=== PATIENT | male | born 1930 | race Caucasian/White ===

== ENCOUNTER 2016-10-21 05:35 | Inpatient (IN) ==
--- NOTE | 2016-10-21 05:53 | Emergency Department Note ---
START Narrative - START START: Patient presents from home with family for evaluation of MOUSTAPHA. He has had a dry cough for about a week. He states that he started coughing at 04:00 today and has not been able to stop. He now has some soreness in his chest. He denies fever, vomiting, or peripheral edema. He reports a Hx of CHF in the past. He was seen by Cardiology in May of last year and had a TTE done. This showed an EF of 60%. He had a stress test 11/2015 which was normal. He describes mild orthopnea. Sats are 93% on room air. We will check labs, CXR, EKG, and treat his symptoms. CAre of this patient will be transferred to Jesús Mejía CNP at shift change.
--- NOTE | 2016-10-21 06:05 | Emergency Department Note ---
Disposition Clinical Impression: Community acquired pneumonia Disposition: Home, Self-Care Condition: Good Time of Disposition: 07:24 SOB HPI - General Chief Complaint: ED Shortness of Breath/Dyspnea Stated Complaint: difficulty in breathing Time Seen by Provider: 10/21/16 05:46 Source: patient, family Limitations: no limitations Nursing Notes Reviewed: Yes Vital Signs Reviewed: Yes - History of Present Illness 85-year-old nontoxic-appearing male presents to the emergency department for a chief complaint of shortness of breath. The patient states that he has had a nonproductive cough for the past week. He states that yesterday afternoon, however, he began experiencing increased shortness of breath, as well as a worsening of his cough. He also describes a feeling of general malaise. He states that he is frequently chilled at night as of recent, however denies any overt fevers. He admits to being slightly nauseated, however denies any fever. He states that his shortness of breath is made worsened by exertion, as well as lying flat. He states that he has noticed an increased amount of swelling in his bilateral lower extremities. He denies any chest pain, but states that his chest is "sore from coughing". He denies any abdominal pain, diarrhea, constipation. The patient's son who is in the room states that the patient has previously been prescribed 2 different inhalers for his COPD from a single visit to a packaging tech here at [place], however the patient stopped taking them after only a brief duration, as he felt that "they just are not helping me". He denies any hemoptysis or pain with inspiration. He denies any unilateral leg or calf swelling. Pt Subjective Complaint: shortness of breath, cough Onset (ago): week(s) (1 week) Context: recent illness Consistency/Duration: gradually worsening Improves with: oxygen Worsens with: lying flat, exertion Known history of: COPD, congestive heart failure, diabetes, DVT Associated symptoms: Reports: fever, cough, orthopnea, nausea/vomiting (Nausea but no vomiting). Denies: chest pain, pain with inspiration, wheezing, sputum production, lower extremity pain, hemoptysis, diaphoresis, abdominal pain Treatment prior to arrival: none Cough present: Yes Cough Description: Involuntary Cough Frequency: Intermittent Sputum production: No - Related Data Home Medications Medication Instructions Recorded Confirmed Allopurinol [Zyloprim] 100 mg PO DAILY 05/13/15 10/21/16 Aspirin 81 mg PO DAILY 05/13/15 10/21/16 Cholecalciferol (Vitamin D3) 5,000 mg PO DAILY 05/13/15 10/21/16 [Vitamin D3] Insulin DETEMIR [Levemir] 45 unit SQ BID 05/13/15 10/21/16 Losartan [Cozaar] 25 mg PO DAILY 05/13/15 10/21/16 Pantoprazole [Protonix] 40 mg PO DAILY 05/13/15 10/21/16 Sertraline HCl [Zoloft] 25 mg PO HS 05/13/15 10/21/16 Simvastatin [Zocor] 20 mg PO HS 05/13/15 10/21/16 Vitamin E 400 unit PO DAILY 05/13/15 10/21/16 Levothyroxine [Synthroid] 50 mcg PO DAILY 11/29/15 10/21/16 Ranitidine HCl [Zantac] 150 mg PO HS 12/12/15 10/21/16 Insulin LISPRO [Humalog] 20 unit SQ QAM 04/27/16 10/21/16 Insulin LISPRO [Humalog] 25 unit SQ 1200 04/27/16 10/21/16 Insulin LISPRO [Humalog] 30 unit SQ QPM 04/27/16 10/21/16 Furosemide [Lasix] 40 mg PO DAILY 10/21/16 10/21/16 Previous Rx's Medication Instructions Recorded Nitroglycerin 0.4 mg SL Q5MIN PRN #10 tab.subl 05/14/15 Isosorbide MONOnitrate (24 HR) 30 mg PO DAILY #30 tab.er.24h 04/29/16 [Imdur] Metoprolol Tartrate [Lopressor] 50 mg PO BID #60 tablet 04/29/16 Albuterol Sulfate [Albuterol 2 puff IH Q4H PRN 30 Days 10/21/16 Inhaler] Budesonide/Formoterol 160/4.5 2 puff IH BIDR #1 inhaler 10/21/16 [Symbicort 160/4.5] Levofloxacin [Levaquin] 750 mg PO Q48H 7 Days 10/21/16 PredniSONE 40 mg PO DAILY #7 tablet 10/21/16 Allergies Allergy/AdvReac Type Severity Reaction Status Date / Time morphine Allergy Rash Verified 10/21/16 05:41 All systems ED: reviewed and negative except as stated. Constitutional: Reports: as per HPI, chills. Denies: fever, weakness, weight change Cardiovascular: Reports: as per HPI, dyspnea on exertion, orthopnea, edema ( Bilateral lower extremities). Denies: chest pain, palpitations, syncope Respiratory: Reports: as per HPI, cough, dyspnea, wheezes. Denies: hemoptysis, stridor, sputum production Gastrointestinal: Reports: as per HPI, nausea. Denies: abdominal pain, vomiting , diarrhea, constipation, hematemesis, melena, hematochezia Genitourinary: Denies: urgency, dysuria, frequency, hematuria Musculoskeletal: Denies: back pain, neck pain, arthralgia, myalgia Integumentary: Denies: rash, abrasion, lesions Neurological: Denies: headache, weakness, numbness, paresthesias, confusion, abnormal gait, vertigo Endocrine: Denies: fatigue Hematological/Lymphatic: Denies: easy bleeding, easy bruising Past Medical History - Past Medical History Attestation: Yes The following information was validated with the patient. Source: patient Medical history: Reports: diabetes, renal disease, myocardial infarction, hyperlipidemia, hypertension, pulmonary embolus, coronary artery disease, CHF, DVT Surgical history: Reports: cholecystectomy, herniorrhaphy, other, IVC Filter Psychiatric history: Reports: no psych history - Social History Smoking Status: Former smoker Smokeless Tobacco Status: No Alcohol use: Reports: none Drug use: Reports: none Physical Exam - General Limitations: no limitations General appearance: alert - Head Head exam: atraumatic, normocephalic, normal inspection - Eye Eye exam: Present: normal appearance, PERRL, EOMI. Absent: nystagmus - ENT ENT exam: mucous membranes moist - Neck Neck exam: Present: normal inspection, full ROM, trachea midline - Chest Chest inspection: Present: normal inspection, symmetric chest wall rise - Respiratory Respiratory exam: Present: wheezes (Faint expiratory wheezes noted bilaterally and throughout the periphery upon auscultation.). Absent: respiratory distress , stridor, accessory muscle use, prolonged expiratory phase - Cardiovascular Cardiovascular exam: Present: regular rate, normal rhythm, normal heart sounds - Abdominal Exam Abdominal exam: Present: soft, Non-Tender, normal bowel sounds. Absent: tenderness, distention, guarding, rebound, rigidity - Extremities Exam Extremities exam: Present: normal inspection, full ROM. Absent: tenderness, pedal edema - Expanded Lower Extremity Exam Lower leg exam: Present: swelling (1+ pretibial edema). Absent: palpable cord, Homans' sign - Neurological Exam Neurological exam: Present: alert, oriented X3 - Psychiatric Psychiatric exam: Present: normal affect, normal mood - Skin Skin exam: Present: warm, dry, intact, normal color. Absent: rash, cyanosis, diaphoresis, erythema, pallor, mottled Course Course Narrative: At this time, laboratory results and chest x-ray are pending. Chest x-ray shows left lower lobe atelectasis versus pneumonia. Given the patient's GFR of 35, we will initiate Levaquin 750 mg IV piggyback every 48 hours and admit to the hospitalist service. I have discussed this plan with Dr. Quinn, who has had a [id number] evaluation with the patient. Dr. Quinn is in agreement with this plan. I have discussed this plan with the patient and the patient is in agreement. 0745: I spoke with Dr. Proctor of the hospitalist service. Dr. Proctor requests a noncontrast CT of the chest, as well as a CRP. Dr. Proctor states that he will see the patient in the ER shortly. 0800: Dr. Proctor at bedside. He now requests a cancellation of the chest CT. 0940: Dr. Proctor has accepted the patient for admission to the hospitalist service. Vital Signs Temperature 98.7 F 10/21/16 05:38 Pulse Rate 85 10/21/16 05:38 Respiratory Rate 20 10/21/16 05:38 Blood Pressure 167/82 10/21/16 05:38 O2 Sat by Pulse Oximetry 93 L 10/21/16 05:38 Temperature 98.7 F 10/21/16 05:38 Pulse Rate 87 10/21/16 08:49 Respiratory Rate 20 10/21/16 06:34 Blood Pressure 155/79 10/21/16 08:49 O2 Sat by Pulse Oximetry 91 L 10/21/16 08:49 Oxygen Delivery Oxygen Delivery Nasal Cannula Shortness of Breath/Dyspnea - Medical Records Medical records reviewed: Yes I reviewed the patient's medical records. - Lab Data Lab results reviewed: Yes I reviewed the patient's lab results. Lab results narrative: Laboratory Last Values WBC 9.5 K/mcL (4.3-11.1) 10/21/16 06:05 RBC 4.78 M/mcL (4.19-5.50) 10/21/16 06:05 Hgb 11.3 g/dL (12.9-16.9) L 10/21/16 06:05 Hct 38.0 % (37.5-50.1) 10/21/16 06:05 MCV 79.5 fL (83.0-100.0) L 10/21/16 06:05 MCH 23.6 pg (28.0-33.3) L 10/21/16 06:05 MCHC 29.7 g/dL (31.6-35.5) L 10/21/16 06:05 RDW 18.6 % (11.5-14.5) H 10/21/16 06:05 Plt Count 256 K/mcL (140-400) 10/21/16 06:05 MPV 10.6 fL (9.4-12.4) 10/21/16 06:05 Immature Gran % 0.3 % (0-4) 10/21/16 06:05 Seg Neutrophils % 80.5 % 10/21/16 06:05 Lymphocytes % 8.8 % 10/21/16 06:05 Monocytes % 8.3 % 10/21/16 06:05 Eosinophils % 1.4 % 10/21/16 06:05 Basophils % 0.7 % 10/21/16 06:05 Neutrophils # 7.6 K/mcL (1.6-8.9) 10/21/16 06:05 Lymphocytes # 0.8 K/mcL (0.6-4.6) 10/21/16 06:05 Monocytes # 0.8 K/mcL (0.0-1.3) 10/21/16 06:05 Eosinophils # 0.1 K/mcL (0.0-0.6) 10/21/16 06:05 Basophils # 0.1 K/mcL (0.0-0.2) 10/21/16 06:05 PT 11.6 Seconds (9.4-12.1) 10/21/16 06:05 INR 1.1 10/21/16 06:05 APTT 31.5 Seconds (26.0-36.0) 10/21/16 06:05 Sodium 140 mEq/L (136-145) 10/21/16 06:05 Potassium 4.1 mEq/L (3.5-4.5) 10/21/16 06:05 Chloride 106 mEq/L (98-109) 10/21/16 06:05 Carbon Dioxide 23 mEq/L (19-29) 10/21/16 06:05 BUN 22 mg/dL (8-26) 10/21/16 06:05 Creatinine 1.83 mg/dL (0.72-1.25) H 10/21/16 06:05 Est GFR ( Amer) 43 (> 60) L 10/21/16 06:05 Est GFR (Non-Af Amer) 35 (> 60) L 10/21/16 06:05 BUN/Creatinine Ratio 12 (6-26) 10/21/16 06:05 Glucose 127 mg/dL (70-99) H 10/21/16 06:05 Calculated Osmolality 295 (280-300) 10/21/16 06:05 Calcium 9.4 mg/dL (8.6-10.8) 10/21/16 06:05 Total Bilirubin 0.8 mg/dL (0.2-1.2) 10/21/16 06:05 Direct Bilirubin 0.2 mg/dL (0.0-0.5) 10/21/16 06:05 Indirect Bilirubin 0.6 mg/dL (0.0-1.2) 10/21/16 06:05 AST 31 Units/L (5-34) 10/21/16 06:05 ALT 18 Units/L (0-55) 10/21/16 06:05 Alkaline Phosphatase 75 Units/L (38-126) 10/21/16 06:05 Troponin I 0.00 ng/mL (0-0.03) 10/21/16 06:05 B-Natriuretic Peptide 189 pg/mL (0-100) H 10/21/16 06:05 Serum Total Protein 7.2 g/dL (6.0-8.3) 10/21/16 06:05 Albumin 3.4 g/dL (3.5-5.0) L 10/21/16 06:05 Globulin 3.8 g/dL (2.4-3.5) H 10/21/16 06:05 Albumin/Globulin Ratio 0.9 (1.1-2.2) L 10/21/16 06:05 Result diagrams: 10/21/16 06:05 10/21/16 06:05 Lab Results 10/21/16 10/21/16 10/21/16 Range/Units 06:05 06:05 06:05 WBC 9.5 (4.3-11.1) K/mcL RBC 4.78 (4.19-5.50) M/mcL Hgb 11.3 L (12.9-16.9) g/dL Hct 38.0 (37.5-50.1) % MCV 79.5 L (83.0-100.0) fL MCH 23.6 L (28.0-33.3) pg MCHC 29.7 L (31.6-35.5) g/dL RDW 18.6 H (11.5-14.5) % Plt Count 256 (140-400) K/mcL MPV 10.6 (9.4-12.4) fL Immature Gran % 0.3 (0-4) % Seg Neutrophils % 80.5 % Lymphocytes % 8.8 % Monocytes % 8.3 % Eosinophils % 1.4 % Basophils % 0.7 % Neutrophils # 7.6 (1.6-8.9) K/mcL Lymphocytes # 0.8 (0.6-4.6) K/mcL Monocytes # 0.8 (0.0-1.3) K/mcL Eosinophils # 0.1 (0.0-0.6) K/mcL Basophils # 0.1 (0.0-0.2) K/mcL PT 11.6 (9.4-12.1) Seconds INR 1.1 APTT 31.5 (26.0-36.0) Seconds Sodium 140 (136-145) mEq/L Potassium 4.1 (3.5-4.5) mEq/L Chloride 106 (98-109) mEq/L Carbon Dioxide 23 (19-29) mEq/L BUN 22 (8-26) mg/dL Creatinine 1.83 H (0.72-1.25) mg/dL Est GFR ( Amer) 43 L (> 60) Est GFR (Non-Af Amer) 35 L (> 60) BUN/Creatinine Ratio 12 (6-26) Glucose 127 H (70-99) mg/dL Calculated Osmolality 295 (280-300) Calcium 9.4 (8.6-10.8) mg/dL Total Bilirubin 0.8 (0.2-1.2) mg/dL Direct Bilirubin 0.2 (0.0-0.5) mg/dL Indirect Bilirubin 0.6 (0.0-1.2) mg/dL AST 31 (5-34) Units/L ALT 18 (0-55) Units/L Alkaline Phosphatase 75 (38-126) Units/L Troponin I (0-0.03) ng/mL C-Reactive Protein 19 H (Less than 5) mg/L B-Natriuretic Peptide (0-100) pg/mL Serum Total Protein 7.2 (6.0-8.3) g/dL Albumin 3.4 L (3.5-5.0) g/dL Globulin 3.8 H (2.4-3.5) g/dL Albumin/Globulin Ratio 0.9 L (1.1-2.2) 10/21/16 10/21/16 Range/Units 06:05 06:05 WBC (4.3-11.1) K/mcL RBC (4.19-5.50) M/mcL Hgb (12.9-16.9) g/dL Hct (37.5-50.1) % MCV (83.0-100.0) fL MCH (28.0-33.3) pg MCHC (31.6-35.5) g/dL RDW (11.5-14.5) % Plt Count (140-400) K/mcL MPV (9.4-12.4) fL Immature Gran % (0-4) % Seg Neutrophils % % Lymphocytes % % Monocytes % % Eosinophils % % Basophils % % Neutrophils # (1.6-8.9) K/mcL Lymphocytes # (0.6-4.6) K/mcL Monocytes # (0.0-1.3) K/mcL Eosinophils # (0.0-0.6) K/mcL Basophils # (0.0-0.2) K/mcL PT (9.4-12.1) Seconds INR APTT (26.0-36.0) Seconds Sodium (136-145) mEq/L Potassium (3.5-4.5) mEq/L Chloride (98-109) mEq/L Carbon Dioxide (19-29) mEq/L BUN (8-26) mg/dL Creatinine (0.72-1.25) mg/dL Est GFR ( Amer) (> 60) Est GFR (Non-Af Amer) (> 60) BUN/Creatinine Ratio (6-26) Glucose (70-99) mg/dL Calculated Osmolality (280-300) Calcium (8.6-10.8) mg/dL Total Bilirubin (0.2-1.2) mg/dL Direct Bilirubin (0.0-0.5) mg/dL Indirect Bilirubin (0.0-1.2) mg/dL AST (5-34) Units/L ALT (0-55) Units/L Alkaline Phosphatase (38-126) Units/L Troponin I 0.00 (0-0.03) ng/mL C-Reactive Protein (Less than 5) mg/L B-Natriuretic Peptide 189 H (0-100) pg/mL Serum Total Protein (6.0-8.3) g/dL Albumin (3.5-5.0) g/dL Globulin (2.4-3.5) g/dL Albumin/Globulin Ratio (1.1-2.2) - Radiology Data Radiology results reviewed: Yes I reviewed the patient's radiology results. - EKG Data EKG attestation: Yes I reviewed and interpreted this EKG. EKG results narrative: EKG reviewed by Dr. Butler as well. EKG shows a sinus rhythm at a rate of 80 bpm with a probable inferior SC, probably old. No STEMI. EKG shows normal: Reports: sinus rhythm Rate: Reports: normal Rhythm: Reports: NSR Attestation Statement - Attestation Attestation: For this encounter, I have reviewed the [employer]ATH[employer] BUFFER or PA documentation, treatment plan, and medical decision making; and I have had face to face time with this patient. 85-year-old who comes in with increasing shortness of breath and cough. Physical exam he appears comfortable somewhat tachypneic. Chest x-ray shows left lower lobe atelectasis versus pneumonia. Count is normal. Troponin is negative slight elevation in BNP. Patient will be admitted for further evaluation and treatment.
[2016-10-21 06:17] LABS: Basophils # 0.1 K/mcL (0.0-0.2); Basophils % 0.7 %; Eosinophils # 0.1 K/mcL (0.0-0.6); Eosinophils % 1.4 %; Hemoglobin 11.3 g/dL (12.9-16.9); Immature Granulocytes % 0.3 % (0-4); Lymphocytes # 0.8 K/mcL (0.6-4.6); Lymphocytes % 8.8 %; Mean Corpuscular HGB Conc 29.7 g/dL (31.6-35.5); Mean Corpuscular Hemoglobin 23.6 pg (28.0-33.3); Mean Corpuscular Volume 79.5 fL (83.0-100.0); Mean Platelet Volume 10.6 fL (9.4-12.4); Monocytes # 0.8 K/mcL (0.0-1.3); Monocytes % 8.3 %; Neutrophils # 7.6 K/mcL (1.6-8.9); Platelet Count 256 K/mcL (140-400); Red Blood Count 4.78 M/mcL (4.19-5.50); Red Cell Distribution Width 18.6 % (11.5-14.5); Segmented Neutrophils % 80.5 %
[2016-10-21 06:32] LABS: Albumin 3.4 g/dL (3.5-5.0); Albumin/Globulin Ratio 0.9 (1.1-2.2); Bilirubin,Direct 0.2 mg/dL (0.0-0.5); Bilirubin,Indirect 0.6 mg/dL (0.0-1.2); Bilirubin,Total 0.8 mg/dL (0.2-1.2); Calcium 9.4 mg/dL (8.6-10.8); Globulin 3.8 g/dL (2.4-3.5); Potassium 4.1 mEq/L (3.5-4.5); Total Protein 7.2 g/dL (6.0-8.3)
[2016-10-21 06:45] LABS: INR 1.1; Prothrombin Time 11.6 Seconds (9.4-12.1)
[2016-10-21 06:47] LABS: Activated Partial Thrombo Time 31.5 Seconds (26.0-36.0)
[2016-10-21] MEDS ORDERED: Levofloxacin 750 MG/150 ML 750 MG/150 ML BAG IVPB SCH (07:06)
[2016-10-21] MEDS ORDERED: Albuterol 2.5 MG/3 ML NEBULIZER IH ONE (07:06)
[2016-10-21] MEDS ORDERED: predniSONE 20 MG TABLET PO ONE (08:39)
--- NOTE | 2016-10-21 08:44 | Discharge Summary ---
Date of Encounter: 10/21/16 Time of Encounter: 08:15 - Discharge Diagnosis (1) COPD exacerbation Priority: Primary Status: Acute Comments: Not hypoxic NOT WHEEZING nOT COUGHING AT THE TIME OF MY EXAM nO DIFFICULTY breathing. Chest is clear though diminished, not unusual with COPD. CXR: No infiltrates, fibrosis and bibasilar atelectasis. Reviewed prior CT 05/2016, confirms emphysema, fibrosis and bibasilar atelectasis. DC home on prednisone 40mg po x 7 days Symbicort 2puff BID aLBUTEROL MDI 2 puff q4h PRN FOR sob. F/U with PCP and incident response engineer. (2) Acute bronchitis Priority: Primary Status: Acute Qualifiers: Bronchitis organism: unspecified organism Qualified Code(s): J20.9 - Acute bronchitis, unspecified - Discharge Medications Home Medications: Allopurinol [Zyloprim] 100 mg PO DAILY 05/13/15 [History] Aspirin 81 mg PO DAILY 05/13/15 [History] Cholecalciferol (Vitamin D3) [Vitamin D3] 5,000 mg PO DAILY 05/13/15 [History] Insulin DETEMIR [Levemir] 45 unit SQ BID 05/13/15 [History] Losartan [Cozaar] 25 mg PO DAILY 05/13/15 [History] Pantoprazole [Protonix] 40 mg PO DAILY 05/13/15 [History] Sertraline HCl [Zoloft] 25 mg PO HS 05/13/15 [History] Simvastatin [Zocor] 20 mg PO HS 05/13/15 [History] Vitamin E 400 unit PO DAILY 05/13/15 [History] Nitroglycerin 0.4 mg SL Q5MIN PRN #10 tab.subl 05/14/15 [Rx] Levothyroxine [Synthroid] 50 mcg PO DAILY 11/29/15 [History] Ranitidine HCl [Zantac] 150 mg PO HS 12/12/15 [History] Insulin LISPRO [Humalog] 20 unit SQ QAM 04/27/16 [History] Insulin LISPRO [Humalog] 25 unit SQ 1200 04/27/16 [History] Insulin LISPRO [Humalog] 30 unit SQ QPM 04/27/16 [History] Isosorbide MONOnitrate (24 HR) [Imdur] 30 mg PO DAILY #30 tab.er.24h 04/29/16 [ Rx] Metoprolol Tartrate [Lopressor] 50 mg PO BID #60 tablet 04/29/16 [Rx] Albuterol Sulfate [Albuterol Inhaler] 2 puff IH Q4H PRN 30 Days 10/21/16 [Rx] Budesonide/Formoterol 160/4.5 [Symbicort 160/4.5] 2 puff IH BIDR #1 inhaler 03/30 [Rx] Furosemide [Lasix] 40 mg PO DAILY 10/21/16 [History] Levofloxacin [Levaquin] 750 mg PO Q48H 7 Days 10/21/16 [Rx] PredniSONE 40 mg PO DAILY #7 tablet 10/21/16 [Rx] Allergies/Adverse Reactions: Allergies morphine Allergy (Verified 10/21/16 05:41) Rash Procedures/tests Complete & Pending: Procedures Performed prior 72 hours Category Date Time Status ECG 12 lead ECG [ECG] Stat Y 10/21/16 05:46 Ordered Primary care physician: Corina Kumari CNP Consults: Vinay Proctor (Hospitalist) Discharging clinician: Vinay Proctor Anticipated date of discharge: 10/21/16 - Patient Status Disposition: Home, Self-Care Condition: Good Functional capacity at discharge: independent ambulation Overall status at discharge: patient is progressing back to baseline - Discharge Instructions Follow Up With: Corina Kumari CNP [Primary Care Provider] - - Diet and Activity Activity: resume usual activities as tolerated Diet: advance to your usual diet Hospital course: Mr. Colon is a 85 year old male - Time Spent with Patient Total time spent providing and/or coordinating discharge services: - Constitutional Vitals: Temp Pulse Resp BP Pulse Ox 98.7 F 86 20 163/79 96 10/21/16 05:38 10/21/16 07:36 10/21/16 06:34 10/21/16 07:36 10/21/16 07:36
--- NOTE | 2016-10-21 08:57 | Internal Medicine Consult Note ---
Date of Encounter: 10/21/16 Time of Encounter: 08:15 - Assessment and Plan (1) COPD exacerbation Current Visit: Yes Status: Acute (2) Acute bronchitis Current Visit: Yes Status: Acute Qualifiers: Bronchitis organism: unspecified organism Qualified Code(s): J20.9 - Acute bronchitis, unspecified Internal Medicine - CN: HPI - Data of Consult Requesting Physician: Lisa Sheikh - Consult Narrative History of present illness: Mr. Colon is a 85 year old male Past Med Surg Social Fam HX - Past Medical History Medical history: diabetes, renal disease, myocardial infarction, hyperlipidemia , hypertension, pulmonary embolus, coronary artery disease, CHF, DVT Psychiatric history: no psych history - Past Surgical History Surgical History: cholecystectomy, herniorrhaphy, other, IVC Filter - Social History Smoking Status: Former smoker Smokeless Tobacco Status: No Alcohol use: none Drug use: none - Family History Father Living Status: Hx Family Cardiac Disorders: Yes Hx Family Endocrine Disorder: Yes Internal Medicine - CN: Meds Allopurinol [Zyloprim] 100 mg PO DAILY 05/13/15 [History] Aspirin 81 mg PO DAILY 05/13/15 [History] Cholecalciferol (Vitamin D3) [Vitamin D3] 5,000 mg PO DAILY 05/13/15 [History] Insulin DETEMIR [Levemir] 45 unit SQ BID 05/13/15 [History] Losartan [Cozaar] 25 mg PO DAILY 05/13/15 [History] Pantoprazole [Protonix] 40 mg PO DAILY 05/13/15 [History] Sertraline HCl [Zoloft] 25 mg PO HS 05/13/15 [History] Simvastatin [Zocor] 20 mg PO HS 05/13/15 [History] Vitamin E 400 unit PO DAILY 05/13/15 [History] Nitroglycerin 0.4 mg SL Q5MIN PRN #10 tab.subl 05/14/15 [Rx] Levothyroxine [Synthroid] 50 mcg PO DAILY 11/29/15 [History] Ranitidine HCl [Zantac] 150 mg PO HS 12/12/15 [History] Insulin LISPRO [Humalog] 20 unit SQ QAM 04/27/16 [History] Insulin LISPRO [Humalog] 25 unit SQ 1200 04/27/16 [History] Insulin LISPRO [Humalog] 30 unit SQ QPM 04/27/16 [History] Isosorbide MONOnitrate (24 HR) [Imdur] 30 mg PO DAILY #30 tab.er.24h 04/29/16 [ Rx] Metoprolol Tartrate [Lopressor] 50 mg PO BID #60 tablet 04/29/16 [Rx] Albuterol Sulfate [Albuterol Inhaler] 2 puff IH Q4H PRN 30 Days 10/21/16 [Rx] Budesonide/Formoterol 160/4.5 [Symbicort 160/4.5] 2 puff IH BIDR #1 inhaler 03/30 [Rx] Furosemide [Lasix] 40 mg PO DAILY 10/21/16 [History] Levofloxacin [Levaquin] 750 mg PO Q48H 7 Days 10/21/16 [Rx] PredniSONE 40 mg PO DAILY #7 tablet 10/21/16 [Rx] Allergies morphine Allergy (Verified 10/21/16 05:41) Rash Internal Medicine - CN: Exam - Constitutional Vitals: Temp Pulse Resp BP Pulse Ox 98.7 F 87 20 155/79 91 L 10/21/16 05:38 10/21/16 08:49 10/21/16 06:34 10/21/16 08:49 10/21/16 08:49 Internal Medicine - CN: Reslt - Labs CBC & Chem 7: 10/21/16 06:05 10/21/16 06:05 - ABG Interpretation ABG results: PT/INR, D-dimer PT 11.6 Seconds (9.4-12.1) 10/21/16 06:05 Consult Discharge Plan - Plan Referrals: Corina Kumari, YARA [Primary Care Provider] - Prescriptions: Albuterol Sulfate [Albuterol Inhaler] 2 puff IH Q4H PRN 30 Days PRN Reason: Shortness Of Breath/Wheezing Budesonide/Formoterol 160/4.5 [Symbicort 160/4.5] 2 puff IH BIDR #1 inhaler Levofloxacin [Levaquin] 750 mg PO Q48H 7 Days PredniSONE 40 mg PO DAILY #7 tablet
[2016-10-21] MEDS ORDERED: Ondansetron 4 MG/2 ML VIAL IVP PRN (09:11)
[2016-10-21] MEDS ORDERED: Acetaminophen 325 MG TABLET PO PRN (09:11)
[2016-10-21] MEDS ORDERED: Naloxone 0.4 MG/ML INJ IVP PRN (09:11)
[2016-10-21] MEDS ORDERED: Nitroglycerin 0.4 MG TAB.SUBL SL PRN (09:13)
[2016-10-21] MEDS ORDERED: 0.9 % Sodium Chloride 1,000 ML IVC SCH (09:15)
[2016-10-21] MEDS ORDERED: Dextrose Gel 15 GM PO PRN ×2 (09:17)
[2016-10-21] MEDS ORDERED: *HR* Dextrose 50 % in Water (Syg) 50 ML SYRINGE IVP PRN (09:17)
[2016-10-21] MEDS ORDERED: D5% in Water 1,000 ML IV PRN (09:17)
--- NOTE | 2016-10-21 09:36 | Internal Med History&Physical ---
Date of Encounter: 10/21/16 Time of Encounter: 08:15 Assessment and Plan (1) COPD exacerbation Current visit: Yes Status: Acute (2) Acute bronchitis Current visit: Yes Status: Acute Qualifiers: Bronchitis organism: unspecified organism Qualified Code(s): J20.9 - Acute bronchitis, unspecified Internal Medicine - H&P: HPI Chief complaint: SOB, coughing x 2 days Admitted From: Emergency Dept Plans for Post Hospital Care: Home History of present illness: Mr. Colon is a 85 year old male with medical history significant for HTN, HLD, DM (II), CAD s/p MA, PCI with intra-coronary stents (2010), hx extensive PE's/dvts with IVC filter (2010), chronic diastolic CHF, CKD(III), presents with malaise, SOB and cough of 3-4 days duration. His son visited him yesterday suggested that he comes to the ED, but the patient declined. However, over a phone call this morning, the son observes the sounded ill and somewhat short of breath as he he cound speak in complete sentences. The son later reports the father may have been confused yesterday, but he brushed it off as because his father is deaf and often answers yes to every question. He did not fall. No fever, no sore -throat, no hemoptysis, hematemesis, or hematochezia. No urinary or new-onset neurological symptoms. He up-to-date with influenza and pneumococcal vaccination. He is a non-smoker. He has not been compliant with use of Symbicort because it is his impression that it is not effective. He is DNR as per discussion, he nominates his son Eriberto Colon ([phone]) as his NOK/POA. Trial of ambulation, patient was able to keep pulse ox >91%, but he was lethargic and unsteady. I understand he lives alone. ROS: A 10-point ROS was performed, positives and relevant negatives are detailed , system-symptom not mentioned is assumed negative unless otherwise stated. Positives: slight nausea, WILLIAM, his son reports probable confusion (but he is deaf), chronic deafness, chest soreness from coughing, Negatives: No PND or orthopnea., no chest pain (no pleurisy), no fever, no sore- throat, no hemoptysis, hematemesis, or hematochezia, no abdominal pain or diarrhea, no urinary or new-onset neurological symptoms. Vital Signs Temperature 98.7 F 10/21/16 05:38 Pulse Rate 85 10/21/16 05:38 Respiratory Rate 20 10/21/16 05:38 Blood Pressure 167/82 10/21/16 05:38 O2 Sat by Pulse Oximetry 93 L 10/21/16 05:38 Temperature 98.7 F 10/21/16 05:38 Pulse Rate 86 10/21/16 07:36 Respiratory Rate 20 10/21/16 06:34 Blood Pressure 163/79 10/21/16 07:36 O2 Sat by Pulse Oximetry 96 10/21/16 07:36 Pulse ox=95-97% on 2L oxygen by nasal cannula, 91-94% on room air. Not in distress, elderly, somewhat lethargic, non-toxic looking. Not pale, anicteric, afebrile, acyanotic. Moist mucosa. HEENT: No JVD, no cervical lymphadenopathy, Chest : CTAB, diminished generally, especially in the bases. Heart: RRR, HS1/2, no m/r/g. Abdomen: soft, non-tender, no masses, PERSONAL SECURITY SPECIALIST: AAO X 3, no gross focal neurological signs. Skin: No active skin lesion Extremities: Trace pedal edema, normal pedal pulses. Lab Results 10/21/16 10/21/16 10/21/16 Range/Units 06:05 06:05 06:05 WBC 9.5 (4.3-11.1) K/mcL RBC 4.78 (4.19-5.50) M/mcL Hgb 11.3 L (12.9-16.9) g/dL Hct 38.0 (37.5-50.1) % MCV 79.5 L (83.0-100.0) fL MCH 23.6 L (28.0-33.3) pg MCHC 29.7 L (31.6-35.5) g/dL RDW 18.6 H (11.5-14.5) % Plt Count 256 (140-400) K/mcL MPV 10.6 (9.4-12.4) fL Immature Gran % 0.3 (0-4) % Seg Neutrophils % 80.5 % Lymphocytes % 8.8 % Monocytes % 8.3 % Eosinophils % 1.4 % Basophils % 0.7 % Neutrophils # 7.6 (1.6-8.9) K/mcL Lymphocytes # 0.8 (0.6-4.6) K/mcL Monocytes # 0.8 (0.0-1.3) K/mcL Eosinophils # 0.1 (0.0-0.6) K/mcL Basophils # 0.1 (0.0-0.2) K/mcL PT 11.6 (9.4-12.1) Seconds INR 1.1 APTT 31.5 (26.0-36.0) Seconds Sodium 140 (136-145) mEq/L Potassium 4.1 (3.5-4.5) mEq/L Chloride 106 (98-109) mEq/L Carbon Dioxide 23 (19-29) mEq/L BUN 22 (8-26) mg/dL Creatinine 1.83 H (0.72-1.25) mg/dL Est GFR ( Amer) 43 L (> 60) Est GFR (Non-Af Amer) 35 L (> 60) BUN/Creatinine Ratio 12 (6-26) Glucose 127 H (70-99) mg/dL Calculated Osmolality 295 (280-300) Calcium 9.4 (8.6-10.8) mg/dL Total Bilirubin 0.8 (0.2-1.2) mg/dL Direct Bilirubin 0.2 (0.0-0.5) mg/dL Indirect Bilirubin 0.6 (0.0-1.2) mg/dL AST 31 (5-34) Units/L ALT 18 (0-55) Units/L Alkaline Phosphatase 75 (38-126) Units/L Troponin I (0-0.03) ng/mL B-Natriuretic Peptide (0-100) pg/mL Serum Total Protein 7.2 (6.0-8.3) g/dL Albumin 3.4 L (3.5-5.0) g/dL Globulin 3.8 H (2.4-3.5) g/dL Albumin/Globulin Ratio 0.9 L (1.1-2.2) CRP=19. Chest xray: Bibasilar atelectasis, fibrosis. No pulmonary vascular congestion CT chest of 05/2016: emphysema, fibrosis, bibasiilar atelectasis EKG: NSR @ 80 bpm, EVIDENCE OF PRIOR INFERIOR WALL INFARCT, NO ACUTE FINDINGS. IMP: Acute bronchitis on COPD Mild COPD exacerbation Mild dehydration. Chronic morbidities COPD-emphysema with fibrosis and bibasilar atelectasis CAD DM2 on insulin Chronic diastolic heart failure, stable. CKD IIIB HTN HLD Hypothyroidism Hyperuricemia History of DVT/PE, IVC filter in place. PLAN Admit to observation Levaquin po 750mg q48h, starting 10/23/2016 Prednisone 40 mg po QD Albuterol nebs QIDR Symbicort 2 puff BID Basal, nutritional and correctional insulin Continue other medications of chronic morbidities. Consult social problems specialist for discharge planning, evaluation of need for home health services, and home safety. I discussed my findings and assessment with the patient, his son was at bedside , they are agreeable to admission. Given he lives alone, lethargy and unsteady gait on trial of ambulation, patient is high risk for deterioration and fall without close monitoring. He is admitted to observation. I envisage a 1-2 days hospitalization. Past Med Surg Social Fam HX - Past Medical History Medical history: diabetes, renal disease, myocardial infarction, hyperlipidemia , hypertension, pulmonary embolus, coronary artery disease, CHF, DVT Psychiatric history: no psych history - Past Surgical History Surgical History: cholecystectomy, herniorrhaphy, other, IVC Filter - Social History Smoking Status: Former smoker Smokeless Tobacco Status: No Alcohol use: none Drug use: none - Family History Father Living Status: Hx Family Cardiac Disorders: Yes Hx Family Endocrine Disorder: Yes Internal Medicine - H&P: Meds Allopurinol [Zyloprim] 100 mg PO DAILY 05/13/15 [History] Aspirin 81 mg PO DAILY 05/13/15 [History] Cholecalciferol (Vitamin D3) [Vitamin D3] 5,000 mg PO DAILY 05/13/15 [History] Insulin DETEMIR [Levemir] 45 unit SQ BID 05/13/15 [History] Losartan [Cozaar] 25 mg PO DAILY 05/13/15 [History] Pantoprazole [Protonix] 40 mg PO DAILY 05/13/15 [History] Sertraline HCl [Zoloft] 25 mg PO HS 05/13/15 [History] Simvastatin [Zocor] 20 mg PO HS 08/30/15 [History] Vitamin E 400 unit PO DAILY 05/13/15 [History] Nitroglycerin 0.4 mg SL Q5MIN PRN #10 tab.subl 05/14/15 [Rx] Levothyroxine [Synthroid] 50 mcg PO DAILY 11/29/15 [History] Ranitidine HCl [Zantac] 150 mg PO HS 12/12/15 [History] Insulin LISPRO [Humalog] 20 unit SQ QAM 04/27/16 [History] Insulin LISPRO [Humalog] 25 unit SQ 1200 04/27/16 [History] Insulin LISPRO [Humalog] 30 unit SQ QPM 04/27/16 [History] Isosorbide MONOnitrate (24 HR) [Imdur] 30 mg PO DAILY #30 tab.er.24h 04/29/16 [ Rx] Metoprolol Tartrate [Lopressor] 50 mg PO BID #60 tablet 04/29/16 [Rx] Albuterol Sulfate [Albuterol Inhaler] 2 puff IH Q4H PRN 30 Days 10/21/16 [Rx] Budesonide/Formoterol 160/4.5 [Symbicort 160/4.5] 2 puff IH BIDR #1 inhaler 03/30 [Rx] Furosemide [Lasix] 40 mg PO DAILY 10/21/16 [History] Levofloxacin [Levaquin] 750 mg PO Q48H 7 Days 10/21/16 [Rx] PredniSONE 40 mg PO DAILY #7 tablet 10/21/16 [Rx] Allergies morphine Allergy (Verified 10/21/16 05:41) Rash All Systems PM: A 10-system review of systems was performed and is negative for pertinent findings except as documented above in the HPI. - Constitutional Vitals: Temp Pulse Resp BP Pulse Ox 98.7 F 87 20 155/79 91 L 10/21/16 05:38 10/21/16 08:49 10/21/16 06:34 10/21/16 08:49 10/21/16 08:49 Internal Med - H&P Results - Labs CBC & Chem 7: 10/21/16 06:05 10/21/16 06:05
[2016-10-21] MEDS: Albuterol 2.5 MG/3 ML NEBULIZER IH SCH ×3 (10:24→23:10)
[2016-10-21] MEDS: Budesonide/Formoterol 160/4.5 MDI IH SCH ×2 (10:24→23:10)
[2016-10-21] MEDS: Insulin LISPRO 300 UNITS/3 ML VIAL SQ SCH ×5 (13:43→21:57)
[2016-10-21] MEDS: Insulin DETEMIR 100 UNIT/ML X5UNITS SQ SCH ×2 (13:43→21:56)
--- NOTE | 2016-10-21 14:48 | Electrocardiograph Report ---
[address] [address] Test Date: 2016-10-21 Pat Name: Sierra Isaiah Department: 105 Room: 3B Gender: M Certified Nurse Midwife: : 1930 Requested By: Shantel Avila Order Number: [id number] Reading MD: Ruth Schmitz Measurements Intervals [place] Rate: 80 P: 51 [place]: 209 QRS: 63 QRSD: 109 T: 32 QT: 376 QTc: 412 Interpretive Statements SINUS RHYTHM Electronically Signed On 10-21-2016 14:47:29 EST by Ruth Schmitz
[2016-10-22] MEDS: Albuterol 2.5 MG/3 ML NEBULIZER IH SCH ×4 (04:29→22:17)
[2016-10-22] MEDS: *HR* Enoxaparin 40 MG/0.4 ML SYRINGE SQ SCH (06:08)
[2016-10-22] MEDS: Aspirin 81 MG TAB.CHEW PO SCH (08:33)
[2016-10-22] MEDS: Cholecalciferol (D-3) 1,000 UNIT TABLET PO SCH (08:33)
[2016-10-22] MEDS: Isosorbide MONOnitrate (24 HR) 30 MG TAB.ER.24H PO SCH (08:33)
[2016-10-22] MEDS: predniSONE 20 MG TABLET PO SCH (08:34)
[2016-10-22] MEDS: Furosemide 40 MG TABLET PO SCH (08:34)
[2016-10-22] MEDS: Insulin LISPRO 300 UNITS/3 ML VIAL SQ SCH ×7 (08:35→20:22)
[2016-10-22 09:46] LABS: Calcium 9.3 mg/dL (8.6-10.8); Potassium 4.2 mEq/L (3.5-4.5)
[2016-10-22] MEDS: Budesonide/Formoterol 160/4.5 MDI IH SCH ×2 (10:39→22:17)
[2016-10-22] MEDS: Insulin DETEMIR 100 UNIT/ML X5UNITS SQ SCH ×2 (12:38→20:22)
--- NOTE | 2016-10-22 16:54 | Internal Med Progress Note ---
Date of Encounter: 10/22/16 Time of Encounter: 11:50 - Assessment and plan (1) Acute bronchitis Current Visit: Yes Status: Acute Assessment and plan: Conitnue po levoquin Continue duo nebs RTC Continue prednisone At time of review, O2 on room air was satisfactory Attempt Home O2 qualification a.m Qualifiers: Bronchitis organism: unspecified organism Qualified Code(s): J20.9 - Acute bronchitis, unspecified (2) COPD exacerbation Current Visit: Yes Status: Acute Assessment and plan: As above (3) CKD (chronic kidney disease) stage 3, GFR 30-59 ml/min Current Visit: Yes Status: Chronic Assessment and plan: CR stable (4) Chronic diastolic CHF (congestive heart failure) Current Visit: Yes Status: Chronic Assessment and plan: NO signs or symptoms of congestion or overload, continue home meds (5) Diabetes Current Visit: Yes Status: Chronic Assessment and plan: FS ACHS Continue insulin Qualifiers: Diabetes mellitus type: type 2 Diabetes mellitus complication status: with kidney complications Diabetes mellitus complication detail: with chronic kidney disease Chronic kidney disease stage: stage 3 (moderate) Qualified Code(s): E11.22 - Type 2 diabetes mellitus with diabetic chronic kidney disease ; N18.3 - Chronic kidney disease, stage 3 (moderate); Z79.4 - [facility] (current ) use of insulin (6) History of pulmonary embolus (PE) Current Visit: Yes Status: Resolved (7) Coronary artery disease Current Visit: Yes Status: Chronic Assessment and plan: Chronic, stable, continue home meds Qualifiers: Coronary Disease-Associated Artery/Lesion type: [place] artery Associated angina: without angina Qualified Code(s): I25.10 - Atherosclerotic heart disease of [place] coronary artery without angina pectoris (8) Obesity Current Visit: Yes Status: Chronic Qualifiers: Obesity type: unspecified obesity type Obesity severity: morbid Qualified Code(s): E66.01 - Morbid (severe) obesity due to excess calories (9) Acute respiratory failure with hypoxia Current Visit: Yes Status: Acute Assessment and plan: Transient, due to acute bronchitis and COPDE Continue supplemental O2 Patient is not on home O2 Qualify for possible Home O2 prior to d/c - Subjective Interval history: 85 Y/O M, independent living PMH of HTN, HLD, DMII, CADs/p PCI, PE s/p IVC filter, Chronic diastolic CHF, CKD III, COPD He is being managed for acute hypoxic respiratory failure secondary to acute bronchitis and COPDE He is seen at bedside with his son, who reports patient feels better - Constitutional Vitals: Temp Pulse Resp BP Pulse Ox 97.5 F L 74 20 116/59 95 10/22/16 16:15 10/22/16 16:15 10/22/16 16:18 10/22/16 16:15 10/22/16 16:18 General appearance: Present: A&O X 3, pleasant, no acute distress, obese - Head Head exam: Present: atraumatic, normocephalic - Eye Eye exam: Present: PERRL, conjuntiva pink, sclera anicteric Pupils: Present: PERRL - Neck Neck exam general surgery: Present: supple, trachea midline. Absent: lymphadenopathy - Respiratory Respiratory exam: Absent: accessory muscle use, rales, rhonchi, wheezes Additional comments: few scattered wheezes bilaterally - Cardiovascular Cardiovascular exam: Present: RRR, +S1, +S2. Absent: diastolic murmur, gallop, rubs, systolic murmur - GI/Abdominal GI/Abdominal exam: Present: normal bowel sounds, soft, no peritoneal signs. Absent: distended, tenderness - Extremities Exam Extremities exam: Present: warm, radial pulses palpable and symetrical. Absent : calf tenderness, cyanotic, pedal edema - Neurological Exam Neurological exam: Present: CN II-XII intact, oriented X3, no focal deficits. Absent: pronater drift, facial droop, speech deficit - Skin Skin exam: Present: dry, intact Internal Medicine: Result - Labs CBC & Chem 7: 10/21/16 06:05 10/22/16 09:11 - ABG Interpretation ABG results: PT/INR, D-dimer PT 11.6 Seconds (9.4-12.1) 10/21/16 06:05 Consult Discharge Plan - Plan Referrals: Corina Kumari CNP [Primary Care Provider] -
[2016-10-23] MEDS: Albuterol 2.5 MG/3 ML NEBULIZER IH SCH ×3 (04:51→16:02)
[2016-10-23] MEDS: *HR* Enoxaparin 40 MG/0.4 ML SYRINGE SQ SCH (06:23)
[2016-10-23] MEDS: Insulin LISPRO 300 UNITS/3 ML VIAL SQ SCH ×3 (08:54→12:20)
[2016-10-23] MEDS: predniSONE 20 MG TABLET PO SCH (08:55)
[2016-10-23] MEDS: Cholecalciferol (D-3) 1,000 UNIT TABLET PO SCH (08:56)
[2016-10-23] MEDS: Furosemide 40 MG TABLET PO SCH (08:56)
[2016-10-23] MEDS: Isosorbide MONOnitrate (24 HR) 30 MG TAB.ER.24H PO SCH (08:56)
[2016-10-23] MEDS: Aspirin 81 MG TAB.CHEW PO SCH (08:56)
[2016-10-23] MEDS: Insulin DETEMIR 100 UNIT/ML X5UNITS SQ SCH (09:01)
[2016-10-23] MEDS ORDERED: levoFLOXacin 500 MG TABLET PO SCH (09:30)
[2016-10-23] MEDS: Budesonide/Formoterol 160/4.5 MDI IH SCH (11:03)
[2016-10-23 11:38] VITALS: BP 104/51
--- NOTE | 2016-10-23 14:11 | Physician Discharge Referral ---
Home Health/Hosp Referral Info Transfer to: Home Health Attending Provider: Kaleb Rodriguez Provider in Charge Post Discharge: PCP - Diagnosis (1) Acute bronchitis Priority: Primary Status: Acute (2) COPD exacerbation Priority: Primary Status: Acute (3) CKD (chronic kidney disease) stage 3, GFR 30-59 ml/min Priority: Secondary Status: Chronic (4) Chronic diastolic CHF (congestive heart failure) Priority: Secondary Status: Chronic (5) Diabetes Priority: Secondary Status: Chronic (6) History of pulmonary embolus (PE) Priority: Secondary Status: Resolved (7) Coronary artery disease Priority: Secondary Status: Chronic (8) Obesity Priority: Secondary Status: Chronic (9) Acute respiratory failure with hypoxia Priority: Primary Status: Acute - Respiratory Orders Oxygen / L per min (2L /minute, target O2Sat of 92%) Smoking Cessation: Smoking cessation has been advised. For more information, call the [place] Tobacco Quit Line at 9-230-FPBF-NOW. - Diet/Nutrition Diet/Nutrition Orders: Renal, Cardiac, No Concentrated Sweets - Activity Activity Orders: Up ad kimberly - Services Needed Following services are medically necessary services: Home Health Aide - Transfer Medications Prescriptions: Levofloxacin [Levaquin] 750 mg PO Q48H #4 tablet PredniSONE 40 mg PO DAILY #6 tablet Home Medications: Allopurinol [Zyloprim] 100 mg PO DAILY 05/13/15 [History] Aspirin 81 mg PO DAILY 05/13/15 [History] Cholecalciferol (Vitamin D3) [Vitamin D3] 5,000 mg PO DAILY 05/13/15 [History] Insulin DETEMIR [Levemir] 45 unit SQ BID 05/13/15 [History] Losartan [Cozaar] 25 mg PO DAILY 05/13/15 [History] Pantoprazole [Protonix] 40 mg PO DAILY 05/13/15 [History] Sertraline HCl [Zoloft] 25 mg PO HS 05/13/15 [History] Simvastatin [Zocor] 20 mg PO HS 05/13/15 [History] Vitamin E 400 unit PO DAILY 05/13/15 [History] Nitroglycerin 0.4 mg SL Q5MIN PRN #10 tab.subl 05/14/15 [Rx] Levothyroxine [Synthroid] 50 mcg PO DAILY 11/29/15 [History] Ranitidine HCl [Zantac] 150 mg PO HS 12/12/15 [History] Insulin LISPRO [Humalog] 20 unit SQ QAM 04/27/16 [History] Insulin LISPRO [Humalog] 25 unit SQ 1200 04/27/16 [History] Insulin LISPRO [Humalog] 30 unit SQ QPM 04/27/16 [History] Isosorbide MONOnitrate (24 HR) [Imdur] 30 mg PO DAILY #30 tab.er.24h 04/29/16 [ Rx] Metoprolol Tartrate [Lopressor] 50 mg PO BID #60 tablet 04/29/16 [Rx] Albuterol Sulfate [Albuterol Inhaler] 2 puff IH Q4H PRN 30 Days 10/21/16 [Rx] Budesonide/Formoterol 160/4.5 [Symbicort 160/4.5] 2 puff IH BIDR #1 inhaler 03/30 [Rx] Furosemide [Lasix] 40 mg PO DAILY 10/21/16 [History] Levofloxacin [Levaquin] 750 mg PO Q48H 7 Days 10/21/16 [Rx] PredniSONE 40 mg PO DAILY #7 tablet 10/21/16 [Rx] Levofloxacin [Levaquin] 750 mg PO Q48H #4 tablet 10/23/16 [Rx] PredniSONE 40 mg PO DAILY #6 tablet 10/23/16 [Rx] Allergies/Adverse Reactions: Allergies morphine Allergy (Verified 10/21/16 05:41) Rash Certification: Further, I certify that my clinical findings support that this patient is homebound (i.e. absences from home require considerable and taxing effort and are for medical reasons or faith services or infrequently or short duration when for other reasons) because: Homebound Reason: Severity of cardiac or pulmonary status limits activity tolerance Attestation: My signature below is to certify that this patient is under my care and that I, or nurse practitioner, or a physician's ophthalmology assistant working with me, has a face-to -face encounter with this patient.
--- NOTE | 2016-10-23 14:16 | Discharge Summary ---
Date of Encounter: 10/23/16 Time of Encounter: 10:45 - Discharge Diagnosis (1) Acute bronchitis Priority: Primary Status: Acute Qualifiers: Bronchitis organism: unspecified organism Qualified Code(s): J20.9 - Acute bronchitis, unspecified (2) COPD exacerbation Priority: Primary Status: Acute (3) CKD (chronic kidney disease) stage 3, GFR 30-59 ml/min Priority: Secondary Status: Chronic (4) Chronic diastolic CHF (congestive heart failure) Priority: Secondary Status: Chronic (5) Diabetes Priority: Secondary Status: Chronic Qualifiers: Diabetes mellitus type: type 2 Diabetes mellitus complication status: with kidney complications Diabetes mellitus complication detail: with chronic kidney disease Chronic kidney disease stage: stage 3 (moderate) Qualified Code(s): E11.22 - Type 2 diabetes mellitus with diabetic chronic kidney disease ; N18.3 - Chronic kidney disease, stage 3 (moderate); Z79.4 - nursing home (current ) use of insulin (6) History of pulmonary embolus (PE) Priority: Secondary Status: Resolved (7) Coronary artery disease Priority: Secondary Status: Chronic Qualifiers: Coronary Disease-Associated Artery/Lesion type: [place] artery Associated angina: without angina Qualified Code(s): I25.10 - Atherosclerotic heart disease of [place] coronary artery without angina pectoris (8) Obesity Priority: Secondary Status: Chronic Qualifiers: Obesity type: unspecified obesity type Obesity severity: morbid Qualified Code(s): E66.01 - Morbid (severe) obesity due to excess calories (9) Acute respiratory failure with hypoxia Priority: Primary Status: Acute - Discharge Medications Prescriptions: Levofloxacin [Levaquin] 750 mg PO Q48H #4 tablet PredniSONE 40 mg PO DAILY #6 tablet Home Medications: Allopurinol [Zyloprim] 100 mg PO DAILY 05/13/15 [History] Aspirin 81 mg PO DAILY 05/13/15 [History] Cholecalciferol (Vitamin D3) [Vitamin D3] 5,000 mg PO DAILY 05/13/15 [History] Insulin DETEMIR [Levemir] 45 unit SQ BID 05/13/15 [History] Losartan [Cozaar] 25 mg PO DAILY 05/13/15 [History] Pantoprazole [Protonix] 40 mg PO DAILY 05/13/15 [History] Sertraline HCl [Zoloft] 25 mg PO HS 05/13/15 [History] Simvastatin [Zocor] 20 mg PO HS 05/13/15 [History] Vitamin E 400 unit PO DAILY 05/13/15 [History] Nitroglycerin 0.4 mg SL Q5MIN PRN #10 tab.subl 05/14/15 [Rx] Levothyroxine [Synthroid] 50 mcg PO DAILY 11/29/15 [History] Ranitidine HCl [Zantac] 150 mg PO HS 12/12/15 [History] Insulin LISPRO [Humalog] 20 unit SQ QAM 04/27/16 [History] Insulin LISPRO [Humalog] 25 unit SQ 1200 04/27/16 [History] Insulin LISPRO [Humalog] 30 unit SQ QPM 04/27/16 [History] Isosorbide MONOnitrate (24 HR) [Imdur] 30 mg PO DAILY #30 tab.er.24h 04/29/16 [ Rx] Metoprolol Tartrate [Lopressor] 50 mg PO BID #60 tablet 04/29/16 [Rx] Albuterol Sulfate [Albuterol Inhaler] 2 puff IH Q4H PRN 30 Days 10/21/16 [Rx] Budesonide/Formoterol 160/4.5 [Symbicort 160/4.5] 2 puff IH BIDR #1 inhaler 03/30 [Rx] Furosemide [Lasix] 40 mg PO DAILY 10/21/16 [History] Levofloxacin [Levaquin] 750 mg PO Q48H 7 Days 10/21/16 [Rx] PredniSONE 40 mg PO DAILY #7 tablet 10/21/16 [Rx] Levofloxacin [Levaquin] 750 mg PO Q48H #4 tablet 10/23/16 [Rx] PredniSONE 40 mg PO DAILY #6 tablet 10/23/16 [Rx] Allergies/Adverse Reactions: Allergies morphine Allergy (Verified 10/21/16 05:41) Rash Date of admission: 10/22/16 14:11 Primary care physician: Corina Kumari CNP Discharging clinician: Kaleb Rodriguez Anticipated date of discharge: 10/23/16 - Patient Status Disposition: Home Health Service Condition: Good Functional capacity at discharge: independent ambulation Overall status at discharge: patient is back to baseline - Discharge Instructions Follow Up With: Lio Gold CNP [Advanced Practice Nurse] - 10/28/16 1:30 pm - Diet and Activity Activity: wear oxygen at all times Diet: diabetic diet, low fat, low cholesterol, low salt diet Interval History: 85 Y/O M, independent living PMH of HTN, HLD, DMII, CADs/p PCI, PE s/p IVC filter, Chronic diastolic CHF, CKD III, COPD He was admitted for management of acute hypoxic respiratory failure secondary to acute bronchitis and COPDE Hospital course: Mr. Colon is a 85 year old male with a PMH of HTN, HLD, CKD III, COPD, CAD s/p PCI, PE with IVC filter, Chronic diastolic CHF He presented with malaise, SOB and cough of 3-4 days duration. No fever, no sore-throat, no hemoptysis, hematemesis, or hematochezia. No urinary or new-onset neurological symptoms. He up-to-date with influenza and pneumococcal vaccination. He is a non-smoker. He has not been compliant with use of Symbicort because it is his impression that it is not effective. Work up on admission showed no leukocytosis, Chemistry at baseline. CRP=19. Chest xray: Bibasilar atelectasis, fibrosis. No pulmonary vascular congestion CT chest of 05/2016: emphysema, fibrosis, bibasiilar atelectasis EKG: NSR @ 80 bpm, EVIDENCE OF PRIOR INFERIOR WALL INFARCT, NO ACUTE FINDINGS. He was admitted for Acute hypoxic respiratory failure, acute bronchitis and COPD exacerbation He was managed with Prednisone, nebs and antibiotics He is seen at bedside this morning, stable in no form of distress His chest exam is clear He has remained dependent on oxygen especially on exertion Scripts for Home O2, Prednsione and Levofloxacin has been filled He was independent living but has requested home health, referral has been made. He is encouraged to follow up with PCP, compliance with home meds reinforced - Time Spent with Patient Total time spent providing and/or coordinating discharge services: - Constitutional Vitals: Temp Pulse Resp BP Pulse Ox 97.4 F L 76 18 104/51 93 L 10/23/16 11:33 10/23/16 11:33 10/23/16 11:33 10/23/16 11:33 10/23/16 11:33 General appearance: Present: A&O X 3, pleasant, no acute distress, obese - Head Head exam: Present: atraumatic, normocephalic - Eye Eye exam: Present: PERRL, conjuntiva pink, sclera anicteric Pupils: Present: PERRL - Neck Neck exam general surgery: Present: supple, trachea midline. Absent: lymphadenopathy - Respiratory Respiratory exam: Present: CTAB. Absent: accessory muscle use, rales, rhonchi, wheezes - Cardiovascular Cardiovascular exam: Present: RRR, +S1, +S2. Absent: diastolic murmur, gallop, rubs, systolic murmur - GI/Abdominal GI/Abdominal exam: Present: normal bowel sounds, soft, no peritoneal signs. Absent: distended, tenderness - Extremities Exam Extremities exam: Present: warm, radial pulses palpable and symetrical. Absent : calf tenderness, cyanotic, pedal edema - Neurological Exam Neurological exam: Present: CN II-XII intact, oriented X3, no focal deficits. Absent: pronater drift, facial droop, speech deficit - Skin Skin exam: Present: dry
== END 2016-10-23 16:12 | disposition home health service (06) | DRG 190 ==
LOC: EMEROO 05:35 → 3BNU 05:35
PROVIDERS: ADMIT Family Medicine; ATTEND Nurse Practitioner Family

== ENCOUNTER 2016-12-11 19:20 | Inpatient (IN) ==
[2016-12-11] MEDS ORDERED: 0.9 % Sodium Chloride 1,000 ML IVC ONE (20:11)
--- NOTE | 2016-12-11 21:06 | Emergency Department Note ---
Disposition Clinical Impression: Ileus, Acute kidney injury Leukocytosis Qualifiers: Leukocytosis type: unspecified Qualified Code(s): D72.829 - Elevated white blood cell count, unspecified Disposition: Admitted As Inpatient Condition: Fair Nausea/Vomiting/Diarrhea HPI - General Chief complaint: ED Nausea/Vomiting/Diarrhea Stated complaint: Vomiting, diarrhea, weak Time Seen by Provider: 12/11/16 19:27 Source: patient, family Mode of arrival: private vehicle Limitations: no limitations Nursing Notes Reviewed: Yes Vital Signs Reviewed: Yes - History of Present Illness HPI Narrative: 86-year-old male history of diabetes, hypertension, CAD status post stent, [place], COPD who presents to the ER with a chief complaint of nausea vomiting diarrhea. Patient states he started having vomiting and diarrhea this morning around 10 AM. He reports roughly 4 episodes of vomiting. Nonbloody and nonbilious. He also reports some pain around his belly button. He denies any chest pain, fevers, shortness of breath. Family at bedside reports that he was admitted last month due to his breathing. Reports he went home on oxygen but his sats improved at home so he has not needed to wear it. No other complaints. Pt Subjective Complaint: nausea, vomiting, diarrhea, abdominal pain Onset (ago): hour(s) Description of emesis: watery Description of Diarrhea: water Associated Abdominal Pain: Yes If pain, Location of pain: periumbilical Severity: mild Quality: aching Consistency: intermittent Improves with: nothing Worsens with: nonthing Associated symptoms: Reports: nausea/vomiting, weakness. Denies: chest pain, cough, fever/chills - Related Data Home Medications Medication Instructions Recorded Confirmed Allopurinol [Zyloprim] 100 mg PO DAILY 05/13/15 12/11/16 Aspirin 81 mg PO DAILY 05/13/15 12/11/16 Cholecalciferol (Vitamin D3) 5,000 mg PO DAILY 05/13/15 12/11/16 [Vitamin D3] Insulin DETEMIR [Levemir] 45 unit SQ BID 05/13/15 12/11/16 Losartan [Cozaar] 25 mg PO DAILY 05/13/15 12/11/16 Pantoprazole [Protonix] 40 mg PO DAILY 05/13/15 12/11/16 Sertraline HCl [Zoloft] 25 mg PO HS 05/13/15 12/11/16 Simvastatin [Zocor] 20 mg PO HS 05/13/15 12/11/16 Vitamin E 400 unit PO DAILY 05/13/15 12/11/16 Levothyroxine [Synthroid] 50 mcg PO DAILY 11/29/15 12/11/16 Ranitidine HCl [Zantac] 150 mg PO HS 12/12/15 12/11/16 Insulin LISPRO [Humalog] 20 unit SQ 1200 04/27/16 12/11/16 Insulin LISPRO [Humalog] 20 unit SQ QAM 04/27/16 12/11/16 Insulin LISPRO [Humalog] 25 unit SQ QPM 04/27/16 12/11/16 Furosemide [Lasix] 40 mg PO DAILY PRN 10/21/16 12/11/16 Oxygen 2 l NS AD 12/11/16 12/11/16 Previous Rx's Medication Instructions Recorded Nitroglycerin 0.4 mg SL Q5MIN PRN #10 tab.subl 05/14/15 Isosorbide MONOnitrate (24 HR) 30 mg PO DAILY #30 tab.er.24h 04/29/16 [Imdur] Metoprolol Tartrate [Lopressor] 50 mg PO BID #60 tablet 04/29/16 Albuterol Sulfate [Albuterol 2 puff IH Q4H PRN 30 Days 10/21/16 Inhaler] Budesonide/Formoterol 160/4.5 2 puff IH BIDR #1 inhaler 10/21/16 [Symbicort 160/4.5] Allergies Allergy/AdvReac Type Severity Reaction Status Date / Time morphine Allergy Rash Verified 10/21/16 05:41 All systems ED: reviewed and negative except as stated. Constitutional: Denies: fever Cardiovascular: Denies: chest pain Respiratory: Denies: cough, dyspnea Gastrointestinal: Reports: abdominal pain, nausea, vomiting, diarrhea. Denies: constipation Genitourinary: Denies: dysuria Past Medical History - Past Medical History Attestation: Yes The following information was validated with the patient. Source: patient Medical history: Reports: CHF, COPD, coronary artery disease, DVT, diabetes, hyperlipidemia, hypertension, myocardial infarction, pulmonary embolus, renal disease Surgical history: Reports: cholecystectomy, herniorrhaphy, other, IVC Filter Psychiatric history: Reports: no psych history - Social History Smoking Status: Former smoker Smokeless Tobacco Status: No Alcohol use: Reports: none Drug use: Reports: none Physical Exam - General Limitations: no limitations General appearance: alert, in no apparent distress - Head Head exam: atraumatic, normocephalic, normal inspection - Eye Eye exam: Present: normal appearance, EOMI - ENT ENT exam: normal exam - Neck Neck exam: Present: normal inspection - Chest Chest inspection: Present: normal inspection, symmetric chest wall rise - Respiratory Respiratory exam: Present: normal lung sounds bilaterally - Cardiovascular Cardiovascular exam: Present: regular rate, normal rhythm, normal heart sounds - Abdominal Exam Abdominal exam: Present: soft, tenderness (Periumbilical tenderness to palpation.), distention. Absent: rigidity - Rectal Exam Rectal exam: Present: normal inspection, normal rectal tone, heme (-) stool - Extremities Exam Extremities exam: Present: normal inspection, full ROM - Expanded Upper Extremity Exam Shoulder exam: Present: normal inspection, full ROM Arm exam: Present: normal inspection, full ROM Elbow exam: Present: normal inspection, full ROM Forearm/Wrist exam: Present: normal inspection, full ROM Hand exam: Present: normal inspection, full ROM - Expanded Lower Extremity Exam Hip/Pelvis exam: Present: normal inspection, full ROM Upper leg exam: Present: normal inspection, full ROM Knee exam: Present: normal inspection, full ROM Lower leg exam: Present: normal inspection, full ROM Ankle exam: Present: normal inspection, full ROM Foot/toe exam: Present: normal inspection, full ROM - Neurological Exam Neurological exam: Present: alert - Psychiatric Psychiatric exam: Present: normal affect, normal mood - Skin Skin exam: Present: warm, dry, intact, normal color Course Course Narrative: Patient seen and examined. Vital signs reviewed. We will get a CT scan of the abdomen and pelvis. Also obtain an EKG chest x-ray labs and urinalysis. Disposition pending. - Reevaluation(s) Reevaluation #1: Discussed results of imaging and lab work with the patient and family. - Consultations Consultation #1: I spoke with the on-call surgeon Dr. Woody. Discussed the patient's history, exam, CT findings and labs. He reports that ileus, just like this and since the patient is having diarrhea he would not place an NG tube. Patient can be treated symptomatically and consult surgery as needed. Vital Signs Temperature 97.5 F L 12/11/16 19:23 Pulse Rate 95 12/11/16 19:23 Respiratory Rate 22 12/11/16 19:23 Blood Pressure 159/84 12/11/16 19:23 O2 Sat by Pulse Oximetry 93 L 12/11/16 19:23 Temperature 97.5 F L 12/14/16 03:03 Pulse Rate 58 12/14/16 03:03 Respiratory Rate 20 12/14/16 03:03 Blood Pressure 151/73 12/14/16 03:03 O2 Sat by Pulse Oximetry 95 12/14/16 03:03 Oxygen Delivery Oxygen Delivery Room Air Nausea/Vomiting/Diarrhea - MDM Narrative Medical decision making narrative: 86-year-old male presents to the ER due to nausea vomiting diarrhea and abdominal pain. CT scan here shows a developing small bowel traction as read by radiology. Leukocytosis and acute kidney injury. Case discussed with surgery who report to treat symptomatically no need for NG tube since he is having diarrhea and to consult them as needed. Patient given IV fluids and anti -emetics here. Patient to be admitted to the hospitalist service. - Lab Data Lab results reviewed: Yes I reviewed the patient's lab results. Result diagrams: 12/13/16 05:28 12/13/16 05:28 Lab Results 12/11/16 12/11/16 12/11/16 Range/Units 19:45 20:55 20:55 WBC 16.3 H (4.3-11.1) K/mcL RBC 5.27 (4.19-5.50) M/mcL Hgb 12.6 L (12.9-16.9) g/dL Hct 41.4 (37.5-50.1) % MCV 78.6 L (83.0-100.0) fL MCH 23.9 L (28.0-33.3) pg MCHC 30.4 L (31.6-35.5) g/dL RDW 18.6 H (11.5-14.5) % Plt Count 361 (140-400) K/mcL MPV 10.9 (9.4-12.4) fL Immature Gran % 0.4 (0-4) % Seg Neutrophils % 83.2 % Lymphocytes % 9.3 % Monocytes % 6.1 % Eosinophils % 0.4 % Basophils % 0.6 % Neutrophils # 13.6 H (1.6-8.9) K/mcL Lymphocytes # 1.5 (0.6-4.6) K/mcL Monocytes # 1.0 (0.0-1.3) K/mcL Eosinophils # 0.1 (0.0-0.6) K/mcL Basophils # 0.1 (0.0-0.2) K/mcL Sodium 139 (136-145) mEq/L Potassium 4.4 (3.5-4.5) mEq/L Chloride 103 (98-109) mEq/L Carbon Dioxide 22 (19-29) mEq/L BUN 31 H (8-26) mg/dL Creatinine 2.85 H (0.72-1.25) mg/dL Est GFR ( Amer) 26 L (> 60) Est GFR (Non-Af Amer) 21 L (> 60) BUN/Creatinine Ratio 11 (6-26) Glucose 225 H (70-99) mg/dL POC Glucose 209 H (58-89) Calculated Osmolality 302 H (280-300) Lactic Acid (0.5-2.2) mmol/L Calcium 9.7 (8.6-10.8) mg/dL Total Bilirubin 0.9 (0.2-1.2) mg/dL AST 24 (5-34) Units/L ALT 14 (0-55) Units/L Alkaline Phosphatase 73 (38-126) Units/L Troponin I (0-0.03) ng/mL B-Natriuretic Peptide (0-100) pg/mL Serum Total Protein 8.0 (6.0-8.3) g/dL Albumin 3.9 (3.5-5.0) g/dL Globulin 4.1 H (2.4-3.5) g/dL Albumin/Globulin Ratio 1.0 L (1.1-2.2) Lipase 5 L (8-78) Units/L Urine Color (Yellow) Urine Clarity (Clear) Urine pH (5.0-8.0) pH Units Ur Specific [place] (1.010-1.025) Urine Protein (Neg-Trace) mg/dL Urine Glucose (UA) (Normal) mg/dL Urine Ketones (Negative) mg/dL Urine Blood (Negative) Urine Nitrite (Negative) Urine Bilirubin (Negative) Urine Urobilinogen (Normal) mg/dL Ur Leukocyte Esterase (Negative) Urine Microscopic RBC (0-3) per hpf Urine Microscopic WBC (0-3) per hpf Ur Squamous Epith Cells (None-Few) per lpf Urine Bacteria (None-Few) per hpf Ur Culture Indicated? (NO) 12/11/16 12/11/16 12/12/16 Range/Units 20:55 20:55 02:12 WBC (4.3-11.1) K/mcL RBC (4.19-5.50) M/mcL Hgb (12.9-16.9) g/dL Hct (37.5-50.1) % MCV (83.0-100.0) fL MCH (28.0-33.3) pg MCHC (31.6-35.5) g/dL RDW (11.5-14.5) % Plt Count (140-400) K/mcL MPV (9.4-12.4) fL Immature Gran % (0-4) % Seg Neutrophils % % Lymphocytes % % Monocytes % % Eosinophils % % Basophils % % Neutrophils # (1.6-8.9) K/mcL Lymphocytes # (0.6-4.6) K/mcL Monocytes # (0.0-1.3) K/mcL Eosinophils # (0.0-0.6) K/mcL Basophils # (0.0-0.2) K/mcL Sodium (136-145) mEq/L Potassium (3.5-4.5) mEq/L Chloride (98-109) mEq/L Carbon Dioxide (19-29) mEq/L BUN (8-26) mg/dL Creatinine (0.72-1.25) mg/dL Est GFR ( Amer) (> 60) Est GFR (Non-Af Amer) (> 60) BUN/Creatinine Ratio (6-26) Glucose (70-99) mg/dL POC Glucose (58-89) Calculated Osmolality (280-300) Lactic Acid (0.5-2.2) mmol/L Calcium (8.6-10.8) mg/dL Total Bilirubin (0.2-1.2) mg/dL AST (5-34) Units/L ALT (0-55) Units/L Alkaline Phosphatase (38-126) Units/L Troponin I 0.01 (0-0.03) ng/mL B-Natriuretic Peptide 39 (0-100) pg/mL Serum Total Protein (6.0-8.3) g/dL Albumin (3.5-5.0) g/dL Globulin (2.4-3.5) g/dL Albumin/Globulin Ratio (1.1-2.2) Lipase (8-78) Units/L Urine Color Dark Yellow (Yellow) Urine Clarity Clear (Clear) Urine pH 5.5 (5.0-8.0) pH Units Ur Specific [place] 1.025 (1.010-1.025) Urine Protein 30 H (Neg-Trace) mg/dL Urine Glucose (UA) Normal (Normal) mg/dL Urine Ketones Negative (Negative) mg/dL Urine Blood Negative (Negative) Urine Nitrite Negative (Negative) Urine Bilirubin Small H (Negative) Urine Urobilinogen Normal (Normal) mg/dL Ur Leukocyte Esterase Negative (Negative) Urine Microscopic RBC 0-3 (0-3) per hpf Urine Microscopic WBC 3-5 H (0-3) per hpf Ur Squamous Epith Cells Many H (None-Few) per lpf Urine Bacteria None Seen (None-Few) per hpf Ur Culture Indicated? NO (NO) 12/12/16 Range/Units 04:11 WBC (4.3-11.1) K/mcL RBC (4.19-5.50) M/mcL Hgb (12.9-16.9) g/dL Hct (37.5-50.1) % MCV (83.0-100.0) fL MCH (28.0-33.3) pg MCHC (31.6-35.5) g/dL RDW (11.5-14.5) % Plt Count (140-400) K/mcL MPV (9.4-12.4) fL Immature Gran % (0-4) % Seg Neutrophils % % Lymphocytes % % Monocytes % % Eosinophils % % Basophils % % Neutrophils # (1.6-8.9) K/mcL Lymphocytes # (0.6-4.6) K/mcL Monocytes # (0.0-1.3) K/mcL Eosinophils # (0.0-0.6) K/mcL Basophils # (0.0-0.2) K/mcL Sodium (136-145) mEq/L Potassium (3.5-4.5) mEq/L Chloride (98-109) mEq/L Carbon Dioxide (19-29) mEq/L BUN (8-26) mg/dL Creatinine (0.72-1.25) mg/dL Est GFR ( Amer) (> 60) Est GFR (Non-Af Amer) (> 60) BUN/Creatinine Ratio (6-26) Glucose (70-99) mg/dL POC Glucose (58-89) Calculated Osmolality (280-300) Lactic Acid 1.8 (0.5-2.2) mmol/L Calcium (8.6-10.8) mg/dL Total Bilirubin (0.2-1.2) mg/dL AST (5-34) Units/L ALT (0-55) Units/L Alkaline Phosphatase (38-126) Units/L Troponin I (0-0.03) ng/mL B-Natriuretic Peptide (0-100) pg/mL Serum Total Protein (6.0-8.3) g/dL Albumin (3.5-5.0) g/dL Globulin (2.4-3.5) g/dL Albumin/Globulin Ratio (1.1-2.2) Lipase (8-78) Units/L Urine Color (Yellow) Urine Clarity (Clear) Urine pH (5.0-8.0) pH Units Ur Specific [place] (1.010-1.025) Urine Protein (Neg-Trace) mg/dL Urine Glucose (UA) (Normal) mg/dL Urine Ketones (Negative) mg/dL Urine Blood (Negative) Urine Nitrite (Negative) Urine Bilirubin (Negative) Urine Urobilinogen (Normal) mg/dL Ur Leukocyte Esterase (Negative) Urine Microscopic RBC (0-3) per hpf Urine Microscopic WBC (0-3) per hpf Ur Squamous Epith Cells (None-Few) per lpf Urine Bacteria (None-Few) per hpf Ur Culture Indicated? (NO) - Radiology Data Radiology results reviewed: Yes I reviewed the patient's radiology results. Chest X-Ray 12/11/16 20:11 IMPRESSION: No acute process. D/ / Nabil Paulson MD / Nabil Paulson MD Interpreting Provider: Nabil Paulson MD Abdomen/Pelvis CT 12/11/16 21:27 IMPRESSION: 1. Findings are consistent with a developing distal small bowel obstruction, with a transition point noted within the right lower quadrant, though no evidence of pneumatosis, perforation, or free air. 2. Colonic diverticulosis, without diverticulitis. 3. Stable right renal cyst. 4. Stable urinary bladder diverticula. 5. Patient status post cholecystectomy. D/ / 12/11/2016 22:52:10 Ambrosio Herrera MD / Margo Franks Interpreting Provider: Ambrosio Herrera MD - EKG Data EKG attestation: Yes I reviewed and interpreted this EKG. EKG results narrative: EKG demonstrates normal sinus rhythm with rate of 89 bpm. Normal axis. GA interval 191 QRS duration [address] elevations or depressions. No acute ischemic findings.
[2016-12-11 21:07] LABS: Basophils # 0.1 K/mcL (0.0-0.2); Basophils % 0.6 %; Eosinophils # 0.1 K/mcL (0.0-0.6); Eosinophils % 0.4 %; Hematocrit 41.4 % (37.5-50.1); Hemoglobin 12.6 g/dL (12.9-16.9); Immature Granulocytes % 0.4 % (0-4); Lymphocytes # 1.5 K/mcL (0.6-4.6); Lymphocytes % 9.3 %; Mean Corpuscular HGB Conc 30.4 g/dL (31.6-35.5); Mean Corpuscular Hemoglobin 23.9 pg (28.0-33.3); Mean Corpuscular Volume 78.6 fL (83.0-100.0); Mean Platelet Volume 10.9 fL (9.4-12.4); Monocytes % 6.1 %; Neutrophils # 13.6 K/mcL (1.6-8.9); Platelet Count 361 K/mcL (140-400); Red Blood Count 5.27 M/mcL (4.19-5.50); Red Cell Distribution Width 18.6 % (11.5-14.5); Segmented Neutrophils % 83.2 %
[2016-12-11] MEDS ORDERED: Ondansetron 4 MG/2 ML VIAL IVP ONE (21:08)
--- NOTE | 2016-12-11 21:12 | Emergency Department Note ---
START Narrative - START START: For this encounter, I have reviewed the resident, [employer], or PA documentation, treatment plan, and medical decision making; and I have had face to face time with this patient. 86 yo male presents with concerns of n/v/d and abdominal pain for the past 12 hours. emesis was nonbloody, nonbillious. No hematochezia or melena. No fever , cough, CP, SOB. Abdomen appears distended, +suprapubic pain with palpation. Labs reveal acute renal failure. CT of the abdomen and pelvis shows a likely small bowel instruction. Resident spoke with the surgeon regarding the patient' s case and presentation who preferred that the patient be admitted to the hospitalist for further care. Patient is to be admitted to the hospital for further care and evaluation.
[2016-12-11 21:15] LABS: Albumin 3.9 g/dL (3.5-5.0); Bilirubin,Total 0.9 mg/dL (0.2-1.2); Calcium 9.7 mg/dL (8.6-10.8); Globulin 4.1 g/dL (2.4-3.5); Potassium 4.4 mEq/L (3.5-4.5)
[2016-12-12] MEDS ORDERED: 0.9 % Sodium Chloride 1,000 ML IVC ONE ×2 (00:24→02:05)
[2016-12-12] MEDS ORDERED: Piperacillin/Tazobactam 3.375 GM in D5% in Water (Mini-Bag+) 100 ML IVPB ONE (02:08)
[2016-12-12] MEDS ORDERED: MetroNIDAZOLE 500 MG/100 ML 500 MG/100 ML BAG IVPB ONE (02:08)
[2016-12-12 02:22] LABS: Bilirubin,Urine Small (Negative); Blood,Urine Negative (Negative); Clarity,Urine Clear (Clear); Color,Urine Dark Yellow (Yellow); Glucose,Urine (UA) Normal (Normal); Ketones,Urine Negative (Negative); Leukocyte Esterase,Urine Negative (Negative); Nitrite,Urine Negative (Negative); PH,Urine 5.5 pH Units (5.0-8.0); Protein,Urine 30 mg/dL (Neg-Trace); Specific Gravity,Urine 1.025 (1.010-1.025); Urobilinogen,Urine Normal (Normal)
[2016-12-12 02:24] LABS: Bacteria,Urine None Seen per hpf (None-Few); RBC,Urine 0-3 per hpf (0-3); Squamous Epithelial Cell,Urine Many per lpf (None-Few)
--- NOTE | 2016-12-12 02:32 | Emergency Department Note ---
Disposition Clinical Impression: Ileus, Acute kidney injury Leukocytosis Qualifiers: Leukocytosis type: unspecified Qualified Code(s): D72.829 - Elevated white blood cell count, unspecified Disposition: Admitted As Inpatient Condition: Fair Time of Disposition: 02:29 Nausea/Vomiting/Diarrhea HPI - General Chief complaint: ED Nausea/Vomiting/Diarrhea Stated complaint: Vomiting, diarrhea, weak Time Seen by Provider: 12/11/16 19:27 Source: patient, family Mode of arrival: private vehicle Limitations: no limitations - History of Present Illness Pt Subjective Complaint: nausea, vomiting, diarrhea, abdominal pain Description of emesis: watery Associated Abdominal Pain: Yes If pain, Location of pain: periumbilical Severity: mild Improves with: nothing Worsens with: nonthing Associated symptoms: Reports: nausea/vomiting, weakness. Denies: chest pain, cough, fever/chills - Related Data Home Medications Medication Instructions Recorded Confirmed Allopurinol [Zyloprim] 100 mg PO DAILY 05/13/15 12/11/16 Aspirin 81 mg PO DAILY 05/13/15 12/11/16 Cholecalciferol (Vitamin D3) 5,000 mg PO DAILY 05/13/15 12/11/16 [Vitamin D3] Insulin DETEMIR [Levemir] 45 unit SQ BID 05/13/15 12/11/16 Losartan [Cozaar] 25 mg PO DAILY 05/13/15 12/11/16 Pantoprazole [Protonix] 40 mg PO DAILY 05/13/15 12/11/16 Sertraline HCl [Zoloft] 25 mg PO HS 05/13/15 12/11/16 Simvastatin [Zocor] 20 mg PO HS 05/13/15 12/11/16 Vitamin E 400 unit PO DAILY 05/13/15 12/11/16 Levothyroxine [Synthroid] 50 mcg PO DAILY 11/29/15 12/11/16 Ranitidine HCl [Zantac] 150 mg PO HS 12/12/15 12/11/16 Insulin LISPRO [Humalog] 20 unit SQ 1200 04/27/16 12/11/16 Insulin LISPRO [Humalog] 20 unit SQ QAM 04/27/16 12/11/16 Insulin LISPRO [Humalog] 25 unit SQ QPM 04/27/16 12/11/16 Furosemide [Lasix] 40 mg PO DAILY PRN 10/21/16 12/11/16 Oxygen 2 l NS AD 12/11/16 12/11/16 Previous Rx's Medication Instructions Recorded Nitroglycerin 0.4 mg SL Q5MIN PRN #10 tab.subl 05/14/15 Isosorbide MONOnitrate (24 HR) 30 mg PO DAILY #30 tab.er.24h 04/29/16 [Imdur] Metoprolol Tartrate [Lopressor] 50 mg PO BID #60 tablet 04/29/16 Albuterol Sulfate [Albuterol 2 puff IH Q4H PRN 30 Days 10/21/16 Inhaler] Budesonide/Formoterol 160/4.5 2 puff IH BIDR #1 inhaler 10/21/16 [Symbicort 160/4.5] Allergies Allergy/AdvReac Type Severity Reaction Status Date / Time morphine Allergy Rash Verified 10/21/16 05:41 Constitutional: Denies: fever Cardiovascular: Denies: chest pain Respiratory: Denies: cough, dyspnea Gastrointestinal: Reports: abdominal pain, nausea, vomiting, diarrhea. Denies: constipation Genitourinary: Denies: dysuria Past Medical History - Past Medical History Medical history: Reports: CHF, COPD, coronary artery disease, DVT, diabetes, hyperlipidemia, hypertension, myocardial infarction, pulmonary embolus, renal disease Surgical history: Reports: cholecystectomy, herniorrhaphy, other, IVC Filter Psychiatric history: Reports: no psych history - Social History Smoking Status: Former smoker Smokeless Tobacco Status: No Alcohol use: Reports: none Drug use: Reports: none Physical Exam - General Limitations: no limitations General appearance: alert, in no apparent distress Course Course Narrative: Patient was signed out to me by Dr. Rachel. Patient has had 3 day history of constipation and the nausea vomiting and the little bit of diarrhea today. CT abd/pelvis showed developing small bowel obstruction. They talked with Dr. Woody who stated this was likely an ileus since he was having diarrhea. States patient does not need an NG tube at this time. States to consult as needed. Patient had also signs of acute kidney injury and leukocytosis. Was pending urinalysis. I spoke with hospitalist Dr. Ortiz who recommends we start patient on Zosyn and Flagyl to cover for Clostridium difficile. C. difficile testing was ordered. Urinalysis was done and Capps was placed. Patient has been admitted. Vital Signs Temperature 97.5 F L 12/11/16 19:23 Pulse Rate 95 12/11/16 19:23 Respiratory Rate 22 12/11/16 19:23 Blood Pressure 159/84 12/11/16 19:23 O2 Sat by Pulse Oximetry 93 L 12/11/16 19:23 Temperature 97.5 F L 12/11/16 19:23 Pulse Rate 76 12/12/16 02:03 Respiratory Rate 20 12/12/16 02:03 Blood Pressure 147/78 12/12/16 02:03 O2 Sat by Pulse Oximetry 92 L 12/12/16 02:03 Oxygen Delivery Oxygen Delivery Room Air Nausea/Vomiting/Diarrhea - Medical Records Medical records reviewed: Yes I reviewed the patient's medical records. - Lab Data Lab results reviewed: Yes I reviewed the patient's lab results. Result diagrams: 12/11/16 20:55 12/11/16 20:55 Lab Results 12/11/16 12/11/16 12/11/16 Range/Units 19:45 20:55 20:55 WBC 16.3 H (4.3-11.1) K/mcL RBC 5.27 (4.19-5.50) M/mcL Hgb 12.6 L (12.9-16.9) g/dL Hct 41.4 (37.5-50.1) % MCV 78.6 L (83.0-100.0) fL MCH 23.9 L (28.0-33.3) pg MCHC 30.4 L (31.6-35.5) g/dL RDW 18.6 H (11.5-14.5) % Plt Count 361 (140-400) K/mcL MPV 10.9 (9.4-12.4) fL Immature Gran % 0.4 (0-4) % Seg Neutrophils % 83.2 % Lymphocytes % 9.3 % Monocytes % 6.1 % Eosinophils % 0.4 % Basophils % 0.6 % Neutrophils # 13.6 H (1.6-8.9) K/mcL Lymphocytes # 1.5 (0.6-4.6) K/mcL Monocytes # 1.0 (0.0-1.3) K/mcL Eosinophils # 0.1 (0.0-0.6) K/mcL Basophils # 0.1 (0.0-0.2) K/mcL Sodium 139 (136-145) mEq/L Potassium 4.4 (3.5-4.5) mEq/L Chloride 103 (98-109) mEq/L Carbon Dioxide 22 (19-29) mEq/L BUN 31 H (8-26) mg/dL Creatinine 2.85 H (0.72-1.25) mg/dL Est GFR ( Amer) 26 L (> 60) Est GFR (Non-Af Amer) 21 L (> 60) BUN/Creatinine Ratio 11 (6-26) Glucose 225 H (70-99) mg/dL POC Glucose 209 H (58-89) Calculated Osmolality 302 H (280-300) Calcium 9.7 (8.6-10.8) mg/dL Total Bilirubin 0.9 (0.2-1.2) mg/dL AST 24 (5-34) Units/L ALT 14 (0-55) Units/L Alkaline Phosphatase 73 (38-126) Units/L Troponin I (0-0.03) ng/mL B-Natriuretic Peptide (0-100) pg/mL Serum Total Protein 8.0 (6.0-8.3) g/dL Albumin 3.9 (3.5-5.0) g/dL Globulin 4.1 H (2.4-3.5) g/dL Albumin/Globulin Ratio 1.0 L (1.1-2.2) Lipase 5 L (8-78) Units/L Urine Color (Yellow) Urine Clarity (Clear) Urine pH (5.0-8.0) pH Units Ur Specific [place] (1.010-1.025) Urine Protein (Neg-Trace) mg/dL Urine Glucose (UA) (Normal) mg/dL Urine Ketones (Negative) mg/dL Urine Blood (Negative) Urine Nitrite (Negative) Urine Bilirubin (Negative) Urine Urobilinogen (Normal) mg/dL Ur Leukocyte Esterase (Negative) Urine Microscopic RBC (0-3) per hpf Urine Microscopic WBC (0-3) per hpf Ur Squamous Epith Cells (None-Few) per lpf Urine Bacteria (None-Few) per hpf Ur Culture Indicated? (NO) 12/11/16 12/11/16 12/12/16 Range/Units 20:55 20:55 02:12 WBC (4.3-11.1) K/mcL RBC (4.19-5.50) M/mcL Hgb (12.9-16.9) g/dL Hct (37.5-50.1) % MCV (83.0-100.0) fL MCH (28.0-33.3) pg MCHC (31.6-35.5) g/dL RDW (11.5-14.5) % Plt Count (140-400) K/mcL MPV (9.4-12.4) fL Immature Gran % (0-4) % Seg Neutrophils % % Lymphocytes % % Monocytes % % Eosinophils % % Basophils % % Neutrophils # (1.6-8.9) K/mcL Lymphocytes # (0.6-4.6) K/mcL Monocytes # (0.0-1.3) K/mcL Eosinophils # (0.0-0.6) K/mcL Basophils # (0.0-0.2) K/mcL Sodium (136-145) mEq/L Potassium (3.5-4.5) mEq/L Chloride (98-109) mEq/L Carbon Dioxide (19-29) mEq/L BUN (8-26) mg/dL Creatinine (0.72-1.25) mg/dL Est GFR ( Amer) (> 60) Est GFR (Non-Af Amer) (> 60) BUN/Creatinine Ratio (6-26) Glucose (70-99) mg/dL POC Glucose (58-89) Calculated Osmolality (280-300) Calcium (8.6-10.8) mg/dL Total Bilirubin (0.2-1.2) mg/dL AST (5-34) Units/L ALT (0-55) Units/L Alkaline Phosphatase (38-126) Units/L Troponin I 0.01 (0-0.03) ng/mL B-Natriuretic Peptide 39 (0-100) pg/mL Serum Total Protein (6.0-8.3) g/dL Albumin (3.5-5.0) g/dL Globulin (2.4-3.5) g/dL Albumin/Globulin Ratio (1.1-2.2) Lipase (8-78) Units/L Urine Color Dark Yellow (Yellow) Urine Clarity Clear (Clear) Urine pH 5.5 (5.0-8.0) pH Units Ur Specific [place] 1.025 (1.010-1.025) Urine Protein 30 H (Neg-Trace) mg/dL Urine Glucose (UA) Normal (Normal) mg/dL Urine Ketones Negative (Negative) mg/dL Urine Blood Negative (Negative) Urine Nitrite Negative (Negative) Urine Bilirubin Small H (Negative) Urine Urobilinogen Normal (Normal) mg/dL Ur Leukocyte Esterase Negative (Negative) Urine Microscopic RBC 0-3 (0-3) per hpf Urine Microscopic WBC 3-5 H (0-3) per hpf Ur Squamous Epith Cells Many H (None-Few) per lpf Urine Bacteria None Seen (None-Few) per hpf Ur Culture Indicated? NO (NO) - Radiology Data Radiology results reviewed: Yes I reviewed the patient's radiology results. Chest X-Ray 12/11/16 20:11 IMPRESSION: No acute process. D/ / Nabil Paulson MD / Nabil Paulson MD Interpreting Provider: Nabil Paulson MD Abdomen/Pelvis CT 12/11/16 21:27 IMPRESSION: 1. Findings are consistent with a developing distal small bowel obstruction, with a transition point noted within the right lower quadrant, though no evidence of pneumatosis, perforation, or free air. 2. Colonic diverticulosis, without diverticulitis. 3. Stable right renal cyst. 4. Stable urinary bladder diverticula. 5. Patient status post cholecystectomy. D/ / 12/11/2016 22:52:10 Ambrosio Herrera MD / Margo Franks Interpreting Provider: Ambrosio Herrera MD Attestation Statement - Attestation Attestation: This patient was signed out from Dr. Rachel and Dr. Butler at the end of their shift. They have consulted the hospitalist for admission of the patient however the hospitalist this tied up in ICU with a critical patient and has not answered at the end of their shift. Hospitalist family called back to the ER and Dr. Vasquez discussed the case with the hospitalist, Dr. Ortiz, who accepted admission of the patient. He did request some further orders which were placed by Dr. Vasquez prior to the patient going to the floor.
[2016-12-12] MEDS ORDERED: NON-FORMULARY MEDICATION 1 EACH EACH (Oxygen [Oxygen] 2 L) NS SCH (09:00)
[2016-12-12] MEDS ORDERED: Levofloxacin 750 MG/150 ML 750 MG/150 ML BAG IVPB SCH (09:00)
--- NOTE | 2016-12-12 09:03 | Internal Med History&Physical ---
Date of Encounter: 12/12/16 Time of Encounter: 09:01 Assessment and Plan (1) Gastroenteritis Current visit: Yes Status: Acute Patient presents with vomiting and diarrhea he was not having any pain during my interview and no notable slenderness on exam. His abdomen is nice and soft. I therefore suspect that the presentation is related to gastroenteritis rather than obstruction. CT scan showing evidence of transition points and therefore will consult surgery. Meanwhile he will remain NPO until further surgery evaluation. Patient leukocytosis but no fever. It may be reactive. He does not have any significant pain to raise suspicion for ischemic bowel, however I will check lactic acid. As abdominal exam is benign I do not appreciate any notable tenderness. He was started on Zosyn and Flagyl in the emergency room. I will continue Flagyl. Appreciate further surgery recommendations (2) Diabetes mellitus Current visit: Yes Status: Acute Sliding scale insulin. Qualifiers: Qualified Code(s): E11.9 - Type 2 diabetes mellitus without complications (3) Coronary artery disease Current visit: Yes Status: Acute Continue aspirin and beta blockers. Qualifiers: Qualified Code(s): I25.10 - Atherosclerotic heart disease of [place] coronary artery without angina pectoris Internal Medicine - H&P: HPI Chief complaint: vomiting and diarrhea History of present illness: Mr. Colon is a 86 year old male with multiple medical problems including coronary artery disease status post stenting presents the emergency room yesterday with the main complain or vomiting and diarrhea. For about 12 hours prior to admission patient started having episodes of vomiting and watery diarrhea. He had reported to the emergency room physician that he is complaining of some periumbilical pain. He had prior abdominal surgeries including cholecystectomy however he denies any abdominal pain or tenderness during my interview. No fevers or chills. Abdominal CT scan performed in the emergency room most concerning for bowel obstruction was transition point so is being admitted for further evaluation. No fever or chills. He had a bowel movement this morning. He was recently hospitalized at our facility last month with administration of antibiotics. Past Med Surg Social Fam HX - Past Medical History Medical history: CHF, COPD, coronary artery disease, DVT, diabetes, hyperlipidemia, hypertension, myocardial infarction, pulmonary embolus, renal disease Psychiatric history: anxiety - Past Surgical History Surgical History: cholecystectomy, herniorrhaphy, other, IVC Filter - Social History Smoking Status: Former smoker Smokeless Tobacco Status: No Alcohol use: none Drug use: none - Family History Father Name: Curt Colon Family Member Ethnicity: Non- Living Status: Cause of : pneumonia Hx Family Cardiac Disorders: No Hx Family Respiratory Disorders: No Hx Family Cancer: No Hx Family GI Disorders: No Hx Family Genitourinary Disorders: No Hx Family Endocrine Disorder: No Hx Family Musculoskeletal Disorders: No Hx Family Neuromuscular Disorders: No Hx Family Neurologic Disorders: No Hx Family HEENT Disorders: No Hx Family Autoimmune Disorders: No Hx Family Reproductive Disorders: No Hx Family Psychosocial Disorders: No Hx Family Medical Disorders: No Internal Medicine - H&P: Meds Allopurinol [Zyloprim] 100 mg PO DAILY 05/13/15 [History] Aspirin 81 mg PO DAILY 05/13/15 [History] Cholecalciferol (Vitamin D3) [Vitamin D3] 5,000 mg PO DAILY 05/13/15 [History] Insulin DETEMIR [Levemir] 45 unit SQ BID 05/13/15 [History] Losartan [Cozaar] 25 mg PO DAILY 05/13/15 [History] Pantoprazole [Protonix] 40 mg PO DAILY 05/13/15 [History] Sertraline HCl [Zoloft] 25 mg PO HS 05/13/15 [History] Simvastatin [Zocor] 20 mg PO HS 05/13/15 [History] Vitamin E 400 unit PO DAILY 05/13/15 [History] Nitroglycerin 0.4 mg SL Q5MIN PRN #10 tab.subl 05/14/15 [Rx] Levothyroxine [Synthroid] 50 mcg PO DAILY 11/29/15 [History] Ranitidine HCl [Zantac] 150 mg PO HS 12/12/15 [History] Insulin LISPRO [Humalog] 20 unit SQ 1200 04/27/16 [History] Insulin LISPRO [Humalog] 20 unit SQ QAM 04/27/16 [History] Insulin LISPRO [Humalog] 25 unit SQ QPM 04/27/16 [History] Isosorbide MONOnitrate (24 HR) [Imdur] 30 mg PO DAILY #30 tab.er.24h 04/29/16 [ Rx] Metoprolol Tartrate [Lopressor] 50 mg PO BID #60 tablet 04/29/16 [Rx] Albuterol Sulfate [Albuterol Inhaler] 2 puff IH Q4H PRN 30 Days 10/21/16 [Rx] Budesonide/Formoterol 160/4.5 [Symbicort 160/4.5] 2 puff IH BIDR #1 inhaler 03/30 [Rx] Furosemide [Lasix] 40 mg PO DAILY PRN 10/21/16 [History] Oxygen 2 l NS AD 12/11/16 [History] Allergies morphine Allergy (Verified 10/21/16 05:41) Rash All Systems PM: A 10-system review of systems was performed and is negative for pertinent findings except as documented above in the HPI. Review of systems: 10 point review of systems is negative except for HPI - Constitutional Vitals: Temp Pulse Resp BP Pulse Ox 98.3 F 83 20 159/80 90 L 12/12/16 07:43 12/12/16 07:43 12/12/16 07:43 12/12/16 07:43 12/12/16 07:43 Exam: Gen.: patient is alert oriented not in distress. Cardiac: Normal S1 S2 no additional sounds or murmurs chest: clear to auscultation abdomen soft nontender nondistended bowel sounds present lower extremity: lax calf muscles neuro no focal deficit Internal Med - H&P Results - Labs CBC & Chem 7: 12/11/16 20:55 12/11/16 20:55
--- NOTE | 2016-12-12 09:12 | Electrocardiograph Report ---
[address] [place] [address] Test Date: 2016-12-11 Pat Name: Sierra Isaiah Department: 103 Room: 2A25 Gender: M Web Merchant: ROSITA : 1930 Requested By: Kit Butler Order Number: [id number] Reading MD: Klaus Parrish MD Measurements Intervals [place] Rate: 89 P: 24 WV: 191 QRS: -18 QRSD: 109 T: 44 QT: 399 QTc: 445 Interpretive Statements SINUS RHYTHM LOW QRS VOLTAGE IN PRECORDIAL LEADS Poor R wave progression INFERIOR MYOCARDIAL INFARCTION, PROBABLY OLD Electronically Signed On 12-12-2016 9:11:01 EDT by Klaus Parrish MD
[2016-12-12] MEDS: Isosorbide MONOnitrate (24 HR) 30 MG TAB.ER.24H PO SCH (09:42)
[2016-12-12] MEDS: Aspirin 81 MG TAB.CHEW PO SCH (09:42)
[2016-12-12] MEDS: Pantoprazole 40 MG VIAL IVP SCH (09:42)
[2016-12-12] MEDS ORDERED: Insulin LISPRO 300 UNITS/3 ML VIAL SQ SCH ×2 (12:00→21:00)
--- NOTE | 2016-12-12 14:50 | General Surgery Consult Note ---
<Ruth Martinez Carri - Last Filed: 12/12/16 14:45> Date of Encounter: 12/12/16 Time of Encounter: 14:45 Assessment and Plan (1) Gastroenteritis Current Visit: Yes Status: Acute Patients symptoms are resolving with bowel rest and he feels significantly better Clinically no evidence of a SBO- moving bowel and passing flatus regularly, no nausea/vomiting today Will advance to clear liquids with diabetic modifications May advance to regular (renal,cardiac,diabetic) as tolerated IV fluids- may decrease as tolerates diet Supportive care No surgical intervention indicated at this time Surgery will sign off at this time, thank you for allowing us to participate in the care of this patient. Please call with any further questions/concerns. (2) JAYLON (acute kidney injury) Current Visit: No Status: Resolved IV fluids Reed catheter to SD for strict I&O Avoid nephrotoxic medications Management per medicine team (3) CKD (chronic kidney disease) stage 3, GFR 30-59 ml/min Current Visit: No Status: Chronic (4) Insulin dependent type 2 diabetes mellitus Current Visit: No Status: Chronic Hyperglycemia noted Management per medicine team (5) Obesity Current Visit: No Status: Chronic Qualifiers: Obesity type: unspecified obesity type Obesity severity: morbid Qualified Code(s): E66.01 - Morbid (severe) obesity due to excess calories (6) Coronary artery disease Current Visit: Yes Status: Chronic Qualifiers: Coronary Disease-Associated Artery/Lesion type: [place] artery [place] vs. transplanted heart: [place] heart Associated angina: without angina Qualified Code(s): I25.10 - Atherosclerotic heart disease of [place] coronary artery without angina pectoris History of Present Illness Consult date: 12/12/16 Reason for consult: abdominal pain Requesting physician: Jesse Morfin History of present illness: Mr. Colon is a very pleasant 86 year old male with multiple comorbidities who presented to the ED with a 24 hour history of central abdominal pain with associated nausea/vomiting/diarrhea. He states that his abdominal pain is located in the central abdomen and he denies any radiating factors. Denies any alleviating or aggrevating factors. He has never experienced pain like this in the past. He did have multiple episodes of diarrhea yesterday and one bowel movement this morning. Denies any melena, hematochezia. Admits to multiple episodes of nausea/vomiting without hematemesis or coffee ground emesis. He states that his abdominal pain has significantly improved today. He is passing flatus. He states that his bloating has resolved and he has an appetite today. He admits to chronic kidney disease and has had a decrease in UOP due to dehydration. Denies shortness of breath of chest pains. Denies fevers or chills. His stool is negative for c-diff. We have been asked to see and evaluate the patient for recommendations. Past Med Surg Social Fam HX - Past Medical History Source: patient, old records reviewed Medical history: CHF, COPD, coronary artery disease, DVT, diabetes, hyperlipidemia, hypertension, kidney stones, myocardial infarction, pulmonary embolus, renal disease, other (gout, hearing loss, diverticulosis) Psychiatric history: anxiety - Past Surgical History Surgical History: cholecystectomy, herniorrhaphy (umbilical), IVC Filter, other (Colonoscopy approximately 3 years ago) - Social History Smoking Status: Former smoker Smokeless Tobacco Status: No Alcohol use: none Drug use: none - Family History Father Name: Curt Colon Family Member Ethnicity: Non- Living Status: Cause of : pneumonia Hx Family Cardiac Disorders: No Hx Family Respiratory Disorders: No Hx Family Cancer: No Hx Family GI Disorders: No Hx Family Genitourinary Disorders: No Hx Family Endocrine Disorder: No Hx Family Musculoskeletal Disorders: No Hx Family Neuromuscular Disorders: No Hx Family Neurologic Disorders: No Hx Family HEENT Disorders: No Hx Family Autoimmune Disorders: No Hx Family Reproductive Disorders: No Hx Family Psychosocial Disorders: No Hx Family Medical Disorders: No Medications and Allergies Allopurinol [Zyloprim] 100 mg PO DAILY 05/13/15 [History] Aspirin 81 mg PO DAILY 05/13/15 [History] Cholecalciferol (Vitamin D3) [Vitamin D3] 5,000 mg PO DAILY 05/13/15 [History] Insulin DETEMIR [Levemir] 45 unit SQ BID 05/13/15 [History] Losartan [Cozaar] 25 mg PO DAILY 05/13/15 [History] Pantoprazole [Protonix] 40 mg PO DAILY 05/13/15 [History] Sertraline HCl [Zoloft] 25 mg PO HS 05/13/15 [History] Simvastatin [Zocor] 20 mg PO HS 05/13/15 [History] Vitamin E 400 unit PO DAILY 05/13/15 [History] Nitroglycerin 0.4 mg SL Q5MIN PRN #10 tab.subl 05/14/15 [Rx] Levothyroxine [Synthroid] 50 mcg PO DAILY 11/29/15 [History] Ranitidine HCl [Zantac] 150 mg PO HS 12/12/15 [History] Insulin LISPRO [Humalog] 20 unit SQ 1200 04/27/16 [History] Insulin LISPRO [Humalog] 20 unit SQ QAM 04/27/16 [History] Insulin LISPRO [Humalog] 25 unit SQ QPM 04/27/16 [History] Isosorbide MONOnitrate (24 HR) [Imdur] 30 mg PO DAILY #30 tab.er.24h 04/29/16 [ Rx] Metoprolol Tartrate [Lopressor] 50 mg PO BID #60 tablet 04/29/16 [Rx] Albuterol Sulfate [Albuterol Inhaler] 2 puff IH Q4H PRN 30 Days 10/21/16 [Rx] Budesonide/Formoterol 160/4.5 [Symbicort 160/4.5] 2 puff IH BIDR #1 inhaler 03/30 [Rx] Furosemide [Lasix] 40 mg PO DAILY PRN 10/21/16 [History] Oxygen 2 l NS AD 12/11/16 [History] Allergies morphine Allergy (Verified 10/21/16 05:41) Rash Review of Systems All systems PM: reviewed and no additional remarkable complaints except as stated (in the HPI) All systems PM: A 10-system review of systems was performed and is negative for pertinent findings except as documented above in the HPI. General Surgery Exam Initial Vital Signs Temp Pulse Resp BP Pulse Ox 97.5 F L 95 22 159/84 93 L 12/11/16 19:23 12/11/16 19:23 12/11/16 19:23 12/11/16 19:23 12/11/16 19:23 - General physical appearance well developed, well nourished, no distress, no pain, chronically ill, obese - Eyes PERRL, normal ocular movement - ENT normal mucosa, decreased hearing, atraumatic, normocephalic - Neck trachea midline - Respiratory normal respiratory effort, clear to auscultation - Cardiovascular Cardiovascular exam: Present: RRR, 15, 16 - Abdomen Abdomen general surgery: Present: bowel sounds present, soft, non tender - Genitourinary Present: other (reed catheter to SD with hernandez yellow urin) - Integumentary Integumentary general surgery: Present: warm and dry - Neurologic Present: CN 2-12 grossly intact - Psychiatric Psychiatric general surgery: Present: appropriate, oriented to person, oriented to place, oriented to time, speech is normal Exam Initial Vital Signs Temp Pulse Resp BP Pulse Ox 97.5 F L 95 22 159/84 93 L 12/11/16 19:23 12/11/16 19:23 12/11/16 19:23 12/11/16 19:23 12/11/16 19:23 Results - Labs 12/11/16 20:55 12/11/16 20:55 Abnormal lab results WBC 16.3 K/mcL (4.3-11.1) H 12/11/16 20:55 Hgb 12.6 g/dL (12.9-16.9) L 12/11/16 20:55 MCV 78.6 fL (83.0-100.0) L 12/11/16 20:55 MCH 23.9 pg (28.0-33.3) L 12/11/16 20:55 MCHC 30.4 g/dL (31.6-35.5) L 12/11/16 20:55 RDW 18.6 % (11.5-14.5) H 12/11/16 20:55 Neutrophils # 13.6 K/mcL (1.6-8.9) H 12/11/16 20:55 BUN 31 mg/dL (8-26) H 12/11/16 20:55 Creatinine 2.85 mg/dL (0.72-1.25) H 12/11/16 20:55 Est GFR ( Amer) 26 (> 60) L 12/11/16 20:55 Est GFR (Non-Af Amer) 21 (> 60) L 12/11/16 20:55 Glucose 225 mg/dL (70-99) H 12/11/16 20:55 POC Glucose 209 (58-89) H 12/11/16 19:45 Calculated Osmolality 302 (280-300) H 12/11/16 20:55 Globulin 4.1 g/dL (2.4-3.5) H 12/11/16 20:55 Albumin/Globulin Ratio 1.0 (1.1-2.2) L 12/11/16 20:55 Lipase 5 Units/L (8-78) L 12/11/16 20:55 Urine Protein 30 mg/dL (Neg-Trace) H 12/12/16 02:12 Urine Bilirubin Small (Negative) H 12/12/16 02:12 Urine Microscopic WBC 3-5 per hpf (0-3) H 12/12/16 02:12 Ur Squamous Epith Cells Many per lpf (None-Few) H 12/12/16 02:12 All other labs normal. - Imaging Additional studies: Chest X-Ray 12/11/16 20:11 IMPRESSION: No acute process. D/ / Nabil Paulson MD / Nabil Paulson MD Interpreting Provider: Nabil Paulson MD Abdomen/Pelvis CT 12/11/16 21:27 IMPRESSION: 1. Findings are consistent with a developing distal small bowel obstruction, with a transition point noted within the right lower quadrant, though no evidence of pneumatosis, perforation, or free air. 2. Colonic diverticulosis, without diverticulitis. 3. Stable right renal cyst. 4. Stable urinary bladder diverticula. 5. Patient status post cholecystectomy. D/ / 12/11/2016 22:52:10 Ambrosio Herrera MD / Margo Franks Interpreting Provider: Ambrosio Herrera MD Consult Discharge Plan - Plan Referrals: Lio Gold CNP [Primary Care Provider] - 12/18/16 2:00 pm - Attending Attestation I examined this patient and my medical decision-making was reviewed with the ASH PIT WORKER/PA/Advanced Practice Nurse/Resident Physician. I agree with the documented findings, disposition and treatment plan as described except to the extent set forth below. <Jany Murphy - Last Filed: 12/13/16 14:47> Date of Encounter: 12/13/16 Review of Systems All systems PM: A 10-system review of systems was performed and is negative for pertinent findings except as documented above in the HPI. General Surgery Exam Initial Vital Signs Temp Pulse Resp BP Pulse Ox 97.5 F L 95 22 159/84 93 L 12/11/16 19:23 12/11/16 19:23 12/11/16 19:23 12/11/16 19:23 12/11/16 19:23 Exam Initial Vital Signs Temp Pulse Resp BP Pulse Ox 97.5 F L 95 22 159/84 93 L 12/11/16 19:23 12/11/16 19:23 12/11/16 19:23 12/11/16 19:23 12/11/16 19:23 Results - Labs 12/13/16 05:28 12/13/16 05:28 Abnormal lab results Hgb 10.9 g/dL (12.9-16.9) L D 12/13/16 05:28 Hct 37.3 % (37.5-50.1) L 12/13/16 05:28 MCV 81.1 fL (83.0-100.0) L 12/13/16 05:28 MCH 23.7 pg (28.0-33.3) L 12/13/16 05:28 MCHC 29.2 g/dL (31.6-35.5) L 12/13/16 05:28 RDW 18.8 % (11.5-14.5) H 12/13/16 05:28 BUN 29 mg/dL (8-26) H 12/13/16 05:28 Creatinine 2.22 mg/dL (0.72-1.25) H 12/13/16 05:28 Est GFR ( Amer) 34 (> 60) L 12/13/16 05:28 Est GFR (Non-Af Amer) 28 (> 60) L 12/13/16 05:28 Glucose 161 mg/dL (70-99) H 12/13/16 05:28 POC Glucose 177 (58-89) H 12/12/16 21:55 Calculated Osmolality 301 (280-300) H 12/13/16 05:28 Calcium 8.3 mg/dL (8.6-10.8) L 12/13/16 05:28 C-Reactive Protein 10 mg/L (Less than 5) H 12/13/16 05:28 Globulin 4.1 g/dL (2.4-3.5) H 12/11/16 20:55 Albumin/Globulin Ratio 1.0 (1.1-2.2) L 12/11/16 20:55 Lipase 5 Units/L (8-78) L 12/11/16 20:55 Urine Protein 30 mg/dL (Neg-Trace) H 12/12/16 02:12 Urine Bilirubin Small (Negative) H 12/12/16 02:12 Urine Microscopic WBC 3-5 per hpf (0-3) H 12/12/16 02:12 Ur Squamous Epith Cells Many per lpf (None-Few) H 12/12/16 02:12 Diabetes panel 12/13/16 Range/Units 05:28 Sodium 141 (136-145) mEq/L Potassium 4.0 (3.5-4.5) mEq/L Chloride 109 (98-109) mEq/L Carbon Dioxide 25 (19-29) mEq/L BUN 29 H (8-26) mg/dL Creatinine 2.22 H (0.72-1.25) mg/dL Glucose 161 H (70-99) mg/dL Calcium 8.3 L (8.6-10.8) mg/dL Calcium panel 12/13/16 Range/Units 05:28 Calcium 8.3 L (8.6-10.8) mg/dL Pituitary panel 12/13/16 Range/Units 05:28 Sodium 141 (136-145) mEq/L Potassium 4.0 (3.5-4.5) mEq/L Chloride 109 (98-109) mEq/L Carbon Dioxide 25 (19-29) mEq/L BUN 29 H (8-26) mg/dL Creatinine 2.22 H (0.72-1.25) mg/dL Glucose 161 H (70-99) mg/dL Calcium 8.3 L (8.6-10.8) mg/dL Adrenal panel 12/13/16 Range/Units 05:28 Sodium 141 (136-145) mEq/L Potassium 4.0 (3.5-4.5) mEq/L Chloride 109 (98-109) mEq/L Carbon Dioxide 25 (19-29) mEq/L BUN 29 H (8-26) mg/dL Creatinine 2.22 H (0.72-1.25) mg/dL Glucose 161 H (70-99) mg/dL Calcium 8.3 L (8.6-10.8) mg/dL All other labs normal. - Attending Attestation do not charge patient for consult for me, Katy Martinez saw patient independently
[2016-12-12] MEDS: MetroNIDAZOLE 500 MG/100 ML 500 MG/100 ML BAG IVPB SCH ×2 (15:53→23:37)
[2016-12-12] MEDS: Budesonide/Formoterol 160/4.5 MDI IH SCH ×2 (15:53→20:28)
[2016-12-12] MEDS: *HR* Heparin 5,000 UNIT/ML VIAL SQ SCH ×2 (15:53→21:00)
[2016-12-12] MEDS ORDERED: *HR* Dextrose 50 % in Water (Syg) 50 ML SYRINGE IVP PRN (18:45)
[2016-12-12] MEDS ORDERED: D5% in Water 1,000 ML IVC PRN (18:45)
[2016-12-12] MEDS ORDERED: Dextrose Gel 15 GM PO PRN ×2 (18:45)
[2016-12-13] MEDS: *HR* Heparin 5,000 UNIT/ML VIAL SQ SCH ×3 (05:45→22:38)
[2016-12-13 06:19] LABS: Basophils # 0.1 K/mcL (0.0-0.2); Basophils % 1.1 %; Eosinophils # 0.6 K/mcL (0.0-0.6); Eosinophils % 6.5 %; Hematocrit 37.3 % (37.5-50.1); Immature Granulocytes % 0.6 % (0-4); Lymphocytes # 2.7 K/mcL (0.6-4.6); Lymphocytes % 30.9 %; Mean Corpuscular HGB Conc 29.2 g/dL (31.6-35.5); Mean Corpuscular Hemoglobin 23.7 pg (28.0-33.3); Mean Corpuscular Volume 81.1 fL (83.0-100.0); Mean Platelet Volume 11.6 fL (9.4-12.4); Monocytes # 0.7 K/mcL (0.0-1.3); Monocytes % 7.4 %; Neutrophils # 4.7 K/mcL (1.6-8.9); Platelet Count 295 K/mcL (140-400); Red Cell Distribution Width 18.8 % (11.5-14.5); Segmented Neutrophils % 53.5 %
[2016-12-13 06:20] LABS: Hemoglobin 10.9 g/dL (12.9-16.9)
[2016-12-13 06:36] LABS: Calcium 8.3 mg/dL (8.6-10.8)
[2016-12-13] MEDS ORDERED: *HR* Dextrose 50 % in Water (Syg) 50 ML SYRINGE IVP PRN (07:36)
[2016-12-13] MEDS ORDERED: D5% in Water 1,000 ML IVC PRN (07:36)
[2016-12-13] MEDS ORDERED: Dextrose Gel 15 GM PO PRN ×2 (07:36)
[2016-12-13] MEDS: MetroNIDAZOLE 500 MG/100 ML 500 MG/100 ML BAG IVPB SCH ×3 (08:10→23:29)
[2016-12-13] MEDS: Isosorbide MONOnitrate (24 HR) 30 MG TAB.ER.24H PO SCH (08:10)
[2016-12-13] MEDS: Aspirin 81 MG TAB.CHEW PO SCH (08:10)
[2016-12-13] MEDS: Pantoprazole 40 MG VIAL IVP SCH (08:11)
[2016-12-13] MEDS: Insulin LISPRO 300 UNITS/3 ML VIAL SQ SCH ×3 (08:11→17:21)
[2016-12-13] MEDS: Budesonide/Formoterol 160/4.5 MDI IH SCH ×2 (10:57→20:01)
--- NOTE | 2016-12-13 12:05 | Internal Med Progress Note ---
Date of Encounter: 12/13/16 Time of Encounter: 12:01 - Assessment and plan (1) Gastroenteritis Current Visit: Yes Status: Acute Assessment and plan: moving bowels and feels better with no n/v. was on clears yest. will advance diet to soft today. denies abdominal pain good bowel sounds on exam, will observe if he tolerates diet today. stop IVF. (2) JAYLON (acute kidney injury) Current Visit: No Status: Resolved Assessment and plan: JAYLON on CKD> improving, possible pre renal from n/v/diarrhea (3) CKD (chronic kidney disease) Current Visit: No Status: Chronic Qualifiers: Chronic kidney disease stage: stage 3 (moderate) Qualified Code(s): N18.3 - Chronic kidney disease, stage 3 (moderate) (4) Diabetes Current Visit: No Status: Chronic Qualifiers: Diabetes mellitus type: type 2 Diabetes mellitus complication status: with kidney complications Diabetes mellitus complication detail: with chronic kidney disease Chronic kidney disease stage: stage 3 (moderate) Qualified Code(s): E11.22 - Type 2 diabetes mellitus with diabetic chronic kidney disease ; N18.3 - Chronic kidney disease, stage 3 (moderate); 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 cliniclly better, denies abdominal pain, n/v. moving bowels, on clear liquid diet. - Constitutional Vitals: Temp Pulse Resp BP Pulse Ox 97.8 F 58 18 123/66 91 12/13/16 11:08 12/13/16 11:08 12/13/16 11:08 12/13/16 11:08 12/13/16 11:08 General appearance: Present: A&O X 3, no acute distress Exam: Gen.: patient is alert oriented not in distress. Cardiac: Normal S1 S2 no additional sounds or murmurs chest: clear to auscultation abdomen soft nontender nondistended bowel sounds present lower extremity: lax calf muscles neuro no focal deficit Internal Medicine: Result - Labs CBC & Chem 7: 12/13/16 05:28 12/13/16 05:28 Labs: Short CBC 12/13/16 Range/Units 05:28 WBC 8.8 (4.3-11.1) K/mcL Hgb 10.9 L D (12.9-16.9) g/dL Hct 37.3 L (37.5-50.1) % Plt Count 295 (140-400) K/mcL Neutrophils # 4.7 (1.6-8.9) K/mcL BMP 12/13/16 05:28 Sodium 141 Potassium 4.0 Chloride 109 Carbon Dioxide 25 BUN 29 H Creatinine 2.22 H Glucose 161 H Calcium 8.3 L Consult Discharge Plan - Plan Referrals: Lio Gold CNP [Primary Care Provider] - 12/18/16 2:00 pm
[2016-12-13] MEDS ORDERED: Insulin LISPRO 300 UNITS/3 ML VIAL SQ SCH (21:00)
[2016-12-14] MEDS: *HR* Heparin 5,000 UNIT/ML VIAL SQ SCH (05:04)
[2016-12-14 07:26] VITALS: BP 168/75
[2016-12-14] MEDS: Budesonide/Formoterol 160/4.5 MDI IH SCH (07:48)
[2016-12-14 08:24] LABS: Basophils # 0.1 K/mcL (0.0-0.2); Basophils % 1.3 %; Eosinophils # 0.5 K/mcL (0.0-0.6); Eosinophils % 6.2 %; Hemoglobin 10.9 g/dL (12.9-16.9); Immature Granulocytes % 0.3 % (0-4); Mean Corpuscular HGB Conc 31.1 g/dL (31.6-35.5); Mean Corpuscular Hemoglobin 24.7 pg (28.0-33.3); Mean Corpuscular Volume 79.2 fL (83.0-100.0); Mean Platelet Volume 11.6 fL (9.4-12.4); Monocytes # 0.6 K/mcL (0.0-1.3); Monocytes % 7.4 %; Neutrophils # 4.8 K/mcL (1.6-8.9); Platelet Count 263 K/mcL (140-400); Red Blood Count 4.42 M/mcL (4.19-5.50); Red Cell Distribution Width 18.5 % (11.5-14.5); Segmented Neutrophils % 59.8 %
[2016-12-14] MEDS: Pantoprazole 40 MG VIAL IVP SCH (08:38)
[2016-12-14] MEDS: MetroNIDAZOLE 500 MG/100 ML 500 MG/100 ML BAG IVPB SCH (08:38)
[2016-12-14 08:39] LABS: Calcium 8.5 mg/dL (8.6-10.8); Potassium 4.3 mEq/L (3.5-4.5)
[2016-12-14] MEDS: Insulin LISPRO 300 UNITS/3 ML VIAL SQ SCH (08:39)
[2016-12-14] MEDS: Isosorbide MONOnitrate (24 HR) 30 MG TAB.ER.24H PO SCH (08:39)
[2016-12-14] MEDS: Aspirin 81 MG TAB.CHEW PO SCH (08:39)
--- NOTE | 2016-12-14 10:06 | Discharge Summary ---
Date of Encounter: 12/14/16 Time of Encounter: 10:02 - Discharge Diagnosis (1) Gastroenteritis Priority: Primary Status: Acute (2) JAYLON (acute kidney injury) Priority: Primary Status: Resolved (3) CKD (chronic kidney disease) Priority: Secondary Status: Chronic Qualifiers: Chronic kidney disease stage: stage 3 (moderate) Qualified Code(s): N18.3 - Chronic kidney disease, stage 3 (moderate) (4) Diabetes Priority: Secondary Status: Chronic Qualifiers: Diabetes mellitus type: type 2 Diabetes mellitus complication status: with kidney complications Diabetes mellitus complication detail: with chronic kidney disease Chronic kidney disease stage: stage 3 (moderate) Qualified Code(s): E11.22 - Type 2 diabetes mellitus with diabetic chronic kidney disease ; N18.3 - Chronic kidney disease, stage 3 (moderate); 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 - Discharge Medications Prescriptions: MetroNIDAZOLE [Flagyl] 500 mg PO TID 4 Days Sennosides/Docusate Sodium [Senna Plus] 1 each PO BID #60 tablet Home Medications: Allopurinol [Zyloprim] 100 mg PO DAILY 05/13/15 [History] Aspirin 81 mg PO DAILY 05/13/15 [History] Cholecalciferol (Vitamin D3) [Vitamin D3] 5,000 mg PO DAILY 05/13/15 [History] Insulin DETEMIR [Levemir] 45 unit SQ BID 05/13/15 [History] Losartan [Cozaar] 25 mg PO DAILY 05/13/15 [History] Pantoprazole [Protonix] 40 mg PO DAILY 05/13/15 [History] Sertraline HCl [Zoloft] 25 mg PO HS 05/13/15 [History] Simvastatin [Zocor] 20 mg PO HS 05/13/15 [History] Vitamin E 400 unit PO DAILY 05/13/15 [History] Nitroglycerin 0.4 mg SL Q5MIN PRN #10 tab.subl 05/14/15 [Rx] Levothyroxine [Synthroid] 50 mcg PO DAILY 11/29/15 [History] Ranitidine HCl [Zantac] 150 mg PO HS 12/12/15 [History] Insulin LISPRO [Humalog] 20 unit SQ 1200 04/27/16 [History] Insulin LISPRO [Humalog] 20 unit SQ QAM 04/27/16 [History] Insulin LISPRO [Humalog] 25 unit SQ QPM 04/27/16 [History] Isosorbide MONOnitrate (24 HR) [Imdur] 30 mg PO DAILY #30 tab.er.24h 04/29/16 [ Rx] Metoprolol Tartrate [Lopressor] 50 mg PO BID #60 tablet 04/29/16 [Rx] Albuterol Sulfate [Albuterol Inhaler] 2 puff IH Q4H PRN 30 Days 10/21/16 [Rx] Budesonide/Formoterol 160/4.5 [Symbicort 160/4.5] 2 puff IH BIDR #1 inhaler 03/30 [Rx] Furosemide [Lasix] 40 mg PO DAILY PRN 10/21/16 [History] Oxygen 2 l NS AD 12/11/16 [History] MetroNIDAZOLE [Flagyl] 500 mg PO TID 4 Days 12/14/16 [Rx] Sennosides/Docusate Sodium [Senna Plus] 1 each PO BID #60 tablet 12/14/16 [Rx] Allergies/Adverse Reactions: Allergies morphine Allergy (Verified 10/21/16 05:41) Rash Date of admission: 12/12/16 08:48 Primary care physician: Lio Gold CNP Discharging clinician: Alessandra Chang Anticipated date of discharge: 12/14/16 - Patient Status Disposition: Home, Self-Care Condition: Fair Functional capacity at discharge: independent ambulation Overall status at discharge: patient is back to baseline - Discharge Instructions Instructions: Metronidazole (By mouth), Coronary Artery Disease (DC), Diabetes Mellitus Type 2 in Adults (DC), Leukocytosis (DC) Follow Up With: Lio Gold CNP [Primary Care Provider] - 12/18/16 2:00 pm - Diet and Activity Activity: resume usual activities as tolerated Diet: other (soft) Interval History: Mr. Colon is a very pleasant 86 year old male with multiple comorbidities who presented to the ED with a 24 hour history of central abdominal pain with associated nausea/vomiting/diarrhea. He states that his abdominal pain is located in the central abdomen and he denies any radiating factors. Denies any alleviating or aggrevating factors. He did have multiple episodes of diarrhea yesterday and one bowel movement this morning. Denies any melena, hematochezia. Admits to multiple episodes of nausea/vomiting without hematemesis or coffee ground emesis. His stool is negative for c-diff. Abdominal CT scan performed in the emergency room most concerning for bowel obstruction with transition point so was admitted for further evaluation. however after admission, Patients symptoms are resolving with bowel rest and he feels significantly better. HE was kept NPO overnight and was given IVF. Clinically no evidence of a SBO- moving bowel and passing flatus regularly, no nausea/vomiting while inhouse. Supportive care was continued with No surgical intervention indicated at this time as per gen surgical recommendation. He is being discharged today in stable condition. HE reports home and constipation normally and he gets [id number] medications. We will discharge him on senna plus and advised to take soft diet. Hospital course: Mr. Colon is a 86 year old male Time spent discussing smoking cessation with patient: more than 10 minutes - Time Spent with Patient Total time spent providing and/or coordinating discharge services: Greater than 30 minutes - Constitutional Vitals: Temp Pulse Resp BP Pulse Ox 98.4 F 65 16 168/75 90 12/14/16 07:24 12/14/16 07:24 12/14/16 07:48 12/14/16 07:48 12/14/16 07:48 General appearance: Present: A&O X 3, no acute distress Exam: Gen.: patient is alert oriented not in distress. Cardiac: Normal S1 S2 no additional sounds or murmurs chest: clear to auscultation abdomen soft nontender nondistended bowel sounds present lower extremity: lax calf muscles neuro no focal deficit
--- NOTE | 2016-12-14 11:26 | Physician Discharge Referral ---
Home Health/Hosp Referral Info Transfer to: Home Health Attending Provider: carmen vazquez - Diagnosis (1) Gastroenteritis Status: Acute (2) JAYLON (acute kidney injury) Status: Resolved (3) CKD (chronic kidney disease) Status: Chronic (4) Diabetes Status: Chronic - Respiratory Orders Smoking Cessation: Smoking cessation has been advised. For more information, call the [facility] Tobacco Quit Line at 7-935-TJCX-NOW. - Diet/Nutrition Diet/Nutrition Orders: Mechanical Soft - Activity Activity Orders: Up ad kimberly, Ambulate, Chair - Services Needed Following services are medically necessary services: Nursing, Home Health Aide, Physical Therapy, Occupational Therapy - Transfer Medications Prescriptions: MetroNIDAZOLE [Flagyl] 500 mg PO TID 4 Days Sennosides/Docusate Sodium [Senna Plus] 1 each PO BID #60 tablet Home Medications: Allopurinol [Zyloprim] 100 mg PO DAILY 05/13/15 [History] Aspirin 81 mg PO DAILY 05/13/15 [History] Cholecalciferol (Vitamin D3) [Vitamin D3] 5,000 mg PO DAILY 05/13/15 [History] Insulin DETEMIR [Levemir] 45 unit SQ BID 05/13/15 [History] Losartan [Cozaar] 25 mg PO DAILY 05/13/15 [History] Pantoprazole [Protonix] 40 mg PO DAILY 05/13/15 [History] Sertraline HCl [Zoloft] 25 mg PO HS 05/13/15 [History] Simvastatin [Zocor] 20 mg PO HS 05/13/15 [History] Vitamin E 400 unit PO DAILY 05/13/15 [History] Nitroglycerin 0.4 mg SL Q5MIN PRN #10 tab.subl 05/14/15 [Rx] Levothyroxine [Synthroid] 50 mcg PO DAILY 11/29/15 [History] Ranitidine HCl [Zantac] 150 mg PO HS 12/12/15 [History] Insulin LISPRO [Humalog] 20 unit SQ 1200 04/27/16 [History] Insulin LISPRO [Humalog] 20 unit SQ QAM 04/27/16 [History] Insulin LISPRO [Humalog] 25 unit SQ QPM 04/27/16 [History] Isosorbide MONOnitrate (24 HR) [Imdur] 30 mg PO DAILY #30 tab.er.24h 04/29/16 [ Rx] Metoprolol Tartrate [Lopressor] 50 mg PO BID #60 tablet 04/29/16 [Rx] Albuterol Sulfate [Albuterol Inhaler] 2 puff IH Q4H PRN 30 Days 10/21/16 [Rx] Budesonide/Formoterol 160/4.5 [Symbicort 160/4.5] 2 puff IH BIDR #1 inhaler 03/30 [Rx] Furosemide [Lasix] 40 mg PO DAILY PRN 10/21/16 [History] Oxygen 2 l NS AD 12/11/16 [History] MetroNIDAZOLE [Flagyl] 500 mg PO TID 4 Days 12/14/16 [Rx] Sennosides/Docusate Sodium [Senna Plus] 1 each PO BID #60 tablet 12/14/16 [Rx] Allergies/Adverse Reactions: Allergies morphine Allergy (Verified 10/21/16 05:41) Rash Certification: Further, I certify that my clinical findings support that this patient is homebound (i.e. absences from home require considerable and taxing effort and are for medical reasons or rastafari services or infrequently or short duration when for other reasons) because: Homebound Reason: Patient requires assistance of a person or device to safely leave home Attestation: My signature below is to certify that this patient is under my care and that I, or nurse practitioner, or a physician's field assistant working with me, has a face-to -face encounter with this patient.
== END 2016-12-14 11:20 | disposition home or self-care (01) | DRG 392 ==
LOC: 2ANU 19:20 → EMEROO 19:20 → 2ANU 12-12 02:45
PROVIDERS: ADMIT Internal Medicine; ATTEND Internal Medicine Endocrinology, Diabetes & Metabolism

== ENCOUNTER 2017-02-04 18:28 | Observation (INO) ==
--- NOTE | 2017-02-04 18:32 | Emergency Department Note ---
START Narrative - START START: I examined this patient and my medical decision-making was reviewed with the LOUVER MORTISER OPERATOR/PA/Advanced Practice Nurse/Resident Physician. I agree with the documented findings, disposition and treatment plan as described except to the extent set forth below. The patient presents with 6 episodes of dark black diarrheal stool since yesterday as well as feeling of shortness of breath. Oxygen saturation in the low 90s and he does have a history of heart failure and will have further evaluation for this. He is placed on nasal cannula oxygen. Rectal exam will be done. Labs including type and screen Are ordred. The patient's son is here with him today. 183 I did review the patient's EKG showing normal sinus rhythm with rate of 65 and without acute ischemic change. There are Q waves inferiorly likely indicating previous NH 1946
[2017-02-04] MEDS ORDERED: Ipratropium/Albuterol Neb 3 ML IH ONE (18:46)
--- NOTE | 2017-02-04 18:48 | Emergency Department Note ---
Disposition Clinical Impression: Dyspnea on exertion, Wheezing Anemia Qualifiers: Anemia type: unspecified type Qualified Code(s): D64.9 - Anemia, unspecified Disposition: Admitted As Inpatient Condition: Fair Referrals: Lio Gold CNP [Primary Care Provider] - Forms: ED Satisfaction Letter Time of Disposition: 20:31 GI Bleed HPI - General Chief complaint: ED GI Bleed Stated complaint: Black Stool Time Seen by Provider: 02/04/17 18:31 - History of Present Illness HPI Narrative: Patient is an 86-year-old male with past medical history significant for UT with stent, CHF, diabetes mellitus type2, CKD4, COPD, HTN, HLD, history of PE, history of DVT, presence of Lobito filter, diverticulosis, history of bowel obstruction. Patient states that he started having black diarrhea last night. Admits 6 such episodes. This has happened previously 3-4 times with the most recent being 2 weeks ago. Another episode was one month ago. Patient says that he had some mild abdominal pain in the left abdomen. Patient was seen in the ED for this problem one month ago. However, he is not scheduled a colonoscopy. Patient states last colonoscopy was 3-4 years ago with findings of diverticulosis, no polyps or evidence of melena see. Patient also presents with complaint of weakness that is increased in the last 2 days. Patient was unstable on his feet today and was unable to walk 25 feet due to dyspnea on exertion. Patient has increased wheezing today. Patient's son is present at bedside and states that patient had audible wheezing around 16:00 today. Patient does have home O2 Patient's home health nurse gave patient a nebulizer today with rescue inhaler for wheezing. Patient admits nonproductive cough, leg swelling, decreased urine stream, 2 episodes of nocturia per evening. Patient denies recent upper respiratory infection, chest pain, racing heart, nausea, vomiting, dysuria, hematuria. - Related Data Home Medications Medication Instructions Recorded Confirmed Allopurinol [Zyloprim] 100 mg PO DAILY 05/13/15 02/04/17 Aspirin 81 mg PO DAILY 05/13/15 02/04/17 Cholecalciferol (Vitamin D3) 5,000 mg PO DAILY 05/13/15 02/04/17 [Vitamin D3] Insulin DETEMIR [Levemir] 45 unit SQ BID 05/13/15 02/04/17 Losartan [Cozaar] 25 mg PO DAILY 05/13/15 02/04/17 Pantoprazole [Protonix] 40 mg PO DAILY 05/13/15 02/04/17 Sertraline HCl [Zoloft] 25 mg PO HS 05/13/15 02/04/17 Simvastatin [Zocor] 20 mg PO HS 05/13/15 02/04/17 Vitamin E 400 unit PO DAILY 05/13/15 02/04/17 Levothyroxine [Synthroid] 50 mcg PO DAILY 11/29/15 02/04/17 Ranitidine HCl [Zantac] 150 mg PO HS 12/12/15 02/04/17 Insulin LISPRO [Humalog] 20 unit SQ 1200 04/27/16 02/04/17 Insulin LISPRO [Humalog] 20 unit SQ QAM 04/27/16 02/04/17 Insulin LISPRO [Humalog] 25 unit SQ QPM 04/27/16 02/04/17 Furosemide [Lasix] 40 mg PO DAILY PRN 10/21/16 02/04/17 Ferrous Gluconate 324 mg PO DAILY 01/12/17 02/04/17 Sennosides/Docusate Sodium [Senna 1 each PO DAILY 01/12/17 02/04/17 Plus] Previous Rx's Medication Instructions Recorded Nitroglycerin 0.4 mg SL Q5MIN PRN #10 tab.subl 05/14/15 Isosorbide MONOnitrate (24 HR) 30 mg PO DAILY #30 tab.er.24h 04/29/16 [Imdur] Metoprolol Tartrate [Lopressor] 50 mg PO BID #60 tablet 04/29/16 Albuterol Sulfate [Albuterol 2 puff IH Q4H PRN 30 Days 10/21/16 Inhaler] Budesonide/Formoterol 160/4.5 2 puff IH BIDR #1 inhaler 10/21/16 [Symbicort 160/4.5] Allergies Allergy/AdvReac Type Severity Reaction Status Date / Time morphine Allergy Rash Verified 01/12/17 20:47 All systems ED: reviewed and negative except as stated. Constitutional: Reports: as per HPI Eyes: Reports: as per HPI ENT ED: Reports: as per HPI Cardiovascular: Reports: as per HPI Respiratory: Reports: as per HPI Gastrointestinal: Reports: as per HPI Genitourinary: Reports: as per HPI Musculoskeletal: Reports: as per HPI Integumentary: Reports: as per HPI Neurological: Reports: as per HPI Psychiatric: Reports: as per HPI Endocrine: Reports: as per HPI Hematological/Lymphatic: Reports: as per HPI Allergic/Immunologic: Reports: as per HPI Past Medical History - Past Medical History Medical history: Reports: CHF, COPD, coronary artery disease, DVT, diabetes, hyperlipidemia, hypertension, myocardial infarction, pulmonary embolus, renal disease Surgical history: Reports: cholecystectomy, herniorrhaphy, other, IVC Filter Psychiatric history: Reports: no psych history - Social History Smoking Status: Former smoker Smokeless Tobacco Status: No Alcohol use: Reports: none Drug use: Reports: none Physical Exam - General Limitations: other General appearance: alert (Hearing deficit), in no apparent distress - Head Head exam: atraumatic - Eye Eye exam: Present: EOMI - Chest Chest inspection: Present: normal inspection, symmetric chest wall rise. Absent : tenderness - Respiratory Respiratory exam: Present: wheezes (Wheezes present in bilateral lungs. Wheezing is worse at right lung base and right upper lung.), other (No rales bilaterally). Absent: respiratory distress, stridor, accessory muscle use - Cardiovascular Cardiovascular exam: Present: regular rate, normal rhythm, +S1, +S2, other ( Decreased heart sounds) - Abdominal Exam Abdominal exam: Present: soft, Non-Tender, normal bowel sounds. Absent: distention, guarding, rebound, rigidity - Rectal Exam Gin Inspector present during exam: Yes Rectal exam: Present: normal inspection, normal rectal tone, heme (-) stool. Absent: hemorrhoids, mass, tenderness - Extremities Exam Extremities exam: Present: normal inspection, full ROM, pedal edema (1+2 bilateral lower extremities). Absent: calf tenderness - Back Exam Back exam: Present: normal inspection, full ROM - Neurological Exam Neurological exam: Present: alert, oriented X3 - Psychiatric Psychiatric exam: Present: normal affect, normal mood - Skin Skin exam: Present: warm, dry, intact Course - Reevaluation(s) Reevaluation #1: Patient x-ray is negative for infiltrate, pleural effusion, and pneumothorax. His troponin is negative 1. His BMP is negative. EKG demonstrates no acute ischemic changes. He did have some improvement of his wheezing following nebulizer treatment. However, given his history of heart disease and his dyspnea on exertion concern is this could be an anginal equivalent. Patient will be admitted for further evaluation of myocardial ischemia. Time: 20:30 Vital Signs Temperature 97.9 F 02/04/17 18:40 Pulse Rate 71 02/04/17 18:40 Respiratory Rate 22 02/04/17 18:40 Blood Pressure 175/92 02/04/17 18:40 O2 Sat by Pulse Oximetry 92 02/04/17 18:40 Temperature 97.9 F 02/04/17 18:40 Pulse Rate 73 02/04/17 20:09 Respiratory Rate 20 02/04/17 20:09 Blood Pressure 134/61 02/04/17 20:09 O2 Sat by Pulse Oximetry 90 02/04/17 20:09 Oxygen Delivery Oxygen Delivery Nasal Cannula GI Bleed - [facility] Narrative Medical decision making narrative: Patient has complaint of black stools for the last day. However, Hemoccult was negative. Will obtain CBC to investigate possibility of anemia. Patient did have a hemoglobin of 12 on 01/12/2017. Patient has wheezing to right lung greater than left area. I am concerned for COPD exacerbation versus CHF exacerbation. I have given patient nebulizer and will reevaluate lung sounds following this treatment. Also, I will obtain chest x-ray to investigate possibility of pulmonary edema given his history of CHF. - Lab Data Result diagrams: 02/04/17 18:59 02/04/17 18:59 Lab Results 02/04/17 02/04/17 02/04/17 Range/Units 18:59 18:59 18:59 WBC 7.8 (4.3-11.1) K/mcL RBC 4.67 (4.19-5.50) M/mcL Hgb 11.3 L (12.9-16.9) g/dL Hct 37.4 L (37.5-50.1) % MCV 80.1 L (83.0-100.0) fL MCH 24.2 L (28.0-33.3) pg MCHC 30.2 L (31.6-35.5) g/dL RDW 19.9 H (11.5-14.5) % Plt Count 258 (140-400) K/mcL MPV 11.5 (9.4-12.4) fL Sodium 136 (136-145) mEq/L Potassium 4.5 (3.5-4.5) mEq/L Chloride 101 (98-109) mEq/L Carbon Dioxide 25 (19-29) mEq/L BUN 27 H (8-26) mg/dL Creatinine 2.28 H (0.72-1.25) mg/dL Est GFR ( Amer) 33 L (> 60) Est GFR (Non-Af Amer) 27 L (> 60) BUN/Creatinine Ratio 12 (6-26) Glucose 349 H (70-99) mg/dL Calculated Osmolality 301 H (280-300) Calcium 9.1 (8.6-10.8) mg/dL Troponin I (0-0.03) ng/mL B-Natriuretic Peptide 34 (0-100) pg/mL Blood Type Antibody Screen 02/04/17 02/04/17 Range/Units 18:59 18:59 WBC (4.3-11.1) K/mcL RBC (4.19-5.50) M/mcL Hgb (12.9-16.9) g/dL Hct (37.5-50.1) % MCV (83.0-100.0) fL MCH (28.0-33.3) pg MCHC (31.6-35.5) g/dL RDW (11.5-14.5) % Plt Count (140-400) K/mcL MPV (9.4-12.4) fL Sodium (136-145) mEq/L Potassium (3.5-4.5) mEq/L Chloride (98-109) mEq/L Carbon Dioxide (19-29) mEq/L BUN (8-26) mg/dL Creatinine (0.72-1.25) mg/dL Est GFR ( Amer) (> 60) Est GFR (Non-Af Amer) (> 60) BUN/Creatinine Ratio (6-26) Glucose (70-99) mg/dL Calculated Osmolality (280-300) Calcium (8.6-10.8) mg/dL Troponin I 0.02 (0-0.03) ng/mL B-Natriuretic Peptide (0-100) pg/mL Blood Type O POSITIVE Antibody Screen NEGATIVE - EKG Data EKG attestation: Yes I reviewed and interpreted this EKG. EKG results narrative: EKG is NSR with rate 65bpm, First degree AV block, Q waves in anterior and inferior leads likely due to prior UT, no acute ST segment changes.
[2017-02-04 19:22] LABS: Calcium 9.1 mg/dL (8.6-10.8); Potassium 4.5 mEq/L (3.5-4.5)
[2017-02-04 19:24] LABS: Hematocrit 37.4 % (37.5-50.1); Hemoglobin 11.3 g/dL (12.9-16.9); Mean Corpuscular HGB Conc 30.2 g/dL (31.6-35.5); Mean Corpuscular Hemoglobin 24.2 pg (28.0-33.3); Mean Corpuscular Volume 80.1 fL (83.0-100.0); Mean Platelet Volume 11.5 fL (9.4-12.4); Platelet Count 258 K/mcL (140-400); Red Blood Count 4.67 M/mcL (4.19-5.50); Red Cell Distribution Width 19.9 % (11.5-14.5)
--- NOTE | 2017-02-04 23:21 | Internal Med History&Physical ---
Date of Encounter: 02/04/17 Time of Encounter: 23:19 Assessment and Plan (1) Melena Current visit: Yes Status: Acute this is most likely related to his diverticulosis though upper GI bleed cannot be ruled out, we will monitor for spontaneous resolution and follow CBC, should he continue to have significant amounts of dark stools or a significant Hb drop we will get GI input (2) Gastroenteritis Current visit: Yes Status: Acute etiology unclear at this point, unlikely to be infectious or inflammatory since he has no leucocytosis, we will follow symptoms and consider stool studies (3) Diabetes Current visit: Yes Status: Chronic Hx of type 2DM with A1c of 7.5% in 12/2016 on insulin, we will continue basal bolus regimen with FS ACHS, SSI for coverage ordered Qualifiers: Diabetes mellitus type: type 2 Diabetes mellitus complication status: with neurologic complications Diabetes mellitus complication detail: with polyneuropathy Diabetes mellitus assistant terminal manager insulin use: with prison use Qualified Code(s): E11.42 - Type 2 diabetes mellitus with diabetic polyneuropathy; Z79.4 - FPC (current) use of insulin (4) COPD (chronic obstructive pulmonary disease) Current visit: Yes Status: Chronic stable, mild wheezing at end of expiration, we will do PRN nebs Qualifiers: COPD type: chronic bronchitis Chronic bronchitis type: simple Qualified Code(s): J41.0 - Simple chronic bronchitis (5) HTN (hypertension) Current visit: Yes Status: Chronic will continue home medications with BP monitoring Qualifiers: Hypertension type: essential hypertension Qualified Code(s): I10 - Essential (primary) hypertension (6) CKD stage 3 due to type 2 diabetes mellitus Current visit: Yes Status: Chronic seems stable, will avoid nephrotoxins, renally dose all medications, hydrate, follow BMP (7) Obesity Current visit: Yes Status: Chronic will benefit from counseling Qualifiers: Obesity type: due to excess calories Obesity severity: non-morbid Qualified Code(s): E66.09 - Other obesity due to excess calories Internal Medicine - H&P: HPI Chief complaint: dark loose stools Admitted From: Emergency Dept Plans for Post Hospital Care: Home History of present illness: Mr. Colon is a 86 year old male with a history of diabetes mellitus type 2/CKD stage 4/COPD/HTN, HLD/DVT-PE s/p Lobito filter/diverticulosis/bowel obstruction was brought to the ER for loose watery dark stools. He reports being in his usual state of health until about 10:30pm last night when he began to have loose watery dark stools that went on until about 5pm. Later throughout the day he continued to have these same symptoms followed by left lower abdominal pain that was crampy/sore in nature and 4-5/10 in severity that sometimes radiated throughout the lower abdomen. He had associated nausea and chills, no fever or vomiting. He reports previous episodes, most recent was about a month ago for which he was seen here at [place]. Past Med Surg Social Fam HX - Past Medical History Medical history: CHF, COPD, coronary artery disease, DVT, diabetes, hyperlipidemia, hypertension, myocardial infarction, pulmonary embolus, renal disease (CKD stage 3) Psychiatric history: no psych history - Past Surgical History Surgical History: cholecystectomy, herniorrhaphy, other, IVC Filter - Social History Smoking Status: Former smoker Smokeless Tobacco Status: No Alcohol use: none Drug use: none - Family History Brother Hx Family Cardiac Disorders: Yes ([place]) Father Family Member Ethnicity: Non- Living Status: Hx Family Cardiac Disorders: No Hx Family Respiratory Disorders: No Hx Family Cancer: No Hx Family GI Disorders: No Hx Family Endocrine Disorder: No Hx Family Neuromuscular Disorders: No Hx Family Neurologic Disorders: No Hx Family HEENT Disorders: No Hx Family Autoimmune Disorders: No Internal Medicine - H&P: Meds Allopurinol [Zyloprim] 100 mg PO DAILY 05/13/15 [History] Aspirin 81 mg PO DAILY 05/13/15 [History] Cholecalciferol (Vitamin D3) [Vitamin D3] 5,000 mg PO DAILY 05/13/15 [History] Insulin DETEMIR [Levemir] 45 unit SQ BID 05/13/15 [History] Losartan [Cozaar] 25 mg PO DAILY 05/13/15 [History] Pantoprazole [Protonix] 40 mg PO DAILY 05/13/15 [History] Sertraline HCl [Zoloft] 25 mg PO HS 05/13/15 [History] Simvastatin [Zocor] 20 mg PO HS 05/13/15 [History] Vitamin E 400 unit PO DAILY 05/13/15 [History] Nitroglycerin 0.4 mg SL Q5MIN PRN #10 tab.subl 05/14/15 [Rx] Levothyroxine [Synthroid] 50 mcg PO DAILY 11/29/15 [History] Ranitidine HCl [Zantac] 150 mg PO HS 12/12/15 [History] Insulin LISPRO [Humalog] 20 unit SQ 1200 04/27/16 [History] Insulin LISPRO [Humalog] 20 unit SQ QAM 04/27/16 [History] Insulin LISPRO [Humalog] 25 unit SQ QPM 04/27/16 [History] Isosorbide MONOnitrate (24 HR) [Imdur] 30 mg PO DAILY #30 tab.er.24h 04/29/16 [ Rx] Metoprolol Tartrate [Lopressor] 50 mg PO BID #60 tablet 04/29/16 [Rx] Albuterol Sulfate [Albuterol Inhaler] 2 puff IH Q4H PRN 30 Days 10/21/16 [Rx] Budesonide/Formoterol 160/4.5 [Symbicort 160/4.5] 2 puff IH BIDR #1 inhaler 03/30 [Rx] Furosemide [Lasix] 40 mg PO DAILY PRN 10/21/16 [History] Ferrous Gluconate 324 mg PO DAILY 01/12/17 [History] Sennosides/Docusate Sodium [Senna Plus] 1 each PO DAILY 01/12/17 [History] Allergies morphine Allergy (Verified 01/12/17 20:47) Rash All Systems PM: A 10-system review of systems was performed and is negative for pertinent findings except as documented above in the HPI. - Constitutional Vitals: Temp Pulse Resp BP Pulse Ox 97.9 F 67 18 185/82 2 02/04/17 22:19 02/04/17 22:19 02/04/17 22:19 02/04/17 22:19 02/04/17 22:38 PHYSICAL EXAMINATION: GENERAL: Elderly male, lying in bed with no obvious sign of distress or pain, Alert, HEENT: NC/AT, EOMI, PERRLA, anicteric sclera, normal conjunctiva, supple, clear nares, dry mucous membranes, RESP: lungs are clear to auscultation bilaterally with occasional end expiratory wheeze, good AE bilaterally, CARDIO: Normal hearts sounds; S1 and 2, RRR with no murmurs, no JVD, no ankle edema GI: Soft but diffusely tender with no guarding, full, no organomegaly felt, normal bowel sounds heard MUSCULOSKELETAL: grossly normal movements bilaterally, no deformities noted, no calf tenderness NEUROLOGIC: CN 2-12 intact grossly. No motor/sensory deficit appreciated, PSYCHIATRY: AAO x 3. Mood is fair, SKIN: skin tags noted, with seborrhea keratosis lesions on the back Internal Med - H&P Results - Labs CBC & Chem 7: 02/05/17 03:24 02/05/17 03:24 - Diagnostic Studies Chest x-ray Status: image reviewed by me
[2017-02-04] MEDS ORDERED: Albuterol 2.5 MG/3 ML NEBULIZER IH PRN (23:28)
[2017-02-04] MEDS ORDERED: Naloxone 0.4 MG/ML INJ IVP PRN (23:28)
[2017-02-04] MEDS ORDERED: Dextrose Gel 15 GM PO PRN ×2 (23:29)
[2017-02-04] MEDS ORDERED: D5% in Water 1,000 ML IVC PRN (23:29)
[2017-02-04] MEDS ORDERED: *HR* Dextrose 50 % in Water (Syg) 50 ML SYRINGE IVP PRN (23:29)
[2017-02-04] MEDS ORDERED: Insulin LISPRO 300 UNITS/3 ML VIAL SQ SCH (23:30)
[2017-02-04] MEDS ORDERED: NON-FORMULARY MEDICATION 1 EACH EACH (Insulin Detemir 45 UNIT) SQ SCH (23:30)
[2017-02-04] MEDS ORDERED: Famotidine 20 MG TABLET PO SCH (23:30)
[2017-02-04] MEDS: Insulin LISPRO 300 UNITS/3 ML VIAL SQ SCH (23:52)
[2017-02-05] MEDS: Insulin DETEMIR 100 UNIT/ML X5UNITS SQ SCH ×2 (00:15→09:33)
[2017-02-05 04:05] LABS: Hematocrit 35.1 % (37.5-50.1); Hemoglobin 10.9 g/dL (12.9-16.9); Mean Corpuscular HGB Conc 31.1 g/dL (31.6-35.5); Mean Corpuscular Hemoglobin 24.5 pg (28.0-33.3); Mean Corpuscular Volume 79.1 fL (83.0-100.0); Mean Platelet Volume 11.7 fL (9.4-12.4); Platelet Count 230 K/mcL (140-400); Red Blood Count 4.44 M/mcL (4.19-5.50); Red Cell Distribution Width 19.6 % (11.5-14.5)
[2017-02-05 04:17] LABS: Calcium 8.9 mg/dL (8.6-10.8); Magnesium 1.5 mg/dL (1.6-2.6); Phosphorous 2.6 mg/dL (2.3-4.7); Potassium 3.7 mEq/L (3.5-4.5)
[2017-02-05] MEDS: Insulin LISPRO 300 UNITS/3 ML VIAL SQ SCH ×6 (08:33→16:55)
[2017-02-05] MEDS ORDERED: Acetaminophen 325 MG TABLET PO PRN (08:47)
[2017-02-05] MEDS ORDERED: Aspirin 81 MG TAB.CHEW PO SCH (09:00)
[2017-02-05] MEDS ORDERED: Isosorbide MONOnitrate (24 HR) 30 MG TAB.ER.24H PO SCH (09:00)
[2017-02-05] MEDS ORDERED: INSULIN LISPRO 20 UNIT SQ SCH ×2 (09:00→12:00)
[2017-02-05] MEDS ORDERED: Budesonide/Formoterol 160/4.5 MDI IH SCH (10:00)
--- NOTE | 2017-02-05 11:04 | Electrocardiograph Report ---
[address] [place], [place] [address] Test Date: 2017-02-04 Pat Name: Sierra Isaiah Department: 102 Room: 3B41 Gender: M Shift Mgr: : 1930 Requested By: Soo Perez Order Number: [id number] Reading MD: Klaus Parrish MD Measurements Intervals [place] Rate: 65 P: 36 DE: 229 QRS: 6 QRSD: 109 T: 40 QT: 448 QTc: 460 Interpretive Statements SINUS RHYTHM WITH FIRST DEGREE AV BLOCK LOW QRS VOLTAGE IN PRECORDIAL LEADS INFERIOR MYOCARDIAL INFARCTION, PROBABLY OLD Electronically Signed On 02-05-2017 11:02:26 EDT by Klaus Parrish MD
[2017-02-05 15:20] VITALS: BP 115/51
--- NOTE | 2017-02-05 17:14 | Discharge Summary ---
Date of Encounter: 02/05/17 Time of Encounter: 10:35 - Discharge Diagnosis (1) Melena Priority: Primary Status: Acute Comments: Patient reports that he had several episodes of dark diarrhea yesterday morning. He said abdominal cramping awakened him at 2:30 in the morning. He had 6 episodes of the same diarrhea between 2:30 AM and 6 AM. He has had none since. He denies any bright red bleeding or maroon stool. His abdomen is soft and nontender. He denies abdominal pain or cramping. His abdomen is distended and soft with bowel sounds present. He is tolerating a regular diet without difficulty. Patient has a history of diverticulosis. There is no significant change in the H&H. Hemoglobin is 10.9, was 11 3 on admission. Other labs remained within normal limits. Stool occult blood was negative. He should have a follow-up with either GI or primary care physician after discharge for further evaluation if necessary. (2) CKD (chronic kidney disease) stage 3, GFR 30-59 ml/min Priority: Secondary Status: Chronic Comments: Chronic. GFR is 34 today. Creatinine is 1.89. This is actually low baseline for patient. Avoid NSAIDs and nephrotoxins. (3) CAD (coronary artery disease) Priority: Secondary Status: Chronic Comments: Chronic. He denies chest pain. Continue aspirin and beta jaron. Qualifiers: Coronary Disease-Associated Artery/Lesion type: [place] artery [place] vs. transplanted heart: [place] heart Associated angina: without angina Qualified Code(s): I25.10 - Atherosclerotic heart disease of [place] coronary artery without angina pectoris (4) Diabetes Priority: Secondary Status: Chronic Comments: A1c was 7.5 one month ago. Accu-Cheks have been elevated today. Continue home medications. Qualifiers: Diabetes mellitus type: type 2 Diabetes mellitus complication status: with neurologic complications Diabetes mellitus complication detail: with polyneuropathy Diabetes mellitus intermediate accountant insulin use: with intermediate accountant use Qualified Code(s): E11.42 - Type 2 diabetes mellitus with diabetic polyneuropathy; Z79.4 - intermediate accountant (current) use of insulin (5) DVT prophylaxis Priority: Secondary Status: Acute (6) Obesity Priority: Secondary Status: Chronic Comments: Chronic. Lifestyle changes. Qualifiers: Obesity type: due to excess calories Obesity severity: non-morbid Qualified Code(s): E66.09 - Other obesity due to excess calories - Discharge Medications Home Medications: Allopurinol [Zyloprim] 100 mg PO DAILY 05/13/15 [History] Aspirin 81 mg PO DAILY 05/13/15 [History] Cholecalciferol (Vitamin D3) [Vitamin D3] 5,000 mg PO DAILY 05/13/15 [History] Insulin DETEMIR [Levemir] 45 unit SQ BID 05/13/15 [History] Losartan [Cozaar] 25 mg PO DAILY 05/13/15 [History] Pantoprazole [Protonix] 40 mg PO DAILY 05/13/15 [History] Sertraline HCl [Zoloft] 25 mg PO HS 05/13/15 [History] Simvastatin [Zocor] 20 mg PO HS 05/13/15 [History] Vitamin E 400 unit PO DAILY 05/13/15 [History] Nitroglycerin 0.4 mg SL Q5MIN PRN #10 tab.subl 05/14/15 [Rx] Levothyroxine [Synthroid] 50 mcg PO DAILY 11/29/15 [History] Ranitidine HCl [Zantac] 150 mg PO HS 12/12/15 [History] Insulin LISPRO [Humalog] 20 unit SQ 1200 04/27/16 [History] Insulin LISPRO [Humalog] 20 unit SQ QAM 04/27/16 [History] Insulin LISPRO [Humalog] 25 unit SQ QPM 04/27/16 [History] Isosorbide MONOnitrate (24 HR) [Imdur] 30 mg PO DAILY #30 tab.er.24h 04/29/16 [ Rx] Metoprolol Tartrate [Lopressor] 50 mg PO BID #60 tablet 04/29/16 [Rx] Albuterol Sulfate [Albuterol Inhaler] 2 puff IH Q4H PRN 30 Days 10/21/16 [Rx] Budesonide/Formoterol 160/4.5 [Symbicort 160/4.5] 2 puff IH BIDR #1 inhaler 03/30 [Rx] Furosemide [Lasix] 40 mg PO DAILY PRN 10/21/16 [History] Ferrous Gluconate 324 mg PO DAILY 01/12/17 [History] Sennosides/Docusate Sodium [Senna Plus] 1 each PO DAILY 01/12/17 [History] Glucagon, Human Recombinant [Glucagen] 1 mg IM ONCE PRN #0 vial 02/05/17 [Rx] Insulin DETEMIR [Levemir] 45 unit SQ BID [id number] 02/05/17 [Rx] Allergies/Adverse Reactions: Allergies morphine Allergy (Verified 01/12/17 20:47) Rash Date of admission: 02/04/17 20:53 Primary care physician: Lio Gold CNP Discharging clinician: Haydee Gonzalez Anticipated date of discharge: 02/05/17 - Patient Status Disposition: Home, Self-Care Condition: Good Functional capacity at discharge: uses cane/walker Overall status at discharge: patient is back to baseline - Discharge Instructions Follow Up With: Lio Gold CNP [Primary Care Provider] - Additional Instructions: Please follow up with your primary care provider or GI specialist within the next 2 weeks for a follow up. Return to the ER if your symptoms return or if you have any other concerns. Resume your home medications. - Diet and Activity Activity: increase activity as tolerated Diet: diabetic diet, low fat, low cholesterol, low salt diet Interval History: Mr. Colon is an 86-year-old male with history of hypertension, stage III renal disease, obesity, hypertension, diabetes, and COPD. He presented to the emergency department yesterday morning with a complaint of 6 episodes of dark diarrhea between the hours of 2:30 AM and 6 AM. He said the cramping that awakened him from sleep. He denies any bright red bleeding or maroon-colored stools. He has not had any episodes like this since he arrived. His abdomen is rounded and obese nontender with bowel sounds present. There is no hepatomegaly or palpable masses or hernias. He denies cramping or pain or melena. Patient states that he feels like he is ready to go home now. There is not been a significant drop in the hemoglobin or hematocrit. Hemoglobin is 10.9 today. It was 11.3 on arrival. Other labs and vital signs remained stable. Stool occult blood was negative. Patient is able to follow up outpatient with GI or primary care for further evaluation, or return to the emergency department should symptoms return. Hospital course: Mr. Colon is a 86 year old male - Time Spent with Patient Total time spent providing and/or coordinating discharge services: Less than 30 minutes - Constitutional Vitals: Temp Pulse Resp BP Pulse Ox 97.7 F 65 17 115/51 95 02/05/17 15:19 02/05/17 15:19 02/05/17 15:19 02/05/17 15:19 02/05/17 15:19 General appearance: Present: A&O X 3, pleasant, obese, answers questions appropriately - Head Head exam: Present: normal inspection - Eye Eye exam: Present: normal appearance, PERRL. Absent: nystagmus - ENT ENT exam: Present: mucous membranes moist, normal exam, normal external ear exam - Neck Neck exam general surgery: Present: normal inspection. Absent: lymphadenopathy , tenderness - Cardiovascular Cardiovascular exam: Present: RRR, +S1, +S2. Absent: bradycardia, clicks, diastolic murmur, distant heart sounds, gallop, JVD, systolic murmur, tachycardia - GI/Abdominal GI/Abdominal exam: Present: distended, normal bowel sounds, soft. Absent: hepatomegaly, tenderness - Extremities Exam Extremities exam: Present: normal capillary refill, pedal edema, warm, radial pulses palpable and symetrical. Absent: tenderness - Neurological Exam Neurological exam: Present: alert, oriented X3, no focal deficits, strengths equal and symetr throughout. Absent: facial droop, speech deficit
[2017-02-05] MEDS ORDERED: INSULIN LISPRO 25 UNIT SQ SCH (18:00)
== END 2017-02-05 18:15 | disposition home or self-care (01) ==
LOC: 3BNU 18:28 → EMEROO 18:28 → 3BNU 22:09
PROVIDERS: ADMIT Internal Medicine; ATTEND Registered Nurse

== ENCOUNTER 2017-03-04 17:14 | Inpatient (IN) ==
[2017-03-04] MEDS ORDERED: methylPREDNISolone 125 MG/2 ML VIAL IVP ONE (17:40)
[2017-03-04] MEDS ORDERED: Ipratropium/Albuterol Neb 3 ML IH ONE (17:40)
--- NOTE | 2017-03-04 17:48 | Emergency Department Note ---
Disposition Clinical Impression: Acute exacerbation of chronic obstructive airways disease Disposition: Admitted As Inpatient Condition: Fair Referrals: Lio Gold CNP [Primary Care Provider] - Forms: ED Satisfaction Letter Time of Disposition: 18:47 SOB HPI - General Chief Complaint: ED Shortness of Breath/Dyspnea Stated Complaint: MOUSTAPHA Time Seen by Provider: 03/04/17 17:32 Source: patient Mode of arrival: wheelchair Limitations: no limitations Nursing Notes Reviewed: Yes Vital Signs Reviewed: Yes - History of Present Illness 86-year-old male with a history of COPD and CHF comes in with a 2 to three-day history of increasing shortness of breath. He is noticed to increase and his leg edema. He presents now for evaluation. Pt Subjective Complaint: shortness of breath, cough Onset (ago): day(s) Severity: moderate Consistency/Duration: constant Improves with: nothing Worsens with: exertion Known history of: COPD, congestive heart failure Associated symptoms: Reports: cough, wheezing. Denies: fever Treatment prior to arrival: none Cough Description: Involuntary Cough Frequency: Intermittent - Related Data Home Medications Medication Instructions Recorded Confirmed Allopurinol [Zyloprim] 100 mg PO DAILY 05/13/15 02/04/17 Aspirin 81 mg PO DAILY 05/13/15 02/04/17 Cholecalciferol (Vitamin D3) 5,000 mg PO DAILY 05/13/15 02/04/17 [Vitamin D3] Insulin DETEMIR [Levemir] 45 unit SQ BID 05/13/15 02/04/17 Losartan [Cozaar] 25 mg PO DAILY 05/13/15 02/04/17 Pantoprazole [Protonix] 40 mg PO DAILY 05/13/15 02/04/17 Sertraline HCl [Zoloft] 25 mg PO HS 05/13/15 02/04/17 Simvastatin [Zocor] 20 mg PO HS 05/13/15 02/04/17 Vitamin E 400 unit PO DAILY 05/13/15 02/04/17 Levothyroxine [Synthroid] 50 mcg PO DAILY 11/29/15 02/04/17 Ranitidine HCl [Zantac] 150 mg PO HS 12/12/15 02/04/17 Insulin LISPRO [Humalog] 20 unit SQ 1200 04/27/16 02/04/17 Insulin LISPRO [Humalog] 20 unit SQ QAM 04/27/16 02/04/17 Insulin LISPRO [Humalog] 25 unit SQ QPM 04/27/16 02/04/17 Furosemide [Lasix] 40 mg PO DAILY PRN 10/21/16 02/04/17 Ferrous Gluconate 324 mg PO DAILY 01/12/17 02/04/17 Sennosides/Docusate Sodium [Senna 1 each PO DAILY 01/12/17 02/04/17 Plus] Previous Rx's Medication Instructions Recorded Nitroglycerin 0.4 mg SL Q5MIN PRN #10 tab.subl 05/14/15 Isosorbide MONOnitrate (24 HR) 30 mg PO DAILY #30 tab.er.24h 04/29/16 [Imdur] Metoprolol Tartrate [Lopressor] 50 mg PO BID #60 tablet 04/29/16 Albuterol Sulfate [Albuterol 2 puff IH Q4H PRN 30 Days 10/21/16 Inhaler] Budesonide/Formoterol 160/4.5 2 puff IH BIDR #1 inhaler 10/21/16 [Symbicort 160/4.5] Glucagon, Human Recombinant 1 mg IM ONCE PRN #0 vial 02/05/17 [Glucagen] Insulin DETEMIR [Levemir] 45 unit SQ BID [id number] 02/05/17 Allergies Allergy/AdvReac Type Severity Reaction Status Date / Time morphine Allergy Rash Verified 01/12/17 20:47 All systems ED: reviewed and negative except as stated. Constitutional: Denies: fever, chills, weakness, weight change Eyes: Denies: eye pain, eye discharge, vision change ENT ED: Denies: ear pain, throat pain, dental pain, hearing loss, epistaxis, congestion, dysphagia Cardiovascular: Denies: chest pain, palpitations, dyspnea on exertion, edema, syncope Respiratory: Reports: cough, dyspnea, wheezes. Denies: hemoptysis, stridor Gastrointestinal: Denies: abdominal pain, nausea, vomiting, diarrhea, constipation, hematemesis, melena, hematochezia Genitourinary: Denies: urgency, dysuria, frequency, hematuria Musculoskeletal: Denies: back pain, neck pain, arthralgia, myalgia Integumentary: Denies: rash, abrasion, lesions Neurological: Denies: headache, weakness, numbness, paresthesias, confusion, abnormal gait, vertigo Psychiatric: Denies: anxiety, depression, suicidal thoughts, homicidal thoughts , auditory hallucinations, visual hallucinations Endocrine: Denies: fatigue Hematological/Lymphatic: Denies: easy bleeding, easy bruising Allergic/Immunologic: Denies: facial swelling, urticaria Past Medical History - Past Medical History Medical history: Reports: CHF, COPD, coronary artery disease, DVT, diabetes, hyperlipidemia, hypertension, myocardial infarction, pulmonary embolus, renal disease Surgical history: Reports: cholecystectomy, herniorrhaphy, other, IVC Filter Psychiatric history: Reports: no psych history - Social History Smoking Status: Former smoker Smokeless Tobacco Status: No Alcohol use: Reports: none Drug use: Reports: none Physical Exam - General Limitations: no limitations General appearance: alert, in no apparent distress - Head Head exam: atraumatic, normocephalic, normal inspection - Eye Eye exam: Present: normal appearance, PERRL, EOMI - ENT ENT exam: normal exam, normal oropharynx, mucous membranes moist - Neck Neck exam: Present: normal inspection, full ROM, trachea midline - Chest Chest inspection: Present: normal inspection, symmetric chest wall rise - Respiratory Respiratory exam: Present: normal lung sounds bilaterally, wheezes - Cardiovascular Cardiovascular exam: Present: regular rate, normal rhythm, normal heart sounds - Abdominal Exam Abdominal exam: Present: soft, Non-Tender. Absent: tenderness, distention, guarding, rebound, rigidity - Extremities Exam Extremities exam: Present: normal inspection, full ROM. Absent: tenderness, pedal edema - Expanded Lower Extremity Exam Neurovascular/Tendon exam: Absent: motor deficit, sensory deficit, tendon deficit Gait: observed and normal - Back Exam Back exam: Present: normal inspection, full ROM. Absent: tenderness - Neurological Exam Neurological exam: Present: alert, oriented X3 - Psychiatric Psychiatric exam: Present: normal affect, normal mood - Skin Skin exam: Present: warm, dry, intact, normal color Course - Reevaluation(s) Reevaluation #1: 86-year-old was CHF and COPD comes in with increasing shortness of breath with significant exertional dyspnea. Workup here shows a BNP of 86 a nonremarkable chest x-ray. Was given a breathing treatment and steroids continue have exertional dyspnea. Time: 18:46 - Consultations Consultation #1: Discussed with Julisa Campbell nurse practitioner admit. Time: 18:46 Vital Signs Temperature 98.1 F 06/21/17 17:16 Pulse Rate 73 03/04/17 17:16 Respiratory Rate 22 03/04/17 17:16 Blood Pressure 184/77 03/04/17 17:16 O2 Sat by Pulse Oximetry 94 03/04/17 17:16 Temperature 98.1 F 03/04/17 17:16 Pulse Rate 63 03/04/17 18:00 Respiratory Rate 18 03/04/17 18:00 Blood Pressure 170/90 03/04/17 18:00 O2 Sat by Pulse Oximetry 97 03/04/17 18:00 Oxygen Delivery Oxygen Delivery Nasal Cannula Shortness of Breath/Dyspnea - Lab Data Result diagrams: 03/04/17 17:50 03/04/17 17:50 Lab Results 03/04/17 03/04/17 03/04/17 Range/Units 17:50 17:50 17:50 WBC 8.4 (4.3-11.1) K/mcL RBC 4.71 (4.19-5.50) M/mcL Hgb 11.7 L (12.9-16.9) g/dL Hct 38.4 (37.5-50.1) % MCV 81.5 L (83.0-100.0) fL MCH 24.8 L (28.0-33.3) pg MCHC 30.5 L (31.6-35.5) g/dL RDW 19.4 H (11.5-14.5) % Plt Count 275 (140-400) K/mcL MPV 10.8 (9.4-12.4) fL Immature Gran % 0.5 (0-4) % Seg Neutrophils % 58.1 % Lymphocytes % 26.7 % Monocytes % 6.8 % Eosinophils % 6.6 % Basophils % 1.3 % Neutrophils # 4.9 (1.6-8.9) K/mcL Lymphocytes # 2.3 (0.6-4.6) K/mcL Monocytes # 0.6 (0.0-1.3) K/mcL Eosinophils # 0.6 (0.0-0.6) K/mcL Basophils # 0.1 (0.0-0.2) K/mcL PT (9.4-12.1) Seconds INR Sodium 139 (136-145) mEq/L Potassium 4.2 (3.5-4.5) mEq/L Chloride 105 (98-109) mEq/L Carbon Dioxide 24 (19-29) mEq/L BUN 23 (8-26) mg/dL Creatinine 2.03 H (0.72-1.25) mg/dL Est GFR ( Amer) 38 L (> 60) Est GFR (Non-Af Amer) 31 L (> 60) BUN/Creatinine Ratio 11 (6-26) Glucose 196 H (70-99) mg/dL Calculated Osmolality 297 (280-300) Lactic Acid 1.7 (0.5-2.2) mmol/L Calcium 9.1 (8.6-10.8) mg/dL Troponin I (0-0.03) ng/mL B-Natriuretic Peptide (0-100) pg/mL 03/04/17 03/04/17 03/04/17 Range/Units 17:50 17:50 17:50 WBC (4.3-11.1) K/mcL RBC (4.19-5.50) M/mcL Hgb (12.9-16.9) g/dL Hct (37.5-50.1) % MCV (83.0-100.0) fL MCH (28.0-33.3) pg MCHC (31.6-35.5) g/dL RDW (11.5-14.5) % Plt Count (140-400) K/mcL MPV (9.4-12.4) fL Immature Gran % (0-4) % Seg Neutrophils % % Lymphocytes % % Monocytes % % Eosinophils % % Basophils % % Neutrophils # (1.6-8.9) K/mcL Lymphocytes # (0.6-4.6) K/mcL Monocytes # (0.0-1.3) K/mcL Eosinophils # (0.0-0.6) K/mcL Basophils # (0.0-0.2) K/mcL PT 11.3 (9.4-12.1) Seconds INR 1.0 Sodium (136-145) mEq/L Potassium (3.5-4.5) mEq/L Chloride (98-109) mEq/L Carbon Dioxide (19-29) mEq/L BUN (8-26) mg/dL Creatinine (0.72-1.25) mg/dL Est GFR ( Amer) (> 60) Est GFR (Non-Af Amer) (> 60) BUN/Creatinine Ratio (6-26) Glucose (70-99) mg/dL Calculated Osmolality (280-300) Lactic Acid (0.5-2.2) mmol/L Calcium (8.6-10.8) mg/dL Troponin I 0.00 (0-0.03) ng/mL B-Natriuretic Peptide 68 (0-100) pg/mL - EKG Data EKG attestation: Yes I reviewed and interpreted this EKG. EKG shows normal: Reports: sinus rhythm Rate: Reports: normal Rhythm: Reports: NSR Heart block present: Reports: 1st Degree Q waves: Reports: III Interpretation: Reports: no acute changes
[2017-03-04 18:03] LABS: Basophils # 0.1 K/mcL (0.0-0.2); Basophils % 1.3 %; Eosinophils # 0.6 K/mcL (0.0-0.6); Eosinophils % 6.6 %; Hematocrit 38.4 % (37.5-50.1); Hemoglobin 11.7 g/dL (12.9-16.9); Immature Granulocytes % 0.5 % (0-4); Lymphocytes # 2.3 K/mcL (0.6-4.6); Lymphocytes % 26.7 %; Mean Corpuscular HGB Conc 30.5 g/dL (31.6-35.5); Mean Corpuscular Hemoglobin 24.8 pg (28.0-33.3); Mean Corpuscular Volume 81.5 fL (83.0-100.0); Mean Platelet Volume 10.8 fL (9.4-12.4); Monocytes # 0.6 K/mcL (0.0-1.3); Monocytes % 6.8 %; Neutrophils # 4.9 K/mcL (1.6-8.9); Platelet Count 275 K/mcL (140-400); Red Blood Count 4.71 M/mcL (4.19-5.50); Red Cell Distribution Width 19.4 % (11.5-14.5); Segmented Neutrophils % 58.1 %
[2017-03-04 18:16] LABS: Calcium 9.1 mg/dL (8.6-10.8); Potassium 4.2 mEq/L (3.5-4.5)
[2017-03-04 18:18] LABS: Prothrombin Time 11.3 Seconds (9.4-12.1)
[2017-03-04] MEDS ORDERED: Naloxone 0.4 MG/ML INJ IVP PRN (19:24)
[2017-03-04] MEDS ORDERED: Ondansetron 4 MG/2 ML VIAL IVP PRN (19:24)
[2017-03-04] MEDS ORDERED: Acetaminophen 325 MG TABLET PO PRN (19:24)
[2017-03-04] MEDS ORDERED: Nitroglycerin 0.4 MG TAB.SUBL SL PRN (19:26)
--- NOTE | 2017-03-04 20:35 | Internal Med History&Physical ---
<NeilrubennabilLio diaz - Last Filed: 03/04/17 21:22> Date of Encounter: 03/04/17 Time of Encounter: 20:00 Assessment and Plan (1) Acute on chronic diastolic CHF (congestive heart failure) Current visit: Yes Status: Acute Assess: Patient presents with history of chronic diastolic CHF and presents today with acute exacerbation of CHF Plan: Lasix 20 mg IVP ONCE ordered Lasix 40 mg IVP daily ordered Continuous cardiac telemetry Fluid restriction diet ordered with 1.5L restriction daily Monitor I&O daily Monitor daily weight (2) Acute exacerbation of chronic obstructive airways disease Current visit: Yes Status: Acute Assess: Patient presents with acute exacerbation of chronic obstructive airways disease. Plan: Supplemental O2 ordered with titration if SPO2 less than 92% Continuous SPO2 monitoring Prednisone 80 mg IVP every 6 for COPD exacerbation Ipratropium/albuterol 3 mL IH 4 times a day (3) SOB (shortness of breath) Current visit: Yes Status: Acute Assess: Patient presents with acute shortness of breath which is worsened over the past 2-3 days in intensity. Patient has history of CHF and COPD as well as PE. Plan: Supplemental O2 ordered with titration if SPO2 less than 92% Continuous SPO2 monitoring Prednisone 80 mg IVP every 6 for COPD exacerbation Ipratropium/albuterol 3 mL IH 4 times a day Falls precautions ordered Up with assist only Bedside commode with assist only (4) Diabetes mellitus Current visit: Yes Status: Chronic Assess: Patient presents with history of chronic diabetes mellitus controlled with insulin. Plan: Blood glucose monitoring ACHS Continue patient's insulin Hypoglycemic protocol ordered Qualifiers: Diabetes mellitus type: type 1 Diabetes mellitus complication status: with kidney complications Diabetes mellitus complication detail: with chronic kidney disease Chronic kidney disease stage: stage 3 (moderate) Qualified Code(s): E10.22 - Type 1 diabetes mellitus with diabetic chronic kidney disease ; N18.3 - Chronic kidney disease, stage 3 (moderate) (5) HTN (hypertension) Current visit: Yes Status: Chronic Assess: History presents with history of chronic hypertension. Plan: Continue Cozaar Continue Lopressor Monitor patient vital signs Qualifiers: Hypertension type: essential hypertension Qualified Code(s): I10 - Essential (primary) hypertension (6) Hyperlipidemia Current visit: Yes Status: Chronic Assess: Patient presents with history of chronic hyperlipidemia. Plan: Lipid panel ordered Continue simvastatin Qualifiers: Hyperlipidemia type: unspecified Qualified Code(s): E78.5 - Hyperlipidemia , unspecified (7) DVT prophylaxis Current visit: No Status: Acute Assess: Patient be placed on DVT prophylaxis to admission protocol as well as bedrest status. Plan: Heparin 5,000 units SQ Q8 Internal Medicine - H&P: HPI Chief complaint: SOB/Dyspnea Admitted From: Emergency Dept Plans for Post Hospital Care: Home History of present illness: Mr. Colon is a 86 year old male who presents from the ED with chief complaint of extreme shortness of breath and dyspnea for the past 2-3 days with episodes increasing in intensity. Patient also reports having cough with difficulty bringing up sputum. Mr. Colon states 2 days ago his cough resulted in stabbing sensation in his chest which lasted for approximately 5-10 seconds and slowly subsided. Patient has a history of COPD and CHF as well as a history of pneumonia. Patient was hospitalized approximately 1 month ago for the same symptoms. Patient has 1+ pitting edema bilaterally in lower extremities and states he takes Lasix 40 mg daily. Patient denies recent illness, fever, chills , generalized weakness, nausea, vomiting, diarrhea, constipation, headache, or unusual bleeding. Patient has a history of CAD, DVT, PE, hyperlipidemia, hypertension, [place], and renal disease. On examination, patient has expiratory wheezes in all lobes bilaterally. Patient's son (KINGSLEY) confirmed patient's CODE STATUS of DNRCCA/DNI. Patient is at high risk for respiratory failure due to history of CHF and COPD and will be placed as inpatient status with orders for continuous cardiac monitoring, supplemental O2 with titration if SPO2 less than 92%, continuous SPO2 monitoring, prednisone 80 mg IVP every 6 hours, ipratropium /albuterol 3 mL IH 4 times a day, and continuation of patient's home meds. Patient to be monitored closely. Time spent with patient greater than 40 minutes. Past Med Surg Social Fam HX - Past Medical History Source: patient Medical history: CHF, COPD, coronary artery disease, DVT, diabetes, hyperlipidemia, hypertension, myocardial infarction, pulmonary embolus, renal disease Psychiatric history: no psych history - Past Surgical History Surgical History: cholecystectomy, herniorrhaphy, other, IVC Filter - Social History Smoking Status: Former smoker Smokeless Tobacco Status: No Alcohol use: none Drug use: none Current living situation: Home Activity Level: Uses cane/walker Recent Out of Country Travel Within the Last 8 Weeks: No Exposure or Possible Exposure to Illness During Travel: No - Family History Brother Hx Family Cardiac Disorders: Yes ([place]) Father Family Member Ethnicity: Non- Living Status: Hx Family Cardiac Disorders: No Hx Family Respiratory Disorders: No Hx Family Cancer: No Hx Family GI Disorders: No Hx Family Endocrine Disorder: No Hx Family Neuromuscular Disorders: No Hx Family Neurologic Disorders: No Hx Family HEENT Disorders: No Hx Family Autoimmune Disorders: No Internal Medicine - H&P: Meds Allopurinol [Zyloprim] 100 mg PO DAILY 05/13/15 [History] Aspirin 81 mg PO DAILY 05/13/15 [History] Cholecalciferol (Vitamin D3) [Vitamin D3] 5,000 mg PO DAILY 05/13/15 [History] Losartan [Cozaar] 25 mg PO DAILY 05/13/15 [History] Pantoprazole [Protonix] 40 mg PO DAILY 05/13/15 [History] Sertraline HCl [Zoloft] 25 mg PO HS 05/13/15 [History] Simvastatin [Zocor] 20 mg PO HS 05/13/15 [History] Vitamin E 400 unit PO DAILY 05/13/15 [History] Nitroglycerin 0.4 mg SL Q5MIN PRN #10 tab.subl 05/14/15 [Rx] Levothyroxine [Synthroid] 50 mcg PO DAILY 11/29/15 [History] Ranitidine HCl [Zantac] 150 mg PO HS 12/12/15 [History] Insulin LISPRO [Humalog] 20 unit SQ 1200 04/27/16 [History] Insulin LISPRO [Humalog] 20 unit SQ QAM 04/27/16 [History] Insulin LISPRO [Humalog] 25 unit SQ QPM 04/27/16 [History] Isosorbide MONOnitrate (24 HR) [Imdur] 30 mg PO DAILY #30 tab.er.24h 04/29/16 [ Rx] Metoprolol Tartrate [Lopressor] 50 mg PO BID #60 tablet 04/29/16 [Rx] Albuterol Sulfate [Albuterol Inhaler] 2 puff IH Q4H PRN 30 Days 10/21/16 [Rx] Budesonide/Formoterol 160/4.5 [Symbicort 160/4.5] 2 puff IH BIDR #1 inhaler 03/30 [Rx] Furosemide [Lasix] 40 mg PO DAILY PRN 10/21/16 [History] Ferrous Gluconate 324 mg PO DAILY 01/12/17 [History] Sennosides/Docusate Sodium [Senna Plus] 1 each PO DAILY 01/12/17 [History] Glucagon, Human Recombinant [Glucagen] 1 mg IM ONCE PRN #0 vial 02/05/17 [Rx] Insulin DETEMIR [Levemir] 45 unit SQ BID [id number] 02/05/17 [Rx] Arformoterol Tartrate [Brovana] 15 mcg IH BID 03/04/17 [History] Budesonide Neb [Pulmicort Neb] 0.5 mg IH BID 03/04/17 [History] Hydrocortisone 2.5% CREAM [Cortaid] 1 appl TP BID 03/04/17 [History] Allergies morphine Allergy (Verified 01/12/17 20:47) Rash All Systems PM: A 10-system review of systems was performed and is negative for pertinent findings except as documented above in the HPI. - Constitutional Constitutional: no chills, no fever(s), no night sweats - EENT Eyes: no change in vision, no discharge, no pain, no photophobia Ears: no ear discharge, no ear pain, no tinnitus Nose, mouth and throat: no dysphagia, no nasal discharge, no neck pain, no sore throat - Breasts Breasts: as per HPI - Cardiovascular Cardiovascular ROS IM: as per HPI, dyspnea, dyspnea on exertion, edema ( Bilateral pedal), no chest pain, no diaphoresis, no lightheadedness, no palpitations, no syncope - Respiratory Respiratory: as per HPI, cough, dyspnea, dyspnea on exertion, wheezing, chest congestion, pain with cough - Gastrointestinal Gastrointestinal: no abdominal pain, no diarrhea, no hematemesis, no hematochezia, no melena, no nausea, no vomiting - Genitourinary Genitourinary ROS male: as per HPI, urinary urgency (Due to Lasix) - Musculoskeletal Musculoskeletal ROS IM: no numbness, no tingling - Integumentary Integumentary IM: no rash, no unusual bruising - Neurological Neurological ROS: no confusion, no convulsions, no focal weakness, no numbness, no tingling, no tremor(s) - Psychiatric Psychiatric: as per HPI - Endocrine Endocrine IM: as per HPI - Hematologic/Lymphatic Hematologic/Lymphatic: no easy bruising - Allergic/Immunologic Allergic/Immunologic: as per HPI - Constitutional Vitals: Temp Pulse Resp BP Pulse Ox 98.1 F 70 18 163/87 2 03/04/17 17:16 03/04/17 18:30 03/04/17 18:50 03/04/17 18:50 03/04/17 19:38 General appearance: Present: cooperative, A&O X 3, pleasant, no acute distress, obese, answers questions appropriately - Head Head exam: Present: atraumatic, normocephalic - Eye Eye exam: Present: PERRL, conjuntiva pink, sclera anicteric Pupils: Present: PERRL - ENT ENT exam: Present: normal exam, normal external ear exam - Neck Neck exam general surgery: Present: supple, trachea midline. Absent: lymphadenopathy - Respiratory Respiratory exam: Present: wheezes (Expiratory wheezes bilaterally in all lobes) - Cardiovascular Cardiovascular exam: Present: RRR, +S1, +S2. Absent: diastolic murmur, gallop, rubs, systolic murmur - GI/Abdominal GI/Abdominal exam: Present: normal bowel sounds, soft, no peritoneal signs. Absent: distended, tenderness - Rectal Rectal exam: Present: deferred - Additional comments: exam deferred. - Extremities Exam Extremities exam: Present: pedal edema (1+ pitting in LE bilaterally), radial pulses palpable and symetrical. Absent: calf tenderness, cyanotic - Back Exam Back exam: Present: normal inspection - Neurological Exam Neurological exam: Present: CN II-XII intact, oriented X3, no focal deficits. Absent: pronater drift, facial droop, speech deficit - Psychiatric Psychiatric exam: Present: normal affect, normal mood - Skin Skin exam: Present: dry, intact Internal Med - H&P Results - Labs CBC & Chem 7: 03/04/17 17:50 03/04/17 17:50 - EKG Data EKG shows normal: sinus rhythm - EKG Data Prior EKG available for review: no EKG comments: 03/04/17 20:53 EKG dateed 03/04/17 shows sinus rhythm with first-degree AV block, inferior myocardial infarction [40+ ms Q wave and/or ST/T abnormality in II/aVF], probably old. - Diagnostic Studies Chest x-ray Additional comments: Impressions Chest X-Ray 03/04/17 17:40 IMPRESSION: Stable chest. No acute cardiopulmonary disease. D/ / Ishmael Walker MD / Ishmael Walker MD Interpreting Provider: Ishmael Walker MD <Max Lea - Last Filed: 03/04/17 21:40> Date of Encounter: 03/04/17 Internal Medicine - H&P: HPI History of present illness: Mr. Colon is a 86 year old male All Systems PM: A 10-system review of systems was performed and is negative for pertinent findings except as documented above in the HPI. - Constitutional Vitals: Temp Pulse Resp BP Pulse Ox 97.5 F L 63 16 168/79 95 03/04/17 20:30 03/04/17 20:30 03/04/17 20:30 03/04/17 20:30 03/04/17 20:30 Internal Med - H&P Results - Labs CBC & Chem 7: 03/04/17 17:50 03/04/17 17:50 - Attending Attestation I have seen and examined the patient at around 8:30 p.m. I have discussed about the patient with the nurse practitioner, Lio Rob. I have reviewed the orders and the note. Patient is a 86-year-old male with a past medical history of hypertension, diabetes, hyperlipidemia, CHF, CAD, CKD3, COPD , h/o DVT and h/o PE. He presents to the ED with complaints of shortness of breath that started about 2-3 days ago. Symptoms have gradually worsened. Patient states symptoms are worse with exertion. no alleviating factors On examination patient is awake and alert, not in any acute distress. He is able to provide history. Son is at bedside, who is the power of optical goods drilling machine operator and he also provides the history. Patient also complains of worsening edema over both lower legs. Patient denies chest pain, dizziness, palpitations, abdominal pain or any other problems. Patient is being admitted for COPD exacerbation and CHF. We will continue his home medications. He will also be on IV Lasix. Continue breathing treatments and IV Solu-Medrol. Strict I's and O's and daily weights. I discussed with the patient and his son about patient's condition and plan of care. CODE STATUS also discussed with them, and patient is a DNR DNI and comfort care status. We will consult palliative care as well. Heart rate 63, blood pressure 160/80, O2 sat 95% on 2 L O2, heart S1-S2 positive, lungs bilateral mild wheezing, extremities bilateral lower leg edema 2+.
[2017-03-04] MEDS ORDERED: Dextrose Gel 15 GM PO PRN ×2 (20:42)
[2017-03-04] MEDS ORDERED: *HR* Dextrose 50 % in Water (Syg) 50 ML SYRINGE IVP PRN (20:42)
[2017-03-04] MEDS ORDERED: D5% in Water 1,000 ML IVC PRN (20:42)
[2017-03-04] MEDS ORDERED: Insulin LISPRO 300 UNITS/3 ML VIAL SQ SCH (21:00)
[2017-03-04] MEDS ORDERED: Furosemide 20 MG/2 ML VIAL IVP ONE (21:08)
[2017-03-04] MEDS: Insulin DETEMIR 100 UNIT/ML X5UNITS SQ SCH (21:18)
[2017-03-04] MEDS: Famotidine 20 MG TABLET PO SCH (21:18)
[2017-03-04] MEDS: Budesonide/Formoterol 160/4.5 MDI IH SCH (22:59)
[2017-03-04] MEDS: Ipratropium/Albuterol Neb 3 ML IH SCH (22:59)
[2017-03-05] MEDS: methylPREDNISolone 125 MG/2 ML VIAL IVP SCH ×4 (00:04→21:03)
[2017-03-05 03:50] LABS: Hematocrit 39.6 % (37.5-50.1); Hemoglobin 12.2 g/dL (12.9-16.9); Mean Corpuscular HGB Conc 30.8 g/dL (31.6-35.5); Mean Corpuscular Hemoglobin 24.8 pg (28.0-33.3); Mean Corpuscular Volume 80.5 fL (83.0-100.0); Mean Platelet Volume 11.3 fL (9.4-12.4); Platelet Count 282 K/mcL (140-400); Red Blood Count 4.92 M/mcL (4.19-5.50); Red Cell Distribution Width 19.4 % (11.5-14.5)
[2017-03-05] MEDS: Ipratropium/Albuterol Neb 3 ML IH SCH ×4 (04:09→23:07)
[2017-03-05 04:11] LABS: Magnesium 1.8 mg/dL (1.6-2.6); Potassium 4.8 mEq/L (3.5-4.5)
[2017-03-05] MEDS: *HR* Heparin 5,000 UNIT/ML VIAL SQ SCH ×2 (05:50→17:14)
[2017-03-05] MEDS: Famotidine 20 MG TABLET PO SCH ×2 (08:33→21:04)
[2017-03-05] MEDS: Aspirin 81 MG TAB.CHEW PO SCH (08:33)
[2017-03-05] MEDS: Insulin DETEMIR 100 UNIT/ML X5UNITS SQ SCH (08:33)
[2017-03-05] MEDS: Isosorbide MONOnitrate (24 HR) 30 MG TAB.ER.24H PO SCH (08:33)
[2017-03-05] MEDS: Cholecalciferol (D-3) 1,000 UNIT TABLET PO SCH (08:33)
[2017-03-05] MEDS: Sennosides/Docusate Sodium TABLET PO SCH (08:33)
[2017-03-05] MEDS: Insulin LISPRO 300 UNITS/3 ML VIAL SQ SCH ×2 (08:34→12:27)
[2017-03-05] MEDS: Furosemide 40 MG/4 ML VIAL IVP SCH (08:34)
[2017-03-05] MEDS ORDERED: INSULIN LISPRO 20 UNIT SQ SCH ×2 (09:00→12:00)
[2017-03-05] MEDS: Budesonide/Formoterol 160/4.5 MDI IH SCH ×2 (10:21→23:07)
--- NOTE | 2017-03-05 11:33 | Palliative - Consult Note ---
Date of Encounter: 03/05/17 Time of Encounter: 10:30 - Assessment and Plan (1) Chest pain Current Visit: No Status: Resolved Assessment and plan: One episode this does not seem to have returned. He resolved, and is secondary to herbal breathing plan per hospitalist team Qualifiers: Chest pain type: pleurodynia Qualified Code(s): R07.81 - Pleurodynia (2) Goals of care, counseling/discussion Current Visit: Yes Status: Acute Assessment and plan: Patient is DNR CCA DNI. This is the CODE STATUS he desires. Patient's overall goal is to return home, he will need help with home health care, and I have requested assistance from social work with this. 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 Does not meet hospice criteria at this time and does not wish to be considered for hospice at this time. Patient has no pain issues, his shortness of breath is getting better, his advanced directives have been addressed as well as his CODE STATUS and social work is working with him for healthcare at time of discharge. Therefore palliative care will sign off please feel free to reconsult if we can help in any way. (3) CKD (chronic kidney disease) stage 3, GFR 30-59 ml/min Current Visit: No Status: Chronic Assessment and plan: Poor kidney function overall, avoid nephrotoxins, plan per hospitalist team (4) COPD exacerbation Current Visit: No Status: Acute Assessment and plan: Oxygen, bronchodilators, steroids, plan per hospitalist team (5) Acute on chronic diastolic CHF (congestive heart failure) Current Visit: Yes Status: Acute Assessment and plan: Echo done approximately a year ago shows a 60% ejection fraction, and mild diastolic dysfunction. The patient is able to get up and get around, does not appear to be short of breath at rest at baseline. I do not believe he currently meets [place] [employer] Association 4 criteria for congestive heart failure. Palliative-CN HPI - Data of Consult Patient: new to practice Requesting Physician: Haydee Gonzalez CNP Primary Care Provider: Lio Gold CNP - Consult Narrative Palliative Care/Comfort Measures: Palliative care Reason for consult: Goals of care History of present illness: Mr. Colon is a 86 year old male With a history of mild tonic diastolic heart failure ejection fraction of 60% April of last year with mild diastolic dysfunction noted on the echo, noted getting more short of breath for the last couple of days. [place] last he was getting around quite well with his walker. The patient uses a walker to get around and he is able to do well with that with not too much trouble with shortness of breath. The patient has had 5 hospitalizations in the last year, however these hospitalizations were due to GI problems including a GI bleed, and not related back to CHF or COPD. 3 days prior to admission was yesterday patient having a cough and difficulty bringing up sputum along with increasing shortness of breath and dyspnea on exertion. So had an episode of a stabbing sensation in his chest for about 10 seconds and was probably about a 7 or 8/10. Did not radiate nothing seemed to bring it on it came on on its own and then went away. Was listed in the history of present illness as having been in the hospital a month ago for similar symptoms, however [facility] diagnosis list them out as having had a GI bleed. Agent has had increasing pedal edema, denies any other discomfort at this time states his appetite is been good no nausea or vomiting no constipation no diarrhea or abdominal pain no blood. Was admitted for respiratory failure due to a history of CHF and COPD. Oxygen pterygoids bronchodilators. Review of care was consulted regarding goals of care. Already DNR CCA DNI. CC: Haydee Gonzalez CNP Shortness of breath Past Med Surg Social Fam HX - Past Medical History Medical history: CHF, COPD, coronary artery disease, DVT, diabetes, hyperlipidemia, hypertension, myocardial infarction, pulmonary embolus, renal disease Psychiatric history: no psych history - Past Surgical History Surgical History: cholecystectomy, herniorrhaphy, other, IVC Filter - Social History Smoking Status: Former smoker Smokeless Tobacco Status: No Alcohol use: none Drug use: none - Family History Brother Hx Family Cardiac Disorders: Yes ([place]) Father Family Member Ethnicity: Non- Living Status: Hx Family Cardiac Disorders: No Hx Family Respiratory Disorders: No Hx Family Cancer: No Hx Family GI Disorders: No Hx Family Endocrine Disorder: No Hx Family Neuromuscular Disorders: No Hx Family Neurologic Disorders: No Hx Family HEENT Disorders: No Hx Family Autoimmune Disorders: No Medications and Allergies Allopurinol [Zyloprim] 100 mg PO DAILY 05/13/15 [History] Aspirin 81 mg PO DAILY 05/13/15 [History] Cholecalciferol (Vitamin D3) [Vitamin D3] 5,000 mg PO DAILY 05/13/15 [History] Losartan [Cozaar] 25 mg PO DAILY 05/13/15 [History] Pantoprazole [Protonix] 40 mg PO DAILY 05/13/15 [History] Sertraline HCl [Zoloft] 25 mg PO HS 05/13/15 [History] Simvastatin [Zocor] 20 mg PO HS 05/13/15 [History] Vitamin E 400 unit PO DAILY 05/13/15 [History] Nitroglycerin 0.4 mg SL Q5MIN PRN #10 tab.subl 05/14/15 [Rx] Levothyroxine [Synthroid] 50 mcg PO DAILY 11/29/15 [History] Ranitidine HCl [Zantac] 150 mg PO HS 12/12/15 [History] Insulin LISPRO [Humalog] 20 unit SQ 1200 04/27/16 [History] Insulin LISPRO [Humalog] 20 unit SQ QAM 04/27/16 [History] Insulin LISPRO [Humalog] 25 unit SQ QPM 04/27/16 [History] Isosorbide MONOnitrate (24 HR) [Imdur] 30 mg PO DAILY #30 tab.er.24h 04/29/16 [ Rx] Metoprolol Tartrate [Lopressor] 50 mg PO BID #60 tablet 04/29/16 [Rx] Albuterol Sulfate [Albuterol Inhaler] 2 puff IH Q4H PRN 30 Days 10/21/16 [Rx] Budesonide/Formoterol 160/4.5 [Symbicort 160/4.5] 2 puff IH BIDR #1 inhaler 03/30 [Rx] Furosemide [Lasix] 40 mg PO DAILY PRN 10/21/16 [History] Ferrous Gluconate 324 mg PO DAILY 01/12/17 [History] Sennosides/Docusate Sodium [Senna Plus] 1 each PO DAILY 01/12/17 [History] Glucagon, Human Recombinant [Glucagen] 1 mg IM ONCE PRN #0 vial 02/05/17 [Rx] Insulin DETEMIR [Levemir] 45 unit SQ BID [id number] 02/05/17 [Rx] Arformoterol Tartrate [Brovana] 15 mcg IH BID 03/04/17 [History] Budesonide Neb [Pulmicort Neb] 0.5 mg IH BID 03/04/17 [History] Hydrocortisone 2.5% CREAM [Cortaid] 1 appl TP BID 03/04/17 [History] Allergies morphine Allergy (Verified 01/12/17 20:47) Rash All systems: reviewed and no additional remarkable complaints except as stated ( See history of present illness) Palliative Care-Exam - Constitutional Vitals: Temp Pulse Resp BP Pulse Ox 97.5 F L 86 15 146/51 93 03/05/17 10:56 03/05/17 10:56 03/05/17 10:56 03/05/17 10:56 03/05/17 10:56 General appearance: Present: no acute distress - Head Head Exam: Present: atraumatic, normal inspection - Eye Eye exam: Present: EOMI, normal appearance, PERRL - ENT ENT exam: Present: mucous membranes moist - Neck Neck exam: Present: full ROM - Respiratory Respiratory exam: Present: decreased breath sounds, wheezes - Cardiovascular Cardiovascular exam: Present: RRR - GI/Abdominal Exam GI/Abdominal exam: Present: normal bowel sounds, soft. Absent: tenderness - Extremities Exam Extremities exam: Present: normal inspection. Absent: pedal edema, tenderness - Neurological Exam Neurological exam: Present: alert, oriented X3. Absent: motor sensory deficit ( Does have a great deal of difficulty with hearing) - Psychiatric Psychiatric exam: Present: normal affect, normal mood. Absent: agitated, anxious, homicidal ideation, suicidal ideation - Skin Skin exam: Present: dry, warm Internal Medicine - CN: Reslt - Labs CBC & Chem 7: 03/05/17 03:39 03/05/17 12:22 Labs: Short CBC 03/05/17 Range/Units 03:39 WBC 9.0 (4.3-11.1) K/mcL Hgb 12.2 L (12.9-16.9) g/dL Hct 39.6 (37.5-50.1) % Plt Count 282 (140-400) K/mcL BMP 03/05/17 03:39 Sodium 134 L Potassium 4.8 H Chloride 103 Carbon Dioxide 20 BUN 28 H Creatinine 2.05 H Glucose 350 H Calcium 9.0 - ABG Interpretation ABG results: PT/INR, D-dimer PT 11.3 Seconds (9.4-12.1) 03/04/17 17:50 Consult Discharge Plan - Plan Referrals: Lio Gold CNP [Primary Care Provider] - Palliative Quality Palliative Quality: Screen for Code Status: Yes, Screen for Goals of Care: Yes, Screen for Pain: Yes, If Pain Regimen Started, Initiate Bowel Regimen: Yes, Screen for Nausea/Vomitting: Yes Code Status: 03/04/17 20:28 Resuscitation Status: Active [RES] Routine Comment: Resuscitation Status: [id number]
--- NOTE | 2017-03-05 12:01 | Electrocardiograph Report ---
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
[2017-03-05 12:55] LABS: Calcium 8.9 mg/dL (8.6-10.8); Magnesium 1.8 mg/dL (1.6-2.6); Phosphorous 3.4 mg/dL (2.3-4.7); Potassium 4.6 mEq/L (3.5-4.5)
[2017-03-05] MEDS ORDERED: Insulin LISPRO 300 UNITS/3 ML VIAL SQ PRN (13:43)
[2017-03-05] MEDS ORDERED: *HR* Dextrose 50 % in Water (Syg) 50 ML SYRINGE IVP PRN (13:43)
[2017-03-05] MEDS ORDERED: 0.45 % Sodium Chloride w/KCl 20 MEQ/1,000 ML MLS IVC SCH (13:45)
[2017-03-05] MEDS ORDERED: Insulin Human Regular 100 UNIT in 0.9 % Sodium Chloride 100 ML IVC SCH ×3 (13:45→16:15)
--- NOTE | 2017-03-05 14:52 | Internal Med Progress Note ---
Date of Encounter: 03/05/17 Time of Encounter: 12:45 - Assessment and plan (1) Acute respiratory failure with hypoxia Current Visit: No Status: Acute Assessment and plan: Likely secondary to COPD exacerbation continue systemic steroids and bronchodilator support O2 supplementation as needed O2 sat goal: 89-92% bipap support as needed (2) Acute exacerbation of chronic obstructive airways disease Current Visit: Yes Status: Acute (3) DKA (diabetic ketoacidosis) Current Visit: Yes Status: Acute Assessment and plan: Noted to have persistent hyperglycemia with AG of 16 started insulin gtt as per DKA protocol gentle IV fluids given CHF accuchecks q1h with BMP q4h will resume home dose of Levemir once AG closes continue to closely monitor NPO at this time until AG closes. Qualifiers: Diabetes mellitus type: type 2 Diabetes mellitus complication detail: without coma Qualified Code(s): E13.10 - Other specified diabetes mellitus with ketoacidosis without coma (4) Chronic diastolic CHF (congestive heart failure) Current Visit: No Status: Chronic Assessment and plan: will continue IV diuresis may require additional diuretic dose given the IV fluid administration due to DKA 2D echo from April 2016 reported LVEF of 60% with mild LVH, mild LV diastolic dysfunction monitor I/Os, daily weights O2 supplementation as needed f/u repeat 2D echo (5) DVT prophylaxis Current Visit: No Status: Acute Assessment and plan: Heparin SQ (6) Coronary artery disease Current Visit: No Status: Chronic Assessment and plan: no signs of angina present at this time continue home meds Qualifiers: Coronary Disease-Associated Artery/Lesion type: [place] artery [place] vs. transplanted heart: [place] heart Associated angina: without angina Qualified Code(s): I25.10 - Atherosclerotic heart disease of [place] coronary artery without angina pectoris (7) HTN (hypertension) Current Visit: Yes Status: Chronic Assessment and plan: BP within acceptable range continue home meds Qualifiers: Hypertension type: essential hypertension Qualified Code(s): I10 - Essential (primary) hypertension (8) CKD stage 3 due to type 2 diabetes mellitus Current Visit: No Status: Chronic Assessment and plan: renal function at baseline will closely monitor (9) Goals of care, counseling/discussion Current Visit: Yes Status: Acute Assessment and plan: Palliative care consultation appreciated patient wishes to be DNR/DNI - Subjective Interval history: Patient is an 86y/o male admitted for acute respiratory distress secondary to COPD exacerbation. Patient was seen and examined with family present at bedside. Patient was reported to have elevated BG readings due to which stat BMP was requested. Patient's BMP was consistent with AGMA consistent with DKA. Pt remained clinically asymptomatic.Reports of improvement in his respiratory status since admission. Pt will be transferred to and started on Insulin drip with DKA protocol. gentle IV fluid hydration given CHF. - Constitutional Vitals: Temp Pulse Resp BP Pulse Ox 97.5 F L 86 15 146/51 93 03/05/17 10:56 03/05/17 10:56 03/05/17 10:56 03/05/17 10:56 03/05/17 10:56 General appearance: Present: cooperative, A&O X 3, morbidly obese, pleasant, no acute distress, answers questions appropriately - Head Head exam: Present: atraumatic, normocephalic - Eye Eye exam: Present: normal appearance, conjuntiva pink, sclera anicteric - Respiratory Respiratory exam: Absent: wheezes (bibasilar crackles) - Cardiovascular Cardiovascular exam: Present: RRR, +S1, +S2 - GI/Abdominal GI/Abdominal exam: Present: distended (obese), normal bowel sounds, soft. Absent: tenderness - Extremities Exam Extremities exam: Present: pedal edema, warm, radial pulses palpable and symetrical. Absent: calf tenderness - Neurological Exam Neurological exam: Present: alert, oriented X3 - Psychiatric Psychiatric exam: Present: normal affect, normal mood Internal Medicine: Result - Labs CBC & Chem 7: 03/05/17 03:39 03/05/17 12:22 Labs: Short CBC 03/05/17 Range/Units 03:39 WBC 9.0 (4.3-11.1) K/mcL Hgb 12.2 L (12.9-16.9) g/dL Hct 39.6 (37.5-50.1) % Plt Count 282 (140-400) K/mcL BMP 03/05/17 03/05/17 03:39 12:22 Sodium 134 L 133 L Potassium 4.8 H 4.6 H Chloride 103 100 Carbon Dioxide 20 17 L BUN 28 H 35 H Creatinine 2.05 H 2.34 H Glucose 350 H 498 H Calcium 9.0 8.9 - ABG Interpretation ABG results: PT/INR, D-dimer PT 11.3 Seconds (9.4-12.1) 03/04/17 17:50 Consult Discharge Plan - Plan Referrals: Lio Gold, YARA [Primary Care Provider] -
[2017-03-05 15:17] LABS: Albumin 3.3 g/dL (3.5-5.0); Albumin/Globulin Ratio 0.9 (1.1-2.2); Bilirubin,Total 0.6 mg/dL (0.2-1.2); Calcium 9.2 mg/dL (8.6-10.8); Globulin 3.8 g/dL (2.4-3.5); Potassium 4.5 mEq/L (3.5-4.5); Total Protein 7.1 g/dL (6.0-8.3)
--- NOTE | 2017-03-05 17:49 | Electrocardiograph Report ---
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
[2017-03-05] MEDS ORDERED: INSULIN LISPRO 25 UNIT SQ SCH (18:00)
[2017-03-05] MEDS ORDERED: Perflutren Lipid Microsphere 1.3 ML in 0.9 % Sodium Chloride 8.7 ML IVP ONE (18:01)
[2017-03-05 20:22] LABS: ABG Base Excess 1.1 mEq/L (-2.0 to 3.0); ABG HCO3 25.1 mEQ/L (21-27); ABG Oxygen Saturation 95 % (95-98); ABG PCO2 37 mmHg (35-45); ABG PH 7.44 pH Units (7.32-7.45); ABG PO2 75 mmHg (85-104); ABG TCO2 26.2 mEq/L (20-26); Blood Gas FiO2 32 %; Blood Gas Liter Flow 3 L/MIN
[2017-03-05 21:20] LABS: Albumin 3.5 g/dL (3.5-5.0); Albumin/Globulin Ratio 0.9 (1.1-2.2); Bilirubin,Total 0.6 mg/dL (0.2-1.2); Calcium 9.4 mg/dL (8.6-10.8); Globulin 3.9 g/dL (2.4-3.5); Potassium 4.1 mEq/L (3.5-4.5); Total Protein 7.4 g/dL (6.0-8.3)
[2017-03-05] MEDS ORDERED: Insulin DETEMIR 100 UNIT/ML X5UNITS SQ ONE (22:02)
[2017-03-06 02:18] LABS: Basophils % 0.1 %; Hematocrit 37.1 % (37.5-50.1); Hemoglobin 11.6 g/dL (12.9-16.9); Immature Granulocytes % 0.8 % (0-4); Lymphocytes # 1.1 K/mcL (0.6-4.6); Mean Corpuscular HGB Conc 31.3 g/dL (31.6-35.5); Mean Corpuscular Hemoglobin 24.8 pg (28.0-33.3); Mean Corpuscular Volume 79.3 fL (83.0-100.0); Mean Platelet Volume 11.5 fL (9.4-12.4); Monocytes % 3.6 %; Neutrophils # 13.4 K/mcL (1.6-8.9); Platelet Count 300 K/mcL (140-400); Red Blood Count 4.68 M/mcL (4.19-5.50); Red Cell Distribution Width 19.3 % (11.5-14.5); Segmented Neutrophils % 88.5 %
[2017-03-06 02:19] LABS: Monocytes # 0.5 K/mcL (0.0-1.3)
[2017-03-06 02:34] LABS: Albumin 3.3 g/dL (3.5-5.0); Albumin/Globulin Ratio 0.9 (1.1-2.2); Bilirubin,Total 0.5 mg/dL (0.2-1.2); Calcium 9.1 mg/dL (8.6-10.8); Globulin 3.7 g/dL (2.4-3.5); Phosphorous 3.9 mg/dL (2.3-4.7)
[2017-03-06 02:39] LABS: Magnesium 2.2 mg/dL (1.6-2.6)
[2017-03-06] MEDS: Ipratropium/Albuterol Neb 3 ML IH SCH ×4 (04:48→23:47)
[2017-03-06] MEDS: *HR* Heparin 5,000 UNIT/ML VIAL SQ SCH ×2 (06:07→17:17)
[2017-03-06] MEDS: methylPREDNISolone 125 MG/2 ML VIAL IVP SCH (06:08)
[2017-03-06] MEDS: Cholecalciferol (D-3) 1,000 UNIT TABLET PO SCH (08:03)
[2017-03-06] MEDS: Famotidine 20 MG TABLET PO SCH ×2 (08:03→21:59)
[2017-03-06] MEDS: Furosemide 40 MG/4 ML VIAL IVP SCH (08:03)
[2017-03-06] MEDS: Sennosides/Docusate Sodium TABLET PO SCH (08:03)
[2017-03-06] MEDS: Aspirin 81 MG TAB.CHEW PO SCH (08:03)
[2017-03-06] MEDS: Isosorbide MONOnitrate (24 HR) 30 MG TAB.ER.24H PO SCH (08:03)
[2017-03-06] MEDS: Insulin LISPRO 300 UNITS/3 ML VIAL SQ SCH ×4 (08:09→22:01)
[2017-03-06 08:44] LABS: Calcium 8.9 mg/dL (8.6-10.8); Potassium 4.5 mEq/L (3.5-4.5)
[2017-03-06] MEDS: Insulin DETEMIR 100 UNIT/ML X5UNITS SQ SCH ×2 (09:11→21:59)
--- NOTE | 2017-03-06 11:19 | Internal Med Progress Note ---
Date of Encounter: 03/06/17 Time of Encounter: 11:17 - Assessment and plan (1) Acute respiratory failure with hypoxia Current Visit: No Status: Acute Assessment and plan: Likely secondary to COPD exacerbation continue systemic steroids and bronchodilator support. Decreased methylprednisolone to 40mg IV q12h O2 supplementation as needed O2 sat goal: 89-92% bipap support as needed (2) Acute exacerbation of chronic obstructive airways disease Current Visit: Yes Status: Acute (3) DKA (diabetic ketoacidosis) Current Visit: Yes Status: Resolved Assessment and plan: Resolved at this time continue home insulin regimen in addition to the sliding scale insulin algorithm monitor FS and BG closely Qualifiers: Diabetes mellitus type: type 2 Diabetes mellitus complication detail: without coma Qualified Code(s): E13.10 - Other specified diabetes mellitus with ketoacidosis without coma (4) Chronic diastolic CHF (congestive heart failure) Current Visit: No Status: Chronic Assessment and plan: will continue IV diuresis 2D echo from April 2016 reported LVEF of 60% with mild LVH, mild LV diastolic dysfunction monitor I/Os, daily weights O2 supplementation as needed f/u repeat 2D echo (5) DVT prophylaxis Current Visit: No Status: Acute Assessment and plan: Heparin SQ (6) Coronary artery disease Current Visit: No Status: Chronic Assessment and plan: no signs of angina present at this time continue home meds Qualifiers: Coronary Disease-Associated Artery/Lesion type: [place] artery [place] vs. transplanted heart: [place] heart Associated angina: without angina Qualified Code(s): I25.10 - Atherosclerotic heart disease of [place] coronary artery without angina pectoris (7) HTN (hypertension) Current Visit: Yes Status: Chronic Assessment and plan: BP within acceptable range continue home meds Qualifiers: Hypertension type: essential hypertension Qualified Code(s): I10 - Essential (primary) hypertension (8) CKD stage 3 due to type 2 diabetes mellitus Current Visit: No Status: Chronic Assessment and plan: renal function at baseline will closely monitor (9) Goals of care, counseling/discussion Current Visit: Yes Status: Acute Assessment and plan: Palliative care consultation appreciated patient wishes to be DNR/DNI - Subjective Interval history: Patient is an 86y/o male admitted for acute respiratory distress secondary to COPD exacerbation and was found to have DKA yesterday. Patient seen and examined with family present at bedside. Resting comfortably in bed and reports of feeling better compared to previous day. BG better controlled, AG closed. pt tolerating PO intake well. No overnight issues reported. - Constitutional Vitals: Temp Pulse Resp BP Pulse Ox 98.2 F 72 18 135/77 96 03/06/17 11:08 03/06/17 11:08 03/06/17 11:08 03/06/17 11:08 03/06/17 11:08 General appearance: Present: cooperative, A&O X 3, morbidly obese, pleasant, no acute distress, answers questions appropriately - Head Head exam: Present: atraumatic, normocephalic - Eye Eye exam: Present: normal appearance, conjuntiva pink, sclera anicteric - Respiratory Respiratory exam: Present: rales (bilaterally). Absent: respiratory distress, wheezes - Cardiovascular Cardiovascular exam: Present: RRR, +S1, +S2. Absent: diastolic murmur, gallop, rubs, systolic murmur - GI/Abdominal GI/Abdominal exam: Present: distended (obese), normal bowel sounds, soft. Absent: tenderness - Extremities Exam Extremities exam: Present: pedal edema (mild pedal edema bilaterally), warm, radial pulses palpable and symetrical. Absent: calf tenderness - Neurological Exam Neurological exam: Present: alert, oriented X3 - Psychiatric Psychiatric exam: Present: normal affect, normal mood Internal Medicine: Result - Labs CBC & Chem 7: 03/06/17 01:05 03/06/17 08:09 Labs: Short CBC 03/06/17 Range/Units 01:05 WBC 15.1 H D (4.3-11.1) K/mcL Hgb 11.6 L (12.9-16.9) g/dL Hct 37.1 L (37.5-50.1) % Plt Count 300 (140-400) K/mcL Neutrophils # 13.4 H (1.6-8.9) K/mcL BMP 03/05/17 03/05/17 03/05/17 12:22 14:50 20:52 Sodium 133 L 134 L 137 Potassium 4.6 H 4.5 4.1 Chloride 100 100 102 Carbon Dioxide 17 L 20 23 BUN 35 H 38 H 42 H Creatinine 2.34 H 2.39 H 2.26 H Glucose 498 H 409 H 113 H Calcium 8.9 9.2 9.4 03/06/17 03/06/17 01:05 08:09 Sodium 135 L 135 L Potassium 5.0 H 4.5 Chloride 102 103 Carbon Dioxide 18 L 22 BUN 44 H 47 H Creatinine 2.31 H 2.15 H Glucose 282 H 256 H Calcium 9.1 8.9 Liver Function 03/05/17 03/05/17 03/06/17 Range/Units 14:50 20:52 01:05 Total Bilirubin 0.6 0.6 0.5 (0.2-1.2) mg/dL AST 13 15 27 (5-34) Units/L ALT 13 14 13 (0-55) Units/L Alkaline Phosphatase 78 77 70 (38-126) Units/L Albumin 3.3 L 3.5 3.3 L (3.5-5.0) g/dL - ABG Interpretation ABG results: ABG ABG pH 7.44 pH Units (7.32-7.45) 03/05/17 20:13 ABG pCO2 37 mmHg (35-45) 03/05/17 20:13 ABG pO2 75 mmHg (85-104) L 03/05/17 20:13 ABG O2 Saturation 95 % (95-98) 03/05/17 20:13 PT/INR, D-dimer PT 11.3 Seconds (9.4-12.1) 03/04/17 17:50 Consult Discharge Plan - Plan Referrals: Lio Gold CNP [Primary Care Provider] -
[2017-03-06] MEDS: Budesonide/Formoterol 160/4.5 MDI IH SCH ×2 (11:52→23:47)
[2017-03-06] MEDS: MethylPREDNISolone 40 MG/ML VIAL IVP SCH (17:17)
[2017-03-07] MEDS: Ipratropium/Albuterol Neb 3 ML IH SCH ×4 (04:31→23:14)
[2017-03-07] MEDS: *HR* Heparin 5,000 UNIT/ML VIAL SQ SCH ×2 (05:39→17:40)
[2017-03-07] MEDS: MethylPREDNISolone 40 MG/ML VIAL IVP SCH ×2 (05:39→17:40)
[2017-03-07 08:39] LABS: Calcium 9.5 mg/dL (8.6-10.8); Magnesium 2.2 mg/dL (1.6-2.6); Phosphorous 3.6 mg/dL (2.3-4.7); Potassium 4.3 mEq/L (3.5-4.5)
[2017-03-07] MEDS: Isosorbide MONOnitrate (24 HR) 30 MG TAB.ER.24H PO SCH (08:47)
[2017-03-07] MEDS: Sennosides/Docusate Sodium TABLET PO SCH (08:48)
[2017-03-07] MEDS: Cholecalciferol (D-3) 1,000 UNIT TABLET PO SCH (08:48)
[2017-03-07] MEDS: Aspirin 81 MG TAB.CHEW PO SCH (08:48)
[2017-03-07] MEDS: Insulin LISPRO 300 UNITS/3 ML VIAL SQ SCH ×7 (08:49→20:46)
[2017-03-07] MEDS: Furosemide 40 MG/4 ML VIAL IVP SCH (08:50)
[2017-03-07] MEDS: Insulin DETEMIR 100 UNIT/ML X5UNITS SQ SCH ×2 (09:00→09:11)
[2017-03-07 09:20] LABS: Basophils % 0.1 %; Hematocrit 42.8 % (37.5-50.1); Immature Granulocytes % 0.7 % (0-4); Lymphocytes # 0.9 K/mcL (0.6-4.6); Lymphocytes % 5.6 %; Mean Corpuscular HGB Conc 31.5 g/dL (31.6-35.5); Mean Corpuscular Hemoglobin 25.3 pg (28.0-33.3); Mean Corpuscular Volume 80.3 fL (83.0-100.0); Mean Platelet Volume 11.4 fL (9.4-12.4); Monocytes # 0.4 K/mcL (0.0-1.3); Monocytes % 2.6 %; Platelet Count 336 K/mcL (140-400); Red Blood Count 5.33 M/mcL (4.19-5.50); Red Cell Distribution Width 20.1 % (11.5-14.5)
[2017-03-07 09:22] LABS: Hemoglobin 13.5 g/dL (12.9-16.9)
--- NOTE | 2017-03-07 09:58 | Discharge Summary ---
Date of Encounter: 03/07/17 - Discharge Diagnosis (1) Acute respiratory failure with hypoxia Status: Acute (2) Acute exacerbation of chronic obstructive airways disease Status: Acute (3) DKA (diabetic ketoacidosis) Status: Resolved Qualifiers: Diabetes mellitus type: type 2 Diabetes mellitus complication detail: without coma Qualified Code(s): E13.10 - Other specified diabetes mellitus with ketoacidosis without coma (4) Chronic diastolic CHF (congestive heart failure) Status: Chronic (5) DVT prophylaxis Status: Acute (6) Coronary artery disease Status: Chronic Qualifiers: Coronary Disease-Associated Artery/Lesion type: [place] artery [place] vs. transplanted heart: [place] heart Associated angina: without angina Qualified Code(s): I25.10 - Atherosclerotic heart disease of [place] coronary artery without angina pectoris (7) HTN (hypertension) Status: Chronic Qualifiers: Hypertension type: essential hypertension Qualified Code(s): I10 - Essential (primary) hypertension (8) CKD stage 3 due to type 2 diabetes mellitus Status: Chronic (9) Goals of care, counseling/discussion Status: Acute - Discharge Medications Home Medications: Allopurinol [Zyloprim] 100 mg PO DAILY 05/13/15 [History] Aspirin 81 mg PO DAILY 05/13/15 [History] Cholecalciferol (Vitamin D3) [Vitamin D3] 5,000 mg PO DAILY 05/13/15 [History] Losartan [Cozaar] 25 mg PO DAILY 05/13/15 [History] Pantoprazole [Protonix] 40 mg PO DAILY 05/13/15 [History] Sertraline HCl [Zoloft] 25 mg PO HS 05/13/15 [History] Simvastatin [Zocor] 20 mg PO HS 05/13/15 [History] Vitamin E 400 unit PO DAILY 05/13/15 [History] Nitroglycerin 0.4 mg SL Q5MIN PRN #10 tab.subl 05/14/15 [Rx] Levothyroxine [Synthroid] 50 mcg PO DAILY 11/29/15 [History] Ranitidine HCl [Zantac] 150 mg PO HS 12/12/15 [History] Insulin LISPRO [Humalog] 20 unit SQ 1200 04/27/16 [History] Insulin LISPRO [Humalog] 20 unit SQ QAM 04/27/16 [History] Insulin LISPRO [Humalog] 25 unit SQ QPM 04/27/16 [History] Isosorbide MONOnitrate (24 HR) [Imdur] 30 mg PO DAILY #30 tab.er.24h 04/29/16 [ Rx] Metoprolol Tartrate [Lopressor] 50 mg PO BID #60 tablet 04/29/16 [Rx] Albuterol Sulfate [Albuterol Inhaler] 2 puff IH Q4H PRN 30 Days 10/21/16 [Rx] Budesonide/Formoterol 160/4.5 [Symbicort 160/4.5] 2 puff IH BIDR #1 inhaler 03/30 [Rx] Furosemide [Lasix] 40 mg PO DAILY PRN 10/21/16 [History] Ferrous Gluconate 324 mg PO DAILY 01/12/17 [History] Sennosides/Docusate Sodium [Senna Plus] 1 each PO DAILY 01/12/17 [History] Glucagon, Human Recombinant [Glucagen] 1 mg IM ONCE PRN #0 vial 02/05/17 [Rx] Insulin DETEMIR [Levemir] 45 unit SQ BID [id number] 02/05/17 [Rx] Arformoterol Tartrate [Brovana] 15 mcg IH BID 03/04/17 [History] Budesonide Neb [Pulmicort Neb] 0.5 mg IH BID 03/04/17 [History] Hydrocortisone 2.5% CREAM [Cortaid] 1 appl TP BID 03/04/17 [History] Allergies/Adverse Reactions: Allergies morphine Allergy (Verified 01/12/17 20:47) Rash Procedures/tests Complete & Pending: Procedures Performed prior 72 hours Category Date Time Status EV echocardiogram w enhance Routine Y 03/05/17 14:58 Completed Date of admission: 03/04/17 19:24 Primary care physician: Lio Gold CNP Consults: 03/04/17 19:30 Consult to Nurse Navigator [CONS] Routine Comment: 03/04/17 21:08 Consult to Palliative Care [CONS] Routine Comment: Consulting Provider: Palliative Care Paige Reason for Consult: chf, DNR/DNI status Call Completed: No - Patient Status Condition: Fair - Discharge Instructions Follow Up With: Lio Gold CNP [Primary Care Provider] - Hospital course: Mr. Colon is a 86 year old male - Time Spent with Patient Total time spent providing and/or coordinating discharge services: - Constitutional Vitals: Temp Pulse Resp BP Pulse Ox 99.0 F 88 18 167/104 96 03/07/17 09:09 03/07/17 09:09 03/07/17 09:09 03/07/17 09:09 03/07/17 09:09 General appearance: Present: cooperative, A&O X 3, morbidly obese, pleasant, no acute distress, answers questions appropriately
--- NOTE | 2017-03-07 10:13 | Internal Med Progress Note ---
Date of Encounter: 03/07/17 Time of Encounter: 10:06 - Assessment and plan (1) Acute respiratory failure with hypoxia Current Visit: No Status: Acute Assessment and plan: Likely secondary to COPD exacerbation continue systemic steroids and bronchodilator support. Decreased methylprednisolone to 40mg IV q12h will start Prednisone 40mg qd in am O2 supplementation as needed O2 sat goal: 89-92% bipap support as needed (2) Acute exacerbation of chronic obstructive airways disease Current Visit: Yes Status: Acute Assessment and plan: as listed above (3) DKA (diabetic ketoacidosis) Current Visit: Yes Status: Resolved Assessment and plan: noted to have mild AG with hyperglycemia will start IV fluid and insulin therapy closely monitor accuchecks repeat BP increased Levemir to 55units BID and added humalog 6units TIDWM continue sliding scale insulin Qualifiers: Diabetes mellitus type: type 2 Diabetes mellitus complication detail: without coma Qualified Code(s): E13.10 - Other specified diabetes mellitus with ketoacidosis without coma (4) Chronic diastolic CHF (congestive heart failure) Current Visit: No Status: Chronic Assessment and plan: will continue IV diuresis 2D echo from April 2016 reported LVEF of 60% with mild LVH, mild LV diastolic dysfunction monitor I/Os, daily weights O2 supplementation as needed f/u repeat 2D echo (5) DVT prophylaxis Current Visit: No Status: Acute Assessment and plan: Heparin SQ (6) Coronary artery disease Current Visit: No Status: Chronic Assessment and plan: no signs of angina present at this time continue home meds Qualifiers: Coronary Disease-Associated Artery/Lesion type: [place] artery [place] vs. transplanted heart: [place] heart Associated angina: without angina Qualified Code(s): I25.10 - Atherosclerotic heart disease of [place] coronary artery without angina pectoris (7) HTN (hypertension) Current Visit: Yes Status: Chronic Assessment and plan: BP within acceptable range continue home meds Hydralazine 10mg IVP q6h SBP>150 Qualifiers: Hypertension type: essential hypertension Qualified Code(s): I10 - Essential (primary) hypertension (8) CKD stage 3 due to type 2 diabetes mellitus Current Visit: No Status: Chronic Assessment and plan: renal function at baseline will closely monitor (9) Goals of care, counseling/discussion Current Visit: Yes Status: Acute Assessment and plan: Palliative care consultation appreciated patient wishes to be DNR/DNI - Subjective Interval history: Patient is an 86y/o male admitted for acute respiratory distress secondary to COPD exacerbation and was found to have DKA yesterday. Patient seen and examined with family present at bedside. As per son, patient has been having hallucinations and seeing things on the wall however patient has remained calm and not agitated. He denies any hallucinations at this time. He was noted to be hyperglycemic this morning with a mild AG of 15. Will start IV fluids given his BG is in the 200s, continue sliding scale insulin algorithm. added humalog 6units TIDWM, increased Levemir to 55units BID D/c pending better control of BG - Constitutional Vitals: Temp Pulse Resp BP Pulse Ox 99.0 F 88 18 167/104 96 03/07/17 09:09 03/07/17 09:09 03/07/17 09:09 03/07/17 09:09 03/07/17 09:09 General appearance: Present: cooperative, A&O X 3, morbidly obese, pleasant, no acute distress, answers questions appropriately - Head Head exam: Present: atraumatic, normocephalic - Eye Eye exam: Present: conjuntiva pink, sclera anicteric - Respiratory Respiratory exam: Absent: respiratory distress, wheezes - Cardiovascular Cardiovascular exam: Present: RRR, +S1, +S2 - GI/Abdominal GI/Abdominal exam: Present: normal bowel sounds, soft. Absent: tenderness - Extremities Exam Extremities exam: Present: pedal edema, warm, radial pulses palpable and symetrical. Absent: calf tenderness - Neurological Exam Neurological exam: Present: alert, oriented X3 - Psychiatric Psychiatric exam: Present: normal affect, normal mood Internal Medicine: Result - Labs CBC & Chem 7: 03/07/17 09:09 03/07/17 08:17 Labs: Short CBC 03/07/17 Range/Units 09:09 WBC 16.5 H (4.3-11.1) K/mcL Hgb 13.5 D (12.9-16.9) g/dL Hct 42.8 (37.5-50.1) % Plt Count 336 (140-400) K/mcL Neutrophils # 15.0 H (1.6-8.9) K/mcL BMP 03/07/17 08:17 Sodium 138 Potassium 4.3 Chloride 104 Carbon Dioxide 19 BUN 56 H Creatinine 2.19 H Glucose 201 H Calcium 9.5 - ABG Interpretation ABG results: ABG ABG pH 7.44 pH Units (7.32-7.45) 03/05/17 20:13 ABG pCO2 37 mmHg (35-45) 03/05/17 20:13 ABG pO2 75 mmHg (85-104) L 03/05/17 20:13 ABG O2 Saturation 95 % (95-98) 03/05/17 20:13 PT/INR, D-dimer PT 11.3 Seconds (9.4-12.1) 03/04/17 17:50 Consult Discharge Plan - Plan Referrals: Lio Gold, [employer] BUILDER HELPER [Primary Care Provider] -
[2017-03-07] MEDS ORDERED: 0.9 % Sodium Chloride 250 ML IVC SCH (10:15)
[2017-03-07] MEDS: Budesonide/Formoterol 160/4.5 MDI IH SCH ×2 (10:35→23:14)
[2017-03-07 12:21] LABS: Calcium 9.3 mg/dL (8.6-10.8)
[2017-03-07 15:00] LABS: Calcium 9.4 mg/dL (8.6-10.8); Potassium 4.5 mEq/L (3.5-4.5)
[2017-03-07] MEDS: Famotidine 20 MG TABLET PO SCH (20:44)
[2017-03-08] MEDS: Ipratropium/Albuterol Neb 3 ML IH SCH ×2 (04:30→11:16)
[2017-03-08 05:04] LABS: Basophils % 0.1 %; Hematocrit 41.4 % (37.5-50.1); Immature Granulocytes % 0.6 % (0-4); Lymphocytes # 1.7 K/mcL (0.6-4.6); Mean Corpuscular HGB Conc 31.4 g/dL (31.6-35.5); Mean Corpuscular Hemoglobin 25.2 pg (28.0-33.3); Mean Corpuscular Volume 80.4 fL (83.0-100.0); Mean Platelet Volume 11.1 fL (9.4-12.4); Monocytes # 0.8 K/mcL (0.0-1.3); Monocytes % 5.3 %; Neutrophils # 11.6 K/mcL (1.6-8.9); Platelet Count 324 K/mcL (140-400); Red Blood Count 5.15 M/mcL (4.19-5.50)
[2017-03-08 07:44] LABS: Calcium 9.5 mg/dL (8.6-10.8); Magnesium 2.4 mg/dL (1.6-2.6); Phosphorous 4.3 mg/dL (2.3-4.7); Potassium 4.6 mEq/L (3.5-4.5)
[2017-03-08] MEDS ORDERED: Furosemide 40 MG TABLET PO SCH (08:00)
[2017-03-08] MEDS: Insulin DETEMIR 100 UNIT/ML X5UNITS SQ SCH ×2 (08:03→09:35)
[2017-03-08] MEDS ORDERED: predniSONE 20 MG TABLET PO SCH (09:00)
[2017-03-08] MEDS: Insulin LISPRO 300 UNITS/3 ML VIAL SQ SCH ×4 (09:24→12:22)
[2017-03-08] MEDS: Cholecalciferol (D-3) 1,000 UNIT TABLET PO SCH (09:34)
[2017-03-08] MEDS: Isosorbide MONOnitrate (24 HR) 30 MG TAB.ER.24H PO SCH (09:34)
[2017-03-08] MEDS: Aspirin 81 MG TAB.CHEW PO SCH (09:34)
[2017-03-08] MEDS: Sennosides/Docusate Sodium TABLET PO SCH (09:35)
[2017-03-08] MEDS: *HR* Heparin 5,000 UNIT/ML VIAL SQ SCH (09:35)
--- NOTE | 2017-03-08 10:00 | Discharge Summary ---
Date of Encounter: 03/08/17 Time of Encounter: 09:30 - Discharge Diagnosis (1) Acute respiratory failure with hypoxia Priority: Primary Status: Acute (2) Acute exacerbation of chronic obstructive airways disease Priority: Primary Status: Acute (3) DKA (diabetic ketoacidosis) Priority: Secondary Status: Resolved Qualifiers: Diabetes mellitus type: type 2 Diabetes mellitus complication detail: without coma Qualified Code(s): E13.10 - Other specified diabetes mellitus with ketoacidosis without coma (4) Chronic diastolic CHF (congestive heart failure) Priority: Secondary Status: Chronic (5) DVT prophylaxis Priority: Secondary Status: Acute (6) Coronary artery disease Priority: Secondary Status: Chronic Qualifiers: Coronary Disease-Associated Artery/Lesion type: [place] artery [place] vs. transplanted heart: [place] heart Associated angina: without angina Qualified Code(s): I25.10 - Atherosclerotic heart disease of [place] coronary artery without angina pectoris (7) HTN (hypertension) Priority: Secondary Status: Chronic Qualifiers: Hypertension type: essential hypertension Qualified Code(s): I10 - Essential (primary) hypertension (8) CKD stage 3 due to type 2 diabetes mellitus Priority: Secondary Status: Chronic (9) Goals of care, counseling/discussion Priority: Secondary Status: Acute - Discharge Medications Prescriptions: Furosemide [Lasix] 40 mg PO DAILY #30 tablet predniSONE [PredniSONE] 40 mg PO DAILY #6 tablet Home Medications: Allopurinol [Zyloprim] 100 mg PO DAILY 05/13/15 [History] Aspirin 81 mg PO DAILY 05/13/15 [History] Cholecalciferol (Vitamin D3) [Vitamin D3] 5,000 mg PO DAILY 05/13/15 [History] Losartan [Cozaar] 25 mg PO DAILY 05/13/15 [History] Pantoprazole [Protonix] 40 mg PO DAILY 05/13/15 [History] Sertraline HCl [Zoloft] 25 mg PO HS 05/13/15 [History] Simvastatin [Zocor] 20 mg PO HS 05/13/15 [History] Vitamin E 400 unit PO DAILY 05/13/15 [History] Nitroglycerin 0.4 mg SL Q5MIN PRN #10 tab.subl 05/14/15 [Rx] Levothyroxine [Synthroid] 50 mcg PO DAILY 11/29/15 [History] Ranitidine HCl [Zantac] 150 mg PO HS 12/12/15 [History] Insulin LISPRO [Humalog] 20 unit SQ 1200 04/27/16 [History] Insulin LISPRO [Humalog] 20 unit SQ QAM 04/27/16 [History] Insulin LISPRO [Humalog] 25 unit SQ QPM 04/27/16 [History] Isosorbide MONOnitrate (24 HR) [Imdur] 30 mg PO DAILY #30 tab.er.24h 04/29/16 [ Rx] Metoprolol Tartrate [Lopressor] 50 mg PO BID #60 tablet 04/29/16 [Rx] Albuterol Sulfate [Albuterol Inhaler] 2 puff IH Q4H PRN 30 Days 10/21/16 [Rx] Budesonide/Formoterol 160/4.5 [Symbicort 160/4.5] 2 puff IH BIDR #1 inhaler 03/30 [Rx] Ferrous Gluconate 324 mg PO DAILY 01/12/17 [History] Sennosides/Docusate Sodium [Senna Plus] 1 each PO DAILY 01/12/17 [History] Glucagon, Human Recombinant [Glucagen] 1 mg IM ONCE PRN #0 vial 02/05/17 [Rx] Arformoterol Tartrate [Brovana] 15 mcg IH BID 03/04/17 [History] Budesonide Neb [Pulmicort Neb] 0.5 mg IH BID 03/04/17 [History] Hydrocortisone 2.5% CREAM [Cortaid] 1 appl TP BID 03/04/17 [History] Furosemide [Lasix] 40 mg PO DAILY #30 tablet 03/08/17 [Rx] Insulin DETEMIR [Levemir] 55 unit SQ BID #0 [id number] 03/08/17 [Rx] predniSONE [PredniSONE] 40 mg PO DAILY #6 tablet 03/08/17 [Rx] Allergies/Adverse Reactions: Allergies morphine Allergy (Verified 01/12/17 20:47) Rash Procedures/tests Complete & Pending: Procedures Performed prior 72 hours Category Date Time Status EV echocardiogram w enhance Routine Y 03/05/17 14:58 Completed Date of admission: 03/04/17 19:24 Primary care physician: Lio Gold CNP Consults: 03/04/17 19:30 Consult to Nurse Navigator [CONS] Routine Comment: 03/04/17 21:08 Consult to Palliative Care [CONS] Routine Comment: Consulting Provider: Palliative Care Paige Reason for Consult: chf, DNR/DNI status Call Completed: No Discharging clinician: Brianna Nicole Anticipated date of discharge: 03/08/17 - Patient Status Disposition: Home Health Service Condition: Good Functional capacity at discharge: uses cane/walker Overall status at discharge: patient is back to baseline - Discharge Instructions Follow Up With: Lio Gold CNP [Primary Care Provider] - Additional Instructions: Please follow up with your primary care physician within five days after your discharge from the hospital. Please follow up with your chef assistant within one week after your discharge from the hospital. Please speak to your primary care physician about your Lasix dosages, as your kidney function remained unchanged despite you receiving aggressive IV diuretic therapy while you were hospitalized. Please continue to take Lasix 40mg once a day. If you are noted to have worsening of pedal edema, please take an additional dose of Lasix given your SBP >120. Please closely monitor your blood glucose at home. Monitor your fingerstick glucose at fasting, premeals, and at bedtime. While you are on Prednisone therapy, increase your home dose of Levemir to 55units twice a day. Closely monitor your fingerstick glucose. Your goal BG levels are Fasting: below 140, Post-prandial (2 hours after meals): below 180. If you are noted to have low BG levels (below 100), call your primary care doctor and cut your Levemir dose in half. Resume home dose of Levemir 45units twice a day once you are done with Prednisone therapy. Please take Prednisone 40mg once a day for 6 more days. Resume all other medications as prescribed by your primary care physician. - Diet and Activity Activity: wear oxygen at all times Diet: diabetic diet, low salt diet Hospital course: Mr. Colon is a 86 year old male with PMH of CHF, COPD on LTOT, CAD, HTN, HLD CKD who was admitted for management of COPD exacerbation. He was started on empiric IV steroid therapy and bronchodilator support. His hospital course was complicated by hyperglycemia and DKA. He was started on insulin drip and DKA resolved. His home insulin dose was adjusted as per his insulin requirements. He was evaluated by physical therapy and no further therapy was recommended. As per son's patient lives alone, drives, and is independent. He lives next door to his sons so he has support throughout the day. He also has home health services. At this time patient is hemodynamically stable and will be discharged to home with follow up with his primary care physician and cardiology. Patient and his son demonstrate understanding of his diagnosis and agree with the discharge care and plan. - Time Spent with Patient Total time spent providing and/or coordinating discharge services: Greater than 30 minutes - Constitutional Vitals: Temp Pulse Resp BP Pulse Ox 98.0 F 72 18 163/87 93 03/08/17 07:44 03/07/17 15:06 03/08/17 07:44 03/08/17 07:44 03/08/17 07:44 General appearance: Present: cooperative, A&O X 3, morbidly obese, pleasant, no acute distress, answers questions appropriately - Head Head exam: Present: atraumatic, normocephalic - Eye Eye exam: Present: normal appearance, conjuntiva pink, sclera anicteric - Respiratory Respiratory exam: Absent: respiratory distress, wheezes - Cardiovascular Cardiovascular exam: Present: RRR, +S1, +S2. Absent: diastolic murmur, gallop, rubs, systolic murmur - GI/Abdominal GI/Abdominal exam: Present: normal bowel sounds, soft, no peritoneal signs. Absent: distended, tenderness - Extremities Exam Extremities exam: Present: warm, radial pulses palpable and symetrical. Absent : calf tenderness - Neurological Exam Neurological exam: Present: alert, oriented X3 - Psychiatric Psychiatric exam: Present: normal affect, normal mood
--- NOTE | 2017-03-08 10:12 | Physician Discharge Referral ---
Home Health/Hosp Referral Info Transfer to: Home Health Provider in Charge Post Discharge: PCP - Diagnosis (1) Acute respiratory failure with hypoxia Priority: Primary Status: Acute (2) Acute exacerbation of chronic obstructive airways disease Priority: Primary Status: Acute (3) DKA (diabetic ketoacidosis) Status: Resolved (4) Chronic diastolic CHF (congestive heart failure) Priority: Secondary Status: Chronic (5) DVT prophylaxis Priority: Secondary Status: Acute (6) Coronary artery disease Priority: Secondary Status: Chronic (7) HTN (hypertension) Priority: Secondary Status: Chronic (8) CKD stage 3 due to type 2 diabetes mellitus Priority: Secondary Status: Chronic (9) Goals of care, counseling/discussion Priority: Secondary Status: Acute - Respiratory Orders Smoking Cessation: Smoking cessation has been advised. For more information, call the [place] Tobacco Quit Line at 1-328-CWJG-NOW. - Services Needed Following services are medically necessary services: Nursing, Home Health Aide, Physical Therapy, Occupational Therapy - Transfer Medications Prescriptions: Furosemide [Lasix] 40 mg PO DAILY #30 tablet predniSONE [PredniSONE] 40 mg PO DAILY #6 tablet Home Medications: Allopurinol [Zyloprim] 100 mg PO DAILY 05/13/15 [History] Aspirin 81 mg PO DAILY 05/13/15 [History] Cholecalciferol (Vitamin D3) [Vitamin D3] 5,000 mg PO DAILY 05/13/15 [History] Losartan [Cozaar] 25 mg PO DAILY 05/13/15 [History] Pantoprazole [Protonix] 40 mg PO DAILY 05/13/15 [History] Sertraline HCl [Zoloft] 25 mg PO HS 05/13/15 [History] Simvastatin [Zocor] 20 mg PO HS 05/13/15 [History] Vitamin E 400 unit PO DAILY 05/13/15 [History] Nitroglycerin 0.4 mg SL Q5MIN PRN #10 tab.subl 05/14/15 [Rx] Levothyroxine [Synthroid] 50 mcg PO DAILY 11/29/15 [History] Ranitidine HCl [Zantac] 150 mg PO HS 12/12/15 [History] Insulin LISPRO [Humalog] 20 unit SQ 1200 04/27/16 [History] Insulin LISPRO [Humalog] 20 unit SQ QAM 04/27/16 [History] Insulin LISPRO [Humalog] 25 unit SQ QPM 04/27/16 [History] Isosorbide MONOnitrate (24 HR) [Imdur] 30 mg PO DAILY #30 tab.er.24h 04/29/16 [ Rx] Metoprolol Tartrate [Lopressor] 50 mg PO BID #60 tablet 04/29/16 [Rx] Albuterol Sulfate [Albuterol Inhaler] 2 puff IH Q4H PRN 30 Days 10/21/16 [Rx] Budesonide/Formoterol 160/4.5 [Symbicort 160/4.5] 2 puff IH BIDR #1 inhaler 03/30 [Rx] Ferrous Gluconate 324 mg PO DAILY 01/12/17 [History] Sennosides/Docusate Sodium [Senna Plus] 1 each PO DAILY 01/12/17 [History] Glucagon, Human Recombinant [Glucagen] 1 mg IM ONCE PRN #0 vial 02/05/17 [Rx] Arformoterol Tartrate [Brovana] 15 mcg IH BID 03/04/17 [History] Budesonide Neb [Pulmicort Neb] 0.5 mg IH BID 03/04/17 [History] Hydrocortisone 2.5% CREAM [Cortaid] 1 appl TP BID 03/04/17 [History] Furosemide [Lasix] 40 mg PO DAILY #30 tablet 03/08/17 [Rx] Insulin DETEMIR [Levemir] 55 unit SQ BID #0 [id number] 03/08/17 [Rx] predniSONE [PredniSONE] 40 mg PO DAILY #6 tablet 03/08/17 [Rx] Allergies/Adverse Reactions: Allergies morphine Allergy (Verified 01/12/17 20:47) Rash Certification: Further, I certify that my clinical findings support that this patient is homebound (i.e. absences from home require considerable and taxing effort and are for medical reasons or catholic services or infrequently or short duration when for other reasons) because: Homebound Reason: Patient requires assistance of a person or device to safely leave home Attestation: My signature below is to certify that this patient is under my care and that I, or nurse practitioner, or a physician's logistics assistant working with me, has a face-to -face encounter with this patient.
[2017-03-08] MEDS: Budesonide/Formoterol 160/4.5 MDI IH SCH (11:16)
[2017-03-08 11:41] VITALS: BP 138/76
== END 2017-03-08 12:57 | disposition home health service (06) | DRG 291 ==
LOC: EMEROO 17:14 → 3BNU 17:14 → 2NNU 03-05 14:31
PROVIDERS: ADMIT Registered Nurse; ATTEND Registered Nurse

== ENCOUNTER 2017-03-12 21:50 | Inpatient (IN) ==
--- NOTE | 2017-03-12 22:16 | Emergency Department Note ---
Disposition Clinical Impression: Hospital-acquired pneumonia, Weakness Disposition: Admitted As Inpatient General Adult HPI - General Chief complaint: ED Weakness Stated complaint: Low O2, Elevated glucose, weakness Time Seen by Provider: 03/12/17 21:59 Source: patient, family Limitations: no limitations Nursing Notes Reviewed: Yes Vital Signs Reviewed: Yes - History of Present Illness HPI Narrative: Mr. Colon, 86-year-old male, presents from home via POV with son at bedside. Concern is for shortness of breath with increasing weakness. Onset this morning. Patient does not use regular oxygen at home however he does have oxygen at home for use as needed. Patient reportedly had pulse oxygen saturation of 82% at home. He was seen by his primary care physician today where intake possible oxygenation was in the middle to low 90s. His symptoms persisted thus his presentation to the emergency department. Patient was recently discharged from this facility 5 days ago for evaluation of DKA. Patient has multiple comorbidities including ACS with stents, congestive heart failure, history of PE, COPD, CKD stage IV, insulin-dependent diabetes, hypertension, hyperlipidemia. Pain Scale: 0 - Related Data Home Medications Medication Instructions Recorded Confirmed Allopurinol [Zyloprim] 100 mg PO DAILY 05/13/15 03/13/17 Aspirin 81 mg PO DAILY 05/13/15 03/13/17 Cholecalciferol (Vitamin D3) 5,000 mg PO DAILY 05/13/15 03/13/17 [Vitamin D3] Losartan [Cozaar] 25 mg PO DAILY 05/13/15 03/13/17 Pantoprazole [Protonix] 40 mg PO DAILY 05/13/15 03/13/17 Sertraline HCl [Zoloft] 25 mg PO HS 05/13/15 03/13/17 Simvastatin [Zocor] 20 mg PO HS 05/13/15 03/13/17 Vitamin E 400 unit PO DAILY 05/13/15 03/13/17 Levothyroxine [Synthroid] 50 mcg PO DAILY 11/29/15 03/13/17 Ranitidine HCl [Zantac] 150 mg PO HS 12/12/15 03/13/17 Insulin LISPRO [Humalog] 20 unit SQ 1200 04/27/16 03/13/17 Insulin LISPRO [Humalog] 20 unit SQ QAM 04/27/16 03/13/17 Insulin LISPRO [Humalog] 25 unit SQ QPM 04/27/16 03/13/17 Ferrous Gluconate 324 mg PO DAILY 01/12/17 03/13/17 Sennosides/Docusate Sodium [Senna 1 each PO DAILY 01/12/17 03/13/17 Plus] Arformoterol Tartrate [Brovana] 15 mcg IH BID 03/04/17 03/13/17 Budesonide Neb [Pulmicort Neb] 0.5 mg IH BID 03/04/17 03/13/17 Hydrocortisone 2.5% CREAM [Cortaid] 1 appl TP BID 03/04/17 03/13/17 Previous Rx's Medication Instructions Recorded Nitroglycerin 0.4 mg SL Q5MIN PRN #10 tab.subl 05/14/15 Isosorbide MONOnitrate (24 HR) 30 mg PO DAILY #30 tab.er.24h 04/29/16 [Imdur] Metoprolol Tartrate [Lopressor] 50 mg PO BID #60 tablet 04/29/16 Albuterol Sulfate [Albuterol 2 puff IH Q4H PRN 30 Days 10/21/16 Inhaler] Budesonide/Formoterol 160/4.5 2 puff IH BIDR #1 inhaler 10/21/16 [Symbicort 160/4.5] Glucagon, Human Recombinant 1 mg IM ONCE PRN #0 vial 02/05/17 [Glucagen] Furosemide [Lasix] 40 mg PO DAILY #30 tablet 03/08/17 Insulin DETEMIR [Levemir] 55 unit SQ BID #0 [id number] 03/08/17 Allergies Allergy/AdvReac Type Severity Reaction Status Date / Time morphine Allergy Rash Verified 01/12/17 20:47 All systems ED: reviewed and negative except as stated. Past Medical History - Past Medical History Medical history: Reports: CHF, COPD, coronary artery disease, DVT, diabetes, hyperlipidemia, hypertension, myocardial infarction, pulmonary embolus, renal disease Surgical history: Reports: cholecystectomy, herniorrhaphy, other, IVC Filter Psychiatric history: Reports: no psych history - Social History Smoking Status: Former smoker Smokeless Tobacco Status: No Alcohol use: Reports: none Drug use: Reports: none Physical Exam Vital Signs Reviewed General: Patient is alert, oriented, and in no acute distress. He is breathing comfortably on 2.5 L supple oxygen via nasal cannula. He is very hard of hearing but does respond appropriately. HEENT: No facial asymmetry. Head is normocephalic and atraumatic. PERRLA trachea midline. Cardiovascular: Heart regular rate and rhythm without clicks, rubs, gallops, or murmurs. No JVD. PMI nondisplaced. No pedal edema. Bilateral radial and posterior tibial pulses 2/4. Respiratory: Symmetric chest rise with good respiratory effort. Bilateral breath sounds are clear without wheezing, crackles, or rhonchi. Abdomen: These. Bowel sounds present normoactive x-4 quadrants. Abdomen is soft, nondistended, and nontender. Psych: Patient's affect is appropriate for situation. - General Limitations: no limitations General appearance: alert, in no apparent distress Course Course Narrative: Patient has multiple comorbidities including history of PE. Clinical concern is for possible ACS versus CHF versus PE versus pneumonia. Thoracic aneurysm unlikely based on history. Lung sounds equal bilaterally without wheezing crackles; no indication for nebulizer therapy at this time. Low clinical suspicion for DKA but will rule out with lab work as well. Patient is returned. He does have leukocytosis. D-dimer is elevated with renal function reduced; unable to perform CTA due to renal function. Will perform VQ scan. Incidentally, nuclear fuels research engineer habits to be in the building at this time and is willing to perform VQ scan tonight. Chest x-ray is concerning for left lower lobe pneumonia. Will begin empiric treatment for hospital-acquired pneumonia given patient's multiple comorbidities and recent hospital stay. Otherwise, electrolytes are unremarkable. EKG unchanged from previous. Troponin negative. No anemia. No acidosis on VBG. No serum ketones. Bedside glucose during my evaluation was in the 120s. VQ scan interpreted by radiology as low risk for PE. Will admit the patient for continued IV antibiotics for HAP, continued supplemental O2 and respiratory support. Spoke with the admitting hospitalist who agrees to admission and has no other questions at this time. Vital Signs Temperature 97.4 F L 03/12/17 21:53 Pulse Rate 76 03/12/17 21:53 Respiratory Rate 18 03/12/17 21:53 Blood Pressure 128/73 03/12/17 21:53 O2 Sat by Pulse Oximetry 96 03/12/17 21:53 Temperature 97.9 F 03/13/17 03:08 Pulse Rate 70 03/13/17 03:08 Respiratory Rate 12 03/13/17 03:08 Blood Pressure 110/65 03/13/17 03:08 O2 Sat by Pulse Oximetry 99 03/13/17 03:08 Oxygen Delivery Oxygen Delivery Room Air Medical Decision Making - Medical Records Medical records reviewed: Yes I reviewed the patient's medical records. - Lab Data Lab results reviewed: Yes I reviewed the patient's lab results. Result diagrams: 03/12/17 22:19 03/12/17 22:19 Lab Results 03/12/17 03/12/17 03/12/17 Range/Units 22:19 22:19 22:19 WBC 15.2 H (4.3-11.1) K/mcL RBC 5.48 (4.19-5.50) M/mcL Hgb 13.8 (12.9-16.9) g/dL Hct 44.7 (37.5-50.1) % MCV 81.6 L (83.0-100.0) fL MCH 25.2 L (28.0-33.3) pg MCHC 30.9 L (31.6-35.5) g/dL RDW 21.0 H (11.5-14.5) % Plt Count 300 (140-400) K/mcL MPV 11.3 (9.4-12.4) fL Immature Gran % 1.4 (0-4) % Seg Neutrophils % 66.9 % Lymphocytes % 24.0 % Monocytes % 5.8 % Eosinophils % 1.6 % Basophils % 0.3 % Neutrophils # 10.2 H (1.6-8.9) K/mcL Lymphocytes # 3.7 (0.6-4.6) K/mcL Monocytes # 0.9 (0.0-1.3) K/mcL Eosinophils # 0.3 (0.0-0.6) K/mcL Basophils # 0.1 (0.0-0.2) K/mcL Immature Plt Fraction 10.8 H (1.1-6.1) % D-Dimer 1104 H (0-500) ng/mLFEU VBG pH (7.32-7.42) pH Units VBG pCO2 (41-51) mmHg VBG pO2 (25-40) mmHg VBG HCO3 (21-27) mEq/L Sodium 142 (136-145) mEq/L Potassium 3.8 (3.5-4.5) mEq/L Chloride 107 (98-109) mEq/L Carbon Dioxide 25 (19-29) mEq/L BUN 64 H (8-26) mg/dL Creatinine 2.47 H (0.72-1.25) mg/dL Est GFR ( Amer) 30 L (> 60) Est GFR (Non-Af Amer) 25 L (> 60) BUN/Creatinine Ratio 26 (6-26) Glucose 119 H (70-99) mg/dL Calculated Osmolality 313 H (280-300) Calcium 9.2 (8.6-10.8) mg/dL Magnesium 2.1 (1.6-2.6) mg/dL Troponin I (0-0.03) ng/mL Beta-Hydroxybutyric Acd (0.02-0.27) mmol/L Urine Color (Yellow) Urine Clarity (Clear) Urine pH (5.0-8.0) pH Units Ur Specific Nelson (1.010-1.025) Urine Protein (Neg-Trace) mg/dL Urine Glucose (UA) (Normal) mg/dL Urine Ketones (Negative) mg/dL Urine Blood (Negative) Urine Nitrite (Negative) Urine Bilirubin (Negative) Urine Urobilinogen (Normal) mg/dL Ur Leukocyte Esterase (Negative) Ur Culture Indicated? (NO) 03/12/17 03/12/17 03/12/17 Range/Units 22:19 22:19 22:19 WBC (4.3-11.1) K/mcL RBC (4.19-5.50) M/mcL Hgb (12.9-16.9) g/dL Hct (37.5-50.1) % MCV (83.0-100.0) fL MCH (28.0-33.3) pg MCHC (31.6-35.5) g/dL RDW (11.5-14.5) % Plt Count (140-400) K/mcL MPV (9.4-12.4) fL Immature Gran % (0-4) % Seg Neutrophils % % Lymphocytes % % Monocytes % % Eosinophils % % Basophils % % Neutrophils # (1.6-8.9) K/mcL Lymphocytes # (0.6-4.6) K/mcL Monocytes # (0.0-1.3) K/mcL Eosinophils # (0.0-0.6) K/mcL Basophils # (0.0-0.2) K/mcL Immature Plt Fraction (1.1-6.1) % D-Dimer (0-500) ng/mLFEU VBG pH 7.35 (7.32-7.42) pH Units VBG pCO2 50 (41-51) mmHg VBG pO2 34 (25-40) mmHg VBG HCO3 27.6 H (21-27) mEq/L Sodium (136-145) mEq/L Potassium (3.5-4.5) mEq/L Chloride (98-109) mEq/L Carbon Dioxide (19-29) mEq/L BUN (8-26) mg/dL Creatinine (0.72-1.25) mg/dL Est GFR ( Amer) (> 60) Est GFR (Non-Af Amer) (> 60) BUN/Creatinine Ratio (6-26) Glucose (70-99) mg/dL Calculated Osmolality (280-300) Calcium (8.6-10.8) mg/dL Magnesium (1.6-2.6) mg/dL Troponin I 0.01 (0-0.03) ng/mL Beta-Hydroxybutyric Acd 0.19 (0.02-0.27) mmol/L Urine Color (Yellow) Urine Clarity (Clear) Urine pH (5.0-8.0) pH Units Ur Specific Nelson (1.010-1.025) Urine Protein (Neg-Trace) mg/dL Urine Glucose (UA) (Normal) mg/dL Urine Ketones (Negative) mg/dL Urine Blood (Negative) Urine Nitrite (Negative) Urine Bilirubin (Negative) Urine Urobilinogen (Normal) mg/dL Ur Leukocyte Esterase (Negative) Ur Culture Indicated? (NO) 03/12/17 Range/Units 23:05 WBC (4.3-11.1) K/mcL RBC (4.19-5.50) M/mcL Hgb (12.9-16.9) g/dL Hct (37.5-50.1) % MCV (83.0-100.0) fL MCH (28.0-33.3) pg MCHC (31.6-35.5) g/dL RDW (11.5-14.5) % Plt Count (140-400) K/mcL MPV (9.4-12.4) fL Immature Gran % (0-4) % Seg Neutrophils % % Lymphocytes % % Monocytes % % Eosinophils % % Basophils % % Neutrophils # (1.6-8.9) K/mcL Lymphocytes # (0.6-4.6) K/mcL Monocytes # (0.0-1.3) K/mcL Eosinophils # (0.0-0.6) K/mcL Basophils # (0.0-0.2) K/mcL Immature Plt Fraction (1.1-6.1) % D-Dimer (0-500) ng/mLFEU VBG pH (7.32-7.42) pH Units VBG pCO2 (41-51) mmHg VBG pO2 (25-40) mmHg VBG HCO3 (21-27) mEq/L Sodium (136-145) mEq/L Potassium (3.5-4.5) mEq/L Chloride (98-109) mEq/L Carbon Dioxide (19-29) mEq/L BUN (8-26) mg/dL Creatinine (0.72-1.25) mg/dL Est GFR ( Amer) (> 60) Est GFR (Non-Af Amer) (> 60) BUN/Creatinine Ratio (6-26) Glucose (70-99) mg/dL Calculated Osmolality (280-300) Calcium (8.6-10.8) mg/dL Magnesium (1.6-2.6) mg/dL Troponin I (0-0.03) ng/mL Beta-Hydroxybutyric Acd (0.02-0.27) mmol/L Urine Color Yellow (Yellow) Urine Clarity Clear (Clear) Urine pH 5.5 (5.0-8.0) pH Units Ur Specific Nelson 1.018 (1.010-1.025) Urine Protein Negative (Neg-Trace) mg/dL Urine Glucose (UA) Normal (Normal) mg/dL Urine Ketones Negative (Negative) mg/dL Urine Blood Negative (Negative) Urine Nitrite Negative (Negative) Urine Bilirubin Negative (Negative) Urine Urobilinogen Normal (Normal) mg/dL Ur Leukocyte Esterase Negative (Negative) Ur Culture Indicated? NO (NO) - EKG Data EKG #1 EKG attestation: Yes I reviewed and interpreted this EKG. EKG results narrative: EKG dated 03/12/17 at 22:09 interpreted as sinus rhythm with rare PVCs. Rate is 77. Normal intervals with SD 192, QRS 104, QT/QTc 387/14. Normal axis. Nonspecific ST-T changes. Compared to previous dated 03/05/2017 show no acute ischemic changes or comparison.
[2017-03-12 22:27] LABS: Basophils # 0.1 K/mcL (0.0-0.2); Basophils % 0.3 %; Eosinophils # 0.3 K/mcL (0.0-0.6); Eosinophils % 1.6 %; Hematocrit 44.7 % (37.5-50.1); Hemoglobin 13.8 g/dL (12.9-16.9); Immature Granulocytes % 1.4 % (0-4); Immature Platelets 10.8 % (1.1-6.1); Lymphocytes # 3.7 K/mcL (0.6-4.6); Mean Corpuscular HGB Conc 30.9 g/dL (31.6-35.5); Mean Corpuscular Hemoglobin 25.2 pg (28.0-33.3); Mean Corpuscular Volume 81.6 fL (83.0-100.0); Mean Platelet Volume 11.3 fL (9.4-12.4); Monocytes # 0.9 K/mcL (0.0-1.3); Monocytes % 5.8 %; Neutrophils # 10.2 K/mcL (1.6-8.9); Platelet Count 300 K/mcL (140-400); Red Blood Count 5.48 M/mcL (4.19-5.50); Segmented Neutrophils % 66.9 %
[2017-03-12 22:29] LABS: VBG HCO3 27.6 mEq/L (21-27); VBG PH 7.35 pH Units (7.32-7.42)
[2017-03-12 22:42] LABS: Calcium 9.2 mg/dL (8.6-10.8); Magnesium 2.1 mg/dL (1.6-2.6); Potassium 3.8 mEq/L (3.5-4.5)
[2017-03-12 23:15] LABS: Bilirubin,Urine Negative (Negative); Blood,Urine Negative (Negative); Clarity,Urine Clear (Clear); Color,Urine Yellow (Yellow); Glucose,Urine (UA) Normal (Normal); Ketones,Urine Negative (Negative); Leukocyte Esterase,Urine Negative (Negative); Nitrite,Urine Negative (Negative); PH,Urine 5.5 pH Units (5.0-8.0); Protein,Urine Negative (Neg-Trace); Specific Gravity,Urine 1.018 (1.010-1.025); Urobilinogen,Urine Normal (Normal)
[2017-03-12] MEDS ORDERED: Levofloxacin 750 MG/150 ML 750 MG/150 ML BAG IVPB ONE (23:19)
--- NOTE | 2017-03-12 23:24 | Emergency Department Note ---
START Narrative - START START: I examined this patient and my medical decision-making was reviewed with the REHABILITATION COUNSELLOR/PA/Advanced Practice Nurse/Resident Physician. I agree with the documented findings, disposition and treatment plan as described except to the extent set forth below. ED attending note: Patient seen with emergency medicine resident Dr. Rushing. Please see a copy of his note for details of the H&P, evaluation, management and disposition of this patient. We independently had [id number] contact with the patient Briefly: A 86-year-old male presents with family for cough or shortness of breath and fatigue with some pleuritic chest pain. History of COPD and is home O2 dependent. Cough with sputum and subjective chills. ED workup is completed at this time showing left lower lobe atelectasis versus infiltrate consistent with pneumonia. Patient does have white count of 15.6 with mild left shift. Creatinine is elevated at 2.46 d-dimer 1100+. Pulmonary embolism is in the differential DQ scan has been ordered. Patient getting IV antibiotics. In that admission. Provided 45 minutes of critical care services for this patient. V/Q scan and admission disposition pending
[2017-03-13] MEDS ORDERED: Cefepime HCl 1,000 MG in D5% in Water (Mini-Bag+) 100 ML IVPB ONE (01:17)
[2017-03-13] MEDS ORDERED: Vancomycin 1,000 MG in D5% in Water 250 ML IVPB ONE ×2 (01:17→05:15)
[2017-03-13] MEDS ORDERED: Naloxone 0.4 MG/ML INJ IVP PRN (04:34)
--- NOTE | 2017-03-13 04:50 | Internal Med History&Physical ---
Date of Encounter: 03/13/17 Time of Encounter: 04:50 Assessment and Plan (1) Hospital-acquired pneumonia Current visit: Yes Status: Acute Suspected Left lower lobe pneumonia - emperically started on levofloxacin, vancomycin and cefepime. I have personally reviewed the CXR and compared it with his recent CXR - I do not see significant difference. Will obtain CT chest w/o contrast to evaluate this further. (2) Leucocytosis Current visit: Yes Status: Acute Could be secondary to Pneumonia versus recent steroid use. Monitor WBC count Qualifiers: Leukocytosis type: unspecified Qualified Code(s): D72.829 - Elevated white blood cell count, unspecified (3) CKD (chronic kidney disease) stage 3, GFR 30-59 ml/min Current visit: Yes Status: Chronic Monitor renal function. Avoid nephrotoxic (4) CAD (coronary artery disease) Current visit: Yes Status: Chronic Continue home medications Qualifiers: Coronary Disease-Associated Artery/Lesion type: [place] artery [place] vs. transplanted heart: [place] heart Associated angina: without angina Qualified Code(s): I25.10 - Atherosclerotic heart disease of [place] coronary artery without angina pectoris (5) Diabetes Current visit: Yes Status: Chronic Continue home medication Qualifiers: Diabetes mellitus type: type 2 Diabetes mellitus complication status: with neurologic complications Diabetes mellitus complication detail: with polyneuropathy Diabetes mellitus termite helper insulin use: with shelter use Qualified Code(s): E11.42 - Type 2 diabetes mellitus with diabetic polyneuropathy; 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 (6) Chronic diastolic CHF (congestive heart failure) Current visit: Yes Status: Chronic Continue home medications (7) COPD (chronic obstructive pulmonary disease) Current visit: Yes Status: Chronic Continue home medications Qualifiers: COPD type: chronic bronchitis Chronic bronchitis type: simple Qualified Code(s): J41.0 - Simple chronic bronchitis (8) HTN (hypertension) Current visit: Yes Status: Chronic Continue home medications Qualifiers: Hypertension type: essential hypertension Qualified Code(s): I10 - Essential (primary) hypertension (9) Weakness Current visit: Yes Status: Chronic Likely secondary to pneumonia. Supportive care. PT evaluation Internal Medicine - H&P: HPI Chief complaint: Shortness of breath Admitted From: Emergency Dept Plans for Post Hospital Care: Home History of present illness: Mr. Colon is a 86 year old male with PMH of CHF, COPD, chronic respiratory failure on LTOT (intermittent/PRN use), CAD, HTN, CKD, Diabetes, VTE. He was admitted to this hospital over a week ago with shortness of breath and COPD exacerbation. He presents to the ER with shortness of breath and increasing weakness since yesterday. Patient reportedly had pulse oxygen saturation of 82% at home. He reports cough with some expectoration. He denies hemoptysis. Reports Subjective fevers. He reports some left inframammary pleuritic chest pain. He denies abdominal pain, dysuria, hematuria, changes in bowel habits. He was evaluated in the emergency department chest x-ray was suspicious for left lower lobe pneumonia. D-Dimer is elevated at 1100 and VQ scan shows Low Probability for Pulmonary Embolus. He is started on treatment for healthcare associated pneumonia with the cefepime, vancomycin and levofloxacin. He is admitted to the hospitalist service for further management. Past Med Surg Social Fam HX - Past Medical History Medical history: CHF, COPD, coronary artery disease, DVT, diabetes, hyperlipidemia, hypertension, myocardial infarction, pulmonary embolus, renal disease Psychiatric history: no psych history - Past Surgical History Surgical History: cholecystectomy, herniorrhaphy, other, IVC Filter - Social History Smoking Status: Former smoker Smokeless Tobacco Status: No Alcohol use: none Drug use: none - Family History Brother Hx Family Cardiac Disorders: Yes (PR) Father Family Member Ethnicity: Non- Living Status: Hx Family Cardiac Disorders: No Hx Family Respiratory Disorders: No Hx Family Cancer: No Hx Family GI Disorders: No Hx Family Endocrine Disorder: No Hx Family Neuromuscular Disorders: No Hx Family Neurologic Disorders: No Hx Family HEENT Disorders: No Hx Family Autoimmune Disorders: No Internal Medicine - H&P: Meds Allopurinol [Zyloprim] 100 mg PO DAILY 05/13/15 [History] Aspirin 81 mg PO DAILY 05/13/15 [History] Cholecalciferol (Vitamin D3) [Vitamin D3] 5,000 mg PO DAILY 05/13/15 [History] Losartan [Cozaar] 25 mg PO DAILY 05/13/15 [History] Pantoprazole [Protonix] 40 mg PO DAILY 05/13/15 [History] Sertraline HCl [Zoloft] 25 mg PO HS 05/13/15 [History] Simvastatin [Zocor] 20 mg PO HS 05/13/15 [History] Vitamin E 400 unit PO DAILY 05/13/15 [History] Nitroglycerin 0.4 mg SL Q5MIN PRN #10 tab.subl 05/14/15 [Rx] Levothyroxine [Synthroid] 50 mcg PO DAILY 11/29/15 [History] Ranitidine HCl [Zantac] 150 mg PO HS 12/12/15 [History] Insulin LISPRO [Humalog] 20 unit SQ 1200 04/27/16 [History] Insulin LISPRO [Humalog] 20 unit SQ QAM 04/27/16 [History] Insulin LISPRO [Humalog] 25 unit SQ QPM 04/27/16 [History] Isosorbide MONOnitrate (24 HR) [Imdur] 30 mg PO DAILY #30 tab.er.24h 04/29/16 [ Rx] Metoprolol Tartrate [Lopressor] 50 mg PO BID #60 tablet 04/29/16 [Rx] Albuterol Sulfate [Albuterol Inhaler] 2 puff IH Q4H PRN 30 Days 10/21/16 [Rx] Budesonide/Formoterol 160/4.5 [Symbicort 160/4.5] 2 puff IH BIDR #1 inhaler 03/30 [Rx] Ferrous Gluconate 324 mg PO DAILY 01/12/17 [History] Sennosides/Docusate Sodium [Senna Plus] 1 each PO DAILY 01/12/17 [History] Glucagon, Human Recombinant [Glucagen] 1 mg IM ONCE PRN #0 vial 02/05/17 [Rx] Arformoterol Tartrate [Brovana] 15 mcg IH BID 03/04/17 [History] Budesonide Neb [Pulmicort Neb] 0.5 mg IH BID 03/04/17 [History] Hydrocortisone 2.5% CREAM [Cortaid] 1 appl TP BID 03/04/17 [History] Furosemide [Lasix] 40 mg PO DAILY #30 tablet 03/08/17 [Rx] Insulin DETEMIR [Levemir] 55 unit SQ BID #0 [id number] 03/08/17 [Rx] Allergies morphine Allergy (Verified 01/12/17 20:47) Rash All Systems PM: A 10-system review of systems was performed and is negative for pertinent findings except as documented above in the HPI. - Constitutional Vitals: Temp Pulse Resp BP Pulse Ox 97.9 F 70 12 110/65 99 03/13/17 03:08 03/13/17 03:08 03/13/17 03:08 03/13/17 03:08 03/13/17 03:08 Exam: General: Not in acute distress at the time of my evaluation HEENT: Oral mucosa is moist. No conjunctival palor or scleral icterus Neck: No obvious neck swellings Lungs: Clear to auscultation Cardiac: Regular rate and rhythm. No significant murmurs Abdomen: Soft, non tender. Bowel sounds present Genitourinary: No reed catheter Neurological: Alert and oriented. No gross localizing deficits Psych: Not aggressive or agitated Extremities: B/L leg edema Skin: No generalized rash Internal Med - H&P Results - Labs CBC & Chem 7: 03/12/17 22:19 03/12/17 22:19 - EKG Data -: EKG Interpreted by Myself EKG shows normal: sinus rhythm - EKG Data EKG comments: PVC; Q wave in lead III, AVF; T-wave inversion in leads V1-V4 03/13/17 05:43 - Impressions ITS Impressions Chest X-Ray 03/12/17 22:09 IMPRESSION: Left lower lobe opacity suspicious for mild pneumonia or partial atelectasis. D/ / 03/12/2017 22:44:07 Titus Hillman MD / [email or web address] Interpreting Provider: Titus Hillman MD Pulmonary Perfusion Imaging 03/12/17 23:07 IMPRESSION: Low Probability for Pulmonary Embolus. D/ / Titus Hillman MD / Titus Hillman MD Interpreting Provider: Titus Hillman MD
[2017-03-13] MEDS ORDERED: Vancomycin 1,500 MG in D5% in Water 250 ML IVPB SCH (05:00)
[2017-03-13] MEDS ORDERED: Nitroglycerin 0.4 MG TAB.SUBL SL PRN (05:55)
[2017-03-13] MEDS ORDERED: *HR* Dextrose 50 % in Water (Syg) 50 ML SYRINGE IVP PRN ×2 (06:08→15:04)
[2017-03-13] MEDS ORDERED: Dextrose Gel 15 GM PO PRN ×4 (06:08→15:04)
[2017-03-13] MEDS ORDERED: D5% in Water 1,000 ML IVC PRN ×2 (06:08→15:04)
[2017-03-13] MEDS: Isosorbide MONOnitrate (24 HR) 30 MG TAB.ER.24H PO SCH (08:19)
[2017-03-13] MEDS: Aspirin 81 MG TAB.CHEW PO SCH (08:19)
[2017-03-13] MEDS: Lactobacillus 1 EACH CAP.SPRINK PO SCH ×2 (08:19→20:26)
[2017-03-13] MEDS: Cholecalciferol (D-3) 1,000 UNIT TABLET PO SCH (08:20)
[2017-03-13] MEDS: Sennosides/Docusate Sodium TABLET PO SCH (08:20)
[2017-03-13] MEDS: Furosemide 40 MG TABLET PO SCH (08:20)
[2017-03-13] MEDS: Budesonide/Formoterol 160/4.5 MDI IH SCH ×2 (08:36→19:45)
[2017-03-13] MEDS ORDERED: Budesonide Neb 0.5 MG/2 ML IH SCH (09:00)
[2017-03-13] MEDS ORDERED: Insulin DETEMIR 100 UNIT/ML X5UNITS SQ SCH (09:00)
[2017-03-13] MEDS ORDERED: Insulin LISPRO 300 UNITS/3 ML VIAL SQ SCH ×3 (09:00→18:00)
[2017-03-13] MEDS: BROVANA 15 MCG IH SCH ×2 (10:40→22:18)
[2017-03-13] MEDS ORDERED: Cefepime HCl 1,000 MG in D5% in Water (Mini-Bag+) 100 ML IVPB SCH (12:00)
--- NOTE | 2017-03-13 13:07 | Electrocardiograph Report ---
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
--- NOTE | 2017-03-13 15:12 | Event Note ---
Date of Encounter: 03/13/17 Time of Encounter: 15:06 ryan seen at the bedside, appears to be at his baseline with no acute respiratory distress the son at the bedside reports that he was noted to be very weak yesterday, was started emperically on IV antibiotics for possble HCAP by night team. CT chest doen this morning does not show any signs of pneumonia, he has no complains at the bedside, denies chest pain or sob and has no fever or cough will stop the IV antibitiotics today, observe for today, PT/OT consult. plan dc tomm am if stable overnight
[2017-03-13] MEDS: *HR* Heparin 5,000 UNIT/ML VIAL SQ SCH (17:34)
[2017-03-13] MEDS: Insulin LISPRO 300 UNITS/3 ML VIAL SQ SCH ×3 (17:36→22:18)
[2017-03-13] MEDS: Famotidine 20 MG TABLET PO SCH (20:26)
--- NOTE | 2017-03-13 20:26 | Event Note ---
Date of Encounter: 03/13/17 Time of Encounter: 20:26 Patient's code status changed to DNR/DNI as per his living will.
[2017-03-13] MEDS ORDERED: Insulin DETEMIR 100 UNIT/ML X5UNITS SQ ONE (22:25)
[2017-03-13] MEDS: Insulin DETEMIR 100 UNIT/ML X5UNITS SQ SCH (22:27)
[2017-03-14] MEDS: *HR* Heparin 5,000 UNIT/ML VIAL SQ SCH ×2 (05:39→17:24)
[2017-03-14] MEDS: Insulin LISPRO 300 UNITS/3 ML VIAL SQ SCH ×7 (07:41→20:41)
[2017-03-14] MEDS ORDERED: Aminoglycoside Consult 1 EACH MC ONE (07:48)
[2017-03-14 08:20] LABS: Basophils % 0.3 %; Eosinophils # 0.5 K/mcL (0.0-0.6); Eosinophils % 3.3 %; Hematocrit 40.3 % (37.5-50.1); Hemoglobin 12.4 g/dL (12.9-16.9); Immature Granulocytes % 1.3 % (0-4); Lymphocytes # 2.9 K/mcL (0.6-4.6); Lymphocytes % 21.3 %; Mean Corpuscular HGB Conc 30.8 g/dL (31.6-35.5); Mean Corpuscular Hemoglobin 25.1 pg (28.0-33.3); Mean Corpuscular Volume 81.6 fL (83.0-100.0); Mean Platelet Volume 11.1 fL (9.4-12.4); Monocytes # 1.2 K/mcL (0.0-1.3); Monocytes % 8.6 %; Neutrophils # 8.8 K/mcL (1.6-8.9); Platelet Count 241 K/mcL (140-400); Red Blood Count 4.94 M/mcL (4.19-5.50); Red Cell Distribution Width 20.3 % (11.5-14.5); Segmented Neutrophils % 65.2 %
[2017-03-14 08:32] LABS: Calcium 8.7 mg/dL (8.6-10.8)
[2017-03-14 08:33] LABS: Potassium 4.1 mEq/L (3.5-4.5)
[2017-03-14] MEDS: Insulin DETEMIR 100 UNIT/ML X5UNITS SQ SCH ×2 (08:42→20:55)
[2017-03-14] MEDS: Aspirin 81 MG TAB.CHEW PO SCH (08:42)
[2017-03-14] MEDS: Lactobacillus 1 EACH CAP.SPRINK PO SCH ×2 (08:42→20:54)
[2017-03-14] MEDS: Furosemide 40 MG TABLET PO SCH (08:42)
[2017-03-14] MEDS: BROVANA 15 MCG IH SCH ×2 (08:43→20:55)
[2017-03-14] MEDS: Isosorbide MONOnitrate (24 HR) 30 MG TAB.ER.24H PO SCH (08:43)
[2017-03-14] MEDS: Sennosides/Docusate Sodium TABLET PO SCH (08:43)
[2017-03-14] MEDS: Cholecalciferol (D-3) 1,000 UNIT TABLET PO SCH (08:43)
[2017-03-14] MEDS: Budesonide/Formoterol 160/4.5 MDI IH SCH ×2 (10:59→22:12)
--- NOTE | 2017-03-14 16:31 | Internal Med Progress Note ---
Date of Encounter: 03/14/17 Time of Encounter: 16:28 - Assessment and plan (1) Near syncope Current Visit: No Status: Resolved Assessment and plan: brought to the hospital as he was very weak and was told that he was almost about to pass out after he came back from doctor's office initially started emperical antibiotics for possible pneumonia, however CT chest shows no evidence of pneumonia at his basline now and has no focal neuro defecits V/Q scan negative for any clots have stopped [facility] antibiotics, plan to observe/ (2) CKD (chronic kidney disease) stage 3, GFR 30-59 ml/min Current Visit: Yes Status: Chronic Assessment and plan: will continue to monitor [facility] serum creatinine currently stable avoid nephrotoxic agents (3) CAD (coronary artery disease) Current Visit: Yes Status: Chronic Assessment and plan: no chest pain. continue all home cardiac meds Qualifiers: Coronary Disease-Associated Artery/Lesion type: [place] artery [place] vs. transplanted heart: [place] heart Associated angina: without angina Qualified Code(s): I25.10 - Atherosclerotic heart disease of [place] coronary artery without angina pectoris (4) Diabetes Current Visit: Yes Status: Chronic Assessment and plan: fsg stable, continue current regimen Qualifiers: Diabetes mellitus type: type 2 Diabetes mellitus complication status: with neurologic complications Diabetes mellitus complication detail: with polyneuropathy Diabetes mellitus skilled nursing insulin use: with after school program coordinator use Qualified Code(s): E11.42 - Type 2 diabetes mellitus with diabetic polyneuropathy; Z79.4 - senior care (current) use of insulin (5) HTN (hypertension) Current Visit: Yes Status: Chronic Assessment and plan: stable, continue home meds Qualifiers: Hypertension type: essential hypertension Qualified Code(s): I10 - Essential (primary) hypertension (6) Hyperlipidemia Current Visit: No Status: Chronic Assessment and plan: continu home meds Qualifiers: Hyperlipidemia type: unspecified Qualified Code(s): E78.5 - Hyperlipidemia , unspecified (7) Goals of care, counseling/discussion Current Visit: No Status: Acute Assessment and plan: plan to dc to inpt. rehab, awaiting social work, may be on thursday - Subjective Interval history: patient seen at [facility] with [facility] daughter denies any complains, hard of hearing. denies chest pain, cough or sob, no fever, ate all of his breakfast this morning. - Constitutional Vitals: Temp Pulse Resp BP Pulse Ox 99.0 F 68 15 121/68 93 03/14/17 16:14 03/14/17 16:14 03/14/17 16:14 03/14/17 16:14 03/14/17 16:14 General appearance: Present: A&O X 3, no acute distress Exam: neck- supple chest- b/l clear , no added sounds CVs-s1 and s2 , no m/r/g abd-soft, non tender, bs are present ext- no edema neuro-alert and awake and no focal defecits Internal Medicine: Result - Labs CBC & Chem 7: 03/14/17 08:11 03/14/17 08:11 Labs: Short CBC 03/14/17 Range/Units 08:11 WBC 13.5 H (4.3-11.1) K/mcL Hgb 12.4 L (12.9-16.9) g/dL Hct 40.3 (37.5-50.1) % Plt Count 241 (140-400) K/mcL Neutrophils # 8.8 (1.6-8.9) K/mcL BMP 03/14/17 08:11 Sodium 138 Potassium 4.1 Chloride 104 Carbon Dioxide 24 BUN 59 H Creatinine 2.34 H Glucose 133 H Calcium 8.7 - ABG Interpretation ABG results: PT/INR, D-dimer D-Dimer 1104 ng/mLFEU (0-500) H 03/12/17 22:19 Consult Discharge Plan - Plan Referrals: Lio Gold RADIOTELEPHONE TECHNICAL OPERATOR [Primary Care Provider] -
[2017-03-14] MEDS: Famotidine 20 MG TABLET PO SCH (20:55)
[2017-03-15] MEDS ORDERED: Levofloxacin 500 MG/100 ML 500 MG/100 ML BAG IVPB SCH (02:00)
[2017-03-15] MEDS: *HR* Heparin 5,000 UNIT/ML VIAL SQ SCH ×2 (06:02→17:33)
[2017-03-15] MEDS: Insulin LISPRO 300 UNITS/3 ML VIAL SQ SCH ×7 (08:21→21:08)
[2017-03-15] MEDS: Isosorbide MONOnitrate (24 HR) 30 MG TAB.ER.24H PO SCH (08:25)
[2017-03-15] MEDS: Sennosides/Docusate Sodium TABLET PO SCH (08:25)
[2017-03-15] MEDS: Lactobacillus 1 EACH CAP.SPRINK PO SCH ×2 (08:25→21:41)
[2017-03-15] MEDS: Furosemide 40 MG TABLET PO SCH (08:26)
[2017-03-15] MEDS: Aspirin 81 MG TAB.CHEW PO SCH (08:26)
[2017-03-15] MEDS: Cholecalciferol (D-3) 1,000 UNIT TABLET PO SCH (08:26)
[2017-03-15] MEDS: Budesonide/Formoterol 160/4.5 MDI IH SCH ×2 (10:29→21:13)
[2017-03-15] MEDS: BROVANA 15 MCG IH SCH (10:48)
[2017-03-15] MEDS: Insulin DETEMIR 100 UNIT/ML X5UNITS SQ SCH ×2 (11:22→21:54)
--- NOTE | 2017-03-15 16:30 | Internal Med Progress Note ---
Date of Encounter: 03/15/17 Time of Encounter: 16:28 - Assessment and plan (1) Near syncope Current Visit: No Status: Resolved Assessment and plan: brought to the hospital as he was very weak and was told that he was almost about to pass out after he came back from doctor's office initially started emperical antibiotics for possible pneumonia, however CT chest shows no evidence of pneumonia at his basline now and has no focal neuro defecits V/Q scan negative for any clots have stopped [facility] antibiotics, plan to observe/ (2) CKD (chronic kidney disease) stage 3, GFR 30-59 ml/min Current Visit: Yes Status: Chronic Assessment and plan: will continue to monitor [facility] serum creatinine currently stable avoid nephrotoxic agents (3) CAD (coronary artery disease) Current Visit: Yes Status: Chronic Assessment and plan: no chest pain. continue all home cardiac meds Qualifiers: Coronary Disease-Associated Artery/Lesion type: [place] artery [place] vs. transplanted heart: [place] heart Associated angina: without angina Qualified Code(s): I25.10 - Atherosclerotic heart disease of [place] coronary artery without angina pectoris (4) Diabetes Current Visit: Yes Status: Chronic Assessment and plan: fsg stable, continue current regimen Qualifiers: Diabetes mellitus type: type 2 Diabetes mellitus complication status: with neurologic complications Diabetes mellitus complication detail: with polyneuropathy Diabetes mellitus shelter insulin use: with termite control representative use Qualified Code(s): E11.42 - Type 2 diabetes mellitus with diabetic polyneuropathy; Z79.4 - correction (current) use of insulin (5) HTN (hypertension) Current Visit: Yes Status: Chronic Assessment and plan: stable, continue home meds Qualifiers: Hypertension type: essential hypertension Qualified Code(s): I10 - Essential (primary) hypertension (6) Hyperlipidemia Current Visit: No Status: Chronic Assessment and plan: continu home meds Qualifiers: Hyperlipidemia type: unspecified Qualified Code(s): E78.5 - Hyperlipidemia , unspecified (7) Goals of care, counseling/discussion Current Visit: No Status: Acute Assessment and plan: plan to dc to inpt. rehab, awaiting social work, may be on thursday - Subjective Interval history: patient seen at [facility] with the son denies any complains, hard of hearing. denies chest pain, cough or sob, no fever, ate all of his breakfast this morning. - Constitutional Vitals: Temp Pulse Resp BP Pulse Ox 97.6 F 68 14 118/65 92 03/15/17 16:10 03/15/17 16:10 03/15/17 16:10 03/15/17 16:10 03/15/17 16:10 General appearance: Present: A&O X 3, no acute distress Exam: neck- supple chest- b/l clear, no added sounds CVs-s1 and s2, no mr//g abd-soft, non tender, bs are present ext- no edema neuro- alert and awake, no focal neuro defecit Internal Medicine: Result - Labs CBC & Chem 7: 03/14/17 08:11 03/14/17 08:11 - ABG Interpretation ABG results: PT/INR, D-dimer D-Dimer 1104 ng/mLFEU (0-500) H 03/12/17 22:19 Consult Discharge Plan - Plan Referrals: Lio Gold, SPEECH AND HEARING DIRECTOR [Primary Care Provider] -
[2017-03-15] MEDS ORDERED: Melatonin 3 MG TABLET PO SCH ×2 (21:00)
[2017-03-15] MEDS: Albuterol 2.5 MG/3 ML NEBULIZER IH SCH (21:13)
[2017-03-15] MEDS: Famotidine 20 MG TABLET PO SCH (21:41)
[2017-03-15] MEDS ORDERED: Insulin DETEMIR 100 UNIT/ML X5UNITS SQ ONE (21:53)
[2017-03-16] MEDS: *HR* Heparin 5,000 UNIT/ML VIAL SQ SCH (05:48)
[2017-03-16] MEDS: Albuterol 2.5 MG/3 ML NEBULIZER IH SCH (07:32)
[2017-03-16] MEDS: Budesonide/Formoterol 160/4.5 MDI IH SCH (07:33)
[2017-03-16 08:56] LABS: Basophils # 0.1 K/mcL (0.0-0.2); Basophils % 0.5 %; Eosinophils # 0.4 K/mcL (0.0-0.6); Eosinophils % 3.1 %; Hematocrit 44.6 % (37.5-50.1); Hemoglobin 13.8 g/dL (12.9-16.9); Immature Granulocytes % 1.1 % (0-4); Lymphocytes # 3.1 K/mcL (0.6-4.6); Lymphocytes % 23.6 %; Mean Corpuscular HGB Conc 30.9 g/dL (31.6-35.5); Mean Corpuscular Hemoglobin 25.4 pg (28.0-33.3); Mean Corpuscular Volume 82.1 fL (83.0-100.0); Mean Platelet Volume 11.9 fL (9.4-12.4); Monocytes # 0.8 K/mcL (0.0-1.3); Monocytes % 6.2 %; Neutrophils # 8.6 K/mcL (1.6-8.9); Platelet Count 248 K/mcL (140-400); Red Blood Count 5.43 M/mcL (4.19-5.50); Red Cell Distribution Width 20.9 % (11.5-14.5); Segmented Neutrophils % 65.5 %
[2017-03-16 09:09] LABS: Calcium 9.5 mg/dL (8.6-10.8)
[2017-03-16] MEDS: Insulin LISPRO 300 UNITS/3 ML VIAL SQ SCH ×2 (10:08→10:09)
[2017-03-16] MEDS: Cholecalciferol (D-3) 1,000 UNIT TABLET PO SCH (10:14)
[2017-03-16] MEDS: Furosemide 40 MG TABLET PO SCH (10:14)
[2017-03-16] MEDS: Isosorbide MONOnitrate (24 HR) 30 MG TAB.ER.24H PO SCH (10:14)
[2017-03-16] MEDS: Lactobacillus 1 EACH CAP.SPRINK PO SCH (10:14)
[2017-03-16] MEDS: Aspirin 81 MG TAB.CHEW PO SCH (10:14)
--- NOTE | 2017-03-16 10:14 | Discharge Summary ---
Date of Encounter: 03/16/17 Time of Encounter: 10:10 - Discharge Diagnosis (1) Near syncope Priority: Primary Status: Resolved (2) CKD (chronic kidney disease) stage 3, GFR 30-59 ml/min Priority: Secondary Status: Chronic (3) CAD (coronary artery disease) Priority: Secondary Status: Chronic Qualifiers: Coronary Disease-Associated Artery/Lesion type: [place] artery [place] vs. transplanted heart: [place] heart Associated angina: without angina Qualified Code(s): I25.10 - Atherosclerotic heart disease of [place] coronary artery without angina pectoris (4) Diabetes Priority: Secondary Status: Chronic Qualifiers: Diabetes mellitus type: type 2 Diabetes mellitus complication status: with neurologic complications Diabetes mellitus complication detail: with polyneuropathy Diabetes mellitus major assembly lineman insulin use: with care home use Qualified Code(s): E11.42 - Type 2 diabetes mellitus with diabetic polyneuropathy; Z79.4 - senior care (current) use of insulin (5) HTN (hypertension) Priority: Secondary Status: Chronic Qualifiers: Hypertension type: essential hypertension Qualified Code(s): I10 - Essential (primary) hypertension (6) Hyperlipidemia Priority: Secondary Status: Chronic Qualifiers: Hyperlipidemia type: unspecified Qualified Code(s): E78.5 - Hyperlipidemia , unspecified (7) Goals of care, counseling/discussion Priority: Secondary Status: Acute - Discharge Medications Prescriptions: Insulin DETEMIR [Levemir] 32 unit SQ BID 30 Days Home Medications: Allopurinol [Zyloprim] 100 mg PO DAILY 05/13/15 [History] Aspirin 81 mg PO DAILY 05/13/15 [History] Cholecalciferol (Vitamin D3) [Vitamin D3] 5,000 mg PO DAILY 05/13/15 [History] Losartan [Cozaar] 25 mg PO DAILY 05/13/15 [History] Pantoprazole [Protonix] 40 mg PO DAILY 05/13/15 [History] Sertraline HCl [Zoloft] 25 mg PO HS 05/13/15 [History] Simvastatin [Zocor] 20 mg PO HS 05/13/15 [History] Vitamin E 400 unit PO DAILY 05/13/15 [History] Nitroglycerin 0.4 mg SL Q5MIN PRN #10 tab.subl 05/14/15 [Rx] Levothyroxine [Synthroid] 50 mcg PO DAILY 11/29/15 [History] Ranitidine HCl [Zantac] 150 mg PO HS 12/12/15 [History] Insulin LISPRO [Humalog] 20 unit SQ 1200 04/27/16 [History] Insulin LISPRO [Humalog] 20 unit SQ QAM 04/27/16 [History] Insulin LISPRO [Humalog] 25 unit SQ QPM 04/27/16 [History] Isosorbide MONOnitrate (24 HR) [Imdur] 30 mg PO DAILY #30 tab.er.24h 04/29/16 [ Rx] Metoprolol Tartrate [Lopressor] 50 mg PO BID #60 tablet 04/29/16 [Rx] Albuterol Sulfate [Albuterol Inhaler] 2 puff IH Q4H PRN 30 Days 10/21/16 [Rx] Budesonide/Formoterol 160/4.5 [Symbicort 160/4.5] 2 puff IH BIDR #1 inhaler 03/30 [Rx] Ferrous Gluconate 324 mg PO DAILY 01/12/17 [History] Sennosides/Docusate Sodium [Senna Plus] 1 tab PO DAILY 01/12/17 [History] Glucagon, Human Recombinant [Glucagen] 1 mg IM ONCE PRN #0 vial 02/05/17 [Rx] Arformoterol Tartrate [Brovana] 15 mcg IH BID 03/04/17 [History] Budesonide Neb [Pulmicort Neb] 0.5 mg IH BID 03/04/17 [History] Hydrocortisone 2.5% CREAM [Cortaid] 1 appl TP BID 03/04/17 [History] Furosemide [Lasix] 40 mg PO DAILY #30 tablet 03/08/17 [Rx] Insulin DETEMIR [Levemir] 32 unit SQ BID 30 Days 03/16/17 [Rx] Allergies/Adverse Reactions: Allergies morphine Allergy (Verified 01/12/17 20:47) Rash Date of admission: 03/13/17 04:34 Primary care physician: Lio Gold CNP Consults: 03/13/17 10:13 Consult to Entry Level Project Engineer [CONS] Routine Reason for SW Consult: re-admission 03/13/17 13:10 Consult to Physical Therapy [CONS] Routine Comment: Evaluate, develop and implement POC Reason for Consult: weakness 03/13/17 13:11 Consult to Occupational Therapy [CONS] Routine Comment: Evaluate, develop and implement POC Reason for Consult: weakness Discharging clinician: Alessandra Chang Anticipated date of discharge: 03/16/17 - Patient Status Disposition: Transfer Inpatient Rehab Fac Condition: Fair Functional capacity at discharge: uses cane/walker Overall status at discharge: patient is back to baseline - Discharge Instructions Instructions: Heart Failure (DC), Diabetes Mellitus Type 2 in Adults (DC), Chronic Obstructive Pulmonary Disease (DC), Chronic Hypertension (DC) Follow Up With: Lio Gold CNP [Primary Care Provider] - - Diet and Activity Activity: as per physical therapy Diet: diabetic diet Interval History: Mr. Colon is a 86 year old male with PMH of CHF, COPD, chronic respiratory failure on LTOT (intermittent/PRN use), CAD, HTN, CKD, Diabetes, VTE. He was admitted to this hospital over a week ago with shortness of breath and COPD exacerbation. he was brought in again as he was very weak and exhausted after he came back from his doctor's office and almost passed out as per the son. he was started emperically on IV antibiotics for possble HCAP at ED. CT chest doen does not show any signs of pneumonia, he has no complains at the bedside, denies chest pain or sob and has no fever or cough IV antibitiotics was stopped and osbserved, v/Q was also done as the d- dimer was high, however it was negative for clot. he remained stable with no complains. PT/OT recommended inpt. rehab and he is being dc today in stable condition. Hospital course: Mr. Colon is a 86 year old male - Time Spent with Patient Total time spent providing and/or coordinating discharge services: - Constitutional Vitals: Temp Pulse Resp BP Pulse Ox 97.6 F 64 16 98/55 94 03/16/17 06:35 03/16/17 06:35 03/16/17 07:32 03/16/17 07:32 03/16/17 07:32 General appearance: Present: A&O X 3, no acute distress Exam: HEENT: Oral mucosa is moist. No conjunctival palor or scleral icterus Neck: No obvious neck swellings Lungs: Clear to auscultation Cardiac: Regular rate and rhythm. No significant murmurs Abdomen: Soft, non tender. Bowel sounds present Genitourinary: No reed catheter Neurological: Alert and oriented. No gross localizing deficits Psych: Not aggressive or agitated Extremities: B/L no leg edema Skin: No generalized rash
--- NOTE | 2017-03-16 10:15 | Physician Discharge Referral ---
ExtendedCare Referral Info Transfer To: f Provider in Charge: carmen kaufman Institutional Level of Care: Intermediate - Diagnosis (1) Near syncope Status: Resolved (2) CKD (chronic kidney disease) stage 3, GFR 30-59 ml/min Status: Chronic (3) CAD (coronary artery disease) Status: Chronic (4) Diabetes Status: Chronic (5) HTN (hypertension) Status: Chronic (6) Hyperlipidemia Status: Chronic (7) Goals of care, counseling/discussion Status: Acute - Transfer Medications Prescriptions: Insulin DETEMIR [Levemir] 32 unit SQ BID 30 Days Home Medications: Allopurinol [Zyloprim] 100 mg PO DAILY 05/13/15 [History] Aspirin 81 mg PO DAILY 05/13/15 [History] Cholecalciferol (Vitamin D3) [Vitamin D3] 5,000 mg PO DAILY 05/13/15 [History] Losartan [Cozaar] 25 mg PO DAILY 05/13/15 [History] Pantoprazole [Protonix] 40 mg PO DAILY 05/13/15 [History] Sertraline HCl [Zoloft] 25 mg PO HS 05/13/15 [History] Simvastatin [Zocor] 20 mg PO HS 05/13/15 [History] Vitamin E 400 unit PO DAILY 05/13/15 [History] Nitroglycerin 0.4 mg SL Q5MIN PRN #10 tab.subl 05/14/15 [Rx] Levothyroxine [Synthroid] 50 mcg PO DAILY 11/29/15 [History] Ranitidine HCl [Zantac] 150 mg PO HS 12/12/15 [History] Insulin LISPRO [Humalog] 20 unit SQ 1200 04/27/16 [History] Insulin LISPRO [Humalog] 20 unit SQ QAM 04/27/16 [History] Insulin LISPRO [Humalog] 25 unit SQ QPM 04/27/16 [History] Isosorbide MONOnitrate (24 HR) [Imdur] 30 mg PO DAILY #30 tab.er.24h 04/29/16 [ Rx] Metoprolol Tartrate [Lopressor] 50 mg PO BID #60 tablet 04/29/16 [Rx] Albuterol Sulfate [Albuterol Inhaler] 2 puff IH Q4H PRN 30 Days 10/21/16 [Rx] Budesonide/Formoterol 160/4.5 [Symbicort 160/4.5] 2 puff IH BIDR #1 inhaler 03/30 [Rx] Ferrous Gluconate 324 mg PO DAILY 01/12/17 [History] Sennosides/Docusate Sodium [Senna Plus] 1 tab PO DAILY 01/12/17 [History] Glucagon, Human Recombinant [Glucagen] 1 mg IM ONCE PRN #0 vial 02/05/17 [Rx] Arformoterol Tartrate [Brovana] 15 mcg IH BID 03/04/17 [History] Budesonide Neb [Pulmicort Neb] 0.5 mg IH BID 03/04/17 [History] Hydrocortisone 2.5% CREAM [Cortaid] 1 appl TP BID 03/04/17 [History] Furosemide [Lasix] 40 mg PO DAILY #30 tablet 03/08/17 [Rx] Insulin DETEMIR [Levemir] 32 unit SQ BID 30 Days 03/16/17 [Rx] Allergies/Adverse Reactions: Allergies morphine Allergy (Verified 01/12/17 20:47) Rash - Respiratory Orders Oxygen / L per min (2l/min) Smoking Cessation: Smoking cessation has been advised. For more information, call the [place] Tobacco Quit Line at 7-956-QLEI-NOW. - Advance Directives Code Status: DNR-Arrest/Don't Intubate - Mobility Orders Chair, Ambulate - Rehabiliation Orders Rehab Potential: Fair Rehab Orders: Evaluation for Physical Therapy, Evaluation for Occupational Therapy - Diet Orders Regular, No Concentrated Sweets CERTIFICATION: I certify that the transfer of the above named patient to an Extended Care Facility is necessary for the continuing treatment of the diagnosis listed. The above information is true and accurate reflection of patient's current condition. Confidential - Redisclosure prohibited without a patient's written consent.
[2017-03-16] MEDS: Sennosides/Docusate Sodium TABLET PO SCH (10:19)
[2017-03-16] MEDS: Insulin DETEMIR 100 UNIT/ML X5UNITS SQ SCH (10:19)
[2017-03-16 11:09] VITALS: BP 123/69
== END 2017-03-16 13:04 | DRG 312 ==
LOC: 3BNU 21:50 → EMEROO 21:50 → 3BNU 03-13 02:35
PROVIDERS: ADMIT Internal Medicine; ATTEND Nurse Practitioner Family

== ENCOUNTER 2018-01-17 13:15 | Inpatient (IN) ==
[2018-01-17 14:26] LABS: Basophils # 0.1 K/mcL (0.0-0.2); Basophils % 1.1 %; Eosinophils # 0.4 K/mcL (0.0-0.6); Hematocrit 43.3 % (37.5-50.1); Hemoglobin 14.1 g/dL (12.9-16.9); Immature Granulocytes % 0.9 % (0-4); Lymphocytes # 2.4 K/mcL (0.6-4.6); Mean Corpuscular HGB Conc 32.6 g/dL (31.6-35.5); Mean Corpuscular Hemoglobin 29.6 pg (28.0-33.3); Mean Corpuscular Volume 90.8 fL (83.0-100.0); Mean Platelet Volume 11.7 fL (9.4-12.4); Monocytes # 0.8 K/mcL (0.0-1.3); Monocytes % 7.6 %; Neutrophils # 6.3 K/mcL (1.6-8.9); Platelet Count 232 K/mcL (140-400); Red Blood Count 4.77 M/mcL (4.19-5.50); Red Cell Distribution Width 15.9 % (11.5-14.5); Segmented Neutrophils % 62.4 %
[2018-01-17 14:35] LABS: BUN/Creatinine Ratio 13 (6-26); Blood Urea Nitrogen 32 mg/dL (8-23); Calcium 8.7 mg/dL (8.6-10.3); Carbon Dioxide 25 mEq/L (23-29); Chloride 104 mEq/L (98-107); Glucose 147 mg/dL (70-105); Osmolality,Calculated 296 (280-300); Potassium 4.1 mEq/L (3.5-5.1); Sodium 138 mEq/L (136-145); eGFR For African Americans 30 (> 60); eGFR For Non-African Americans 25 (> 60)
[2018-01-17 14:36] LABS: Troponin I < 0.03 ng/mL (< 0.04)
--- NOTE | 2018-01-17 14:37 | Emergency Department Note ---
Disposition Clinical Impression: SOB (shortness of breath), Hypoxia, Bradycardia Disposition: Admitted As Inpatient Condition: Fair Time of Disposition: 16:59 SOB HPI - General Chief Complaint: ED Shortness of Breath/Dyspnea Stated Complaint: weakness/low O2 Time Seen by Provider: 01/17/18 13:24 Source: patient, family Limitations: no limitations Nursing Notes Reviewed: Yes Vital Signs Reviewed: Yes - History of Present Illness Patient is an 87-year-old male with a past medical history of CHF, COPD, CAD, DVT, diabetes, hypertension, SD, PE, renal disease with a past surgical history of coronary stents and IVC filter that presents for dyspnea for the past week. Patient was accompanied by his son. The son says the patient's O2 saturation at home has been in the 80s on room air. He has oxygen at home but does not wear it because his O2 sats at room air usually been above 90s. He does admit that last week patient was sick. He denies any recent fever. Patient says that he has been experiencing a clear productive cough for the past week. The son says that he has noticed bilateral ankle swelling and the patient and says that he has had a 7 pound increase in the past week. He admits to chest tightness which occurred earlier this morning and lasted one hour. He denies any abdominal pain. Denies any nausea or vomiting. Denies any melena or hematochezia. Denies any dysuria or hematuria. - Related Data Home Medications Medication Instructions Recorded Confirmed Allopurinol [Zyloprim] 100 mg PO DAILY 05/13/15 01/17/18 Aspirin 81 mg PO DAILY 05/13/15 01/17/18 Cholecalciferol (Vitamin D3) 5,000 mg PO DAILY 05/13/15 01/17/18 [Vitamin D3] Losartan [Cozaar] 25 mg PO DAILY 05/13/15 01/17/18 Pantoprazole [Protonix] 40 mg PO DAILY 05/13/15 01/17/18 Sertraline HCl [Zoloft] 25 mg PO HS 05/13/15 01/17/18 Simvastatin [Zocor] 20 mg PO HS 05/13/15 01/17/18 Vitamin E 400 unit PO DAILY 05/13/15 01/17/18 Levothyroxine [Synthroid] 50 mcg PO DAILY 11/29/15 01/17/18 Ranitidine HCl [Zantac] 150 mg PO HS 12/12/15 01/17/18 Ferrous Gluconate 324 mg PO DAILY 01/12/17 01/17/18 Sennosides/Docusate Sodium [Senna 1 tab PO DAILY 01/12/17 01/17/18 Plus] Fluticasone/Vilanterol [Breo 1 puff IH DAILY 01/17/18 01/17/18 Ellipta 100-25 Mcg INH] Insulin ASPART [NovoLOG] 20 unit SQ TID 01/17/18 01/17/18 Insulin Degludec [Tresiba 50 unit SQ HS 01/17/18 01/17/18 Flextouch U-100] Linaclotide [Linzess] 290 mcg PO DAILY 01/17/18 01/17/18 Previous Rx's Medication Instructions Recorded Nitroglycerin 0.4 mg SL Q5MIN PRN #10 tab.subl 05/14/15 Isosorbide MONOnitrate (24 HR) 30 mg PO DAILY #30 tab.er.24h 04/29/16 [Imdur] Metoprolol Tartrate [Lopressor] 50 mg PO BID #60 tablet 04/29/16 Albuterol Sulfate [Albuterol 2 puff IH Q4H PRN 30 Days inh 10/21/16 Inhaler] Furosemide [Lasix] 40 mg PO DAILY #30 tablet 03/08/17 Polyethylene Glycol 3350 [MiraLAX] 17 gm PO DAILY #7 powd.pack 11/14/17 Allergies Allergy/AdvReac Type Severity Reaction Status Date / Time morphine Allergy Rash Verified 01/12/17 20:47 Constitutional: Reports: weight change (7 pounds in the past week). Denies: fever, chills, weakness Cardiovascular: Reports: chest pain, dyspnea on exertion, orthopnea Respiratory: Reports: cough, dyspnea, sputum production. Denies: wheezes Gastrointestinal: Denies: abdominal pain, nausea, vomiting, diarrhea, constipation, hematemesis, melena, hematochezia Genitourinary: Denies: urgency, dysuria, frequency, hematuria Past Medical History - Past Medical History Medical history: Reports: CHF, COPD, coronary artery disease, DVT, diabetes, hyperlipidemia, hypertension, myocardial infarction, pulmonary embolus, renal disease Surgical history: Reports: cholecystectomy, herniorrhaphy, other, IVC Filter Psychiatric history: Reports: no psych history - Social History Smoking Status: Never smoker Smokeless Tobacco Status: No Alcohol use: Reports: none Drug use: Reports: none Physical Exam - General Limitations: no limitations General appearance: alert, in distress - Neck Neck exam: Present: normal inspection, full ROM, trachea midline, other (No JVD) - Chest Chest inspection: Present: normal inspection, symmetric chest wall rise. Absent : tenderness - Respiratory Respiratory exam: Present: normal lung sounds bilaterally - Cardiovascular Cardiovascular exam: Present: regular rate, normal rhythm, normal heart sounds, +S1, +S2. Absent: +S3, +S4 - Abdominal Exam Abdominal exam: Present: soft, Non-Tender. Absent: tenderness, distention, guarding, rebound, rigidity - Extremities Exam Extremities exam: Present: full ROM, normal capillary refill, pedal edema (+1 pitting edema bilaterally), calf tenderness (Minor Left calf tenderness), other (Negative Homans sign bilaterally). Absent: tenderness - Skin Skin exam: Present: warm, dry, intact, normal color Course Course Narrative: Patient was put on 2-1/2 L of oxygen and his O2 saturation has been at 94. His glucose point of care measurement was 140-150. Patient has been afebrile. We will order a chest x-ray to rule out a possible pneumonia. COPD exacerbation unlikely due to no wheezing on exam. He did present with some minor bilateral pitting edema of the ankles. We will order a BMP to evaluate CHF exacerbation. UA to look for any UTI. EKG and troponin to rule out ACS. Update at 1651: CXR shows bibasilar atelectasis. EKG did not reveal any acute changes when compared to previous one from 11/14/17. Troponin is negative. ACS unlikely. Headt CT did not reveal any mass or bleed. UA revealed no signs of infection. BNP was not elevated. He only had +1 pitting edema of ankles b/l. CHF exacerbation unlikely. Well's score for PE was 4.6, which correlates with a 16.2% chance of PE in the ED population. Patient has elevated creatinine at his baseline. Given his history for prior PE and Well's score of 4.5, patient would need a CTA to r/o PE, however given his CKD, patient needs to be admitted to have a VQ scan performed instead. Spoke to hospitalist Dr. Sheldon who agreed to admit the patient. Chest X-Ray 01/17/18 13:53 IMPRESSION: 1. Bibasilar atelectasis. 2. Stable mild enlargement of the cardiac silhouette. D/ / Luis Fernando Hinton MD / Luis Fernando Hinton MD Interpreting Provider: Luis Fernando Hinton MD Head CT 01/17/18 15:01 IMPRESSION: No acute intracranial abnormality. D/ / Nazario Flores / Nazario Flores Interpreting Provider: Nazario Flores Laboratory Results - last 24 hr 01/17/18 01/17/18 01/17/18 13:31 13:50 14:01 WBC 10.1 RBC 4.77 Hgb 14.1 Hct 43.3 MCV 90.8 MCH 29.6 MCHC 32.6 RDW 15.9 H Plt Count 232 MPV 11.7 Immature Gran % 0.9 Seg Neutrophils % 62.4 Lymphocytes % 24.0 Monocytes % 7.6 Eosinophils % 4.0 Basophils % 1.1 Neutrophils # 6.3 Lymphocytes # 2.4 Monocytes # 0.8 Eosinophils # 0.4 Basophils # 0.1 Sodium Potassium Chloride Carbon Dioxide BUN Creatinine Est GFR ( Amer) Est GFR (Non-Af Amer) BUN/Creatinine Ratio Glucose POC Glucose 148 H Calculated Osmolality Lactic Acid 2.1 Calcium Troponin I B-Natriuretic Peptide Urine Color Urine Clarity Urine pH Ur Specific [place] Urine Protein Urine Glucose (UA) Urine Ketones Urine Blood Urine Nitrite Urine Bilirubin Urine Urobilinogen Ur Leukocyte Esterase Ur Culture Indicated? 01/17/18 01/17/18 01/17/18 14:01 14:01 14:11 WBC RBC Hgb Hct MCV MCH MCHC RDW Plt Count MPV Immature Gran % Seg Neutrophils % Lymphocytes % Monocytes % Eosinophils % Basophils % Neutrophils # Lymphocytes # Monocytes # Eosinophils # Basophils # Sodium 138 Potassium 4.1 Chloride 104 Carbon Dioxide 25 BUN 32 H Creatinine 2.45 H Est GFR ( Amer) 30 L Est GFR (Non-Af Amer) 25 L BUN/Creatinine Ratio 13 Glucose 147 H POC Glucose Calculated Osmolality 296 Lactic Acid Calcium 8.7 Troponin I < 0.03 B-Natriuretic Peptide 34 Urine Color Dark Yellow Urine Clarity Clear Urine pH 5.0 Ur Specific [place] 1.025 Urine Protein Negative Urine Glucose (UA) Normal Urine Ketones Negative Urine Blood Negative Urine Nitrite Negative Urine Bilirubin Small H Urine Urobilinogen Normal Ur Leukocyte Esterase Negative Ur Culture Indicated? NO Vital Signs Temperature 97.9 F 01/17/18 13:17 Pulse Rate 60 01/17/18 13:17 Respiratory Rate 20 01/17/18 13:17 Blood Pressure 103/62 01/17/18 13:17 O2 Sat by Pulse Oximetry 94 01/17/18 13:17 Temperature 97.9 F 01/17/18 13:17 Pulse Rate 56 01/17/18 14:48 Respiratory Rate 18 01/17/18 14:48 Blood Pressure 115/69 01/17/18 14:48 O2 Sat by Pulse Oximetry 94 01/17/18 14:48 Oxygen Delivery Oxygen Delivery Nasal Cannula Shortness of Breath/Dyspnea - Lab Data Result diagrams: 01/17/18 14:01 01/17/18 14:01 Lab Results 01/17/18 01/17/18 01/17/18 Range/Units 13:31 13:50 14:01 WBC 10.1 (4.3-11.1) K/mcL RBC 4.77 (4.19-5.50) M/mcL Hgb 14.1 (12.9-16.9) g/dL Hct 43.3 (37.5-50.1) % MCV 90.8 (83.0-100.0) fL MCH 29.6 (28.0-33.3) pg MCHC 32.6 (31.6-35.5) g/dL RDW 15.9 H (11.5-14.5) % Plt Count 232 (140-400) K/mcL MPV 11.7 (9.4-12.4) fL Immature Gran % 0.9 (0-4) % Seg Neutrophils % 62.4 % Lymphocytes % 24.0 % Monocytes % 7.6 % Eosinophils % 4.0 % Basophils % 1.1 % Neutrophils # 6.3 (1.6-8.9) K/mcL Lymphocytes # 2.4 (0.6-4.6) K/mcL Monocytes # 0.8 (0.0-1.3) K/mcL Eosinophils # 0.4 (0.0-0.6) K/mcL Basophils # 0.1 (0.0-0.2) K/mcL Sodium (136-145) mEq/L Potassium (3.5-5.1) mEq/L Chloride (98-107) mEq/L Carbon Dioxide (23-29) mEq/L BUN (8-23) mg/dL Creatinine (0.70-1.30) mg/dL Est GFR ( Amer) (> 60) Est GFR (Non-Af Amer) (> 60) BUN/Creatinine Ratio (6-26) Glucose (70-105) mg/dL POC Glucose 148 H (70-99) mg/dL Calculated Osmolality (280-300) Lactic Acid 2.1 (0.5-2.2) mmol/L Calcium (8.6-10.3) mg/dL Troponin I (< 0.04) ng/mL B-Natriuretic Peptide (Less than 100) pg/mL Urine Color (Yellow) Urine Clarity (Clear) Urine pH (5.0-8.0) pH Units Ur Specific [place] (1.010-1.025) Urine Protein (Neg-Trace) mg/dL Urine Glucose (UA) (Normal) mg/dL Urine Ketones (Negative) mg/dL Urine Blood (Negative) Urine Nitrite (Negative) Urine Bilirubin (Negative) Urine Urobilinogen (Normal) mg/dL Ur Leukocyte Esterase (Negative) Ur Culture Indicated? (NO) 01/17/18 01/17/18 01/17/18 Range/Units 14:01 14:01 14:11 WBC (4.3-11.1) K/mcL RBC (4.19-5.50) M/mcL Hgb (12.9-16.9) g/dL Hct (37.5-50.1) % MCV (83.0-100.0) fL MCH (28.0-33.3) pg MCHC (31.6-35.5) g/dL RDW (11.5-14.5) % Plt Count (140-400) K/mcL MPV (9.4-12.4) fL Immature Gran % (0-4) % Seg Neutrophils % % Lymphocytes % % Monocytes % % Eosinophils % % Basophils % % Neutrophils # (1.6-8.9) K/mcL Lymphocytes # (0.6-4.6) K/mcL Monocytes # (0.0-1.3) K/mcL Eosinophils # (0.0-0.6) K/mcL Basophils # (0.0-0.2) K/mcL Sodium 138 (136-145) mEq/L Potassium 4.1 (3.5-5.1) mEq/L Chloride 104 (98-107) mEq/L Carbon Dioxide 25 (23-29) mEq/L BUN 32 H (8-23) mg/dL Creatinine 2.45 H (0.70-1.30) mg/dL Est GFR ( Amer) 30 L (> 60) Est GFR (Non-Af Amer) 25 L (> 60) BUN/Creatinine Ratio 13 (6-26) Glucose 147 H (70-105) mg/dL POC Glucose (70-99) mg/dL Calculated Osmolality 296 (280-300) Lactic Acid (0.5-2.2) mmol/L Calcium 8.7 (8.6-10.3) mg/dL Troponin I < 0.03 (< 0.04) ng/mL B-Natriuretic Peptide 34 (Less than 100) pg/mL Urine Color Dark Yellow (Yellow) Urine Clarity Clear (Clear) Urine pH 5.0 (5.0-8.0) pH Units Ur Specific [place] 1.025 (1.010-1.025) Urine Protein Negative (Neg-Trace) mg/dL Urine Glucose (UA) Normal (Normal) mg/dL Urine Ketones Negative (Negative) mg/dL Urine Blood Negative (Negative) Urine Nitrite Negative (Negative) Urine Bilirubin Small H (Negative) Urine Urobilinogen Normal (Normal) mg/dL Ur Leukocyte Esterase Negative (Negative) Ur Culture Indicated? NO (NO) - EKG Data EKG shows normal: Reports: sinus rhythm, axis, intervals Rate: Reports: normal [place]/QRS: Reports: normal, RBBB (incomplete) Heart block present: Reports: 1st Degree When compared to previous EKG there are: no significant changes Interpretation: Reports: no acute changes Attestation Statement - Attestation Attestation: I, Demetri Horan DO, examined this patient [id number] and my medical decision-making was reviewed with Hakeem Lomax PGY-1, Resident Physician. I agree with the documented findings, disposition and treatment plan as described except to the extent set forth below. Please see my progress notes for details.
[2018-01-17 14:38] LABS: Bilirubin,Urine Small (Negative); Blood,Urine Negative (Negative); Clarity,Urine Clear (Clear); Color,Urine Dark Yellow (Yellow); Glucose,Urine (UA) Normal (Normal); Ketones,Urine Negative (Negative); Leukocyte Esterase,Urine Negative (Negative); Nitrite,Urine Negative (Negative); Protein,Urine Negative (Neg-Trace); Specific Gravity,Urine 1.025 (1.010-1.025); Urobilinogen,Urine Normal (Normal)
--- NOTE | 2018-01-17 15:09 | Emergency Department Note ---
Disposition Clinical Impression: SOB (shortness of breath), Hypoxia, Bradycardia Disposition: Admitted As Inpatient Condition: Fair Time of Disposition: 16:33 General Adult HPI - General Chief complaint: ED Shortness of Breath/Dyspnea Stated complaint: weakness/low O2 Time Seen by Provider: 01/17/18 13:24 Source: patient, family Limitations: no limitations - History of Present Illness Pain Scale: 0 - Related Data Home Medications Medication Instructions Recorded Confirmed Allopurinol [Zyloprim] 100 mg PO DAILY 05/13/15 01/17/18 Aspirin 81 mg PO DAILY 05/13/15 01/17/18 Cholecalciferol (Vitamin D3) 5,000 mg PO DAILY 05/13/15 01/17/18 [Vitamin D3] Losartan [Cozaar] 25 mg PO DAILY 05/13/15 01/17/18 Pantoprazole [Protonix] 40 mg PO DAILY 05/13/15 01/17/18 Sertraline HCl [Zoloft] 25 mg PO HS 05/13/15 01/17/18 Simvastatin [Zocor] 20 mg PO HS 05/13/15 01/17/18 Vitamin E 400 unit PO DAILY 05/13/15 01/17/18 Levothyroxine [Synthroid] 50 mcg PO DAILY 11/29/15 01/17/18 Ranitidine HCl [Zantac] 150 mg PO HS 12/12/15 01/17/18 Ferrous Gluconate 324 mg PO DAILY 01/12/17 01/17/18 Sennosides/Docusate Sodium [Senna 1 tab PO DAILY 01/12/17 01/17/18 Plus] Fluticasone/Vilanterol [Breo 1 puff IH DAILY 01/17/18 01/17/18 Ellipta 100-25 Mcg INH] Insulin ASPART [NovoLOG] 20 unit SQ TID 01/17/18 01/17/18 Insulin Degludec [Tresiba 50 unit SQ HS 01/17/18 01/17/18 Flextouch U-100] Linaclotide [Linzess] 290 mcg PO DAILY 01/17/18 01/17/18 Previous Rx's Medication Instructions Recorded Nitroglycerin 0.4 mg SL Q5MIN PRN #10 tab.subl 05/14/15 Isosorbide MONOnitrate (24 HR) 30 mg PO DAILY #30 tab.er.24h 04/29/16 [Imdur] Metoprolol Tartrate [Lopressor] 50 mg PO BID #60 tablet 04/29/16 Albuterol Sulfate [Albuterol 2 puff IH Q4H PRN 30 Days inh 10/21/16 Inhaler] Furosemide [Lasix] 40 mg PO DAILY #30 tablet 03/08/17 Polyethylene Glycol 3350 [MiraLAX] 17 gm PO DAILY #7 powd.pack 11/14/17 Allergies Allergy/AdvReac Type Severity Reaction Status Date / Time morphine Allergy Rash Verified 01/12/17 20:47 Constitutional: Reports: weight change (7 pounds in the past week). Denies: fever, chills, weakness Cardiovascular: Reports: chest pain, dyspnea on exertion, orthopnea Respiratory: Reports: cough, dyspnea, sputum production. Denies: wheezes Gastrointestinal: Denies: abdominal pain, nausea, vomiting, diarrhea, constipation, hematemesis, melena, hematochezia Genitourinary: Denies: urgency, dysuria, frequency, hematuria Past Medical History - Past Medical History Medical history: Reports: CHF, COPD, coronary artery disease, DVT, diabetes, hyperlipidemia, hypertension, myocardial infarction, pulmonary embolus, renal disease Surgical history: Reports: cholecystectomy, herniorrhaphy, other, IVC Filter Psychiatric history: Reports: no psych history - Social History Smoking Status: Never smoker Smokeless Tobacco Status: No Alcohol use: Reports: none Drug use: Reports: none Physical Exam - General Limitations: no limitations General appearance: alert, in distress Course Vital Signs Temperature 97.9 F 01/17/18 13:17 Pulse Rate 60 01/17/18 13:17 Respiratory Rate 20 01/17/18 13:17 Blood Pressure 103/62 01/17/18 13:17 O2 Sat by Pulse Oximetry 94 01/17/18 13:17 Temperature 97.9 F 01/17/18 13:17 Pulse Rate 56 01/17/18 14:48 Respiratory Rate 18 01/17/18 14:48 Blood Pressure 115/69 01/17/18 14:48 O2 Sat by Pulse Oximetry 94 01/17/18 14:48 Oxygen Delivery Oxygen Delivery Nasal Cannula Medical Decision Making - Lab Data Result diagrams: 01/17/18 14:01 01/17/18 14:01 Lab Results 01/17/18 01/17/18 01/17/18 Range/Units 13:31 13:50 14:01 WBC 10.1 (4.3-11.1) K/mcL RBC 4.77 (4.19-5.50) M/mcL Hgb 14.1 (12.9-16.9) g/dL Hct 43.3 (37.5-50.1) % MCV 90.8 (83.0-100.0) fL MCH 29.6 (28.0-33.3) pg MCHC 32.6 (31.6-35.5) g/dL RDW 15.9 H (11.5-14.5) % Plt Count 232 (140-400) K/mcL MPV 11.7 (9.4-12.4) fL Immature Gran % 0.9 (0-4) % Seg Neutrophils % 62.4 % Lymphocytes % 24.0 % Monocytes % 7.6 % Eosinophils % 4.0 % Basophils % 1.1 % Neutrophils # 6.3 (1.6-8.9) K/mcL Lymphocytes # 2.4 (0.6-4.6) K/mcL Monocytes # 0.8 (0.0-1.3) K/mcL Eosinophils # 0.4 (0.0-0.6) K/mcL Basophils # 0.1 (0.0-0.2) K/mcL Sodium (136-145) mEq/L Potassium (3.5-5.1) mEq/L Chloride (98-107) mEq/L Carbon Dioxide (23-29) mEq/L BUN (8-23) mg/dL Creatinine (0.70-1.30) mg/dL Est GFR ( Amer) (> 60) Est GFR (Non-Af Amer) (> 60) BUN/Creatinine Ratio (6-26) Glucose (70-105) mg/dL POC Glucose 148 H (70-99) mg/dL Calculated Osmolality (280-300) Lactic Acid 2.1 (0.5-2.2) mmol/L Calcium (8.6-10.3) mg/dL Troponin I (< 0.04) ng/mL B-Natriuretic Peptide (Less than 100) pg/mL Urine Color (Yellow) Urine Clarity (Clear) Urine pH (5.0-8.0) pH Units Ur Specific [place] (1.010-1.025) Urine Protein (Neg-Trace) mg/dL Urine Glucose (UA) (Normal) mg/dL Urine Ketones (Negative) mg/dL Urine Blood (Negative) Urine Nitrite (Negative) Urine Bilirubin (Negative) Urine Urobilinogen (Normal) mg/dL Ur Leukocyte Esterase (Negative) Ur Culture Indicated? (NO) 01/17/18 01/17/18 01/17/18 Range/Units 14:01 14:01 14:11 WBC (4.3-11.1) K/mcL RBC (4.19-5.50) M/mcL Hgb (12.9-16.9) g/dL Hct (37.5-50.1) % MCV (83.0-100.0) fL MCH (28.0-33.3) pg MCHC (31.6-35.5) g/dL RDW (11.5-14.5) % Plt Count (140-400) K/mcL MPV (9.4-12.4) fL Immature Gran % (0-4) % Seg Neutrophils % % Lymphocytes % % Monocytes % % Eosinophils % % Basophils % % Neutrophils # (1.6-8.9) K/mcL Lymphocytes # (0.6-4.6) K/mcL Monocytes # (0.0-1.3) K/mcL Eosinophils # (0.0-0.6) K/mcL Basophils # (0.0-0.2) K/mcL Sodium 138 (136-145) mEq/L Potassium 4.1 (3.5-5.1) mEq/L Chloride 104 (98-107) mEq/L Carbon Dioxide 25 (23-29) mEq/L BUN 32 H (8-23) mg/dL Creatinine 2.45 H (0.70-1.30) mg/dL Est GFR ( Amer) 30 L (> 60) Est GFR (Non-Af Amer) 25 L (> 60) BUN/Creatinine Ratio 13 (6-26) Glucose 147 H (70-105) mg/dL POC Glucose (70-99) mg/dL Calculated Osmolality 296 (280-300) Lactic Acid (0.5-2.2) mmol/L Calcium 8.7 (8.6-10.3) mg/dL Troponin I < 0.03 (< 0.04) ng/mL B-Natriuretic Peptide 34 (Less than 100) pg/mL Urine Color Dark Yellow (Yellow) Urine Clarity Clear (Clear) Urine pH 5.0 (5.0-8.0) pH Units Ur Specific [place] 1.025 (1.010-1.025) Urine Protein Negative (Neg-Trace) mg/dL Urine Glucose (UA) Normal (Normal) mg/dL Urine Ketones Negative (Negative) mg/dL Urine Blood Negative (Negative) Urine Nitrite Negative (Negative) Urine Bilirubin Small H (Negative) Urine Urobilinogen Normal (Normal) mg/dL Ur Leukocyte Esterase Negative (Negative) Ur Culture Indicated? NO (NO) Attestation Statement - Attestation Attestation: I, Demetri Horan DO, examined this patient [id number] and my medical decision-making was reviewed with Hakeem Lomax PGY-1, Resident Physician. I agree with the documented findings, disposition and treatment plan as described except to the extent set forth below. Please see my progress notes for details. Fluid overload, cardiac related disease or illness. Patient has not had any new medication changes or other issues at this point. Currently denying chest pain fevers chills nausea vomiting or diarrhea. Denies any headache or vision change. Denies any falls or trauma within the last several days. Patient has had shortness of breath that is been progressively getting worse. This morning he had hypoxia down into the low 80s. Patient typically uses oxygen intermittently at home and has not had to use it over the last several days but today he felt that he needed at 24 hours a day to not be short of breath. Physical exam shows a well-appearing male who does have some conversational dyspnea. His lungs appear to be clear on exam his heart is regular. Abdomen is soft nontender nondistended. His heart rate is bradycardic on presentation. His pulse ox does fluctuate down to 89% and then up to 96 on 2 L of oxygen. Patient does have some slight pitting edema in the bilateral lower extremities up to the ankle has normal pulses in the DP and PT distributions are symmetric bilaterally. He does move all 4 of his extremities with purpose and falls commands appropriately. He has no neurologic deficits or issues noted on evaluation. She is concerning for fluid overload versus progression of congestive heart failure versus cardiac related illness or symptoms are causing the presentation here today. Patient does have chronic renal insufficiency. He is currently not on a blood thinners other medications. He takes a baby aspirin daily. Patient will be given an aspirin here at chest x-ray EKG labs including CBC chemistry troponin and BNP. Urinalysis also be added on. Disposition pending the full workup and treatment course at this time. Patient will most likely require admission. CT imaging of the head will also be added on secondary to the patient having some mild confusion this morning. Patient appears stable during my initial evaluation. See detailed documentation of the physical exam, medical intervention, medical decision-making and disposition in the resident physician's note. No critical care provider the patient's treatment course. 1540 CT imaging of the head is unremarkable. Chest x-ray does not show any acute signs of infection or pulmonary congestion. BNP and troponin are stable. Patient is still conversationally dyspneic and hypoxic. He also is bradycardic. Concern is noted for symptomatically bradycardia hypoxia and possible underlying cardiac etiology. Patient will be recommended for admission at this time for further management. Patient will be discussed with the hospitalist. No other recommendations at this time. Patient will most likely require ventilation perfusion scan versus CT imaging cardiac evaluation this hospital course of care. Patient otherwise currently stable admission process will be completed this time
[2018-01-17] MEDS ORDERED: Naloxone 0.4 MG/ML INJ IVP PRN (19:41)
[2018-01-17] MEDS ORDERED: Nitroglycerin 0.4 MG TAB.SUBL SL PRN (19:50)
[2018-01-17] MEDS ORDERED: *HR* Dextrose 50 % in Water (Syg) 50 ML SYRINGE IVP PRN (19:54)
[2018-01-17] MEDS ORDERED: D5% in Water 1,000 ML IVC PRN (19:54)
[2018-01-17] MEDS ORDERED: Dextrose Gel 15 GM/37.5 ML TUBE PO PRN ×2 (19:54)
--- NOTE | 2018-01-17 20:06 | Internal Med History&Physical ---
Date of Encounter: 01/17/18 Time of Encounter: 19:56 Internal Medicine - H&P: HPI Chief complaint: Shortness of breath Admitted From: Home Plans for Post Hospital Care: Home History of present illness: Mr. 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 Patient is hard of hearing and poor historian therefore mostly history was obtained from his son who was at bedside. As per son patient had progressive shortness of breath for a few days but has been saturating 90% of her but today morning he had severe short of breath with oxygen saturation in the 80s therefore son got concerned and brought to ER. His son also noticed that he has gained almost 6 pounds in last 2 weeks and slight swelling in lower extremity more on the left side. Patient also complained of left leg pain that also include ankle. Patient to get occasional attack of gout on the same leg as well. and gaining weight for last though he has been taking his home dose of Lasix routinely. Patient also admit to chest tightness earlier this morning lasted almost 1 hour. At this time he denies any chest pain and also feeling a lot better and shortness of breath after receiving oxygen. In ER initial troponin negative with no acute ST-T wave change in EKG, normal BNP but no d- dimer done. Chest x-ray with bibasilar atelectasis but no acute infiltrate. ER physician called on-call hospitalists for the evaluation of shortness of breath and rule out PE. Patient denies fever, chills, nausea, vomiting, any abdominal pain, urinary or bowel complaint. Patient had mild cough for 2 days with white sputum. Denies any headache, dizziness, tingling numbness or motor weakness, melena or hematochezia. Denies any dysuria or hematuria. Past Med Surg Social Fam HX - Past Medical History Medical history: CHF, COPD, coronary artery disease, DVT, diabetes, hyperlipidemia, hypertension, myocardial infarction, pulmonary embolus, renal disease Psychiatric history: no psych history - Past Surgical History Surgical History: cholecystectomy, herniorrhaphy, other, IVC Filter - Social History Smoking Status: Never smoker Smokeless Tobacco Status: No Alcohol use: none Drug use: none - Family History Brother Hx Family Cardiac Disorders: Yes (NM) Father Family Member Ethnicity: Non- Living Status: Hx Family Cardiac Disorders: No Hx Family Respiratory Disorders: No Hx Family Cancer: No Hx Family GI Disorders: No Hx Family Endocrine Disorder: No Hx Family Neuromuscular Disorders: No Hx Family Neurologic Disorders: No Hx Family HEENT Disorders: No Hx Family Autoimmune Disorders: No Internal Medicine - H&P: Meds Allopurinol [Zyloprim] 100 mg PO DAILY 05/13/15 [History] Aspirin 81 mg PO DAILY 05/13/15 [History] Cholecalciferol (Vitamin D3) [Vitamin D3] 5,000 mg PO DAILY 05/13/15 [History] Losartan [Cozaar] 25 mg PO DAILY 05/13/15 [History] Pantoprazole [Protonix] 40 mg PO DAILY 05/13/15 [History] Sertraline HCl [Zoloft] 25 mg PO HS 05/13/15 [History] Simvastatin [Zocor] 20 mg PO HS 05/13/15 [History] Vitamin E 400 unit PO DAILY 05/13/15 [History] Nitroglycerin 0.4 mg SL Q5MIN PRN #10 tab.subl 05/14/15 [Rx] Levothyroxine [Synthroid] 50 mcg PO DAILY 11/29/15 [History] Ranitidine HCl [Zantac] 150 mg PO HS 12/12/15 [History] Isosorbide MONOnitrate (24 HR) [Imdur] 30 mg PO DAILY #30 tab.er.24h 04/29/16 [ Rx] Metoprolol Tartrate [Lopressor] 50 mg PO BID #60 tablet 04/29/16 [Rx] Albuterol Sulfate [Albuterol Inhaler] 2 puff IH Q4H PRN 30 Days inh 10/21/16 [ Rx] Ferrous Gluconate 324 mg PO DAILY 01/12/17 [History] Sennosides/Docusate Sodium [Senna Plus] 1 tab PO DAILY 01/12/17 [History] Furosemide [Lasix] 40 mg PO DAILY #30 tablet 03/08/17 [Rx] Polyethylene Glycol 3350 [MiraLAX] 17 gm PO DAILY #7 powd.pack 11/14/17 [Rx] Fluticasone/Vilanterol [Breo Ellipta 100-25 Mcg INH] 1 puff IH DAILY 01/17/18 [ History] Insulin ASPART [NovoLOG] 20 unit SQ TID 01/17/18 [History] Insulin Degludec [Tresiba Flextouch U-100] 50 unit SQ HS 01/17/18 [History] Linaclotide [Linzess] 290 mcg PO DAILY 01/17/18 [History] 3 Allergy/AdvReac Type Severity Reaction Status Date / Time morphine Allergy Rash Verified 01/12/17 20:47 All Systems PM: as documented above in the HPI. - Constitutional Vitals: Temp Pulse Resp BP Pulse Ox 98.1 F 54 17 173/87 96 01/17/18 18:53 01/17/18 18:53 01/17/18 18:53 01/17/18 18:53 01/17/18 18:53 Exam: General appearance: No acute distress, A&O X 3, oxygen by nasal cannula 2 L, son at bedside Head exam: Atraumatic Eye exam: EOMI, PERRLA ENT exam: Moist oral mucosa Neck nontender, supple Respiratory exam: Clear to auscultation bilaterally Cardiovascular exam: Regular rate and rhythm, no systolic murmur Abdominal exam: Soft, nontender, nondistended, positive bowel sounds, obese Extremities exam: +1 pedal edema bilaterally but more on the left side. Questionable Homans sign positive on left side Skin-no rash, warm, dry, intact Neurological exam: Alert, awake, oriented 3, CN II-XII intact, no focal deficits. No facial droop. Normal speech. Internal Med - H&P Results - Labs CBC & Chem 7: 01/17/18 14:01 01/17/18 14:01 - Assessment and plan (1) Shortness of breath Current Visit: Yes Status: Acute Assessment and plan: Multiple differential cardiac versus pulmonary. Hiatus patient. Has history of DVT and PE but not on any anticoagulation due to risk of GI bleed in the past. D-dimer ordered if is positive will consider VQ scan but avoid the unnecessary dye exposure due to history of CKD. Discussed with patient and family about the possibility to his start anticoagulation therapy if any concern for PE. Patient had history of bleeding in the past but after discussing risk and benefit patient agreed for anticoagulation therapy if needed. Doppler venous ultrasound of left leg also ordered. There is also possibility of underlying CHF exacerbation as patient is gaining weight with pedal edema but normal BNP and also lung sounds clear. Lasix IV 40 mg daily with a strict I&O's. Echocardiogram ordered. Will also do serial monitoring of troponin to rule out under lying ACS though initial troponin is negative with no acute finding in EKG. Continue aspirin, beta jaron, nitroglycerin and oxygen. ABG also ordered. Telemetry. (2) Hypoxia Current Visit: Yes Status: Acute Assessment and plan: Due to underlying etiology. Oxygen supplementation. ABG ordered. Pulse oximetry. (3) Diabetes mellitus Current Visit: Yes Status: Acute Assessment and plan: Patient has low blood glucose level at present on the floor therefore will hold his home insulin dose but continue Accu-Chek and sliding scale insulin. A1c ordered. 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 Acute on CK D. Avoid nephrotoxic drug. Changed oral to IV Lasix further diuresis to see if it is contributing factor to increased creatinine level. But if creatinine level get worse then it needs to get adjusted. His scrap baller Dr. Baca can be consulted tomorrow morning by attending physician if needed (5) DVT prophylaxis Current Visit: Yes Status: Acute Assessment and plan: Heparin, SCDs - Time Spent With Patient Total time spent is greater than 50% in coordination of care (as documented) at patient's floor/unit and/or counseling patient:
[2018-01-17 20:44] LABS: ABG Base Excess 1 mEq/L (-2 to 3); ABG HCO3 25 mEq/L (21-27); ABG Oxygen Saturation 94 % (95-98); ABG PCO2 39 mmHg (35-45); ABG PH 7.42 pH Units (7.32-7.45); ABG PO2 70 mmHg (85-104); ABG TCO2 26 mEq/L (20-26)
[2018-01-17 20:50] LABS: Troponin I < 0.03 ng/mL (< 0.04); Uric Acid 9.8 mg/dL (2.3-7.6)
[2018-01-17] MEDS ORDERED: Famotidine 20 MG TABLET PO SCH (21:00)
[2018-01-17] MEDS ORDERED: *HR* Heparin 5,000 UNIT/ML VIAL IVP ONE (21:11)
[2018-01-17] MEDS ORDERED: *HR* Heparin 5,000 UNIT/ML VIAL IVP PRN ×2 (21:11)
[2018-01-17 21:21] LABS: Hematocrit 45.2 % (37.5-50.1); Hemoglobin 14.7 g/dL (12.9-16.9); Mean Corpuscular HGB Conc 32.5 g/dL (31.6-35.5); Mean Corpuscular Hemoglobin 29.8 pg (28.0-33.3); Mean Corpuscular Volume 91.5 fL (83.0-100.0); Mean Platelet Volume 11.5 fL (9.4-12.4); Platelet Count 193 K/mcL (140-400); Red Blood Count 4.94 M/mcL (4.19-5.50); Red Cell Distribution Width 16.2 % (11.5-14.5)
[2018-01-17 21:38] LABS: INR 1.1; Prothrombin Time 11.5 Seconds (9.4-12.1)
[2018-01-17 21:40] LABS: Activated Partial Thrombo Time 32.4 Seconds (26.0-36.0)
[2018-01-17] MEDS ORDERED: *HR* Heparin 5,000 UNIT/ML VIAL SQ SCH (22:00)
[2018-01-17] MEDS: Heparin 25,000 UNIT/500 ML D5W 25,000 UNIT/500 ML BAG IVC SCH (22:56)
[2018-01-18] MEDS: Insulin LISPRO 300 UNITS/3 ML VIAL SQ SCH ×4 (00:54→18:04)
[2018-01-18 01:37] LABS: Basophils # 0.1 K/mcL (0.0-0.2); Eosinophils # 0.4 K/mcL (0.0-0.6); Eosinophils % 4.2 %; Hematocrit 42.2 % (37.5-50.1); Hemoglobin 13.8 g/dL (12.9-16.9); Immature Granulocytes % 0.5 % (0-4); Lymphocytes # 2.7 K/mcL (0.6-4.6); Lymphocytes % 28.1 %; Mean Corpuscular HGB Conc 32.7 g/dL (31.6-35.5); Mean Corpuscular Hemoglobin 29.3 pg (28.0-33.3); Mean Corpuscular Volume 89.6 fL (83.0-100.0); Mean Platelet Volume 11.5 fL (9.4-12.4); Monocytes # 0.7 K/mcL (0.0-1.3); Monocytes % 7.3 %; Neutrophils # 5.7 K/mcL (1.6-8.9); Platelet Count 195 K/mcL (140-400); Red Blood Count 4.71 M/mcL (4.19-5.50); Red Cell Distribution Width 15.8 % (11.5-14.5); Segmented Neutrophils % 58.9 %
[2018-01-18 01:56] LABS: Albumin 3.4 g/dL (3.5-5.7); Albumin/Globulin Ratio 1.4 (1.1-2.2); Bilirubin,Total 0.6 mg/dL (0.3-1.0); Calcium 8.5 mg/dL (8.6-10.3); Globulin 2.5 g/dL (2.4-3.5); Potassium 3.9 mEq/L (3.5-5.1); Total Protein 5.9 g/dL (6.4-8.9)
[2018-01-18] MEDS ORDERED: Pantoprazole 40 MG VIAL IVC SCH (06:30)
[2018-01-18 07:53] LABS: Activated Partial Thrombo Time 137.6 Seconds (26.0-36.0)
[2018-01-18 08:05] LABS: Heparin anti-factor XA UFH 0.85 IU/mL (0.30-0.70)
--- NOTE | 2018-01-18 08:42 | Internal Med Progress Note ---
<David Haynes - Last Filed: 01/18/18 13:43> Date of Encounter: 01/18/18 Time of Encounter: 08:41 - Assessment and plan (1) Shortness of breath Current Visit: Yes Status: Acute Assessment and plan: PE as noted by V/Q scan after elevated d-dimer per plan in assessment above. Has history of dvt and PT, not on anticoagulation due to possible GI bleed in the past. Previously known to be on warfarin, but was unable to keep a steady INR level. Possible CHF exacerbation, but normal BNP 34 and lungs clear on exam -Strict I&Os -Echo pending. -Discussion of anticoagulation per plan in assessment above. (2) Hypoxia Current Visit: Yes Status: Resolved Assessment and plan: Satting at 94% on 2L nasal cannula. ABG with hypoxia. Continue monitoring vitals and supplemental oxygen. (3) Diabetes mellitus Current Visit: Yes Status: Chronic Assessment and plan: Known history of diabetes. A1C 9.0 Glucose at 192 this morning on labs. Continue with cardiac and renal diet. Continue with low corrective insulin. Qualifiers: Diabetes mellitus type: type 2 Diabetes mellitus assisted insulin use: with termite exterminator helper use Diabetes mellitus complication status: with kidney complications Diabetes mellitus complication detail: with chronic kidney disease Chronic kidney disease stage: stage 4 (severe) Qualified Code(s): E11.22 - Type 2 diabetes mellitus with diabetic chronic kidney disease; N18.4 - Chronic kidney disease, stage 4 (severe); N18.4 - Chronic kidney disease, stage 4 (severe); N18.4 - Chronic kidney disease, stage 4 (severe); N18.4 - Chronic kidney disease, stage 4 (severe); Z79.4 - termite exterminator helper (current) use of insulin; Z79.4 - termite exterminator helper (current) use of insulin; Z79.4 - termite exterminator helper (current) use of insulin; Z79.4 - FDC (current) use of insulin (4) CKD (chronic kidney disease) stage 4, GFR 15-29 ml/min Current Visit: Yes Status: Chronic Assessment and plan: Known history of CKD stage 4, followed by [facility]. Cr 2.26 this morning, slightly improved from 2.45 on admission. Continue with renal protective strategy, avoid nephrotoxic agents. Discontinue Lasix as acute shortness of breath and hypoxia most likely due to PE. -Echo ordered. -Continue monitoring labs. -Consider consulting Nephro if kidney function worsens. (5) DVT prophylaxis Current Visit: Yes Status: Acute Assessment and plan: Continue with heparin and IPCD (6) Pulmonary embolism Current Visit: Yes Status: Acute Assessment and plan: Patient presented with shortness of breath for couple days prior to arrive. Patient has a known history of dvt/pe and was on anticoagulation in the past, but was unable to be controlled while on warfarin. V/Q scan revealed intermediate probability 20-80% pE singe segment V/Q mismatch of anterior Left upper lobe. D-dimer 1566. Discussed with patient risks and benefits of anticoagulation and treatment options for PE. Medical POA not at bedside and patient is AxO to person, place , and situation, not time. No prior history of falls and reports being mobile on own without assistive devices. Does also have a history of possible gi bleed. -Echo pending -Ultrasound bilateral LE ordered -Continue with heparin drip Qualifiers: Pulmonary embolism type: other Chronicity: acute Acute cor pulmonale presence: without acute cor pulmonale Qualified Code(s): I26.99 - Other pulmonary embolism without acute cor pulmonale - Time Spent With Patient Total time spent is greater than 50% in coordination of care (as documented) at patient's floor/unit and/or counseling patient: - Subjective Interval history: Patient is AxO to person, place, and situation, not time. Son at bedside, not the Medical poa. Patient reports doing better overnight, less short of breath and no chest pain. Review of note from admitting provider mentioned that the family would be okay with blood thinners, but will have to discuss with medical POA later today. Denies fevers, chills, sweats, nausea, vomiting, headaches, lightheadedness, chest pain, abdominal pain, changes in bowels or bladder, decreased urination, weakness, loss of sensation, or rash. - Constitutional Vitals: Temp Pulse Resp BP Pulse Ox 98.1 F 57 18 159/78 94 01/17/18 18:53 01/18/18 06:38 01/18/18 06:38 01/18/18 06:38 01/18/18 06:38 General appearance: Present: A&O X 2 (to person, place, situation, not time.), pleasant, no acute distress, answers questions appropriately Exam: hard of hearing, left ear better - Head Head exam: Present: atraumatic, normal inspection, normocephalic - Eye Eye exam: Present: EOMI, PERRL Additional comments: subconjunctival bleeding noted left eye - ENT ENT exam: Present: mucous membranes moist, normal exam - Neck Neck exam general surgery: Present: full ROM, normal inspection - Respiratory Respiratory exam: Present: CTAB. Absent: rales, respiratory distress, rhonchi, wheezes, tachypnea Additional comments: satting well on 2L nasal cannula - Cardiovascular Cardiovascular exam: Present: RRR, +S1, +S2 - GI/Abdominal GI/Abdominal exam: Present: normal bowel sounds, soft. Absent: tenderness - Extremities Exam Extremities exam: Present: normal inspection, warm, radial pulses palpable and symmetrical. Absent: pedal edema, tenderness - Skin Skin exam: Present: dry, intact, normal color, warm Internal Medicine: Result - Labs CBC & Chem 7: 01/18/18 01:22 01/18/18 01:22 Labs: Short CBC 01/17/18 01/18/18 Range/Units 20:09 01:22 WBC 9.1 9.7 (4.3-11.1) K/mcL Hgb 14.7 13.8 (12.9-16.9) g/dL Hct 45.2 42.2 (37.5-50.1) % Plt Count 193 195 (140-400) K/mcL Neutrophils # 5.7 (1.6-8.9) K/mcL BMP 01/18/18 01:22 Sodium 139 Potassium 3.9 Chloride 104 Carbon Dioxide 25 BUN 32 H Creatinine 2.26 H Glucose 192 H Calcium 8.5 L Cardiac Enzymes 01/17/18 01/18/18 Range/Units 20:09 01:22 Troponin I < 0.03 < 0.03 (< 0.04) ng/mL Liver Function 01/18/18 Range/Units 01:22 Total Bilirubin 0.6 (0.3-1.0) mg/dL AST 16 (13-39) Units/L ALT 14 (7-52) Units/L Alkaline Phosphatase 68 (34-104) Units/L Albumin 3.4 L (3.5-5.7) g/dL - ABG Interpretation ABG results: ABG ABG pH 7.42 pH Units (7.32-7.45) 01/17/18 20:40 ABG pCO2 39 mmHg (35-45) 01/17/18 20:40 ABG pO2 70 mmHg (85-104) L 01/17/18 20:40 ABG O2 Saturation 94 % (95-98) L 01/17/18 20:40 PT/INR, D-dimer PT 11.5 Seconds (9.4-12.1) 01/17/18 20:09 D-Dimer 1566 ng/mLFEU (0-500) H 01/17/18 20:09 - Impressions Impressions Pulmonary Perfusion Imaging 01/17/18 21:11 IMPRESSION: 1. Intermediate probability (20-80%) for pulmonary embolism. 2. Single segment V/Q mismatch with decreased perfusion involving the anterior segment of the left upper lobe. D/ / Yomi Carlton MD / Yomi Carlton MD Interpreting Provider: Yomi Carlton MD Consult Discharge Plan - Plan Referrals: Lio Gold CNP [Primary Care Provider] - <Kaleb Rodriguez - Last Filed: 01/18/18 16:42> Date of Encounter: 01/18/18 - Assessment and plan (1) CKD (chronic kidney disease) stage 4, GFR 15-29 ml/min Current Visit: Yes Status: Chronic (2) Shortness of breath Current Visit: Yes Status: Acute (3) Hypoxia Current Visit: Yes Status: Resolved (4) Diabetes mellitus Current Visit: Yes Status: Chronic Qualifiers: Diabetes mellitus type: type 2 Diabetes mellitus assisted insulin use: with assisted use Diabetes mellitus complication status: with kidney complications Diabetes mellitus complication detail: with chronic kidney disease Chronic kidney disease stage: stage 4 (severe) Qualified Code(s): E11.22 - Type 2 diabetes mellitus with diabetic chronic kidney disease; N18.4 - Chronic kidney disease, stage 4 (severe); N18.4 - Chronic kidney disease, stage 4 (severe); N18.4 - Chronic kidney disease, stage 4 (severe); N18.4 - Chronic kidney disease, stage 4 (severe); Z79.4 - termite exterminator helper (current) use of insulin; Z79.4 - FDC (current) use of insulin; Z79.4 - FDC (current) use of insulin; Z79.4 - FDC (current) use of insulin (5) DVT prophylaxis Current Visit: Yes Status: Acute (6) Pulmonary embolism Current Visit: Yes Status: Acute Qualifiers: Pulmonary embolism type: other Chronicity: acute Acute cor pulmonale presence: without acute cor pulmonale Qualified Code(s): I26.99 - Other pulmonary embolism without acute cor pulmonale - Time Spent With Patient Total time spent is greater than 50% in coordination of care (as documented) at patient's floor/unit and/or counseling patient: - Constitutional Vitals: Temp Pulse Resp BP Pulse Ox 97.5 F L 65 18 130/86 93 01/18/18 14:56 01/18/18 14:56 01/18/18 14:56 01/18/18 14:56 01/18/18 14:56 Internal Medicine: Result - Labs CBC & Chem 7: 01/18/18 01:22 01/18/18 01:22 Labs: Short CBC 01/17/18 01/18/18 Range/Units 20:09 01:22 WBC 9.1 9.7 (4.3-11.1) K/mcL Hgb 14.7 13.8 (12.9-16.9) g/dL Hct 45.2 42.2 (37.5-50.1) % Plt Count 193 195 (140-400) K/mcL Neutrophils # 5.7 (1.6-8.9) K/mcL BMP 01/18/18 01:22 Sodium 139 Potassium 3.9 Chloride 104 Carbon Dioxide 25 BUN 32 H Creatinine 2.26 H Glucose 192 H Calcium 8.5 L Cardiac Enzymes 01/17/18 01/18/18 01/18/18 Range/Units 20:09 01:22 08:04 Troponin I < 0.03 < 0.03 < 0.03 (< 0.04) ng/mL Liver Function 01/18/18 Range/Units 01:22 Total Bilirubin 0.6 (0.3-1.0) mg/dL AST 16 (13-39) Units/L ALT 14 (7-52) Units/L Alkaline Phosphatase 68 (34-104) Units/L Albumin 3.4 L (3.5-5.7) g/dL - ABG Interpretation ABG results: ABG ABG pH 7.42 pH Units (7.32-7.45) 01/17/18 20:40 ABG pCO2 39 mmHg (35-45) 01/17/18 20:40 ABG pO2 70 mmHg (85-104) L 01/17/18 20:40 ABG O2 Saturation 94 % (95-98) L 01/17/18 20:40 PT/INR, D-dimer PT 12.1 Seconds (9.4-12.1) 01/18/18 14:39 D-Dimer 1566 ng/mLFEU (0-500) H 01/17/18 20:09 - Impressions Impressions Pulmonary Perfusion Imaging 01/17/18 21:11 IMPRESSION: 1. Intermediate probability (20-80%) for pulmonary embolism. 2. Single segment V/Q mismatch with decreased perfusion involving the anterior segment of the left upper lobe. D/ / Yomi Carlton MD / Yomi Carlton MD Interpreting Provider: Yomi Carlton MD - Attending Attestation I examined this patient 01/18, and my medical decision-making was reviewed with the Resident Physician. I agree with the documented findings, disposition and treatment plan as described except to the extent set forth below. 87-year-old male admitted and being managed for acute hypoxic respiratory failure secondary to acute unprovoked urinary embolism, as well as left lower extremity DVT, SVT. Has a history of prior DVT with an IVC filter placed, A. fib, issue with Coumadin compliance in the past. History of GI bleed in the past Family concerned abot weakness-PTOT eval requested Plan is to obtain echocardiogram, continue heparin drip and bridged with warfarin, continue fingerstick monitoring and insulin, avoid nephrotoxins monitor renal function. Patient and the family at the bedside extensively educated on risk of bleeding, however wishes to proceed with anticoagulation. Rest of details as in the resident physician's documentation
[2018-01-18] MEDS ORDERED: [Breo Ellipta 100-25 Mcg IH SCH (09:00)
[2018-01-18 09:26] LABS: Estimated Average Glucose 212 mg/dl
[2018-01-18] MEDS: Furosemide 40 MG/4 ML VIAL IVP SCH (11:55)
[2018-01-18] MEDS: Isosorbide MONOnitrate (24 HR) 30 MG TAB.ER.24H PO SCH (11:56)
[2018-01-18] MEDS: Cholecalciferol (D-3) 1,000 UNIT TABLET PO SCH (11:56)
[2018-01-18] MEDS: Aspirin 81 MG TAB.CHEW PO SCH (11:57)
[2018-01-18] MEDS: Sennosides/Docusate Sodium TABLET PO SCH (11:58)
--- NOTE | 2018-01-18 14:45 | Event Note ---
Date of Encounter: 01/18/18 Time of Encounter: 14:45 Addendum to note: DVT: Preliminary report of bilateral lower extremity doppler: Left lower extremity venous duplex is positive for DVT in Gastrocnemius and SVT Greater Saphenous Vein below the knee. Discussed results with medical POA and family member about risks and benefits of warfarin. -Proceed with warfarin for anticoagulation -PT/OT consult
[2018-01-18 15:10] LABS: INR 1.1; Prothrombin Time 12.1 Seconds (9.4-12.1)
[2018-01-18] MEDS ORDERED: Warfarin perPT PO PRN (18:00)
[2018-01-18] MEDS ORDERED: *HR* Warfarin 4 MG TABLET PO ONE (18:00)
[2018-01-18] MEDS: Heparin 25,000 UNIT/500 ML D5W 25,000 UNIT/500 ML BAG IVC SCH ×2 (18:07→21:11)
[2018-01-18] MEDS: Ipratropium/Albuterol Neb 3 ML IH SCH ×2 (18:37→21:33)
[2018-01-18] MEDS: Famotidine 20 MG TABLET PO SCH (21:09)
[2018-01-19] MEDS: Insulin LISPRO 300 UNITS/3 ML VIAL SQ SCH ×5 (00:30→21:45)
[2018-01-19] MEDS: Ipratropium/Albuterol Neb 3 ML IH SCH ×4 (04:29→22:34)
[2018-01-19 06:35] LABS: Basophils # 0.1 K/mcL (0.0-0.2); Basophils % 1.1 %; Eosinophils # 0.4 K/mcL (0.0-0.6); Eosinophils % 4.2 %; Hematocrit 43.7 % (37.5-50.1); Hemoglobin 14.5 g/dL (12.9-16.9); Immature Granulocytes % 0.5 % (0-4); Lymphocytes # 2.4 K/mcL (0.6-4.6); Lymphocytes % 29.3 %; Mean Corpuscular HGB Conc 33.2 g/dL (31.6-35.5); Mean Corpuscular Hemoglobin 29.7 pg (28.0-33.3); Mean Corpuscular Volume 89.4 fL (83.0-100.0); Mean Platelet Volume 11.6 fL (9.4-12.4); Monocytes # 0.7 K/mcL (0.0-1.3); Monocytes % 8.7 %; Neutrophils # 4.7 K/mcL (1.6-8.9); Platelet Count 192 K/mcL (140-400); Red Blood Count 4.89 M/mcL (4.19-5.50); Red Cell Distribution Width 15.8 % (11.5-14.5); Segmented Neutrophils % 56.2 %
[2018-01-19 06:47] LABS: Calcium 8.9 mg/dL (8.6-10.3); Potassium 4.2 mEq/L (3.5-5.1)
[2018-01-19 08:05] LABS: INR 1.1
[2018-01-19 08:07] LABS: Activated Partial Thrombo Time 92.9 Seconds (26.0-36.0)
[2018-01-19] MEDS: Cholecalciferol (D-3) 1,000 UNIT TABLET PO SCH (08:45)
[2018-01-19] MEDS: Isosorbide MONOnitrate (24 HR) 30 MG TAB.ER.24H PO SCH (08:45)
[2018-01-19] MEDS: Sennosides/Docusate Sodium TABLET PO SCH (08:46)
[2018-01-19] MEDS: Aspirin 81 MG TAB.CHEW PO SCH (08:46)
[2018-01-19] MEDS: Furosemide 40 MG/4 ML VIAL IVP SCH (08:47)
--- NOTE | 2018-01-19 11:15 | Internal Med Progress Note ---
<Roni Woods - Last Filed: 01/19/18 11:13> Date of Encounter: 01/19/18 Time of Encounter: 11:13 - Assessment and plan (1) Acute respiratory failure with hypoxia Current Visit: Yes Status: Acute Assessment and plan: Secondary to pulmonary embolism with findings of acute left lower extremity DVT in the gastrocnemius and SVT in the great saphenous vein. Plan: We will continue duo nebs, supplemental oxygen. Patient will be bridged onto warfarin. (2) CKD (chronic kidney disease) stage 4, GFR 15-29 ml/min Current Visit: Yes Status: Chronic Assessment and plan: Stable continue monitor. (3) Diabetes mellitus Current Visit: Yes Status: Chronic Assessment and plan: Stable. Continue insulin regimen. 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 insulin use: with marine oil terminal superintendent use Diabetes mellitus complication status: with kidney complications Diabetes mellitus complication detail: with chronic kidney disease Chronic kidney disease stage: stage 4 (severe) Qualified Code(s): E11.22 - Type 2 diabetes mellitus with diabetic chronic kidney disease; N18.4 - Chronic kidney disease, stage 4 (severe); N18.4 - Chronic kidney disease, stage 4 (severe); N18.4 - Chronic kidney disease, stage 4 (severe); N18.4 - Chronic kidney disease, stage 4 (severe); 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 (5) Physical deconditioning Current Visit: Yes Status: Acute Assessment and plan: Physical therapy evaluated patient reported that he will benefit from skilled rehabilitation. Plan to discharge to [facility]. (6) Pulmonary embolism Current Visit: Yes Status: Acute Assessment and plan: V/Q showed intermediate probability of PE. Lower extremity Dopplers confirmed DVT in the left lower extremity. Echocardiogram shows LVEF of 55-60% without right heart strain. With mild left ventricular diastolic dysfunction. Plan as above. Qualifiers: Pulmonary embolism type: other Chronicity: acute Acute cor pulmonale presence: without acute cor pulmonale Qualified Code(s): I26.99 - Other pulmonary embolism without acute cor pulmonale - Time Spent With Patient Total time spent is greater than 50% in coordination of care (as documented) at patient's floor/unit and/or counseling patient: - Subjective Interval history: Patient had no acute overnight events. LE doppler showed LLE DVT. Patient remains in the hospital for bridging onto Coumadin. - Constitutional Vitals: Temp Pulse Resp BP Pulse Ox 97.9 F 62 20 133/81 91 01/19/18 07:26 01/19/18 07:26 01/19/18 10:36 01/19/18 07:26 01/19/18 10:36 General appearance: Present: A&O X 3, pleasant, no acute distress, answers questions appropriately - Other Additional findings: General: Pleasant without distress Heart: Regular rate and rhythm with no murmur Lungs: Clear to auscultation bilaterally Abdomen: Soft nontender, nondistended positive bowel sounds Skin: warm and dry, absent rash Extremities: Absent pedal edema, Neuro: Alert oriented 3 Vascular: Pedal and radial pulses 2 out of 4 Internal Medicine: Result - Labs CBC & Chem 7: 01/19/18 06:08 01/19/18 06:08 Labs: Short CBC 01/19/18 Range/Units 06:08 WBC 8.3 (4.3-11.1) K/mcL Hgb 14.5 (12.9-16.9) g/dL Hct 43.7 (37.5-50.1) % Plt Count 192 (140-400) K/mcL Neutrophils # 4.7 (1.6-8.9) K/mcL BMP 01/19/18 06:08 Sodium 139 Potassium 4.2 Chloride 103 Carbon Dioxide 23 BUN 31 H Creatinine 2.11 H Glucose 227 H Calcium 8.9 - ABG Interpretation ABG results: ABG ABG pH 7.42 pH Units (7.32-7.45) 01/17/18 20:40 ABG pCO2 39 mmHg (35-45) 01/17/18 20:40 ABG pO2 70 mmHg (85-104) L 01/17/18 20:40 ABG O2 Saturation 94 % (95-98) L 01/17/18 20:40 PT/INR, D-dimer PT 12.0 Seconds (9.4-12.1) 05/08/18 07:14 D-Dimer 1566 ng/mLFEU (0-500) H 01/17/18 20:09 - Impressions Impressions Echocardiogram 01/17/18 19:47 Impressions: LVEF 55-60%. Normal LV chamber size and function. Mild concentric left ventricular hypertrophy. Mild left ventricular diastolic dysfunction. Normal right ventricular structure and function. No evidence of pulmonary hypertension. No significant valvular dysfunction. Left Ventricular Wall Motion: Rest Echo Findings All wall segments showed normal motion. Findings: Study Quality * Technically adequate exam. ECG Findings * Normal sinus rhythm. Left Ventricle * LVEF 55-60%. * Normal LV chamber size and function. * Mild concentric left ventricular hypertrophy. * Mild left ventricular diastolic dysfunction. Right Ventricle * Normal right ventricular structure and function. Left Atrium * Mildly dilated left atrium. Right Atrium * Mildly dilated right atrium. Aortic Valve * Aortic valve not well visualized. * No aortic regurgitation. * No aortic stenosis. Mitral Valve * Normal mitral valve structure and function. * No mitral regurgitation. * No mitral stenosis. Tricuspid Valve * Normal tricuspid valve structure and function. * Trace tricuspid regurgitation. * No evidence of pulmonary hypertension. Pulmonic Valve * Pulmonic valve is not well visualized. * No pulmonic regurgitation. Aorta * Normally sized aortic root. Pericardium * There is a trivial pericardial effusion present. IVC * Normal IVC dimensions and inspiratory collapse. Pulmonary Artery * Normal visualized portions of the main pulmonary artery. Consult Discharge Plan - Plan Referrals: Lio Gold CNP [Primary Care Provider] - <Kaleb Rodriguez - Last Filed: 01/19/18 12:57> Date of Encounter: 01/19/18 - Assessment and plan (1) Acute respiratory failure with hypoxia Current Visit: Yes Status: Acute (2) Physical deconditioning Current Visit: Yes Status: Acute (3) CKD (chronic kidney disease) stage 4, GFR 15-29 ml/min Current Visit: Yes Status: Chronic (4) Diabetes mellitus Current Visit: Yes Status: Chronic 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 insulin use: with prison use Diabetes mellitus complication status: with kidney complications Diabetes mellitus complication detail: with chronic kidney disease Chronic kidney disease stage: stage 4 (severe) Qualified Code(s): E11.22 - Type 2 diabetes mellitus with diabetic chronic kidney disease; N18.4 - Chronic kidney disease, stage 4 (severe); N18.4 - Chronic kidney disease, stage 4 (severe); N18.4 - Chronic kidney disease, stage 4 (severe); N18.4 - Chronic kidney disease, stage 4 (severe); Z79.4 - MCFP (current) use of insulin; Z79.4 - [facility] (current) use of insulin; 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; 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 (5) DVT prophylaxis Current Visit: Yes Status: Acute (6) Pulmonary embolism Current Visit: Yes Status: Acute Qualifiers: Pulmonary embolism type: other Chronicity: acute Acute cor pulmonale presence: without acute cor pulmonale Qualified Code(s): I26.99 - Other pulmonary embolism without acute cor pulmonale - Time Spent With Patient Total time spent is greater than 50% in coordination of care (as documented) at patient's floor/unit and/or counseling patient: - Constitutional Vitals: Temp Pulse Resp BP Pulse Ox 98.1 F 62 16 120/68 96 01/19/18 11:32 01/19/18 07:26 01/19/18 11:32 01/19/18 11:32 01/19/18 11:32 Internal Medicine: Result - Labs CBC & Chem 7: 01/19/18 06:08 01/19/18 06:08 Labs: Short CBC 01/19/18 Range/Units 06:08 WBC 8.3 (4.3-11.1) K/mcL Hgb 14.5 (12.9-16.9) g/dL Hct 43.7 (37.5-50.1) % Plt Count 192 (140-400) K/mcL Neutrophils # 4.7 (1.6-8.9) K/mcL BMP 01/19/18 06:08 Sodium 139 Potassium 4.2 Chloride 103 Carbon Dioxide 23 BUN 31 H Creatinine 2.11 H Glucose 227 H Calcium 8.9 - ABG Interpretation ABG results: ABG ABG pH 7.42 pH Units (7.32-7.45) 01/17/18 20:40 ABG pCO2 39 mmHg (35-45) 01/17/18 20:40 ABG pO2 70 mmHg (85-104) L 01/17/18 20:40 ABG O2 Saturation 94 % (95-98) L 01/17/18 20:40 PT/INR, D-dimer PT 12.0 Seconds (9.4-12.1) 01/19/18 07:14 D-Dimer 1566 ng/mLFEU (0-500) H 01/17/18 20:09 - Impressions Impressions Echocardiogram 01/17/18 19:47 Impressions: LVEF 55-60%. Normal LV chamber size and function. Mild concentric left ventricular hypertrophy. Mild left ventricular diastolic dysfunction. Normal right ventricular structure and function. No evidence of pulmonary hypertension. No significant valvular dysfunction. Left Ventricular Wall Motion: Rest Echo Findings All wall segments showed normal motion. Findings: Study Quality * Technically adequate exam. ECG Findings * Normal sinus rhythm. Left Ventricle * LVEF 55-60%. * Normal LV chamber size and function. * Mild concentric left ventricular hypertrophy. * Mild left ventricular diastolic dysfunction. Right Ventricle * Normal right ventricular structure and function. Left Atrium * Mildly dilated left atrium. Right Atrium * Mildly dilated right atrium. Aortic Valve * Aortic valve not well visualized. * No aortic regurgitation. * No aortic stenosis. Mitral Valve * Normal mitral valve structure and function. * No mitral regurgitation. * No mitral stenosis. Tricuspid Valve * Normal tricuspid valve structure and function. * Trace tricuspid regurgitation. * No evidence of pulmonary hypertension. Pulmonic Valve * Pulmonic valve is not well visualized. * No pulmonic regurgitation. Aorta * Normally sized aortic root. Pericardium * There is a trivial pericardial effusion present. IVC * Normal IVC dimensions and inspiratory collapse. Pulmonary Artery * Normal visualized portions of the main pulmonary artery. - Attending Attestation I examined this patient 01/19, and my medical decision-making was reviewed with the Resident Physician. I agree with the documented findings, disposition and treatment plan as described except to the extent set forth below. 87-year-old male admitted and being managed for acute hypoxic respiratory failure secondary to acute unprovoked urinary embolism, as well as left lower extremity DVT, SVT. Has a history of prior DVT with an IVC filter placed, A. fib, issue with Coumadin compliance in the past. History of GI bleed in the past Family concerned about weakness-PTOT eval noted-for short term rehwb/swing bed. No new complains today Physical exam with no acute findings Labs and Imaging reviewed Plan is to continue heparin drip with warfarin, continue fingerstick monitoring and insulin, avoid nephrotoxins monitor renal function. Patient and the family at the bedside extensively educated on risk of bleeding, however wishes to proceed with anticoagulation. Rest of details as in the resident physician's documentation
--- NOTE | 2018-01-19 16:43 | Electrocardiograph Report ---
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: KULDIP : 1930 Requested By: Hakeem Lomax Order Number: [id number] Reading MD: Sandi Lee Measurements Intervals [place] Rate: 60 P: 47 [place]: 239 QRS: 31 QRSD: 109 T: 84 QT: 435 QTc: 437 Interpretive Statements SINUS RHYTHM WITH FIRST DEGREE AV BLOCK LOW QRS VOLTAGE IN PRECORDIAL LEADS [QRS DEFLECTION < 1.0 mV IN CHEST LEADS] INCOMPLETE RIGHT BUNDLE BRANCH BLOCK [90+ ms QRS DURATION, TERMINAL R IN V1/V2, 40+ ms S IN I/aVL/V4/V5/V6] POSSIBLE ANTERIOR MYOCARDIAL INFARCTION [30 ms Q WAVE IN V3/V4, OR R < 0.2 mV IN V4], PROBABLY OLD Electronically Signed On 01-19-2018 16:42:07 EDT by Sandi Lee
[2018-01-19] MEDS ORDERED: *HR* Warfarin 2.5 MG TABLET PO SCH (18:00)
[2018-01-19] MEDS ORDERED: *HR* Warfarin 3 MG TABLET PO SCH (18:00)
[2018-01-19] MEDS: Famotidine 20 MG TABLET PO SCH (21:44)
[2018-01-20] MEDS: Ipratropium/Albuterol Neb 3 ML IH SCH ×4 (03:36→22:16)
[2018-01-20 06:52] LABS: INR 1.1
[2018-01-20] MEDS: Heparin 25,000 UNIT/500 ML D5W 25,000 UNIT/500 ML BAG IVC SCH ×2 (07:38→12:20)
[2018-01-20] MEDS: Aspirin 81 MG TAB.CHEW PO SCH (08:23)
[2018-01-20] MEDS: Cholecalciferol (D-3) 1,000 UNIT TABLET PO SCH (08:23)
[2018-01-20] MEDS: Sennosides/Docusate Sodium TABLET PO SCH (08:24)
[2018-01-20] MEDS: Isosorbide MONOnitrate (24 HR) 30 MG TAB.ER.24H PO SCH (08:25)
[2018-01-20] MEDS: Insulin LISPRO 300 UNITS/3 ML VIAL SQ SCH ×4 (08:25→21:14)
[2018-01-20] MEDS: Furosemide 40 MG/4 ML VIAL IVP SCH (08:25)
--- NOTE | 2018-01-20 09:28 | Internal Med Progress Note ---
<Roni Woods - Last Filed: 01/20/18 09:33> Date of Encounter: 01/20/18 Time of Encounter: 09:33 - Assessment and plan (1) Acute respiratory failure with hypoxia Current Visit: Yes Status: Acute Assessment and plan: Secondary to pulmonary embolism with findings of acute left lower extremity DVT in the gastrocnemius and SVT in the great saphenous vein. sob improved. continues to require supplemental O2. plan to d/c to [facility]. Plan: We will continue duo nebs, supplemental oxygen. Patient is being bridged onto warfarin. (2) CKD (chronic kidney disease) stage 4, GFR 15-29 ml/min Current Visit: Yes Status: Chronic Assessment and plan: Stable continue monitor. (3) Diabetes mellitus Current Visit: Yes Status: Chronic Assessment and plan: Stable. Continue insulin regimen. 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 insulin use: with skilled nursing use Diabetes mellitus complication status: with kidney complications Diabetes mellitus complication detail: with chronic kidney disease Chronic kidney disease stage: stage 4 (severe) Qualified Code(s): E11.22 - Type 2 diabetes mellitus with diabetic chronic kidney disease; N18.4 - Chronic kidney disease, stage 4 (severe); N18.4 - Chronic kidney disease, stage 4 (severe); N18.4 - Chronic kidney disease, stage 4 (severe); N18.4 - Chronic kidney disease, stage 4 (severe); Z79.4 - halfway (current) use of insulin; Z79.4 - halfway (current) use of insulin; 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 (5) Physical deconditioning Current Visit: Yes Status: Acute Assessment and plan: Physical therapy evaluated patient reported that he will benefit from skilled rehabilitation. Plan to discharge to [facility]. (6) Pulmonary embolism Current Visit: Yes Status: Acute Assessment and plan: V/Q showed intermediate probability of PE. Lower extremity Dopplers confirmed DVT in the left lower extremity. Echocardiogram shows LVEF of 55-60% without right heart strain. With mild left ventricular diastolic dysfunction. INR 1.1 Qualifiers: Pulmonary embolism type: other Chronicity: acute Acute cor pulmonale presence: without acute cor pulmonale Qualified Code(s): I26.99 - Other pulmonary embolism without acute cor pulmonale - Time Spent With Patient Total time spent is greater than 50% in coordination of care (as documented) at patient's floor/unit and/or counseling patient: - Subjective Interval history: No acute overnight events. Patient is being bridged onto warfarin before discharge. He denies headache, chest pain, abdominal pain, lower extremity pain. He is tolerating his diet. - Constitutional Vitals: Temp Pulse Resp BP Pulse Ox 98.0 F 72 18 133/74 95 01/20/18 06:55 01/20/18 06:55 01/20/18 06:55 01/20/18 06:55 01/20/18 06:55 General appearance: Present: A&O X 3, pleasant, no acute distress, answers questions appropriately - Other Additional findings: General: Pleasant without distress Heart: Regular rate and rhythm with no murmur Lungs: Clear to auscultation bilaterally Abdomen: Soft nontender, nondistended positive bowel sounds Skin: warm and dry, absent rash Extremities: Absent pedal edema, Neuro: Alert oriented 3 Vascular: Pedal and radial pulses 2 out of 4 Internal Medicine: Result - Labs CBC & Chem 7: 01/19/18 06:08 01/19/18 06:08 - ABG Interpretation ABG results: ABG ABG pH 7.42 pH Units (7.32-7.45) 01/17/18 20:40 ABG pCO2 39 mmHg (35-45) 01/17/18 20:40 ABG pO2 70 mmHg (85-104) L 01/17/18 20:40 ABG O2 Saturation 94 % (95-98) L 01/17/18 20:40 PT/INR, D-dimer PT 12.0 Seconds (9.4-12.1) 01/20/18 06:10 D-Dimer 1566 ng/mLFEU (0-500) H 01/17/18 20:09 Consult Discharge Plan - Plan Referrals: Lio Gold BEHAVIOR CLINICIAN [Primary Care Provider] - <Kaleb Rodriguez - Last Filed: 01/20/18 12:58> Date of Encounter: 01/20/18 - Assessment and plan (1) Acute respiratory failure with hypoxia Current Visit: Yes Status: Acute (2) Physical deconditioning Current Visit: Yes Status: Acute (3) CKD (chronic kidney disease) stage 4, GFR 15-29 ml/min Current Visit: Yes Status: Chronic (4) Diabetes mellitus Current Visit: Yes Status: Chronic 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 insulin use: with skilled nursing use Diabetes mellitus complication status: with kidney complications Diabetes mellitus complication detail: with chronic kidney disease Chronic kidney disease stage: stage 4 (severe) Qualified Code(s): E11.22 - Type 2 diabetes mellitus with diabetic chronic kidney disease; N18.4 - Chronic kidney disease, stage 4 (severe); N18.4 - Chronic kidney disease, stage 4 (severe); N18.4 - Chronic kidney disease, stage 4 (severe); N18.4 - Chronic kidney disease, stage 4 (severe); 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; Z79.4 - halfway (current) use of insulin; 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; Z79.4 - halfway (current) use of insulin (5) DVT prophylaxis Current Visit: Yes Status: Acute (6) Pulmonary embolism Current Visit: Yes Status: Acute Qualifiers: Pulmonary embolism type: other Chronicity: acute Acute cor pulmonale presence: without acute cor pulmonale Qualified Code(s): I26.99 - Other pulmonary embolism without acute cor pulmonale - Time Spent With Patient Total time spent is greater than 50% in coordination of care (as documented) at patient's floor/unit and/or counseling patient: - Constitutional Vitals: Temp Pulse Resp BP Pulse Ox 97.7 F 76 20 112/66 95 01/20/18 11:14 01/20/18 11:14 01/20/18 11:14 01/20/18 11:14 01/20/18 11:14 Internal Medicine: Result - Labs CBC & Chem 7: 01/19/18 06:08 01/19/18 06:08 - ABG Interpretation ABG results: ABG ABG pH 7.42 pH Units (7.32-7.45) 01/17/18 20:40 ABG pCO2 39 mmHg (35-45) 01/17/18 20:40 ABG pO2 70 mmHg (85-104) L 01/17/18 20:40 ABG O2 Saturation 94 % (95-98) L 01/17/18 20:40 PT/INR, D-dimer PT 12.0 Seconds (9.4-12.1) 01/20/18 06:10 D-Dimer 1566 ng/mLFEU (0-500) H 01/17/18 20:09 - Attending Attestation I examined this patient 01/20, and my medical decision-making was reviewed with the Resident Physician. I agree with the documented findings, disposition and treatment plan as described except to the extent set forth below. 87-year-old male admitted and being managed for acute hypoxic respiratory failure secondary to acute unprovoked urinary embolism, as well as left lower extremity DVT, SVT. Has a history of prior DVT with an IVC filter placed, A. fib, issue with Coumadin compliance in the past. History of GI bleed in the past Patient is seen and examined at the bedside, resting comfortably, denies new complains, in no form of distress No new complains today Physical exam with no acute findings Labs and Imaging reviewed: INR remains 1.1 Plan is to continue heparin drip with warfarin, continue fingerstick monitoring and insulin, avoid nephrotoxins monitor renal function. Patient and the family at the bedside aware risk of bleeding, however wishes to proceed with anticoagulation. Rest of details as in the resident physician's documentation
[2018-01-20] MEDS ORDERED: *HR* Warfarin 5 MG TABLET PO ONE (18:00)
[2018-01-20] MEDS: Famotidine 20 MG TABLET PO SCH (21:11)
[2018-01-21] MEDS: Ipratropium/Albuterol Neb 3 ML IH SCH ×4 (04:27→22:18)
[2018-01-21 04:33] LABS: INR 1.1
--- NOTE | 2018-01-21 05:23 | Electrocardiograph Report ---
[address] [place] [address] Test Date: 2018-01-19 Pat Name: Sierra Isaiah Department: 111 Room: 2NE28 Gender: M Supervisor [employer]: : 1930 Requested By: Kaleb Rodriguez Order Number: [id number] Reading MD: Nabil Dhillon Measurements Intervals [place] Rate: 69 P: 50 [place]: 229 QRS: 63 QRSD: 112 T: 81 QT: 435 QTc: 454 Interpretive Statements SINUS RHYTHM WITH FIRST DEGREE AV BLOCK INCOMPLETE RIGHT BUNDLE BRANCH BLOCK POSSIBLE ANTERIOR MYOCARDIAL INFARCTION, OF INDETERMINATE AGE POSSIBLE INFERIOR MYOCARDIAL INFARCTION, PROBABLY OLD Electronically Signed On 01-21-2018 5:22:11 EDT by Nabil Dhillon
--- NOTE | 2018-01-21 08:05 | Internal Med Progress Note ---
<David Haynes - Last Filed: 01/21/18 13:53> Date of Encounter: 01/21/18 Time of Encounter: 08:05 - Assessment and plan (1) Acute respiratory failure with hypoxia Current Visit: Yes Status: Acute Assessment and plan: Secondary to PE with left lower extremity DVT. Shortness of breath improved, but continues to need supplemental O2 with exertion. Wheezing slightly this morning, will give breathing treatment Continue with warfarin bridging. (2) Physical deconditioning Current Visit: Yes Status: Acute Assessment and plan: PT/OT evaluated, plan for discharge to [facility]. (3) CKD (chronic kidney disease) stage 4, GFR 15-29 ml/min Current Visit: Yes Status: Chronic Assessment and plan: Last labs 01/19/18 with stable renal function. (4) Diabetes mellitus Current Visit: Yes Status: Chronic Assessment and plan: Continue with insulin sliding scale. 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 (6) Pulmonary embolism Current Visit: Yes Status: Acute Assessment and plan: V/Q with intermediate probability of PE, unable to get CTA due to history of CKD stage 4. Lower extremity ultrasound confirmed DVT in the left lower extremity. Echocardiogram shows LVEF of 55-60% without right heart strain. With mild left ventricular diastolic dysfunction. INR still 1.1 from 1.1 yesterday despite continued warfarin, will likely need increased dosing, discussed with pharmacist. Continue with supplemental oxygen as needed. Continue with warfarin, recheck labs. Qualifiers: Pulmonary embolism type: other Chronicity: acute Acute cor pulmonale presence: without acute cor pulmonale Qualified Code(s): I26.99 - Other pulmonary embolism without acute cor pulmonale - Time Spent With Patient Total time spent is greater than 50% in coordination of care (as documented) at patient's floor/unit and/or counseling patient: - Subjective Interval history: Patient is AxO to person place and situation, not time. Patient reports doing well. Still having shortness of breath with exertion and still using oxygen. no new complaints. Denies fevers, chills, sweats, nausea, vomiting, chest pain , abdominal pain, changes in bowels or bladder. INR 1.1 from 1.1 yesterday. - Constitutional Vitals: Temp Pulse Resp BP Pulse Ox 97.9 F 81 24 155/80 93 01/21/18 06:41 01/21/18 06:41 01/21/18 06:41 01/21/18 06:41 01/21/18 06:41 General appearance: Present: A&O X 3, pleasant, no acute distress, answers questions appropriately - Head Head exam: Present: atraumatic, normal inspection, normocephalic - Eye Eye exam: Present: EOMI, normal appearance - ENT ENT exam: Present: mucous membranes moist, normal exam - Neck Neck exam general surgery: Present: full ROM, normal inspection, supple, trachea midline - Respiratory Respiratory exam: Present: wheezes. Absent: rales, respiratory distress, rhonchi Additional comments: on 2L nasal cannula - Cardiovascular Cardiovascular exam: Present: RRR, +S1, +S2 - GI/Abdominal GI/Abdominal exam: Present: normal bowel sounds, soft. Absent: tenderness - Extremities Exam Extremities exam: Present: full ROM, pedal edema (left lower extremity edema 1+) , warm, radial pulses palpable and symmetrical. Absent: tenderness Internal Medicine: Result - Labs CBC & Chem 7: 01/19/18 06:08 01/19/18 06:08 - ABG Interpretation ABG results: ABG ABG pH 7.42 pH Units (7.32-7.45) 01/17/18 20:40 ABG pCO2 39 mmHg (35-45) 01/17/18 20:40 ABG pO2 70 mmHg (85-104) L 01/17/18 20:40 ABG O2 Saturation 94 % (95-98) L 01/17/18 20:40 PT/INR, D-dimer PT 12.0 Seconds (9.4-12.1) 01/21/18 04:11 D-Dimer 1566 ng/mLFEU (0-500) H 01/17/18 20:09 Consult Discharge Plan - Plan Referrals: Lio Gold CNP [Primary Care Provider] - <Kaleb Rodriguez - Last Filed: 01/21/18 16:49> Date of Encounter: 01/21/18 - Assessment and plan (1) Acute respiratory failure with hypoxia Current Visit: Yes Status: Acute (2) Physical deconditioning Current Visit: Yes Status: Acute (3) CKD (chronic kidney disease) stage 4, GFR 15-29 ml/min Current Visit: Yes Status: Chronic (4) Diabetes mellitus Current Visit: Yes Status: Chronic Qualifiers: Diabetes mellitus type: type 2 Diabetes mellitus prison insulin use: with early childhood aide classroom use Diabetes mellitus complication status: with kidney complications Diabetes mellitus complication detail: with chronic kidney disease Chronic kidney disease stage: stage 4 (severe) Qualified Code(s): E11.22 - Type 2 diabetes mellitus with diabetic chronic kidney disease; N18.4 - Chronic kidney disease, stage 4 (severe); Z79.4 - air pumper (current) use of insulin (5) DVT prophylaxis Current Visit: Yes Status: Acute (6) Pulmonary embolism Current Visit: Yes Status: Acute Qualifiers: Pulmonary embolism type: other Chronicity: acute Acute cor pulmonale presence: without acute cor pulmonale Qualified Code(s): I26.99 - Other pulmonary embolism without acute cor pulmonale - Time Spent With Patient Total time spent is greater than 50% in coordination of care (as documented) at patient's floor/unit and/or counseling patient: - Constitutional Vitals: Temp Pulse Resp BP Pulse Ox 98.1 F 92 16 152/84 92 01/21/18 11:00 01/21/18 11:00 01/21/18 15:24 01/21/18 11:00 01/21/18 15:24 Internal Medicine: Result - Labs CBC & Chem 7: 01/19/18 06:08 01/19/18 06:08 Labs: Cardiac Enzymes 01/21/18 Range/Units 11:30 Troponin I < 0.03 (< 0.04) ng/mL - ABG Interpretation ABG results: ABG ABG pH 7.42 pH Units (7.32-7.45) 01/17/18 20:40 ABG pCO2 39 mmHg (35-45) 01/17/18 20:40 ABG pO2 70 mmHg (85-104) L 01/17/18 20:40 ABG O2 Saturation 94 % (95-98) L 01/17/18 20:40 PT/INR, D-dimer PT 12.0 Seconds (9.4-12.1) 01/21/18 04:11 D-Dimer 1566 ng/mLFEU (0-500) H 01/17/18 20:09 - Impressions Impressions Chest X-Ray 01/21/18 11:27 IMPRESSION: Persistent bibasilar atelectasis with small left pleural effusion. D/ / 01/21/2018 12:25:51 Luz Lugo MD / [facility] Interpreting Provider: Luz Lugo MD - Attending Attestation I examined this patient and my medical decision-making was reviewed with the Resident Physician on 01/21/18. I agree with the documented findings, disposition and treatment plan as described except to the extent set forth below.
[2018-01-21] MEDS: Heparin 25,000 UNIT/500 ML D5W 25,000 UNIT/500 ML BAG IVC SCH (08:45)
[2018-01-21] MEDS: Aspirin 81 MG TAB.CHEW PO SCH (08:49)
[2018-01-21] MEDS: Sennosides/Docusate Sodium TABLET PO SCH (08:49)
[2018-01-21] MEDS: Furosemide 40 MG TABLET PO SCH (08:49)
[2018-01-21] MEDS: Cholecalciferol (D-3) 1,000 UNIT TABLET PO SCH (08:50)
[2018-01-21] MEDS: Insulin LISPRO 300 UNITS/3 ML VIAL SQ SCH ×4 (08:51→21:00)
[2018-01-21] MEDS: Isosorbide MONOnitrate (24 HR) 30 MG TAB.ER.24H PO SCH (09:00)
[2018-01-21] MEDS ORDERED: Ondansetron 4 MG/2 ML VIAL IVP ONE (11:28)
[2018-01-21] MEDS ORDERED: Ondansetron 4 MG/2 ML VIAL ONE ×2 (11:31→18:46)
--- NOTE | 2018-01-21 15:01 | Electrocardiograph Report ---
[address] [place] [address] Test Date: 2018-01-21 Pat Name: Sierra Isaiah Department: 111 Room: 2NE28 Gender: M Director Adult: JOSE : 1930 Requested By: Radha Tomlin Order Number: [id number] Reading MD: Sandi Lee Measurements Intervals [place] Rate: 89 P: 23 TN: 213 QRS: -1 QRSD: 114 T: 29 QT: 393 QTc: 440 Interpretive Statements SINUS RHYTHM WITH FIRST DEGREE AV BLOCK LOW QRS VOLTAGE IN PRECORDIAL LEADS INCOMPLETE RIGHT BUNDLE BRANCH BLOCK INFERIOR MYOCARDIAL INFARCTION, PROBABLY OLD Electronically Signed On 01-21-2018 14:59:45 EDT by Sandi Lee
[2018-01-21] MEDS ORDERED: *HR* Warfarin 5 MG TABLET PO ONE (18:00)
[2018-01-21] MEDS: Famotidine 20 MG TABLET PO SCH (20:58)
[2018-01-21] MEDS: Insulin DETEMIR 100 UNIT/ML X5UNITS SQ SCH (21:02)
[2018-01-22] MEDS: Heparin 25,000 UNIT/500 ML D5W 25,000 UNIT/500 ML BAG IVC SCH ×2 (03:22→22:54)
[2018-01-22] MEDS: Ondansetron 4 MG/2 ML VIAL IVP PRN ×3 (03:22→23:00)
[2018-01-22] MEDS: Ipratropium/Albuterol Neb 3 ML IH SCH ×4 (03:44→22:01)
[2018-01-22 05:52] LABS: Basophils # 0.1 K/mcL (0.0-0.2); Basophils % 0.7 %; Eosinophils # 0.4 K/mcL (0.0-0.6); Eosinophils % 3.3 %; Hematocrit 46.4 % (37.5-50.1); Hemoglobin 15.5 g/dL (12.9-16.9); Immature Granulocytes % 0.8 % (0-4); Lymphocytes # 1.2 K/mcL (0.6-4.6); Mean Corpuscular HGB Conc 33.4 g/dL (31.6-35.5); Mean Corpuscular Hemoglobin 30.2 pg (28.0-33.3); Mean Corpuscular Volume 90.4 fL (83.0-100.0); Monocytes # 0.9 K/mcL (0.0-1.3); Monocytes % 7.4 %; Neutrophils # 9.1 K/mcL (1.6-8.9); Platelet Count 195 K/mcL (140-400); Red Blood Count 5.13 M/mcL (4.19-5.50); Red Cell Distribution Width 15.9 % (11.5-14.5); Segmented Neutrophils % 77.8 %
[2018-01-22 05:56] LABS: INR 1.3; Prothrombin Time 13.6 Seconds (9.4-12.1)
[2018-01-22 06:09] LABS: Calcium 9.4 mg/dL (8.6-10.3); Potassium 4.6 mEq/L (3.5-5.1)
[2018-01-22] MEDS: Aspirin 81 MG TAB.CHEW PO SCH (08:52)
[2018-01-22] MEDS: Furosemide 40 MG TABLET PO SCH (08:52)
[2018-01-22] MEDS: Isosorbide MONOnitrate (24 HR) 30 MG TAB.ER.24H PO SCH (08:52)
[2018-01-22] MEDS: Cholecalciferol (D-3) 1,000 UNIT TABLET PO SCH (08:52)
[2018-01-22] MEDS: Insulin LISPRO 300 UNITS/3 ML VIAL SQ SCH ×3 (08:53→17:55)
--- NOTE | 2018-01-22 09:35 | Internal Med Progress Note ---
<David Haynes - Last Filed: 01/22/18 14:01> Date of Encounter: 01/22/18 Time of Encounter: 09:33 - Assessment and plan (1) Pulmonary embolism Current Visit: Yes Status: Acute Assessment and plan: V/Q with intermediate probability of PE, unable to get CTA due to history of CKD stage 4. Lower extremity ultrasound confirmed DVT in the left lower extremity. Echocardiogram shows LVEF of 55-60% without right heart strain. With mild left ventricular diastolic dysfunction. INR now 1.3 from 1.1 yesterday. Continue with warfarin per pharmacy dosing to goal of 2-3. HOLD Warfarin and continue heparin drip as patient has SBO. Continue with supplemental oxygen as needed. Continue with warfarin, recheck labs. Qualifiers: Pulmonary embolism type: other Chronicity: acute Acute cor pulmonale presence: without acute cor pulmonale Qualified Code(s): I26.99 - Other pulmonary embolism without acute cor pulmonale (2) Nausea and vomiting Current Visit: Yes Status: Acute Assessment and plan: Nausea and vomiting of unknown etiology. Decreased po intake due to. Abdominal exam normal. Continue antiemetic. KUB ordered, completed. Mild dilation of small bowel measuring 4cm and relative decompression of colon suggesting smoall bowel obstruction NPO Qualifiers: Vomiting type: unspecified Vomiting Intractability: non-intractable Qualified Code(s): R11.2 - Nausea with vomiting, unspecified (3) Acute respiratory failure with hypoxia Current Visit: Yes Status: Acute Assessment and plan: Secondary to PE with left lower extremity DVT. Shortness of breath improved, but continues to need supplemental O2 with exertion. Continue with warfarin bridging. (4) Physical deconditioning Current Visit: Yes Status: Acute Assessment and plan: PT/OT evaluated, plan for discharge to [facility]. (5) CKD (chronic kidney disease) stage 4, GFR 15-29 ml/min Current Visit: Yes Status: Chronic Assessment and plan: Labs with Cr 2.50 increased. Hold lasix today. (6) Diabetes mellitus Current Visit: Yes Status: Chronic Assessment and plan: Continue with insulin sliding scale. 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 (9) Small bowel obstruction Current Visit: Yes Status: Acute Assessment and plan: Patient has had n/v since yesterday afternoon and hasn't tolerated po. KUB revealed small bowel obstruction Consult Surgery, Dr. Urbano NPO ng tube to wall suction. Hold oral meds. - Time Spent With Patient Total time spent is greater than 50% in coordination of care (as documented) at patient's floor/unit and/or counseling patient: - Subjective Interval history: Patient is AxO to person place and situation, not time. Patient reports not feeling well, nausea and vomiting and hasn't been eating due to this. Reports some shortness of breath and still using oxygen. Denies fevers, chills, sweats , chest pain, abdominal pain, changes in bowels or bladder, new weakness. INR 1.3 from 1.1 yesterday. - Constitutional Vitals: Temp Pulse Resp BP Pulse Ox 97.9 F 81 20 156/85 95 01/22/18 07:19 01/22/18 07:19 01/22/18 07:44 01/22/18 07:19 01/22/18 07:44 General appearance: Present: A&O X 3, pleasant, no acute distress, answers questions appropriately - Head Head exam: Present: atraumatic, normal inspection, normocephalic - Eye Eye exam: Present: EOMI, normal appearance Additional comments: resolving subconjunctival hemorrhage left eye - ENT ENT exam: Present: mucous membranes dry, normal exam - Neck Neck exam general surgery: Present: full ROM, normal inspection, supple, trachea midline. Absent: lymphadenopathy - Respiratory Respiratory exam: Present: CTAB. Absent: rales, respiratory distress, rhonchi, wheezes - Cardiovascular Cardiovascular exam: Present: RRR, +S1, +S2 - GI/Abdominal GI/Abdominal exam: Present: normal bowel sounds, soft. Absent: hernia, pulsatile mass, rebound, tenderness - Extremities Exam Extremities exam: Present: full ROM, pedal edema (minimal nonpitting left lower extremity edema), warm, radial pulses palpable and symmetrical. Absent: tenderness - Skin Skin exam: Present: dry, intact, normal color, warm Internal Medicine: Result - Labs CBC & Chem 7: 01/22/18 05:36 01/22/18 05:36 Labs: Short CBC 01/22/18 Range/Units 05:36 WBC 11.7 H (4.3-11.1) K/mcL Hgb 15.5 (12.9-16.9) g/dL Hct 46.4 (37.5-50.1) % Plt Count 195 (140-400) K/mcL Neutrophils # 9.1 H (1.6-8.9) K/mcL BMP 01/22/18 05:36 Sodium 135 L Potassium 4.6 Chloride 98 Carbon Dioxide 26 BUN 42 H Creatinine 2.50 H Glucose 340 H Calcium 9.4 Cardiac Enzymes 01/21/18 Range/Units 11:30 Troponin I < 0.03 (< 0.04) ng/mL - ABG Interpretation ABG results: ABG ABG pH 7.42 pH Units (7.32-7.45) 01/17/18 20:40 ABG pCO2 39 mmHg (35-45) 01/17/18 20:40 ABG pO2 70 mmHg (85-104) L 01/17/18 20:40 ABG O2 Saturation 94 % (95-98) L 01/17/18 20:40 PT/INR, D-dimer PT 13.6 Seconds (9.4-12.1) H 01/22/18 05:36 D-Dimer 1566 ng/mLFEU (0-500) H 01/17/18 20:09 - Impressions Impressions Chest X-Ray 01/21/18 11:27 IMPRESSION: Persistent bibasilar atelectasis with small left pleural effusion. D/ / 01/21/2018 12:25:51 Luz Lugo MD / [facility] Interpreting Provider: Luz Lugo MD Consult Discharge Plan - Plan Referrals: Lio Gold CNP [Primary Care Provider] - <Kaleb Rodriguez - Last Filed: 01/22/18 14:57> Date of Encounter: 01/22/18 - Assessment and plan (1) Chronic diastolic CHF (congestive heart failure) Current Visit: Yes Status: Chronic (2) Acute respiratory failure with hypoxia Current Visit: Yes Status: Acute (3) Physical deconditioning Current Visit: Yes Status: Acute (4) CKD (chronic kidney disease) stage 4, GFR 15-29 ml/min Current Visit: Yes Status: Chronic (5) Diabetes mellitus Current Visit: Yes Status: Chronic Qualifiers: Diabetes mellitus type: type 2 Diabetes mellitus golf ball molder insulin use: with residential use Diabetes mellitus complication status: with kidney complications Diabetes mellitus complication detail: with chronic kidney disease Chronic kidney disease stage: stage 4 (severe) Qualified Code(s): E11.22 - Type 2 diabetes mellitus with diabetic chronic kidney disease; N18.4 - Chronic kidney disease, stage 4 (severe); Z79.4 - fitness worker (current) use of insulin (6) DVT prophylaxis Current Visit: Yes Status: Acute (7) Pulmonary embolism Current Visit: Yes Status: Acute Qualifiers: Pulmonary embolism type: other Chronicity: acute Acute cor pulmonale presence: without acute cor pulmonale Qualified Code(s): I26.99 - Other pulmonary embolism without acute cor pulmonale (8) Nausea and vomiting Current Visit: Yes Status: Acute Qualifiers: Vomiting type: unspecified Vomiting Intractability: non-intractable Qualified Code(s): R11.2 - Nausea with vomiting, unspecified (9) Small bowel obstruction Current Visit: Yes Status: Acute - Time Spent With Patient Total time spent is greater than 50% in coordination of care (as documented) at patient's floor/unit and/or counseling patient: - Constitutional Vitals: Temp Pulse Resp BP Pulse Ox 97.5 F L 80 20 132/73 94 01/22/18 11:26 01/22/18 11:26 01/22/18 11:26 01/22/18 11:26 01/22/18 11:26 Internal Medicine: Result - Labs CBC & Chem 7: 01/22/18 05:36 01/22/18 05:36 Labs: Short CBC 01/22/18 Range/Units 05:36 WBC 11.7 H (4.3-11.1) K/mcL Hgb 15.5 (12.9-16.9) g/dL Hct 46.4 (37.5-50.1) % Plt Count 195 (140-400) K/mcL Neutrophils # 9.1 H (1.6-8.9) K/mcL BMP 01/22/18 05:36 Sodium 135 L Potassium 4.6 Chloride 98 Carbon Dioxide 26 BUN 42 H Creatinine 2.50 H Glucose 340 H Calcium 9.4 - ABG Interpretation ABG results: ABG ABG pH 7.42 pH Units (7.32-7.45) 01/17/18 20:40 ABG pCO2 39 mmHg (35-45) 01/17/18 20:40 ABG pO2 70 mmHg (85-104) L 01/17/18 20:40 ABG O2 Saturation 94 % (95-98) L 01/17/18 20:40 PT/INR, D-dimer PT 13.6 Seconds (9.4-12.1) H 01/22/18 05:36 D-Dimer 1566 ng/mLFEU (0-500) H 01/17/18 20:09 - Impressions Impressions KUB X-Ray 01/22/18 10:14 IMPRESSION: Mild dilatation of small bowel, measuring up to 4 cm, and relative decompression of the colon suggest small bowel obstruction. The findings were sent to the Radiology Results Communication [facility] at 12:47 pm on 01/22/2018to be communicated to a licensed caregiver. D/ / 01/22/2018 13:12:40 Yohana Lugo MD / [facility] Interpreting Provider: Yohana Lugo MD - Attending Attestation I examined this patient and my medical decision-making was reviewed with the Resident Physician on 01/22/18. I agree with the documented findings, disposition and treatment plan as described except to the extent set forth below. 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 He had 3 episodes of NBNB emesis in the past 24 hrs, ACS ruled out, KATIE done today with SBO. Abdomen is soft and patient is not in distress, no symptoms/signs of sepsis. INR is 1.3, CBC with stable HB and WBC/PLT, eletrolytes are acceptable. Agree with NPO, continue heparin, hold COumadin, Surgery eval. Hold off NG tube for now till surgery eval. Continue O2. PTT is therapeutic, rest of details as in the resident physician's documentation
[2018-01-22] MEDS: Sennosides/Docusate Sodium TABLET PO SCH (11:59)
[2018-01-22] MEDS ORDERED: *HR* Metoprolol 5 MG/5 ML VIAL IVP PRN (13:54)
[2018-01-22] MEDS: Pantoprazole 40 MG VIAL IVP SCH (15:08)
--- NOTE | 2018-01-22 17:24 | General Surgery Consult Note ---
Date of Encounter: 01/22/18 Time of Encounter: 17:00 Assessment and Plan (1) Ileus Current Visit: No Status: Acute NPO Passing flatus and has had 2 bowel movements today Insert NG tube if patient develops nausea/vomiting IV fluids Supportive care Serial abdominal exams Serial x-rays Consider SBFT in the next 24-48 hours No surgical intervention indicated at this time Surgery will continue to follow and assess progress (2) Pulmonary embolism Current Visit: Yes Status: Acute Currently on heparin gtt Management per hospitalist Qualifiers: Pulmonary embolism type: other Chronicity: acute Acute cor pulmonale presence: without acute cor pulmonale Qualified Code(s): I26.99 - Other pulmonary embolism without acute cor pulmonale (3) CKD (chronic kidney disease) stage 3, GFR 30-59 ml/min Current Visit: No Status: Chronic Management per hospitalist (4) Diabetes mellitus Current Visit: No Status: Chronic Management per hospitalist Qualifiers: Diabetes mellitus type: type 1 Diabetes mellitus complication status: with kidney complications Diabetes mellitus complication detail: with chronic kidney disease Chronic kidney disease stage: stage 3 (moderate) Qualified Code(s): E10.22 - Type 1 diabetes mellitus with diabetic chronic kidney disease ; N18.3 - Chronic kidney disease, stage 3 (moderate) (5) Coronary artery disease Current Visit: No Status: Chronic Management per hospitalist Qualifiers: Coronary Disease-Associated Artery/Lesion type: [place] artery [place] vs. transplanted heart: [place] heart Associated angina: without angina Qualified Code(s): I25.10 - Atherosclerotic heart disease of [place] coronary artery without angina pectoris (6) COPD (chronic obstructive pulmonary disease) Current Visit: No Status: Chronic Management per hospitalist Qualifiers: COPD type: chronic bronchitis Chronic bronchitis type: simple Qualified Code(s): J41.0 - Simple chronic bronchitis (7) Hyperlipidemia Current Visit: No Status: Chronic Management per hospitalist Qualifiers: Hyperlipidemia type: unspecified Qualified Code(s): E78.5 - Hyperlipidemia , unspecified (8) Physical deconditioning Current Visit: Yes Status: Chronic History of Present Illness Consult date: 01/22/18 Reason for consult: other (Ileus) Requesting physician: Kaleb Rodriguez History of present illness: Mr. Colon is a 87 year old male with multiple comorbidities who presented to the hospital with complaints of shortness of breath and left leg pain and swelling. He was found to have a pulmonary embolism as well as DVT of the left lower extremity. The patient was admitted to the hospital for further workup and treatment. We were contacted to see the patient due to complaints of abdominal discomfort and nausea and vomiting. The patient's son is present at the bedside and presents most of the history due to the patient being hard of hearing and being a poor historian. The patient's son states that his father has had "bowel trouble" for approximately the last 2-3 months. He states his father complains of intermittent lower abdominal discomfort. Denies any aggravating or alleviating factors. He also reports intermittent nausea and occasional vomiting. He also admits to dark stools. He states his father does take an iron supplement. He states that his father has had a colonoscopy in the last year and states that showed diverticulosis. He is unsure whether his father has ever had an EGD. He did have an x-ray complete today which shows dilated small bowel. We have been asked to see and evaluate the patient for recommendations. Past Med Surg Social Fam HX - Past Medical History Source: old records reviewed Medical history: cancer (skin), CHF, COPD, coronary artery disease, DVT, diabetes, hyperlipidemia, hypertension, kidney stones, myocardial infarction, pulmonary embolus, renal disease (CKD, stage 3), other (Gout, diverticulosis, Lung nodule) Psychiatric history: depression - Past Surgical History Surgical History: cholecystectomy, herniorrhaphy, IVC Filter, other (Ruptured disc, prostate surgery, skin cancer removal) - Social History Smoking Status: Never smoker Smokeless Tobacco Status: No Alcohol use: none Drug use: none - Family History Brother Hx Family Cardiac Disorders: Yes ([place]) Father Family Member Ethnicity: Non- Living Status: Hx Family Cardiac Disorders: No Hx Family Respiratory Disorders: No Hx Family Cancer: No Hx Family GI Disorders: No Hx Family Endocrine Disorder: No Hx Family Neuromuscular Disorders: No Hx Family Neurologic Disorders: No Hx Family HEENT Disorders: No Hx Family Autoimmune Disorders: No Medications and Allergies Allopurinol [Zyloprim] 100 mg PO DAILY 05/13/15 [History] Aspirin 81 mg PO DAILY 05/13/15 [History] Cholecalciferol (Vitamin D3) [Vitamin D3] 5,000 mg PO DAILY 05/13/15 [History] Losartan [Cozaar] 25 mg PO DAILY 05/13/15 [History] Pantoprazole [Protonix] 40 mg PO DAILY 05/13/15 [History] Sertraline HCl [Zoloft] 25 mg PO HS 05/13/15 [History] Simvastatin [Zocor] 20 mg PO HS 05/13/15 [History] Vitamin E 400 unit PO DAILY 05/13/15 [History] Nitroglycerin 0.4 mg SL Q5MIN PRN #10 tab.subl 05/14/15 [Rx] Levothyroxine [Synthroid] 50 mcg PO DAILY 11/29/15 [History] Ranitidine HCl [Zantac] 150 mg PO HS 12/12/15 [History] Isosorbide MONOnitrate (24 HR) [Imdur] 30 mg PO DAILY #30 tab.er.24h 04/29/16 [ Rx] Metoprolol Tartrate [Lopressor] 50 mg PO BID #60 tablet 04/29/16 [Rx] Albuterol Sulfate [Albuterol Inhaler] 2 puff IH Q4H PRN 30 Days inh 10/21/16 [ Rx] Ferrous Gluconate 324 mg PO DAILY 01/12/17 [History] Sennosides/Docusate Sodium [Senna Plus] 1 tab PO DAILY 01/12/17 [History] Furosemide [Lasix] 40 mg PO DAILY #30 tablet 03/08/17 [Rx] Polyethylene Glycol 3350 [MiraLAX] 17 gm PO DAILY #7 powd.pack 11/14/17 [Rx] Fluticasone/Vilanterol [Breo Ellipta 100-25 Mcg INH] 1 puff IH DAILY 01/17/18 [ History] Insulin ASPART [NovoLOG] 20 unit SQ TID 01/17/18 [History] Insulin Degludec [Tresiba Flextouch U-100] 50 unit SQ HS 01/17/18 [History] Linaclotide [Linzess] 290 mcg PO DAILY 01/17/18 [History] 3 Allergy/AdvReac Type Severity Reaction Status Date / Time morphine Allergy Rash Verified 01/12/17 20:47 Review of Systems All systems PM: reviewed and no additional remarkable complaints except as stated (in the HPI) All systems PM: The remainder of the systems were reviewed and are negative General Surgery Exam Initial Vital Signs Temp Pulse Resp BP Pulse Ox 97.9 F 60 20 103/62 94 05/06/18 13:17 01/17/18 13:17 01/17/18 13:17 01/17/18 13:17 01/17/18 13:17 - General physical appearance well developed, well nourished, moderate distress (shortness of breath), chronically ill, obese - Eyes PERRL, normal ocular movement - ENT normal mucosa, atraumatic, normocephalic - Neck trachea midline - Respiratory other (diminished bibasilar bases, poor respiratory effort) wheezing: bilateral - Cardiovascular Cardiovascular exam: Present: RRR - Abdomen Abdomen general surgery: Present: bowel sounds present (minimal, tympanic), soft , non tender, distended - Integumentary Integumentary general surgery: Present: warm and dry - Neurologic Present: CN 2-12 grossly intact - Musculoskeletal Present: other (severe deconditioning) - Psychiatric Psychiatric general surgery: Present: A&Ox3, other (Hard of hearing) Exam Initial Vital Signs Temp Pulse Resp BP Pulse Ox 97.9 F 60 20 103/62 94 01/17/18 13:17 01/17/18 13:17 01/17/18 13:17 01/17/18 13:17 01/17/18 13:17 Results - Labs 01/22/18 05:36 01/22/18 05:36 Abnormal lab results WBC 11.7 K/mcL (4.3-11.1) H 01/22/18 05:36 RDW 15.9 % (11.5-14.5) H 01/22/18 05:36 Neutrophils # 9.1 K/mcL (1.6-8.9) H 01/22/18 05:36 PT 13.6 Seconds (9.4-12.1) H 01/22/18 05:36 APTT 62.1 Seconds (26.0-36.0) H 01/22/18 13:19 D-Dimer 1566 ng/mLFEU (0-500) H 01/17/18 20:09 Heparin Anti-Xa, Unfract 0.85 IU/mL (0.30-0.70) H 01/18/18 06:35 ABG pO2 70 mmHg (85-104) L 01/17/18 20:40 ABG O2 Saturation 94 % (95-98) L 01/17/18 20:40 Sodium 135 mEq/L (136-145) L 01/22/18 05:36 BUN 42 mg/dL (8-23) H 01/22/18 05:36 Creatinine 2.50 mg/dL (0.70-1.30) H 01/22/18 05:36 Est GFR ( Amer) 30 (> 60) L 01/22/18 05:36 Est GFR (Non-Af Amer) 25 (> 60) L 01/22/18 05:36 Glucose 340 mg/dL (70-105) H 01/22/18 05:36 POC Glucose 222 mg/dL (70-99) H 01/22/18 11:28 Hemoglobin A1c 9.0 % (-5.6) H 01/17/18 20:09 Calculated Osmolality 304 (280-300) H 01/22/18 05:36 Uric Acid 9.8 mg/dL (2.3-7.6) H 01/17/18 20:09 Serum Total Protein 5.9 g/dL (6.4-8.9) L 01/18/18 01:22 Albumin 3.4 g/dL (3.5-5.7) L 01/18/18 01:22 HDL Cholesterol 28 mg/dL (40-59) L 01/18/18 01:22 Cholesterol/HDL Ratio 5.0 (0-4.9) H 01/18/18 01:22 Urine Bilirubin Small (Negative) H 01/17/18 14:11 Diabetes panel 01/22/18 Range/Units 05:36 Sodium 135 L (136-145) mEq/L Potassium 4.6 (3.5-5.1) mEq/L Chloride 98 (98-107) mEq/L Carbon Dioxide 26 (23-29) mEq/L BUN 42 H (8-23) mg/dL Creatinine 2.50 H (0.70-1.30) mg/dL Glucose 340 H (70-105) mg/dL Calcium 9.4 (8.6-10.3) mg/dL Calcium panel 01/22/18 Range/Units 05:36 Calcium 9.4 (8.6-10.3) mg/dL Pituitary panel 01/22/18 Range/Units 05:36 Sodium 135 L (136-145) mEq/L Potassium 4.6 (3.5-5.1) mEq/L Chloride 98 (98-107) mEq/L Carbon Dioxide 26 (23-29) mEq/L BUN 42 H (8-23) mg/dL Creatinine 2.50 H (0.70-1.30) mg/dL Glucose 340 H (70-105) mg/dL Calcium 9.4 (8.6-10.3) mg/dL Adrenal panel 01/22/18 Range/Units 05:36 Sodium 135 L (136-145) mEq/L Potassium 4.6 (3.5-5.1) mEq/L Chloride 98 (98-107) mEq/L Carbon Dioxide 26 (23-29) mEq/L BUN 42 H (8-23) mg/dL Creatinine 2.50 H (0.70-1.30) mg/dL Glucose 340 H (70-105) mg/dL Calcium 9.4 (8.6-10.3) mg/dL All other labs normal. - Imaging Additional studies: Head CT 01/17/18 15:01 IMPRESSION: No acute intracranial abnormality. D/ / Nazario Flores / Nazario Flores Interpreting Provider: Nazario Flores Echocardiogram 01/17/18 19:47 Impressions: LVEF 55-60%. Normal LV chamber size and function. Mild concentric left ventricular hypertrophy. Mild left ventricular diastolic dysfunction. Normal right ventricular structure and function. No evidence of pulmonary hypertension. No significant valvular dysfunction. Left Ventricular Wall Motion: Rest Echo Findings All wall segments showed normal motion. Findings: Study Quality * Technically adequate exam. ECG Findings * Normal sinus rhythm. Left Ventricle * LVEF 55-60%. * Normal LV chamber size and function. * Mild concentric left ventricular hypertrophy. * Mild left ventricular diastolic dysfunction. Right Ventricle * Normal right ventricular structure and function. Left Atrium * Mildly dilated left atrium. Right Atrium * Mildly dilated right atrium. Aortic Valve * Aortic valve not well visualized. * No aortic regurgitation. * No aortic stenosis. Mitral Valve * Normal mitral valve structure and function. * No mitral regurgitation. * No mitral stenosis. Tricuspid Valve * Normal tricuspid valve structure and function. * Trace tricuspid regurgitation. * No evidence of pulmonary hypertension. Pulmonic Valve * Pulmonic valve is not well visualized. * No pulmonic regurgitation. Aorta * Normally sized aortic root. Pericardium * There is a trivial pericardial effusion present. IVC * Normal IVC dimensions and inspiratory collapse. Pulmonary Artery * Normal visualized portions of the main pulmonary artery. Pulmonary Perfusion Imaging 01/17/18 21:11 IMPRESSION: 1. Intermediate probability (20-80%) for pulmonary embolism. 2. Single segment V/Q mismatch with decreased perfusion involving the anterior segment of the left upper lobe. D/ / Yomi Carlton MD / Yomi Carlton MD Interpreting Provider: Yomi Carlton MD Chest X-Ray 01/21/18 11:27 IMPRESSION: Persistent bibasilar atelectasis with small left pleural effusion. D/ / 01/21/2018 12:25:51 Luz Lugo MD / [facility] Interpreting Provider: Luz Lugo MD KUB X-Ray 01/22/18 10:14 IMPRESSION: Mild dilatation of small bowel, measuring up to 4 cm, and relative decompression of the colon suggest small bowel obstruction. The findings were sent to the Radiology Results Communication [facility] at 12:47 pm on 01/22/2018to be communicated to a licensed caregiver. D/ / 01/22/2018 13:12:40 Yohana Lugo MD / [facility] Interpreting Provider: Yohana Lugo MD Consult Discharge Plan - Plan Referrals: Lio Gold INTERNET CAFE MANAGER [Primary Care Provider] - - Attending Attestation For this encounter, I have reviewed the WAITER/WAITRESS BUFFET or PA documentation, treatment plan, and medical decision making; and I have had face to face time with this patient.
[2018-01-23] MEDS: Insulin LISPRO 300 UNITS/3 ML VIAL SQ SCH ×4 (00:51→17:57)
[2018-01-23] MEDS: Insulin DETEMIR 100 UNIT/ML X5UNITS SQ SCH ×2 (03:23→20:57)
[2018-01-23] MEDS: Ipratropium/Albuterol Neb 3 ML IH SCH ×4 (04:01→22:03)
[2018-01-23 04:34] LABS: Basophils # 0.1 K/mcL (0.0-0.2); Basophils % 0.8 %; Eosinophils # 0.5 K/mcL (0.0-0.6); Eosinophils % 4.9 %; Hematocrit 43.9 % (37.5-50.1); Hemoglobin 14.6 g/dL (12.9-16.9); Immature Granulocytes % 0.8 % (0-4); Lymphocytes # 2.4 K/mcL (0.6-4.6); Lymphocytes % 21.8 %; Mean Corpuscular HGB Conc 33.3 g/dL (31.6-35.5); Mean Corpuscular Hemoglobin 30.4 pg (28.0-33.3); Mean Corpuscular Volume 91.5 fL (83.0-100.0); Mean Platelet Volume 12.1 fL (9.4-12.4); Monocytes # 0.8 K/mcL (0.0-1.3); Monocytes % 7.5 %; Neutrophils # 7.1 K/mcL (1.6-8.9); Platelet Count 215 K/mcL (140-400); Red Cell Distribution Width 16.1 % (11.5-14.5); Segmented Neutrophils % 64.2 %
[2018-01-23 04:44] LABS: INR 1.4
[2018-01-23 04:59] LABS: Calcium 9.1 mg/dL (8.6-10.3); Potassium 4.5 mEq/L (3.5-5.1)
[2018-01-23] MEDS ORDERED: 0.9 % Sodium Chloride 1,000 ML IVC ONE (07:49)
--- NOTE | 2018-01-23 08:37 | General Surgery Progress Note ---
Date of Encounter: 01/23/18 Time of Encounter: 08:15 - Assessment and Plan (1) Ileus Current Visit: No Status: Acute Passing flatus multiple BMs; SBO vs. Ileus. Denies current nausea or vomiting. Discussed case with Hospitalist. - cont NPO - Insert NG tube if patient develops nausea/vomiting - IV fluids; lyte correction as needed - monitor BMP qAM while NPO - Serial abdominal exams - CT-Abd/Pelv ordered per hospitalist - Consider SBFT in the next 24-48 hours if no further sign of improvement or if worsening CT Abdomen/Pelvis 01/23/18 Several mild to moderately distended fluid-filled loops of mid and distal small bowel with some air-fluid levels but no small bowel wall thickening. No evident transition point. Differential diagnosis would include partial distal mechanical small bowel obstruction; infectious or inflammatory enteritis; and diarrhea. Ileus felt to be less likely. Being treated for PE. Associated comorbidities include diabetes mellitus, CAD , COPD, HLP, CKD, and physical deconditioning; PE and associated comorbidities be monitored and treated by hospitalist team. (2) Pulmonary embolism Current Visit: Yes Status: Acute Currently on heparin drip; all associated management per hospitalist team. Qualifiers: Pulmonary embolism type: other Chronicity: acute Acute cor pulmonale presence: without acute cor pulmonale Qualified Code(s): I26.99 - Other pulmonary embolism without acute cor pulmonale (3) Physical deconditioning Current Visit: No Status: Chronic (4) Coronary artery disease Current Visit: No Status: Chronic Qualifiers: Coronary Disease-Associated Artery/Lesion type: [place] artery [place] vs. 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 Denies any nausea, vomiting today. Continues to pass plentiful flatus. Has had bowel movement times one since initial surgical consult visit yesterday. Currently NPO. Objective Vital Signs - Last 8 Hours Temp Pulse Resp BP Pulse Ox 01/23/18 06:43 97.9 F 80 18 128/74 93 01/23/18 04:02 16 92 01/23/18 04:00 97.7 F 80 19 124/61 93 Intake and Output 01/22/18 01/23/18 01/23/18 23:59 07:59 15:59 Intake Total 500 / 500 0 / 0 Output Total 200 / 200 0 / 0 Balance 300 / 300 0 / 0 Intake: IV Fluids 500 / 500 Heparin 25,000 UNIT/500 ML D5W 500 / 500 25,000 unit In 500 ml @ 14 UNIT /KG/HR 31.22 mls/hr IVC .Q16H1M [facility] Rx#:[id number] Oral 0 / 0 0 / 0 Output: Urine 200 / 200 0 / 0 Other: Stool Size Small Stool Consistency loose Stool Color Brown Weight 107.5 kg Blood Glucose* 175 187 Patient Weight 01/23/18 23:59 Weight 107.5 kg VITAL SIGNS: Reviewed. See [facility] GENERAL: restfully supine in bed, no acute distress, apparently comfortable, answers questions appropriately HEENT: Normocephalic, PER, EOMi, oropharynx pink/moist CV: b/l rad pulses 2+, RRR, no murmurs or gallops, no JVD RESPIRATORY: CTAB without wheezes, rales, or rhonchi ABD: hypoactive bowel sounds, soft, non-tender, no rebound/guarding/rigidity, somewhat distended, no peritoneal signs EXTREMITY: grossly normal motor function, no pedal edema, peripheral pulses 2+ b /l NEUROLOGIC EXAM: answers questions appropriately, obeys commands, no speech deficits. PSYCHIATRIC: normal mood and affect SKIN: no gross lesions, rashes, or skin changes - Labs 01/23/18 03:59 01/23/18 03:59 Diabetes panel 01/23/18 Range/Units 03:59 Sodium 137 (136-145) mEq/L Potassium 4.5 (3.5-5.1) mEq/L Chloride 100 (98-107) mEq/L Carbon Dioxide 24 (23-29) mEq/L BUN 52 H (8-23) mg/dL Creatinine 3.12 H (0.70-1.30) mg/dL Glucose 205 H (70-105) mg/dL Calcium 9.1 (8.6-10.3) mg/dL Calcium panel 01/23/18 Range/Units 03:59 Calcium 9.1 (8.6-10.3) mg/dL Pituitary panel 01/23/18 Range/Units 03:59 Sodium 137 (136-145) mEq/L Potassium 4.5 (3.5-5.1) mEq/L Chloride 100 (98-107) mEq/L Carbon Dioxide 24 (23-29) mEq/L BUN 52 H (8-23) mg/dL Creatinine 3.12 H (0.70-1.30) mg/dL Glucose 205 H (70-105) mg/dL Calcium 9.1 (8.6-10.3) mg/dL Adrenal panel 01/23/18 Range/Units 03:59 Sodium 137 (136-145) mEq/L Potassium 4.5 (3.5-5.1) mEq/L Chloride 100 (98-107) mEq/L Carbon Dioxide 24 (23-29) mEq/L BUN 52 H (8-23) mg/dL Creatinine 3.12 H (0.70-1.30) mg/dL Glucose 205 H (70-105) mg/dL Calcium 9.1 (8.6-10.3) mg/dL Consult Discharge Plan - Plan Referrals: Lio Gold CNP [Primary Care Provider] -
[2018-01-23] MEDS: Isosorbide MONOnitrate (24 HR) 30 MG TAB.ER.24H PO SCH (09:33)
[2018-01-23] MEDS: Pantoprazole 40 MG VIAL IVP SCH (09:35)
--- NOTE | 2018-01-23 11:08 | Internal Med Progress Note ---
Date of Encounter: 01/23/18 Time of Encounter: 11:06 - Assessment and plan (1) Acute on chronic renal failure Current Visit: Yes Status: Acute Assessment and plan: IVF bolus 1L given Continue to monitor avoid nephrotoxins consider renal eval if no improvement Qualifiers: Acute renal failure type: unspecified Chronic kidney disease stage: stage 4 (severe) Qualified Code(s): N17.9 - Acute kidney failure, unspecified; N18.4 - Chronic kidney disease, stage 4 (severe) (2) Small bowel obstruction Current Visit: Yes Status: Acute Assessment and plan: KUB done 01/22 showed SBO Patient not actively vomiting, BS hypoactive Surgery is following Abd/Pelvis CT done today : "Several mild to moderately distended fluid-filled loops of mid and distal small bowel with some air-fluid levels but no small bowel wall thickening. No evident transition point. Differential diagnosis would include partial distal mechanical small bowel obstruction; infectious or inflammatory enteritis; and diarrhea. Ileus felt to be less likely due to lack of large bowel distention" Plan: Continue NPO status Abdomen exam is not acute Follow recommendations by surgery (3) Chronic diastolic CHF (congestive heart failure) Current Visit: Yes Status: Chronic Assessment and plan: History of diastolic CHF Echo with EF 55-60%, normal LV, mild concentric LVH, mild LV diastolic dysfunction, normal RV, no evidence of pulm htn, no significant valvular dysfunction Hold home lasix at this time due to renal function (4) Acute respiratory failure with hypoxia Current Visit: Yes Status: Acute Assessment and plan: Secondary to PE with left lower extremity DVT. Shortness of breath improved, but continues to need supplemental O2 with exertion. Continue heparin, warfarin held since 01/22 due to SBO and NPO status (5) Physical deconditioning Current Visit: Yes Status: Chronic Assessment and plan: PT/OT evaluated, plan for discharge to [facility]. (6) CKD (chronic kidney disease) stage 4, GFR 15-29 ml/min Current Visit: Yes Status: Chronic Assessment and plan: Now has JAYLON on CKD (7) Diabetes mellitus Current Visit: Yes Status: Chronic Assessment and plan: FS acceptable Continue levemir, continue sliding scale, monitor FS q4h due to NPO status Goal FS is 150-180 Qualifiers: Diabetes mellitus type: type 2 Diabetes mellitus terminal operator insulin use: with terminal operator use Diabetes mellitus complication status: with kidney complications Diabetes mellitus complication detail: with chronic kidney disease Chronic kidney disease stage: stage 4 (severe) Qualified Code(s): E11.22 - Type 2 diabetes mellitus with diabetic chronic kidney disease; N18.4 - Chronic kidney disease, stage 4 (severe); Z79.4 - technician terminal and repeater (current) use of insulin (8) DVT prophylaxis Current Visit: Yes Status: Acute Assessment and plan: Heparin drip, (9) Pulmonary embolism Current Visit: Yes Status: Acute Assessment and plan: V/Q with intermediate probability of PE, unable to get CTA due to history of CKD stage 4. Lower extremity ultrasound confirmed DVT in the left lower extremity. Echocardiogram shows LVEF of 55-60% without right heart strain. With mild left ventricular diastolic dysfunction. INR now 1.3 from 1.1 yesterday. Continue with warfarin per pharmacy dosing to goal of 2-3. HOLD Warfarin and continue heparin drip as patient has SBO Continue to monitor PTT Qualifiers: Pulmonary embolism type: other Chronicity: acute Acute cor pulmonale presence: without acute cor pulmonale Qualified Code(s): I26.99 - Other pulmonary embolism without acute cor pulmonale (10) Nausea and vomiting Current Visit: Yes Status: Acute Assessment and plan: Due to SBO Resolved now, continue to monitor and continue antiemetics Qualifiers: Vomiting type: unspecified Vomiting Intractability: non-intractable Qualified Code(s): R11.2 - Nausea with vomiting, unspecified - Time Spent With Patient Total time spent is greater than 50% in coordination of care (as documented) at patient's floor/unit and/or counseling patient: - Subjective Interval history: Seen and evaluated at bedside He has no vomiting He had a BM last night He denies new complains His abdomen is not acute Surgery is following - Constitutional Vitals: Temp Pulse Resp BP Pulse Ox 97.9 F 80 16 128/74 95 01/23/18 06:43 01/23/18 06:43 01/23/18 09:58 01/23/18 06:43 01/23/18 09:58 General appearance: Present: A&O X 3, pleasant, no acute distress, obese, answers questions appropriately - Head Head exam: Present: atraumatic, normocephalic - Eye Eye exam: Present: PERRL, conjuntiva pink, sclera anicteric Pupils: Present: PERRL - Neck Neck exam general surgery: Present: supple, trachea midline. Absent: lymphadenopathy - Respiratory Respiratory exam: Present: CTAB. Absent: accessory muscle use, rales, rhonchi, wheezes - Cardiovascular Cardiovascular exam: Present: RRR, +S1, +S2. Absent: diastolic murmur, gallop, rubs, systolic murmur - GI/Abdominal GI/Abdominal exam: Present: hypoactive bowel sounds, soft, no peritoneal signs. Absent: distended, tenderness - Extremities Exam Extremities exam: Present: warm, radial pulses palpable and symmetrical. Absent : calf tenderness, cyanotic, pedal edema - Neurological Exam Neurological exam: Present: alert, CN II-XII intact, oriented X3, no focal deficits. Absent: pronater drift, facial droop, speech deficit - Skin Skin exam: Present: dry, intact Internal Medicine: Result - Labs CBC & Chem 7: 01/23/18 03:59 01/23/18 03:59 Labs: Short CBC 01/23/18 Range/Units 03:59 WBC 11.0 (4.3-11.1) K/mcL Hgb 14.6 (12.9-16.9) g/dL Hct 43.9 (37.5-50.1) % Plt Count 215 (140-400) K/mcL Neutrophils # 7.1 (1.6-8.9) K/mcL BMP 01/23/18 03:59 Sodium 137 Potassium 4.5 Chloride 100 Carbon Dioxide 24 BUN 52 H Creatinine 3.12 H Glucose 205 H Calcium 9.1 - ABG Interpretation ABG results: ABG ABG pH 7.42 pH Units (7.32-7.45) 01/17/18 20:40 ABG pCO2 39 mmHg (35-45) 01/17/18 20:40 ABG pO2 70 mmHg (85-104) L 01/17/18 20:40 ABG O2 Saturation 94 % (95-98) L 01/17/18 20:40 PT/INR, D-dimer PT 15.0 Seconds (9.4-12.1) H 01/23/18 03:59 D-Dimer 1566 ng/mLFEU (0-500) H 01/17/18 20:09 - Impressions Impressions KUB X-Ray 01/22/18 10:14 IMPRESSION: Mild dilatation of small bowel, measuring up to 4 cm, and relative decompression of the colon suggest small bowel obstruction. The findings were sent to the [facility] at 12:47 pm on 01/22/2018to be communicated to a licensed caregiver. D/ / 01/22/2018 13:12:40 Yohana Lugo MD / paresh Interpreting Provider: Yohana Lugo MD Consult Discharge Plan - Plan Referrals: Lio Gold CNP [Primary Care Provider] -
[2018-01-23] MEDS: Ondansetron 4 MG/2 ML VIAL IVP PRN (15:54)
[2018-01-23] MEDS: Heparin 25,000 UNIT/500 ML D5W 25,000 UNIT/500 ML BAG IVC SCH (17:31)
[2018-01-24] MEDS: Insulin LISPRO 300 UNITS/3 ML VIAL SQ SCH ×4 (00:20→16:16)
[2018-01-24] MEDS: Ipratropium/Albuterol Neb 3 ML IH SCH ×4 (03:45→22:06)
[2018-01-24 04:55] LABS: Basophils # 0.1 K/mcL (0.0-0.2); Basophils % 0.9 %; Eosinophils # 0.5 K/mcL (0.0-0.6); Eosinophils % 6.2 %; Hematocrit 45.3 % (37.5-50.1); Immature Granulocytes % 1.3 % (0-4); Lymphocytes # 2.2 K/mcL (0.6-4.6); Mean Corpuscular HGB Conc 33.1 g/dL (31.6-35.5); Mean Corpuscular Hemoglobin 30.9 pg (28.0-33.3); Mean Corpuscular Volume 93.4 fL (83.0-100.0); Monocytes # 0.7 K/mcL (0.0-1.3); Monocytes % 8.4 %; Neutrophils # 4.9 K/mcL (1.6-8.9); Platelet Count 183 K/mcL (140-400); Red Blood Count 4.85 M/mcL (4.19-5.50); Red Cell Distribution Width 16.3 % (11.5-14.5); Segmented Neutrophils % 57.2 %
[2018-01-24 05:00] LABS: INR 1.3; Prothrombin Time 14.3 Seconds (9.4-12.1)
[2018-01-24 05:21] LABS: Calcium 8.8 mg/dL (8.6-10.3); Potassium 4.2 mEq/L (3.5-5.1)
[2018-01-24] MEDS: Ondansetron 4 MG/2 ML VIAL IVP PRN ×2 (06:28→18:23)
--- NOTE | 2018-01-24 08:55 | General Surgery Progress Note ---
Date of Encounter: 01/24/18 Time of Encounter: 06:30 - Assessment and Plan (1) Ileus Current Visit: No Status: Acute SBO (unlikely due to passage of BM & Flatus) vs. Ileus (most likely). Denies current nausea or vomiting. Discussed case with Hospitalist. - trialing clear liquids today - Insert NG tube if patient develops nausea/vomiting - IV fluids; lyte correction as needed Surgery will sign off at this point; call if needed for reevaluation. (2) Pulmonary embolism Current Visit: Yes Status: Acute Currently on heparin drip; all associated management per hospitalist team. Qualifiers: Qualified Code(s): I26.99 - Other pulmonary embolism without acute cor pulmonale (3) Physical deconditioning Current Visit: No Status: Chronic (4) Coronary artery disease Current Visit: No Status: Chronic Qualifiers: Qualified Code(s): I25.10 - Atherosclerotic heart disease of [place] coronary artery without angina pectoris (5) COPD (chronic obstructive pulmonary disease) Current Visit: No Status: Chronic Qualifiers: Qualified Code(s): J41.0 - Simple chronic bronchitis (6) Diabetes mellitus Current Visit: Yes Status: Chronic Qualifiers: Qualified Code(s): E11.22 - Type 2 diabetes mellitus with diabetic chronic kidney disease; N18.4 - Chronic kidney disease, stage 4 (severe); Z79.4 - adjunct faculty for medical terminology (current) use of insulin (7) CKD (chronic kidney disease) stage 3, GFR 30-59 ml/min Current Visit: Yes Status: Chronic Subjective Narrative: Denies abdominal pain this morning. States has been dry heaving but not vomiting. Had one bowel movement overnight. Afebrile overnight. Objective Vital Signs - Last 8 Hours Temp Pulse Resp BP Pulse Ox 01/24/18 07:05 97.9 F 93 18 157/77 95 01/24/18 04:03 97.6 F 84 18 147/91 92 01/24/18 03:45 17 93 Intake and Output 01/23/18 01/24/18 01/24/18 23:59 07:59 15:59 Intake Total 75.5 / 75.5 0 / 0 Output Total 0 / 0 400 / 400 Balance 75.5 / 75.5 -400 / -400 Intake: IV Fluids 75.5 / 75.5 Heparin 25,000 UNIT/500 ML D5W 75.5 / 75.5 25,000 unit In 500 ml @ 14 UNIT /KG/HR 31.22 mls/hr IVC .Q16H1M LOLI Rx#:[id number] Oral 0 / 0 0 / 0 Output: Urine 0 / 0 400 / 400 Other: # Voids 1 0 Weight 108.3 kg Blood Glucose* 139 173 Patient Weight 01/24/18 23:59 Weight 108.3 kg Stable exam from 01/23/18 VITAL SIGNS: Reviewed. See [facility] GENERAL: restfully supine in bed, no acute distress, apparently comfortable, answers questions appropriately HEENT: Normocephalic, PER, EOMi, oropharynx pink/moist CV: b/l rad pulses 2+, RRR, no murmurs or gallops, no JVD RESPIRATORY: CTAB without wheezes, rales, or rhonchi ABD: hypoactive bowel sounds, soft, non-tender, no rebound/guarding/rigidity, somewhat distended, no peritoneal signs EXTREMITY: grossly normal motor function, no pedal edema, peripheral pulses 2+ b /l NEUROLOGIC EXAM: answers questions appropriately, obeys commands, no speech deficits. PSYCHIATRIC: normal mood and affect SKIN: no gross lesions, rashes, or skin changes - Labs 01/24/18 04:34 01/24/18 04:34 Diabetes panel 01/24/18 Range/Units 04:34 Sodium 138 (136-145) mEq/L Potassium 4.2 (3.5-5.1) mEq/L Chloride 102 (98-107) mEq/L Carbon Dioxide 24 (23-29) mEq/L BUN 50 H (8-23) mg/dL Creatinine 2.55 H (0.70-1.30) mg/dL Glucose 168 H (70-105) mg/dL Calcium 8.8 (8.6-10.3) mg/dL Calcium panel 01/24/18 Range/Units 04:34 Calcium 8.8 (8.6-10.3) mg/dL Pituitary panel 01/24/18 Range/Units 04:34 Sodium 138 (136-145) mEq/L Potassium 4.2 (3.5-5.1) mEq/L Chloride 102 (98-107) mEq/L Carbon Dioxide 24 (23-29) mEq/L BUN 50 H (8-23) mg/dL Creatinine 2.55 H (0.70-1.30) mg/dL Glucose 168 H (70-105) mg/dL Calcium 8.8 (8.6-10.3) mg/dL Adrenal panel 01/24/18 Range/Units 04:34 Sodium 138 (136-145) mEq/L Potassium 4.2 (3.5-5.1) mEq/L Chloride 102 (98-107) mEq/L Carbon Dioxide 24 (23-29) mEq/L BUN 50 H (8-23) mg/dL Creatinine 2.55 H (0.70-1.30) mg/dL Glucose 168 H (70-105) mg/dL Calcium 8.8 (8.6-10.3) mg/dL Consult Discharge Plan - Plan Referrals: Lio Gold CNP [Primary Care Provider] -
[2018-01-24] MEDS: Furosemide 40 MG TABLET PO SCH (09:00)
[2018-01-24] MEDS: Isosorbide MONOnitrate (24 HR) 30 MG TAB.ER.24H PO SCH (09:00)
[2018-01-24] MEDS: Pantoprazole 40 MG VIAL IVP SCH (09:00)
--- NOTE | 2018-01-24 11:37 | Internal Med Progress Note ---
Date of Encounter: 01/24/18 Time of Encounter: 11:37 - Assessment and plan (1) Acute on chronic renal failure Current Visit: Yes Status: Acute Assessment and plan: Improving. Cr 3.12 01/23 Today 2.55 s/p IVF bolus 1L given Continue to monitor avoid nephrotoxins Qualifiers: Acute renal failure type: unspecified Chronic kidney disease stage: stage 4 (severe) Qualified Code(s): N17.9 - Acute kidney failure, unspecified; N18.4 - Chronic kidney disease, stage 4 (severe) (2) Small bowel obstruction Current Visit: Yes Status: Acute Assessment and plan: KUB done 01/22 showed SBO Patient not actively vomiting, BS hypoactive Abd/Pelvis CT done today : "Several mild to moderately distended fluid-filled loops of mid and distal small bowel with some air-fluid levels but no small bowel wall thickening. No evident transition point. Differential diagnosis would include partial distal mechanical small bowel obstruction; infectious or inflammatory enteritis; and diarrhea. Ileus felt to be less likely due to lack of large bowel distention" Abdomen is soft, with BS present No vomiting, patient is having BM Start on clear liquid diet Surgery eval is pending (3) Chronic diastolic CHF (congestive heart failure) Current Visit: Yes Status: Chronic Assessment and plan: History of diastolic CHF Echo with EF 55-60%, normal LV, mild concentric LVH, mild LV diastolic dysfunction, normal RV, no evidence of pulm htn, no significant valvular dysfunction Continue to Hold home lasix at this time due to renal function If renal function remains stable, may resume a.m (4) Acute respiratory failure with hypoxia Current Visit: Yes Status: Acute Assessment and plan: Secondary to PE with left lower extremity DVT. Shortness of breath improved, but continues to need supplemental O2 with exertion. Continue heparin, warfarin held since 01/22 due to SBO and NPO status Started on clear liquid diet today, if patient is being fed , may resume coumadin Monitor INR (5) Physical deconditioning Current Visit: Yes Status: Chronic Assessment and plan: PT/OT evaluated, plan for discharge to [facility]. (6) CKD (chronic kidney disease) stage 4, GFR 15-29 ml/min Current Visit: Yes Status: Chronic Assessment and plan: Now has JAYLON on CKD, improving (7) Diabetes mellitus Current Visit: Yes Status: Chronic Assessment and plan: FS acceptable Continue levemir, continue sliding scale, monitor FS q4h due to NPO status Goal FS is 150-180 Qualifiers: Diabetes mellitus type: type 2 Diabetes mellitus nursing home insulin use: with nursing home use Diabetes mellitus complication status: with kidney complications Diabetes mellitus complication detail: with chronic kidney disease Chronic kidney disease stage: stage 4 (severe) Qualified Code(s): E11.22 - Type 2 diabetes mellitus with diabetic chronic kidney disease; N18.4 - Chronic kidney disease, stage 4 (severe); Z79.4 - human resources vice president (current) use of insulin (8) DVT prophylaxis Current Visit: Yes Status: Acute Assessment and plan: Heparin drip, (9) Pulmonary embolism Current Visit: Yes Status: Acute Assessment and plan: V/Q with intermediate probability of PE, unable to get CTA due to history of CKD stage 4. Lower extremity ultrasound confirmed DVT in the left lower extremity. Echocardiogram shows LVEF of 55-60% without right heart strain. With mild left ventricular diastolic dysfunction. INR now 1.3 from 1.1 yesterday. Continue with warfarin per pharmacy dosing to goal of 2-3. Hold Warfarin and continue heparin drip as patient has SBO Continue to monitor PTT Qualifiers: Pulmonary embolism type: other Chronicity: acute Acute cor pulmonale presence: without acute cor pulmonale Qualified Code(s): I26.99 - Other pulmonary embolism without acute cor pulmonale (10) Nausea and vomiting Current Visit: Yes Status: Resolved Assessment and plan: Due to SBO Resolved now, continue to monitor and continue antiemetics Qualifiers: Vomiting type: unspecified Vomiting Intractability: non-intractable Qualified Code(s): R11.2 - Nausea with vomiting, unspecified - Time Spent With Patient Total time spent is greater than 50% in coordination of care (as documented) at patient's floor/unit and/or counseling patient: - Subjective Interval history: Seen and evaluated at bedside He has no vomiting Abd/Pelvis CT from 01/23 noted. Patient had 2 BM overnight and one this a.m He denies new complains His abdomen is not acute Surgery is following, recommendations pending We will allow clear liquids for now - Constitutional Vitals: Temp Pulse Resp BP Pulse Ox 97.9 F 93 18 157/77 95 01/24/18 07:05 01/24/18 07:05 01/24/18 07:05 01/24/18 07:05 01/24/18 07:05 General appearance: Present: A&O X 3, pleasant, no acute distress, obese, answers questions appropriately - Head Head exam: Present: atraumatic, normocephalic - Eye Eye exam: Present: PERRL, conjuntiva pink, sclera anicteric Pupils: Present: PERRL - Neck Neck exam general surgery: Present: supple, trachea midline. Absent: lymphadenopathy - Respiratory Respiratory exam: Present: CTAB. Absent: accessory muscle use, rales, rhonchi, wheezes - Cardiovascular Cardiovascular exam: Present: RRR, +S1, +S2. Absent: diastolic murmur, gallop, rubs, systolic murmur - GI/Abdominal GI/Abdominal exam: Present: normal bowel sounds, soft, no peritoneal signs. Absent: distended, tenderness - Extremities Exam Extremities exam: Present: warm, radial pulses palpable and symmetrical. Absent : calf tenderness, cyanotic, pedal edema - Neurological Exam Neurological exam: Present: alert, CN II-XII intact, oriented X3, no focal deficits. Absent: pronater drift, facial droop, speech deficit - Skin Skin exam: Present: dry, intact Internal Medicine: Result - Labs CBC & Chem 7: 01/24/18 04:34 01/24/18 04:34 Labs: Short CBC 01/24/18 Range/Units 04:34 WBC 8.6 (4.3-11.1) K/mcL Hgb 15.0 (12.9-16.9) g/dL Hct 45.3 (37.5-50.1) % Plt Count 183 (140-400) K/mcL Neutrophils # 4.9 (1.6-8.9) K/mcL BMP 01/24/18 04:34 Sodium 138 Potassium 4.2 Chloride 102 Carbon Dioxide 24 BUN 50 H Creatinine 2.55 H Glucose 168 H Calcium 8.8 - ABG Interpretation ABG results: ABG ABG pH 7.42 pH Units (7.32-7.45) 01/17/18 20:40 ABG pCO2 39 mmHg (35-45) 01/17/18 20:40 ABG pO2 70 mmHg (85-104) L 01/17/18 20:40 ABG O2 Saturation 94 % (95-98) L 01/17/18 20:40 PT/INR, D-dimer PT 14.3 Seconds (9.4-12.1) H 01/24/18 04:34 D-Dimer 1566 ng/mLFEU (0-500) H 01/17/18 20:09 - Impressions Impressions Chest X-Ray 01/21/18 11:27 IMPRESSION: Persistent bibasilar atelectasis with small left pleural effusion. D/ / 01/21/2018 12:25:51 Luz Lugo MD / niya Interpreting Provider: Luz Lugo MD Consult Discharge Plan - Plan Referrals: Lio Gold CNP [Primary Care Provider] -
[2018-01-24] MEDS: Heparin 25,000 UNIT/500 ML D5W 25,000 UNIT/500 ML BAG IVC SCH (16:13)
[2018-01-24] MEDS: Sennosides/Docusate Sodium TABLET PO SCH (16:14)
[2018-01-24] MEDS ORDERED: Warfarin perPT PO PRN (18:00)
[2018-01-24] MEDS ORDERED: *HR* Warfarin 5 MG TABLET PO ONE (18:00)
[2018-01-24] MEDS: Insulin DETEMIR 100 UNIT/ML X5UNITS SQ SCH (22:16)
[2018-01-25] MEDS: Insulin LISPRO 300 UNITS/3 ML VIAL SQ SCH ×4 (03:09→21:32)
[2018-01-25 03:25] LABS: INR 1.3; Prothrombin Time 13.9 Seconds (9.4-12.1)
[2018-01-25] MEDS: Ipratropium/Albuterol Neb 3 ML IH SCH ×4 (04:54→22:35)
--- NOTE | 2018-01-25 09:33 | Internal Med Progress Note ---
<Martínez Stevens - Last Filed: 01/25/18 15:01> Date of Encounter: 01/25/18 Time of Encounter: 09:20 - Assessment and plan (1) Chronic diastolic CHF (congestive heart failure) Current Visit: Yes Status: Chronic Assessment and plan: History of diastolic CHF Echo with EF 55-60%, normal LV, mild concentric LVH, mild LV diastolic dysfunction, normal RV, no evidence of pulm htn, no significant valvular dysfunction Resume home lasix (2) Acute respiratory failure with hypoxia Current Visit: Yes Status: Acute Assessment and plan: Secondary to PE with left lower extremity DVT Shortness of breath improved, but continues to need supplemental O2 with exertion Continue heparin, warfarin held since 01/22 due to SBO and NPO status We will resume Coumadin Patient diet advance to full liquids Monitor INR (3) Physical deconditioning Current Visit: Yes Status: Chronic Assessment and plan: PT/OT evaluated, plan for discharge to [facility]. (4) CKD (chronic kidney disease) stage 4, GFR 15-29 ml/min Current Visit: Yes Status: Chronic Assessment and plan: JAYLON now resolving Renal function closer to baseline Avoid potentially nephrotoxic agents (5) Diabetes mellitus Current Visit: Yes Status: Chronic Assessment and plan: Accuchecks acceptable Continue levemir, continue sliding scale, monitor FS q4h due to NPO status Goal BG is 150-180 Qualifiers: Diabetes mellitus type: type 2 Diabetes mellitus care home insulin use: with care home use Diabetes mellitus complication status: with kidney complications Diabetes mellitus complication detail: with chronic kidney disease Chronic kidney disease stage: stage 4 (severe) Qualified Code(s): E11.22 - Type 2 diabetes mellitus with diabetic chronic kidney disease; N18.4 - Chronic kidney disease, stage 4 (severe); 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 With mild left ventricular diastolic dysfunction INR now 1.3 from 1.1 yesterday. Continue with warfarin per pharmacy dosing to goal of 2-3 Restart patient warfarin, dosed per pharmacy Continue to monitor PTT Qualifiers: Pulmonary embolism type: other Chronicity: acute Acute cor pulmonale presence: without acute cor pulmonale Qualified Code(s): I26.99 - Other pulmonary embolism without acute cor pulmonale (8) Nausea and vomiting Current Visit: Yes Status: Resolved Assessment and plan: Due to SBO Resolved now, continue to monitor and continue antiemetics Qualifiers: Vomiting type: unspecified Vomiting Intractability: non-intractable Qualified Code(s): R11.2 - Nausea with vomiting, unspecified (9) Small bowel obstruction Current Visit: Yes Status: Acute Assessment and plan: KUB done 01/22 showed SBO Patient not actively vomiting, BS hypoactive Abd/Pelvis CT : "Several mild to moderately distended fluid-filled loops of mid and distal small bowel with some air-fluid levels but no small bowel wall thickening. No evident transition point. Differential diagnosis would include partial distal mechanical small bowel obstruction; infectious or inflammatory enteritis; and diarrhea. Ileus felt to be less likely due to lack of large bowel distention" Abdomen is soft, with BS present No vomiting, patient is having BM Advacne to full liquid diet Surgery has signed off (10) Acute on chronic renal failure Current Visit: Yes Status: Acute Assessment and plan: Improving Cr 3.12 01/23 Today 2.55 s/p IVF bolus 1L given Continue to monitor avoid nephrotoxins Qualifiers: Acute renal failure type: unspecified Chronic kidney disease stage: stage 4 (severe) Qualified Code(s): N17.9 - Acute kidney failure, unspecified; N18.4 - Chronic kidney disease, stage 4 (severe) - Time Spent With Patient Total time spent is greater than 50% in coordination of care (as documented) at patient's floor/unit and/or counseling patient: - Subjective Interval history: Patient is doing well today. He reports that he has developed a dry cough and still feels slightly nauseous. He denies having any vomiting and denies abdominal pain. He denies chest pain, denies dyspnea, and denies fever/chills. - Constitutional Vitals: Temp Pulse Resp BP Pulse Ox 97.6 F 99 15 150/85 90 01/25/18 06:35 01/25/18 06:35 01/25/18 06:35 01/25/18 06:35 01/25/18 06:35 General appearance: Present: A&O X 3, pleasant, no acute distress, obese, answers questions appropriately Exam: General: Cooperative, pleasant, no acute distress, alert and oriented 3, answers questions appropriately HEENT: Normocephalic, atraumatic, Conjunctiva pink, sclera anicteric, oral mucosa moist, no orophargeal erythema or exudates Respiratory: No accessory muscle usage, good air movement, mild bibasilar Rales Cardiovascular: Regular rate and rhythm, S1 and S2 present, no murmurs/rubs/ gallops/clicks appreciated GI/abdominal: Nondistended, nontender, soft, normal bowel sounds, no peritoneal signs Extremities: No calf tenderness, noncyanotic, no pedal edema appreciated, warm, lower extremity pulses palpable and symmetrical Neurological: Alert and oriented 3, no facial droop, no focal deficits Skin: Dry, intact, normal color Internal Medicine: Result - Labs CBC & Chem 7: 01/24/18 04:34 01/24/18 04:34 - ABG Interpretation ABG results: ABG ABG pH 7.42 pH Units (7.32-7.45) 01/17/18 20:40 ABG pCO2 39 mmHg (35-45) 01/17/18 20:40 ABG pO2 70 mmHg (85-104) L 01/17/18 20:40 ABG O2 Saturation 94 % (95-98) L 01/17/18 20:40 PT/INR, D-dimer PT 13.9 Seconds (9.4-12.1) H 01/25/18 02:35 D-Dimer 1566 ng/mLFEU (0-500) H 01/17/18 20:09 Consult Discharge Plan - Plan Referrals: Lio Gold CNP [Primary Care Provider] - <Kaleb Rodriguez - Last Filed: 01/25/18 15:28> Date of Encounter: 01/25/18 - Assessment and plan (1) Chronic diastolic CHF (congestive heart failure) Current Visit: Yes Status: Chronic (2) Acute respiratory failure with hypoxia Current Visit: Yes Status: Acute (3) Physical deconditioning Current Visit: Yes Status: Chronic (4) CKD (chronic kidney disease) stage 4, GFR 15-29 ml/min Current Visit: Yes Status: Chronic (5) Diabetes mellitus Current Visit: Yes Status: Chronic Qualifiers: Diabetes mellitus type: type 2 Diabetes mellitus care home insulin use: with care home use Diabetes mellitus complication status: with kidney complications Diabetes mellitus complication detail: with chronic kidney disease Chronic kidney disease stage: stage 4 (severe) Qualified Code(s): E11.22 - Type 2 diabetes mellitus with diabetic chronic kidney disease; N18.4 - Chronic kidney disease, stage 4 (severe); Z79.4 - custodial (current) use of insulin (6) DVT prophylaxis Current Visit: Yes Status: Acute (7) Pulmonary embolism Current Visit: Yes Status: Acute Qualifiers: Pulmonary embolism type: other Chronicity: acute Acute cor pulmonale presence: without acute cor pulmonale Qualified Code(s): I26.99 - Other pulmonary embolism without acute cor pulmonale (8) Nausea and vomiting Current Visit: Yes Status: Resolved Qualifiers: Vomiting type: unspecified Vomiting Intractability: non-intractable Qualified Code(s): R11.2 - Nausea with vomiting, unspecified (9) Small bowel obstruction Current Visit: Yes Status: Acute (10) Acute on chronic renal failure Current Visit: Yes Status: Acute Qualifiers: Acute renal failure type: unspecified Chronic kidney disease stage: stage 4 (severe) Qualified Code(s): N17.9 - Acute kidney failure, unspecified; N18.4 - Chronic kidney disease, stage 4 (severe) - Time Spent With Patient Total time spent is greater than 50% in coordination of care (as documented) at patient's floor/unit and/or counseling patient: - Constitutional Vitals: Temp Pulse Resp BP Pulse Ox 97.7 F 77 15 146/76 93 01/25/18 14:22 01/25/18 14:22 01/25/18 14:22 01/25/18 14:22 01/25/18 14:22 Internal Medicine: Result - Labs CBC & Chem 7: 01/24/18 04:34 01/24/18 04:34 - ABG Interpretation ABG results: ABG ABG pH 7.42 pH Units (7.32-7.45) 01/17/18 20:40 ABG pCO2 39 mmHg (35-45) 01/17/18 20:40 ABG pO2 70 mmHg (85-104) L 01/17/18 20:40 ABG O2 Saturation 94 % (95-98) L 01/17/18 20:40 PT/INR, D-dimer PT 13.9 Seconds (9.4-12.1) H 01/25/18 02:35 D-Dimer 1566 ng/mLFEU (0-500) H 01/17/18 20:09 - Impressions Impressions Chest X-Ray 01/25/18 09:33 IMPRESSION: Stable chest demonstrating what appears to be persistent bibasilar atelectatic changes and a left-sided pleural effusion D/ / 01/25/2018 11:12:33 Dominik Haynes MD / phuong Interpreting Provider: Dominik Haynes MD - Attending Attestation I examined this patient and my medical decision-making was reviewed with the Resident Physician on 01/25/18. I agree with the documented findings, disposition and treatment plan as described except to the extent set forth below. SBO has resolved, complained off dry cough, CXR with PVC , resume all meds, advance diet, continue anticoagulation. Physical exam is unremarkable, labs are stable. Rest of details as in the resident physician's documentation
[2018-01-25] MEDS: Furosemide 40 MG TABLET PO SCH (10:04)
[2018-01-25] MEDS: Sennosides/Docusate Sodium TABLET PO SCH (10:04)
[2018-01-25] MEDS: Isosorbide MONOnitrate (24 HR) 30 MG TAB.ER.24H PO SCH (10:04)
[2018-01-25] MEDS: Aspirin 81 MG TAB.CHEW PO SCH (10:04)
[2018-01-25] MEDS: Pantoprazole 40 MG VIAL IVP SCH (10:04)
[2018-01-25] MEDS: Heparin 25,000 UNIT/500 ML D5W 25,000 UNIT/500 ML BAG IVC SCH (12:37)
[2018-01-25] MEDS ORDERED: *HR* Warfarin 3 MG TABLET PO ONE (18:00)
[2018-01-25] MEDS: Famotidine 20 MG TABLET PO SCH (21:32)
[2018-01-25] MEDS: Insulin DETEMIR 100 UNIT/ML X5UNITS SQ SCH (21:33)
[2018-01-26] MEDS: Ipratropium/Albuterol Neb 3 ML IH SCH ×4 (03:34→21:09)
[2018-01-26 05:50] LABS: INR 1.5; Prothrombin Time 16.3 Seconds (9.4-12.1)
--- NOTE | 2018-01-26 09:29 | Internal Med Progress Note ---
<JorgebekahDavid - Last Filed: 01/26/18 15:27> Date of Encounter: 01/26/18 Time of Encounter: 09:29 - Assessment and plan (1) Chronic diastolic CHF (congestive heart failure) Current Visit: Yes Status: Chronic Assessment and plan: History of diastolic CHF Echo with EF 55-60%, normal LV, mild concentric LVH, mild LV diastolic dysfunction, normal RV, no evidence of pulm htn, no significant valvular dysfunction CXR 01/25/18 revealed bibasilar atelectatic changes and left-sided pleural effusions. Fluid balance +869mL over past 24 hours -Continue with home lasix dose at 40mg qd -One time lasix 40mg IV. -Repeat CXR as patient continues to sound rhonchorous despite breathing treatments which may represent a questionable development of pneumonia vs still pleural effusions not resolving. No other signs of pneumonia at this time and afebrile, no antibiotics since admission. (2) Acute respiratory failure with hypoxia Current Visit: Yes Status: Acute Assessment and plan: Secondary to PE with left lower extremity DVT Shortness of breath improved, but continues to need supplemental O2 with exertion Continue heparin drip while transitioning to warfarin, INR 1.5. Monitor INR (3) Pulmonary embolism Current Visit: Yes Status: Acute Assessment and plan: V/Q with intermediate probability of PE, unable to get CTA due to history of CKD stage 4 Lower extremity ultrasound confirmed DVT in the left lower extremity Echocardiogram shows LVEF of 55-60% without right heart strain and with mild left ventricular diastolic dysfunction INR now 1.5 from 1.3 yesterday.Continue with warfarin per pharmacy dosing to goal of 2-3 Continues to need supplemental oxygen between 2-3L nc. Continue to monitor INR. Plan to send to SNF once INR at goal. Qualifiers: Pulmonary embolism type: other Chronicity: acute Acute cor pulmonale presence: without acute cor pulmonale Qualified Code(s): I26.99 - Other pulmonary embolism without acute cor pulmonale (4) Physical deconditioning Current Visit: Yes Status: Chronic Assessment and plan: PT/OT evaluated, plan for discharge to [facility]. (5) CKD (chronic kidney disease) stage 4, GFR 15-29 ml/min Current Visit: Yes Status: Chronic Assessment and plan: Known history of CKD Stage 4 with baseline Cr 2.1-2.2 per plan in assessment above. (6) Diabetes mellitus Current Visit: Yes Status: Chronic Assessment and plan: Blood glucose stable in 160-200s. Continue with Levemir and sliding scale insulin. Continue with routine glucose checks. 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 Qualifiers: Vomiting type: unspecified Vomiting Intractability: non-intractable Qualified Code(s): R11.2 - Nausea with vomiting, unspecified (8) Small bowel obstruction Current Visit: Yes Status: Resolved Assessment and plan: Found 01/22/18 due to n/v. Resolved. Advance diet as tolerated, tolerated full liquid without difficulty. Surgery signed off. (9) DVT prophylaxis Current Visit: Yes Status: Acute Assessment and plan: Heparin drip, transitioning to warfarin. INR 1.5 (10) Acute on chronic renal failure Current Visit: Yes Status: Acute Assessment and plan: Cr 2.4, improved from 2.55 yesterday. Baseline approximately Cr 2.1-2.2 Continue to monitor labs Encourage oral fluid intake. Avoid nephrotoxic agents. Qualifiers: Acute renal failure type: unspecified Chronic kidney disease stage: stage 4 (severe) Qualified Code(s): N17.9 - Acute kidney failure, unspecified; N18.4 - Chronic kidney disease, stage 4 (severe) - Time Spent With Patient Total time spent is greater than 50% in coordination of care (as documented) at patient's floor/unit and/or counseling patient: - Subjective Interval history: Patient reports doing okay this morning. Reports shortness of breath improved, but still having coughing fits and sounds rattly overnight. Still using nasal cannula 3L. CXR yesterday revealed left sided pleural effusion. INR 1.5 from 1.3 yesterday. Denies fevers, chills, sweats, nausea, vomiting, chest pain, abdominal pain, changes in bowels or bladder, new weakness. - Constitutional Vitals: Temp Pulse Resp BP Pulse Ox 97.8 F 83 18 143/81 90 01/26/18 07:00 01/26/18 07:00 01/26/18 07:00 01/26/18 07:00 01/26/18 07:00 General appearance: Present: A&O X 2 (not to time), pleasant, no acute distress , obese, answers questions appropriately - Head Head exam: Present: atraumatic, normal inspection, normocephalic - Eye Eye exam: Present: EOMI, normal appearance - ENT ENT exam: Present: mucous membranes moist, normal exam, normal oropharynx - Neck Neck exam general surgery: Present: full ROM, normal inspection, supple, trachea midline - Respiratory Respiratory exam: Present: rhonchi. Absent: rales, respiratory distress, wheezes Additional comments: audible rhonchi and rattling grossly, rhonchi on auscultation throughout - Cardiovascular Cardiovascular exam: Present: RRR, +S1, +S2 - GI/Abdominal GI/Abdominal exam: Present: normal bowel sounds, soft. Absent: tenderness - Extremities Exam Extremities exam: Present: full ROM, pedal edema (minimal left lower extremity edema), warm, radial pulses palpable and symmetrical. Absent: tenderness - Skin Skin exam: Present: dry, intact, normal color, warm Internal Medicine: Result - Labs CBC & Chem 7: 01/24/18 04:34 01/26/18 05:12 Labs: BMP 01/26/18 05:12 Sodium 136 Potassium 4.0 Chloride 101 Carbon Dioxide 25 BUN 46 H Creatinine 2.40 H Glucose 208 H Calcium 9.0 - ABG Interpretation ABG results: ABG ABG pH 7.42 pH Units (7.32-7.45) 01/17/18 20:40 ABG pCO2 39 mmHg (35-45) 01/17/18 20:40 ABG pO2 70 mmHg (85-104) L 01/17/18 20:40 ABG O2 Saturation 94 % (95-98) L 01/17/18 20:40 PT/INR, D-dimer PT 16.3 Seconds (9.4-12.1) H 01/26/18 05:12 D-Dimer 1566 ng/mLFEU (0-500) H 01/17/18 20:09 - Impressions Impressions Chest X-Ray 01/25/18 09:33 IMPRESSION: Stable chest demonstrating what appears to be persistent bibasilar atelectatic changes and a left-sided pleural effusion D/ / 01/25/2018 11:12:33 Dominik Haynes MD / phuong Interpreting Provider: Dominik Haynes MD Consult Discharge Plan - Plan Referrals: Lio Gold CNP [Primary Care Provider] - <Weston Celaya - Last Filed: 01/26/18 18:50> Date of Encounter: 01/26/18 - Assessment and plan (1) Acute respiratory failure with hypoxia Current Visit: Yes Status: Acute (2) Pulmonary embolism Current Visit: Yes Status: Acute Qualifiers: Pulmonary embolism type: other Chronicity: acute Acute cor pulmonale presence: without acute cor pulmonale Qualified Code(s): I26.99 - Other pulmonary embolism without acute cor pulmonale (3) Chronic diastolic CHF (congestive heart failure) Current Visit: Yes Status: Chronic (4) Physical deconditioning Current Visit: Yes Status: Chronic (5) CKD (chronic kidney disease) stage 4, GFR 15-29 ml/min Current Visit: Yes Status: Chronic (6) Diabetes mellitus Current Visit: Yes Status: Chronic Qualifiers: Diabetes mellitus type: type 2 Diabetes mellitus alf insulin use: with terminal gauger use Diabetes mellitus complication status: with kidney complications Diabetes mellitus complication detail: with chronic kidney disease Chronic kidney disease stage: stage 4 (severe) Qualified Code(s): E11.22 - Type 2 diabetes mellitus with diabetic chronic kidney disease; N18.4 - Chronic kidney disease, stage 4 (severe); Z79.4 - 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) 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 of 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 (7) DVT prophylaxis Current Visit: Yes Status: Acute (8) Nausea and vomiting Current Visit: Yes Status: Resolved Qualifiers: Vomiting type: unspecified Vomiting Intractability: non-intractable Qualified Code(s): R11.2 - Nausea with vomiting, unspecified (9) Small bowel obstruction Current Visit: Yes Status: Resolved (10) Acute on chronic renal failure Current Visit: Yes Status: Acute Qualifiers: Acute renal failure type: unspecified Chronic kidney disease stage: stage 4 (severe) Qualified Code(s): N17.9 - Acute kidney failure, unspecified; N18.4 - Chronic kidney disease, stage 4 (severe) - Time Spent With Patient Total time spent is greater than 50% in coordination of care (as documented) at patient's floor/unit and/or counseling patient: - Constitutional Vitals: Temp Pulse Resp BP Pulse Ox 97.8 F 79 18 116/66 93 01/26/18 15:18 01/26/18 15:18 01/26/18 16:41 01/26/18 15:18 01/26/18 16:41 Internal Medicine: Result - Labs CBC & Chem 7: 01/24/18 04:34 01/26/18 05:12 Labs: BMP 01/26/18 05:12 Sodium 136 Potassium 4.0 Chloride 101 Carbon Dioxide 25 BUN 46 H Creatinine 2.40 H Glucose 208 H Calcium 9.0 - ABG Interpretation ABG results: ABG ABG pH 7.42 pH Units (7.32-7.45) 01/17/18 20:40 ABG pCO2 39 mmHg (35-45) 01/17/18 20:40 ABG pO2 70 mmHg (85-104) L 01/17/18 20:40 ABG O2 Saturation 94 % (95-98) L 01/17/18 20:40 PT/INR, D-dimer PT 16.3 Seconds (9.4-12.1) H 01/26/18 05:12 D-Dimer 1566 ng/mLFEU (0-500) H 01/17/18 20:09 - Impressions Impressions Chest X-Ray 01/26/18 13:30 IMPRESSION: Persistent small bilateral pleural effusions with adjacent atelectasis. D/ / Luz Lugo MD / Luz Lugo MD Interpreting Provider: Luz Lugo MD - Attending Attestation I examined this patient and my medical decision-making was reviewed with the Resident Physician on 01/26/18. I agree with the documented findings, disposition and treatment plan as described except to the extent set forth below. Mr Colon is currently admitted for respiratory failure due to PE. He remains moderate to high risk due to potential for worsening clinical and respiratory status. Mr Colon is feeling OK. No fever or chills. No CP at this time. Some cough. No GI issues. Exam alert. Comfortable at this time Mucus membranes dry Heart distant Lungs clear at this time Abd soft I/P 1. Respiratory failure 2. PE Further diagnoses and plan as above.
[2018-01-26] MEDS: Sennosides/Docusate Sodium TABLET PO SCH (09:37)
[2018-01-26] MEDS: Aspirin 81 MG TAB.CHEW PO SCH (09:37)
[2018-01-26] MEDS: Furosemide 40 MG TABLET PO SCH (09:38)
[2018-01-26] MEDS: Isosorbide MONOnitrate (24 HR) 30 MG TAB.ER.24H PO SCH (09:38)
[2018-01-26] MEDS: Insulin LISPRO 300 UNITS/3 ML VIAL SQ SCH ×4 (09:38→22:38)
[2018-01-26] MEDS: Cholecalciferol (D-3) 1,000 UNIT TABLET PO SCH (09:38)
[2018-01-26] MEDS: Heparin 25,000 UNIT/500 ML D5W 25,000 UNIT/500 ML BAG IVC SCH (10:04)
[2018-01-26] MEDS ORDERED: Furosemide 40 MG/4 ML VIAL IVP ONE (11:28)
[2018-01-26] MEDS ORDERED: *HR* Warfarin 5 MG TABLET PO ONE (18:00)
[2018-01-26] MEDS: Famotidine 20 MG TABLET PO SCH (22:36)
[2018-01-26] MEDS: Insulin DETEMIR 100 UNIT/ML X5UNITS SQ SCH (22:36)
[2018-01-27] MEDS: Ondansetron 4 MG/2 ML VIAL IVP PRN (00:42)
[2018-01-27] MEDS: Ipratropium/Albuterol Neb 3 ML IH SCH ×4 (04:06→22:38)
[2018-01-27] MEDS: Heparin 25,000 UNIT/500 ML D5W 25,000 UNIT/500 ML BAG IVC SCH (05:04)
[2018-01-27 05:17] LABS: INR 1.8; Prothrombin Time 19.4 Seconds (9.4-12.1)
[2018-01-27] MEDS: Aspirin 81 MG TAB.CHEW PO SCH (08:50)
[2018-01-27] MEDS: Cholecalciferol (D-3) 1,000 UNIT TABLET PO SCH (08:50)
[2018-01-27] MEDS: Furosemide 40 MG TABLET PO SCH (08:50)
[2018-01-27] MEDS: Sennosides/Docusate Sodium TABLET PO SCH (08:51)
[2018-01-27] MEDS: Isosorbide MONOnitrate (24 HR) 30 MG TAB.ER.24H PO SCH (08:51)
[2018-01-27] MEDS: Insulin LISPRO 300 UNITS/3 ML VIAL SQ SCH ×4 (08:55→23:00)
[2018-01-27 09:27] LABS: Calcium 9.4 mg/dL (8.6-10.3)
--- NOTE | 2018-01-27 10:48 | Internal Med Progress Note ---
<Martínez Stevens - Last Filed: 01/27/18 14:05> Date of Encounter: 01/27/18 Time of Encounter: 08:45 - Assessment and plan (1) Pulmonary embolism Current Visit: Yes Status: Acute Assessment and plan: V/Q with intermediate probability of PE, unable to get CTA due to history of CKD stage 4 Lower extremity ultrasound confirmed DVT in the left lower extremity Echocardiogram shows LVEF of 55-60% without right heart strain and with mild left ventricular diastolic dysfunction INR now 1.8 yesterday. Continues to need supplemental oxygen between 2-3L nasal cannula Continue to monitor INR. Plan to send to SNF once INR at goal Continue with warfarin per pharmacy dosing to goal of 2-3 Qualifiers: Pulmonary embolism type: other Chronicity: acute Acute cor pulmonale presence: without acute cor pulmonale Qualified Code(s): I26.99 - Other pulmonary embolism without acute cor pulmonale (2) Chronic diastolic CHF (congestive heart failure) Current Visit: Yes Status: Chronic Assessment and plan: History of diastolic CHF Echo with EF 55-60%, normal LV, mild concentric LVH, mild LV diastolic dysfunction, normal RV, no evidence of pulm htn, no significant valvular dysfunction CXR 01/25/18 revealed bibasilar atelectatic changes and left-sided pleural effusions. Patient given a single dose of IV Lasix yesterday, on top of his home Lasix dose Patient reports significant improvement in his ability to breathe and cough today Stable at this time (3) Acute respiratory failure with hypoxia Current Visit: Yes Status: Acute Assessment and plan: Secondary to PE with left lower extremity DVT Shortness of breath improved, but continues to need supplemental O2 with exertion INR 1.8 today Continue heparin drip while transitioning to warfarin Goal INR 2 Monitor INR (4) Physical deconditioning Current Visit: Yes Status: Chronic Assessment and plan: PT/OT evaluated, plan for discharge to [place] [facility] (5) Diabetes mellitus Current Visit: Yes Status: Chronic Assessment and plan: Blood glucose stable in 160-200 Continue with Levemir and sliding scale insulin Continue with routine glucose checks Qualifiers: Diabetes mellitus type: type 2 Diabetes mellitus superintendent terminal insulin use: with superintendent terminal use Diabetes mellitus complication status: with kidney complications Diabetes mellitus complication detail: with chronic kidney disease Chronic kidney disease stage: stage 4 (severe) Qualified Code(s): E11.22 - Type 2 diabetes mellitus with diabetic chronic kidney disease; N18.4 - Chronic kidney disease, stage 4 (severe); Z79.4 - [facility] (current) use of insulin (6) DVT prophylaxis Current Visit: Yes Status: Acute Assessment and plan: Heparin drip, transitioning to warfarin (7) Small bowel obstruction Current Visit: Yes Status: Resolved Assessment and plan: Found 01/22/18 due to n/v Resolved Advance diet as tolerated Surgery signed off (8) CKD (chronic kidney disease) stage 4, GFR 15-29 ml/min Current Visit: Yes Status: Chronic Assessment and plan: Known history of CKD Stage 4 with baseline Cr 2.1-2.2 Current creatinine 2.39 and relatively stable Avoid potentially nephrotoxic agents We will continue to monitor renal function (9) Acute on chronic renal failure Current Visit: Yes Status: Acute Assessment and plan: Cr 2.39, improved from 2.4 yesterday Baseline approximately Cr 2.1-2.2 Continue to monitor labs Encourage oral fluid intake Avoid nephrotoxic agents Qualifiers: Acute renal failure type: unspecified Chronic kidney disease stage: stage 4 (severe) Qualified Code(s): N17.9 - Acute kidney failure, unspecified; N18.4 - Chronic kidney disease, stage 4 (severe) - Time Spent With Patient Total time spent is greater than 50% in coordination of care (as documented) at patient's floor/unit and/or counseling patient: - Subjective Interval history: Patient reports having improvement in his respiratory status. He states his cough is much improved from yesterday. He denies continued feelings of posttussis nausea. He denies fever/chills, denies shortness of breath, denies chest pain, denies abdominal pain. - Constitutional Vitals: Temp Pulse Resp BP Pulse Ox 97.9 F 81 21 136/65 89 01/27/18 07:00 01/27/18 07:00 01/27/18 07:00 01/27/18 07:00 01/27/18 07:00 General appearance: Present: A&O X 3, pleasant, no acute distress, obese, answers questions appropriately Exam: General: Cooperative, pleasant, no acute distress, alert and oriented 3, answers questions appropriately HEENT: Normocephalic, atraumatic, Conjunctiva pink, sclera anicteric, oral mucosa moist Respiratory: No accessory muscle usage, good air movement, mild bibasilar Rales and wheezing Cardiovascular: Regular rate and rhythm, S1 and S2 present, no murmurs/rubs/ gallops/clicks appreciated GI/abdominal: Nondistended, nontender, soft, normal bowel sounds, no peritoneal signs Extremities: No calf tenderness, noncyanotic, no pedal edema appreciated, warm, lower extremity pulses palpable and symmetrical Neurological: Alert and oriented 3, no facial droop, no focal deficits Skin: Dry, intact, normal color Internal Medicine: Result - Labs CBC & Chem 7: 01/24/18 04:34 01/27/18 08:42 Labs: BMP 01/27/18 08:42 Sodium 140 Potassium 4.0 Chloride 102 Carbon Dioxide 25 BUN 42 H Creatinine 2.39 H Glucose 200 H Calcium 9.4 - ABG Interpretation ABG results: ABG ABG pH 7.42 pH Units (7.32-7.45) 01/17/18 20:40 ABG pCO2 39 mmHg (35-45) 01/17/18 20:40 ABG pO2 70 mmHg (85-104) L 01/17/18 20:40 ABG O2 Saturation 94 % (95-98) L 01/17/18 20:40 PT/INR, D-dimer PT 19.4 Seconds (9.4-12.1) H 01/27/18 04:39 D-Dimer 1566 ng/mLFEU (0-500) H 01/17/18 20:09 - Impressions Impressions Chest X-Ray 01/26/18 13:30 IMPRESSION: Persistent small bilateral pleural effusions with adjacent atelectasis. D/ / Luz Lugo MD / Luz Lugo MD Interpreting Provider: Luz Lugo MD Consult Discharge Plan - Plan Referrals: Lio Gold CNP [Primary Care Provider] - <Weston Celaya - Last Filed: 01/27/18 18:42> Date of Encounter: 01/27/18 - Assessment and plan (1) Acute respiratory failure with hypoxia Current Visit: Yes Status: Acute (2) Pulmonary embolism Current Visit: Yes Status: Acute Qualifiers: Pulmonary embolism type: other Chronicity: acute Acute cor pulmonale presence: without acute cor pulmonale Qualified Code(s): I26.99 - Other pulmonary embolism without acute cor pulmonale (3) Chronic diastolic CHF (congestive heart failure) Current Visit: Yes Status: Chronic (4) Physical deconditioning Current Visit: Yes Status: Chronic (5) CKD (chronic kidney disease) stage 4, GFR 15-29 ml/min Current Visit: Yes Status: Chronic (6) Diabetes mellitus Current Visit: Yes Status: Chronic Qualifiers: Diabetes mellitus type: type 2 Diabetes mellitus assisted insulin use: with superintendent terminal use Diabetes mellitus complication status: with kidney complications Diabetes mellitus complication detail: with chronic kidney disease Chronic kidney disease stage: stage 4 (severe) Qualified Code(s): E11.22 - Type 2 diabetes mellitus with diabetic chronic kidney disease; N18.4 - Chronic kidney disease, stage 4 (severe); 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 (7) DVT prophylaxis Current Visit: Yes Status: Acute (8) Small bowel obstruction Current Visit: Yes Status: Resolved (9) Acute on chronic renal failure Current Visit: Yes Status: Acute Qualifiers: Acute renal failure type: unspecified Chronic kidney disease stage: stage 4 (severe) Qualified Code(s): N17.9 - Acute kidney failure, unspecified; N18.4 - Chronic kidney disease, stage 4 (severe) - Time Spent With Patient Total time spent is greater than 50% in coordination of care (as documented) at patient's floor/unit and/or counseling patient: - Constitutional Vitals: Temp Pulse Resp BP Pulse Ox 98.9 F 72 18 108/67 90 01/27/18 15:00 01/27/18 15:00 01/27/18 16:17 01/27/18 15:00 01/27/18 16:17 Internal Medicine: Result - Labs CBC & Chem 7: 01/24/18 04:34 01/27/18 08:42 Labs: BMP 01/27/18 08:42 Sodium 140 Potassium 4.0 Chloride 102 Carbon Dioxide 25 BUN 42 H Creatinine 2.39 H Glucose 200 H Calcium 9.4 - ABG Interpretation ABG results: ABG ABG pH 7.42 pH Units (7.32-7.45) 01/17/18 20:40 ABG pCO2 39 mmHg (35-45) 01/17/18 20:40 ABG pO2 70 mmHg (85-104) L 01/17/18 20:40 ABG O2 Saturation 94 % (95-98) L 01/17/18 20:40 PT/INR, D-dimer PT 19.4 Seconds (9.4-12.1) H 01/27/18 04:39 D-Dimer 1566 ng/mLFEU (0-500) H 01/17/18 20:09 - Attending Attestation I examined this patient and my medical decision-making was reviewed with the Resident Physician on 01/27/18. I agree with the documented findings, disposition and treatment plan as described except to the extent set forth below. Mr Colon is currently admitted for acute PE. He remains moderate to high risk due to potential for worsening respiratory status. Mr Colon is doing OK. No fever or chills. INR increasing. No GI issues. Exam alert Comfortable Mucus membranes dry Heart not tachy No wheeze I/P 1. PE 2. CHF. Further diagnoses and plan as above.
[2018-01-27] MEDS ORDERED: *HR* Warfarin 5 MG TABLET PO ONE (18:00)
[2018-01-27] MEDS: Famotidine 20 MG TABLET PO SCH (22:58)
[2018-01-27] MEDS: Insulin DETEMIR 100 UNIT/ML X5UNITS SQ SCH (22:59)
[2018-01-28] MEDS: Heparin 25,000 UNIT/500 ML D5W 25,000 UNIT/500 ML BAG IVC SCH (01:04)
[2018-01-28 01:53] LABS: Calcium 9.2 mg/dL (8.6-10.3); Potassium 3.6 mEq/L (3.5-5.1)
[2018-01-28 02:59] LABS: INR 1.9; Prothrombin Time 20.3 Seconds (9.4-12.1)
[2018-01-28 03:24] LABS: Heparin anti-factor XA UFH 0.43 IU/mL (0.30-0.70)
[2018-01-28] MEDS: Ipratropium/Albuterol Neb 3 ML IH SCH ×4 (03:27→21:24)
[2018-01-28] MEDS: Insulin LISPRO 300 UNITS/3 ML VIAL SQ SCH ×4 (08:29→22:50)
--- NOTE | 2018-01-28 10:14 | Internal Med Progress Note ---
<Martínez Stevens - Last Filed: 01/28/18 11:22> Date of Encounter: 01/28/18 Time of Encounter: 08:25 - Assessment and plan (1) Chronic diastolic CHF (congestive heart failure) Current Visit: Yes Status: Chronic Assessment and plan: History of diastolic CHF Echo with EF 55-60%, normal LV, mild concentric LVH, mild LV diastolic dysfunction, normal RV, no evidence of pulm htn, no significant valvular dysfunction CXR 01/25/18 revealed bibasilar atelectatic changes and left-sided pleural effusions. Patient given a single dose of IV Lasix yesterday, on top of his home Lasix dose Patient reports significant improvement in his ability to breathe and cough today He missed a couple doses of lasix this past weekend which has left him a little fluid overloaded Will give a one-time dose of 20 mg IV lasix Stable at this time (2) Acute respiratory failure with hypoxia Current Visit: Yes Status: Acute Assessment and plan: Secondary to PE with left lower extremity DVT Shortness of breath improved, but continues to need supplemental O2 with exertion INR 1.9 today Continue heparin drip while transitioning to warfarin Goal INR 2 Monitor INR (3) Physical deconditioning Current Visit: Yes Status: Chronic Assessment and plan: PT/OT evaluated, plan for discharge to [facility] (4) Diabetes mellitus Current Visit: Yes Status: Chronic Assessment and plan: Blood glucose stable Continue with Levemir and sliding scale insulin Continue with routine glucose checks Qualifiers: Diabetes mellitus type: type 2 Diabetes mellitus custodial insulin use: with custodial use Diabetes mellitus complication status: with kidney complications Diabetes mellitus complication detail: with chronic kidney disease Chronic kidney disease stage: stage 4 (severe) Qualified Code(s): E11.22 - Type 2 diabetes mellitus with diabetic chronic kidney disease; N18.4 - Chronic kidney disease, stage 4 (severe); Z79.4 - [facility] (current) use of insulin (5) Pulmonary embolism Current Visit: Yes Status: Acute Assessment and plan: V/Q with intermediate probability of PE, unable to get CTA due to history of CKD stage 4 Lower extremity ultrasound confirmed DVT in the left lower extremity Echocardiogram shows LVEF of 55-60% without right heart strain and with mild left ventricular diastolic dysfunction INR now 1.9 yesterday. Continues to need supplemental oxygen between 2-3L nasal cannula Continue to monitor INR. Plan to send to SNF once INR at goal Continue with warfarin per pharmacy dosing to goal of 2-3 Qualifiers: Pulmonary embolism type: other Chronicity: acute Acute cor pulmonale presence: without acute cor pulmonale Qualified Code(s): I26.99 - Other pulmonary embolism without acute cor pulmonale (6) DVT prophylaxis Current Visit: Yes Status: Acute Assessment and plan: Heparin drip, transitioning to warfarin (7) Acute on chronic renal failure Current Visit: Yes Status: Acute Assessment and plan: Known history of CKD Stage 4 with baseline Cr 2.1-2.2 Current creatinine 2.64 and relatively stable Avoid potentially nephrotoxic agents We will continue to monitor renal function Qualifiers: Acute renal failure type: unspecified Chronic kidney disease stage: stage 4 (severe) Qualified Code(s): N17.9 - Acute kidney failure, unspecified; N18.4 - Chronic kidney disease, stage 4 (severe) - Time Spent With Patient Total time spent is greater than 50% in coordination of care (as documented) at patient's floor/unit and/or counseling patient: - Subjective Interval history: Patient is resting comfortably. He does state that he has had a lightly worsened cough (not productive) and mild orthopnea. He denies fever/chills, abdominal pain, chest pain, or nausea. - Constitutional Vitals: Temp Pulse Resp BP Pulse Ox 97.9 F 60 18 145/75 92 01/28/18 06:53 01/28/18 06:53 01/28/18 06:53 01/28/18 06:53 01/28/18 06:53 General appearance: Present: A&O X 3, pleasant, no acute distress, obese, answers questions appropriately Exam: General: Cooperative, pleasant, no acute distress, alert and oriented 3, answers questions appropriately HEENT: Normocephalic, atraumatic, Conjunctiva pink, sclera anicteric, oral mucosa moist Respiratory: No accessory muscle usage, good air movement, mild bibasilar Rales and wheezing Cardiovascular: Regular rate and rhythm, S1 and S2 present, no murmurs/rubs/ gallops/clicks appreciated GI/abdominal: Nondistended, nontender, soft, normal bowel sounds, no peritoneal signs Extremities: No calf tenderness, noncyanotic, no pedal edema appreciated, warm, lower extremity pulses palpable and symmetrical Neurological: Alert and oriented 3, no facial droop, no focal deficits Skin: Dry, intact, normal color Internal Medicine: Result - Labs CBC & Chem 7: 01/24/18 04:34 01/28/18 01:19 Labs: BMP 01/28/18 01:19 Sodium 138 Potassium 3.6 Chloride 99 Carbon Dioxide 27 BUN 42 H Creatinine 2.64 H Glucose 204 H Calcium 9.2 - ABG Interpretation ABG results: ABG ABG pH 7.42 pH Units (7.32-7.45) 01/17/18 20:40 ABG pCO2 39 mmHg (35-45) 01/17/18 20:40 ABG pO2 70 mmHg (85-104) L 01/17/18 20:40 ABG O2 Saturation 94 % (95-98) L 01/17/18 20:40 PT/INR, D-dimer PT 20.3 Seconds (9.4-12.1) H 01/28/18 02:47 D-Dimer 1566 ng/mLFEU (0-500) H 01/17/18 20:09 Consult Discharge Plan - Plan Referrals: Lio Gold CNP [Primary Care Provider] - <Weston Celaya - Last Filed: 01/28/18 15:56> Date of Encounter: 01/28/18 - Assessment and plan (1) Acute respiratory failure with hypoxia Current Visit: Yes Status: Acute (2) Chronic diastolic CHF (congestive heart failure) Current Visit: Yes Status: Chronic (3) Pulmonary embolism Current Visit: Yes Status: Acute Qualifiers: Pulmonary embolism type: other Chronicity: acute Acute cor pulmonale presence: without acute cor pulmonale Qualified Code(s): I26.99 - Other pulmonary embolism without acute cor pulmonale (4) Physical deconditioning Current Visit: Yes Status: Chronic (5) Diabetes mellitus Current Visit: Yes Status: Chronic Qualifiers: Diabetes mellitus type: type 2 Diabetes mellitus custodial insulin use: with terminal carman use Diabetes mellitus complication status: with kidney complications Diabetes mellitus complication detail: with chronic kidney disease Chronic kidney disease stage: stage 4 (severe) Qualified Code(s): E11.22 - Type 2 diabetes mellitus with diabetic chronic kidney disease; N18.4 - Chronic kidney disease, stage 4 (severe); 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 (6) DVT prophylaxis Current Visit: Yes Status: Acute (7) Acute on chronic renal failure Current Visit: Yes Status: Acute Qualifiers: Acute renal failure type: unspecified Chronic kidney disease stage: stage 4 (severe) Qualified Code(s): N17.9 - Acute kidney failure, unspecified; N18.4 - Chronic kidney disease, stage 4 (severe) - Time Spent With Patient Total time spent is greater than 50% in coordination of care (as documented) at patient's floor/unit and/or counseling patient: - Constitutional Vitals: Temp Pulse Resp BP Pulse Ox 97.8 F 77 16 115/65 92 01/28/18 14:37 01/28/18 14:37 01/28/18 15:27 01/28/18 14:37 01/28/18 15:27 Internal Medicine: Result - Labs CBC & Chem 7: 01/24/18 04:34 01/28/18 01:19 Labs: BMP 01/28/18 01:19 Sodium 138 Potassium 3.6 Chloride 99 Carbon Dioxide 27 BUN 42 H Creatinine 2.64 H Glucose 204 H Calcium 9.2 - ABG Interpretation ABG results: ABG ABG pH 7.42 pH Units (7.32-7.45) 01/17/18 20:40 ABG pCO2 39 mmHg (35-45) 01/17/18 20:40 ABG pO2 70 mmHg (85-104) L 01/17/18 20:40 ABG O2 Saturation 94 % (95-98) L 01/17/18 20:40 PT/INR, D-dimer PT 20.3 Seconds (9.4-12.1) H 01/28/18 02:47 D-Dimer 1566 ng/mLFEU (0-500) H 01/17/18 20:09 - Attending Attestation I examined this patient and my medical decision-making was reviewed with the Resident Physician on 01/28/18. I agree with the documented findings, disposition and treatment plan as described except to the extent set forth below. Mr Colon is currently admitted for resp failure due to PE. He remains moderate to high risk due to potential for worsening clinical and respiratory status. Mr Colon feels OK today. His appetite is somewhat better. No fever or chills. Still with some dyspnea but improving. Exam alert Comfortable Mucus membranes dry Heart distant Lungs with some scant rhonchi Abd soft I/P 1. Respiratory failure 2. PE Further diagnoses and plan as above.
[2018-01-28] MEDS: Furosemide 40 MG TABLET PO SCH (10:22)
[2018-01-28] MEDS: Isosorbide MONOnitrate (24 HR) 30 MG TAB.ER.24H PO SCH (10:22)
[2018-01-28] MEDS: Aspirin 81 MG TAB.CHEW PO SCH (10:22)
[2018-01-28] MEDS: Sennosides/Docusate Sodium TABLET PO SCH (10:22)
[2018-01-28] MEDS: Cholecalciferol (D-3) 1,000 UNIT TABLET PO SCH (10:22)
[2018-01-28] MEDS ORDERED: MOM Conc 10 ML UD.LIQ PO PRN (11:24)
[2018-01-28] MEDS: Furosemide 20 MG/2 ML VIAL IVP ONE ×2 (13:49→13:50)
[2018-01-28] MEDS: Ondansetron 4 MG/2 ML VIAL IVP PRN (17:38)
[2018-01-28] MEDS ORDERED: *HR* Warfarin 7.5 MG TABLET PO ONE (18:00)
[2018-01-28] MEDS: Famotidine 20 MG TABLET PO SCH (22:50)
[2018-01-28] MEDS: Insulin DETEMIR 100 UNIT/ML X5UNITS SQ SCH (22:51)
[2018-01-29] MEDS: Ipratropium/Albuterol Neb 3 ML IH SCH ×4 (03:31→22:28)
[2018-01-29] MEDS: Heparin 25,000 UNIT/500 ML D5W 25,000 UNIT/500 ML BAG IVC SCH (03:37)
[2018-01-29 04:32] LABS: INR 2.2; Prothrombin Time 24.3 Seconds (9.4-12.1)
[2018-01-29 04:49] LABS: Potassium 4.4 mEq/L (3.5-5.1)
[2018-01-29 04:50] LABS: Calcium 9.2 mg/dL (8.6-10.3)
--- NOTE | 2018-01-29 10:14 | Internal Med Progress Note ---
<Martínez Stevens - Last Filed: 01/29/18 10:12> Date of Encounter: 01/29/18 Time of Encounter: 08:15 - Assessment and plan (1) Pulmonary embolism Current Visit: Yes Status: Acute Assessment and plan: V/Q with intermediate probability of PE, unable to get CTA due to history of CKD stage 4 Lower extremity ultrasound confirmed DVT in the left lower extremity Echocardiogram shows LVEF of 55-60% without right heart strain and with mild left ventricular diastolic dysfunction INR now 2.2 today Continues to need supplemental oxygen between 2-3L nasal cannula Continue heparin drip while transitioning to warfarin Patient at goal INR, will maintain within therapeutic range INR If patient remains therapeutic, can stop heparin drip and discharge tomorrow Continue to Monitor INR Plan to send to SNF once INR at goal Continue with warfarin per pharmacy dosing to goal of 2-3 Qualifiers: Pulmonary embolism type: other Chronicity: acute Acute cor pulmonale presence: without acute cor pulmonale Qualified Code(s): I26.99 - Other pulmonary embolism without acute cor pulmonale (2) Chronic diastolic CHF (congestive heart failure) Current Visit: Yes Status: Chronic Assessment and plan: History of diastolic CHF Echo with EF 55-60%, normal LV, mild concentric LVH, mild LV diastolic dysfunction, normal RV, no evidence of pulm htn, no significant valvular dysfunction CXR 01/25/18 revealed bibasilar atelectatic changes and left-sided pleural effusions. Patient given a single dose of IV Lasix yesterday, on top of his home Lasix dose Patient reports mild improvement in cough and dyspnea today He missed a couple doses of lasix this past weekend which has left him a little fluid overloaded Do not suspect pneumonia at this time Continue home dose Lasix Stable at this time (3) Acute respiratory failure with hypoxia Current Visit: Yes Status: Acute Assessment and plan: Secondary to PE with left lower extremity DVT Shortness of breath improved, but continues to need supplemental O2 with exertion INR 2.2 today Continue heparin drip while transitioning to warfarin Patient at goal INR, will maintain within therapeutic range INR If patient remains therapeutic, can stop heparin drip and discharge tomorrow Monitor INR (4) Physical deconditioning Current Visit: Yes Status: Chronic Assessment and plan: PT/OT evaluated, plan for discharge to [facility] (5) Diabetes mellitus Current Visit: Yes Status: Chronic Assessment and plan: Blood glucose stable Continue with Levemir and sliding scale insulin Continue with routine glucose checks Qualifiers: Diabetes mellitus type: type 2 Diabetes mellitus ad terminal makeup operator insulin use: with ad terminal makeup operator use Diabetes mellitus complication status: with kidney complications Diabetes mellitus complication detail: with chronic kidney disease Chronic kidney disease stage: stage 4 (severe) Qualified Code(s): E11.22 - Type 2 diabetes mellitus with diabetic chronic kidney disease; N18.4 - Chronic kidney disease, stage 4 (severe); Z79.4 - custodial (current) use of insulin (6) DVT prophylaxis Current Visit: Yes Status: Acute Assessment and plan: Heparin drip, transitioning to warfarin (7) Acute on chronic renal failure Current Visit: Yes Status: Acute Assessment and plan: Known history of CKD Stage 4 with baseline Cr 2.1-2.2 Current creatinine 2.65 and stable from yesterday Avoid potentially nephrotoxic agents We will continue to monitor renal function Qualifiers: Acute renal failure type: unspecified Chronic kidney disease stage: stage 4 (severe) Qualified Code(s): N17.9 - Acute kidney failure, unspecified; N18.4 - Chronic kidney disease, stage 4 (severe) - Time Spent With Patient Total time spent is greater than 50% in coordination of care (as documented) at patient's floor/unit and/or counseling patient: - Subjective Interval history: Patient is sitting comfortably in his chair today. He denies having any fevers or chills, reports mild improvement in his cough, does not report any orthopnea. He denies any continued abdominal pain, he denies chest pain, he denies nausea. - Constitutional Vitals: Temp Pulse Resp BP Pulse Ox 97.8 F 72 14 146/72 92 01/29/18 07:31 01/29/18 07:31 01/29/18 07:31 01/29/18 07:31 01/29/18 07:31 General appearance: Present: A&O X 3, pleasant, no acute distress, obese, answers questions appropriately Exam: General: Cooperative, pleasant, no acute distress, alert and oriented 3, answers questions appropriately HEENT: Normocephalic, atraumatic, Conjunctiva pink, sclera anicteric, oral mucosa moist Respiratory: No accessory muscle usage, good air movement, mild bibasilar Rales and wheezing Cardiovascular: Regular rate and rhythm, S1 and S2 present, no murmurs/rubs/ gallops/clicks appreciated GI/abdominal: Nondistended, nontender, soft, normal bowel sounds, no peritoneal signs Extremities: No calf tenderness, no pedal edema appreciated, warm, lower extremity pulses palpable and symmetrical Neurological: Alert and oriented 3, no facial droop, no focal deficits Skin: Dry, intact, normal color Internal Medicine: Result - Labs CBC & Chem 7: 01/24/18 04:34 01/29/18 04:03 Labs: BMP 01/29/18 04:03 Sodium 139 Potassium 4.4 Chloride 100 Carbon Dioxide 26 BUN 46 H Creatinine 2.65 H Glucose 220 H Calcium 9.2 - ABG Interpretation ABG results: ABG ABG pH 7.42 pH Units (7.32-7.45) 01/17/18 20:40 ABG pCO2 39 mmHg (35-45) 01/17/18 20:40 ABG pO2 70 mmHg (85-104) L 01/17/18 20:40 ABG O2 Saturation 94 % (95-98) L 01/17/18 20:40 PT/INR, D-dimer PT 24.3 Seconds (9.4-12.1) H 01/29/18 04:03 D-Dimer 1566 ng/mLFEU (0-500) H 01/17/18 20:09 Consult Discharge Plan - Plan Referrals: Lio Gold CNP [Primary Care Provider] - <Weston Celaya - Last Filed: 01/29/18 15:57> Date of Encounter: 01/29/18 - Assessment and plan (1) Acute respiratory failure with hypoxia Current Visit: Yes Status: Acute (2) Pulmonary embolism Current Visit: Yes Status: Acute Qualifiers: Pulmonary embolism type: other Chronicity: acute Acute cor pulmonale presence: without acute cor pulmonale Qualified Code(s): I26.99 - Other pulmonary embolism without acute cor pulmonale (3) Chronic diastolic CHF (congestive heart failure) Current Visit: Yes Status: Chronic (4) Physical deconditioning Current Visit: Yes Status: Chronic (5) Diabetes mellitus Current Visit: Yes Status: Chronic Qualifiers: Diabetes mellitus type: type 2 Diabetes mellitus ad terminal makeup operator insulin use: with mcfp use Diabetes mellitus complication status: with kidney complications Diabetes mellitus complication detail: with chronic kidney disease Chronic kidney disease stage: stage 4 (severe) Qualified Code(s): E11.22 - Type 2 diabetes mellitus with diabetic chronic kidney disease; N18.4 - Chronic kidney disease, stage 4 (severe); 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 - terminal 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 (6) DVT prophylaxis Current Visit: Yes Status: Acute (7) Acute on chronic renal failure Current Visit: Yes Status: Resolved Qualifiers: Acute renal failure type: unspecified Chronic kidney disease stage: stage 4 (severe) Qualified Code(s): N17.9 - Acute kidney failure, unspecified; N18.4 - Chronic kidney disease, stage 4 (severe) - Time Spent With Patient Total time spent is greater than 50% in coordination of care (as documented) at patient's floor/unit and/or counseling patient: - Constitutional Vitals: Temp Pulse Resp BP Pulse Ox 97.8 F 78 18 131/75 92 01/29/18 15:43 01/29/18 15:43 01/29/18 15:43 01/29/18 15:43 01/29/18 15:43 Internal Medicine: Result - Labs CBC & Chem 7: 01/24/18 04:34 01/29/18 04:03 Labs: BMP 01/29/18 04:03 Sodium 139 Potassium 4.4 Chloride 100 Carbon Dioxide 26 BUN 46 H Creatinine 2.65 H Glucose 220 H Calcium 9.2 - ABG Interpretation ABG results: ABG ABG pH 7.42 pH Units (7.32-7.45) 01/17/18 20:40 ABG pCO2 39 mmHg (35-45) 01/17/18 20:40 ABG pO2 70 mmHg (85-104) L 01/17/18 20:40 ABG O2 Saturation 94 % (95-98) L 01/17/18 20:40 PT/INR, D-dimer PT 24.3 Seconds (9.4-12.1) H 01/29/18 04:03 D-Dimer 1566 ng/mLFEU (0-500) H 01/17/18 20:09 - Attending Attestation I examined this patient and my medical decision-making was reviewed with the Resident Physician on 01/29/18. I agree with the documented findings, disposition and treatment plan as described except to the extent set forth below. Mr Colon is currently admitted for acute PE. He remains moderate to high risk due to potential for worsening clinical and respiratory status. Mr Colon is feeling OK. He has a lot of upper airway congestion. No fever or chills. No GI issues. Exam alert Comfortable at rest in bed Mucus membranes dry Heart distant and not tachy Lungs with upper airway congestion Abd soft I/P 1. PE 2. Upper airway congestion - check speech eval. Further diagnoses and plan as above. INR therapeutic today. Will overlap heparin again today and anticipate d/c to SNF tomorrow.
[2018-01-29] MEDS: Isosorbide MONOnitrate (24 HR) 30 MG TAB.ER.24H PO SCH (10:25)
[2018-01-29] MEDS: Sennosides/Docusate Sodium TABLET PO SCH (10:25)
[2018-01-29] MEDS: Cholecalciferol (D-3) 1,000 UNIT TABLET PO SCH (10:25)
[2018-01-29] MEDS: Aspirin 81 MG TAB.CHEW PO SCH (10:25)
[2018-01-29] MEDS: Furosemide 40 MG TABLET PO SCH (10:25)
[2018-01-29] MEDS: Insulin LISPRO 300 UNITS/3 ML VIAL SQ SCH ×4 (10:26→21:28)
[2018-01-29] MEDS: Insulin DETEMIR 100 UNIT/ML X5UNITS SQ SCH ×2 (12:59→21:31)
--- NOTE | 2018-01-29 14:18 | Physician Discharge Referral ---
ExtendedCare Referral Info Transfer To: [facility] Provider in Charge: Dr. Celaya Provider in Charge after Transfer: PCP Institutional Level of Care: Skilled - Diagnosis (1) Acute respiratory failure with hypoxia Priority: Primary Status: Acute (2) Pulmonary embolism Priority: Secondary Status: Acute (3) CKD (chronic kidney disease) stage 4, GFR 15-29 ml/min Priority: Secondary Status: Chronic (4) Diabetes mellitus Priority: Secondary Status: Chronic (5) DVT prophylaxis Priority: Secondary Status: Acute (6) Physical deconditioning Priority: Secondary Status: Chronic Prognosis: Good Aware of Diagnosis: Patient, Family Aware of Prognosis: Patient, Family - Transfer Medications Home Medications: Allopurinol [Zyloprim] 100 mg PO DAILY 05/13/15 [History] Aspirin 81 mg PO DAILY 05/13/15 [History] Cholecalciferol (Vitamin D3) [Vitamin D3] 5,000 mg PO DAILY 05/13/15 [History] Losartan [Cozaar] 25 mg PO DAILY 05/13/15 [History] Sertraline HCl [Zoloft] 25 mg PO HS 05/13/15 [History] Simvastatin [Zocor] 20 mg PO HS 05/13/15 [History] Vitamin E 400 unit PO DAILY 05/13/15 [History] Nitroglycerin 0.4 mg SL Q5MIN PRN #10 tab.subl 05/14/15 [Rx] Levothyroxine [Synthroid] 50 mcg PO DAILY 11/29/15 [History] Ranitidine HCl [Zantac] 150 mg PO HS 12/12/15 [History] Isosorbide MONOnitrate (24 HR) [Imdur] 30 mg PO DAILY #30 tab.er.24h 04/29/16 [ Rx] Albuterol Sulfate [Albuterol Inhaler] 2 puff IH Q4H PRN 30 Days inh 10/21/16 [ Rx] Ferrous Gluconate 324 mg PO DAILY 01/12/17 [History] Sennosides/Docusate Sodium [Senna Plus] 1 tab PO DAILY 01/12/17 [History] Furosemide [Lasix] 40 mg PO DAILY #30 tablet 03/08/17 [Rx] Polyethylene Glycol 3350 [MiraLAX] 17 gm PO DAILY #7 powd.pack 11/14/17 [Rx] Fluticasone/Vilanterol [Breo Ellipta 100-25 Mcg INH] 1 puff IH DAILY 01/17/18 [ History] Insulin ASPART [NovoLOG] 20 unit SQ TID 01/17/18 [History] Linaclotide [Linzess] 290 mcg PO DAILY 01/17/18 [History] GuaiFENesin/Dextromethorphan [Robitussin/Dm] 5 ml PO Q4HR PRN udc 01/29/18 [Rx] Insulin Degludec [Tresiba Flextouch U-100] 10 unit SQ BID #0 01/29/18 [Rx] Ipratropium/Albuterol Neb [Duoneb] 3 ml IH [id number] inhsol 01/29/18 [Rx] Metoprolol [Lopressor] 25 mg PO BID tablet 01/29/18 [Rx] Warfarin [Coumadin] 6 mg PO 1800 tablet 01/29/18 [Rx] Allergies/Adverse Reactions: 3 Allergy/AdvReac Type Severity Reaction Status Date / Time morphine Allergy Rash Verified 01/12/17 20:47 - Respiratory Orders Oxygen / L per min (4L) Smoking Cessation: Smoking cessation has been advised. For more information, call the [place] Tobacco Quit Line at 5-766-HVGP-NOW. - Ancillary Orders May use pressure relief devices daily prn - Advance Directives Code Status: DNR-Arrest/Don't Intubate - Mobility Orders Chair - Rehabiliation Orders Rehab Potential: Good Rehab Orders: Sternal Precautions, ROM Exercises, Evaluation for Physical Therapy, Evaluation for Occupational Therapy - Treatments Skin tear care topically daily PRN per policy - Diet Orders No Concentrated Sweets, Cardiac CERTIFICATION: I certify that the transfer of the above named patient to an Extended Care Facility is necessary for the continuing treatment of the diagnosis listed. The above information is true and accurate reflection of patient's current condition. Confidential - Redisclosure prohibited without a patient's written consent.
[2018-01-29] MEDS ORDERED: *HR* Warfarin 7.5 MG TABLET PO ONE (18:00)
[2018-01-29] MEDS: Famotidine 20 MG TABLET PO SCH (21:06)
[2018-01-30] MEDS: Ipratropium/Albuterol Neb 3 ML IH SCH ×4 (04:06→22:31)
[2018-01-30 04:29] LABS: INR 2.9; Prothrombin Time 32.2 Seconds (9.4-12.1)
[2018-01-30 04:45] LABS: Calcium 9.5 mg/dL (8.6-10.3)
--- NOTE | 2018-01-30 07:47 | Discharge Summary ---
- NOTES TO OUTPATIENT PROVIDER Notes to Outpatient Provider: Admitted with acute PE. Developed SBO which resolved. Took a long time to become therapeutic with Coumadin. Orders not resulted at time of discharge: Pending orders 01/17/18 21:12 Occult Blood,Stool [BF] Stat 01/31/18 04:00 PT/INR [Prothrombin Time INR] [COAG] AM 0400 02/01/18 04:00 PT/INR [Prothrombin Time INR] [COAG] AM 0400 Date of Encounter: 01/31/18 Time of Encounter: 08:14 - Discharge Diagnosis (1) Acute respiratory failure with hypoxia Priority: Primary Status: Acute Assessment and Plan: Resolving. (2) Pulmonary embolism Priority: Primary Status: Acute Qualifiers: Pulmonary embolism type: other Chronicity: acute Acute cor pulmonale presence: without acute cor pulmonale Qualified Code(s): I26.99 - Other pulmonary embolism without acute cor pulmonale (3) COPD exacerbation Priority: Secondary Status: Suspected (4) Chronic diastolic CHF (congestive heart failure) Priority: Secondary Status: Chronic (5) Physical deconditioning Priority: Secondary Status: Chronic (6) Diabetes mellitus Priority: Secondary Status: Chronic Qualifiers: Diabetes mellitus type: type 2 Diabetes mellitus extermination inspector insulin use: with extermination inspector use Diabetes mellitus complication status: with kidney complications Diabetes mellitus complication detail: with chronic kidney disease Chronic kidney disease stage: stage 4 (severe) Qualified Code(s): E11.22 - Type 2 diabetes mellitus with diabetic chronic kidney disease; N18.4 - Chronic kidney disease, stage 4 (severe); 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 Colon is a 87 year old male with a hx of CHF and multiple medical problems presented to ED with progressive dyspnea. He was evaluated in ED and found to have acute PE and subsequently admitted. Mr Colon was admitted to [facility]. He was started on heparin drip. He was unable to use Lovenox due to renal function. Venous duplex performed and he was found to have L gastro DVT. Warfarin was begun. He was evaluated by PT/OT and rehab recommended. Arrangements made for [facility] bed. On 01/22 he was found to have SBO and PO meds held. He was NPO and had gradual resolution of his SBO. Surgery was following at that time. On 01/24 he was given clear liquids and tolerated this diet. His PO meds were restarted and his diet was advanced without issue. He had slow but steady increase in his INR and after 2 days of therapeutic overlap heparin was discontinued. On 01/30 he was having more issues with congestion and wheezing. Steroids were begun. Today he is breathing much better. His oxygenation is stable and he is afebrile. He is ready for discharge to [facility]. Discharge discussed with: patient - Time Spent with Patient Total time spent providing and/or coordinating discharge services: 41min - Discharge Medications Home Medications: Allopurinol [Zyloprim] 100 mg PO DAILY 05/13/15 [History] Aspirin 81 mg PO DAILY 05/13/15 [History] Cholecalciferol (Vitamin D3) [Vitamin D3] 5,000 mg PO DAILY 05/13/15 [History] Losartan [Cozaar] 25 mg PO DAILY 05/13/15 [History] Sertraline HCl [Zoloft] 25 mg PO HS 05/13/15 [History] Simvastatin [Zocor] 20 mg PO HS 05/13/15 [History] Vitamin E 400 unit PO DAILY 05/13/15 [History] Nitroglycerin 0.4 mg SL Q5MIN PRN #10 tab.subl 05/14/15 [Rx] Levothyroxine [Synthroid] 50 mcg PO DAILY 11/29/15 [History] raNITIdine HCl [Zantac] 150 mg PO HS 12/12/15 [History] Isosorbide MONOnitrate (24 HR) [Imdur] 30 mg PO DAILY #30 tab.er.24h 04/29/16 [ Rx] Albuterol Sulfate [Albuterol Inhaler] 2 puff IH Q4H PRN 30 Days inh 10/21/16 [ Rx] Ferrous Gluconate 324 mg PO DAILY 01/12/17 [History] Sennosides/Docusate Sodium [Senna Plus] 1 tab PO DAILY 01/12/17 [History] Furosemide [Lasix] 40 mg PO DAILY #30 tablet 03/08/17 [Rx] Polyethylene Glycol 3350 [MiraLAX] 17 gm PO DAILY #7 powd.pack 11/14/17 [Rx] Fluticasone/Vilanterol [Breo Ellipta 100-25 Mcg INH] 1 puff IH DAILY 01/17/18 [ History] Linaclotide [Linzess] 290 mcg PO DAILY 01/17/18 [History] GuaiFENesin/Dextromethorphan [Robitussin/Dm] 5 ml PO Q4HR PRN udc 01/29/18 [Rx] Insulin Degludec [Tresiba Flextouch U-100] 10 unit SQ BID #0 01/29/18 [Rx] Ipratropium/Albuterol Neb [Duoneb] 3 ml IH [id number] inhsol 01/29/18 [Rx] Metoprolol [Lopressor] 25 mg PO BID tablet 01/29/18 [Rx] Insulin ASPART [NovoLOG] 10 unit SQ TID #1 01/30/18 [Rx] Nystatin POWDER [Nystop] 1 appl TP BID bottle 01/31/18 [Rx] Warfarin perPT [Coumadin perPT] 1 each PO DAILY@1800 PRN each 01/31/18 [Rx] predniSONE [PredniSONE] 40 mg PO DAILY tablet 01/31/18 [Rx] Allergies/Adverse Reactions: 3 Allergy/AdvReac Type Severity Reaction Status Date / Time morphine Allergy Rash Verified 01/12/17 20:47 Date of admission: 01/17/18 19:41 Primary care physician: Lio Gold CNP Consults: 01/18/18 12:13 Consult to Occupational Therapy [CONS] Routine Comment: Evaluate, develop and implement POC Reason for Consult: Patient wants [facility]hab at discharge. Bedrest orders until therapeutic, on Hep GTT. Please check with bedside nursing. Does patient have active BEDREST order?: Yes Is patient medically & hemodynamically stable?: Yes Consult to Physical Therapy [CONS] Routine Comment: Evaluate, develop and implement POC Reason for Consult: Patient would like [facility] at discharge. Bedrest orders for today until therapeutic on Hep GTT. Please check with bedside nursing. Does patient have active BEDREST order?: Yes Is patient medically & hemodynamically stable?: Yes 01/18/18 12:20 Consult to Activities Leader [CONS] Routine Reason for SW Consult: Patient wants [facility] at discharge; was there once before. 01/22/18 13:32 Consult to Surgery [CONS] Routine Consulting Provider: Pee Urbano Reason for Consult: SBO, n/v/ x 1 day, history of quesitonable hernia repair Time Notified: 13:34 Call Completed: Yes Discharging clinician: Weston Celaya Anticipated date of discharge: 01/31/18 - Constitutional Vitals: Temp Pulse Resp BP Pulse Ox 97.8 F 72 18 146/78 94 01/30/18 06:40 01/30/18 06:40 01/30/18 06:40 01/30/18 06:40 01/30/18 06:40 General appearance: Present: A&O X 3, pleasant, obese, answers questions appropriately - Head Head exam: Present: normocephalic - Eye Eye exam: Present: conjuntiva pink - ENT ENT exam: Present: mucous membranes dry - Respiratory Respiratory exam: Present: CTAB. Absent: rales, rhonchi, wheezes Additional comments: No wheeze noted today. - Cardiovascular Cardiovascular exam: Present: RRR. Absent: tachycardia - GI/Abdominal GI/Abdominal exam: Present: distended, soft. Absent: tenderness - Extremities Exam Extremities exam: Present: warm. Absent: tenderness - Neurological Exam Neurological exam: Present: alert, oriented X3 - Skin Skin exam: Present: dry, warm - Patient Status Disposition: Transfer SNF Condition: Fair Functional capacity at discharge: independent ambulation Overall status at discharge: patient is progressing back to baseline - Discharge Instructions Follow Up With: Lio Gold CNP [Primary Care Provider] - - Diet and Activity Activity: increase activity as tolerated Diet: diabetic diet, other (Low vitamin K)
[2018-01-30] MEDS ORDERED: methylPREDNISolone 125 MG/2 ML VIAL IVP ONE (08:45)
--- NOTE | 2018-01-30 08:48 | Internal Med Progress Note ---
Date of Encounter: 01/30/18 Time of Encounter: 08:46 - Assessment and plan (1) Acute respiratory failure with hypoxia Current Visit: Yes Status: Acute Assessment and plan: Appears to have more wheezing today. Will add steroids overnight and reassess in AM>. (2) Pulmonary embolism Current Visit: Yes Status: Acute Assessment and plan: Therapeutic on Coumadin. Stop heparin today. Qualifiers: Pulmonary embolism type: other Chronicity: acute Acute cor pulmonale presence: without acute cor pulmonale Qualified Code(s): I26.99 - Other pulmonary embolism without acute cor pulmonale (3) COPD exacerbation Current Visit: No Status: Suspected Assessment and plan: Pt with more wheezing on exam today. Will add steroids and reassess in AM. (4) Chronic diastolic CHF (congestive heart failure) Current Visit: Yes Status: Chronic Assessment and plan: Appears to be volume stable and not overloaded currently. (5) Constipation Current Visit: Yes Status: Chronic Assessment and plan: Bowel regimen. Qualifiers: Constipation type: chronic idiopathic constipation Qualified Code(s): K59.04 - Chronic idiopathic constipation (6) Physical deconditioning Current Visit: Yes Status: Chronic Assessment and plan: Chronic issue (7) Diabetes mellitus Current Visit: Yes Status: Chronic Assessment and plan: Monitoring blood sugar and using insulin. Avoid nephrotoxins as able. Qualifiers: Diabetes mellitus type: type 2 Diabetes mellitus detention insulin use: with detention use Diabetes mellitus complication status: with kidney complications Diabetes mellitus complication detail: with chronic kidney disease Chronic kidney disease stage: stage 4 (severe) Qualified Code(s): E11.22 - Type 2 diabetes mellitus with diabetic chronic kidney disease; N18.4 - Chronic kidney disease, stage 4 (severe); Z79.4 - care home (current) use of insulin (8) DVT prophylaxis Current Visit: Yes Status: Acute (9) Epistaxis Current Visit: Yes Status: Acute Assessment and plan: Related to anticoagulation. Following. - Time Spent With Patient Total time spent is greater than 50% in coordination of care (as documented) at patient's floor/unit and/or counseling patient: - Subjective Interval history: Mr Colon is currently admitted for acute PE. He remains moderate to high risk due to potential for worsening clinical status. Mr Colon feels more dyspneic today. He had epistaxis this AM as well. No fever or chills. Some cough. Eating OK. - Constitutional Vitals: Temp Pulse Resp BP Pulse Ox 97.8 F 72 18 146/78 94 01/30/18 06:40 01/30/18 06:40 01/30/18 06:40 01/30/18 06:40 01/30/18 06:40 General appearance: Present: A&O X 3, pleasant, obese, answers questions appropriately - Head Head exam: Present: normocephalic - Eye Eye exam: Present: conjuntiva pink - ENT ENT exam: Present: mucous membranes dry - Respiratory Respiratory exam: Present: rhonchi, wheezes Additional comments: Diffuse end exp wheezing bilaterally. Some rhonchi. No rales. - Cardiovascular Cardiovascular exam: Present: RRR. Absent: tachycardia - GI/Abdominal GI/Abdominal exam: Present: distended, soft. Absent: tenderness - Extremities Exam Extremities exam: Present: warm. Absent: tenderness - Neurological Exam Neurological exam: Present: alert, oriented X3 - Skin Skin exam: Present: dry, warm Internal Medicine: Result - Labs CBC & Chem 7: 01/24/18 04:34 01/30/18 04:04 Labs: BMP 01/30/18 04:04 Sodium 137 Potassium 4.0 Chloride 100 Carbon Dioxide 27 BUN 41 H Creatinine 2.40 H Glucose 227 H Calcium 9.5 - ABG Interpretation ABG results: ABG ABG pH 7.42 pH Units (7.32-7.45) 01/17/18 20:40 ABG pCO2 39 mmHg (35-45) 01/17/18 20:40 ABG pO2 70 mmHg (85-104) L 01/17/18 20:40 ABG O2 Saturation 94 % (95-98) L 01/17/18 20:40 PT/INR, D-dimer PT 32.2 Seconds (9.4-12.1) H 01/30/18 04:04 D-Dimer 1566 ng/mLFEU (0-500) H 01/17/18 20:09 Consult Discharge Plan - Plan Referrals: Lio Gold CNP [Primary Care Provider] - Prescriptions: Warfarin [Coumadin] 5 mg PO 1800 #1 tablet
[2018-01-30] MEDS: Aspirin 81 MG TAB.CHEW PO SCH (09:05)
[2018-01-30] MEDS: Isosorbide MONOnitrate (24 HR) 30 MG TAB.ER.24H PO SCH (09:06)
[2018-01-30] MEDS: Furosemide 40 MG TABLET PO SCH (09:06)
[2018-01-30] MEDS: Cholecalciferol (D-3) 1,000 UNIT TABLET PO SCH (09:06)
[2018-01-30] MEDS: Sennosides/Docusate Sodium TABLET PO SCH (09:06)
[2018-01-30] MEDS: Insulin LISPRO 300 UNITS/3 ML VIAL SQ SCH ×4 (09:07→21:49)
[2018-01-30] MEDS: Insulin DETEMIR 100 UNIT/ML X5UNITS SQ SCH ×2 (09:08→21:49)
[2018-01-30] MEDS ORDERED: *HR* Warfarin 3 MG TABLET PO SCH (18:00)
[2018-01-30] MEDS: Famotidine 20 MG TABLET PO SCH (21:48)
[2018-01-31] MEDS: Ipratropium/Albuterol Neb 3 ML IH SCH ×2 (03:56→10:29)
[2018-01-31 05:21] LABS: INR 3.4; Prothrombin Time 37.7 Seconds (9.4-12.1)
[2018-01-31] MEDS: Nystatin POWDER 30 GM BOTTLE TP SCH ×2 (05:30→09:25)
[2018-01-31 06:40] VITALS: BP 147/77
[2018-01-31] MEDS ORDERED: predniSONE 20 MG TABLET PO SCH (09:00)
[2018-01-31] MEDS: Isosorbide MONOnitrate (24 HR) 30 MG TAB.ER.24H PO SCH (09:24)
[2018-01-31] MEDS: Aspirin 81 MG TAB.CHEW PO SCH (09:24)
[2018-01-31] MEDS: Furosemide 40 MG TABLET PO SCH (09:24)
[2018-01-31] MEDS: Sennosides/Docusate Sodium TABLET PO SCH (09:24)
[2018-01-31] MEDS: Cholecalciferol (D-3) 1,000 UNIT TABLET PO SCH (09:24)
[2018-01-31] MEDS: Insulin LISPRO 300 UNITS/3 ML VIAL SQ SCH (09:26)
[2018-01-31] MEDS: Insulin DETEMIR 100 UNIT/ML X5UNITS SQ SCH (09:28)
== END 2018-01-31 12:06 | DRG 175 ==
LOC: 2NENU 13:15 → EMEROO 13:15 → 2NENU 18:35 → SUATTDRO 19:41
PROVIDERS: ADMIT General Practice; ATTEND Internal Medicine

== ENCOUNTER 2018-04-24 15:13 | Inpatient (IN) ==
[2018-04-24] MEDS ORDERED: Isovue-370 500 ML INFUS..BTL IV ONE (15:32)
[2018-04-24] MEDS ORDERED: 0.9 % Sodium Chloride 1,000 ML IVC ONE (15:32)
--- NOTE | 2018-04-24 15:47 | Emergency Department Note ---
Disposition Clinical Impression: Acute kidney injury superimposed on chronic kidney disease, CKD (chronic kidney disease) stage 4, GFR 15-29 ml/min, Weakness GI bleed Qualifiers: GI bleed type/associated pathology: melena Qualified Code(s): K92.1 - Melena Disposition: Admitted As Inpatient Condition: Fair Referrals: Fani Davis [Primary Care Provider] - Forms: ED Satisfaction Letter, Work/School Release Time of Disposition: 17:36 General Adult HPI - General Chief complaint: ED Abdominal Pain Stated complaint: BLACK STOOL Time Seen by Provider: 04/24/18 15:15 Source: family Limitations: physical limitation, age Nursing Notes Reviewed: Yes Vital Signs Reviewed: Yes - History of Present Illness HPI Narrative: 87 yo male presents with a chief complaint of dark stools for 1 week. Denies abdominal pain, nausea, vomiting, diarrhea, constipation. He also has weakness for 1 month, and feel short of breath with minimal walking "like I am going to have a heart attack." Patient's son brought him in and states that he was recently discharged from home health, who was giving him therapy and when home health stopped coming to the house, he stopped doing the exercises. 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 He takes supplemental iron, but this is not a new medication. Pain Scale: 0 - Related Data Home Medications Medication Instructions Recorded Confirmed Allopurinol [Zyloprim] 100 mg PO DAILY 05/13/15 04/24/18 Aspirin 81 mg PO DAILY 05/13/15 04/24/18 Cholecalciferol (Vitamin D3) 5,000 mg PO DAILY 05/13/15 04/24/18 [Vitamin D3] Losartan [Cozaar] 25 mg PO DAILY 05/13/15 04/24/18 Sertraline HCl [Zoloft] 25 mg PO HS 05/13/15 04/24/18 Simvastatin [Zocor] 20 mg PO HS 05/13/15 04/24/18 Vitamin E 400 unit PO DAILY 05/13/15 04/24/18 Levothyroxine [Synthroid] 50 mcg PO DAILY 11/29/15 04/24/18 Ferrous Gluconate 324 mg PO DAILY 01/12/17 04/24/18 Sennosides/Docusate Sodium [Senna 1 tab PO DAILY 01/12/17 04/24/18 Plus] Fluticasone/Vilanterol [Breo 1 puff IH DAILY 01/17/18 04/24/18 Ellipta 100-25 Mcg INH] Linaclotide [Linzess] 290 mcg PO DAILY 01/17/18 04/24/18 Insulin Degludec [Tresiba 50 unit SQ DAILY 02/05/18 04/24/18 Flextouch U-100] Furosemide [Lasix] 20 mg PO DAILY 04/24/18 04/24/18 Previous Rx's Medication Instructions Recorded Isosorbide MONOnitrate (24 HR) 30 mg PO DAILY #30 tab.er.24h 04/29/16 [Imdur] Albuterol Sulfate [Albuterol 2 puff IH Q4H PRN 30 Days inh 10/21/16 Inhaler] Polyethylene Glycol 3350 [MiraLAX] 17 gm PO DAILY #7 powd.pack 11/14/17 GuaiFENesin/Dextromethorphan 5 ml PO Q4HR PRN udc 01/29/18 [Robitussin/Dm] Ipratropium/Albuterol Neb [Duoneb] 3 ml IH [id number] inhsol 01/29/18 Metoprolol [Lopressor] 25 mg PO BID tablet 01/29/18 Nystatin POWDER [Nystop] 1 appl TP BID bottle 01/31/18 Acetaminophen [Tylenol] 650 mg PO Q6HR PRN tablet 02/09/18 Famotidine [Pepcid] 20 mg PO HS tablet 02/09/18 Insulin DETEMIR [Levemir] 12 unit SQ BID [id number] 02/09/18 Nitroglycerin 0.4 mg SL Q5MIN PRN tab.subl 02/09/18 Omeprazole [PriLOSEC] 40 mg PO DAILY@0630 capsule. 02/09/18 Warfarin [Coumadin] 5 mg PO DAILY@1800 tablet 02/09/18 Allergies Allergy/AdvReac Type Severity Reaction Status Date / Time morphine Allergy Rash Verified 04/24/18 15:14 Constitutional: Reports: weakness. Denies: fever Cardiovascular: Reports: dyspnea on exertion. Denies: chest pain, palpitations Gastrointestinal: Reports: melena. Denies: abdominal pain, nausea, vomiting, diarrhea, constipation Neurological: Reports: weakness. Denies: headache Past Medical History - Past Medical History Medical history: Reports: cancer, CHF, COPD, coronary artery disease, DVT, diabetes, hyperlipidemia, hypertension, kidney stones, myocardial infarction, pulmonary embolus, renal disease, other Surgical history: Reports: cholecystectomy, herniorrhaphy, IVC Filter, other Psychiatric history: Reports: depression - Social History Smoking Status: Never smoker Smokeless Tobacco Status: No Alcohol use: Reports: none Drug use: Reports: none Physical Exam - General Limitations: physical limitation, age General appearance: alert - Head Head exam: atraumatic, normocephalic, normal inspection - Eye Eye exam: Present: normal appearance - ENT ENT exam: mucous membranes moist - Neck Neck exam: Present: normal inspection - Chest Chest inspection: Present: normal inspection, symmetric chest wall rise - Respiratory Respiratory exam: Present: normal lung sounds bilaterally - Cardiovascular Cardiovascular exam: Present: regular rate, normal rhythm, normal heart sounds - Abdominal Exam Abdominal exam: Present: soft, Non-Tender. Absent: tenderness, distention, guarding, rebound, rigidity - Rectal Exam [employer] present during exam: Yes Rectal exam: Present: normal inspection, normal rectal tone, heme (+) stool. Absent: bloody stool, fecal impaction - Extremities Exam Extremities exam: Present: normal inspection, other (posterior tibial pulses +2/ 4 bilateral) - Back Exam Back exam: Present: normal inspection - Neurological Exam Neurological exam: Present: alert - Psychiatric Psychiatric exam: Present: normal affect, normal mood - Skin Skin exam: Present: warm, dry, intact, normal color Course Vital Signs Temperature 98.0 F 04/24/18 15:13 Pulse Rate 77 04/24/18 15:13 Respiratory Rate 18 04/24/18 15:13 Blood Pressure 128/76 04/24/18 15:13 O2 Sat by Pulse Oximetry 94 04/24/18 15:13 Temperature 98.0 F 04/24/18 15:17 Pulse Rate 64 04/24/18 17:01 Respiratory Rate 18 04/24/18 17:01 Blood Pressure 144/76 04/24/18 17:01 O2 Sat by Pulse Oximetry 96 04/24/18 17:01 Oxygen Delivery Oxygen Delivery Room Air Medical Decision Making - MDM Narrative Medical decision making narrative: 87 yo male with 1 week of melena and 1 month of weakness. Occult blood positive. Hemoglobin has dropped almost 3 grams since last visit 3 months ago. Labs also significant for JAYLON on CKD stage 4. CT abdomen/pelvis shows diverticulosis and mild anasarca. CT head with no acute findings. Plan to admit patient for GI bleed. Spoke to Dr. Celaya, patient will be admitted to medicine service. - Medical Records Medical records reviewed: Yes I reviewed the patient's medical records. - Lab Data Lab results reviewed: Yes I reviewed the patient's lab results. Result diagrams: 04/24/18 15:54 04/24/18 15:54 Lab Results 04/24/18 04/24/18 04/24/18 Range/Units 15:48 15:48 15:54 WBC 7.8 (4.3-11.1) K/mcL RBC 4.05 L (4.19-5.50) M/mcL Hgb 12.7 L (12.9-16.9) g/dL Hct 38.2 (37.5-50.1) % MCV 94.3 (83.0-100.0) fL MCH 31.4 (28.0-33.3) pg MCHC 33.2 (31.6-35.5) g/dL RDW 16.1 H (11.5-14.5) % Plt Count 230 (140-400) K/mcL MPV 11.5 (9.4-12.4) fL Immature Gran % 0.5 (0-4) % Seg Neutrophils % 59.2 % Lymphocytes % 27.0 % Monocytes % 7.8 % Eosinophils % 4.5 % Basophils % 1.0 % Neutrophils # 4.6 (1.6-8.9) K/mcL Lymphocytes # 2.1 (0.6-4.6) K/mcL Monocytes # 0.6 (0.0-1.3) K/mcL Eosinophils # 0.4 (0.0-0.6) K/mcL Basophils # 0.1 (0.0-0.2) K/mcL PT (9.4-12.1) Seconds INR APTT (26.0-36.0) Seconds Sodium (136-145) mEq/L Potassium (3.5-5.1) mEq/L Chloride (98-107) mEq/L Carbon Dioxide (23-29) mEq/L BUN (8-23) mg/dL Creatinine (0.70-1.30) mg/dL Est GFR ( Amer) (> 60) Est GFR (Non-Af Amer) (> 60) BUN/Creatinine Ratio (6-26) Glucose (70-105) mg/dL Calculated Osmolality (280-300) Lactic Acid (0.5-2.2) mmol/L Calcium (8.6-10.3) mg/dL Total Bilirubin (0.3-1.0) mg/dL Direct Bilirubin (0.0-0.2) mg/dL Indirect Bilirubin (0.0-1.2) mg/dL AST (13-39) Units/L ALT (7-52) Units/L Alkaline Phosphatase (34-104) Units/L Troponin I (< 0.04) ng/mL Serum Total Protein (6.4-8.9) g/dL Albumin (3.5-5.7) g/dL Globulin (2.4-3.5) g/dL Albumin/Globulin Ratio (1.1-2.2) Lipase (11-82) Units/L Urine Color Yellow (Yellow) Urine Clarity Clear (Clear) Urine pH 5.5 (5.0-8.0) pH Units Ur Specific Sheldon 1.019 (1.010-1.025) Urine Protein Negative (Neg-Trace) mg/dL Urine Glucose (UA) 250 H (Normal) mg/dL Urine Ketones Negative (Negative) mg/dL Urine Blood Negative (Negative) Urine Nitrite Negative (Negative) Urine Bilirubin Negative (Negative) Urine Urobilinogen Normal (Normal) mg/dL Ur Leukocyte Esterase Negative (Negative) Ur Culture Indicated? NO (NO) Stool Occult Bld Scrn Positive A (Negative) Blood Type Antibody Screen 04/24/18 04/24/18 04/24/18 Range/Units 15:54 15:54 15:54 WBC (4.3-11.1) K/mcL RBC (4.19-5.50) M/mcL Hgb (12.9-16.9) g/dL Hct (37.5-50.1) % MCV (83.0-100.0) fL MCH (28.0-33.3) pg MCHC (31.6-35.5) g/dL RDW (11.5-14.5) % Plt Count (140-400) K/mcL MPV (9.4-12.4) fL Immature Gran % (0-4) % Seg Neutrophils % % Lymphocytes % % Monocytes % % Eosinophils % % Basophils % % Neutrophils # (1.6-8.9) K/mcL Lymphocytes # (0.6-4.6) K/mcL Monocytes # (0.0-1.3) K/mcL Eosinophils # (0.0-0.6) K/mcL Basophils # (0.0-0.2) K/mcL PT 23.9 H (9.4-12.1) Seconds INR 2.1 APTT 45.3 H (26.0-36.0) Seconds Sodium 139 (136-145) mEq/L Potassium 4.3 (3.5-5.1) mEq/L Chloride 103 (98-107) mEq/L Carbon Dioxide 26 (23-29) mEq/L BUN 41 H (8-23) mg/dL Creatinine 2.36 H (0.70-1.30) mg/dL Est GFR ( Amer) 32 L (> 60) Est GFR (Non-Af Amer) 26 L (> 60) BUN/Creatinine Ratio 17 (6-26) Glucose 267 H (70-105) mg/dL Calculated Osmolality 307 H (280-300) Lactic Acid 1.7 (0.5-2.2) mmol/L Calcium 9.0 (8.6-10.3) mg/dL Total Bilirubin 0.6 (0.3-1.0) mg/dL Direct Bilirubin 0.0 (0.0-0.2) mg/dL Indirect Bilirubin 0.6 (0.0-1.2) mg/dL AST 16 (13-39) Units/L ALT 16 (7-52) Units/L Alkaline Phosphatase 79 (34-104) Units/L Troponin I < 0.03 (< 0.04) ng/mL Serum Total Protein 6.5 (6.4-8.9) g/dL Albumin 3.9 (3.5-5.7) g/dL Globulin 2.6 (2.4-3.5) g/dL Albumin/Globulin Ratio 1.5 (1.1-2.2) Lipase 14 (11-82) Units/L Urine Color (Yellow) Urine Clarity (Clear) Urine pH (5.0-8.0) pH Units Ur Specific Sheldon (1.010-1.025) Urine Protein (Neg-Trace) mg/dL Urine Glucose (UA) (Normal) mg/dL Urine Ketones (Negative) mg/dL Urine Blood (Negative) Urine Nitrite (Negative) Urine Bilirubin (Negative) Urine Urobilinogen (Normal) mg/dL Ur Leukocyte Esterase (Negative) Ur Culture Indicated? (NO) Stool Occult Bld Scrn (Negative) Blood Type Antibody Screen 04/24/18 Range/Units 15:54 WBC (4.3-11.1) K/mcL RBC (4.19-5.50) M/mcL Hgb (12.9-16.9) g/dL Hct (37.5-50.1) % MCV (83.0-100.0) fL MCH (28.0-33.3) pg MCHC (31.6-35.5) g/dL RDW (11.5-14.5) % Plt Count (140-400) K/mcL MPV (9.4-12.4) fL Immature Gran % (0-4) % Seg Neutrophils % % Lymphocytes % % Monocytes % % Eosinophils % % Basophils % % Neutrophils # (1.6-8.9) K/mcL Lymphocytes # (0.6-4.6) K/mcL Monocytes # (0.0-1.3) K/mcL Eosinophils # (0.0-0.6) K/mcL Basophils # (0.0-0.2) K/mcL PT (9.4-12.1) Seconds INR APTT (26.0-36.0) Seconds Sodium (136-145) mEq/L Potassium (3.5-5.1) mEq/L Chloride (98-107) mEq/L Carbon Dioxide (23-29) mEq/L BUN (8-23) mg/dL Creatinine (0.70-1.30) mg/dL Est GFR ( Amer) (> 60) Est GFR (Non-Af Amer) (> 60) BUN/Creatinine Ratio (6-26) Glucose (70-105) mg/dL Calculated Osmolality (280-300) Lactic Acid (0.5-2.2) mmol/L Calcium (8.6-10.3) mg/dL Total Bilirubin (0.3-1.0) mg/dL Direct Bilirubin (0.0-0.2) mg/dL Indirect Bilirubin (0.0-1.2) mg/dL AST (13-39) Units/L ALT (7-52) Units/L Alkaline Phosphatase (34-104) Units/L Troponin I (< 0.04) ng/mL Serum Total Protein (6.4-8.9) g/dL Albumin (3.5-5.7) g/dL Globulin (2.4-3.5) g/dL Albumin/Globulin Ratio (1.1-2.2) Lipase (11-82) Units/L Urine Color (Yellow) Urine Clarity (Clear) Urine pH (5.0-8.0) pH Units Ur Specific Sheldon (1.010-1.025) Urine Protein (Neg-Trace) mg/dL Urine Glucose (UA) (Normal) mg/dL Urine Ketones (Negative) mg/dL Urine Blood (Negative) Urine Nitrite (Negative) Urine Bilirubin (Negative) Urine Urobilinogen (Normal) mg/dL Ur Leukocyte Esterase (Negative) Ur Culture Indicated? (NO) Stool Occult Bld Scrn (Negative) Blood Type O POSITIVE Antibody Screen NEGATIVE - Radiology Data Radiology results reviewed: Yes I reviewed the patient's radiology results. - EKG Data EKG #1 EKG attestation: Yes I reviewed and interpreted this EKG. EKG shows normal: axis, intervals, QRS complexes Rate: normal Rhythm: other (1st degree AV block) [place]/QRS: normal Heart block present: 1st Degree Q waves: v1, v2, v3
[2018-04-24 15:57] LABS: Bilirubin,Urine Negative (Negative); Blood,Urine Negative (Negative); Clarity,Urine Clear (Clear); Color,Urine Yellow (Yellow); Glucose,Urine (UA) 250 mg/dL (Normal); Ketones,Urine Negative (Negative); Leukocyte Esterase,Urine Negative (Negative); Nitrite,Urine Negative (Negative); PH,Urine 5.5 pH Units (5.0-8.0); Protein,Urine Negative (Neg-Trace); Specific Gravity,Urine 1.019 (1.010-1.025); Urobilinogen,Urine Normal (Normal)
--- NOTE | 2018-04-24 16:03 | Emergency Department Note ---
Disposition Clinical Impression: GI bleed Qualifiers: GI bleed type/associated pathology: melena Qualified Code(s): K92.1 - Melena Disposition: Admitted As Inpatient Referrals: Fani Davis [Primary Care Provider] - General Adult HPI - General Chief complaint: ED Abdominal Pain Stated complaint: BLACK STOOL Time Seen by Provider: 04/24/18 15:15 Source: family Limitations: physical limitation, age - History of Present Illness Pain Scale: 0 - Related Data Home Medications Medication Instructions Recorded Confirmed Allopurinol [Zyloprim] 100 mg PO DAILY 05/13/15 01/17/18 Aspirin 81 mg PO DAILY 05/13/15 01/17/18 Cholecalciferol (Vitamin D3) 5,000 mg PO DAILY 05/13/15 01/17/18 [Vitamin D3] Losartan [Cozaar] 25 mg PO DAILY 05/13/15 01/17/18 Sertraline HCl [Zoloft] 25 mg PO HS 05/13/15 01/17/18 Simvastatin [Zocor] 20 mg PO HS 05/13/15 01/17/18 Vitamin E 400 unit PO DAILY 05/13/15 01/17/18 Levothyroxine [Synthroid] 50 mcg PO DAILY 11/29/15 01/17/18 Ferrous Gluconate 324 mg PO DAILY 01/12/17 01/17/18 Sennosides/Docusate Sodium [Senna 1 tab PO DAILY 01/12/17 01/17/18 Plus] Fluticasone/Vilanterol [Breo 1 puff IH DAILY 01/17/18 01/17/18 Ellipta 100-25 Mcg INH] Linaclotide [Linzess] 290 mcg PO DAILY 01/17/18 01/17/18 Insulin Degludec [Tresiba 50 unit SQ DAILY 02/05/18 02/05/18 Flextouch U-100] Previous Rx's Medication Instructions Recorded Nitroglycerin 0.4 mg SL Q5MIN PRN #10 tab.subl 05/14/15 Isosorbide MONOnitrate (24 HR) 30 mg PO DAILY #30 tab.er.24h 04/29/16 [Imdur] Albuterol Sulfate [Albuterol 2 puff IH Q4H PRN 30 Days inh 10/21/16 Inhaler] Furosemide [Lasix] 40 mg PO DAILY #30 tablet 03/08/17 Polyethylene Glycol 3350 [MiraLAX] 17 gm PO DAILY #7 powd.pack 11/14/17 GuaiFENesin/Dextromethorphan 5 ml PO Q4HR PRN udc 01/29/18 [Robitussin/Dm] Ipratropium/Albuterol Neb [Duoneb] 3 ml IH [id number] inhsol 01/29/18 Metoprolol [Lopressor] 25 mg PO BID tablet 01/29/18 Nystatin POWDER [Nystop] 1 appl TP BID bottle 01/31/18 Warfarin perPT [Coumadin perPT] 1 each PO DAILY@1800 PRN each 01/31/18 predniSONE [PredniSONE] 40 mg PO DAILY tablet 01/31/18 Acetaminophen [Tylenol] 650 mg PO Q6HR PRN tablet 02/09/18 Famotidine [Pepcid] 20 mg PO HS tablet 02/09/18 Insulin DETEMIR [Levemir] 12 unit SQ BID [id number] 02/09/18 Insulin LISPRO [HumaLOG] 0 units SQ HS vial 02/09/18 Insulin LISPRO [HumaLOG] 0 units SQ TIDAC vial 02/09/18 Nitroglycerin 0.4 mg SL Q5MIN PRN tab.subl 02/09/18 Omeprazole [PriLOSEC] 40 mg PO DAILY@0630 capsule. 02/09/18 Patient Taking Own Medication 1 each PO DAILY each 02/09/18 Warfarin [Coumadin] 5 mg PO DAILY@1800 tablet 02/09/18 Allergies Allergy/AdvReac Type Severity Reaction Status Date / Time morphine Allergy Rash Verified 04/24/18 15:14 Constitutional: Reports: weakness. Denies: fever Cardiovascular: Reports: dyspnea on exertion. Denies: chest pain, palpitations Gastrointestinal: Reports: melena. Denies: abdominal pain, nausea, vomiting, diarrhea, constipation Neurological: Reports: weakness. Denies: headache Past Medical History - Past Medical History Medical history: Reports: cancer, CHF, COPD, coronary artery disease, DVT, diabetes, hyperlipidemia, hypertension, kidney stones, myocardial infarction, pulmonary embolus, renal disease, other Surgical history: Reports: cholecystectomy, herniorrhaphy, IVC Filter, other Psychiatric history: Reports: depression - Social History Smoking Status: Never smoker Smokeless Tobacco Status: No Alcohol use: Reports: none Drug use: Reports: none Physical Exam - General Limitations: physical limitation, age General appearance: alert Course Vital Signs Temperature 98.0 F 04/24/18 15:13 Pulse Rate 77 04/24/18 15:13 Respiratory Rate 18 04/24/18 15:13 Blood Pressure 128/76 04/24/18 15:13 O2 Sat by Pulse Oximetry 94 04/24/18 15:13 Temperature 98.0 F 04/24/18 15:17 Pulse Rate 77 04/24/18 15:17 Respiratory Rate 18 04/24/18 15:17 Blood Pressure 128/76 04/24/18 15:17 O2 Sat by Pulse Oximetry 94 04/24/18 15:17 Oxygen Delivery Oxygen Delivery Room Air Medical Decision Making - Lab Data Lab Results 04/24/18 Range/Units 15:48 Stool Occult Bld Scrn Positive A (Negative) Attestation Statement - Attestation Attestation: I examined this patient and my medical decision-making was reviewed with the Resident Physician. I agree with the documented findings, disposition and treatment plan as described except to the extent set forth below. 87 year old male prsent to the eD for complaits of dizziness and balck stools. He was recently put on coaumdin and his last coumadin number was 2.3 and was placed on it because of an acute PE. HE state that rcently he has been feelig weak and dizzy and then develops black stools whihc is (+) hemmoccult. Honey has had colonoscopy in the past for GI bleeds and colonic lesions but not cancer. He states there may also be a remote histroy of a gastric ulcer as well. He denies vomtiting blood. We will do GI bleed workup including a CT head and ABCT and then admit to medicine
[2018-04-24 16:10] LABS: Basophils # 0.1 K/mcL (0.0-0.2); Eosinophils # 0.4 K/mcL (0.0-0.6); Eosinophils % 4.5 %; Hematocrit 38.2 % (37.5-50.1); Hemoglobin 12.7 g/dL (12.9-16.9); Immature Granulocytes % 0.5 % (0-4); Lymphocytes # 2.1 K/mcL (0.6-4.6); Mean Corpuscular HGB Conc 33.2 g/dL (31.6-35.5); Mean Corpuscular Hemoglobin 31.4 pg (28.0-33.3); Mean Corpuscular Volume 94.3 fL (83.0-100.0); Mean Platelet Volume 11.5 fL (9.4-12.4); Monocytes # 0.6 K/mcL (0.0-1.3); Monocytes % 7.8 %; Neutrophils # 4.6 K/mcL (1.6-8.9); Platelet Count 230 K/mcL (140-400); Red Blood Count 4.05 M/mcL (4.19-5.50); Red Cell Distribution Width 16.1 % (11.5-14.5); Segmented Neutrophils % 59.2 %
[2018-04-24 16:15] LABS: INR 2.1; Prothrombin Time 23.9 Seconds (9.4-12.1)
[2018-04-24 16:18] LABS: Activated Partial Thrombo Time 45.3 Seconds (26.0-36.0)
[2018-04-24 16:30] LABS: Alanine Aminotransferase 16 Units/L (7-52); Albumin 3.9 g/dL (3.5-5.7); Albumin/Globulin Ratio 1.5 (1.1-2.2); Alkaline Phosphatase 79 Units/L (34-104); Aspartate Amino Transferase 16 Units/L (13-39); BUN/Creatinine Ratio 17 (6-26); Bilirubin,Indirect 0.6 mg/dL (0.0-1.2); Bilirubin,Total 0.6 mg/dL (0.3-1.0); Blood Urea Nitrogen 41 mg/dL (8-23); Carbon Dioxide 26 mEq/L (23-29); Chloride 103 mEq/L (98-107); Globulin 2.6 g/dL (2.4-3.5); Glucose 267 mg/dL (70-105); Lipase 14 Units/L (11-82); Osmolality,Calculated 307 (280-300); Potassium 4.3 mEq/L (3.5-5.1); Sodium 139 mEq/L (136-145); Total Protein 6.5 g/dL (6.4-8.9); Troponin I < 0.03 ng/mL (< 0.04); eGFR For Non-African Americans 26 (> 60)
[2018-04-24] MEDS ORDERED: Naloxone 0.4 MG/ML INJ IVP PRN (18:14)
[2018-04-24] MEDS ORDERED: Acetaminophen 325 MG TABLET PO PRN (18:14)
[2018-04-24] MEDS ORDERED: Nitroglycerin 0.4 MG TAB.SUBL SL PRN (18:22)
[2018-04-24] MEDS ORDERED: *HR* Dextrose 50 % in Water (Syg) 50 ML SYRINGE IVP PRN (18:42)
[2018-04-24] MEDS ORDERED: D5% in Water 1,000 ML IVC PRN (18:42)
[2018-04-24] MEDS ORDERED: Dextrose Gel 15 GM/37.5 ML TUBE PO PRN ×2 (18:42)
--- NOTE | 2018-04-24 18:55 | Internal Med History&Physical ---
<NeilrubennabilLio diaz - Last Filed: 04/24/18 19:33> Date of Encounter: 04/24/18 Time of Encounter: 18:00 Internal Medicine - H&P: HPI Chief complaint: Black stool x1 week Admitted From: Emergency Dept Plans for Post Hospital Care: Home History of present illness: Mr. Colon is a 87 year old male w/PMH of cancer, CHF, COPD, CAD, PE/DVT in January 2018, diabetes, HLD, HTN, kidney stones, previous myocardial infarction, and CKD (currently stage IV)presents from the ED with chief complaint of black stool for the past week as well as increasing shortness of breath with minimal exertion. Patient reports dizziness, weakness, and initial shortness of breath began approximately one month ago. Patient currently takes Coumadin for PE/ DVTs in January 2018. Denies hematemesis or bright blood in stool. Fecal Hemoccult positive. Patient reports a history of GI ulcers as well as diverticulosis identified during last colonoscopy. CT abdomen/pelvis shows no acute intra-abdominal process, diverticulosis without diverticulitis, severe atherosclerotic disease, and mild anasarca. Patient reports mild bilateral pedal edema and reports taking Lasix for CHF dx. Patient denies recent illness, fever, chills, nausea, vomiting, headache, changes in vision, chest pain, abdominal pain, diarrhea, constipation, numbness, tingling, pre-syncope, or syncope. Past Med Surg Social Fam HX - Past Medical History Source: patient, old records reviewed, obtained from family Medical history: cancer, CHF, COPD, coronary artery disease, DVT (January 2018 and placed on Coumadin), diabetes, hyperlipidemia, hypertension, kidney stones, myocardial infarction, pulmonary embolus (January 2018 and placed on Coumadin), renal disease, other Additional medical history: stage 4 renal failure Psychiatric history: depression - Past Surgical History Surgical History: cholecystectomy, herniorrhaphy, IVC Filter, other Additional surgical history: jose filter - Social History Smoking Status: Never smoker Smokeless Tobacco Status: No Alcohol use: none Drug use: none Current living situation: Home, With Family Activity Level: Independent ambulation, Uses cane/walker Recent Out of Country Travel Within the Last 8 Weeks: No Exposure or Possible Exposure to Illness During Travel: No - Family History Brother Race: Family Member Ethnicity: Non- Living Status: Age at : 79 Cause of : DM complications Hx Family Cardiac Disorders: Yes ([place], CAD) Hx Family Endocrine Disorder: Yes (DM) Father Race: Family Member Ethnicity: Non- Living Status: Age at : 45 Cause of : PNA Hx Family Respiratory Disorders: Yes (PNA) Mother Race: Family Member Ethnicity: Non- Living Status: Age at : 80 Cause of : [place] Hx Family Cardiac Disorders: Yes ([place], CAD) Sister Race: Family Member Ethnicity: Non- Living Status: Age at : 82 Cause of : Multiple health problems Internal Medicine - H&P: Meds Allopurinol [Zyloprim] 100 mg PO DAILY 05/13/15 [History] Aspirin 81 mg PO DAILY 05/13/15 [History] Cholecalciferol (Vitamin D3) [Vitamin D3] 5,000 mg PO DAILY 05/13/15 [History] Losartan [Cozaar] 25 mg PO DAILY 05/13/15 [History] Sertraline HCl [Zoloft] 25 mg PO HS 05/13/15 [History] Simvastatin [Zocor] 20 mg PO HS 05/13/15 [History] Vitamin E 400 unit PO DAILY 05/13/15 [History] Levothyroxine [Synthroid] 50 mcg PO DAILY 11/29/15 [History] Isosorbide MONOnitrate (24 HR) [Imdur] 30 mg PO DAILY #30 tab.er.24h 04/29/16 [ Rx] Albuterol Sulfate [Albuterol Inhaler] 2 puff IH Q4H PRN 30 Days inh 10/21/16 [ Rx] Ferrous Gluconate 324 mg PO DAILY 01/12/17 [History] Sennosides/Docusate Sodium [Senna Plus] 1 tab PO DAILY 01/12/17 [History] Polyethylene Glycol 3350 [MiraLAX] 17 gm PO DAILY #7 powd.pack 11/14/17 [Rx] Fluticasone/Vilanterol [Breo Ellipta 100-25 Mcg INH] 1 puff IH DAILY 01/17/18 [ History] Linaclotide [Linzess] 290 mcg PO DAILY 01/17/18 [History] GuaiFENesin/Dextromethorphan [Robitussin/Dm] 5 ml PO Q4HR PRN udc 01/29/18 [Rx] Ipratropium/Albuterol Neb [Duoneb] 3 ml IH [id number] inhsol 01/29/18 [Rx] Metoprolol [Lopressor] 25 mg PO BID tablet 01/29/18 [Rx] Nystatin POWDER [Nystop] 1 appl TP BID bottle 01/31/18 [Rx] Acetaminophen [Tylenol] 650 mg PO Q6HR PRN tablet 02/09/18 [Rx] Famotidine [Pepcid] 20 mg PO HS tablet 02/09/18 [Rx] Nitroglycerin 0.4 mg SL Q5MIN PRN tab.subl 02/09/18 [Rx] Omeprazole [PriLOSEC] 40 mg PO DAILY@0630 capsule.dr 02/09/18 [Rx] Warfarin [Coumadin] 5 mg PO DAILY@1800 tablet 02/09/18 [Rx] Furosemide [Lasix] 20 mg PO DAILY 04/24/18 [History] Insulin DETEMIR [Levemir] 60 units SQ HS 04/24/18 [History] 3 Allergy/AdvReac Type Severity Reaction Status Date / Time morphine Allergy Rash Verified 04/24/18 15:14 All Systems PM: A 10-system review of systems was performed and is negative for pertinent findings except as documented above in the HPI. - Constitutional Constitutional: as per HPI, fatigue, weakness, no chills, no fever(s), no night sweats - EENT Eyes: no change in vision, no discharge, no pain, no photophobia Ears: no ear discharge, no ear pain, no tinnitus Nose, mouth and throat: no dysphagia, no nasal discharge, no neck pain, no sore throat - Breasts Breasts: as per HPI - Cardiovascular Cardiovascular ROS IM: as per HPI, dyspnea, dyspnea on exertion, edema, lightheadedness, no chest pain, no diaphoresis, no palpitations, no syncope - Respiratory Respiratory: as per HPI, dyspnea, dyspnea on exertion, no cough, no wheezing, no excessive phlegm production - Gastrointestinal Gastrointestinal: as per HPI, melena, no abdominal pain, no diarrhea, no hematemesis, no hematochezia, no nausea, no vomiting - Genitourinary Genitourinary ROS male: as per HPI - Musculoskeletal Musculoskeletal ROS IM: no numbness, no tingling - Integumentary Integumentary IM: no rash, no unusual bruising - Neurological Neurological ROS: as per HPI, dizziness, weakness, no confusion, no convulsions , no focal weakness, no numbness, no tingling, no tremor(s) - Psychiatric Psychiatric: as per HPI, depression - Endocrine Endocrine IM: as per HPI - Hematologic/Lymphatic Hematologic/Lymphatic: no easy bruising - Allergic/Immunologic Allergic/Immunologic: as per HPI - Constitutional Vitals: Temp Pulse Resp BP Pulse Ox 98.0 F 64 18 138/91 96 04/24/18 15:17 04/24/18 18:00 04/24/18 18:00 04/24/18 18:00 04/24/18 18:00 General appearance: Present: cooperative, mild distress (SOB), A&O X 3, pleasant , obese, answers questions appropriately - Head Head exam: Present: atraumatic, normocephalic - Eye Eye exam: Present: PERRL, conjuntiva pink, sclera anicteric Pupils: Present: PERRL - ENT ENT exam: Present: normal exam - Neck Neck exam general surgery: Present: normal inspection, supple, trachea midline. Absent: lymphadenopathy - Respiratory Respiratory exam: Present: CTAB. Absent: accessory muscle use, rales, rhonchi, wheezes - Cardiovascular Cardiovascular exam: Present: RRR, +S1, +S2. Absent: diastolic murmur, gallop, rubs, systolic murmur - GI/Abdominal GI/Abdominal exam: Present: normal bowel sounds, soft, no peritoneal signs. Absent: distended, tenderness - Rectal Rectal exam: Present: deferred - Additional comments: exam deferred. - Extremities Exam Extremities exam: Present: pedal edema (Mild, non-pitting bilateral pedal edema) , warm, radial pulses palpable and symmetrical. Absent: calf tenderness, cyanotic - Back Exam Back exam: Present: normal inspection - Neurological Exam Neurological exam: Present: alert, CN II-XII intact, oriented X3, no focal deficits. Absent: pronater drift, facial droop, speech deficit - Psychiatric Psychiatric exam: Present: normal affect, normal mood - Skin Skin exam: Present: dry, intact Internal Med - H&P Results - Labs CBC & Chem 7: 04/24/18 15:54 04/24/18 15:54 - EKG Data EKG shows normal: sinus rhythm - EKG Data Prior EKG available for review: no Interpretation IM: suggestive of ischemia EKG comments: 04/24/18 19:01 EKG dated 04/24/18 shows sinus rhythm with first-degree AV block, low QRS voltage in precordial leads, and probable inferior myocardial infarction ( probably old). - Diagnostic Studies CT scan - abdomen Additional comments: Impressions Abdomen/Pelvis CT 04/24/18 15:59 IMPRESSION: 1. No acute intra- abdominal process identified. 2. Diverticulosis without evidence for diverticulitis. 3. Severe atherosclerotic disease. 4. Mild anasarca. D/ / Wale Ortez MD / Wale Ortez MD Interpreting Provider: Wale Ortez MD CT scan - head Additional comments: Impressions Head CT 04/24/18 15:32 IMPRESSION: No acute intracranial abnormality. D/ / Miky Butler MD / Miky Butler MD Interpreting Provider: Miky Butler MD - Assessment and plan (1) GI bleed Current Visit: Yes Status: Acute Assessment and plan: Acute GI bleed w/report of melena for approx. 1 week. Same time period for worsening SOB. Current Hgb 12.7. Pt. denies hematemesis or copious bright blood in stool. Fecal hemoccult positive. Patient reports history of GI ulcers as well as diverticulosis. Current CT of the abdomen/pelvis shows diverticulosis without diverticulitis, no acute intra-abdominal process, mild atherosclerotic disease, and mild anasarca. Patient placed on Coumadin in January 2018 for PE/ DVTs. Patient also reports weakness and dizziness with SOB and melena symptoms. Surgery consult ordered and discussed with Dr. Murphy with recommendation to hold Coumadin in place patient on bilateral SCDs. Will hold aspirin as well. Monitor H&H every 6. Monitor I&O. Nothing by mouth for now except medications. Continuous cardiac telemetry. Pt. discussed w/Dr. Gillette who agrees w/plan of care. Pt. is high risk for further morbidity and complications d/t current melena, hx of GI ulcers and diverticulosis, current drop in Hgb to 12.7 (down from values WNL), hx; and multiple health risk factors. Observation. Qualifiers: GI bleed type/associated pathology: melena Qualified Code(s): K92.1 - Melena (2) Shortness of breath Current Visit: Yes Status: Acute Assessment and plan: Acute SOB w/mild exertion for the past month that has worsened. Mild, non- pitting bilateral pedal edema on exam. Patient has history of COPD and CHF. Supplemental O2 with titration and SPO2 monitoring. Falls/safety precautions. Up with assist only. Continue pts. 20 mg PO lasix daily. Continue patient's DuoNeb's and inhalers. BNP ordered. CXR to assess for current CHF d/t SOB. Add 1.5 L daily fluid restriction if CXR indicative for CHF. (3) Weakness Current Visit: Yes Status: Acute Assessment and plan: Acute weakness for the past month accompanied by SOB. Falls/safety precautions and up with assist only. (4) CKD (chronic kidney disease) stage 4, GFR 15-29 ml/min Current Visit: Yes Status: Chronic Assessment and plan: Acute on chronic CKD. Currently stage IV with GFR of 26 and creatinine of 2.36. Patient currently takes 20 mg by mouth Lasix daily. Will continue by mouth Lasix and monitor patient's I&O and daily weight. Nephrology consult ordered and discussed with Dr. Luna and I appreciate the recommendations and consult as always. Avoid nephrotoxins. (5) CAD (coronary artery disease) Current Visit: Yes Status: Chronic Assessment and plan: Hx of chronic CAD. Continue patient's simvastatin, by mouth Lasix, Imdur, Cozaar, Lopressor. Continuous cardiac telemetry. Qualifiers: Coronary Disease-Associated Artery/Lesion type: [place] artery [place] vs. transplanted heart: [place] heart Associated angina: without angina Qualified Code(s): I25.10 - Atherosclerotic heart disease of [place] coronary artery without angina pectoris (6) COPD (chronic obstructive pulmonary disease) Current Visit: Yes Status: Chronic Assessment and plan: History of chronic COPD. Stable. Continue patient's DuoNeb's and home inhalers. Supplemental O2 with titration and SPO2 monitoring. Qualifiers: COPD type: chronic bronchitis Chronic bronchitis type: simple Qualified Code(s): J41.0 - Simple chronic bronchitis (7) Chronic diastolic CHF (congestive heart failure) Current Visit: Yes Status: Chronic Assessment and plan: Hx of chronic diastolic CHF. Patient reports shortness of breath with mild exertion. Mild pedal edema bilaterally that is non-pitting. BNP ordered. Monitor patient's I&O and daily weight. Continue patient's by mouth Lasix. (8) Diabetes Current Visit: Yes Status: Chronic Assessment and plan: Hx of chronic diabetes. Continue pts. Levemir 12 units twice a day and substitute Levemir 40 units daily for patient's Tresiba 50 units daily which is non-formulary (1:1 dosing per Pharmacy). Low-dose correction sliding scale with hypoglycemic protocol added. BG checks before meals at bedtime. A1c in a.m. labs. Qualifiers: Diabetes mellitus type: type 2 Diabetes mellitus exterminator helper insulin use: with exterminator helper use Diabetes mellitus complication status: with neurologic complications Diabetes mellitus complication detail: with polyneuropathy Qualified Code(s): E11.42 - Type 2 diabetes mellitus with diabetic polyneuropathy; Z79.4 - [facility] (current) use of insulin (9) HTN (hypertension) Current Visit: Yes Status: Chronic Assessment and plan: Hx of chronic HTN. Monitor pt. and VS. continue patient's Lopressor, Cozaar, and Imdur. Qualifiers: Hypertension type: essential hypertension Qualified Code(s): I10 - Essential (primary) hypertension (10) History of pulmonary embolus (PE) Current Visit: Yes Status: Resolved Assessment and plan: History of PE/DVTs in January 2018. IVC filter. Patient placed on Coumadin at that time. Patient on Coumadin greater than 3 months, so per Surgery will hold patient's Coumadin and use bilateral SCDs on LEs for DVT prophylaxis. (11) DVT prophylaxis Current Visit: Yes Status: Acute Assessment and plan: Bilateral SCDs on LEs for DVT prophylaxis due to current GI bleeding. (12) HLD (hyperlipidemia) Current Visit: Yes Status: Chronic Assessment and plan: Hx of chronic HLD. Lipid panel in a.m. labs. Continue patient's Zocor. Qualifiers: Hyperlipidemia type: pure hypercholesterolemia Qualified Code(s): E78.00 - Pure hypercholesterolemia, unspecified; E78.0 - Pure hypercholesterolemia - Time Spent With Patient Total time spent is greater than 50% in coordination of care (as documented) at patient's floor/unit and/or counseling patient: Greater than 35 minutes <Landon Gillette - Last Filed: 04/25/18 07:38> Date of Encounter: 04/25/18 Internal Medicine - H&P: HPI History of present illness: Mr. Colon is a 87 year old male All Systems PM: A 10-system review of systems was performed and is negative for pertinent findings except as documented above in the HPI. - Constitutional Vitals: Temp Pulse Resp BP Pulse Ox 98.5 F 70 16 131/62 91 04/25/18 06:48 04/25/18 06:48 04/25/18 06:48 04/25/18 06:48 04/25/18 06:48 Internal Med - H&P Results - Labs CBC & Chem 7: 04/25/18 00:23 04/25/18 00:23 Labs: Short CBC 04/24/18 04/25/18 Range/Units 19:15 00:23 WBC 8.2 (4.3-11.1) K/mcL Hgb 12.3 L 11.9 L (12.9-16.9) g/dL Hct 38.1 36.2 L (37.5-50.1) % Plt Count 215 (140-400) K/mcL Neutrophils # 4.5 (1.6-8.9) K/mcL BMP 04/25/18 00:23 Sodium 142 Potassium 3.6 Chloride 108 H Carbon Dioxide 23 BUN 36 H Creatinine 2.09 H Glucose 166 H Calcium 8.6 Liver Function 04/25/18 Range/Units 00:23 Total Bilirubin 0.6 (0.3-1.0) mg/dL AST 15 (13-39) Units/L ALT 13 (7-52) Units/L Alkaline Phosphatase 66 (34-104) Units/L Albumin 3.5 (3.5-5.7) g/dL - Impressions ITS Impressions Chest X-Ray 04/24/18 19:23 IMPRESSION: 1. Nonspecific bilateral pleural effusion, left greater than right with associated bibasilar relaxation atelectasis. Pneumonia is a consideration. No other findings are seen to suggest congestive heart failure. 2. Calcific atherosclerosis aorta. 3. Cardiomegaly. D/ / Melo Love / Melo Love Interpreting Provider: Melo Love - Attending Attestation I have seen the patient and performed my own history and physical examination on 04/24/18 at 18:37. I have discussed the case with the admitting RESOURCE ECONOMIST, and I agree with his assessment and plan of care as documented in his H&P. Briefly, patient [id number] for GI bleed/melena last few days. He is on coumadin since January for DVT/PE. This is first GI bleed. He has had some generalized weakness over last few months, but otherwise asymptomatic. Hgb is 12.3. We will admit for observation with NPO status, serial H/H, hold coumadin, hold aspirin, and transfuse if necessary. We will start on IV PPI. Surgery and nephrology have been consulted. We will obtain pBNP and CXR. Repeat labwork in AM. - Assessment and plan (1) CAD (coronary artery disease) Current Visit: Yes Status: Chronic Qualifiers: Coronary Disease-Associated Artery/Lesion type: [place] artery [place] vs. transplanted heart: [place] heart Associated angina: without angina Qualified Code(s): I25.10 - Atherosclerotic heart disease of [place] coronary artery without angina pectoris (2) Diabetes Current Visit: Yes Status: Chronic Qualifiers: Diabetes mellitus type: type 2 Diabetes mellitus exterminator helper insulin use: with exterminator helper use Diabetes mellitus complication status: with neurologic complications Diabetes mellitus complication detail: with polyneuropathy Qualified Code(s): E11.42 - Type 2 diabetes mellitus with diabetic polyneuropathy; Z79.4 - [facility] (current) use of insulin (3) Chronic diastolic CHF (congestive heart failure) Current Visit: Yes Status: Chronic (4) History of pulmonary embolus (PE) Current Visit: Yes Status: Resolved (5) COPD (chronic obstructive pulmonary disease) Current Visit: Yes Status: Chronic Qualifiers: COPD type: chronic bronchitis Chronic bronchitis type: simple Qualified Code(s): J41.0 - Simple chronic bronchitis (6) HTN (hypertension) Current Visit: Yes Status: Chronic Qualifiers: Hypertension type: essential hypertension Qualified Code(s): I10 - Essential (primary) hypertension (7) Weakness Current Visit: Yes Status: Acute (8) CKD (chronic kidney disease) stage 4, GFR 15-29 ml/min Current Visit: Yes Status: Chronic (9) Shortness of breath Current Visit: Yes Status: Acute (10) DVT prophylaxis Current Visit: Yes Status: Acute (11) GI bleed Current Visit: Yes Status: Acute Qualifiers: GI bleed type/associated pathology: melena Qualified Code(s): K92.1 - Melena (12) HLD (hyperlipidemia) Current Visit: Yes Status: Chronic Qualifiers: Hyperlipidemia type: pure hypercholesterolemia Qualified Code(s): E78.00 - Pure hypercholesterolemia, unspecified; E78.0 - Pure hypercholesterolemia - Time Spent With Patient Total time spent is greater than 50% in coordination of care (as documented) at patient's floor/unit and/or counseling patient:
[2018-04-24 19:40] LABS: Hematocrit 38.1 % (37.5-50.1); Hemoglobin 12.3 g/dL (12.9-16.9)
[2018-04-24] MEDS ORDERED: Nystatin POWDER 30 GM BOTTLE TP SCH (21:00)
[2018-04-24] MEDS: Insulin LISPRO 300 UNITS/3 ML VIAL SQ SCH (21:36)
[2018-04-24] MEDS: Insulin DETEMIR 100 UNIT/ML X5UNITS SQ SCH (21:44)
[2018-04-24] MEDS: Ipratropium/Albuterol Neb 3 ML IH SCH (21:46)
[2018-04-25 00:57] LABS: Basophils # 0.1 K/mcL (0.0-0.2); Basophils % 1.2 %; Eosinophils # 0.5 K/mcL (0.0-0.6); Eosinophils % 5.6 %; Hematocrit 36.2 % (37.5-50.1); Hemoglobin 11.9 g/dL (12.9-16.9); Immature Granulocytes % 0.5 % (0-4); Lymphocytes # 2.5 K/mcL (0.6-4.6); Lymphocytes % 29.9 %; Mean Corpuscular HGB Conc 32.9 g/dL (31.6-35.5); Mean Corpuscular Hemoglobin 31.1 pg (28.0-33.3); Mean Corpuscular Volume 94.5 fL (83.0-100.0); Mean Platelet Volume 11.6 fL (9.4-12.4); Monocytes # 0.7 K/mcL (0.0-1.3); Monocytes % 8.2 %; Neutrophils # 4.5 K/mcL (1.6-8.9); Platelet Count 215 K/mcL (140-400); Red Blood Count 3.83 M/mcL (4.19-5.50); Red Cell Distribution Width 16.1 % (11.5-14.5); Segmented Neutrophils % 54.6 %
[2018-04-25 01:02] LABS: Prothrombin Time 22.4 Seconds (9.4-12.1)
[2018-04-25 01:06] LABS: Activated Partial Thrombo Time 40.6 Seconds (26.0-36.0)
[2018-04-25 01:16] LABS: Albumin 3.5 g/dL (3.5-5.7); Albumin/Globulin Ratio 1.4 (1.1-2.2); Bilirubin,Total 0.6 mg/dL (0.3-1.0); Calcium 8.6 mg/dL (8.6-10.3); Chol/HDL Ratio 7.2 (0-4.9); Globulin 2.5 g/dL (2.4-3.5); Magnesium 2.1 mg/dL (1.6-2.6); Potassium 3.6 mEq/L (3.5-5.1)
[2018-04-25] MEDS: Ipratropium/Albuterol Neb 3 ML IH SCH ×4 (04:26→22:18)
[2018-04-25] MEDS: Pantoprazole 40 MG VIAL IVP SCH ×2 (05:32→17:26)
--- NOTE | 2018-04-25 08:49 | Nephrology Consult Note ---
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 I reviewed his eCW chart in detail, and see that he was lost to follow up with [facility] about 6 years ago. I recommend gentle IVF and holding his low dose oral lasix while awaiting further work up and testing for his acute on recurrent GIB. And, I a recommend updating CKD labs: iPTH, 25-OH vit D, SPEP/light chains, retroperitoneal U/S, etc. Continue to follow a renal protective strategy: dose renally cleared Rx by [facility] , avoid nephrotoxins where able, strict I/Os, daily weights. Thank you for consulting the [facility] group. Will continue to follow with you; my colleague Dr. Baca will be on-call starting tomorrow at 8am. (2) CKD (chronic kidney disease) stage 4, GFR 15-29 ml/min Current Visit: Yes Status: Chronic His baseline eGFR has progressively been trending from stage IIIb CKD into stage IV CKD. (3) Diabetic nephropathy associated with type 2 diabetes mellitus Current Visit: Yes Status: Chronic I suspect the primary underlying etiology for his CKD is diabetic nephropathy. (4) HTN (hypertension) Current Visit: Yes Status: Chronic If his SCr is worsened in the AM, then would recommend holding the ARM. Qualifiers: Hypertension type: essential hypertension Qualified Code(s): I10 - Essential (primary) hypertension (5) GI bleed Current Visit: Yes Status: Acute Sounds to be a recurrent issue, so this is an acute on chronic GIB. As per primary. H/H was not significantly low, fortunately. Qualifiers: GI bleed type/associated pathology: melena Qualified Code(s): K92.1 - Melena History of Present Illness - Reason for Consult Consult date: 04/24/18 Acute Kidney Injury, Chronic Kidney Disease Requesting physician: Weston Celaya - Chief Complaint JAYLON on CKD IIIb-IV with GIB presentation - History of Present Illness Sierra Colon is a very pleasant 87 y/o gentleman with a pmh of DM, HTN , progressive CKD stage IIIb-IV (previously seen by the prior [facility] provider Dr. Ruiz Hayes in 2012) and et al who presented with dark tarry stools and concern for a GIB. Nephrology was consulted for JAYLON on CKD stage IIIb-IV. I reviewed his eCW clinic chart and ready his PCP notes: his PCP has changed 3 times over the last few years d/t turn over at the [facility] clinic. I see that he previously saw Dr. Hayes, who left the [facility] in 2011, and the pt missed his follow up appt with Nephrology and then appears to have been lost to follow up). The pt reported feeling fine at the moment. His adult son was at bedside. The pt did not affirm F/C, dysuria or flank pains or N/V. He denied OTC NSAIDs recently. Past Med Surg Social Fam HX - Past Medical History Medical history: cancer, CHF, COPD, coronary artery disease, DVT, diabetes, hyperlipidemia, hypertension, kidney stones, myocardial infarction, pulmonary embolus, renal disease, other Additional medical history: stage 4 renal failure Psychiatric history: depression - Past Surgical History Surgical History: cholecystectomy, herniorrhaphy, IVC Filter, other Additional surgical history: jose filter - Social History Smoking Status: Never smoker Smokeless Tobacco Status: No Alcohol use: none Drug use: none - Family History Brother Race: Family Member Ethnicity: Non- Living Status: Age at : 79 Cause of : DM complications Hx Family Cardiac Disorders: Yes (ND, CAD) Hx Family Endocrine Disorder: Yes (DM) Mother Race: Family Member Ethnicity: Non- Living Status: Age at : 80 Cause of : ND Hx Family Cardiac Disorders: Yes (ND, CAD) Sister Race: Family Member Ethnicity: Non- Living Status: Age at : 82 Cause of : Multiple health problems Father Race: Family Member Ethnicity: Non- Living Status: Age at : 45 Cause of : PNA Hx Family Cardiac Disorders: No Hx Family Respiratory Disorders: Yes (PNA) Hx Family Cancer: No Hx Family GI Disorders: No Hx Family Endocrine Disorder: No Hx Family Neuromuscular Disorders: No Hx Family Neurologic Disorders: No Hx Family HEENT Disorders: No Hx Family Autoimmune Disorders: No Medications and Allergies Allopurinol [Zyloprim] 100 mg PO DAILY 05/13/15 [History] Aspirin 81 mg PO DAILY 05/13/15 [History] Cholecalciferol (Vitamin D3) [Vitamin D3] 5,000 mg PO DAILY 05/13/15 [History] Losartan [Cozaar] 25 mg PO DAILY 05/13/15 [History] Sertraline HCl [Zoloft] 25 mg PO HS 05/13/15 [History] Simvastatin [Zocor] 20 mg PO HS 05/13/15 [History] Vitamin E 400 unit PO DAILY 05/13/15 [History] Levothyroxine [Synthroid] 50 mcg PO DAILY 11/29/15 [History] Isosorbide MONOnitrate (24 HR) [Imdur] 30 mg PO DAILY #30 tab.er.24h 04/29/16 [ Rx] Albuterol Sulfate [Albuterol Inhaler] 2 puff IH Q4H PRN 30 Days inh 10/21/16 [ Rx] Ferrous Gluconate 324 mg PO DAILY 01/12/17 [History] Sennosides/Docusate Sodium [Senna Plus] 1 tab PO DAILY 01/12/17 [History] Polyethylene Glycol 3350 [MiraLAX] 17 gm PO DAILY #7 powd.pack 11/14/17 [Rx] Fluticasone/Vilanterol [Breo Ellipta 100-25 Mcg INH] 1 puff IH DAILY 01/17/18 [ History] Linaclotide [Linzess] 290 mcg PO DAILY 01/17/18 [History] GuaiFENesin/Dextromethorphan [Robitussin/Dm] 5 ml PO Q4HR PRN udc 01/29/18 [Rx] Ipratropium/Albuterol Neb [Duoneb] 3 ml IH [id number] inhsol 01/29/18 [Rx] Metoprolol [Lopressor] 25 mg PO BID tablet 01/29/18 [Rx] Nystatin POWDER [Nystop] 1 appl TP BID bottle 01/31/18 [Rx] Acetaminophen [Tylenol] 650 mg PO Q6HR PRN tablet 02/09/18 [Rx] Famotidine [Pepcid] 20 mg PO HS tablet 02/09/18 [Rx] Nitroglycerin 0.4 mg SL Q5MIN PRN tab.subl 02/09/18 [Rx] Omeprazole [PriLOSEC] 40 mg PO DAILY@0630 capsule. 02/09/18 [Rx] Warfarin [Coumadin] 5 mg PO DAILY@1800 tablet 02/09/18 [Rx] Furosemide [Lasix] 20 mg PO DAILY 04/24/18 [History] Insulin DETEMIR [Levemir] 60 units SQ HS 04/24/18 [History] 3 Allergy/AdvReac Type Severity Reaction Status Date / Time morphine Allergy Rash Verified 04/24/18 15:14 Review of Systems All Systems: reviewed and no additional remarkable complaints except as stated Exam - Vital Signs Vital signs: Initial Vital Signs Temp Pulse Resp BP Pulse Ox 98.0 F 77 18 128/76 94 04/24/18 15:13 04/24/18 15:13 04/24/18 15:13 04/24/18 15:13 04/24/18 15:13 Vital Signs - Last 8 Hours Temp Pulse Resp BP Pulse Ox 04/25/18 06:48 98.5 F 70 16 131/62 91 04/25/18 05:31 98.1 F 71 17 116/61 91 04/25/18 04:28 16 92 Intake and Output 04/24/18 04/25/18 04/25/18 23:59 07:59 15:59 Intake Total 0 / 1000 Output Total 0 / 0 250 / 250 Balance 0 / 1000 -250 / -250 Intake: Oral 0 / 0 Output: Urine 0 / 0 250 / 250 Other: # Voids 0 # Urine Diapers 0 # Bowel Movements 0 # Bowel Movement Diapers 0 Weight 110.2 kg Blood Glucose* 167 115 - General Appearance General appearance: well-nourished, appears started age EENT: ATNC, PERRL Additional Comments: Hearing aides in place. Very hard of hearing. Neck: supple Respiratory: clear Cardiology: edema (trace ankle nonpitting edema b/l), regular rate, normal S1, normal S2 Gastrointestinal: normoactive bowel sounds, no tenderness, no guarding Integumentary: no rash, warm and dry Neurologic: no focal deficit, no asterixis Musculoskeletal: no deformities, no erythema, no clubbing Psychiatric: mood/affect appropriate, cooperative Results - Lab Results 04/25/18 14:07 04/25/18 00:23 Most recent lab results Calcium 8.6 mg/dL (8.6-10.3) 04/25/18 00:23 Magnesium 2.1 mg/dL (1.6-2.6) 04/25/18 00:23 I reviewed his labs, vitals, imaging, progress notes, med lists and both [employer] and [employer] EHR systems. Consult Discharge Plan - Plan Referrals: Fani Davis [Primary Care Provider] -
[2018-04-25] MEDS ORDERED: INSULIN DEGLUDEC 50 UNIT SQ SCH (09:00)
[2018-04-25] MEDS ORDERED: Furosemide 40 MG TABLET PO SCH (09:00)
[2018-04-25 09:09] LABS: Hematocrit 36.1 % (37.5-50.1); Hemoglobin 11.6 g/dL (12.9-16.9)
[2018-04-25] MEDS: Insulin LISPRO 300 UNITS/3 ML VIAL SQ SCH ×4 (10:01→21:44)
[2018-04-25] MEDS: BETAMETHASONE DIPROPIONATE TP SCH ×2 (10:25→21:47)
--- NOTE | 2018-04-25 10:31 | General Surgery Consult Note ---
<Fabi Najera E - Last Filed: 04/25/18 10:26> Date of Encounter: 04/25/18 Time of Encounter: 10:26 Assessment and Plan (1) Melena Current Visit: Yes Status: Acute Plan for colonoscopy and endoscopy tomorrow Clear liquid diet today Nothing by mouth at midnight Supportive care MiraLAX bowel prep today History of Present Illness Consult date: 04/25/18 Reason for consult: other (Dark stools, stool hemmocult positive) Requesting physician: Lio Rob History of present illness: Mr. Colon is an 87 male who presented to the ED with a 4-5 day history of dark tarry stools. He was also feeling very weak so his son insisted that he come in. He has had multiple colonoscopies, some polyps removed, a history of ulcers , his last colonoscopy was 3-4 years ago. He denies any abdominal pain, nausea , vomiting, diarrhea. He says his stools are solid and dark, no red blood that he has seen. He has a history of CHF, COPD, CAD, DVT (see January 2018), DM, hyperlipidemia, hypertension, kidney stones, PE (January 2018), stage IV renal failure. He currently takes Coumadin for his PE/DVTs January 2018. He had a positive fecal occult blood in the ED. He does have a surgical history of prescribed cholecystectomy and inguinal hernia repair. Past Med Surg Social Fam HX - Past Medical History Medical history: cancer, CHF, COPD, coronary artery disease, DVT, diabetes, hyperlipidemia, hypertension, kidney stones, myocardial infarction, pulmonary embolus, renal disease, other Additional medical history: stage 4 renal failure Psychiatric history: depression - Past Surgical History Surgical History: cholecystectomy, herniorrhaphy, IVC Filter, other Additional surgical history: jose filter - Social History Smoking Status: Never smoker Smokeless Tobacco Status: No Alcohol use: none Drug use: none - Family History Brother Race: Family Member Ethnicity: Non- Living Status: Age at : 79 Cause of : DM complications Hx Family Cardiac Disorders: Yes (CO, CAD) Hx Family Endocrine Disorder: Yes (DM) Mother Race: Family Member Ethnicity: Non- Living Status: Age at : 80 Cause of : CO Hx Family Cardiac Disorders: Yes (CO, CAD) Sister Race: Family Member Ethnicity: Non- Living Status: Age at : 82 Cause of : Multiple health problems Father Race: Family Member Ethnicity: Non- Living Status: Age at : 45 Cause of : PNA Hx Family Cardiac Disorders: No Hx Family Respiratory Disorders: Yes (PNA) Hx Family Cancer: No Hx Family GI Disorders: No Hx Family Endocrine Disorder: No Hx Family Neuromuscular Disorders: No Hx Family Neurologic Disorders: No Hx Family HEENT Disorders: No Hx Family Autoimmune Disorders: No Medications and Allergies Allopurinol [Zyloprim] 100 mg PO DAILY 05/13/15 [History] Aspirin 81 mg PO DAILY 05/13/15 [History] Cholecalciferol (Vitamin D3) [Vitamin D3] 5,000 mg PO DAILY 05/13/15 [History] Losartan [Cozaar] 25 mg PO DAILY 05/13/15 [History] Sertraline HCl [Zoloft] 25 mg PO HS 05/13/15 [History] Simvastatin [Zocor] 20 mg PO HS 05/13/15 [History] Vitamin E 400 unit PO DAILY 05/13/15 [History] Levothyroxine [Synthroid] 50 mcg PO DAILY 11/29/15 [History] Isosorbide MONOnitrate (24 HR) [Imdur] 30 mg PO DAILY #30 tab.er.24h 04/29/16 [ Rx] Albuterol Sulfate [Albuterol Inhaler] 2 puff IH Q4H PRN 30 Days inh 10/21/16 [ Rx] Ferrous Gluconate 324 mg PO DAILY 01/12/17 [History] Sennosides/Docusate Sodium [Senna Plus] 1 tab PO DAILY 01/12/17 [History] Polyethylene Glycol 3350 [MiraLAX] 17 gm PO DAILY #7 powd.pack 11/14/17 [Rx] Fluticasone/Vilanterol [Breo Ellipta 100-25 Mcg INH] 1 puff IH DAILY 01/17/18 [ History] Linaclotide [Linzess] 290 mcg PO DAILY 01/17/18 [History] GuaiFENesin/Dextromethorphan [Robitussin/Dm] 5 ml PO Q4HR PRN udc 01/29/18 [Rx] Ipratropium/Albuterol Neb [Duoneb] 3 ml IH [id number] inhsol 01/29/18 [Rx] Metoprolol [Lopressor] 25 mg PO BID tablet 01/29/18 [Rx] Nystatin POWDER [Nystop] 1 appl TP BID bottle 01/31/18 [Rx] Acetaminophen [Tylenol] 650 mg PO Q6HR PRN tablet 02/09/18 [Rx] Famotidine [Pepcid] 20 mg PO HS tablet 02/09/18 [Rx] Nitroglycerin 0.4 mg SL Q5MIN PRN tab.subl 02/09/18 [Rx] Omeprazole [PriLOSEC] 40 mg PO DAILY@0630 capsule. 02/09/18 [Rx] Warfarin [Coumadin] 5 mg PO DAILY@1800 tablet 02/09/18 [Rx] Furosemide [Lasix] 20 mg PO DAILY 04/24/18 [History] Insulin DETEMIR [Levemir] 60 units SQ HS 04/24/18 [History] 3 Allergy/AdvReac Type Severity Reaction Status Date / Time morphine Allergy Rash Verified 04/24/18 15:14 Review of Systems All systems PM: The remainder of the systems were reviewed and are negative - Constitutional no fatigue, no increased appetite, no weight loss - Cardiovascular no chest pain, no irregular heart rhythm, no radiating jaw, neck or arm pain - Respiratory dyspnea on exertion (This is new within the last few weeks.), no cough - Gastrointestinal other (Black tarry stools for the last 4-5 days), no abdominal pain, no change in bowel habits, no nausea General Surgery Exam Initial Vital Signs Temp Pulse Resp BP Pulse Ox 98.0 F 77 18 128/76 94 04/24/18 15:13 04/24/18 15:13 04/24/18 15:13 04/24/18 15:13 04/24/18 15:13 - General physical appearance well developed, well nourished, no distress - Respiratory normal expansion, normal respiratory effort, clear to auscultation - Cardiovascular Cardiovascular exam: Present: RRR, no murmurs/rubs/gallops - Abdomen Abdomen general surgery: Present: bowel sounds present, soft, non tender - Integumentary Integumentary general surgery: Present: warm and dry, no abnormal pigmentation - Musculoskeletal Present: normal posture - Psychiatric Psychiatric general surgery: Present: oriented to person, oriented to place, oriented to time Exam Initial Vital Signs Temp Pulse Resp BP Pulse Ox 98.0 F 77 18 128/76 94 04/24/18 15:13 04/24/18 15:13 04/24/18 15:13 04/24/18 15:13 04/24/18 15:13 Results - Labs 04/25/18 08:36 08 00:23 Abnormal lab results RBC 3.83 M/mcL (4.19-5.50) L 04/25/18 00:23 Hgb 11.6 g/dL (12.9-16.9) L 04/25/18 08:36 Hct 36.1 % (37.5-50.1) L 04/25/18 08:36 RDW 16.1 % (11.5-14.5) H 04/25/18 00:23 PT 22.4 Seconds (9.4-12.1) H 04/25/18 00:23 APTT 40.6 Seconds (26.0-36.0) H 04/25/18 00:23 Chloride 108 mEq/L (98-107) H 04/25/18 00:23 BUN 36 mg/dL (8-23) H 04/25/18 00:23 Creatinine 2.09 mg/dL (0.70-1.30) H 04/25/18 00:23 Est GFR ( Amer) 37 (> 60) L 04/25/18 00:23 Est GFR (Non-Af Amer) 30 (> 60) L 04/25/18 00:23 Glucose 166 mg/dL (70-105) H 04/25/18 00:23 POC Glucose 115 mg/dL (70-99) H 04/25/18 05:39 Calculated Osmolality 306 (280-300) H 04/25/18 00:23 Serum Total Protein 6.0 g/dL (6.4-8.9) L 04/25/18 00:23 Triglycerides 351 mg/dL (< 150) H 04/25/18 00:23 VLDL Cholesterol, Calc 70 mg/dL (< 31) H 04/25/18 00:23 HDL Cholesterol 24 mg/dL (40-59) L 04/25/18 00:23 Cholesterol/HDL Ratio 7.2 (0-4.9) H 04/25/18 00:23 Urine Glucose (UA) 250 mg/dL (Normal) H 04/24/18 15:48 Stool Occult Bld Scrn Positive (Negative) A 04/24/18 15:48 Diabetes panel 04/25/18 Range/Units 00:23 Sodium 142 (136-145) mEq/L Potassium 3.6 (3.5-5.1) mEq/L Chloride 108 H (98-107) mEq/L Carbon Dioxide 23 (23-29) mEq/L BUN 36 H (8-23) mg/dL Creatinine 2.09 H (0.70-1.30) mg/dL Glucose 166 H (70-105) mg/dL Calcium 8.6 (8.6-10.3) mg/dL AST 15 (13-39) Units/L ALT 13 (7-52) Units/L Alkaline Phosphatase 66 (34-104) Units/L Albumin 3.5 (3.5-5.7) g/dL Triglycerides 351 H (< 150) mg/dL HDL Cholesterol 24 L (40-59) mg/dL Calcium panel 04/25/18 Range/Units 00:23 Calcium 8.6 (8.6-10.3) mg/dL Albumin 3.5 (3.5-5.7) g/dL Pituitary panel 04/25/18 Range/Units 00:23 Sodium 142 (136-145) mEq/L Potassium 3.6 (3.5-5.1) mEq/L Chloride 108 H (98-107) mEq/L Carbon Dioxide 23 (23-29) mEq/L BUN 36 H (8-23) mg/dL Creatinine 2.09 H (0.70-1.30) mg/dL Glucose 166 H (70-105) mg/dL Calcium 8.6 (8.6-10.3) mg/dL Adrenal panel 04/25/18 Range/Units 00:23 Sodium 142 (136-145) mEq/L Potassium 3.6 (3.5-5.1) mEq/L Chloride 108 H (98-107) mEq/L Carbon Dioxide 23 (23-29) mEq/L BUN 36 H (8-23) mg/dL Creatinine 2.09 H (0.70-1.30) mg/dL Glucose 166 H (70-105) mg/dL Calcium 8.6 (8.6-10.3) mg/dL Total Bilirubin 0.6 (0.3-1.0) mg/dL AST 15 (13-39) Units/L ALT 13 (7-52) Units/L Alkaline Phosphatase 66 (34-104) Units/L Albumin 3.5 (3.5-5.7) g/dL All other labs normal. Consult Discharge Plan - Plan Referrals: Fani Davis [Primary Care Provider] - <Jany Murphy - Last Filed: 04/25/18 18:56> Date of Encounter: 04/25/18 Assessment and Plan (1) Melena Current Visit: Yes Status: Acute discussed with patient given his history of ulcers and previous polyps and now with a week of melena and anemia we will plan egd/colonoscopy with anesthesia, risks and benefits discussed and he wishes to proceed clears today bowel prep today npo midnight History of Present Illness History of present illness: Patient is 87 yo male who is seen with his son present. Son states last endoscopy was 3-4 years ago and believes polyps were found. No [facility] colon or rectal cancer. Patient denies abdominal pain, nausea or emesis. No recent weight loss. He has been having shortness of breath with exertion/walkking for about a week now. He has been having black stools for one week. No diarrhea or constipation. He states he has had ulcers in the past but unsure if gastric or duodenal. He currently does not take gerd therapy and denies gerd symptoms. He denies dysphagia. Past Med Surg Social Fam HX - Past Medical History Source: patient Review of Systems All systems PM: reviewed and no additional remarkable complaints except as stated All systems PM: The remainder of the systems were reviewed and are negative General Surgery Exam Initial Vital Signs Temp Pulse Resp BP Pulse Ox 98.0 F 77 18 128/76 94 04/24/18 15:13 04/24/18 15:13 04/24/18 15:13 04/24/18 15:13 04/24/18 15:13 - General physical appearance well developed, well nourished, no distress, obese - Eyes PERRL, normal ocular movement - ENT normal mucosa, normocephalic - Neck trachea midline - Respiratory normal expansion, clear to auscultation - Abdomen Abdomen general surgery: Present: bowel sounds present, soft, non tender. Absent: distended, guarding, rebound - Integumentary Integumentary general surgery: Present: warm and dry, no abnormal pigmentation - Neurologic Present: CN 2-12 grossly intact - Musculoskeletal Present: normal posture - Psychiatric Psychiatric general surgery: Present: A&Ox3, oriented to time Exam Initial Vital Signs Temp Pulse Resp BP Pulse Ox 98.0 F 77 18 128/76 94 04/24/18 15:13 04/24/18 15:13 04/24/18 15:13 04/24/18 15:13 04/24/18 15:13 Results - Labs 04/25/18 14:07 04/25/18 00:23 Abnormal lab results RBC 3.83 M/mcL (4.19-5.50) L 04/25/18 00:23 Hgb 10.8 g/dL (12.9-16.9) L 04/25/18 14:07 Hct 33.6 % (37.5-50.1) L 04/25/18 14:07 RDW 16.1 % (11.5-14.5) H 04/25/18 00:23 PT 22.4 Seconds (9.4-12.1) H 04/25/18 00:23 APTT 40.6 Seconds (26.0-36.0) H 04/25/18 00:23 Chloride 108 mEq/L (98-107) H 04/25/18 00:23 BUN 36 mg/dL (8-23) H 04/25/18 00:23 Creatinine 2.09 mg/dL (0.70-1.30) H 04/25/18 00:23 Est GFR ( Amer) 37 (> 60) L 04/25/18 00:23 Est GFR (Non-Af Amer) 30 (> 60) L 04/25/18 00:23 Glucose 166 mg/dL (70-105) H 04/25/18 00:23 Calculated Osmolality 306 (280-300) H 04/25/18 00:23 Serum Total Protein 6.0 g/dL (6.4-8.9) L 04/25/18 00:23 Triglycerides 351 mg/dL (< 150) H 04/25/18 00:23 VLDL Cholesterol, Calc 70 mg/dL (< 31) H 04/25/18 00:23 HDL Cholesterol 24 mg/dL (40-59) L 04/25/18 00:23 Cholesterol/HDL Ratio 7.2 (0-4.9) H 04/25/18 00:23 Urine Glucose (UA) 250 mg/dL (Normal) H 04/24/18 15:48 Stool Occult Bld Scrn Positive (Negative) A 04/24/18 15:48 Diabetes panel 04/25/18 Range/Units 00:23 Sodium 142 (136-145) mEq/L Potassium 3.6 (3.5-5.1) mEq/L Chloride 108 H (98-107) mEq/L Carbon Dioxide 23 (23-29) mEq/L BUN 36 H (8-23) mg/dL Creatinine 2.09 H (0.70-1.30) mg/dL Glucose 166 H (70-105) mg/dL Calcium 8.6 (8.6-10.3) mg/dL AST 15 (13-39) Units/L ALT 13 (7-52) Units/L Alkaline Phosphatase 66 (34-104) Units/L Albumin 3.5 (3.5-5.7) g/dL Triglycerides 351 H (< 150) mg/dL HDL Cholesterol 24 L (40-59) mg/dL Calcium panel 04/25/18 Range/Units 00:23 Calcium 8.6 (8.6-10.3) mg/dL Albumin 3.5 (3.5-5.7) g/dL Pituitary panel 04/25/18 Range/Units 00:23 Sodium 142 (136-145) mEq/L Potassium 3.6 (3.5-5.1) mEq/L Chloride 108 H (98-107) mEq/L Carbon Dioxide 23 (23-29) mEq/L BUN 36 H (8-23) mg/dL Creatinine 2.09 H (0.70-1.30) mg/dL Glucose 166 H (70-105) mg/dL Calcium 8.6 (8.6-10.3) mg/dL Adrenal panel 04/25/18 Range/Units 00:23 Sodium 142 (136-145) mEq/L Potassium 3.6 (3.5-5.1) mEq/L Chloride 108 H (98-107) mEq/L Carbon Dioxide 23 (23-29) mEq/L BUN 36 H (8-23) mg/dL Creatinine 2.09 H (0.70-1.30) mg/dL Glucose 166 H (70-105) mg/dL Calcium 8.6 (8.6-10.3) mg/dL Total Bilirubin 0.6 (0.3-1.0) mg/dL AST 15 (13-39) Units/L ALT 13 (7-52) Units/L Alkaline Phosphatase 66 (34-104) Units/L Albumin 3.5 (3.5-5.7) g/dL All other labs normal. - Attending Attestation I examined this patient and my medical decision-making was reviewed with the Resident Physician. I agree with the documented findings, disposition and treatment plan as described except to the extent set forth below.
[2018-04-25] MEDS: Sennosides/Docusate Sodium TABLET PO SCH (10:48)
[2018-04-25] MEDS: Isosorbide MONOnitrate (24 HR) 30 MG TAB.ER.24H PO SCH (10:49)
[2018-04-25] MEDS: (Fluticasone/Vilanterol [Breo Ellipta 100-25 Mcg Inh]) IH SCH (10:49)
[2018-04-25] MEDS: Cholecalciferol (D-3) 1,000 UNIT TABLET PO SCH (10:49)
[2018-04-25] MEDS ORDERED: Polyethylene Glycol 3350 255 GM POWDER PO ONE (11:30)
--- NOTE | 2018-04-25 13:48 | Internal Med Progress Note ---
Hospitalist Progress Note - Encounter Date of Encounter: 04/25/18 Time of Encounter: 09:00 - Subjective Interval History: Patient examined at bedside today. Reports that he slept well last night. Denies abdominal cramping, nausea, or vomiting. States he is hungry. Was NPO on admission but Surgery okay to start clears w/NPO @ midnight for EGD and colonoscopy. Pts. son present during exam and states that pt. is comfortable and has no complaints at this time. - Exam Vitals: Temp Pulse Resp BP Pulse Ox 97.7 F 56 16 128/69 96 04/25/18 11:22 04/25/18 11:22 04/25/18 11:22 04/25/18 11:22 04/25/18 11:22 Exam: PHYSICAL EXAMINIATION: GENERAL: Alert, no acute distress, cooperative, A&O x3 NECK: No jugulovenous distention, No carotid bruits, Carotid pulse normal contour, Supple LUNGS: Lungs clear to auscultation, Good diaphragmatic excursion CARDIAC: Normal S1 and S2; no rubs, murmurs, or gallops ABDOMEN: Abdomen soft, non-tender, BS normal, No masses or organomegaly EXTREMITIES: Extremities normal, no deformities, edema, clubbing or skin discoloration. Good capillary refill., No ulcers PSYCHIATRIC: Normal mood and affect SKIN: Dry and intact - Assessment and Plan (1) GI bleed Current Visit: Yes Status: Acute Assessment and Plan: Acute GI bleed w/report of melena for approx. 1 week. Same time period for worsening SOB. Current Hgb 12.7. Pt. denies hematemesis or copious bright blood in stool. Fecal hemoccult positive. Patient reports history of GI ulcers as well as diverticulosis. Current CT of the abdomen/pelvis shows diverticulosis without diverticulitis, no acute intra-abdominal process, mild atherosclerotic disease, and mild anasarca. Patient placed on Coumadin in January 2018 for PE/ DVTs. Patient also reports weakness and dizziness with SOB and melena symptoms. Surgery recommendation to hold Coumadin in place patient on bilateral SCDs. Will hold aspirin as well. Monitor H&H every 6. Monitor I&O. Surgery recommends starting clears w/NPO @ midnight for upper and lower in a.m. Continuous cardiac telemetry. (2) Shortness of breath Current Visit: Yes Status: Acute Assessment and Plan: Acute SOB w/mild exertion for the past month that has worsened. Mild, non- pitting bilateral pedal edema on exam. Patient has history of COPD and CHF. Supplemental O2 with titration and SPO2 monitoring. Falls/safety precautions. Up with assist only. Continue pts. 20 mg PO lasix daily. Continue patient's DuoNeb's and inhalers. BNP 42. CXR shows nonspecific bilateral pleural effusion with left greater than right and associated bibasilar relaxation atelectasis. Pneumonia is a consideration. No other findings are seen to suggest CHF. WBC 8.2 and pt. asymptomatic for infection. Reports cough so Mucinex PO ordered. (3) Weakness Current Visit: Yes Status: Acute Assessment and Plan: Acute weakness for the past month accompanied by SOB. Falls/safety precautions and up with assist only. (4) CKD (chronic kidney disease) stage 4, GFR 15-29 ml/min Current Visit: Yes Status: Chronic Assessment and Plan: Acute on chronic CKD. Currently stage IV. GFR improved to 30 and creatinine of 2.09. Patient currently takes 20 mg by mouth Lasix daily. Monitor patient's I& O and daily weight. Nephrology consult recommendations include holding patient' s by mouth Lasix while awaiting further workup and testing for his acute on recurrent GIB, iPTH, 25-OH vitamin D, SPEP/light chains, retroperitoneal US. Continue to follow a renal protective strategy, dosed renally cleared prescriptions by CrCl. Avoid nephrotoxins. (5) CAD (coronary artery disease) Current Visit: Yes Status: Chronic Assessment and Plan: Hx of chronic CAD. Continue patient's simvastatin, by mouth Lasix, Imdur, Cozaar, Lopressor. Continuous cardiac telemetry. (6) COPD (chronic obstructive pulmonary disease) Current Visit: Yes Status: Chronic Assessment and Plan: History of chronic COPD. Stable. Continue patient's DuoNeb's and home inhalers. Supplemental O2 with titration and SPO2 monitoring. (7) Chronic diastolic CHF (congestive heart failure) Current Visit: Yes Status: Chronic Assessment and Plan: Hx of chronic diastolic CHF. Patient reports shortness of breath with mild exertion. Mild pedal edema bilaterally that is non-pitting. BNP 42. CXR negative for CHF. Monitor patient's I&O and daily weight. Hold PO lasix per Nephrology. (8) Diabetes Current Visit: Yes Status: Chronic Assessment and Plan: Hx of chronic diabetes. Continue pts. Levemir 12 units twice a day and substitute Levemir 40 units daily for patient's Tresiba 50 units daily which is non-formulary (1:1 dosing per Pharmacy). Low-dose correction sliding scale with hypoglycemic protocol added. BG checks before meals at bedtime. A1c in a.m. labs. Podiatry as OP for foot care. (9) HTN (hypertension) Current Visit: Yes Status: Chronic Assessment and Plan: Hx of chronic HTN. Monitor pt. and VS. continue patient's Lopressor, Cozaar, and Imdur. (10) HLD (hyperlipidemia) Current Visit: Yes Status: Chronic Assessment and Plan: Hx of chronic HLD. Lipid panel in a.m. labs. Continue patient's Zocor. (11) History of pulmonary embolus (PE) Current Visit: Yes Status: Resolved Assessment and Plan: History of PE/DVTs in January 2018. IVC filter. Patient placed on Coumadin at that time. Patient on Coumadin greater than 3 months, so per Surgery will hold patient's Coumadin and use bilateral SCDs on LEs for DVT prophylaxis. (12) DVT prophylaxis Current Visit: Yes Status: Acute Assessment and Plan: Bilateral SCDs on LEs for DVT prophylaxis due to current GI bleeding. - Time Spent with Patient Total time spent is greater than 50% in coordination of care (as documented) at patient's floor/unit and/or counseling patient: 25 - 35 minutes Plan of Care Discussed with: patient (Plan of care discussed w/pts. family present as well.) Internal Medicine: Result - Labs CBC & Chem 7: 04/25/18 08:36 04/25/18 00:23 Labs: Short CBC 04/24/18 04/25/18 04/25/18 Range/Units 19:15 00:23 08:36 WBC 8.2 (4.3-11.1) K/mcL Hgb 12.3 L 11.9 L 11.6 L (12.9-16.9) g/dL Hct 38.1 36.2 L 36.1 L (37.5-50.1) % Plt Count 215 (140-400) K/mcL Neutrophils # 4.5 (1.6-8.9) K/mcL BMP 04/25/18 00:23 Sodium 142 Potassium 3.6 Chloride 108 H Carbon Dioxide 23 BUN 36 H Creatinine 2.09 H Glucose 166 H Calcium 8.6 Liver Function 04/25/18 Range/Units 00:23 Total Bilirubin 0.6 (0.3-1.0) mg/dL AST 15 (13-39) Units/L ALT 13 (7-52) Units/L Alkaline Phosphatase 66 (34-104) Units/L Albumin 3.5 (3.5-5.7) g/dL - ABG Interpretation ABG results: PT/INR, D-dimer PT 22.4 Seconds (9.4-12.1) H 04/25/18 00:23 - Impressions Impressions Chest X-Ray 04/24/18 19:23 IMPRESSION: 1. Nonspecific bilateral pleural effusion, left greater than right with associated bibasilar relaxation atelectasis. Pneumonia is a consideration. No other findings are seen to suggest congestive heart failure. 2. Calcific atherosclerosis aorta. 3. Cardiomegaly. D/ / Melo Love / Melo Love Interpreting Provider: Melo Love - VTE Documentation of Mechanical Device: Intermittent pneumatic compression device Consult Discharge Plan - Plan Referrals: Fani Davis [Primary Care Provider] - (1) GI bleed Qualifiers: GI bleed type/associated pathology: melena Qualified Code(s): K92.1 - Melena (5) CAD (coronary artery disease) Qualifiers: Coronary Disease-Associated Artery/Lesion type: [place] artery [place] vs. 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
[2018-04-25 14:19] LABS: Hematocrit 33.6 % (37.5-50.1); Hemoglobin 10.8 g/dL (12.9-16.9)
[2018-04-25] MEDS: Insulin DETEMIR 100 UNIT/ML X5UNITS SQ SCH (21:47)
[2018-04-25 21:54] LABS: Hematocrit 34.7 % (37.5-50.1); Hemoglobin 11.2 g/dL (12.9-16.9)
[2018-04-26] MEDS: Ipratropium/Albuterol Neb 3 ML IH SCH ×4 (03:42→21:31)
[2018-04-26 03:45] LABS: Basophils # 0.1 K/mcL (0.0-0.2); Basophils % 1.1 %; Eosinophils # 0.6 K/mcL (0.0-0.6); Eosinophils % 6.7 %; Hematocrit 34.8 % (37.5-50.1); Hemoglobin 11.4 g/dL (12.9-16.9); Immature Granulocytes % 0.5 % (0-4); Lymphocytes # 1.9 K/mcL (0.6-4.6); Lymphocytes % 20.1 %; Mean Corpuscular HGB Conc 32.8 g/dL (31.6-35.5); Mean Corpuscular Hemoglobin 31.2 pg (28.0-33.3); Mean Corpuscular Volume 95.3 fL (83.0-100.0); Mean Platelet Volume 11.6 fL (9.4-12.4); Monocytes # 0.8 K/mcL (0.0-1.3); Monocytes % 8.7 %; Neutrophils # 5.8 K/mcL (1.6-8.9); Platelet Count 223 K/mcL (140-400); Red Blood Count 3.65 M/mcL (4.19-5.50); Red Cell Distribution Width 16.2 % (11.5-14.5); Segmented Neutrophils % 62.9 %
[2018-04-26 04:05] LABS: Albumin 3.6 g/dL (3.5-5.7); Albumin/Globulin Ratio 1.4 (1.1-2.2); Bilirubin,Total 0.7 mg/dL (0.3-1.0); Calcium 8.8 mg/dL (8.6-10.3); Globulin 2.5 g/dL (2.4-3.5); Potassium 3.7 mEq/L (3.5-5.1); Total Protein 6.1 g/dL (6.4-8.9)
[2018-04-26] MEDS: Pantoprazole 40 MG VIAL IVP SCH ×2 (05:23→18:15)
[2018-04-26] MEDS ORDERED: Ondansetron ODT 4 MG TAB.RAPDIS SL PRN (05:30)
[2018-04-26] MEDS: Insulin LISPRO 300 UNITS/3 ML VIAL SQ SCH ×4 (07:52→22:10)
[2018-04-26] MEDS: (Fluticasone/Vilanterol [Breo Ellipta 100-25 Mcg Inh]) IH SCH (09:27)
[2018-04-26] MEDS: Cholecalciferol (D-3) 1,000 UNIT TABLET PO SCH (09:27)
[2018-04-26] MEDS: Isosorbide MONOnitrate (24 HR) 30 MG TAB.ER.24H PO SCH (09:27)
[2018-04-26] MEDS: Sennosides/Docusate Sodium TABLET PO SCH (09:27)
[2018-04-26] MEDS: BETAMETHASONE DIPROPIONATE TP SCH ×2 (09:28→22:23)
[2018-04-26 09:49] LABS: Estimated Average Glucose 189 mg/dl; Hemoglobin A1C 8.2 %
--- NOTE | 2018-04-26 13:45 | Nephrology Progress Note ---
Date of Encounter: 04/26/18 Time of Encounter: 13:00 - Assessment and Plan (1) CKD (chronic kidney disease) stage 4, GFR 15-29 ml/min Current Visit: Yes Status: Chronic SCr slightly improved at 2.07, GFR 31 UOP documented in the last 500cc in the past 24hrs, will monitor Continue to avoid nephrotoxins if possible PTH and vitamin D WNL (2) HTN (hypertension) Current Visit: Yes Status: Chronic Stable with systolic in the 120s-130s Qualifiers: Hypertension type: essential hypertension Qualified Code(s): I10 - Essential (primary) hypertension (3) GI bleed Current Visit: Yes Status: Acute workup per GI. Hgb stable at 11.4 Qualifiers: GI bleed type/associated pathology: melena Qualified Code(s): K92.1 - Melena (4) Acute kidney injury superimposed on chronic kidney disease Current Visit: Yes Status: Acute (5) Diabetic nephropathy associated with type 2 diabetes mellitus Current Visit: Yes Status: Chronic Subjective Interval history: Interim events noted, pt seen and examined very hard of hearing but with no complaints. He reports still having black stools with colonoscopy planned tomorrow Objective - Vital Signs Vital signs: Vital Signs Temp Pulse Resp BP Pulse Ox 04/26/18 10:38 18 88 04/26/18 09:56 98.1 F 61 16 128/66 93 04/26/18 06:20 98.1 F 70 15 131/56 90 04/26/18 04:45 97.6 F 72 15 134/56 91 04/26/18 03:43 19 90 04/25/18 22:18 16 91 04/25/18 19:21 98.3 F 62 15 122/53 91 04/25/18 15:44 97.4 F L 63 15 108/56 93 Intake and Output 04/25/18 04/26/18 04/26/18 23:59 07:59 15:59 Intake Total 0 / 0 0 / 0 0 / 0 Output Total 250 / 250 0 / 0 0 / 0 Balance -250 / -250 0 / 0 0 / 0 Intake: Oral 0 / 0 0 / 0 0 / 0 Output: Urine 250 / 250 0 / 0 0 / 0 Other: Meal NPO Percent of Meal Consumed 0% # Bowel Movements 0 0 Weight 110 kg Blood Glucose* 161 82 102 Patient Weight 04/26/18 23:59 Weight 110 kg - General Appearance General appearance: Present: chronically ill (NAD) EENT: Present: ATNC, mucous membranes moist Neck: Present: no JVD, supple Respiratory: Present: clear Cardiology: Present: no edema, normal S1, normal S2 Gastrointestinal: Present: no tenderness, no guarding Integumentary: Present: warm and dry Neurologic: Present: no focal deficit Musculoskeletal: Present: no deformities Psychiatric: Present: mood/affect appropriate, cooperative - Lab 04/26/18 03:13 04/26/18 03:13 Most recent lab results Calcium 8.8 mg/dL (8.6-10.3) 04/26/18 03:13 Phosphorus 3.0 mg/dL (2.7-4.5) 04/26/18 03:13 Magnesium 2.1 mg/dL (1.6-2.6) 04/25/18 00:23 - VTE Documentation of Mechanical Device: Intermittent pneumatic compression device Consult Discharge Plan - Plan Referrals: Fani Davis [Primary Care Provider] -
--- NOTE | 2018-04-26 13:47 | Event Note ---
Date of Encounter: 04/26/18 Time of Encounter: 13:44 Patient unable to undergo endoscopy and colonoscopy due to insufficient bowel prep last night. Patient was unable to finish bowel prep due to it making him nauseous. Magnesium Citrate 296 ml once and dulcolax 10mg po once were given to the patient for bowel prep. Clear liquids ok today, NPO after midnight. Endoscopy and Colonoscopy rescheduled for tomorrow.
--- NOTE | 2018-04-26 16:31 | Electrocardiograph Report ---
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
--- NOTE | 2018-04-26 17:36 | Internal Med Progress Note ---
Hospitalist Progress Note - Encounter Date of Encounter: 04/26/18 Time of Encounter: 14:00 - Subjective Interval History: Patient examined at bedside today. Reports that he slept well last night. States he was unable to complete bowel prep d/t nausea. Surgery okay to give clears today w/NPO @ midnight for repeat EGD and colonoscopy. Pts. son present during exam and states that pt. is comfortable and has no complaints at this time. Pts. son concerned about OBS status versus INPT status and that insurance will not pay for meds while OBS. Discussed pt. w/UR who states he is not appropriate for INPT. SW consult ordered for financial forgiveness. Instructed son to bring home meds for verification in a.m. - Exam Vitals: Temp Pulse Resp BP Pulse Ox 97.9 F 58 18 118/47 97 04/26/18 14:56 04/26/18 14:56 04/26/18 15:53 04/26/18 14:56 04/26/18 15:53 Exam: PHYSICAL EXAMINIATION: GENERAL: Alert, no acute distress, cooperative, A&O x3 NECK: No jugulovenous distention, No carotid bruits, Carotid pulse normal contour, Supple LUNGS: Lungs clear to auscultation, Good diaphragmatic excursion CARDIAC: Normal S1 and S2; no rubs, murmurs, or gallops ABDOMEN: Abdomen soft, non-tender, BS normal, No masses or organomegaly EXTREMITIES: Extremities normal, no deformities, edema, clubbing or skin discoloration. Good capillary refill., No ulcers PSYCHIATRIC: Normal mood and affect SKIN: Dry and intact - Assessment and Plan (1) GI bleed Current Visit: Yes Status: Acute Assessment and Plan: Hgb improvement to 11.4 today Black stool continues Surgery recommendation to hold Coumadin in place patient on bilateral SCDs Will hold aspirin as well Monitor H&H every 6 Monitor I&O Surgery recommends clears today w/NPO @ midnight for repeat EGD and colonoscopy Continue bowel prep d/t cancelled procedures today d/t stool presence Continuous cardiac telemetry. (2) Shortness of breath Current Visit: Yes Status: Acute Assessment and Plan: Hx of COPD and CHF Supplemental O2 with titration and SPO2 monitoring Falls/safety precautions Up with assist only Continue patient's DuoNeb's and inhalers (3) Weakness Current Visit: Yes Status: Acute Assessment and Plan: Falls/safety precautions and up with assist only (4) CKD (chronic kidney disease) stage 4, GFR 15-29 ml/min Current Visit: Yes Status: Chronic Assessment and Plan: GFR improved to 301and creatinine of 2.07 Nephrology consult recommendations include holding patient's by mouth Lasix while awaiting further workup and testing for his acute on recurrent GIB, iPTH, 25-OH vitamin D, SPEP/light chains, retroperitoneal US Continue to follow a renal protective strategy, dosed renally cleared prescriptions by Cr[facility]. Avoid nephrotoxins. (5) CAD (coronary artery disease) Current Visit: Yes Status: Chronic Assessment and Plan: Hx of chronic CAD Continue patient's simvastatin, by mouth Lasix, Imdur, Cozaar, Lopressor. Continuous cardiac telemetry. (6) COPD (chronic obstructive pulmonary disease) Current Visit: Yes Status: Chronic Assessment and Plan: Stable Continue patient's DuoNeb's and home inhalers Supplemental O2 with titration and SPO2 monitoring (7) Chronic diastolic CHF (congestive heart failure) Current Visit: Yes Status: Chronic Assessment and Plan: BNP 42 CXR negative for CHF Monitor patient's I&O and daily weight Hold PO lasix per Nephrology (8) Diabetes Current Visit: Yes Status: Chronic Assessment and Plan: Levemir 12 units twice a day and substitute Levemir 40 units daily for patient' s Tresiba 50 units daily which is non-formulary (1:1 dosing per Pharmacy) Low-dose correction sliding scale with hypoglycemic protocol added BG checks before meals at bedtime A1c in a.m. labs Podiatry as OP for foot care (9) HTN (hypertension) Current Visit: Yes Status: Chronic Assessment and Plan: Monitor pt. and VS Continue patient's Lopressor, Cozaar, and Imdur (10) HLD (hyperlipidemia) Current Visit: Yes Status: Chronic Assessment and Plan: Continue patient's Zocor (11) History of pulmonary embolus (PE) Current Visit: Yes Status: Resolved Assessment and Plan: IVC filter Hold patient's Coumadin and use bilateral SCDs on LEs for DVT prophylaxis (12) DVT prophylaxis Current Visit: Yes Status: Acute Assessment and Plan: Bilateral SCDs on LEs for DVT prophylaxis due to current GI bleeding - Summary of Assessment and Plan Summary of Assessment and Plan: Pt. unable to have EGD and colonoscopy today d/t presence of stool Repeat bowel prep Clears until midnight NPO @ midnight Repeat EGD and colonoscopy in a.m. - Time Spent with Patient Total time spent is greater than 50% in coordination of care (as documented) at patient's floor/unit and/or counseling patient: 25 - 35 minutes Plan of Care Discussed with: patient Internal Medicine: Result - Labs CBC & Chem 7: 04/26/18 03:13 04/26/18 03:13 Labs: Short CBC 04/25/18 04/26/18 Range/Units 21:34 03:13 WBC 9.2 (4.3-11.1) K/mcL Hgb 11.2 L 11.4 L (12.9-16.9) g/dL Hct 34.7 L 34.8 L (37.5-50.1) % Plt Count 223 (140-400) K/mcL Neutrophils # 5.8 (1.6-8.9) K/mcL BMP 04/26/18 03:13 Sodium 139 Potassium 3.7 Chloride 108 H Carbon Dioxide 25 BUN 29 H Creatinine 2.07 H Glucose 83 Calcium 8.8 Liver Function 04/26/18 Range/Units 03:13 Total Bilirubin 0.7 (0.3-1.0) mg/dL AST 15 (13-39) Units/L ALT 13 (7-52) Units/L Alkaline Phosphatase 64 (34-104) Units/L Albumin 3.6 (3.5-5.7) g/dL - ABG Interpretation ABG results: PT/INR, D-dimer PT 22.4 Seconds (9.4-12.1) H 04/25/18 00:23 - Impressions Impressions Retroperitoneum Ultrasound 04/26/18 08:30 IMPRESSION: Findings suggesting chronic medical renal disease with bilateral renal cortical atrophy. No evidence of hydronephrosis. Unremarkable appearance of the bladder. D/ / Magdi Baer MD / Magdi Baer MD Interpreting Provider: Magdi Baer MD - VTE Documentation of Mechanical Device: Intermittent pneumatic compression device Consult Discharge Plan - Plan Referrals: Fani Davis [Primary Care Provider] - (1) GI bleed Qualifiers: GI bleed type/associated pathology: melena Qualified Code(s): K92.1 - Melena (5) CAD (coronary artery disease) Qualifiers: Coronary Disease-Associated Artery/Lesion type: [place] artery [place] vs. transplanted heart: [place] heart Associated angina: without angina Qualified Code(s): I25.10 - Atherosclerotic heart disease of [place] coronary artery without angina pectoris (6) COPD (chronic obstructive pulmonary disease) Qualifiers: COPD type: chronic bronchitis Chronic bronchitis type: simple Qualified Code (s): J41.0 - Simple chronic bronchitis (8) Diabetes Qualifiers: Diabetes mellitus type: type 2 Diabetes mellitus half-way insulin use: with half-way use Diabetes mellitus complication status: with neurologic complications Diabetes mellitus complication detail: with polyneuropathy Qualified Code(s): E11.42 - Type 2 diabetes mellitus with diabetic polyneuropathy; 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
--- NOTE | 2018-04-26 20:31 | Anesthesia Evaluation PreOp ---
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 History: Other (depression) Other Medical History: Renal (Stones, stage IV CRD), Diabetes Type II, Other ( Obese) Anesthesia History: No Prior Anesthetic Complications, Past Anesthesia ( cholecystectomy, herniorrhaphy, IVC Filter (3 weeks ago)) Alcohol Use: none Drug use: none Medications and Allergies Allopurinol [Zyloprim] 100 mg PO DAILY 05/13/15 [History] Aspirin 81 mg PO DAILY 05/13/15 [History] Cholecalciferol (Vitamin D3) [Vitamin D3] 5,000 mg PO DAILY 05/13/15 [History] Losartan [Cozaar] 25 mg PO DAILY 05/13/15 [History] Sertraline HCl [Zoloft] 25 mg PO HS 05/13/15 [History] Simvastatin [Zocor] 20 mg PO HS 05/13/15 [History] Vitamin E 400 unit PO DAILY 05/13/15 [History] Levothyroxine [Synthroid] 50 mcg PO DAILY 11/29/15 [History] Isosorbide MONOnitrate (24 HR) [Imdur] 30 mg PO DAILY #30 tab.er.24h 04/29/16 [ Rx] Albuterol Sulfate [Albuterol Inhaler] 2 puff IH Q4H PRN 30 Days inh 10/21/16 [ Rx] Ferrous Gluconate 324 mg PO DAILY 01/12/17 [History] Sennosides/Docusate Sodium [Senna Plus] 1 tab PO DAILY 01/12/17 [History] Polyethylene Glycol 3350 [MiraLAX] 17 gm PO DAILY #7 powd.pack 11/14/17 [Rx] Fluticasone/Vilanterol [Breo Ellipta 100-25 Mcg INH] 1 puff IH DAILY 01/17/18 [ History] Linaclotide [Linzess] 290 mcg PO DAILY 01/17/18 [History] GuaiFENesin/Dextromethorphan [Robitussin/Dm] 5 ml PO Q4HR PRN udc 01/29/18 [Rx] Ipratropium/Albuterol Neb [Duoneb] 3 ml IH [id number] inhsol 01/29/18 [Rx] Metoprolol [Lopressor] 25 mg PO BID tablet 01/29/18 [Rx] Nystatin POWDER [Nystop] 1 appl TP BID bottle 01/31/18 [Rx] Acetaminophen [Tylenol] 650 mg PO Q6HR PRN tablet 02/09/18 [Rx] Famotidine [Pepcid] 20 mg PO HS tablet 02/09/18 [Rx] Nitroglycerin 0.4 mg SL Q5MIN PRN tab.subl 02/09/18 [Rx] Omeprazole [PriLOSEC] 40 mg PO DAILY@0630 capsule. 02/09/18 [Rx] Warfarin [Coumadin] 5 mg PO DAILY@1800 tablet 02/09/18 [Rx] Furosemide [Lasix] 20 mg PO DAILY 04/24/18 [History] Insulin DETEMIR [Levemir] 60 units SQ HS 04/24/18 [History] 3 Allergy/AdvReac Type Severity Reaction Status Date / Time morphine Allergy Rash Verified 04/24/18 15:14 - Meds/Allergy Pre-op Review Medications Reviewed: Yes Allergies Reviewed: Yes Beta Blockers on Current Med List: Yes If Beta Blockers taken, Date/Time (Last Dose taken): Due in AM Anesthesia Results - Labs 04/26/18 03:13 04/26/18 03:13 Limited Echocardiogram Name: Sierra Colon Date of Study: 05/14/2015 Impressions: LVEF 60%. Mild concentric left ventricular hypertrophy. Diastolic function not evaluated. Grossly normal right ventricular function. This was a limited echocardiogram. See prior study dated 11/24/2014 for further details. - Imaging EKG: report reviewed (SINUS RHYTHM WITH FIRST DEGREE AV BLOCK LOW QRS VOLTAGE IN PRECORDIAL LEADS [QRS DEFLECTION < 1.0 mV IN CHEST LEADS] PROBABLE INFERIOR MYOCARDIAL INFARCTION) Anesthesia Exam Vital Signs/O2 Sat, Most Current Temp Pulse Resp BP Pulse Ox 98.8 F 74 14 126/55 91 04/26/18 19:39 04/26/18 19:39 04/26/18 19:39 04/26/18 19:39 04/26/18 19:39 NPO (# of Hours): Pain Scale: 0 Pain Scale Used: Numeric (1 - 10) - HEENT Pupil (Motor): Pupils equal, EOMI Mallampati: III Teeth: Missing Denture Type: Upper: Complete Oral Opening: Greater than 3 - ENVIRONMENTAL EPIDEMIOLOGIST LOC: Oriented ENVIRONMENTAL EPIDEMIOLOGIST Motor: Normal RUE, Normal LUE, Normal RLE, Normal LLE, Normal Face ENVIRONMENTAL EPIDEMIOLOGIST Sensory: Normal: RUE, LUE, RLE, LLE, Face - Cardiac Rhythm: Regular Murmur: None JVD: No Carotid Bruit: No - Pulmonary Breath Sounds: bilateral Clear Respiratory Effort: Symmetrical Anesthesia Assess/Plan ASA Score: 3 Modified Bernie Scale for Level of Consciousness: Cooperative, oriented, and tranquil Anesthetic Plan: MAC Autologous Blood: Yes Monitoring Plan: Standard Monitors Recovery Plan: Other
[2018-04-26] MEDS: Insulin DETEMIR 100 UNIT/ML X5UNITS SQ SCH (22:21)
[2018-04-27 02:35] LABS: Basophils # 0.1 K/mcL (0.0-0.2); Basophils % 1.1 %; Eosinophils # 0.7 K/mcL (0.0-0.6); Eosinophils % 7.7 %; Hematocrit 36.7 % (37.5-50.1); Hemoglobin 11.7 g/dL (12.9-16.9); Immature Granulocytes % 0.4 % (0-4); Lymphocytes # 1.9 K/mcL (0.6-4.6); Lymphocytes % 20.2 %; Mean Corpuscular HGB Conc 31.9 g/dL (31.6-35.5); Mean Corpuscular Hemoglobin 30.8 pg (28.0-33.3); Mean Corpuscular Volume 96.6 fL (83.0-100.0); Mean Platelet Volume 11.6 fL (9.4-12.4); Monocytes # 0.6 K/mcL (0.0-1.3); Platelet Count 243 K/mcL (140-400); Red Cell Distribution Width 16.3 % (11.5-14.5); Segmented Neutrophils % 64.6 %
[2018-04-27 02:53] LABS: Albumin 3.7 g/dL (3.5-5.7); Albumin/Globulin Ratio 1.4 (1.1-2.2); Bilirubin,Total 0.6 mg/dL (0.3-1.0); Globulin 2.6 g/dL (2.4-3.5); Potassium 4.2 mEq/L (3.5-5.1); Total Protein 6.3 g/dL (6.4-8.9)
[2018-04-27] MEDS: Ipratropium/Albuterol Neb 3 ML IH SCH ×2 (03:42→10:16)
[2018-04-27] MEDS: Pantoprazole 40 MG VIAL IVP SCH ×2 (06:17→19:34)
[2018-04-27] MEDS: Insulin LISPRO 300 UNITS/3 ML VIAL SQ SCH ×3 (07:42→16:42)
[2018-04-27] MEDS: Cholecalciferol (D-3) 1,000 UNIT TABLET PO SCH (09:06)
[2018-04-27] MEDS: Sennosides/Docusate Sodium TABLET PO SCH (09:07)
[2018-04-27] MEDS: Isosorbide MONOnitrate (24 HR) 30 MG TAB.ER.24H PO SCH (09:07)
[2018-04-27] MEDS: (Fluticasone/Vilanterol [Breo Ellipta 100-25 Mcg Inh]) IH SCH (09:08)
[2018-04-27] MEDS: BETAMETHASONE DIPROPIONATE TP SCH ×2 (09:09→20:44)
--- NOTE | 2018-04-27 10:46 | Internal Med Progress Note ---
Hospitalist Progress Note - Encounter Date of Encounter: 04/27/18 Time of Encounter: 10:46 - Subjective Interval History: 87 M with COPD, DM, HTN, Obesity, recent diagnosis of PE He is being managed for suspected GI bleed He denied new complains, and is awaiting EGD/Colonoscopy HB stable at 11 - Exam Vitals: Temp Pulse Resp BP Pulse Ox 98.0 F 64 18 133/63 91 04/27/18 06:51 04/27/18 06:51 04/27/18 10:17 04/27/18 06:51 04/27/18 10:17 Exam: PHYSICAL EXAMINIATION: GENERAL: Alert, no acute distress, cooperative, A&O x3 EYES: Pupils equal and reactive, sclera anicteric NECK: No jugulovenous distention, No carotid bruits, Carotid pulse normal contour, Supple LUNGS: Lungs clear to auscultation, Good diaphragmatic excursion CARDIAC: Normal S1 and S2; no rubs, murmurs, or gallops ABDOMEN: Abdomen soft, non-tender, BS normal, No masses or organomegaly EXTREMITIES: Extremities normal, no deformities, edema, clubbing or skin discoloration. Good capillary refill., No ulcers PSYCHIATRIC: Normal mood and affect SKIN: Dry and intact - Assessment and Plan (1) CAD (coronary artery disease) Current Visit: Yes Status: Chronic Assessment and Plan: Hx of chronic CAD Continue patient's simvastatin, by mouth Lasix, Imdur, Cozaar, Lopressor. Continuous cardiac telemetry. (2) Diabetes Current Visit: Yes Status: Chronic Assessment and Plan: FS currently controlled Continue current insulin regimen FS ACHS ADA diet after scope (3) Chronic diastolic CHF (congestive heart failure) Current Visit: Yes Status: Chronic Assessment and Plan: BNP 42 CXR negative for CHF Monitor patient's I&O and daily weight Hold PO lasix per Nephrology (4) History of pulmonary embolus (PE) Current Visit: Yes Status: Resolved Assessment and Plan: IVC filter Hold patient's Coumadin and use bilateral SCDs on LEs for DVT prophylaxis (5) COPD (chronic obstructive pulmonary disease) Current Visit: Yes Status: Chronic Assessment and Plan: Not in exacerbation Continue patient's DuoNeb's prn and home inhalers Supplemental O2 with titration and SPO2 monitoring (6) HTN (hypertension) Current Visit: Yes Status: Chronic Assessment and Plan: Monitor pt. and VS Continue patient's Lopressor, Cozaar, and Imdur (7) Weakness Current Visit: Yes Status: Acute Assessment and Plan: Falls/safety precautions and up with assist only (8) CKD (chronic kidney disease) stage 4, GFR 15-29 ml/min Current Visit: Yes Status: Chronic Assessment and Plan: Renal function is still within patient's baseline Nephrology consult recommendations include holding patient's by mouth Lasix while awaiting further workup and testing for his acute on recurrent GIB, iPTH, 25-OH vitamin D, SPEP/light chains, retroperitoneal US Continue to follow a renal protective strategy, dosed renally cleared prescriptions by CrCl. Avoid nephrotoxins. (9) Shortness of breath Current Visit: Yes Status: Resolved Assessment and Plan: resolved Hx of COPD and CHF Supplemental O2 with titration and SPO2 monitoring Falls/safety precautions Up with assist only Continue patient's DuoNeb's and inhalers (10) DVT prophylaxis Current Visit: Yes Status: Acute Assessment and Plan: Bilateral SCDs on LEs for DVT prophylaxis due to current GI bleeding (11) GI bleed Current Visit: Yes Status: Suspected Assessment and Plan: Suspected Hgb stable at 11 Black stool continues Coumadin and ASA on hold Continue to monitor Hb For EGD and colonoscopy today Continuous cardiac telemetry. (12) HLD (hyperlipidemia) Current Visit: Yes Status: Chronic Assessment and Plan: Continue patient's Zocor - Summary of Assessment and Plan Summary of Assessment and Plan: EGD and colonoscopy today - Time Spent with Patient Total time spent is greater than 50% in coordination of care (as documented) at patient's floor/unit and/or counseling patient: Plan of Care Discussed with: family Internal Medicine: Result - Labs CBC & Chem 7: 04/27/18 01:59 04/27/18 01:59 Labs: Short CBC 04/27/18 Range/Units 01:59 WBC 9.3 (4.3-11.1) K/mcL Hgb 11.7 L (12.9-16.9) g/dL Hct 36.7 L (37.5-50.1) % Plt Count 243 (140-400) K/mcL Neutrophils # 6.0 (1.6-8.9) K/mcL BMP 04/27/18 01:59 Sodium 139 Potassium 4.2 Chloride 106 Carbon Dioxide 25 BUN 28 H Creatinine 2.22 H Glucose 177 H Calcium 9.0 Liver Function 04/27/18 Range/Units 01:59 Total Bilirubin 0.6 (0.3-1.0) mg/dL AST 13 (13-39) Units/L ALT 11 (7-52) Units/L Alkaline Phosphatase 64 (34-104) Units/L Albumin 3.7 (3.5-5.7) g/dL - ABG Interpretation ABG results: PT/INR, D-dimer PT 22.4 Seconds (9.4-12.1) H 04/25/18 00:23 - VTE Documentation of Mechanical Device: Intermittent pneumatic compression device Consult Discharge Plan - Plan Referrals: Fani Davis [Primary Care Provider] - (1) CAD (coronary artery disease) Qualifiers: Coronary Disease-Associated Artery/Lesion type: [place] artery [place] vs. transplanted heart: [place] heart Associated angina: without angina Qualified Code(s): I25.10 - Atherosclerotic heart disease of [place] coronary artery without angina pectoris (2) Diabetes Qualifiers: Diabetes mellitus type: type 2 Diabetes mellitus rush seater insulin use: with alf use Diabetes mellitus complication status: with neurologic complications Diabetes mellitus complication detail: with polyneuropathy Qualified Code(s): E11.42 - Type 2 diabetes mellitus with diabetic polyneuropathy; Z79.4 - patient services representative (current) use of insulin (5) COPD (chronic obstructive pulmonary disease) Qualifiers: COPD type: chronic bronchitis Chronic bronchitis type: simple Qualified Code (s): J41.0 - Simple chronic bronchitis (6) HTN (hypertension) Qualifiers: Hypertension type: essential hypertension Qualified Code(s): I10 - Essential (primary) hypertension (11) GI bleed Qualifiers: GI bleed type/associated pathology: melena Qualified Code(s): K92.1 - [place] (12) HLD (hyperlipidemia) Qualifiers: Hyperlipidemia type: pure hypercholesterolemia Qualified Code(s): E78.00 - Pure hypercholesterolemia, unspecified; E78.0 - Pure hypercholesterolemia
[2018-04-27] MEDS ORDERED: Ipratropium/Albuterol Neb 3 ML IH PRN (11:47)
--- NOTE | 2018-04-27 12:55 | Nephrology Progress Note ---
Date of Encounter: 04/27/18 Time of Encounter: 12:00 - Assessment and Plan (1) CKD (chronic kidney disease) stage 4, GFR 15-29 ml/min Status: Chronic SCr slightly elevated at 2.22, GFR 28 but within range of fluctuation Continue supprotive care No current interventions from our end at this time (2) HTN (hypertension) Status: Chronic Qualifiers: Hypertension type: essential hypertension Qualified Code(s): I10 - Essential (primary) hypertension (3) GI bleed Status: Ruled-out Per primary team and GI, hgb stable at 11.7 today Qualifiers: GI bleed type/associated pathology: melena Qualified Code(s): K92.1 - Melena (4) Acute kidney injury superimposed on chronic kidney disease Status: Acute (5) Diabetic nephropathy associated with type 2 diabetes mellitus Status: Chronic Subjective Interval history: Interim events noted, pt seen and examined very hard of hearing but with no complaints. Colonoscopy pending today. Objective - Vital Signs Vital signs: Vital Signs Temp Pulse Resp BP Pulse Ox 04/27/18 11:10 97.5 F L 73 18 116/57 92 04/27/18 10:17 18 91 04/27/18 06:51 98.0 F 64 18 133/63 96 04/27/18 05:15 98.4 F 67 15 139/64 94 04/27/18 03:42 16 94 04/26/18 23:51 97.5 F L 85 15 130/67 95 04/26/18 21:31 16 96 04/26/18 19:39 98.8 F 74 14 126/55 91 04/26/18 15:53 18 97 04/26/18 14:56 97.9 F 58 18 118/47 97 Intake and Output 04/26/18 04/27/18 04/27/18 23:59 07:59 15:59 Intake Total 340 / 340 0 / 0 Output Total 0 / 0 0 / 0 Balance 340 / 340 0 / 0 Intake: Oral 340 / 340 0 / 0 Output: Urine 0 / 0 0 / 0 Other: Meal Clears npo breakfast Stool Size Large Stool Consistency liquid Stool Color Brown Green # Voids 1 0 # Bowel Movements 0 1 Weight 108.7 kg Blood Glucose* 155 113 85 - General Appearance General appearance: Present: well-developed, well-nourished EENT: Present: ATNC, mucous membranes moist Neck: Present: no JVD, supple Respiratory: Present: clear Cardiology: Present: no edema, normal S1, normal S2 Gastrointestinal: Present: no tenderness, no guarding Integumentary: Present: warm and dry Neurologic: Present: no focal deficit Psychiatric: Present: mood/affect appropriate, cooperative - Lab 04/28/18 06:14 04/28/18 06:14 Most recent lab results Calcium 9.0 mg/dL (8.6-10.3) 04/27/18 01:59 Phosphorus 3.0 mg/dL (2.7-4.5) 04/26/18 03:13 Magnesium 2.1 mg/dL (1.6-2.6) 04/25/18 00:23 - VTE Documentation of Mechanical Device: Intermittent pneumatic compression device Consult Discharge Plan - Plan Referrals: Fani Davis [Primary Care Provider] - 05/04/18 11:00 am (Please go in on Thursday for lab work and appt. will be on Thursday.) Prescriptions: Enoxaparin [Lovenox] 100 mg SQ DAILY #4 syr Psyllium [Metamucil Fiber Singles Packet] 2 packet PO DAILY #60 powd.pack Sucralfate [Carafate] 1 gm PO 0630,1130,2100 #90 tablet
[2018-04-27] MEDS ORDERED: Propofol 500 MG/50 ML INFUS..BTL ONE (18:08)
[2018-04-27] MEDS ORDERED: Lidocaine -MPF 2% 2 ML VIAL ONE (18:10)
[2018-04-27] MEDS ORDERED: EPHEDrine 50 MG/ML VIAL ONE (18:41)
[2018-04-27] MEDS ORDERED: *HR* PHENYLEPHRINE 1,000 MCG/10 ML SYRINGE IVP ONE (18:42)
[2018-04-27] MEDS ORDERED: *HR* Dextrose 50 % in Water (Syg) 50 ML SYRINGE IVP PRN (19:05)
[2018-04-27] MEDS ORDERED: Naloxone 0.4 MG/ML INJ IVP PRN (19:05)
[2018-04-27] MEDS ORDERED: Dextrose Gel 15 GM/37.5 ML TUBE PO PRN ×2 (19:05)
[2018-04-27] MEDS ORDERED: Nitroglycerin 0.4 MG TAB.SUBL SL PRN (19:05)
[2018-04-27] MEDS ORDERED: Ondansetron ODT 4 MG TAB.RAPDIS SL PRN (19:05)
[2018-04-27] MEDS ORDERED: D5% in Water 1,000 ML IVC PRN (19:05)
[2018-04-27] MEDS ORDERED: Acetaminophen 325 MG TABLET PO PRN (19:05)
[2018-04-27 19:45] LABS: Bilirubin,Urine Negative (Negative); Blood,Urine Negative (Negative); Clarity,Urine Clear (Clear); Color,Urine Yellow (Yellow); Glucose,Urine (UA) Normal (Normal); Ketones,Urine Negative (Negative); Leukocyte Esterase,Urine Negative (Negative); Nitrite,Urine Negative (Negative); Protein,Urine Negative (Neg-Trace); Specific Gravity,Urine 1.021 (1.010-1.025); Urobilinogen,Urine Normal (Normal)
[2018-04-27 19:55] LABS: Protein/Creatinine Ratio,Urine 0.09 mg/mg (0.00-0.20)
[2018-04-27] MEDS: ALCLOMETASONE TP SCH (20:44)
[2018-04-27] MEDS ORDERED: Insulin DETEMIR 100 UNIT/ML X5UNITS SQ SCH (21:00)
[2018-04-27] MEDS ORDERED: Insulin LISPRO 300 UNITS/3 ML VIAL SQ SCH (21:00)
[2018-04-27] MEDS ORDERED: Budesonide/Formoterol 80/4.5 MDI IH SCH (22:00)
[2018-04-27] MEDS: Budesonide/Formoterol 80/4.5 MDI IH SCH (22:12)
[2018-04-27] MEDS: Ipratropium/Albuterol Neb 3 ML IH PRN (22:13)
[2018-04-28 04:09] LABS: Alpha 2 Globulin (PEP) 0.91 g/dL (0.48-1.05); Beta Globulin (PEP) 0.77 g/dL (0.48-1.10)
[2018-04-28 04:23] LABS: Kappa Qnt Free Light Chains 7.23 mg/dL (0.33-1.94); Lambda Qnt Free Light Chains 2.4 mg/dL (0.57-2.63)
[2018-04-28] MEDS ORDERED: Pantoprazole 40 MG VIAL IVP SCH (06:00)
[2018-04-28 06:43] LABS: Basophils # 0.1 K/mcL (0.0-0.2); Basophils % 1.2 %; Eosinophils # 0.8 K/mcL (0.0-0.6); Eosinophils % 10.1 %; Hematocrit 35.4 % (37.5-50.1); Immature Granulocytes % 0.4 % (0-4); Lymphocytes # 1.8 K/mcL (0.6-4.6); Lymphocytes % 23.8 %; Mean Corpuscular HGB Conc 31.1 g/dL (31.6-35.5); Mean Corpuscular Hemoglobin 30.7 pg (28.0-33.3); Mean Corpuscular Volume 98.9 fL (83.0-100.0); Mean Platelet Volume 11.1 fL (9.4-12.4); Monocytes # 0.6 K/mcL (0.0-1.3); Monocytes % 7.4 %; Neutrophils # 4.3 K/mcL (1.6-8.9); Platelet Count 209 K/mcL (140-400); Red Blood Count 3.58 M/mcL (4.19-5.50); Red Cell Distribution Width 16.3 % (11.5-14.5); Segmented Neutrophils % 57.1 %
[2018-04-28 07:10] LABS: Calcium 8.9 mg/dL (8.6-10.3)
[2018-04-28] MEDS: Ipratropium/Albuterol Neb 3 ML IH PRN (07:30)
[2018-04-28] MEDS: Budesonide/Formoterol 80/4.5 MDI IH SCH (07:30)
[2018-04-28] MEDS: Insulin LISPRO 300 UNITS/3 ML VIAL SQ SCH ×2 (07:46→13:23)
[2018-04-28] MEDS ORDERED: Psyllium 1 PACKET POWD.PACK PO SCH (09:00)
[2018-04-28] MEDS ORDERED: Cholecalciferol (D-3) 1,000 UNIT TABLET PO SCH (09:00)
[2018-04-28] MEDS ORDERED: Isosorbide MONOnitrate (24 HR) 30 MG TAB.ER.24H PO SCH (09:00)
[2018-04-28] MEDS ORDERED: Sennosides/Docusate Sodium TABLET PO SCH (09:00)
[2018-04-28] MEDS: BETAMETHASONE DIPROPIONATE TP SCH (09:50)
[2018-04-28] MEDS: ALCLOMETASONE TP SCH (09:50)
[2018-04-28 10:09] VITALS: BP 139/64
--- NOTE | 2018-04-28 11:26 | Physician Discharge Referral ---
Home Health/Hosp Referral Info Transfer to: Home Health Attending Provider: Abhijit Rodriguez Provider in Charge Post Discharge: PCP - Diagnosis (1) CAD (coronary artery disease) Priority: Secondary Status: Chronic (2) Diabetes Priority: Secondary Status: Chronic (3) Chronic diastolic CHF (congestive heart failure) Priority: Secondary Status: Chronic (4) History of pulmonary embolus (PE) Priority: Secondary Status: Chronic (5) COPD (chronic obstructive pulmonary disease) Priority: Secondary Status: Chronic (6) HTN (hypertension) Priority: Secondary Status: Chronic (7) Weakness Priority: Secondary Status: Acute (8) CKD (chronic kidney disease) stage 4, GFR 15-29 ml/min Priority: Secondary Status: Chronic (9) Shortness of breath Priority: Primary Status: Resolved (10) DVT prophylaxis Priority: Primary Status: Acute (11) GI bleed Priority: Primary Status: Resolved (12) HLD (hyperlipidemia) Priority: Secondary Status: Chronic - Respiratory Orders Smoking Cessation: Smoking cessation has been advised. For more information, call the [place] Tobacco Quit Line at 3-825-SLZS-NOW. - Diet/Nutrition Diet/Nutrition Orders: Cardiac - Activity Activity Orders: Up ad kimberly - Services Needed Following services are medically necessary services: Nursing, Home Health Aide, Physical Therapy, Occupational Therapy - Transfer Medications Prescriptions: Enoxaparin [Lovenox] 100 mg SQ DAILY #4 syr RX: Psyllium [Metamucil Fiber Singles Packet] 2 packet PO DAILY #60 powd.pack RX: Sucralfate [Carafate] 1 gm PO 0630,1130,2100 #90 tablet Home Medications: RX: Allopurinol [Zyloprim] 100 mg PO DAILY 05/13/15 [History] RX: Aspirin 81 mg PO DAILY 05/13/15 [History] RX: Cholecalciferol (Vitamin D3) [Vitamin D3] 5,000 mg PO DAILY 05/13/15 [ History] RX: Losartan [Cozaar] 25 mg PO DAILY 05/13/15 [History] RX: Sertraline HCl [Zoloft] 25 mg PO HS 05/13/15 [History] RX: Simvastatin [Zocor] 20 mg PO HS 05/13/15 [History] RX: Levothyroxine [Synthroid] 50 mcg PO DAILY 11/29/15 [History] RX: Isosorbide MONOnitrate (24 HR) [Imdur] 30 mg PO DAILY #30 tab.er.24h [Rx] RX: Albuterol Sulfate [Albuterol Inhaler] 2 puff IH Q4H PRN 30 Days inh [Rx] RX: Ferrous Gluconate 324 mg PO DAILY 01/12/17 [History] RX: Sennosides/Docusate Sodium [Senna Plus] 1 tab PO DAILY 01/12/17 [History] RX: Polyethylene Glycol 3350 [MiraLAX] 17 gm PO DAILY #7 powd.pack 11/14/17 [Rx] RX: Fluticasone/Vilanterol [Breo Ellipta 100-25 Mcg INH] 1 puff IH DAILY [History] RX: Linaclotide [Linzess] 290 mcg PO DAILY 01/17/18 [History] RX: GuaiFENesin/Dextromethorphan [Robitussin/Dm] 5 ml PO Q4HR PRN udc 01/29/18 [Rx] RX: Ipratropium/Albuterol Neb [Duoneb] 3 ml IH [id number] inhsol 01/29/18 [Rx] RX: Metoprolol [Lopressor] 25 mg PO BID tablet 01/29/18 [Rx] RX: Nystatin POWDER [Nystop] 1 appl TP BID bottle 01/31/18 [Rx] RX: Acetaminophen [Tylenol] 650 mg PO Q6HR PRN tablet 02/09/18 [Rx] RX: Nitroglycerin 0.4 mg SL Q5MIN PRN tab.subl 02/09/18 [Rx] RX: Omeprazole [PriLOSEC] 40 mg PO DAILY@0630 capsule.dr 02/09/18 [Rx] RX: Warfarin [Coumadin] 5 mg PO DAILY@1800 tablet 02/09/18 [Rx] Insulin DETEMIR [Levemir] 60 units SQ HS 04/24/18 [History] RX: Furosemide [Lasix] 20 mg PO DAILY 04/24/18 [History] Enoxaparin [Lovenox] 100 mg SQ DAILY #4 syr 04/28/18 [Rx] RX: Psyllium [Metamucil Fiber Singles Packet] 2 packet PO DAILY #60 powd.pack 08 /15/18 [Rx] RX: Sucralfate [Carafate] 1 gm PO 0630,1130,2100 #90 tablet 04/28/18 [Rx] Allergies/Adverse Reactions: 3 Allergy/AdvReac Type Severity Reaction Status Date / Time morphine Allergy Rash Verified 04/24/18 15:14 Certification: Further, I certify that my clinical findings support that this patient is homebound (i.e. absences from home require considerable and taxing effort and are for medical reasons or congregation services or infrequently or short duration when for other reasons) because: Homebound Reason: Patient requires assistance of a person or device to safely leave home Attestation: My signature below is to certify that this patient is under my care and that I, or nurse practitioner, or a physician's health care legal assistant working with me, has a face-to -face encounter with this patient.
--- NOTE | 2018-04-28 11:27 | Discharge Summary ---
- NOTES TO OUTPATIENT PROVIDER Notes to Outpatient Provider: Patient was admitted for suspected GI bleed following complains of passing of black stool. Coumadin was held and EGD showed angiodysplasia which was cauterized, no active bleed on EGD or colonoscopy. Colonoscopy showed diverticulosis without diverticulitis. Home medications have been resumed, patient is bridged with Lovenox at renal dose. Follow-up for INR check in 4-5 days Orders not resulted at time of discharge: Pending orders 04/27/18 18:36 H. pylori Urease Culture [RM] Routine 04/27/18 18:49 Surgical Pathology [PTH] Routine 04/28/18 11:14 PT/INR [Prothrombin Time INR] [COAG] Stat Date of Encounter: 04/28/18 Time of Encounter: 11:26 - Discharge Diagnosis (1) CAD (coronary artery disease) Priority: Secondary Status: Chronic Qualifiers: Coronary Disease-Associated Artery/Lesion type: [place] artery [place] vs. transplanted heart: [place] heart Associated angina: without angina Qualified Code(s): I25.10 - Atherosclerotic heart disease of [place] coronary artery without angina pectoris (2) Diabetes Priority: Secondary Status: Chronic Qualifiers: Diabetes mellitus type: type 2 Diabetes mellitus mcc insulin use: with buttermaker helper use Diabetes mellitus complication status: with neurologic complications Diabetes mellitus complication detail: with polyneuropathy Qualified Code(s): E11.42 - Type 2 diabetes mellitus with diabetic polyneuropathy; Z79.4 - manager intermediate (current) use of insulin (3) Chronic diastolic CHF (congestive heart failure) Priority: Secondary Status: Chronic (4) History of pulmonary embolus (PE) Priority: Secondary Status: Chronic (5) COPD (chronic obstructive pulmonary disease) Priority: Secondary Status: Chronic Qualifiers: COPD type: chronic bronchitis Chronic bronchitis type: simple Qualified Code(s): J41.0 - Simple chronic bronchitis (6) HTN (hypertension) Priority: Secondary Status: Chronic Qualifiers: Hypertension type: essential hypertension Qualified Code(s): I10 - Essential (primary) hypertension (7) Weakness Priority: Primary Status: Resolved (8) CKD (chronic kidney disease) stage 4, GFR 15-29 ml/min Priority: Secondary Status: Chronic (9) Shortness of breath Priority: Primary Status: Resolved (10) DVT prophylaxis Priority: Primary Status: Acute (11) GI bleed Priority: Primary Status: Ruled-out Qualifiers: GI bleed type/associated pathology: melena Qualified Code(s): K92.1 - Melena (12) HLD (hyperlipidemia) Priority: Secondary Status: Chronic Qualifiers: Hyperlipidemia type: pure hypercholesterolemia Qualified Code(s): E78.00 - Pure hypercholesterolemia, unspecified; E78.0 - Pure hypercholesterolemia Hospital course: Mr. Colon is a 87 year old male 87 M with COPD, DM, HTN, Obesity, CHF with preserved ejection fraction and recent diagnosis of PE He was admitted for evaluation for GI bleed following complains of dark stool. His hemoglobin remained stable at 11, Hemoccult was positive however, patient was on iron supplements at home. Other workup including vitamin D and PTH was unremarkable. BMP was within normal limits for patient's kidney function range , BNP was negative chest x-ray was unremarkable The patient had EGD done on 04/27 which revealed angiodysplasia and gastritis which was biopsied. Colonoscopy showed diverticulosis and polyps, polypectomy was done. According to the surgeon who performed the procedure, the patient can be resumed on his home dose of Coumadin Patient was seen and evaluated at the bedside this morning, with no new complaints, he denies any chest respiratory or abdominal complaints. INR this morning is 1.4, his renal function is at his baseline, and hemoglobin is stable at 11. The patient will be discharged home with details Lovenox at 200 mg per day for his kidney function, and bridged with warfarin 5 mg daily. Recommend follow-up with primary care for INR check within the next 4-5 days. Plan of care discussed, verbalized understanding. Other chronic medical conditions remained stable throughout admission. Discharge discussed with: patient, family, nurse, social work - Time Spent with Patient Total time spent providing and/or coordinating discharge services: Less than 30 minutes - Discharge Medications Prescriptions: Enoxaparin [Lovenox] 100 mg SQ DAILY #4 syr Psyllium [Metamucil Fiber Singles Packet] 2 packet PO DAILY #60 powd.pack Sucralfate [Carafate] 1 gm PO 0630,1130,2100 #90 tablet Home Medications: Allopurinol [Zyloprim] 100 mg PO DAILY 05/13/15 [History] Aspirin 81 mg PO DAILY 05/13/15 [History] Cholecalciferol (Vitamin D3) [Vitamin D3] 5,000 mg PO DAILY 05/13/15 [History] Losartan [Cozaar] 25 mg PO DAILY 05/13/15 [History] Sertraline HCl [Zoloft] 25 mg PO HS 05/13/15 [History] Simvastatin [Zocor] 20 mg PO HS 05/13/15 [History] Levothyroxine [Synthroid] 50 mcg PO DAILY 11/29/15 [History] Isosorbide MONOnitrate (24 HR) [Imdur] 30 mg PO DAILY #30 tab.er.24h 04/29/16 [ Rx] Albuterol Sulfate [Albuterol Inhaler] 2 puff IH Q4H PRN 30 Days inh 10/21/16 [ Rx] Ferrous Gluconate 324 mg PO DAILY 01/12/17 [History] Sennosides/Docusate Sodium [Senna Plus] 1 tab PO DAILY 01/12/17 [History] Polyethylene Glycol 3350 [MiraLAX] 17 gm PO DAILY #7 powd.pack 11/14/17 [Rx] Fluticasone/Vilanterol [Breo Ellipta 100-25 Mcg INH] 1 puff IH DAILY 01/17/18 [ History] Linaclotide [Linzess] 290 mcg PO DAILY 01/17/18 [History] GuaiFENesin/Dextromethorphan [Robitussin/Dm] 5 ml PO Q4HR PRN udc 01/29/18 [Rx] Ipratropium/Albuterol Neb [Duoneb] 3 ml IH [id number] inhsol 01/29/18 [Rx] Metoprolol [Lopressor] 25 mg PO BID tablet 01/29/18 [Rx] Nystatin POWDER [Nystop] 1 appl TP BID bottle 01/31/18 [Rx] Acetaminophen [Tylenol] 650 mg PO Q6HR PRN tablet 02/09/18 [Rx] Nitroglycerin 0.4 mg SL Q5MIN PRN tab.subl 02/09/18 [Rx] Omeprazole [PriLOSEC] 40 mg PO DAILY@0630 capsule. 02/09/18 [Rx] Warfarin [Coumadin] 5 mg PO DAILY@1800 tablet 02/09/18 [Rx] Furosemide [Lasix] 20 mg PO DAILY 04/24/18 [History] Insulin DETEMIR [Levemir] 60 units SQ HS 04/24/18 [History] Enoxaparin [Lovenox] 100 mg SQ DAILY #4 syr 04/28/18 [Rx] Psyllium [Metamucil Fiber Singles Packet] 2 packet PO DAILY #60 powd.pack [Rx] Sucralfate [Carafate] 1 gm PO 0630,1130,2100 #90 tablet 04/28/18 [Rx] Allergies/Adverse Reactions: 3 Allergy/AdvReac Type Severity Reaction Status Date / Time morphine Allergy Rash Verified 04/24/18 15:14 Date of admission: 04/27/18 13:22 Primary care physician: Fani Davis Discharging clinician: Kaleb Rodriguez Anticipated date of discharge: 04/28/18 - Constitutional Vitals: Temp Pulse Resp BP Pulse Ox 98.1 F 67 20 139/64 95 04/28/18 10:05 04/28/18 10:05 04/28/18 10:05 04/28/18 10:05 04/28/18 10:05 General appearance: Present: cooperative, A&O X 3, pleasant, no acute distress, obese, answers questions appropriately Exam: PHYSICAL EXAMINIATION: GENERAL: Alert, no acute distress, cooperative, A&O x3 EYES: Pupils equal and reactive, sclera anicteric NECK: No jugulovenous distention, No carotid bruits, Carotid pulse normal contour, Supple LUNGS: Lungs clear to auscultation, Good diaphragmatic excursion CARDIAC: Normal S1 and S2; no rubs, murmurs, or gallops ABDOMEN: Abdomen soft, non-tender, BS normal, No masses or organomegaly EXTREMITIES: Extremities normal, no deformities, edema, clubbing or skin discoloration. Good capillary refill., No ulcers PSYCHIATRIC: Normal mood and affect SKIN: Dry and intact - Patient Status Disposition: Home Health Service Condition: Good Functional capacity at discharge: independent ambulation Overall status at discharge: patient is progressing back to baseline - Discharge Instructions Follow Up With: Fani Davis [Primary Care Provider] - - Diet and Activity Activity: resume usual activities as tolerated Diet: diabetic diet, low fat, low cholesterol, low salt diet - VTE Documentation of Mechanical Device: Intermittent pneumatic compression device
[2018-04-28] MEDS ORDERED: Sucralfate 1 GM TABLET PO SCH (11:30)
[2018-04-28 11:51] LABS: INR 1.4; Prothrombin Time 16.1 Seconds (9.4-12.1)
[2018-04-28] MEDS ORDERED: *HR* Enoxaparin 100 MG/ML SYRINGE SQ SCH (12:45)
[2018-04-28 12:58] LABS: IFE Reflexed NOT DONE
== END 2018-04-28 14:08 | disposition home health service (06) | DRG 378 ==
LOC: 3ANU 15:13 → EMEROO 15:13 → SUATTDRO 17:43 → 3ANU 19:30
PROVIDERS: ADMIT Internal Medicine; ATTEND Internal Medicine
PROC: ENDOCBX (2018-04-27 17:30)
PROC: ENDOEBX (2018-04-27 17:30)

== ENCOUNTER 2019-01-26 17:50 | Inpatient (IN) ==
[2019-01-26] MEDS ORDERED: Ipratropium/Albuterol Neb 3 ML IH ONE (18:55)
[2019-01-26] MEDS ORDERED: methylPREDNISolone 125 MG/2 ML VIAL IVP ONE (18:56)
--- NOTE | 2019-01-26 19:03 | Emergency Department Note ---
Disposition Clinical Impression: COPD exacerbation Disposition: Admitted As Inpatient Condition: Undetermined Referrals: Fani Davis [Primary Care Provider] - Forms: ED Satisfaction Letter Time of Disposition: 20:37 General Adult HPI - General Chief complaint: ED Weakness Stated complaint: Weakness; MOUSTAPHA Time Seen by Provider: 01/26/19 18:27 Source: patient Mode of arrival: ambulatory Limitations: no limitations Nursing Notes Reviewed: Yes Vital Signs Reviewed: Yes - History of Present Illness HPI Narrative: 88-year-old male with history of COPD, PE, DVT on warfarin arrives to the emergency department with complaint of shortness of breath. Patient states he is been unable to use his nebulizers properly which is a common trend for the patient. He has no associated chest pain, unilateral excellent, hemoptysis, recent surgeries or immobilizations. The patient states this feels like his previous COPD exacerbation. The patient was escorted by the patient's son who agrees with this. The patient has audible wheezing without a stethoscope and is in no acute distress but is mildly tachypneic. The patient's pulse ox was noted to be 91% upon triage room air. He is able to ambulate without difficulty. Denies any other complaints at this time. Pain Scale: 0 - Related Data Home Medications Medication Instructions Recorded Confirmed Allopurinol [Zyloprim] 100 mg PO DAILY 05/13/15 12/25/18 Aspirin 81 mg PO DAILY 05/13/15 12/25/18 Cholecalciferol (Vitamin D3) 5,000 mg PO DAILY 05/13/15 12/25/18 [Vitamin D3] Losartan [Cozaar] 25 mg PO DAILY 05/13/15 12/25/18 Sertraline HCl [Zoloft] 25 mg PO HS 05/13/15 12/25/18 Simvastatin [Zocor] 20 mg PO HS 05/13/15 12/25/18 Levothyroxine [Synthroid] 50 mcg PO DAILY 11/29/15 12/25/18 Ferrous Gluconate 324 mg PO DAILY 01/12/17 12/25/18 Sennosides/Docusate Sodium [Senna 1 tab PO DAILY 01/12/17 12/25/18 Plus] Furosemide [Lasix] 20 mg PO DAILY 04/24/18 12/25/18 Insulin ASPART [Novolog Flexpen] 25 unit SQ BID 12/25/18 12/25/18 Insulin Degludec [Tresiba] 60 - 62 unit SQ HS 12/25/18 12/25/18 Metoprolol [Lopressor] 50 mg PO BID 12/25/18 12/25/18 Multivits,Ca,Min/Iron/FA/Lycop 1 tab PO DAILY 12/25/18 12/25/18 [Centrum Men's Tablet] Pantoprazole Sodium [Protonix] 40 mg PO DAILY 12/25/18 12/25/18 Ranitidine HCl [Heartburn Relief] 150 mg PO DAILY 12/25/18 12/25/18 Vitamin E 400 unit PO DAILY 12/25/18 12/25/18 Previous Rx's Medication Instructions Recorded Isosorbide MONOnitrate (24 HR) 30 mg PO DAILY #30 tab.er.24h 04/29/16 [Imdur] Warfarin [Coumadin] 5 mg PO DAILY@1800 tablet 02/09/18 Allergies Allergy/AdvReac Type Severity Reaction Status Date / Time morphine Allergy Rash Verified 01/26/19 19:30 All systems ED: reviewed and negative except as stated. Constitutional: Reports: weakness. Denies: fever, chills ENT ED: Denies: dysphagia Cardiovascular: Reports: dyspnea on exertion. Denies: chest pain, palpitations Respiratory: Reports: dyspnea, wheezes. Denies: cough, hemoptysis, sputum production Gastrointestinal: Denies: abdominal pain, nausea, vomiting Genitourinary: Denies: urgency, dysuria Musculoskeletal: Denies: back pain Integumentary: Denies: rash Past Medical History - Past Medical History Attestation: Yes The following information was validated with the patient. Source: patient, old records reviewed Medical history: Reports: cancer, CHF, COPD, coronary artery disease, DVT, diabetes, hyperlipidemia, hypertension, kidney stones, myocardial infarction, pulmonary embolus, renal disease, other Surgical history: Reports: cholecystectomy, herniorrhaphy, IVC Filter, other Psychiatric history: Reports: depression - Social History Smoking Status: Former smoker Smokeless Tobacco Status: No Alcohol use: Reports: none Drug use: Reports: none Physical Exam - General Limitations: no limitations General appearance: alert, in no apparent distress - Head Head exam: atraumatic, normocephalic, normal inspection - Eye Eye exam: Present: normal appearance, PERRL, EOMI - ENT ENT exam: normal exam, normal oropharynx, mucous membranes moist - Neck Neck exam: Present: normal inspection, full ROM, trachea midline - Chest Chest inspection: Present: normal inspection, symmetric chest wall rise - Respiratory Respiratory exam: Present: wheezes (moderate diffuse) - Cardiovascular Cardiovascular exam: Present: regular rate, normal rhythm, normal heart sounds - Abdominal Exam Abdominal exam: Present: soft, Non-Tender. Absent: tenderness, distention, guarding, rebound, rigidity - Extremities Exam Extremities exam: Present: normal inspection, full ROM, normal capillary refill. Absent: tenderness, pedal edema - Neurological Exam Neurological exam: Present: alert, oriented X3 - Skin Skin exam: Present: warm, dry, intact, normal color Course Vital Signs Temperature 98.5 F 01/26/19 18:14 Pulse Rate 80 01/26/19 18:14 Respiratory Rate 20 01/26/19 18:14 Blood Pressure 153/80 01/26/19 18:14 O2 Sat by Pulse Oximetry 91 01/26/19 18:14 Temperature 98.3 F 01/26/19 19:36 Pulse Rate 76 01/26/19 19:36 Respiratory Rate 24 01/26/19 19:36 Blood Pressure 164/89 01/26/19 19:36 O2 Sat by Pulse Oximetry 97 01/26/19 19:36 Oxygen Delivery Oxygen Delivery Nasal Cannula Medical Decision Making - [facility] Narrative Medical decision making narrative: Patient's workup in the emergency department demonstrate findings consistent with a COPD exacerbation. The patient is still wheezing on auscultation and will have repeat albuterol. Patient was administered site and Medrol. Patient was given azithromycin as well. Given the patient's continued wheezing and symptoms, the patient's son electrical progression going home and we will admit the patient to the hospital at this time for further observation and care. Patient made aware and agrees to plan. No further questions or concerns noted this time. Accepted by Dr. Anne. - Lab Data Lab results reviewed: Yes I reviewed the patient's lab results. Result diagrams: 01/26/19 19:15 01/26/19 19:15 Lab Results 01/26/19 01/26/19 01/26/19 Range/Units 19:15 19:15 19:15 WBC 10.1 (4.3-11.1) K/mcL RBC 4.59 (4.19-5.50) M/mcL Hgb 13.8 (12.9-16.9) g/dL Hct 43.7 (37.5-50.1) % MCV 95.2 (83.0-100.0) fL MCH 30.1 (28.0-33.3) pg MCHC 31.6 (31.6-35.5) g/dL RDW 16.7 H (11.5-14.5) % Plt Count 212 (140-400) K/mcL MPV 11.4 (9.4-12.4) fL Immature Gran % 0.6 (0-4) % Seg Neutrophils % 64.8 % Lymphocytes % 18.2 % Monocytes % 6.5 % Eosinophils % 9.1 % Basophils % 0.8 % Neutrophils # 6.5 (1.6-8.9) K/mcL Lymphocytes # 1.8 (0.6-4.6) K/mcL Monocytes # 0.7 (0.0-1.3) K/mcL Eosinophils # 0.9 H (0.0-0.6) K/mcL Basophils # 0.1 (0.0-0.2) K/mcL PT 22.5 H (9.4-12.1) Seconds INR 2.0 APTT 46.4 H (26.0-36.0) Seconds Sodium 140 (136-145) mEq/L Potassium 4.4 (3.5-5.1) mEq/L Chloride 104 (98-107) mEq/L Carbon Dioxide 26 (23-29) mEq/L BUN 34 H (8-23) mg/dL Creatinine 2.41 H (0.70-1.30) mg/dL Est GFR ( Amer) 31 L (> 60) Est GFR (Non-Af Amer) 26 L (> 60) BUN/Creatinine Ratio 14 (6-26) Glucose 247 H (70-105) mg/dL Calculated Osmolality 306 H (280-300) Lactic Acid (0.5-2.2) mmol/L Calcium 9.3 (8.6-10.3) mg/dL Troponin I < 0.03 (< 0.04) ng/mL B-Natriuretic Peptide (Less than 100) pg/mL Urine Color (Yellow) Urine Clarity (Clear) Urine pH (5.0-8.0) pH Units Ur Specific Fate (1.010-1.025) Urine Protein (Neg-Trace) mg/dL Urine Glucose (UA) (Normal) mg/dL Urine Ketones (Negative) mg/dL Urine Blood (Negative) Urine Nitrite (Negative) Urine Bilirubin (Negative) Urine Urobilinogen (Normal) mg/dL Ur Leukocyte Esterase (Negative) Ur Culture Indicated? (NO) 01/26/19 01/26/19 01/26/19 Range/Units 19:15 19:15 19:52 WBC (4.3-11.1) K/mcL RBC (4.19-5.50) M/mcL Hgb (12.9-16.9) g/dL Hct (37.5-50.1) % MCV (83.0-100.0) fL MCH (28.0-33.3) pg MCHC (31.6-35.5) g/dL RDW (11.5-14.5) % Plt Count (140-400) K/mcL MPV (9.4-12.4) fL Immature Gran % (0-4) % Seg Neutrophils % % Lymphocytes % % Monocytes % % Eosinophils % % Basophils % % Neutrophils # (1.6-8.9) K/mcL Lymphocytes # (0.6-4.6) K/mcL Monocytes # (0.0-1.3) K/mcL Eosinophils # (0.0-0.6) K/mcL Basophils # (0.0-0.2) K/mcL PT (9.4-12.1) Seconds INR APTT (26.0-36.0) Seconds Sodium (136-145) mEq/L Potassium (3.5-5.1) mEq/L Chloride (98-107) mEq/L Carbon Dioxide (23-29) mEq/L BUN (8-23) mg/dL Creatinine (0.70-1.30) mg/dL Est GFR ( Amer) (> 60) Est GFR (Non-Af Amer) (> 60) BUN/Creatinine Ratio (6-26) Glucose (70-105) mg/dL Calculated Osmolality (280-300) Lactic Acid 1.6 (0.5-2.2) mmol/L Calcium (8.6-10.3) mg/dL Troponin I (< 0.04) ng/mL B-Natriuretic Peptide 56 (Less than 100) pg/mL Urine Color Yellow (Yellow) Urine Clarity Clear (Clear) Urine pH 5.5 (5.0-8.0) pH Units Ur Specific Fate 1.016 (1.010-1.025) Urine Protein Trace (Neg-Trace) mg/dL Urine Glucose (UA) Normal (Normal) mg/dL Urine Ketones Negative (Negative) mg/dL Urine Blood Negative (Negative) Urine Nitrite Negative (Negative) Urine Bilirubin Negative (Negative) Urine Urobilinogen Normal (Normal) mg/dL Ur Leukocyte Esterase Negative (Negative) Ur Culture Indicated? NO (NO) - Radiology Data Radiology results reviewed: Yes I reviewed the patient's radiology results. Chest X-Ray 01/26/19 18:28 IMPRESSION: Stable portable study. D/ / Dora Maldonado Cha, MD / Dora Maldonado Cha, MD Interpreting Provider: Dora Maldonado Cha, MD Attestation Statement - Attestation Attestation: I, Demetri Horan DO, examined this patient [id number] and my medical decision-making was reviewed with Herber Schulz DO, Resident Physician. I agree with the documented findings, disposition and treatment plan as described except to the extent set forth below. I personally supervised and was present for the morrissey/critical portions of the procedures completed by the resident documented below. Please see my progress notes for details.
[2019-01-26 19:30] LABS: Basophils # 0.1 K/mcL (0.0-0.2); Basophils % 0.8 %; Eosinophils # 0.9 K/mcL (0.0-0.6); Eosinophils % 9.1 %; Hematocrit 43.7 % (37.5-50.1); Hemoglobin 13.8 g/dL (12.9-16.9); Immature Granulocytes % 0.6 % (0-4); Lymphocytes # 1.8 K/mcL (0.6-4.6); Lymphocytes % 18.2 %; Mean Corpuscular HGB Conc 31.6 g/dL (31.6-35.5); Mean Corpuscular Hemoglobin 30.1 pg (28.0-33.3); Mean Corpuscular Volume 95.2 fL (83.0-100.0); Mean Platelet Volume 11.4 fL (9.4-12.4); Monocytes # 0.7 K/mcL (0.0-1.3); Monocytes % 6.5 %; Neutrophils # 6.5 K/mcL (1.6-8.9); Platelet Count 212 K/mcL (140-400); Red Blood Count 4.59 M/mcL (4.19-5.50); Red Cell Distribution Width 16.7 % (11.5-14.5); Segmented Neutrophils % 64.8 %
[2019-01-26 19:38] LABS: Prothrombin Time 22.5 Seconds (9.4-12.1)
[2019-01-26 19:41] LABS: Activated Partial Thrombo Time 46.4 Seconds (26.0-36.0)
--- NOTE | 2019-01-26 19:43 | Emergency Department Note ---
Disposition Clinical Impression: COPD exacerbation Disposition: Admitted As Inpatient Condition: Fair Time of Disposition: 21:41 General Adult HPI - General Chief complaint: ED Shortness of Breath/Dyspnea Stated complaint: Weakness; MOUSTAPHA Time Seen by Provider: 01/26/19 18:27 Source: patient Mode of arrival: ambulatory Limitations: no limitations - History of Present Illness Pain Scale: 0 - Related Data Home Medications Medication Instructions Recorded Confirmed Allopurinol [Zyloprim] 100 mg PO DAILY 05/13/15 12/25/18 Aspirin 81 mg PO DAILY 05/13/15 12/25/18 Cholecalciferol (Vitamin D3) 5,000 mg PO DAILY 05/13/15 12/25/18 [Vitamin D3] Losartan [Cozaar] 25 mg PO DAILY 05/13/15 12/25/18 Sertraline HCl [Zoloft] 25 mg PO HS 05/13/15 12/25/18 Simvastatin [Zocor] 20 mg PO HS 05/13/15 12/25/18 Levothyroxine [Synthroid] 50 mcg PO DAILY 11/29/15 12/25/18 Ferrous Gluconate 324 mg PO DAILY 01/12/17 12/25/18 Sennosides/Docusate Sodium [Senna 1 tab PO DAILY 01/12/17 12/25/18 Plus] Furosemide [Lasix] 20 mg PO DAILY 04/24/18 12/25/18 Insulin ASPART [Novolog Flexpen] 25 unit SQ BID 12/25/18 12/25/18 Insulin Degludec [Tresiba] 60 - 62 unit SQ HS 12/25/18 12/25/18 Metoprolol [Lopressor] 50 mg PO BID 12/25/18 12/25/18 Multivits,Ca,Min/Iron/FA/Lycop 1 tab PO DAILY 12/25/18 12/25/18 [Centrum Men's Tablet] Pantoprazole Sodium [Protonix] 40 mg PO DAILY 12/25/18 12/25/18 Ranitidine HCl [Heartburn Relief] 150 mg PO DAILY 12/25/18 12/25/18 Vitamin E 400 unit PO DAILY 12/25/18 12/25/18 Previous Rx's Medication Instructions Recorded Isosorbide MONOnitrate (24 HR) 30 mg PO DAILY #30 tab.er.24h 04/29/16 [Imdur] Warfarin [Coumadin] 5 mg PO DAILY@1800 tablet 02/09/18 Allergies Allergy/AdvReac Type Severity Reaction Status Date / Time morphine Allergy Rash Verified 01/26/19 19:30 Constitutional: Reports: weakness. Denies: fever, chills ENT ED: Denies: dysphagia Cardiovascular: Reports: dyspnea on exertion. Denies: chest pain, palpitations Respiratory: Reports: dyspnea, wheezes. Denies: cough, hemoptysis, sputum production Gastrointestinal: Denies: abdominal pain, nausea, vomiting Genitourinary: Denies: urgency, dysuria Musculoskeletal: Denies: back pain Integumentary: Denies: rash Past Medical History - Past Medical History Medical history: Reports: cancer, CHF, COPD, coronary artery disease, DVT, diabetes, hyperlipidemia, hypertension, kidney stones, myocardial infarction, pulmonary embolus, renal disease, other Surgical history: Reports: cholecystectomy, herniorrhaphy, IVC Filter, other Psychiatric history: Reports: depression - Social History Smoking Status: Former smoker Smokeless Tobacco Status: No Alcohol use: Reports: none Drug use: Reports: none Physical Exam - General Limitations: no limitations General appearance: alert, in no apparent distress Course Vital Signs Temperature 98.5 F 01/26/19 18:14 Pulse Rate 80 01/26/19 18:14 Respiratory Rate 20 01/26/19 18:14 Blood Pressure 153/80 01/26/19 18:14 O2 Sat by Pulse Oximetry 91 01/26/19 18:14 Temperature 98.3 F 01/26/19 19:36 Pulse Rate 76 01/26/19 20:30 Respiratory Rate 16 01/26/19 20:55 Blood Pressure 169/77 01/26/19 20:30 O2 Sat by Pulse Oximetry 98 01/26/19 20:55 Oxygen Delivery Oxygen Delivery Nasal Cannula Medical Decision Making - Lab Data Result diagrams: 01/26/19 19:15 01/26/19 19:15 Lab Results 01/26/19 01/26/19 01/26/19 Range/Units 19:15 19:15 19:15 WBC 10.1 (4.3-11.1) K/mcL RBC 4.59 (4.19-5.50) M/mcL Hgb 13.8 (12.9-16.9) g/dL Hct 43.7 (37.5-50.1) % MCV 95.2 (83.0-100.0) fL MCH 30.1 (28.0-33.3) pg MCHC 31.6 (31.6-35.5) g/dL RDW 16.7 H (11.5-14.5) % Plt Count 212 (140-400) K/mcL MPV 11.4 (9.4-12.4) fL Immature Gran % 0.6 (0-4) % Seg Neutrophils % 64.8 % Lymphocytes % 18.2 % Monocytes % 6.5 % Eosinophils % 9.1 % Basophils % 0.8 % Neutrophils # 6.5 (1.6-8.9) K/mcL Lymphocytes # 1.8 (0.6-4.6) K/mcL Monocytes # 0.7 (0.0-1.3) K/mcL Eosinophils # 0.9 H (0.0-0.6) K/mcL Basophils # 0.1 (0.0-0.2) K/mcL PT 22.5 H (9.4-12.1) Seconds INR 2.0 APTT 46.4 H (26.0-36.0) Seconds Sodium 140 (136-145) mEq/L Potassium 4.4 (3.5-5.1) mEq/L Chloride 104 (98-107) mEq/L Carbon Dioxide 26 (23-29) mEq/L BUN 34 H (8-23) mg/dL Creatinine 2.41 H (0.70-1.30) mg/dL Est GFR ( Amer) 31 L (> 60) Est GFR (Non-Af Amer) 26 L (> 60) BUN/Creatinine Ratio 14 (6-26) Glucose 247 H (70-105) mg/dL Calculated Osmolality 306 H (280-300) Lactic Acid (0.5-2.2) mmol/L Calcium 9.3 (8.6-10.3) mg/dL Troponin I < 0.03 (< 0.04) ng/mL B-Natriuretic Peptide (Less than 100) pg/mL Urine Color (Yellow) Urine Clarity (Clear) Urine pH (5.0-8.0) pH Units Ur Specific Buckner (1.010-1.025) Urine Protein (Neg-Trace) mg/dL Urine Glucose (UA) (Normal) mg/dL Urine Ketones (Negative) mg/dL Urine Blood (Negative) Urine Nitrite (Negative) Urine Bilirubin (Negative) Urine Urobilinogen (Normal) mg/dL Ur Leukocyte Esterase (Negative) Ur Culture Indicated? (NO) 01/26/19 01/26/19 01/26/19 Range/Units 19:15 19:15 19:52 WBC (4.3-11.1) K/mcL RBC (4.19-5.50) M/mcL Hgb (12.9-16.9) g/dL Hct (37.5-50.1) % MCV (83.0-100.0) fL MCH (28.0-33.3) pg MCHC (31.6-35.5) g/dL RDW (11.5-14.5) % Plt Count (140-400) K/mcL MPV (9.4-12.4) fL Immature Gran % (0-4) % Seg Neutrophils % % Lymphocytes % % Monocytes % % Eosinophils % % Basophils % % Neutrophils # (1.6-8.9) K/mcL Lymphocytes # (0.6-4.6) K/mcL Monocytes # (0.0-1.3) K/mcL Eosinophils # (0.0-0.6) K/mcL Basophils # (0.0-0.2) K/mcL PT (9.4-12.1) Seconds INR APTT (26.0-36.0) Seconds Sodium (136-145) mEq/L Potassium (3.5-5.1) mEq/L Chloride (98-107) mEq/L Carbon Dioxide (23-29) mEq/L BUN (8-23) mg/dL Creatinine (0.70-1.30) mg/dL Est GFR ( Amer) (> 60) Est GFR (Non-Af Amer) (> 60) BUN/Creatinine Ratio (6-26) Glucose (70-105) mg/dL Calculated Osmolality (280-300) Lactic Acid 1.6 (0.5-2.2) mmol/L Calcium (8.6-10.3) mg/dL Troponin I (< 0.04) ng/mL B-Natriuretic Peptide 56 (Less than 100) pg/mL Urine Color Yellow (Yellow) Urine Clarity Clear (Clear) Urine pH 5.5 (5.0-8.0) pH Units Ur Specific Buckner 1.016 (1.010-1.025) Urine Protein Trace (Neg-Trace) mg/dL Urine Glucose (UA) Normal (Normal) mg/dL Urine Ketones Negative (Negative) mg/dL Urine Blood Negative (Negative) Urine Nitrite Negative (Negative) Urine Bilirubin Negative (Negative) Urine Urobilinogen Normal (Normal) mg/dL Ur Leukocyte Esterase Negative (Negative) Ur Culture Indicated? NO (NO) Attestation Statement - Attestation Attestation: I, Demetri Horan DO, examined this patient [id number] and my medical decision-making was reviewed with Herber Schulz DO, Resident Physician. I agree with the documented findings, disposition and treatment plan as described except to the extent set forth below. I personally supervised and was present for the morrissey/critical portions of the procedures completed by the resident documented below. Please see my progress notes for details. 88-year-old male presents emergency room from home for increased work of breathing, wheezing, shortness of breath with conversation. Currently, he is denying chest pain. Denies any fevers or chills. He has not had any headache or vision change. Denies any falls trauma or injury. Patient does have inhalers at home but otherwise does not use oxygen. Patient is a known history of COPD. He does not have any history of congestive heart failure or myocardial infarction. Vital signs are stable. Patient has acutely tachypnea and short of breath. Patient does have diffuse wheezing with accessory muscle use on examination. He does appear to be consistent with acute COPD exacerbation. Heart is regular. Abdomen is soft nontender nondistended with no pulsatile masses or lesions. Has no guarding or rigidity. No peritoneal symptoms. Mild pitting edema in the bilateral lower extremities but otherwise no other acute findings. Pulses are intact. Patient does not show any acute signs of ataxia or abnormality. Patient will be provided with breathing treatments steroids and antibiotics as needed. Chest x-ray EKG CBC chemistry and troponin will be collected at this time. Patient was symptomatic control and disposition determined. He is denying chest pain at this point but there is significant increased work of breathing. See detailed documentation the physical exam, medical intervention, medical decision-making and disposition in the resident physician's note. No critical care applied the patient's treatment course at this time 2000 Patient has some mild relief of the symptoms with his wheezing worse that he was before. Vital signs remain stable. Concern is noted for failed outpatient management of known COPD with possible bronchitis. Patient will be provided with azithromycin blood cultures will be ordered and the patient will have another set of breathing treatments started here in the emergency department for admission. Patient is otherwise clinically stable. [id number] Patient was discussed with the hospitals. EKG was reviewed including normal sinus rhythm with no acute signs of ST segment elevation. Is was reviewed directly with resident physician. Otherwise the workup has been unremarkable outside a symptomatic control COPD exacerbation. The hospitalist Dr. Anne reviewed the case at length. No other recommendations or concerns. The patient will be admitted to the hospital for continuation of care and management. Patient will be monitored here in the emergency department until admission process is completed.
[2019-01-26 19:51] LABS: BUN/Creatinine Ratio 14 (6-26); Blood Urea Nitrogen 34 mg/dL (8-23); Calcium 9.3 mg/dL (8.6-10.3); Carbon Dioxide 26 mEq/L (23-29); Chloride 104 mEq/L (98-107); Glucose 247 mg/dL (70-105); Osmolality,Calculated 306 (280-300); Potassium 4.4 mEq/L (3.5-5.1); Sodium 140 mEq/L (136-145); Troponin I < 0.03 ng/mL (< 0.04); eGFR For Non-African Americans 26 (> 60)
[2019-01-26 20:02] LABS: Bilirubin,Urine Negative (Negative); Blood,Urine Negative (Negative); Clarity,Urine Clear (Clear); Color,Urine Yellow (Yellow); Glucose,Urine (UA) Normal (Normal); Ketones,Urine Negative (Negative); Leukocyte Esterase,Urine Negative (Negative); Nitrite,Urine Negative (Negative); PH,Urine 5.5 pH Units (5.0-8.0); Protein,Urine Trace mg/dL (Neg-Trace); Specific Gravity,Urine 1.016 (1.010-1.025); Urobilinogen,Urine Normal (Normal)
[2019-01-26] MEDS ORDERED: Albuterol 2.5 MG/3 ML NEBULIZER IH ONE (20:13)
[2019-01-26] MEDS ORDERED: Azithromycin 500 MG in D5% in Water 250 ML IVPB ONE (20:14)
[2019-01-27] MEDS ORDERED: Naloxone 0.4 MG/ML INJ IVP PRN (00:56)
[2019-01-27] MEDS ORDERED: D5% in Water 1,000 ML IVC PRN (00:58)
[2019-01-27] MEDS ORDERED: *HR* Dextrose 50 % in Water (Syg) 50 ML SYRINGE IVP PRN (00:58)
[2019-01-27] MEDS ORDERED: Dextrose Gel 15 GM/37.5 ML TUBE PO PRN ×2 (00:58)
--- NOTE | 2019-01-27 01:29 | Internal Med History&Physical ---
Date of Encounter: 01/27/19 Time of Encounter: 00:00 Internal Medicine - H&P: HPI Chief complaint: Shortness of breath Admitted From: Home Plans for Post Hospital Care: Home History of present illness: Mr. Colon is a 88 year old male with past medical history significant for CAD with stents, PE/DVT with IVC filter and coumadin, CHF, hyperlipidemia, hypterension, COPD, diabetes, chronic kidney disease, thyroid disease, kidney stones, cancer, depression, and hearing loss who presents from home for complaints of shortness of breath, wheezing, and non productive cough getting progressively worse over past two days. HPI somewhat limited due to patient being significantly hard of hearing. States symptoms are worse with activity but denies any alleviating factors. Wears home 02 as needed. Son reported to nurse that home oxygen saturations range from upper 80's to lower 90's. Reports being seen 2 days ago by PCP for same and started on medication that he thinks was an antibiotic but is unsure. Due to symptoms continuing to worsen came to ER for further evaluation. Denies any headache, fever, chills, chest pain, sputum production, abdominal pain, bowel or bladder changes. ER obtained chest xray which showed stable portable study. ER reported EKG as sinus rhythm with no acute ST segment elevation. After receiving steroids, breathing treatment, and antibiotics in ER patient reports improvement in his symptoms. Denies regularly checking blood sugars at home and is unsure what they have been averaging. Reports intermittently checking blood pressures at home with systolic averaging in the 140's. Follows regularly with PCP every three months, cardiology and nephrology annually. Patient has previous DNRCCA document which was verified by nurse with patient son who is POA. Past Med Surg Social Fam HX - Past Medical History Medical history: cancer, CHF, COPD, coronary artery disease, DVT, diabetes, hyperlipidemia, hypertension, kidney stones, myocardial infarction, pulmonary embolus, renal disease, thyroid disease, other Additional medical history: Skin cancer. CKD 4 Psychiatric history: depression - Past Surgical History Surgical History: cancer surgery, cholecystectomy Additional surgical history: jose filter. back sx. Skin cancer on face removed X2 - Social History Smoking Status: Former smoker Smokeless Tobacco Status: No Alcohol use: none Drug use: none - Family History Brother Family Member Ethnicity: Non- Living Status: Hx Family Cardiac Disorders: Yes (ND, CAD) Hx Family Endocrine Disorder: Yes (DM) Mother Family Member Ethnicity: Non- Living Status: Hx Family Cardiac Disorders: Yes (ND, CAD) Sister Family Member Ethnicity: Non- Living Status: Father Family Member Ethnicity: Non- Living Status: Hx Family Cardiac Disorders: No Hx Family Respiratory Disorders: Yes (PNA) Hx Family Cancer: No Hx Family GI Disorders: No Hx Family Endocrine Disorder: No Hx Family Neuromuscular Disorders: No Hx Family Neurologic Disorders: No Hx Family HEENT Disorders: No Hx Family Autoimmune Disorders: No Internal Medicine - H&P: Meds Allopurinol [Zyloprim] 100 mg PO DAILY 05/13/15 [History] Aspirin 81 mg PO DAILY 05/13/15 [History] Cholecalciferol (Vitamin D3) [Vitamin D3] 5,000 mg PO DAILY 05/13/15 [History] Losartan [Cozaar] 25 mg PO DAILY 05/13/15 [History] Sertraline HCl [Zoloft] 25 mg PO HS 05/13/15 [History] Simvastatin [Zocor] 20 mg PO HS 05/13/15 [History] Levothyroxine [Synthroid] 50 mcg PO QAM 11/29/15 [History] Isosorbide MONOnitrate (24 HR) [Imdur] 30 mg PO DAILY #30 tab.er.24h 04/29/16 [Rx] Ferrous Gluconate 324 mg PO DAILY 01/12/17 [History] Sennosides/Docusate Sodium [Senna Plus] 1 tab PO QPM 01/12/17 [History] Furosemide [Lasix] 20 mg PO DAILY 04/24/18 [History] Insulin ASPART [Novolog Flexpen] 25 unit SQ BID 12/25/18 [History] Insulin Degludec [Tresiba] 60 unit SQ HS 12/25/18 [History] Metoprolol [Lopressor] 50 mg PO BID 12/25/18 [History] Multivits,Ca,Min/Iron/FA/Lycop [Centrum Men's Tablet] 1 tab PO DAILY 12/25/18 [History] Pantoprazole Sodium [Protonix] 40 mg PO DAILY 12/25/18 [History] Ranitidine HCl [Heartburn Relief] 150 mg PO DAILY 12/25/18 [History] Vitamin E 400 unit PO DAILY 12/25/18 [History] Warfarin Sodium 2.5 mg PO JOHNSON 01/26/19 [History] Warfarin [Coumadin] 5 mg PO [id number] 01/26/19 [History] Allergy/AdvReac Type Severity Reaction Status Date / Time morphine Allergy Rash Verified 01/26/19 19:30 All Systems PM: A 10-system review of systems was performed and is negative for pertinent findings except as documented above in the HPI. - Constitutional Vitals: Temp Pulse Resp BP Pulse Ox 98.7 F 78 15 132/79 96 01/26/19 23:10 01/26/19 23:10 01/26/19 23:10 01/26/19 23:10 01/26/19 23:10 Exam: General: Alert and oriented. Very hard of hearing. Skin:Normal color, no rash, no lesions. HEENT:Pupils equal, round and reactive. Cardiovascular:Heart sounds distant, no rubs, murmurs or gallops. No JVD. Pulse regular. Lungs:Breath sounds decreased, with wheezes noted bilaterally. Abdomen:Soft, non-tender, no rigidity. Extremities:No deformity,tenderness, joint swelling, or clubbing. 1+ pitting edema noted to bilateral lower extremities. Left lower extremity larger than right, which is chronic per patient. Neurological:Normal cognition and motor skills. Pulses:Carotid and radial pulses normal +2. Rest of the physical exam is non contributory. Internal Med - H&P Results - Labs CBC & Chem 7: 01/26/19 19:15 01/26/19 19:15 Labs: Short CBC 01/26/19 Range/Units 19:15 WBC 10.1 (4.3-11.1) K/mcL Hgb 13.8 (12.9-16.9) g/dL Hct 43.7 (37.5-50.1) % Plt Count 212 (140-400) K/mcL Neutrophils # 6.5 (1.6-8.9) K/mcL BMP 01/26/19 19:15 Sodium 140 Potassium 4.4 Chloride 104 Carbon Dioxide 26 BUN 34 H Creatinine 2.41 H Glucose 247 H Calcium 9.3 Cardiac Enzymes 01/26/19 Range/Units 19:15 Troponin I < 0.03 (< 0.04) ng/mL Urine 01/26/19 Range/Units 19:52 Urine Color Yellow (Yellow) Urine Clarity Clear (Clear) Urine pH 5.5 (5.0-8.0) pH Units Ur Specific [place] 1.016 (1.010-1.025) Urine Protein Trace (Neg-Trace) mg/dL Urine Glucose (UA) Normal (Normal) mg/dL - Impressions ITS Impressions Chest X-Ray 01/26/19 18:28 IMPRESSION: Stable portable study. D/ / Dora Maldonado Cha, MD / Dora Maldonado Cha, MD Interpreting Provider: Dora Maldonado Cha, MD - Assessment and Plan (1) Shortness of breath Current Visit: Yes Status: Acute Assessment and plan: Likely secondary to COPD exacerbation. Reports improvement following steroids, breathing treatment, and antibiotics received in ER. Further work up warranted if doesn't continue to improve with COPD exacerbation treatment. Continuous cardiac monitoring and pulse oximetry. (2) COPD exacerbation Current Visit: Yes Status: Acute Assessment and plan: Recevied duoneb in ER, will continue same scheduled. Received IV steroids in ER, will continue same scheduled. Received Azithromycin in ER, will continue same. Reports possibly being started on antibiotic by PCP 2 days ago but unsure of name and unable to confirm if it was an antibiotic, pharmacy unable to verify, verify with winnie WYNN in a.m. Blood cultures pending. Wears home 02 as needed, currently on 2lpm, titrate down as tolerated. (3) Chronic kidney disease Current Visit: Yes Status: Chronic Assessment and plan: Appears at baseline compared with most recent labs. Avoid nephrotoxins. Repeat labs ordered. Qualifiers: Chronic kidney disease stage: unspecified stage Qualified Code(s): N18.9 - Chronic kidney disease, unspecified (4) Diabetes mellitus Current Visit: Yes Status: Chronic Assessment and plan: Hold home medications. Accucheck ACHS. Sliding scale insulin ordered. Qualifiers: Diabetes mellitus type: type 2 Qualified Code(s): E11.9 - Type 2 diabetes mellitus without complications (5) DVT prophylaxis Current Visit: Yes Status: Acute Assessment and plan: Continue home coumadin, pharmacy to dose. - Time Spent With Patient Total time spent is greater than 50% in coordination of care (as documented) at patient's floor/unit and/or counseling patient:
[2019-01-27] MEDS: GuaiFENesin Liq 200 MG/10 ML UDC PO PRN (03:45)
[2019-01-27] MEDS: Ipratropium/Albuterol Neb 3 ML IH SCH ×5 (04:13→21:04)
[2019-01-27 04:43] LABS: Basophils # 0.1 K/mcL (0.0-0.2); Basophils % 0.6 %; Eosinophils % 0.1 %; Hematocrit 44.6 % (37.5-50.1); Hemoglobin 14.3 g/dL (12.9-16.9); Immature Granulocytes % 0.5 % (0-4); Lymphocytes # 0.7 K/mcL (0.6-4.6); Lymphocytes % 8.6 %; Mean Corpuscular HGB Conc 32.1 g/dL (31.6-35.5); Mean Corpuscular Hemoglobin 30.2 pg (28.0-33.3); Mean Corpuscular Volume 94.1 fL (83.0-100.0); Mean Platelet Volume 11.9 fL (9.4-12.4); Monocytes # 0.1 K/mcL (0.0-1.3); Monocytes % 0.6 %; Neutrophils # 7.6 K/mcL (1.6-8.9); Platelet Count 215 K/mcL (140-400); Red Blood Count 4.74 M/mcL (4.19-5.50); Red Cell Distribution Width 16.4 % (11.5-14.5); Segmented Neutrophils % 89.6 %
[2019-01-27 04:49] LABS: INR 2.1
[2019-01-27 05:03] LABS: Calcium 8.8 mg/dL (8.6-10.3); Potassium 4.8 mEq/L (3.5-5.1)
[2019-01-27] MEDS: methylPREDNISolone 125 MG/2 ML VIAL IVP SCH ×2 (05:36→16:59)
[2019-01-27] MEDS: Insulin LISPRO 300 UNITS/3 ML VIAL SQ SCH ×4 (09:00→20:55)
--- NOTE | 2019-01-27 09:04 | Internal Med Progress Note ---
Hospitalist Progress Note - Encounter Date of Encounter: 01/27/19 Time of Encounter: 08:57 - Subjective Interval History: Seen and examined this morning at bedside. Breathing slightly improved. Difficult to hear. Slightly nauseous. Denies any chest pain. Denies any follow-up bladder complaints. - Exam Vitals: Temp Pulse Resp BP Pulse Ox 98.8 F 83 16 160/82 90 01/27/19 07:40 01/27/19 07:40 01/27/19 07:40 01/27/19 08:27 01/27/19 07:40 Exam: General: In no acute distress. difficult to hearing Respiratory exam: no accessory muscle use, b/l wheezing. Cardiovascular exam: RRR, +S1, +S2. no murmur, gallop, rubs. GI/Abdominal exam: Obese, Non-tender, Non-distended, normal bowel sounds, soft, no peritoneal signs. Extremities exam: 1+ pedal edema, pulses palpable in b/l lower extremities. no calf tenderness Neurological exam: CN II-XII intact, AO X3, no focal deficits. Skin exam: No skin rash - Assessment and Plan (1) COPD exacerbation Current Visit: Yes Status: Acute (2) Shortness of breath Current Visit: Yes Status: Acute (3) Chronic kidney disease Current Visit: Yes Status: Chronic (4) Diabetes mellitus Current Visit: Yes Status: Chronic (5) DVT prophylaxis Current Visit: Yes Status: Acute - Summary of Assessment and Plan Summary of Assessment and Plan: Assessment COPD exacerbation Diabetes History of DVT and PE status post IVC filter CAD CHF, diastolic Hypertension CKD Plan - Continue scheduled due to and IV steroids. Continue empiric azithromycin. Obtain respiratory infectious panel and sputum culture if able to - Start home him do and when necessary hydralazine for elevated blood pressure. We will start beta jaron. Home dose needs to be confirmed - Start levermir at lower dose than home. Will need higher dose given steroid use. - c/w home coumdain and lasix. - Renal function stable - Time Spent with Patient Total time spent is greater than 50% in coordination of care (as documented) at patient's floor/unit and/or counseling patient: Internal Medicine: Result - Labs CBC & Chem 7: 01/27/19 04:09 01/27/19 04:09 Labs: Short CBC 01/26/19 01/27/19 Range/Units 19:15 04:09 WBC 10.1 8.4 (4.3-11.1) K/mcL Hgb 13.8 14.3 (12.9-16.9) g/dL Hct 43.7 44.6 (37.5-50.1) % Plt Count 212 215 (140-400) K/mcL Neutrophils # 6.5 7.6 (1.6-8.9) K/mcL BMP 01/26/19 01/27/19 19:15 04:09 Sodium 140 137 Potassium 4.4 4.8 Chloride 104 105 Carbon Dioxide 26 21 L BUN 34 H 35 H Creatinine 2.41 H 2.42 H Glucose 247 H 390 H Calcium 9.3 8.8 Cardiac Enzymes 01/26/19 Range/Units 19:15 Troponin I < 0.03 (< 0.04) ng/mL Urine 01/26/19 Range/Units 19:52 Urine Color Yellow (Yellow) Urine Clarity Clear (Clear) Urine pH 5.5 (5.0-8.0) pH Units Ur Specific [place] 1.016 (1.010-1.025) Urine Protein Trace (Neg-Trace) mg/dL Urine Glucose (UA) Normal (Normal) mg/dL - ABG Interpretation ABG results: PT/INR, D-dimer PT 24.0 Seconds (9.4-12.1) H 01/27/19 04:09 - Impressions Impressions Chest X-Ray 01/26/19 18:28 IMPRESSION: Stable portable study. D/ / Dora Maldonado Cha, MD / Dora Maldonado Cha, MD Interpreting Provider: Dora Maldonado Cha, MD Consult Discharge Plan - Plan Referrals: aFni Davis [Primary Care Provider] - (3) Chronic kidney disease Qualifiers: Chronic kidney disease stage: unspecified stage Qualified Code(s): N18.9 - Chronic kidney disease, unspecified (4) Diabetes mellitus Qualifiers: Diabetes mellitus type: type 2 Qualified Code(s): E11.9 - Type 2 diabetes mellitus without complications
[2019-01-27] MEDS: Insulin DETEMIR 100 UNIT/ML X5UNITS SQ SCH ×2 (11:25→20:52)
[2019-01-27] MEDS: Aspirin 81 MG TAB.CHEW PO SCH (11:26)
[2019-01-27] MEDS: Isosorbide MONOnitrate (24 HR) 30 MG TAB.ER.24H PO SCH (11:26)
[2019-01-27 13:20] LABS: Adenovirus Not Detected (Not Detect); Bordetella Pertussis Not Detected (Not Detect); Chlamydophila pneumoniae Not Detected (Not Detect); Coronavirus 229E Not Detected (Not Detect); Coronavirus HKU1 Not Detected (Not Detect); Coronavirus NL63 Not Detected (Not Detect); Coronavirus OC43 Not Detected (Not Detect); Human Metapneumovirus Not Detected (Not Detect); Human Rhinovirus/Enterovirus Not Detected (Not Detect); Influenza A Subtype 2009 H1 Not Detected (Not Detect); Influenza A Untypeable Not Detected (Not Detect); Influenza B Not Detected (Not Detect); Mycoplasma pneumoniae Not Detected (Not Detect); Parainfluenza Virus 1 Not Detected (Not Detect); Parainfluenza Virus 2 Not Detected (Not Detect); Parainfluenza Virus 3 Not Detected (Not Detect); Parainfluenza Virus 4 Not Detected (Not Detect); Respiratory Syncytial Virus Not Detected (Not Detect)
[2019-01-27] MEDS: Sennosides/Docusate Sodium TABLET PO SCH (17:00)
[2019-01-27] MEDS ORDERED: Warfarin perPT PO PRN (18:00)
[2019-01-27] MEDS ORDERED: *HR* Warfarin 5 MG TABLET PO ONE (18:00)
[2019-01-27] MEDS: Azithromycin 500 MG in D5% in Water 250 ML IVPB SCH (20:53)
[2019-01-28] MEDS: GuaiFENesin Liq 200 MG/10 ML UDC PO PRN (04:18)
[2019-01-28] MEDS: Ipratropium/Albuterol Neb 3 ML IH SCH ×4 (05:05→22:06)
[2019-01-28] MEDS: methylPREDNISolone 125 MG/2 ML VIAL IVP SCH ×2 (05:15→17:58)
[2019-01-28 07:08] LABS: INR 1.7; Prothrombin Time 19.3 Seconds (9.4-12.1)
[2019-01-28] MEDS: Insulin LISPRO 300 UNITS/3 ML VIAL SQ SCH ×4 (08:44→21:25)
[2019-01-28] MEDS: Ondansetron 4 MG/2 ML VIAL IVP PRN ×2 (08:47→23:51)
--- NOTE | 2019-01-28 09:38 | Internal Med Progress Note ---
Hospitalist Progress Note - Encounter Date of Encounter: 01/28/19 Time of Encounter: 09:37 - Subjective Interval History: Is not seen and examined this morning in intensity. No acute overnight events. Breathing improving. Denies new complaint except some scaling between his toe toes. Denies any chest pain abdominal pain omitting and diarrhea. Has some nausea. - Exam Vitals: Temp Pulse Resp BP Pulse Ox 98.5 F 87 16 164/81 92 01/28/19 06:40 01/28/19 06:40 01/28/19 06:40 01/28/19 06:40 01/28/19 06:40 Exam: General: In no acute distress. difficult to hearing Respiratory exam: no accessory muscle use, scattered wheezing. air entry improbev Cardiovascular exam: RRR, +S1, +S2. no murmur, gallop, rubs. GI/Abdominal exam: Obese, Non-tender, Non-distended, normal bowel sounds, soft, no peritoneal signs. Extremities exam: 1+ pedal edema, pulses palpable in b/l lower extremities. no calf tenderness Neurological exam: CN II-XII intact, AO X3, no focal deficits. Skin exam: onychomycosis and some scaling between toes. - Assessment and Plan (1) COPD exacerbation Current Visit: Yes Status: Acute (2) Shortness of breath Current Visit: Yes Status: Acute (3) Chronic kidney disease Current Visit: Yes Status: Chronic (4) Diabetes mellitus Current Visit: Yes Status: Chronic (5) DVT prophylaxis Current Visit: Yes Status: Acute - Summary of Assessment and Plan Summary of Assessment and Plan: Assessment COPD exacerbation Diabetes History of DVT and PE status post IVC filter CAD CHF, diastolic Hypertension CKD onycomycosis Plan - Continue scheduled duonebs. taper IV steroids. Continue empiric azithromycin.RIP negative . sputum culture if able to. Clinically improving - c/w home losartan and prn hydralazine for elevated blood pressure. started on beta jaron for CAD as BP elevated. - c/w levermir , SSI and accuchecks - c/w home coumdain and lasix. - Renal function stable. c/w home lasix - start fluconazole weekly for 4-6 weeks. - Time Spent with Patient Total time spent is greater than 50% in coordination of care (as documented) at patient's floor/unit and/or counseling patient: Internal Medicine: Result - Labs CBC & Chem 7: 01/27/19 04:09 01/27/19 04:09 - ABG Interpretation ABG results: PT/INR, D-dimer PT 19.3 Seconds (9.4-12.1) H 01/28/19 06:23 Consult Discharge Plan - Plan Referrals: Fani Davis [Primary Care Provider] - (3) Chronic kidney disease Qualifiers: Chronic kidney disease stage: unspecified stage Qualified Code(s): N18.9 - Chronic kidney disease, unspecified (4) Diabetes mellitus Qualifiers: Diabetes mellitus type: type 2 Qualified Code(s): E11.9 - Type 2 diabetes mellitus without complications
[2019-01-28] MEDS ORDERED: Fluconazole 100 MG TABLET PO ONE (09:48)
[2019-01-28] MEDS: Insulin DETEMIR 100 UNIT/ML X5UNITS SQ SCH ×2 (12:45→21:24)
[2019-01-28] MEDS: Furosemide 20 MG TABLET PO SCH (12:48)
[2019-01-28] MEDS: Aspirin 81 MG TAB.CHEW PO SCH (12:48)
[2019-01-28] MEDS: Metoprolol XL (24 HR) Succ 25 MG TAB.ER.24H PO SCH (12:48)
[2019-01-28] MEDS: Isosorbide MONOnitrate (24 HR) 30 MG TAB.ER.24H PO SCH (12:48)
[2019-01-28] MEDS ORDERED: Insulin DETEMIR 100 UNIT/ML X5UNITS SQ ONE (17:40)
[2019-01-28] MEDS: Sennosides/Docusate Sodium TABLET PO SCH (17:58)
[2019-01-28] MEDS ORDERED: *HR* Warfarin 5 MG TABLET PO ONE (18:00)
[2019-01-28] MEDS: Azithromycin 500 MG in D5% in Water 250 ML IVPB SCH (21:25)
[2019-01-29] MEDS: Ipratropium/Albuterol Neb 3 ML IH SCH ×4 (04:02→22:28)
[2019-01-29] MEDS: methylPREDNISolone 125 MG/2 ML VIAL IVP SCH ×3 (05:22→21:54)
[2019-01-29 06:54] LABS: INR 2.2; Prothrombin Time 24.8 Seconds (9.4-12.1)
[2019-01-29] MEDS: Insulin LISPRO 300 UNITS/3 ML VIAL SQ SCH ×4 (09:03→20:31)
[2019-01-29] MEDS: Aspirin 81 MG TAB.CHEW PO SCH (09:04)
[2019-01-29] MEDS: Furosemide 20 MG TABLET PO SCH (09:04)
[2019-01-29] MEDS: Isosorbide MONOnitrate (24 HR) 30 MG TAB.ER.24H PO SCH (09:04)
[2019-01-29] MEDS: Insulin DETEMIR 100 UNIT/ML X5UNITS SQ SCH ×2 (09:04→20:31)
[2019-01-29] MEDS: Metoprolol XL (24 HR) Succ 25 MG TAB.ER.24H PO SCH (09:05)
--- NOTE | 2019-01-29 13:52 | Internal Med Progress Note ---
Hospitalist Progress Note - Encounter Date of Encounter: 01/29/19 Time of Encounter: 09:00 - Subjective Interval History: Patient was seen and examined at bedside, family at bedside. All questions answered. Continues to have shortness of breath and wheezing however feels better since admission. All questions were answered., Tolerating by mouth diet and has no pain. Denies fever or chills or chest pain or palpitations. No overnight events. - Exam Vitals: Temp Pulse Resp BP Pulse Ox 97.7 F 81 20 151/77 93 01/29/19 11:45 01/29/19 11:45 01/29/19 11:45 01/29/19 11:45 01/29/19 11:45 Exam: General: In no acute distress. Heart of hearing, speaks in full sentences. Respiratory exam: no accessory muscle use, scattered wheezing in the anterior chest. air entry improved Cardiovascular exam: RRR, +S1, +S2. no murmur, gallop, rubs. GI/Abdominal exam: Obese, Non-tender, Non-distended, normal bowel sounds, soft, no peritoneal signs. Extremities exam: 1+ pedal edema, pulses palpable in b/l lower extremities. no calf tenderness Neurological exam: CN II-XII intact, AO X3, no focal deficits. Skin exam: onychomycosis and some scaling between toes. - Assessment and Plan (1) COPD exacerbation Current Visit: Yes Status: Acute (2) Shortness of breath Current Visit: Yes Status: Acute (3) Chronic kidney disease Current Visit: Yes Status: Chronic (4) Diabetes mellitus Current Visit: Yes Status: Chronic (5) DVT prophylaxis Current Visit: Yes Status: Acute - Summary of Assessment and Plan Summary of Assessment and Plan: Assessment COPD exacerbation Diabetes History of DVT and PE status post IVC filter CAD CHF, diastolic Hypertension CKD onycomycosis Plan - Continue scheduled duonebs. Increased IV steroids to 3 times a day as he continues to wheeze. Continue empiric azithromycin. RIP negative . sputum culture if able to. BiPAP if in respiratory distress. - c/w beta blockers, ARB, IMDUR, - c/w levermir dose increased , SSI ( medium dose) and accuchecks - c/w home coumdain and lasix. - Renal function stable. c/w home lasix - was started on fluconazole weekly for 4-6 weeks. - Time Spent with Patient Total time spent is greater than 50% in coordination of care (as documented) at patient's floor/unit and/or counseling patient: 25 - 35 minutes Internal Medicine: Result - Labs CBC & Chem 7: 01/27/19 04:09 01/27/19 04:09 - ABG Interpretation ABG results: PT/INR, D-dimer PT 24.8 Seconds (9.4-12.1) H 01/29/19 06:29 Consult Discharge Plan - Plan Referrals: Fani Davis [Primary Care Provider] - (3) Chronic kidney disease Qualifiers: Chronic kidney disease stage: unspecified stage Qualified Code(s): N18.9 - Chronic kidney disease, unspecified (4) Diabetes mellitus Qualifiers: Diabetes mellitus type: type 2 Qualified Code(s): E11.9 - Type 2 diabetes mellitus without complications
[2019-01-29] MEDS: Sennosides/Docusate Sodium TABLET PO SCH (17:29)
[2019-01-29] MEDS ORDERED: *HR* Warfarin 2.5 MG TABLET PO ONE (18:00)
[2019-01-29] MEDS: Azithromycin 500 MG in D5% in Water 250 ML IVPB SCH (20:32)
[2019-01-29] MEDS: Budesonide/Formoterol 80/4.5 MDI IH SCH (22:28)
[2019-01-30] MEDS: Ipratropium/Albuterol Neb 3 ML IH SCH ×4 (03:15→21:21)
[2019-01-30 03:35] LABS: INR 2.5; Prothrombin Time 27.7 Seconds (9.4-12.1)
[2019-01-30] MEDS: methylPREDNISolone 125 MG/2 ML VIAL IVP SCH (06:34)
[2019-01-30] MEDS: Insulin LISPRO 300 UNITS/3 ML VIAL SQ SCH ×4 (08:46→21:32)
[2019-01-30] MEDS: Furosemide 20 MG TABLET PO SCH (08:46)
[2019-01-30] MEDS: Aspirin 81 MG TAB.CHEW PO SCH (08:47)
[2019-01-30] MEDS: Isosorbide MONOnitrate (24 HR) 30 MG TAB.ER.24H PO SCH (08:47)
[2019-01-30] MEDS: Metoprolol XL (24 HR) Succ 25 MG TAB.ER.24H PO SCH (08:47)
[2019-01-30] MEDS: Insulin DETEMIR 100 UNIT/ML X5UNITS SQ SCH ×2 (08:49→21:33)
[2019-01-30] MEDS: Budesonide/Formoterol 80/4.5 MDI IH SCH ×2 (10:27→21:21)
--- NOTE | 2019-01-30 13:06 | Internal Med Progress Note ---
Hospitalist Progress Note - Encounter Date of Encounter: 01/30/19 Time of Encounter: 09:00 - Subjective Interval History: Patient was seen and examined at bedside. Family at bedside and all questions answered. As per patient and family he is doing much better than yesterday. Wheezing has completely resolved. I discussed discharge planning with the pa kayley and family and they are all in agreement. He denies fever, chills, nausea, vomiting or diarrhea. - Exam Vitals: Temp Pulse Resp BP Pulse Ox 98.5 F 84 18 136/79 96 01/30/19 06:29 01/30/19 06:29 01/30/19 10:27 01/30/19 06:29 01/30/19 10:27 Exam: General: In no acute distress. Heart of hearing, speaks in full sentences. Respiratory exam: no accessory muscle use, no wheezing, air entry improved Cardiovascular exam: RRR, +S1, +S2. no murmur, gallop, rubs. GI/Abdominal exam: Obese, Non-tender, Non-distended, normal bowel sounds, soft, no peritoneal signs. Extremities exam: 1+ pedal edema, pulses palpable in b/l lower extremities. no calf tenderness Neurological exam: CN II-XII intact, AO X3, no focal deficits. Skin exam: onychomycosis and some scaling between toes. - Assessment and Plan (1) COPD exacerbation Current Visit: Yes Status: Acute (2) Shortness of breath Current Visit: Yes Status: Acute (3) Chronic kidney disease Current Visit: Yes Status: Chronic (4) Diabetes mellitus Current Visit: Yes Status: Chronic (5) DVT prophylaxis Current Visit: Yes Status: Acute (6) Acute and chronic respiratory failure, unspecified whether with hypoxia or hypercapnia Current Visit: Yes Status: Acute - Summary of Assessment and Plan Summary of Assessment and Plan: COPD exacerbation Diabetes History of DVT and PE status post IVC filter CAD CHF, diastolic Hypertension CKD onycomycosis Plan - My first encounter with misti davis was on 01/29- he was admitted on 01/27 - Continue scheduled duonebs. Wheezing is improved so Solu-Medrol was transitio kalyan to by mouth prednisone. Continue empiric azithromycin for total of 5 days. RIP negative . sputum culture if able to. BiPAP if in respiratory distress. Symbicort. He was encouraged to use his home oxygen. - c/w beta blockers, ARB, IMDUR, - c/w levermir dose increased , SSI ( medium dose) and accuchecks - c/w home coumadin and lasix. - Renal function stable. c/w home lasix - was started on fluconazole weekly for 4-6 weeks. - Time Spent with Patient Total time spent is greater than 50% in coordination of care (as documented) at patient's floor/unit and/or counseling patient: 25 - 35 minutes Plan of Care Discussed with: family Internal Medicine: Result - Labs CBC & Chem 7: 01/27/19 04:09 01/27/19 04:09 - ABG Interpretation ABG results: PT/INR, D-dimer PT 27.7 Seconds (9.4-12.1) H 01/30/19 03:14 Consult Discharge Plan - Plan Referrals: Fani Davis [Primary Care Provider] - (3) Chronic kidney disease Qualifiers: Chronic kidney disease stage: unspecified stage Qualified Code(s): N18.9 - Chronic kidney disease, unspecified (4) Diabetes mellitus Qualifiers: Diabetes mellitus type: type 2 Qualified Code(s): E11.9 - Type 2 diabetes mellitus without complications
[2019-01-30] MEDS: GuaiFENesin Liq 200 MG/10 ML UDC PO PRN ×2 (14:46→23:13)
[2019-01-30] MEDS ORDERED: Menthol 9.1 MG LOZENGE PO PRN (15:03)
[2019-01-30] MEDS ORDERED: Benzonatate 100 MG CAPSULE PO PRN (15:03)
[2019-01-30] MEDS: Sennosides/Docusate Sodium TABLET PO SCH (16:26)
[2019-01-30] MEDS ORDERED: *HR* Warfarin 2.5 MG TABLET PO ONE (18:00)
[2019-01-30] MEDS: Azithromycin 500 MG in D5% in Water 250 ML IVPB SCH (20:08)
[2019-01-31 03:10] LABS: INR 2.4; Prothrombin Time 26.7 Seconds (9.4-12.1)
[2019-01-31 03:22] LABS: Calcium 9.2 mg/dL (8.6-10.3); Potassium 4.6 mEq/L (3.5-5.1)
[2019-01-31] MEDS: Ipratropium/Albuterol Neb 3 ML IH SCH ×4 (03:48→22:38)
[2019-01-31] MEDS: Insulin LISPRO 300 UNITS/3 ML VIAL SQ SCH ×4 (08:44→21:35)
[2019-01-31] MEDS: predniSONE 20 MG TABLET PO SCH (08:51)
[2019-01-31] MEDS: Aspirin 81 MG TAB.CHEW PO SCH (08:51)
[2019-01-31] MEDS: Metoprolol XL (24 HR) Succ 25 MG TAB.ER.24H PO SCH (08:51)
[2019-01-31] MEDS: Furosemide 20 MG TABLET PO SCH (08:52)
[2019-01-31] MEDS: Insulin DETEMIR 100 UNIT/ML X5UNITS SQ SCH ×2 (08:52→21:35)
[2019-01-31] MEDS: Isosorbide MONOnitrate (24 HR) 30 MG TAB.ER.24H PO SCH (08:52)
--- NOTE | 2019-01-31 09:31 | Electrocardiograph Report ---
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
--- NOTE | 2019-01-31 10:02 | Discharge Summary ---
- NOTES TO OUTPATIENT PROVIDER Notes to Outpatient Provider: follow INR and BMP in AM Orders not resulted at time of discharge: Pending orders 01/27/19 09:16 Culture,Sputum with Gram Stain [RM] Routine 02/01/19 04:00 PT/INR [Prothrombin Time INR] [COAG] AM 0400 02/02/19 04:00 PT/INR [Prothrombin Time INR] [COAG] AM 0400 02/03/19 04:00 PT/INR [Prothrombin Time INR] [COAG] AM 0400 Date of Encounter: 02/01/19 Time of Encounter: 09:57 - Discharge Diagnosis (1) COPD exacerbation Priority: Primary Status: Acute (2) Shortness of breath Priority: Secondary Status: Acute (3) Chronic kidney disease Priority: Secondary Status: Chronic Qualifiers: Chronic kidney disease stage: unspecified stage Qualified Code(s): N18.9 - Chronic kidney disease, unspecified (4) Diabetes mellitus Priority: Secondary Status: Chronic Qualifiers: Diabetes mellitus type: type 2 Qualified Code(s): E11.9 - Type 2 diabetes mellitus without complications (5) DVT prophylaxis Priority: Secondary Status: Acute (6) Acute and chronic respiratory failure, unspecified whether with hypoxia or hypercapnia Priority: Secondary Status: Acute Qualifiers: Respiratory failure complication: hypoxia Qualified Code(s): J96.21 - Acute and chronic respiratory failure with hypoxia Hospital course: "Mr. Colon is a 88 year old male with past medical history significant for CAD with stents, PE/DVT with IVC filter and coumadin, CHF, hyperlipidemia, hypte rension, COPD, diabetes, chronic kidney disease, thyroid disease, kidney stones, cancer, depression, and hearing loss who presents from home for complaints of shortness of breath, wheezing, and non productive cough getting progressively worse over past two days. HPI somewhat limited due to patient being significantly hard of hearing. States symptoms are worse with activity but denies any alleviating factors. Wears home 02 as needed. Son reported to nurse that home oxygen saturations range from upper 80's to lower 90's. Reports being seen 2 days ago by PCP for same and started on medication that he thinks was an antibiotic but is unsure. Due to symptoms continuing to worsen came to ER for further evaluation. Denies any headache, fever, chills, chest pain, sputum production, abdominal pain, bowel or bladder changes. ER obtained chest xray which showed stable portable study. ER reported EKG as sinus rhythm with no acute ST segment elevation. After receiving steroids, breathing treatment, and antibiotics in ER patient reports improvement in his symptoms. Denies regularly checking blood sugars at home and is unsure what they have been averaging. Reports intermittently checking blood pressures at home with systolic averaging in the 140's. Follows regularly with PCP every three months, cardiology and nephrology annually. Patient has previous DNRCCA document which was verified by nurse with patient son who is POA. " Patient presented with above presentation and had above ED course. My first encounter with the patient was on 01/29- he was admitted on 01/27. He was treated with IV steroids and transitioned to by mouth prednisone for a taper. He continued azithromycin for total of 5 days. Urine antigens were negative, respiratory infections panel was negative. He was restarted on his beta blockers, and continued ARB, lasix and IMDUR and discussed with the son at bedside will need beta jaron prescription on discharge as he is ran out. levermir dose increased , SSI ( medium dose) and accuchecks for better glucose control as he was on steroids. for [facility] to continue with insuling and adjust as per finger sticks. INR followed and therapeutic at 2.1. for [place] to follow INR and BMP in AM Pt/OT recommended swing bed. CM and SW on board for transfer to [facility] swing bed i discussed with sons above and they are in agreement. Patient has previous DNRCCA document which was verified by nurse with patient son who is POA. Discharge discussed with: patient, family, nurse, social work, case management, behavioral consultant - Time Spent with Patient Total time spent providing and/or coordinating discharge services: Time spent: Greater than 30 minutes (35) - Discharge Medications Prescriptions: New Ipratropium/Albuterol Neb [Duoneb] 3 ml IH [id number] PRN #30 inhsol PRN Reason: Dyspnea predniSONE [PredniSONE] 10 mg PO DAILY #21 tablet GuaiFENesin Liq [Robitussin Liq] 200 mg PO Q6HR PRN #10 udc PRN Reason: Cough Budesonide/Formoterol 80/4.5 [Symbicort 80/4.5] 1 puff IH BIDR #1 inhaler Nebulizer and Compressor [Ombra Compressor System] 1 each MC QID PRN #1 each PRN Reason: Dyspnea Metoprolol XL (24 HR) Succ [Toprol Xl] 12.5 mg PO DAILY #30 tab.er.24h Continued Simvastatin [Zocor] 20 mg PO HS Aspirin 81 mg PO DAILY Allopurinol [Zyloprim] 100 mg PO DAILY Sertraline HCl [Zoloft] 25 mg PO HS Losartan [Cozaar] 25 mg PO DAILY Cholecalciferol (Vitamin D3) [Vitamin D3] 5,000 mg PO DAILY Levothyroxine [Synthroid] 50 mcg PO QAM Isosorbide MONOnitrate (24 HR) [Imdur] 30 mg PO DAILY #30 tab.er.24h Sennosides/Docusate Sodium [Senna Plus] 1 tab PO QPM Ferrous Gluconate 324 mg PO DAILY Furosemide [Lasix] 20 mg PO DAILY Vitamin E 400 unit PO DAILY Pantoprazole Sodium [Protonix] 40 mg PO DAILY Ranitidine HCl [Heartburn Relief] 150 mg PO DAILY Multivits,Ca,Min/Iron/FA/Lycop [Centrum Men's Tablet] 1 tab PO DAILY Insulin ASPART [Novolog Flexpen] 25 unit SQ BID Insulin Degludec [Tresiba] 60 unit SQ HS Warfarin Sodium 2.5 mg PO JOHNSON Warfarin [Coumadin] [address] [facility] Home Medications: Allopurinol [Zyloprim] 100 mg PO DAILY 05/13/15 [History] Aspirin 81 mg PO DAILY 05/13/15 [History] Cholecalciferol (Vitamin D3) [Vitamin D3] 5,000 mg PO DAILY 05/13/15 [History] Losartan [Cozaar] 25 mg PO DAILY 05/13/15 [History] Sertraline HCl [Zoloft] 25 mg PO HS 05/13/15 [History] Simvastatin [Zocor] 20 mg PO HS 05/13/15 [History] Levothyroxine [Synthroid] 50 mcg PO QAM 11/29/15 [History] Isosorbide MONOnitrate (24 HR) [Imdur] 30 mg PO DAILY #30 tab.er.24h 04/29/16 [Rx] Ferrous Gluconate 324 mg PO DAILY 01/12/17 [History] Sennosides/Docusate Sodium [Senna Plus] 1 tab PO QPM 01/12/17 [History] Furosemide [Lasix] 20 mg PO DAILY 04/24/18 [History] Insulin ASPART [Novolog Flexpen] 25 unit SQ BID 12/25/18 [History] Insulin Degludec [Tresiba] 60 unit SQ HS 12/25/18 [History] Multivits,Ca,Min/Iron/FA/Lycop [Centrum Men's Tablet] 1 tab PO DAILY 12/25/18 [History] Pantoprazole Sodium [Protonix] 40 mg PO DAILY 12/25/18 [History] Ranitidine HCl [Heartburn Relief] 150 mg PO DAILY 12/25/18 [History] Vitamin E 400 unit PO DAILY 12/25/18 [History] Warfarin Sodium 2.5 mg PO JOHNSON 01/26/19 [History] Warfarin [Coumadin] 5 mg PO MOTUWETHFRSA 01/26/19 [History] Budesonide/Formoterol 80/4.5 [Symbicort 80/4.5] 1 puff IH BIDR #1 inhaler 01/31/19 [Rx] GuaiFENesin Liq [Robitussin Liq] 200 mg PO Q6HR PRN #10 udc 01/31/19 [Rx] Ipratropium/Albuterol Neb [Duoneb] 3 ml IH [id number] PRN #30 inhsol 01/31/19 [Rx] Nebulizer and Compressor [Ombra Compressor System] 1 each MC QID PRN #1 each 01/31/19 [Rx] predniSONE [PredniSONE] 10 mg PO DAILY #21 tablet 01/31/19 [Rx] Metoprolol XL (24 HR) Succ [Toprol Xl] 12.5 mg PO DAILY #30 tab.er.24h 02/01/19 [Rx] Allergies/Adverse Reactions: Allergy/AdvReac Type Severity Reaction Status Date / Time morphine Allergy Rash Verified 01/26/19 19:30 Date of admission: 01/29/19 13:40 Primary care physician: Fani Davis - Constitutional Vitals: Temp Pulse Resp BP Pulse Ox 97.9 F 88 20 157/81 93 01/31/19 06:37 01/31/19 06:37 01/31/19 06:37 01/31/19 06:37 01/31/19 06:37 Exam: General: In no acute distress. Heart of hearing, speaks in full sentences. Respiratory exam: no accessory muscle use, no wheezing, air entry improved Cardiovascular exam: RRR, +S1, +S2. no murmur, gallop, rubs. GI/Abdominal exam: Obese, Non-tender, Non-distended, normal bowel sounds, soft, no peritoneal signs. Extremities exam: 1+ pedal edema, pulses palpable in b/l lower extremities. no calf tenderness Neurological exam: CN II-XII intact, AO X3, no focal deficits. Skin exam: onychomycosis and some scaling between toes. - Patient Status Disposition: Transfer Hospital Swing Bed Condition: Fair Functional capacity at discharge: uses cane/walker Overall status at discharge: patient is progressing back to baseline - Discharge Instructions Follow Up With: Fani Davis [Primary Care Provider] - - Diet and Activity Activity: as per physical therapy Diet: diabetic diet (caardiac )
[2019-01-31] MEDS: Budesonide/Formoterol 80/4.5 MDI IH SCH ×2 (10:18→22:31)
--- NOTE | 2019-01-31 15:27 | Internal Med Progress Note ---
Hospitalist Progress Note - Encounter Date of Encounter: 01/31/19 Time of Encounter: 15:25 - Subjective Interval History: Patient was seen and examined at bedside. Was walking by the nursing staff however quickly was fatigued. I discussed with son at bedside that we will get physical therapy and occupational therapy to see him they are open to the idea of him going to facility for further physical therapy before he returns home as he lives by himself. The patient reports that his shortness of breath is improved significantly since admission and reports that he is almost at his baseline. Denies any overnight events. Tolerating by mouth diet and denies any fever, chills, nausea, vomiting or diarrhea. - Exam Vitals: Temp Pulse Resp BP Pulse Ox 98.2 F 92 18 137/83 92 01/31/19 14:48 01/31/19 14:48 01/31/19 14:48 01/31/19 14:48 01/31/19 14:48 Exam: General: In no acute distress. Heart of hearing, speaks in full sentences. Respiratory exam: no accessory muscle use, no wheezing, air entry improved Cardiovascular exam: RRR, +S1, +S2. no murmur, gallop, rubs. GI/Abdominal exam: Obese, Non-tender, Non-distended, normal bowel sounds, soft, no peritoneal signs. Extremities exam: 1+ pedal edema, pulses palpable in b/l lower extremities. no calf tenderness Neurological exam: CN II-XII intact, AO X3, no focal deficits. Skin exam: onychomycosis and some scaling between toes. - Assessment and Plan (1) COPD exacerbation Current Visit: Yes Status: Acute (2) Shortness of breath Current Visit: Yes Status: Acute (3) Chronic kidney disease Current Visit: Yes Status: Chronic (4) Diabetes mellitus Current Visit: Yes Status: Chronic (5) DVT prophylaxis Current Visit: Yes Status: Acute (6) Acute and chronic respiratory failure, unspecified whether with hypoxia or hypercapnia Current Visit: Yes Status: Acute - Summary of Assessment and Plan Summary of Assessment and Plan: COPD exacerbation Diabetes History of DVT and PE status post IVC filter CAD CHF, diastolic Hypertension CKD Plan - My first encounter with misti davis was on 01/29- he was admitted on 01/27 - Continue scheduled duonebs. Wheezing is improved so Solu-Medrol was transitioned to by mouth prednisone. Continue empiric azithromycin for total of 5 days (last day was today). RIP negative . sputum culture if able to. BiPAP if in respiratory distress. Symbicort. He was encouraged to use his home oxygen. - c/w beta blockers, ARB, IMDUR, discussed with the son at bedside will need beta jaron prescription on discharge as he is ran out. - c/w levermir dose increased , SSI ( medium dose) and accuchecks - c/w home coumadin and lasix. - Renal function stable. c/w home lasix - Time Spent with Patient Total time spent is greater than 50% in coordination of care (as documented) at patient's floor/unit and/or counseling patient: 25 - 35 minutes Plan of Care Discussed with: family Internal Medicine: Result - Labs CBC & Chem 7: 01/27/19 04:09 01/31/19 02:50 Labs: BMP 01/31/19 02:50 Sodium 137 Potassium 4.6 Chloride 101 Carbon Dioxide 23 BUN 80 H Creatinine 2.57 H Glucose 200 H Calcium 9.2 - ABG Interpretation ABG results: PT/INR, D-dimer PT 26.7 Seconds (9.4-12.1) H 01/31/19 02:50 Consult Discharge Plan - Plan Referrals: Fani Davis [Primary Care Provider] - Prescriptions: RX: Ipratropium/Albuterol Neb [Duoneb] 3 ml IH [id number] PRN #30 inhsol PRN Reason: Dyspnea RX: Nebulizer and Compressor [Ombra Compressor System] 1 each MC QID PRN #1 each PRN Reason: Dyspnea predniSONE [PredniSONE] 10 mg PO DAILY #21 tablet RX: GuaiFENesin Liq [Robitussin Liq] 200 mg PO Q6HR PRN #10 udc PRN Reason: Cough RX: Budesonide/Formoterol 80/4.5 [Symbicort 80/4.5] 1 puff IH BIDR #1 inhaler (3) Chronic kidney disease Qualifiers: Chronic kidney disease stage: unspecified stage Qualified Code(s): N18.9 - Chronic kidney disease, unspecified (4) Diabetes mellitus Qualifiers: Diabetes mellitus type: type 2 Qualified Code(s): E11.9 - Type 2 diabetes mellitus without complications
[2019-01-31] MEDS: Sennosides/Docusate Sodium TABLET PO SCH (17:45)
[2019-01-31] MEDS ORDERED: *HR* Warfarin 2.5 MG TABLET PO ONE (18:00)
[2019-01-31] MEDS: Azithromycin 500 MG in D5% in Water 250 ML IVPB SCH (21:34)
[2019-02-01] MEDS: Ipratropium/Albuterol Neb 3 ML IH SCH ×2 (03:57→10:16)
[2019-02-01 07:12] LABS: INR 2.1; Prothrombin Time 23.8 Seconds (9.4-12.1)
[2019-02-01] MEDS: Insulin LISPRO 300 UNITS/3 ML VIAL SQ SCH ×2 (09:41→11:58)
[2019-02-01] MEDS: predniSONE 20 MG TABLET PO SCH (09:49)
[2019-02-01] MEDS: Aspirin 81 MG TAB.CHEW PO SCH (09:49)
[2019-02-01] MEDS: Metoprolol XL (24 HR) Succ 25 MG TAB.ER.24H PO SCH (09:49)
[2019-02-01] MEDS: Furosemide 20 MG TABLET PO SCH (09:49)
[2019-02-01] MEDS: Isosorbide MONOnitrate (24 HR) 30 MG TAB.ER.24H PO SCH (09:49)
[2019-02-01] MEDS: Insulin DETEMIR 100 UNIT/ML X5UNITS SQ SCH (09:50)
[2019-02-01] MEDS: Budesonide/Formoterol 80/4.5 MDI IH SCH (10:16)
[2019-02-01 11:47] VITALS: BP 126/72
--- NOTE | 2019-02-01 11:55 | Physician Discharge Referral ---
ExtendedCare Referral Info Transfer To: [facility] Provider in Charge after Transfer: PCP Institutional Level of Care: Skilled - Diagnosis (1) COPD exacerbation Status: Acute (2) Shortness of breath Status: Acute (3) Chronic kidney disease Status: Chronic (4) Diabetes mellitus Status: Chronic (5) DVT prophylaxis Status: Acute (6) Acute and chronic respiratory failure, unspecified whether with hypoxia or hypercapnia Status: Acute - Transfer Medications Prescriptions: Ipratropium/Albuterol Neb [Duoneb] 3 ml IH [id number] PRN #30 inhsol PRN Reason: Dyspnea Nebulizer and Compressor [Ombra Compressor System] 1 each MC QID PRN #1 each PRN Reason: Dyspnea predniSONE [PredniSONE] 10 mg PO DAILY #21 tablet GuaiFENesin Liq [Robitussin Liq] 200 mg PO Q6HR PRN #10 udc PRN Reason: Cough Budesonide/Formoterol 80/4.5 [Symbicort 80/4.5] 1 puff IH BIDR #1 inhaler Home Medications: Allopurinol [Zyloprim] 100 mg PO DAILY 05/13/15 [History] Aspirin 81 mg PO DAILY 05/13/15 [History] Cholecalciferol (Vitamin D3) [Vitamin D3] 5,000 mg PO DAILY 05/13/15 [History] Losartan [Cozaar] 25 mg PO DAILY 05/13/15 [History] Sertraline HCl [Zoloft] 25 mg PO HS 05/13/15 [History] Simvastatin [Zocor] 20 mg PO HS 05/13/15 [History] Levothyroxine [Synthroid] 50 mcg PO QAM 11/29/15 [History] Isosorbide MONOnitrate (24 HR) [Imdur] 30 mg PO DAILY #30 tab.er.24h 04/29/16 [Rx] Ferrous Gluconate 324 mg PO DAILY 01/12/17 [History] Sennosides/Docusate Sodium [Senna Plus] 1 tab PO QPM 01/12/17 [History] Furosemide [Lasix] 20 mg PO DAILY 04/24/18 [History] Insulin ASPART [Novolog Flexpen] 25 unit SQ BID 12/25/18 [History] Insulin Degludec [Tresiba] 60 unit SQ HS 12/25/18 [History] Multivits,Ca,Min/Iron/FA/Lycop [Centrum Men's Tablet] 1 tab PO DAILY 12/25/18 [History] Pantoprazole Sodium [Protonix] 40 mg PO DAILY 12/25/18 [History] Ranitidine HCl [Heartburn Relief] 150 mg PO DAILY 12/25/18 [History] Vitamin E 400 unit PO DAILY 12/25/18 [History] Warfarin Sodium 2.5 mg PO JOHNSON 01/26/19 [History] Warfarin [Coumadin] 5 mg PO MOTUWETHFRSA 01/26/19 [History] Budesonide/Formoterol 80/4.5 [Symbicort 80/4.5] 1 puff IH BIDR #1 inhaler 01/31/19 [Rx] GuaiFENesin Liq [Robitussin Liq] 200 mg PO Q6HR PRN #10 udc 01/31/19 [Rx] Ipratropium/Albuterol Neb [Duoneb] 3 ml IH [id number] PRN #30 inhsol 01/31/19 [Rx] Nebulizer and Compressor [Ombra Compressor System] 1 each MC QID PRN #1 each 01/31/19 [Rx] predniSONE [PredniSONE] 10 mg PO DAILY #21 tablet 01/31/19 [Rx] Allergies/Adverse Reactions: Allergy/AdvReac Type Severity Reaction Status Date / Time morphine Allergy Rash Verified 01/26/19 19:30 - Respiratory Orders Oxygen / L per min (2) Smoking Cessation: Smoking cessation has been advised. For more information, call the [place] Tobacco Quit Line at 5-710-CRHY-NOW. - Lab Orders Lab Orders: Other (include drug levels w/frequency) (INR check last one was 2.1 ( on 02/01) in 1 day) - Mobility Orders Ambulate - Rehabiliation Orders Rehab Potential: Fair Rehab Orders: Sternal Precautions, ROM Exercises, Evaluation for Physical Therapy, Evaluation for Occupational Therapy - Treatments Skin tear care topically daily PRN per policy - Diet Orders Cardiac (diabetic) CERTIFICATION: I certify that the transfer of the above named patient to an Extended Care Facility is necessary for the continuing treatment of the diagnosis listed. The above information is true and accurate reflection of patient's current condition. Confidential - Redisclosure prohibited without a patient's written consent.
[2019-02-01] MEDS ORDERED: *HR* Warfarin 5 MG TABLET PO ONE (18:00)
== END 2019-02-01 14:30 | disposition other institution (70) | DRG 190 ==
LOC: 3NENU 17:50 → EMEROOARM 17:50 → SUATTDRO 21:09 → 3NENU 22:21
PROVIDERS: ADMIT Pediatrics; ATTEND Internal Medicine

== ENCOUNTER 2019-04-12 18:01 | Inpatient (IN) ==
[2019-04-12] MEDS ORDERED: Ipratropium/Albuterol Neb 3 ML IH ONE (18:47)
[2019-04-12] MEDS ORDERED: methylPREDNISolone 125 MG/2 ML VIAL IVP ONE (18:47)
[2019-04-12 18:56] LABS: Basophils # 0.1 K/mcL (0.0-0.2); Basophils % 0.9 %; Eosinophils # 0.8 K/mcL (0.0-0.6); Eosinophils % 9.7 %; Hematocrit 40.8 % (37.5-50.1); Hemoglobin 13.1 g/dL (12.9-16.9); Immature Granulocytes % 0.5 % (0-4); Lymphocytes # 2.3 K/mcL (0.6-4.6); Lymphocytes % 26.8 %; Mean Corpuscular HGB Conc 32.1 g/dL (31.6-35.5); Mean Corpuscular Hemoglobin 30.6 pg (28.0-33.3); Mean Corpuscular Volume 95.3 fL (83.0-100.0); Mean Platelet Volume 11.2 fL (9.4-12.4); Monocytes # 0.5 K/mcL (0.0-1.3); Monocytes % 6.2 %; Neutrophils # 4.8 K/mcL (1.6-8.9); Platelet Count 222 K/mcL (140-400); Red Blood Count 4.28 M/mcL (4.19-5.50); Red Cell Distribution Width 15.8 % (11.5-14.5); Segmented Neutrophils % 55.9 %; White Blood Count 8.5 K/mcL (4.3-11.1)
--- NOTE | 2019-04-12 18:59 | Emergency Department Note ---
Disposition Clinical Impression: COPD exacerbation Pneumonia Qualifiers: Pneumonia type: due to unspecified organism Laterality: right Lung location: lower lobe of lung Qualified Code(s): J18.1 - Lobar pneumonia, unspecified organism Disposition: Admitted As Inpatient Forms: ED Satisfaction Letter Time of Disposition: 20:44 SOB HPI - General Chief Complaint: ED Shortness of Breath/Dyspnea Stated Complaint: MOUSTAPHA Time Seen by Provider: 04/12/19 18:41 Source: patient, family Mode of arrival: ambulatory Limitations: no limitations Nursing Notes Reviewed: Yes Vital Signs Reviewed: Yes - History of Present Illness 88M seen at this facility last night by myself and Dr. Hooker return to the emergency department for worsening shortness of breath. He does have a past me dical history of CHF, CKD stage 4 and has recent admissions for pneumonia. He has been having worsening swelling in his lower extremities with a weight gain of over 5 pounds and feels as though he is retaining fluid. On exam yesterday he was found to have a right-sided pneumonia and elevated BNP. He was treated with IV Lasix and sent home with an antibiotic in hopes that this could be treated as an outpatient. He has been feeling worse throughout the day today and presented back to the emergency department because he feels as though he cannot catch his breath. He denies fever, chills, chest pain, abdominal pain, nausea and vomiting, dysuria. - Related Data Home Medications Medication Instructions Recorded Confirmed Levothyroxine [Synthroid] 50 mcg PO QAM 11/29/15 04/12/19 Ferrous Gluconate 324 mg PO DAILY 01/12/17 04/12/19 Multivits,Ca,Min/Iron/FA/Lycop 1 tab PO DAILY 12/25/18 03/20/19 [Centrum Men's Tablet] Pantoprazole Sodium [Protonix] 40 mg PO QAM 12/25/18 04/12/19 Ranitidine HCl [Heartburn Relief] 150 mg PO HS 12/25/18 04/12/19 Vitamin E 400 unit PO QAM 12/25/18 03/20/19 Allopurinol [Zyloprim 100 MG] 100 mg PO DAILY 03/20/19 04/12/19 Aspirin Enteric Coated [Aspirin EC] 81 mg PO DAILY 03/20/19 04/12/19 Cholecalciferol (Vitamin D3) 5,000 unit PO DAILY 03/20/19 04/12/19 [Vitamin D3] Docusate Sodium [Stool Softener] 100 mg PO HS 03/20/19 04/12/19 Furosemide [Lasix] 20 mg PO DAILY PRN 03/20/19 04/12/19 Isosorbide MONOnitrate (24 HR) 30 mg PO QAM 03/20/19 04/12/19 [Imdur] Losartan Potassium 25 mg PO DAILY 03/20/19 04/12/19 Metoprolol Tartrate 50 mg PO DAILY 03/20/19 04/12/19 Sertraline [Zoloft] 25 mg PO HS 03/20/19 04/12/19 Simvastatin [Zocor] 20 mg PO HS 03/20/19 04/12/19 Warfarin Sodium 2.5 mg PO JOHNSON 03/20/19 04/12/19 Warfarin Sodium 5 mg PO MOTUWETHFRSA 03/20/19 04/12/19 Previous Rx's Medication Instructions Recorded Insulin Degludec [Tresiba 35 unit SQ HS #1 insuln.pen 03/21/19 Flextouch U-100] Tiotropium [Spiriva] 18 mcg IH DAILY@0700 #1 inh 03/21/19 Doxycycline 100 mg PO BID #14 capsule 04/11/19 Allergies Allergy/AdvReac Type Severity Reaction Status Date / Time morphine Allergy Rash Verified 03/20/19 15:26 All systems ED: reviewed and negative except as stated. Review of Systems: As Per HPI Constitutional: Reports: weakness. Denies: fever Cardiovascular: Reports: dyspnea on exertion. Denies: chest pain, palpitations Respiratory: Reports: dyspnea, wheezes. Denies: cough Gastrointestinal: Denies: abdominal pain, nausea, vomiting, diarrhea Genitourinary: Denies: dysuria, hematuria Musculoskeletal: Denies: back pain Integumentary: Denies: rash Neurological: Denies: headache Endocrine: Denies: fatigue Past Medical History - Past Medical History Attestation: Yes The following information was validated with the patient. Source: patient Medical history: Reports: cancer, CHF, COPD, coronary artery disease, DVT, diabetes, hyperlipidemia, hypertension, kidney stones, myocardial infarction, p ulmonary embolus, renal disease, thyroid disease, other Surgical history: Reports: cancer surgery, cholecystectomy Psychiatric history: Reports: depression - Social History Smoking Status: Former smoker Smokeless Tobacco Status: No Alcohol use: Reports: none Drug use: Reports: none Physical Exam - General Limitations: no limitations General appearance: alert, in no apparent distress - Head Head exam: atraumatic, normocephalic - Eye Eye exam: Present: normal appearance, PERRL, EOMI - ENT ENT exam: normal exam, normal oropharynx - Neck Neck exam: Present: normal inspection. Absent: tenderness - Chest Chest inspection: Present: normal inspection. Absent: tenderness, rash - Respiratory Respiratory exam: Present: wheezes, other (mild rhonchi) - Cardiovascular Cardiovascular exam: Present: regular rate, normal rhythm - Abdominal Exam Abdominal exam: Present: soft, Non-Tender. Absent: distention, guarding, rebound, rigidity - Extremities Exam Extremities exam: Present: normal inspection. Absent: tenderness - Neurological Exam Neurological exam: Present: alert, oriented X3 - Psychiatric Psychiatric exam: Present: normal affect, normal mood - Skin Skin exam: Present: warm, dry, intact Course Vital Signs Temperature 97.7 F 04/12/19 18:04 Pulse Rate 88 04/12/19 18:04 Respiratory Rate 20 04/12/19 18:04 Blood Pressure 125/74 04/12/19 18:04 O2 Sat by Pulse Oximetry 94 04/12/19 18:04 Temperature 97.7 F 04/12/19 18:04 Pulse Rate 88 04/12/19 19:36 Respiratory Rate 16 04/12/19 19:36 Blood Pressure 140/69 04/12/19 19:36 O2 Sat by Pulse Oximetry 91 04/12/19 19:36 Oxygen Delivery Oxygen Delivery Room Air Shortness of Breath/Dyspnea - [facility] Narrative Medical decision making narrative: Patient presents with worsening shortness of breath since being seen in the emergency department yesterday. We will repeat lab testing, EKG and chest x-ray was obtained yesterday and then we will plan on admission to the hospital. Patient does sound more wheezy than yesterday and therefore we will treat him with a DuoNeb and IV steroids. 2044 - patient's lab work is completed. Spoke with Dr. Miranda, admitting hospitalist, who will accept the patient for pneumonia and COPD exacerbation. - Medical Records Medical records reviewed: Yes I reviewed the patient's medical records. - Lab Data Lab results reviewed: Yes I reviewed the patient's lab results. Result diagrams: 04/12/19 18:44 04/12/19 18:44 Lab Results 04/12/19 04/12/19 04/12/19 Range/Units 18:44 18:44 18:44 WBC 8.5 (4.3-11.1) K/mcL RBC 4.28 (4.19-5.50) M/mcL Hgb 13.1 (12.9-16.9) g/dL Hct 40.8 (37.5-50.1) % MCV 95.3 (83.0-100.0) fL MCH 30.6 (28.0-33.3) pg MCHC 32.1 (31.6-35.5) g/dL RDW 15.8 H (11.5-14.5) % Plt Count 222 (140-400) K/mcL MPV 11.2 (9.4-12.4) fL Immature Gran % 0.5 (0-4) % Seg Neutrophils % 55.9 % Lymphocytes % 26.8 % Monocytes % 6.2 % Eosinophils % 9.7 % Basophils % 0.9 % Neutrophils # 4.8 (1.6-8.9) K/mcL Lymphocytes # 2.3 (0.6-4.6) K/mcL Monocytes # 0.5 (0.0-1.3) K/mcL Eosinophils # 0.8 H (0.0-0.6) K/mcL Basophils # 0.1 (0.0-0.2) K/mcL Sodium 138 (136-145) mEq/L Potassium 3.6 (3.5-5.1) mEq/L Chloride 101 (98-107) mEq/L Carbon Dioxide 27 (23-29) mEq/L BUN 26 H (8-23) mg/dL Creatinine 2.40 H (0.70-1.30) mg/dL Est GFR ( Amer) 31 L (> 60) Est GFR (Non-Af Amer) 26 L (> 60) BUN/Creatinine Ratio 11 (6-26) Glucose 363 H (70-105) mg/dL Calculated Osmolality 305 H (280-300) Lactic Acid 2.6 H (0.5-2.2) mmol/L Calcium 9.0 (8.6-10.3) mg/dL Troponin I < 0.03 (< 0.04) ng/mL B-Natriuretic Peptide (Less than 100) pg/mL 04/12/19 Range/Units 18:44 WBC (4.3-11.1) K/mcL RBC (4.19-5.50) M/mcL Hgb (12.9-16.9) g/dL Hct (37.5-50.1) % MCV (83.0-100.0) fL MCH (28.0-33.3) pg MCHC (31.6-35.5) g/dL RDW (11.5-14.5) % Plt Count (140-400) K/mcL MPV (9.4-12.4) fL Immature Gran % (0-4) % Seg Neutrophils % % Lymphocytes % % Monocytes % % Eosinophils % % Basophils % % Neutrophils # (1.6-8.9) K/mcL Lymphocytes # (0.6-4.6) K/mcL Monocytes # (0.0-1.3) K/mcL Eosinophils # (0.0-0.6) K/mcL Basophils # (0.0-0.2) K/mcL Sodium (136-145) mEq/L Potassium (3.5-5.1) mEq/L Chloride (98-107) mEq/L Carbon Dioxide (23-29) mEq/L BUN (8-23) mg/dL Creatinine (0.70-1.30) mg/dL Est GFR ( Amer) (> 60) Est GFR (Non-Af Amer) (> 60) BUN/Creatinine Ratio (6-26) Glucose (70-105) mg/dL Calculated Osmolality (280-300) Lactic Acid (0.5-2.2) mmol/L Calcium (8.6-10.3) mg/dL Troponin I (< 0.04) ng/mL B-Natriuretic Peptide 93 (Less than 100) pg/mL - Radiology Data Radiology results reviewed: Yes I reviewed the patient's radiology results. - EKG Data EKG attestation: Yes I reviewed and interpreted this EKG. EKG results narrative: EKG obtained at 18:27 on 04/12/2019 Heart rate 87 bpm, NM interval 192, QRS duration 106, QT 396, QTC 441 Sinus rhythm with low voltage in the precordial leads. Incomplete right bundle branch block. No significant ST segment elevations or depressions. No acute changes when compared to EKG from yesterday.
--- NOTE | 2019-04-12 19:12 | Emergency Department Note ---
Disposition Clinical Impression: COPD exacerbation Pneumonia Qualifiers: Pneumonia type: due to unspecified organism Laterality: right Lung location: lower lobe of lung Qualified Code(s): J18.1 - Lobar pneumonia, unspecified organism Disposition: Admitted As Inpatient Time of Disposition: 20:44 General Adult HPI - General Chief complaint: ED Shortness of Breath/Dyspnea Stated complaint: MOUSTAPHA Time Seen by Provider: 04/12/19 18:41 Source: patient, family Mode of arrival: ambulatory Limitations: no limitations - History of Present Illness Pain Scale: 0 - Related Data Home Medications Medication Instructions Recorded Confirmed Levothyroxine [Synthroid] 50 mcg PO QAM 11/29/15 04/12/19 Ferrous Gluconate 324 mg PO DAILY 01/12/17 04/12/19 Multivits,Ca,Min/Iron/FA/Lycop 1 tab PO DAILY 12/25/18 03/20/19 [Centrum Men's Tablet] Pantoprazole Sodium [Protonix] 40 mg PO QAM 12/25/18 04/12/19 Ranitidine HCl [Heartburn Relief] 150 mg PO 12/25/18 04/12/19 Vitamin E 400 unit PO QAM 12/25/18 03/20/19 Allopurinol [Zyloprim 100 MG] 100 mg PO DAILY 03/20/19 04/12/19 Aspirin Enteric Coated [Aspirin EC] 81 mg PO DAILY 03/20/19 04/12/19 Cholecalciferol (Vitamin D3) 5,000 unit PO DAILY 03/20/19 04/12/19 [Vitamin D3] Docusate Sodium [Stool Softener] 100 mg PO 03/20/19 04/12/19 Furosemide [Lasix] 20 mg PO DAILY PRN 03/20/19 04/12/19 Isosorbide MONOnitrate (24 HR) 30 mg PO QAM 03/20/19 04/12/19 [Imdur] Losartan Potassium 25 mg PO DAILY 03/20/19 04/12/19 Metoprolol Tartrate 50 mg PO BID 03/20/19 04/13/19 Sertraline [Zoloft] 25 mg PO 03/20/19 04/12/19 Simvastatin [Zocor] 20 mg PO 03/20/19 04/12/19 Warfarin Sodium 2.5 mg PO JOHNSON 03/20/19 04/12/19 Warfarin Sodium 5 mg PO MOTUWETHFRSA 03/20/19 04/12/19 Previous Rx's Medication Instructions Recorded Insulin Degludec [Tresiba 35 unit SQ HS #1 insuln.pen 03/21/19 Flextouch U-100] Tiotropium [Spiriva] 18 mcg IH DAILY@0700 #1 inh 03/21/19 Doxycycline 100 mg PO BID #14 capsule 04/11/19 Allergies Allergy/AdvReac Type Severity Reaction Status Date / Time morphine Allergy Rash Verified 03/20/19 15:26 Constitutional: Reports: weakness. Denies: fever Cardiovascular: Reports: dyspnea on exertion. Denies: chest pain, palpitations Respiratory: Reports: dyspnea, wheezes. Denies: cough Gastrointestinal: Denies: abdominal pain, nausea, vomiting, diarrhea Genitourinary: Denies: dysuria, hematuria Musculoskeletal: Denies: back pain Integumentary: Denies: rash Neurological: Denies: headache Endocrine: Denies: fatigue Past Medical History - Past Medical History Medical history: Reports: cancer, CHF, COPD, coronary artery disease, DVT, diabetes, hyperlipidemia, hypertension, kidney stones, myocardial infarction, pulmonary embolus, renal disease, thyroid disease, other Surgical history: Reports: cancer surgery, cholecystectomy Psychiatric history: Reports: depression - Social History Smoking Status: Former smoker Smokeless Tobacco Status: No Alcohol use: Reports: none Drug use: Reports: none Physical Exam - General Limitations: no limitations General appearance: alert, in no apparent distress Course Vital Signs Temperature 97.7 F 04/12/19 18:04 Pulse Rate 88 04/12/19 18:04 Respiratory Rate 20 04/12/19 18:04 Blood Pressure 125/74 04/12/19 18:04 O2 Sat by Pulse Oximetry 94 04/12/19 18:04 Temperature 97.9 F 04/13/19 19:39 Pulse Rate 83 04/13/19 19:39 Respiratory Rate 17 04/13/19 19:39 Blood Pressure 127/69 04/13/19 19:39 O2 Sat by Pulse Oximetry 100 04/13/19 19:39 Oxygen Delivery Oxygen Delivery Room Air Medical Decision Making - Lab Data Result diagrams: 04/13/19 03:41 04/13/19 03:41 Lab Results 04/12/19 04/12/19 04/12/19 Range/Units 18:44 18:44 18:44 WBC 8.5 (4.3-11.1) K/mcL RBC 4.28 (4.19-5.50) M/mcL Hgb 13.1 (12.9-16.9) g/dL Hct 40.8 (37.5-50.1) % MCV 95.3 (83.0-100.0) fL MCH 30.6 (28.0-33.3) pg MCHC 32.1 (31.6-35.5) g/dL RDW 15.8 H (11.5-14.5) % Plt Count 222 (140-400) K/mcL MPV 11.2 (9.4-12.4) fL Immature Gran % 0.5 (0-4) % Seg Neutrophils % 55.9 % Lymphocytes % 26.8 % Monocytes % 6.2 % Eosinophils % 9.7 % Basophils % 0.9 % Neutrophils # 4.8 (1.6-8.9) K/mcL Lymphocytes # 2.3 (0.6-4.6) K/mcL Monocytes # 0.5 (0.0-1.3) K/mcL Eosinophils # 0.8 H (0.0-0.6) K/mcL Basophils # 0.1 (0.0-0.2) K/mcL Sodium 138 (136-145) mEq/L Potassium 3.6 (3.5-5.1) mEq/L Chloride 101 (98-107) mEq/L Carbon Dioxide 27 (23-29) mEq/L BUN 26 H (8-23) mg/dL Creatinine 2.40 H (0.70-1.30) mg/dL Est GFR ( Amer) 31 L (> 60) Est GFR (Non-Af Amer) 26 L (> 60) BUN/Creatinine Ratio 11 (6-26) Glucose 363 H (70-105) mg/dL Calculated Osmolality 305 H (280-300) Lactic Acid 2.6 H (0.5-2.2) mmol/L Calcium 9.0 (8.6-10.3) mg/dL Troponin I < 0.03 (< 0.04) ng/mL B-Natriuretic Peptide (Less than 100) pg/mL Procalcitonin (0.00-0.15) ng/mL 04/12/19 04/12/19 Range/Units 18:44 18:44 WBC (4.3-11.1) K/mcL RBC (4.19-5.50) M/mcL Hgb (12.9-16.9) g/dL Hct (37.5-50.1) % MCV (83.0-100.0) fL MCH (28.0-33.3) pg MCHC (31.6-35.5) g/dL RDW (11.5-14.5) % Plt Count (140-400) K/mcL MPV (9.4-12.4) fL Immature Gran % (0-4) % Seg Neutrophils % % Lymphocytes % % Monocytes % % Eosinophils % % Basophils % % Neutrophils # (1.6-8.9) K/mcL Lymphocytes # (0.6-4.6) K/mcL Monocytes # (0.0-1.3) K/mcL Eosinophils # (0.0-0.6) K/mcL Basophils # (0.0-0.2) K/mcL Sodium (136-145) mEq/L Potassium (3.5-5.1) mEq/L Chloride (98-107) mEq/L Carbon Dioxide (23-29) mEq/L BUN (8-23) mg/dL Creatinine (0.70-1.30) mg/dL Est GFR ( Amer) (> 60) Est GFR (Non-Af Amer) (> 60) BUN/Creatinine Ratio (6-26) Glucose (70-105) mg/dL Calculated Osmolality (280-300) Lactic Acid (0.5-2.2) mmol/L Calcium (8.6-10.3) mg/dL Troponin I (< 0.04) ng/mL B-Natriuretic Peptide 93 (Less than 100) pg/mL Procalcitonin 0.16 H (0.00-0.15) ng/mL Attestation Statement - Attestation Attestation: I examined this patient and my medical decision-making was reviewed with the Resident Physician. I agree with the documented findings, disposition and treatment plan as described except to the extent set forth below. Patient 88-year-old gentleman was seen yesterday in the emergency department with shortness of breath and cough. The patient was tempted be treated as an outpatient but has had worsening symptomatology and at this time appears to be failing outpatient therapy. Exam the patient has a wheezing present bilaterally +1 pitting edema of the lower extremities. Medical decision management the patient will undergo laboratory testing and at this time patient will be admitted to the hospital.
[2019-04-12 19:17] LABS: BUN/Creatinine Ratio 11 (6-26); Blood Urea Nitrogen 26 mg/dL (8-23); Carbon Dioxide 27 mEq/L (23-29); Chloride 101 mEq/L (98-107); Glucose 363 mg/dL (70-105); Osmolality,Calculated 305 (280-300); Potassium 3.6 mEq/L (3.5-5.1); Sodium 138 mEq/L (136-145); eGFR For African Americans 31 (> 60); eGFR For Non-African Americans 26 (> 60)
[2019-04-12 19:18] LABS: Troponin I < 0.03 ng/mL (< 0.04)
[2019-04-12] MEDS ORDERED: Piperacillin/Tazobactam 3.375 GM in 0.9 % Sodium Chloride Mini Bag 100 ML IVPB ONE (20:40)
[2019-04-12] MEDS ORDERED: 0.9 % Sodium Chloride 1,000 ML IVC ONE (20:40)
[2019-04-12] MEDS ORDERED: Aminoglycoside Consult 1 EACH MC ONE (21:37)
[2019-04-12] MEDS ORDERED: Naloxone 0.4 MG/ML INJ IVP PRN (23:42)
[2019-04-12] MEDS ORDERED: Vancomycin (wt based) 1,000 MG VIAL IVPB SCH (23:45)
[2019-04-12] MEDS ORDERED: Azithromycin 500 MG in D5% in Water 250 ML IVPB SCH (23:45)
[2019-04-13] MEDS: MethylPREDNISolone 40 MG/ML VIAL IVP SCH ×2 (01:05→06:26)
[2019-04-13] MEDS ORDERED: D5% in Water 1,000 ML IVC PRN (02:12)
[2019-04-13] MEDS ORDERED: *HR* Dextrose 50 % in Water (Syg) 50 ML SYRINGE IVP PRN (02:12)
[2019-04-13] MEDS ORDERED: Dextrose Gel 15 GM/37.5 ML TUBE PO PRN ×2 (02:12)
[2019-04-13] MEDS ORDERED: Insulin DETEMIR 100 UNIT/ML X5UNITS SQ SCH ×2 (02:15→10:30)
--- NOTE | 2019-04-13 02:17 | Internal Med History&Physical ---
Date of Encounter: 04/13/19 Time of Encounter: 01:58 Internal Medicine - H&P: HPI Chief complaint: Shortness of breath History of present illness: Mr. Colon is a 88 year old male with a past medical history of COPD, heart failure with preserved ejection fraction, coronary artery disease, history of PE, and CKD stage IV who presented to the ED due to shortness of breath and cough. Patient states symptoms of shortness of breath and cough abdomen ongoing for the past 3 days. Patient has also noted increased lower extremity swelling and weight gain of approximately 5 pounds. He was seen and evaluated in the ED yesterday and given a one-time dose of IV Lasix 20 mg and oral doxycycline for suspected fluid overload and right sided lower lobe pneumonia. His son at [facility] noted increasing cough and weakness today and brought him in again for further evaluation. Patient states the shortness of breath occurs with exertion and at rest. He has noted increased wheezing and nonproductive cough. Patient denies any fever. No reports of orthopnea or PND. Patient is currently on 20 mg of Lasix by mouth daily. Patient was given a one-time dose of 20 mg IV push yesterday. Son reports patient did respond and did have increased urine output last night. On arrival patient was afebrile and hemodynamically stable, saturating 94% on room air. Laboratory workup was relatively unremarkable including a normal white count. Patient did have a mild lactic acidosis of 2.6. Pro-calcitonin 0.16. BNP 93. Initial troponin negative. Chest CT shows hazy opacity in the right lower lung suspicious for pneumonia or pneumonitis. Patient received 1 L fluid bolus in the ED as well as broad-spectrum coverage for right lower lobe pneumonia failing outpatient treatment. Patient DNR/DNI. Past Med Surg Social Fam HX - Past Medical History Medical history: cancer, CHF, COPD, coronary artery disease, DVT, diabetes, hyperlipidemia, hypertension, kidney stones, myocardial infarction, pulmonary embolus, renal disease, thyroid disease, other Additional medical history: Skin Cancer Psychiatric history: depression - Past Surgical History Surgical History: cancer surgery, cholecystectomy Additional surgical history: jose filter. back sx. Skin cancer on face removed X2 - Social History Smoking Status: Former smoker Smokeless Tobacco Status: No Alcohol use: none Drug use: none - Family History Brother Family Member Ethnicity: Non- Living Status: Hx Family Cardiac Disorders: Yes (GA, CAD) Hx Family Endocrine Disorder: Yes (DM) Mother Family Member Ethnicity: Non- Living Status: Hx Family Cardiac Disorders: Yes ([place], CAD) Sister Family Member Ethnicity: Non- Living Status: Father Family Member Ethnicity: Non- Living Status: Hx Family Cardiac Disorders: No Hx Family Respiratory Disorders: Yes (PNA) Hx Family Cancer: No Hx Family GI Disorders: No Hx Family Endocrine Disorder: No Hx Family Neuromuscular Disorders: No Hx Family Neurologic Disorders: No Hx Family HEENT Disorders: No Hx Family Autoimmune Disorders: No Internal Medicine - H&P: Meds Levothyroxine [Synthroid] 50 mcg PO QAM 11/29/15 [History] Ferrous Gluconate 324 mg PO DAILY 01/12/17 [History] Multivits,Ca,Min/Iron/FA/Lycop [Centrum Men's Tablet] 1 tab PO DAILY 12/25/18 [History] Pantoprazole Sodium [Protonix] 40 mg PO QAM 12/25/18 [History] Ranitidine HCl [Heartburn Relief] 150 mg PO HS 12/25/18 [History] Vitamin E 400 unit PO QAM 12/25/18 [History] Allopurinol [Zyloprim 100 MG] 100 mg PO DAILY 03/20/19 [History] Aspirin Enteric Coated [Aspirin EC] 81 mg PO DAILY 03/20/19 [History] Cholecalciferol (Vitamin D3) [Vitamin D3] 5,000 unit PO DAILY 03/20/19 [History] Docusate Sodium [Stool Softener] 100 mg PO HS 03/20/19 [History] Furosemide [Lasix] 20 mg PO DAILY PRN 03/20/19 [History] Isosorbide MONOnitrate (24 HR) [Imdur] 30 mg PO QAM 03/20/19 [History] Losartan Potassium 25 mg PO DAILY 03/20/19 [History] Metoprolol Tartrate 50 mg PO BID 03/20/19 [History] Sertraline [Zoloft] 25 mg PO HS 03/20/19 [History] Simvastatin [Zocor] 20 mg PO HS 03/20/19 [History] Warfarin Sodium 2.5 mg PO JOHNSON 03/20/19 [History] Warfarin Sodium 5 mg PO MOTUWETHFRSA 03/20/19 [History] Insulin Degludec [Tresiba Flextouch U-100] 35 unit SQ HS #1 insuln.pen 03/21/19 [Rx] Tiotropium [Spiriva] 18 mcg IH DAILY@0700 #1 inh 03/21/19 [Rx] Doxycycline 100 mg PO BID #14 capsule 04/11/19 [Rx] Allergy/AdvReac Type Severity Reaction Status Date / Time morphine Allergy Rash Verified 03/20/19 15:26 All Systems PM: A 10-system review of systems was performed and is negative for pertinent find ings except as documented above in the HPI. - Constitutional Constitutional: no chills, no fever(s), no night sweats - EENT Eyes: no change in vision, no discharge, no pain, no photophobia Ears: no ear discharge, no ear pain, no tinnitus Nose, mouth and throat: no dysphagia, no nasal discharge, no neck pain, no sore throat - Cardiovascular Cardiovascular ROS IM: no chest pain, no diaphoresis, no dyspnea, no lightheadedness, no palpitations, no syncope - Respiratory Respiratory: no cough, no dyspnea, no wheezing, no excessive phlegm production - Gastrointestinal Gastrointestinal: no abdominal pain, no diarrhea, no hematemesis, no hematochezia, no melena, no nausea, no vomiting - Musculoskeletal Musculoskeletal ROS IM: no numbness, no tingling - Integumentary Integumentary IM: no rash, no unusual bruising - Neurological Neurological ROS: no confusion, no convulsions, no focal weakness, no numbness, no tingling, no tremor(s) - Hematologic/Lymphatic Hematologic/Lymphatic: no easy bruising - Constitutional Vitals: Temp Pulse Resp BP Pulse Ox 98.5 F 79 17 150/75 92 04/12/19 23:09 04/12/19 23:09 04/12/19 23:09 04/12/19 23:09 04/12/19 23:09 Exam: General: Alert and oriented 3 lying in bed in no acute distress Skin:Normal color, no rash, no lesions. HEENT:EOM, pupils equal, round and reactive. Cardiovascular:Normal S1 & S2, no rubs, murmurs or gallops. No JVD. Pulse regular. Lungs:Normal breath sounds, no wheezes or crackles. Abdomen:Soft, non-tender, no rigidity. Extremities: 1+ pitting edema bilaterally with left lower extremity greater in size than right. Neurological:Normal cognition and motor skills. Pulses:Carotid and radial pulses normal +2. Rest of the physical exam is non contributory Internal Med - H&P Results - Labs CBC & Chem 7: 04/13/19 03:41 04/13/19 03:41 Labs: Short CBC 04/12/19 Range/Units 18:44 WBC 8.5 (4.3-11.1) K/mcL Hgb 13.1 (12.9-16.9) g/dL Hct 40.8 (37.5-50.1) % Plt Count 222 (140-400) K/mcL Neutrophils # 4.8 (1.6-8.9) K/mcL BMP 04/12/19 18:44 Sodium 138 Potassium 3.6 Chloride 101 Carbon Dioxide 27 BUN 26 H Creatinine 2.40 H Glucose 363 H Calcium 9.0 Cardiac Enzymes 04/12/19 Range/Units 18:44 Troponin I < 0.03 (< 0.04) ng/mL - Impressions ITS Impressions Chest X-Ray 04/12/19 18:20 IMPRESSION: Persistent linear infiltrate right lower lobe. Otherwise, stable chest D/ / Dominik Haynes MD / Dominik Haynes MD Interpreting Provider: Dominik Haynes MD Chest CT 04/13/19 00:05 IMPRESSION: Hazy opacity right lower lung suspicious of pneumonia or pneumonitis. Emphysema. D/ / Danyel Rosales / Danyel Rosales Interpreting Provider: Danyel Rosales - Assessment and Plan (1) Dyspnea Current Visit: Yes Status: Acute Assessment and plan: Patient presenting with 3 day history of dyspnea with lower extremity edema, reported wheezing and right lower lobe infiltrate concerning for pneumonia. Patient also found to have a discrepancy in size of his lower extremities with left greater than right. Patient is currently on anticoagulation with warfarin. Etiology of patient's dyspnea likely multifactorial including mild CHF exacerbation, COPD exacerbation and pneumonia. No appreciable crackles or wheezes were appreciated on lung examination, however, patient received nebulizer treatment in the ED in addition steroids. Currently stable from respiratory standpoint. -Continue supportive care as needed. -Continue broad-spectrum antibiotic coverage for possible right lower lobe pneumonia. -We will treat for mild CHF and possible COPD exacerbation. -Consider leftft lower extremity DVT study Qualifiers: Dyspnea type: unspecified Qualified Code(s): R06.00 - Dyspnea, unspecified (2) CHF exacerbation Current Visit: No Status: Acute Assessment and plan: Increased lower extremity edema in the setting of heart failure with preserved ejection fraction. Patient had recent echo in January showing EF of 55-60% with normal LV chamber size and function and mild concentric left ventricular hypertrophy. Mild left ventricular diastolic dysfunction. No significant valvu lar dysfunction. BNP today 93. BNP was also measured yesterday which was 196. -Continue strict I's and O's; daily weights -We will give Lasix 20 mg IV push and daily. -Fluid restriction of 1.5 L per day -Monitor kidney function. Qualifiers: Heart failure type: unspecified Qualified Code(s): I50.9 - Heart failure, unspecified (3) Pneumonia Current Visit: Yes Status: Acute Assessment and plan: Patient presenting with shortness of breath and cough that has been nonproductive. Chest CT showing a right lower lobe infiltrate concerning for pneumonia versus pneumonitis which is a new as compared to previous admission for. The patient did have a elevated procalcitonin despite the absence of fever or leukocytosis. -Continue with broad-spectrum coverage -Follow-up blood cultures, urine antigens; respiratory viral panel Qualifiers: Pneumonia type: due to unspecified organism Laterality: right Lung location: lower lobe of lung Qualified Code(s): J18.1 - Lobar pneumonia, unspecified organism (4) COPD exacerbation Current Visit: No Status: Chronic Assessment and plan: Patient reports increased wheezing and shortness of breath. Concern for possible mild CHF exacerbation. Patient received one-time dose of DuoNeb's and steroids in the ED. -Continue duo nebs and steroids. (5) Lower extremity edema Current Visit: Yes Status: Acute Assessment and plan: 1+ lower extremity edema bilaterally with left lower calf greater in size and right. Patient does have history of PE and is currently on warfarin. Suspect likely secondary to mild CHF exacerbation. Consider venous duplex to rule out DVT. Continue warfarin for now. (6) Chronic renal disease, stage IV Current Visit: Yes Status: Acute Assessment and plan: History of stage IV chronic kidney disease. Appears to be at baseline. We will continue to monitor in the setting of treatment with Lasix. (7) CAD (coronary artery disease) Current Visit: No Status: Chronic Assessment and plan: No reports of chest pain. Continue medical management. Qualifiers: Coronary Disease-Associated Artery/Lesion type: [place] artery [place] vs. transplanted heart: [place] heart Associated angina: without angina Qualified Code(s): I25.10 - Atherosclerotic heart disease of [place] coronary artery without angina pectoris (8) Diabetes mellitus Current Visit: No Status: Chronic Assessment and plan: Blood glucose checks. 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 Follow-up INR. - Time Spent With Patient Total time spent is greater than 50% in coordination of care (as documented) at patient's floor/unit and/or counseling patient:
[2019-04-13] MEDS: Ipratropium/Albuterol Neb 3 ML IH SCH ×7 (03:33→23:00)
[2019-04-13 04:22] LABS: Basophils % 0.4 %; Eosinophils % 0.1 %; Hematocrit 41.3 % (37.5-50.1); Immature Granulocytes % 0.6 % (0-4); Lymphocytes # 0.6 K/mcL (0.6-4.6); Lymphocytes % 8.4 %; Mean Corpuscular HGB Conc 31.5 g/dL (31.6-35.5); Mean Corpuscular Hemoglobin 29.5 pg (28.0-33.3); Mean Corpuscular Volume 93.9 fL (83.0-100.0); Mean Platelet Volume 11.8 fL (9.4-12.4); Monocytes % 0.4 %; Neutrophils # 6.3 K/mcL (1.6-8.9); Platelet Count 203 K/mcL (140-400); Red Cell Distribution Width 15.4 % (11.5-14.5); Segmented Neutrophils % 90.1 %
[2019-04-13 04:33] LABS: INR 2.3
[2019-04-13 04:50] LABS: Albumin 3.7 g/dL (3.5-5.7); Albumin/Globulin Ratio 1.4 (1.1-2.2); Bilirubin,Total 0.5 mg/dL (0.3-1.0); Calcium 8.7 mg/dL (8.6-10.3); Globulin 2.7 g/dL (2.4-3.5); Magnesium 1.8 mg/dL (1.6-2.6); Phosphorous 2.8 mg/dL (2.7-4.5); Potassium 4.4 mEq/L (3.5-5.1); Total Protein 6.4 g/dL (6.4-8.9)
[2019-04-13] MEDS ORDERED: Insulin DETEMIR 100 UNIT/ML X5UNITS SQ ONE (04:55)
[2019-04-13 09:08] LABS: Adenovirus Not Detected (Not Detect); Bordetella Pertussis Not Detected (Not Detect); Chlamydophila pneumoniae Not Detected (Not Detect); Coronavirus 229E Not Detected (Not Detect); Coronavirus HKU1 Not Detected (Not Detect); Coronavirus NL63 Not Detected (Not Detect); Coronavirus OC43 Not Detected (Not Detect); Human Metapneumovirus Not Detected (Not Detect); Human Rhinovirus/Enterovirus Not Detected (Not Detect); Influenza A Subtype 2009 H1 Not Detected (Not Detect); Influenza A Untypeable Not Detected (Not Detect); Influenza B Not Detected (Not Detect); Mycoplasma pneumoniae Not Detected (Not Detect); Parainfluenza Virus 1 Not Detected (Not Detect); Parainfluenza Virus 2 Not Detected (Not Detect); Parainfluenza Virus 3 Not Detected (Not Detect); Parainfluenza Virus 4 Not Detected (Not Detect); Respiratory Syncytial Virus Not Detected (Not Detect)
[2019-04-13] MEDS: Cholecalciferol (D-3) 1,000 UNIT (25MCG) TABLET PO SCH (09:15)
[2019-04-13] MEDS: Isosorbide MONOnitrate (24 HR) 30 MG TAB.ER.24H PO SCH (09:15)
[2019-04-13] MEDS: Azithromycin 250 MG TABLET PO SCH (09:15)
[2019-04-13] MEDS: Aspirin Enteric Coated 81 MG Tablet PO SCH (09:15)
[2019-04-13] MEDS: Insulin LISPRO 300 UNITS/3 ML VIAL SQ SCH ×3 (09:16→17:24)
--- NOTE | 2019-04-13 10:56 | Internal Med Progress Note ---
Hospitalist Progress Note - Encounter Date of Encounter: 04/13/19 Time of Encounter: 10:53 - Subjective Interval History: Patient hyperglycemic this morning. Steroids de-escalated and increased insulin dosing. - Exam Vitals: Temp Pulse Resp BP Pulse Ox 98.2 F 99 19 136/77 95 04/13/19 07:47 04/13/19 07:47 04/13/19 07:47 04/13/19 07:47 04/13/19 09:10 Exam: General: Ill-appearing and in no acute distress. Very hard of hearing. HEENT: No erythema of posterior pharynx. No exudates. Lymphatics: No mandibular or cervical lymphadenopathy Cardiovascular: RRR. No murmurs. No chest wall tenderness. Lungs: Faint wheezing. Decreased breath sounds throughout. Regular chest rise. Abdomen: Non-tender. No rebound or gaurding. Nl bowel sounds. Extremities: Trace edema. 2+ pulses radial and pedal pulses Skin: No rahses, abrasions, or contusions. Nl cap refill. Psych: Nl attention. A&Ox3 Neuro: medical service representative II-XII intact. 5/5 strength. Sensation to light touch and pinprick intact. - Assessment and Plan (1) Acute and chronic respiratory failure with hypoxia Current Visit: Yes Status: Acute Assessment and Plan: Patient with history of chronic respiratory failure secondary to severe COPD and HFpEF presents with dyspnea and cough in the setting of stable vital signs but with use of supplemental oxygen, wheezing on physical exam, BNP above BL, nl WBC count, and chest x-ray with concern for LL PNA. -Recently admitted with a similar presentation and hypervolemic at that time. Lasix dose was not changed because of patient's severe renal dysfunction Will likely need to increase Lasix dose this admission If renal function worsens, may need to consult nephrology -This admission appears the patient has cough and evidence of pneumonia as well We will de-escalate community pneumonia coverage We will also complete a swallow screen given this is likely with an aspiration event -Wheezing on exam less likely decompensated COPD on top of other pathology We will de-escalate steroids given hyperglycemia PLAN: - Lasix 20MG IV qd - Strict I&O and daily standing weights - Ceftriaxone and Azithromycin - AFTER SCHOOL DRIVER consult for swallow screen - Prednisone 40mg qd and Duo-nebs scheduled (2) Community acquired pneumonia Current Visit: No Status: Acute Assessment and Plan: See above (3) COPD exacerbation Current Visit: No Status: Chronic Assessment and Plan: The above (4) CHF exacerbation Current Visit: No Status: Acute Assessment and Plan: See above (5) Chronic renal disease, stage IV Current Visit: Yes Status: Acute Assessment and Plan: Currently at baseline, however, this will limit patient's ability to diurese. - Diuresis per above - We will consult nephrology if worsening creatinine (6) Diabetes mellitus Current Visit: No Status: Chronic Assessment and Plan: Will need tighter glucose control in the setting of prednisone use. - Lantus 20 units twice a day - Sliding scale (7) CAD (coronary artery disease) Current Visit: No Status: Chronic Assessment and Plan: No reports of chest pain. Continue medical management. DVT Prophylaxis: Warfarin Internal Medicine: Result - Labs CBC & Chem 7: 04/13/19 03:41 04/13/19 03:41 Labs: Short CBC 04/12/19 04/13/19 Range/Units 18:44 03:41 WBC 8.5 7.0 (4.3-11.1) K/mcL Hgb 13.1 13.0 (12.9-16.9) g/dL Hct 40.8 41.3 (37.5-50.1) % Plt Count 222 203 (140-400) K/mcL Neutrophils # 4.8 6.3 (1.6-8.9) K/mcL BMP 04/12/19 04/13/19 18:44 03:41 Sodium 138 134 L Potassium 3.6 4.4 Chloride 101 102 Carbon Dioxide 27 22 L BUN 26 H 28 H Creatinine 2.40 H 2.13 H Glucose 363 H 549 H* Calcium 9.0 8.7 Cardiac Enzymes 04/12/19 Range/Units 18:44 Troponin I < 0.03 (< 0.04) ng/mL Liver Function 04/13/19 Range/Units 03:41 Total Bilirubin 0.5 (0.3-1.0) mg/dL AST 14 (13-39) Units/L ALT 11 (7-52) Units/L Alkaline Phosphatase 72 (34-104) Units/L Albumin 3.7 (3.5-5.7) g/dL - ABG Interpretation ABG results: PT/INR, D-dimer PT 26.0 Seconds (9.4-12.1) H 04/13/19 03:41 - Impressions Impressions Chest X-Ray 04/12/19 18:20 IMPRESSION: Persistent linear infiltrate right lower lobe. Otherwise, stable chest D/ / Dominik Haynes MD / Dominik Haynes MD Interpreting Provider: Dominik Haynes MD Chest CT 04/13/19 00:05 IMPRESSION: Hazy opacity right lower lung suspicious of pneumonia or pneumonitis. Emphysema. 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 transplanted heart: [place] heart Associated angina: without angina Qualified Code(s): I25.10 - Atherosclerotic heart disease of [place] coronary artery without angina pectoris
[2019-04-13] MEDS: Insulin DETEMIR 100 UNIT/ML X5UNITS SQ SCH ×2 (11:47→20:34)
[2019-04-13] MEDS: cefTRIAXone 2,000 MG in Water for inj. (sterile) 20 ML IVP SCH (11:48)
[2019-04-13] MEDS ORDERED: Piperacillin/Tazobactam 3.375 GM in 0.9 % Sodium Chloride Mini Bag 100 ML IVPB SCH (12:00)
[2019-04-13] MEDS ORDERED: E-Z-HD (BARIUM SULF) SUSPENSION PO ONE (15:18)
[2019-04-13] MEDS ORDERED: E-Z-PAQUE (BARIUM SULF) SUSP 1 BOTTLE PO ONE (15:18)
[2019-04-13] MEDS: predniSONE 20 MG TABLET PO SCH (16:26)
[2019-04-13] MEDS ORDERED: Warfarin perPT PO PRN (18:00)
[2019-04-13] MEDS ORDERED: *HR* Warfarin 4 MG TABLET PO ONE (18:00)
[2019-04-13] MEDS: Famotidine 20 MG TABLET PO SCH (20:33)
[2019-04-13] MEDS: Furosemide 20 MG/2 ML VIAL IVP SCH (22:28)
[2019-04-14 02:50] LABS: INR 2.1; Prothrombin Time 24.3 Seconds (9.4-12.1)
[2019-04-14 03:01] LABS: Calcium 9.1 mg/dL (8.6-10.3); Magnesium 1.9 mg/dL (1.6-2.6); Potassium 4.2 mEq/L (3.5-5.1)
[2019-04-14] MEDS: Ipratropium/Albuterol Neb 3 ML IH SCH ×5 (03:40→20:00)
[2019-04-14] MEDS: Insulin LISPRO 300 UNITS/3 ML VIAL SQ SCH ×3 (08:19→17:10)
[2019-04-14] MEDS: Cholecalciferol (D-3) 1,000 UNIT (25MCG) TABLET PO SCH (09:24)
[2019-04-14] MEDS: Aspirin Enteric Coated 81 MG Tablet PO SCH (09:25)
[2019-04-14] MEDS: Isosorbide MONOnitrate (24 HR) 30 MG TAB.ER.24H PO SCH (09:25)
[2019-04-14] MEDS: Azithromycin 250 MG TABLET PO SCH (09:25)
[2019-04-14] MEDS: predniSONE 20 MG TABLET PO SCH (09:25)
[2019-04-14] MEDS: Insulin DETEMIR 100 UNIT/ML X5UNITS SQ SCH ×2 (09:26→21:21)
[2019-04-14] MEDS: Furosemide 20 MG/2 ML VIAL IVP SCH (09:26)
--- NOTE | 2019-04-14 11:20 | Internal Med Progress Note ---
Hospitalist Progress Note - Encounter Date of Encounter: 04/14/19 Time of Encounter: 11:15 - Subjective Interval History: Patient feeling subjectively improved today. Weight today of 110kg, which is about patient's baseline. - Exam Vitals: Temp Pulse Resp BP Pulse Ox 97.6 F 92 17 148/79 93 04/14/19 07:53 04/14/19 07:53 04/14/19 07:53 04/14/19 07:53 04/14/19 07:53 Exam: General: Ill-appearing and in no acute distress. Very hard of hearing. HEENT: No erythema of posterior pharynx. No exudates. Lymphatics: No mandibular or cervical lymphadenopathy Cardiovascular: RRR. No murmurs. No chest wall tenderness. Lungs: Faint wheezing. Decreased breath sounds throughout. Regular chest rise. Abdomen: Non-tender. No rebound or gaurding. Nl bowel sounds. Extremities: Trace edema. 2+ pulses radial and pedal pulses Skin: No rahses, abrasions, or contusions. Nl cap refill. Psych: Nl attention. A&Ox3 Neuro: hand ii blocker II-XII intact. 5/5 strength. Sensation to light touch and pinprick intact. - Assessment and Plan (1) Acute and chronic respiratory failure with hypoxia Current Visit: Yes Status: Acute Assessment and Plan: Patient with history of chronic respiratory failure secondary to severe COPD and HFpEF presents with dyspnea and cough in the setting of stable vital signs but with use of supplemental oxygen, wheezing on physical exam, BNP above BL, nl WBC count, and chest x-ray with concern for LL PNA. -Recently admitted with a similar presentation and hypervolemic at that time. Lasix dose was not changed because of patient's severe renal dysfunction Will likely need to increase Lasix dose this admission Creatinine bump but still within patient's baseline. Weight 110kg but hard to determine patient's BL. Will continue IV diuresis for 1 more day. If renal function worsens, may need to consult nephrology -This admission appears the patient has cough and evidence of pneumonia as well Community pneumonia coverage Swallow screen completed and POLICY ADVISER instructing patient on chin-tuck when eating to avoid aspiration -Wheezing on exam less likely decompensated COPD on top of other pathology Will complete 5d course of prednisone -Family says that the patient sits outside on porch and has seasonal allergies We will initiate Claritin PLAN: - Lasix 20MG IV qd - Strict I&O and daily standing weights - Ceftriaxone and Azithromycin - POLICY ADVISER following to modify swallow - Prednisone 40mg qd and Duo-nebs scheduled - Claritin 10mg qd (2) Community acquired pneumonia Current Visit: No Status: Acute Assessment and Plan: See above (3) COPD exacerbation Current Visit: No Status: Chronic Assessment and Plan: The above (4) CHF exacerbation Current Visit: No Status: Acute Assessment and Plan: See above (5) Chronic renal disease, stage IV Current Visit: Yes Status: Acute Assessment and Plan: Currently at baseline, however, this will limit patient's ability to diurese. - Diuresis per above - We will consult nephrology if worsening creatinine (6) Diabetes mellitus Current Visit: No Status: Chronic Assessment and Plan: Will need tighter glucose control in the setting of prednisone use. - Lantus 25 units twice a day - Sliding scale (7) CAD (coronary artery disease) Current Visit: No Status: Chronic Assessment and Plan: No reports of chest pain. Continue medical management. DVT Prophylaxis: Warfarin Internal Medicine: Result - Labs CBC & Chem 7: 04/13/19 03:41 04/14/19 02:26 Labs: BMP 04/14/19 02:26 Sodium 137 Potassium 4.2 Chloride 103 Carbon Dioxide 22 L BUN 38 H Creatinine 2.37 H Glucose 273 H Calcium 9.1 - ABG Interpretation ABG results: PT/INR, D-dimer PT 24.3 Seconds (9.4-12.1) H 04/14/19 02:26 - Impressions Impressions Videofluoroscopic Swallow 04/13/19 11:41 IMPRESSION: Aspiration only with thin liquids, which improved in the chin-tuck position. Please see separate speech pathology report for full discussion of findings and recommendations. 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 transplanted heart: [place] heart Associated angina: without angina Qualified Code(s): I25.10 - Atherosclerotic heart disease of [place] coronary artery without angina pectoris
[2019-04-14] MEDS: cefTRIAXone 2,000 MG in Water for inj. (sterile) 20 ML IVP SCH (12:14)
[2019-04-14] MEDS: Loratadine 10 MG TABLET PO SCH (12:15)
[2019-04-14] MEDS ORDERED: *HR* LORazepam 0.5 MG TABLET PO ONE (12:19)
--- NOTE | 2019-04-14 14:54 | Electrocardiograph Report ---
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
[2019-04-14] MEDS ORDERED: *HR* Warfarin 5 MG TABLET PO ONE (18:00)
[2019-04-14] MEDS ORDERED: *HR* Warfarin 5 MG TABLET PO SCH (18:00)
[2019-04-14] MEDS: Famotidine 20 MG TABLET PO SCH (21:21)
[2019-04-15] MEDS: Ipratropium/Albuterol Neb 3 ML IH SCH ×7 (00:05→23:30)
[2019-04-15 02:52] LABS: INR 2.2
[2019-04-15 03:07] LABS: Calcium 9.4 mg/dL (8.6-10.3); Potassium 4.7 mEq/L (3.5-5.1)
--- NOTE | 2019-04-15 09:24 | Internal Med Progress Note ---
Hospitalist Progress Note - Encounter Date of Encounter: 04/15/19 Time of Encounter: 09:21 - Subjective Interval History: Patient feeling pretty good this morning. Discussed case with patient's son. Would like patient to be placed in a rehabilitation center after discharge. PT recommends SNF as well. - Exam Vitals: Temp Pulse Resp BP Pulse Ox 98.1 F 80 16 154/83 95 04/15/19 07:34 04/15/19 07:34 04/15/19 07:34 04/15/19 07:34 04/15/19 07:34 Exam: General: Ill-appearing and in no acute distress. Very hard of hearing. HEENT: No erythema of posterior pharynx. No exudates. Lymphatics: No mandibular or cervical lymphadenopathy Cardiovascular: RRR. No murmurs. No chest wall tenderness. Lungs: Faint wheezing. Decreased breath sounds throughout. Regular chest rise. Abdomen: Non-tender. No rebound or gaurding. Nl bowel sounds. Extremities: Trace edema. 2+ pulses radial and pedal pulses Skin: No rahses, abrasions, or contusions. Nl cap refill. Psych: Nl attention. A&Ox3 Neuro: net developer II-XII intact. 5/5 strength. Sensation to light touch and pinprick intact. - Assessment and Plan (1) Acute and chronic respiratory failure with hypoxia Current Visit: Yes Status: Acute Assessment and Plan: Patient with history of chronic respiratory failure secondary to severe COPD and HFpEF presents with dyspnea and cough in the setting of stable vital signs but with use of supplemental oxygen, wheezing on physical exam, BNP above BL, nl WBC count, and chest x-ray with concern for LL PNA. -Recently admitted with a similar presentation and hypervolemic at that time. Lasix dose was not changed because of patient's severe renal dysfunction Will likely need to increase Lasix dose this admission Creatinine at patient's baseline. Weight 110kg --> 109kg. Will increase to 40 mg oral Lasix - possibly send out on this dose If renal function worsens, may need to consult nephrology -This admission appears the patient has cough and evidence of pneumonia as well Community pneumonia coverage - can switch to orals today Swallow screen completed and DIRECTOR OF CHANNEL MARKETING instructing patient on chin-tuck when eating to avoid aspiration Speech recommending patient switched to nectar thick given noncompliant with chin tuck -Wheezing on exam less likely decompensated COPD on top of other pathology Will complete 5d course of prednisone -Family says that the patient sits outside on porch and has seasonal allergies We will initiate Claritin PLAN: - Lasix 20MG IV qd --> 40mg oral - Strict I&O and daily standing weights - Ceftriaxone and Azithromycin --> Cefdinir and azithromycin oral - DIRECTOR OF CHANNEL MARKETING following to modify swallow - nectar thick liquids - Prednisone 40mg qd and Duo-nebs scheduled - Claritin 10mg qd (2) Community acquired pneumonia Current Visit: No Status: Acute Assessment and Plan: See above (3) COPD exacerbation Current Visit: No Status: Chronic Assessment and Plan: The above (4) CHF exacerbation Current Visit: No Status: Acute Assessment and Plan: See above (5) Chronic renal disease, stage IV Current Visit: Yes Status: Acute Assessment and Plan: Currently at baseline, however, this will limit patient's ability to diurese. - Diuresis per above - We will consult nephrology if worsening creatinine (6) Diabetes mellitus Current Visit: No Status: Chronic Assessment and Plan: Will need tighter glucose control in the setting of prednisone use. - Lantus 25 units twice a day - Sliding scale (7) CAD (coronary artery disease) Current Visit: No Status: Chronic Assessment and Plan: No reports of chest pain. Continue medical management. DVT Prophylaxis: Warfarin - Time Spent with Patient Total time spent is greater than 50% in coordination of care (as documented) at patient's floor/unit and/or counseling patient: Internal Medicine: Result - Labs CBC & Chem 7: 04/13/19 03:41 04/15/19 01:52 Labs: BMP 04/15/19 01:52 Sodium 138 Potassium 4.7 Chloride 102 Carbon Dioxide 25 BUN 48 H Creatinine 2.18 H Glucose 254 H Calcium 9.4 - ABG Interpretation ABG results: PT/INR, D-dimer PT 25.0 Seconds (9.4-12.1) H 04/15/19 01:52 Consult Discharge Plan - Plan Referrals: Mouna Carrasquillo MD [Primary Care Provider] - (4) CHF exacerbation Qualifiers: Heart failure type: unspecified Qualified Code(s): I50.9 - Heart failure, unspecified (6) Diabetes mellitus 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 insulin use: with longterm use Diabetes mellitus complication status: without complication Qualified Code(s): E11.9 - Type 2 diabetes mellitus without complications; Z79.4 - care home (current) use of insulin (7) CAD (coronary artery disease) Qualifiers: Coronary Disease-Associated Artery/Lesion type: [place] artery [place] vs. transplanted heart: [place] heart Associated angina: without angina Qualified Code(s): I25.10 - Atherosclerotic heart disease of [place] coronary artery without angina pectoris
[2019-04-15] MEDS ORDERED: Azithromycin 250 MG TABLET PO SCH (09:30)
[2019-04-15] MEDS ORDERED: Cefdinir 300 MG CAPSULE PO SCH (09:30)
[2019-04-15] MEDS: Insulin LISPRO 300 UNITS/3 ML VIAL SQ SCH ×3 (09:46→16:35)
[2019-04-15] MEDS: Azithromycin 250 MG TABLET PO SCH ×2 (09:46→09:48)
[2019-04-15] MEDS: Insulin DETEMIR 100 UNIT/ML X5UNITS SQ SCH ×2 (09:47→20:36)
[2019-04-15] MEDS: Furosemide 20 MG/2 ML VIAL IVP SCH (09:48)
[2019-04-15] MEDS: predniSONE 20 MG TABLET PO SCH (09:49)
[2019-04-15] MEDS: Aspirin Enteric Coated 81 MG Tablet PO SCH (09:49)
[2019-04-15] MEDS: Loratadine 10 MG TABLET PO SCH (09:49)
[2019-04-15] MEDS: Cholecalciferol (D-3) 1,000 UNIT (25MCG) TABLET PO SCH (09:49)
[2019-04-15] MEDS: Isosorbide MONOnitrate (24 HR) 30 MG TAB.ER.24H PO SCH (09:49)
[2019-04-15] MEDS: Cefdinir 300 MG CAPSULE PO SCH (14:30)
[2019-04-15] MEDS: Furosemide 40 MG TABLET PO SCH (14:30)
[2019-04-15] MEDS ORDERED: *HR* Warfarin 4 MG TABLET PO ONE (18:00)
[2019-04-15] MEDS: Famotidine 20 MG TABLET PO SCH (20:36)
[2019-04-16] MEDS: Ipratropium/Albuterol Neb 3 ML IH SCH ×6 (04:21→23:30)
[2019-04-16] MEDS: Insulin LISPRO 300 UNITS/3 ML VIAL SQ SCH ×3 (07:01→16:29)
[2019-04-16] MEDS: Cholecalciferol (D-3) 1,000 UNIT (25MCG) TABLET PO SCH (07:07)
[2019-04-16] MEDS: Cefdinir 300 MG CAPSULE PO SCH (07:07)
[2019-04-16] MEDS: Aspirin Enteric Coated 81 MG Tablet PO SCH (07:07)
[2019-04-16] MEDS: Azithromycin 250 MG TABLET PO SCH (07:07)
[2019-04-16] MEDS: Isosorbide MONOnitrate (24 HR) 30 MG TAB.ER.24H PO SCH (07:07)
[2019-04-16] MEDS: Loratadine 10 MG TABLET PO SCH (07:07)
[2019-04-16] MEDS: predniSONE 20 MG TABLET PO SCH (07:07)
[2019-04-16] MEDS: Furosemide 40 MG TABLET PO SCH (07:07)
[2019-04-16] MEDS: Insulin DETEMIR 100 UNIT/ML X5UNITS SQ SCH ×2 (07:25→21:18)
[2019-04-16 08:03] LABS: Hematocrit 40.9 % (37.5-50.1); Mean Corpuscular HGB Conc 31.8 g/dL (31.6-35.5); Mean Corpuscular Hemoglobin 30.7 pg (28.0-33.3); Mean Corpuscular Volume 96.5 fL (83.0-100.0); Mean Platelet Volume 11.5 fL (9.4-12.4); Platelet Count 247 K/mcL (140-400); Red Blood Count 4.24 M/mcL (4.19-5.50); Red Cell Distribution Width 15.9 % (11.5-14.5)
[2019-04-16 08:12] LABS: INR 2.3
[2019-04-16 08:23] LABS: Calcium 9.6 mg/dL (8.6-10.3); Potassium 4.3 mEq/L (3.5-5.1)
--- NOTE | 2019-04-16 10:13 | Internal Med Progress Note ---
Hospitalist Progress Note - Encounter Date of Encounter: 04/16/19 Time of Encounter: 10:10 - Subjective Interval History: Patient doing well this morning and says that his breathing is improved. Creatinine stable. Slight leukocytosis. Last dose of prednisone today. Discussed clipping of toenails with son who would like to get this done in the hospital. Sparse podiatry average on the weekend will not make this possible. - Exam Vitals: Temp Pulse Resp BP Pulse Ox 98.1 F 75 22 179/88 95 04/16/19 07:21 04/16/19 07:21 04/16/19 07:37 04/16/19 07:21 04/16/19 07:37 Exam: General: Ill-appearing and in no acute distress. Very hard of hearing. HEENT: No erythema of posterior pharynx. No exudates. Lymphatics: No mandibular or cervical lymphadenopathy Cardiovascular: RRR. No murmurs. No chest wall tenderness. Lungs: Faint wheezing. Decreased breath sounds throughout. Regular chest rise. Abdomen: Non-tender. No rebound or gaurding. Nl bowel sounds. Extremities: Trace edema. 2+ pulses radial and pedal pulses Skin: No rahses, abrasions, or contusions. Nl cap refill. Psych: Nl attention. A&Ox3 Neuro: tar boiler II-XII intact. 5/5 strength. Sensation to light touch and pinprick intact. - Assessment and Plan (1) Acute and chronic respiratory failure with hypoxia Current Visit: Yes Status: Acute Assessment and Plan: Patient with history of chronic respiratory failure secondary to severe COPD and HFpEF presents with dyspnea and cough in the setting of stable vital signs but with use of supplemental oxygen, wheezing on physical exam, BNP above BL, nl WBC count, and chest x-ray with concern for LL PNA. -Recently admitted with a similar presentation and hypervolemic at that time. Lasix dose was not changed because of patient's severe renal dysfunction Will likely need to increase Lasix dose this admission Creatinine at patient's baseline on higher oral dose of Lasix. Likely due to discharged on this dose. If renal function worsens, may need to consult nephrology -This admission appears the patient has cough and evidence of pneumonia as well Community pneumonia coverage - last day of antibiotics Swallow screen completed and OCEAN FREIGHT FORWARDER instructing patient on chin-tuck when eating to avoid aspiration [place] thick given noncompliant with chin tuck -Wheezing on exam less likely decompensated COPD on top of other pathology Will complete 5d course of prednisone - last day of prednisone -Family says that the patient sits outside on porch and has seasonal allergies We will initiate Claritin PLAN: - Lasix 40mg oral - Strict I&O and daily standing weights - Cefdinir and azithromycin oral - OCEAN FREIGHT FORWARDER following to modify swallow - nectar thick liquids - S/p Prednisone 40mg qd x5d - Duo-nebs scheduled - Claritin 10mg qd - 6 minute walk test (2) Community acquired pneumonia Current Visit: No Status: Acute Assessment and Plan: See above (3) COPD exacerbation Current Visit: No Status: Chronic Assessment and Plan: The above (4) CHF exacerbation Current Visit: No Status: Acute Assessment and Plan: See above (5) Chronic renal disease, stage IV Current Visit: Yes Status: Acute Assessment and Plan: Currently at baseline, however, this will limit patient's ability to diurese. - Diuresis per above - We will consult nephrology if worsening creatinine (6) Diabetes mellitus Current Visit: No Status: Chronic Assessment and Plan: Will need tighter glucose control in the setting of prednisone use. - Lantus 25 units twice a day - Sliding scale (7) CAD (coronary artery disease) Current Visit: No Status: Chronic Assessment and Plan: No reports of chest pain. Continue medical management. DVT Prophylaxis: Warfarin - Time Spent with Patient Total time spent is greater than 50% in coordination of care (as documented) at patient's floor/unit and/or counseling patient: Internal Medicine: Result - Labs CBC & Chem 7: 04/16/19 07:41 04/16/19 07:41 Labs: Short CBC 04/16/19 Range/Units 07:41 WBC 12.0 H D (4.3-11.1) K/mcL Hgb 13.0 (12.9-16.9) g/dL Hct 40.9 (37.5-50.1) % Plt Count 247 (140-400) K/mcL BMP 04/16/19 07:41 Sodium 143 Potassium 4.3 Chloride 103 Carbon Dioxide 27 BUN 60 H Creatinine 2.31 H Glucose 130 H Calcium 9.6 - ABG Interpretation ABG results: PT/INR, D-dimer PT 26.0 Seconds (9.4-12.1) H 04/16/19 07:41 Consult Discharge Plan - Plan Referrals: Mouna Carrasquillo MD [Primary Care Provider] - () (4) CHF exacerbation Qualifiers: Heart failure type: unspecified Qualified Code(s): I50.9 - Heart failure, unspecified (6) Diabetes mellitus Qualifiers: Diabetes mellitus type: type 2 Diabetes mellitus local intermodal truck driver insulin use: with local intermodal truck driver use Diabetes mellitus complication status: without complication Qualified Code(s): E11.9 - Type 2 diabetes mellitus without complications; 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 (7) CAD (coronary artery disease) Qualifiers: Coronary Disease-Associated Artery/Lesion type: [place] artery [place] vs. transplanted heart: [place] heart Associated angina: without angina Qualified Code(s): I25.10 - Atherosclerotic heart disease of [place] coronary artery without angina pectoris
[2019-04-16] MEDS ORDERED: *HR* Warfarin 4 MG TABLET PO ONE (18:00)
[2019-04-16] MEDS: Melatonin 3 MG TABLET PO SCH (21:18)
[2019-04-16] MEDS: Famotidine 20 MG TABLET PO SCH (21:18)
[2019-04-17] MEDS: Ipratropium/Albuterol Neb 3 ML IH SCH ×6 (03:14→23:25)
[2019-04-17 05:42] LABS: INR 2.2; Prothrombin Time 25.3 Seconds (9.4-12.1)
[2019-04-17 05:55] LABS: Calcium 9.5 mg/dL (8.6-10.3); Potassium 4.2 mEq/L (3.5-5.1)
[2019-04-17] MEDS: Insulin LISPRO 300 UNITS/3 ML VIAL SQ SCH ×3 (08:07→16:58)
[2019-04-17] MEDS: Loratadine 10 MG TABLET PO SCH (08:13)
[2019-04-17] MEDS: Cefdinir 300 MG CAPSULE PO SCH (08:13)
[2019-04-17] MEDS: Isosorbide MONOnitrate (24 HR) 30 MG TAB.ER.24H PO SCH (08:13)
[2019-04-17] MEDS: Cholecalciferol (D-3) 1,000 UNIT (25MCG) TABLET PO SCH (08:13)
[2019-04-17] MEDS: Azithromycin 250 MG TABLET PO SCH (08:13)
[2019-04-17] MEDS: Aspirin Enteric Coated 81 MG Tablet PO SCH (08:14)
[2019-04-17] MEDS: Furosemide 40 MG TABLET PO SCH (08:14)
--- NOTE | 2019-04-17 10:21 | Internal Med Progress Note ---
Hospitalist Progress Note - Encounter Date of Encounter: 04/17/19 Time of Encounter: 10:19 - Subjective Interval History: Patient doing well smiling. Weight is down. Creatinine is stable. Son concern the patient is not drinking as much. Would like nursing to try her chin tuck with thin liquids. This discussed with nursing. - Exam Vitals: Temp Pulse Resp BP Pulse Ox 97.7 F 66 18 152/84 94 04/17/19 07:23 04/17/19 07:23 04/17/19 07:29 04/17/19 07:29 04/17/19 08:18 Exam: General: Ill-appearing and in no acute distress. Very hard of hearing. HEENT: No erythema of posterior pharynx. No exudates. Lymphatics: No mandibular or cervical lymphadenopathy Cardiovascular: RRR. No murmurs. No chest wall tenderness. Lungs: Faint wheezing. Decreased breath sounds throughout. Regular chest rise. Abdomen: Non-tender. No rebound or gaurding. Nl bowel sounds. Extremities: Trace edema. 2+ pulses radial and pedal pulses Skin: No rahses, abrasions, or contusions. Nl cap refill. Psych: Nl attention. A&Ox3 Neuro: mattress maker II-XII intact. 5/5 strength. Sensation to light touch and pinprick intact. - Assessment and Plan (1) Acute and chronic respiratory failure with hypoxia Current Visit: Yes Status: Acute Assessment and Plan: Patient with history of chronic respiratory failure secondary to severe COPD and HFpEF presents with dyspnea and cough in the setting of stable vital signs but with use of supplemental oxygen, wheezing on physical exam, BNP above BL, nl WBC count, and chest x-ray with concern for LL PNA. -Recently admitted with a similar presentation and hypervolemic at that time. Lasix dose was not changed because of patient's severe renal dysfunction Will likely need to increase Lasix dose this admission Creatinine at patient's baseline on higher oral dose of Lasix. Likely will be discharged on this dose. If renal function worsens, may need to consult nephrology -This admission appears the patient has cough and evidence of pneumonia as well Community pneumonia coverage - ABs finished today Swallow screen completed and ASBESTOS HAZARD ABATEMENT WORKER instructing patient on chin-tuck when eating to avoid aspiration [place] thick given noncompliant with chin tuck Son concern the patient is not drinking as much. Would like nursing to try her chin tuck with thin liquids. This discussed with nursing. -Wheezing on exam less likely decompensated COPD on top of other pathology Will complete 5d course of prednisone - s/p 5d of prednisone -Family says that the patient sits outside on porch and has seasonal allergies We will initiate Claritin PLAN: - Lasix 40mg oral - Strict I&O and daily standing weights - Cefdinir and azithromycin oral - ASBESTOS HAZARD ABATEMENT WORKER following to modify swallow - nectar thick liquids - S/p Prednisone 40mg qd x5d - Duo-nebs scheduled - Claritin 10mg qd - 6 minute walk test - qualified for continued home oxygen (2) Community acquired pneumonia Current Visit: No Status: Acute Assessment and Plan: See above (3) COPD exacerbation Current Visit: No Status: Chronic Assessment and Plan: The above (4) CHF exacerbation Current Visit: No Status: Acute Assessment and Plan: See above (5) Chronic renal disease, stage IV Current Visit: Yes Status: Acute Assessment and Plan: Currently at baseline, however, this will limit patient's ability to diurese. - Diuresis per above - We will consult nephrology if worsening creatinine (6) Diabetes mellitus Current Visit: No Status: Chronic Assessment and Plan: Will need tighter glucose control in the setting of prednisone use. - Lantus 25 units twice a day --> back to home regimen given off prednisone - Sliding scale (7) CAD (coronary artery disease) Current Visit: No Status: Chronic Assessment and Plan: No reports of chest pain. Continue medical management. DVT Prophylaxis: Warfarin Internal Medicine: Result - Labs CBC & Chem 7: 04/16/19 07:41 04/17/19 04:19 Labs: BMP 04/17/19 04:19 Sodium 142 Potassium 4.2 Chloride 103 Carbon Dioxide 28 BUN 63 H Creatinine 2.14 H Glucose 131 H Calcium 9.5 - ABG Interpretation ABG results: PT/INR, D-dimer PT 25.3 Seconds (9.4-12.1) H 04/17/19 04:19 Consult Discharge Plan - Plan Referrals: Mouna Carrasquillo MD [Primary Care Provider] - () (4) CHF exacerbation Qualifiers: Heart failure type: unspecified Qualified Code(s): I50.9 - Heart failure, unspecified (6) Diabetes mellitus Qualifiers: Diabetes mellitus type: type 2 Diabetes mellitus fci insulin use: with cable dispatcher use Diabetes mellitus complication status: without complication Qualified Code(s): E11.9 - Type 2 diabetes mellitus without complications; Z79.4 - residential (current) use of insulin (7) CAD (coronary artery disease) Qualifiers: Coronary Disease-Associated Artery/Lesion type: [place] artery [place] vs. t ransplanted heart: [place] heart Associated angina: without angina Qualified Code(s): I25.10 - Atherosclerotic heart disease of [place] coronary artery without angina pectoris
[2019-04-17 10:33] LABS: Hematocrit 42.7 % (37.5-50.1); Hemoglobin 13.5 g/dL (12.9-16.9); Mean Corpuscular HGB Conc 31.6 g/dL (31.6-35.5); Mean Corpuscular Hemoglobin 30.3 pg (28.0-33.3); Mean Platelet Volume 11.7 fL (9.4-12.4); Platelet Count 242 K/mcL (140-400); Red Blood Count 4.45 M/mcL (4.19-5.50); White Blood Count 12.4 K/mcL (4.3-11.1)
[2019-04-17] MEDS ORDERED: *HR* Warfarin 5 MG TABLET PO SCH (18:00)
[2019-04-17] MEDS ORDERED: *HR* Warfarin 4 MG TABLET PO ONE (18:00)
[2019-04-17] MEDS ORDERED: Insulin DETEMIR 100 UNIT/ML X5UNITS SQ SCH (21:00)
[2019-04-17] MEDS ORDERED: INSULIN DEGLUDEC 35 UNIT SQ SCH (21:00)
[2019-04-17] MEDS: Melatonin 3 MG TABLET PO SCH (22:09)
[2019-04-17] MEDS: Famotidine 20 MG TABLET PO SCH (22:09)
[2019-04-18] MEDS: Ipratropium/Albuterol Neb 3 ML IH SCH ×3 (04:20→11:08)
[2019-04-18 05:31] LABS: Hematocrit 44.4 % (37.5-50.1); Hemoglobin 13.9 g/dL (12.9-16.9); Mean Corpuscular HGB Conc 31.3 g/dL (31.6-35.5); Mean Corpuscular Hemoglobin 30.4 pg (28.0-33.3); Mean Corpuscular Volume 97.2 fL (83.0-100.0); Mean Platelet Volume 11.8 fL (9.4-12.4); Platelet Count 260 K/mcL (140-400); Red Blood Count 4.57 M/mcL (4.19-5.50); White Blood Count 12.3 K/mcL (4.3-11.1)
[2019-04-18 05:39] LABS: INR 2.3; Prothrombin Time 26.7 Seconds (9.4-12.1)
[2019-04-18 05:50] LABS: Calcium 9.4 mg/dL (8.6-10.3); Magnesium 2.5 mg/dL (1.6-2.6); Potassium 3.9 mEq/L (3.5-5.1)
[2019-04-18] MEDS: Insulin LISPRO 300 UNITS/3 ML VIAL SQ SCH (07:56)
[2019-04-18] MEDS: Furosemide 40 MG TABLET PO SCH (07:59)
[2019-04-18] MEDS: Aspirin Enteric Coated 81 MG Tablet PO SCH (07:59)
[2019-04-18] MEDS: Loratadine 10 MG TABLET PO SCH (07:59)
[2019-04-18] MEDS: Cefdinir 300 MG CAPSULE PO SCH (07:59)
[2019-04-18] MEDS: Azithromycin 250 MG TABLET PO SCH (07:59)
[2019-04-18] MEDS: Isosorbide MONOnitrate (24 HR) 30 MG TAB.ER.24H PO SCH (07:59)
[2019-04-18] MEDS: Cholecalciferol (D-3) 1,000 UNIT (25MCG) TABLET PO SCH (07:59)
[2019-04-18] MEDS ORDERED: predniSONE 20 MG TABLET PO SCH (11:27)
--- NOTE | 2019-04-18 11:43 | Discharge Summary ---
Orders not resulted at time of discharge: Pending orders 04/12/19 20:41 Legionella Antigen [RM] Stat S. Pneumoniae Antigen [RM] Stat Date of Encounter: 04/18/19 Time of Encounter: 11:37 - Discharge Diagnosis (1) Acute and chronic respiratory failure with hypoxia Priority: Primary Status: Acute (2) Community acquired pneumonia Priority: Secondary Status: Acute Qualifiers: Laterality: right Lung location: lower lobe of lung Qualified Code(s): J18.1 - Lobar pneumonia, unspecified organism (3) COPD exacerbation Priority: Secondary Status: Chronic (4) CHF exacerbation Priority: Secondary Status: Acute Qualifiers: Heart failure type: unspecified Qualified Code(s): I50.9 - Heart failure, unspecified (5) Chronic renal disease, stage IV Priority: Secondary Status: Acute (6) Diabetes mellitus Priority: Secondary Status: Chronic Qualifiers: Diabetes mellitus type: type 2 Diabetes mellitus snf insulin use: with snf use Diabetes mellitus complication status: without complication Qualified Code(s): E11.9 - Type 2 diabetes mellitus without complications; Z79.4 - longterm (current) use of insulin (7) CAD (coronary artery disease) Priority: Secondary Status: Chronic Qualifiers: Coronary Disease-Associated Artery/Lesion type: [place] artery [place] vs. transplanted heart: [place] heart Associated angina: without angina Qualified Code(s): I25.10 - Atherosclerotic heart disease of [place] coronary artery without angina pectoris Hospital course: Mr. Colon is a 88 year old male with history of CKD Stage IV and chronic respiratory failure secondary to severe COPD and HFpEF presents with respiratory failure secondary to aspiration pneumonia and COPD/HF exacerbations. Patient was evaluated by speech therapy who recommended nectar thick liquids and continued speech rehabilitation. Was also found to be hypervolemic and Lasix dose was altered slightly although tedious given medical fragility secondary to CKD stage IV. Patient finished a course of antibiotics but will continue a prednisone taper given continued wheezing on exam (prednisone 40mg until 04/25, prednisone 20mg until 05/02 then stop). Will need to alter insulin dosing with this (Insulin Lantus 25U bid while on prednisone then back to 35U nightly 05/02 when prednisone course is completed). Will d/c to SNF for speech rehab and PT. Discharge discussed with: family - Time Spent with Patient Total time spent providing and/or coordinating discharge services: 85 minutes Time spent: Greater than 30 minutes - Discharge Medications Prescriptions: New Furosemide [Lasix] 30 mg PO DAILY #30 tablet Insulin DETEMIR [Levemir] 25 unit SQ BID #0 [id number] Insulin DETEMIR [Levemir] 35 unit SQ HS #0 [id number] predniSONE [PredniSONE] 40 mg PO DAILY #21 tablet Continued Levothyroxine [Synthroid] 50 mcg PO QAM Ferrous Gluconate 324 mg PO DAILY Vitamin E 400 unit PO QAM Pantoprazole Sodium [Protonix] 40 mg PO QAM Ranitidine HCl [Heartburn Relief] 150 mg PO HS Multivits,Ca,Min/Iron/FA/Lycop [Centrum Men's Tablet] 1 tab PO DAILY Allopurinol [Zyloprim 100 MG] 100 mg PO DAILY Aspirin Enteric Coated [Aspirin EC] 81 mg PO DAILY Cholecalciferol (Vitamin D3) [Vitamin D3] 5,000 unit PO DAILY Docusate Sodium [Stool Softener] 100 mg PO HS Isosorbide MONOnitrate (24 HR) [Imdur] 30 mg PO QAM Losartan Potassium 25 mg PO DAILY Metoprolol Tartrate 50 mg PO BID Sertraline [Zoloft] 25 mg PO HS Simvastatin [Zocor] 20 mg PO HS Warfarin Sodium 5 mg PO SUTUWETHFRSA Warfarin Sodium 2.5 mg PO MO Tiotropium [Spiriva] 18 mcg IH DAILY@0700 #1 inh Discontinued Furosemide [Lasix] 20 mg PO DAILY Insulin Degludec [Tresiba Flextouch U-100] 35 unit SQ HS #1 insuln.pen Doxycycline 100 mg PO BID #14 capsule Home Medications: Levothyroxine [Synthroid] 50 mcg PO QAM 11/29/15 [History] Ferrous Gluconate 324 mg PO DAILY 01/12/17 [History] Multivits,Ca,Min/Iron/FA/Lycop [Centrum Men's Tablet] 1 tab PO DAILY 12/25/18 [History] Pantoprazole Sodium [Protonix] 40 mg PO QAM 12/25/18 [History] Ranitidine HCl [Heartburn Relief] 150 mg PO HS 12/25/18 [History] Vitamin E 400 unit PO QAM 12/25/18 [History] Allopurinol [Zyloprim 100 MG] 100 mg PO DAILY 03/20/19 [History] Aspirin Enteric Coated [Aspirin EC] 81 mg PO DAILY 03/20/19 [History] Cholecalciferol (Vitamin D3) [Vitamin D3] 5,000 unit PO DAILY 03/20/19 [History] Docusate Sodium [Stool Softener] 100 mg PO HS 03/20/19 [History] Isosorbide MONOnitrate (24 HR) [Imdur] 30 mg PO QAM 03/20/19 [History] Losartan Potassium 25 mg PO DAILY 03/20/19 [History] Metoprolol Tartrate 50 mg PO BID 03/20/19 [History] Sertraline [Zoloft] 25 mg PO HS 03/20/19 [History] Simvastatin [Zocor] 20 mg PO HS 03/20/19 [History] Warfarin Sodium 2.5 mg PO MO 03/20/19 [History] Warfarin Sodium 5 mg PO [id number] 03/20/19 [History] Tiotropium [Spiriva] 18 mcg IH DAILY@0700 #1 inh 03/21/19 [Rx] Furosemide [Lasix] 30 mg PO DAILY #30 tablet 04/18/19 [Rx] Insulin DETEMIR [Levemir] 25 unit SQ BID #0 [id number] 04/18/19 [Rx] Insulin DETEMIR [Levemir] 35 unit SQ HS #0 [id number] 04/18/19 [Rx] predniSONE [PredniSONE] 40 mg PO DAILY #21 tablet 04/18/19 [Rx] Allergies/Adverse Reactions: Allergy/AdvReac Type Severity Reaction Status Date / Time morphine Allergy Rash Verified 04/14/19 11:45 Date of admission: 04/14/19 19:24 Primary care physician: Mouna Carrasquillo MD Consults: 04/12/19 23:42 Consult to Nurse Navigator [CONS] Routine Comment: 04/13/19 10:51 Consult to Speech Therapy [CONS] Routine Comment: Evaluate, develop and implement POC Reason for Consult: Swallow eval - likely asp PNA Call Completed: Yes 04/14/19 10:16 Consult to Physical Therapy [CONS] Routine Comment: Evaluate, develop and implement POC Reason for Consult: Deconditioning Does patient have active BEDREST order?: No Is patient medically & hemodynamically stable?: Yes Patient assessed for mobility or mobilized this visit?: No 04/15/19 08:25 Consult to Information Security Officer [CONS] Routine Reason for SW Consult: needs ecf - Constitutional Vitals: Temp Pulse Resp BP Pulse Ox 97.8 F 73 18 143/77 92 04/18/19 07:56 04/18/19 07:56 04/18/19 11:08 04/18/19 07:56 04/18/19 11:08 Exam: General: Ill-appearing and in no acute distress. Very hard of hearing. HEENT: No erythema of posterior pharynx. No exudates. Lymphatics: No mandibular or cervical lymphadenopathy Cardiovascular: RRR. No murmurs. No chest wall tenderness. Lungs: Faint wheezing. Decreased breath sounds throughout. Regular chest rise. Abdomen: Non-tender. No rebound or gaurding. Nl bowel sounds. Extremities: Trace edema. 2+ pulses radial and pedal pulses Skin: No rahses, abrasions, or contusions. Nl cap refill. Psych: Nl attention. A&Ox3 Neuro: state director II-XII intact. 5/5 strength. Sensation to light touch and pinprick intact. - Patient Status Disposition: Transfer SNF Condition: Good Functional capacity at discharge: uses cane/walker Overall status at discharge: patient is progressing back to baseline - Discharge Instructions Follow Up With: Mouna Carrasquillo MD [Primary Care Provider] - () - Diet and Activity Activity: as per physical therapy Diet: diabetic diet, low salt diet
[2019-04-18 11:53] VITALS: BP 105/68
--- NOTE | 2019-04-18 11:54 | Physician Discharge Referral ---
ExtendedCare Referral Info Transfer To: SNF Provider in Charge: Jas Alvarez MD Provider in Charge after Transfer: PCP Institutional Level of Care: Skilled - Diagnosis (1) Acute and chronic respiratory failure with hypoxia Priority: Primary Status: Acute (2) Community acquired pneumonia Priority: Secondary Status: Acute (3) COPD exacerbation Priority: Secondary Status: Chronic (4) CHF exacerbation Priority: Secondary Status: Acute (5) Chronic renal disease, stage IV Priority: Secondary Status: Acute (6) Diabetes mellitus Priority: Secondary Status: Chronic (7) CAD (coronary artery disease) Priority: Secondary Status: Chronic - Transfer Medications Prescriptions: Furosemide [Lasix] 30 mg PO DAILY #30 tablet predniSONE [PredniSONE] 40 mg PO DAILY #21 tablet Home Medications: Levothyroxine [Synthroid] 50 mcg PO QAM 11/29/15 [History] Ferrous Gluconate 324 mg PO DAILY 01/12/17 [History] Multivits,Ca,Min/Iron/FA/Lycop [Centrum Men's Tablet] 1 tab PO DAILY 12/25/18 [History] Pantoprazole Sodium [Protonix] 40 mg PO QAM 12/25/18 [History] Ranitidine HCl [Heartburn Relief] 150 mg PO HS 12/25/18 [History] Vitamin E 400 unit PO QAM 12/25/18 [History] Allopurinol [Zyloprim 100 MG] 100 mg PO DAILY 03/20/19 [History] Aspirin Enteric Coated [Aspirin EC] 81 mg PO DAILY 03/20/19 [History] Cholecalciferol (Vitamin D3) [Vitamin D3] 5,000 unit PO DAILY 03/20/19 [History] Docusate Sodium [Stool Softener] 100 mg PO HS 03/20/19 [History] Isosorbide MONOnitrate (24 HR) [Imdur] 30 mg PO QAM 03/20/19 [History] Losartan Potassium 25 mg PO DAILY 03/20/19 [History] Metoprolol Tartrate 50 mg PO BID 03/20/19 [History] Sertraline [Zoloft] 25 mg PO HS 03/20/19 [History] Simvastatin [Zocor] 20 mg PO HS 03/20/19 [History] Warfarin Sodium 2.5 mg PO MO 03/20/19 [History] Warfarin Sodium 5 mg PO [id number] 03/20/19 [History] Tiotropium [Spiriva] 18 mcg IH DAILY@0700 #1 inh 03/21/19 [Rx] Furosemide [Lasix] 30 mg PO DAILY #30 tablet 04/18/19 [Rx] Insulin DETEMIR [Levemir] 25 unit SQ BID #0 [id number] 04/18/19 [Rx] Insulin DETEMIR [Levemir] 35 unit SQ HS #0 [id number] 04/18/19 [Rx] predniSONE [PredniSONE] 40 mg PO DAILY #21 tablet 04/18/19 [Rx] Allergies/Adverse Reactions: Allergy/AdvReac Type Severity Reaction Status Date / Time morphine Allergy Rash Verified 04/14/19 11:45 - Respiratory Orders Oxygen / L per min (2L at rest and with ambulation) Smoking Cessation: Smoking cessation has been advised. For more information, call the [employer] Tobacco Quit Line at 1-404-UTWN-NOW. - Lab Orders Lab Orders: Other (include drug levels w/frequency) ([facility] 04/20 to monitor renal function) - Advance Directives Living Will: Yes Power of Rn Emergency for Health Care: Yes Code Status: DNR-Comfort Care - Mobility Orders Chair - Rehabiliation Orders Rehab Potential: Good Rehab Orders: Evaluation for Physical Therapy, Evaluation for Speech Therapy - Diet Orders No Concentrated Sweets, Cardiac (And diabetic) CERTIFICATION: I certify that the transfer of the above named patient to an Extended Care Facility is necessary for the continuing treatment of the diagnosis listed. The above information is true and accurate reflection of patient's current condi tion. Jas Alvarez MD Confidential - Redisclosure prohibited without a patient's written consent.
[2019-04-18] MEDS ORDERED: *HR* Warfarin 5 MG TABLET PO ONE (18:00)
[2019-04-18] MEDS ORDERED: Insulin DETEMIR 100 UNIT/ML X5UNITS SQ SCH (21:00)
[2019-04-19] MEDS ORDERED: Furosemide 20 MG TABLET PO SCH (09:00)
== END 2019-04-18 12:40 | DRG 291 ==
LOC: EMEROOARM 18:01 → 2ANU 18:01 → SUATTDRO 21:36 → 2ANU 22:40
PROVIDERS: ADMIT Internal Medicine; ATTEND Internal Medicine

== ENCOUNTER 2019-07-02 11:15 | Inpatient (IN) ==
[2019-07-02 12:23] LABS: Basophils # 0.1 K/mcL (0.0-0.2); Basophils % 0.8 %; Eosinophils # 0.2 K/mcL (0.0-0.6); Eosinophils % 1.9 %; Hematocrit 39.7 % (37.5-50.1); Immature Granulocytes % 0.6 % (0-4); Lymphocytes # 3.1 K/mcL (0.6-4.6); Lymphocytes % 25.8 %; Mean Corpuscular HGB Conc 32.7 g/dL (31.6-35.5); Mean Corpuscular Volume 91.5 fL (83.0-100.0); Mean Platelet Volume 11.9 fL (9.4-12.4); Monocytes # 0.8 K/mcL (0.0-1.3); Monocytes % 6.4 %; Neutrophils # 7.7 K/mcL (1.6-8.9); Platelet Count 298 K/mcL (140-400); Red Blood Count 4.34 M/mcL (4.19-5.50); Segmented Neutrophils % 64.5 %; White Blood Count 11.9 K/mcL (4.3-11.1)
[2019-07-02 12:35] LABS: INR 2.8; Prothrombin Time 31.8 Seconds (9.4-12.1)
[2019-07-02 12:38] LABS: Activated Partial Thrombo Time 50.8 Seconds (26.0-36.0)
[2019-07-02 12:43] LABS: BUN/Creatinine Ratio 10 (6-26); Blood Urea Nitrogen 24 mg/dL (8-23); Calcium 8.5 mg/dL (8.6-10.3); Carbon Dioxide 24 mEq/L (23-29); Chloride 98 mEq/L (98-107); Glucose 440 mg/dL (70-105); Magnesium 1.7 mg/dL (1.6-2.6); Osmolality,Calculated 299 (280-300); Potassium 3.9 mEq/L (3.5-5.1); Sodium 133 mEq/L (136-145); eGFR For African Americans 31 (> 60); eGFR For Non-African Americans 25 (> 60)
[2019-07-02 12:44] LABS: Troponin I < 0.03 ng/mL (< 0.04)
[2019-07-02] MEDS ORDERED: Azithromycin 500 MG in D5% in Water 250 ML IVPB STA (13:04)
[2019-07-02] MEDS ORDERED: cefTRIAXone 1,000 MG in Water for inj. (sterile) 10 ML IVP ONE (13:04)
[2019-07-02] MEDS ORDERED: Naloxone 0.4 MG/ML INJ IVP PRN (14:01)
[2019-07-02] MEDS ORDERED: D5% in Water 1,000 ML IVC PRN (14:11)
[2019-07-02] MEDS ORDERED: Dextrose Gel 15 GM/37.5 ML TUBE PO PRN ×2 (14:11)
[2019-07-02] MEDS ORDERED: *HR* Dextrose 50 % in Water (Syg) 50 ML SYRINGE IVP PRN (14:11)
[2019-07-02] MEDS ORDERED: Furosemide 20 MG/2 ML VIAL IVP ONE (14:12)
[2019-07-02 15:51] LABS: Estimated Average Glucose 260 mg/dl
[2019-07-02 15:52] LABS: Albumin 3.4 g/dL (3.5-5.7); Albumin/Globulin Ratio 1.4 (1.1-2.2); Bilirubin,Indirect 0.3 mg/dL (0.0-1.2); Bilirubin,Total 0.3 mg/dL (0.3-1.0); Globulin 2.5 g/dL (2.4-3.5); Total Protein 5.9 g/dL (6.4-8.9)
[2019-07-02] MEDS: Insulin LISPRO 300 UNITS/3 ML VIAL SQ SCH ×3 (16:00→19:41)
[2019-07-02] MEDS ORDERED: *HR* Warfarin 5 MG TABLET PO ONE (18:00)
[2019-07-02] MEDS ORDERED: Warfarin perPT PO PRN (18:00)
[2019-07-02 18:53] LABS: Hematocrit 37.5 % (37.5-50.1); Hemoglobin 12.1 g/dL (12.9-16.9)
[2019-07-02] MEDS: Insulin DETEMIR 100 UNIT/ML X5UNITS SQ SCH (19:56)
[2019-07-03 07:02] LABS: Basophils # 0.1 K/mcL (0.0-0.2); Basophils % 0.9 %; Eosinophils # 0.4 K/mcL (0.0-0.6); Hemoglobin 12.6 g/dL (12.9-16.9); INR 2.8; Immature Granulocytes % 0.5 % (0-4); Lymphocytes # 2.5 K/mcL (0.6-4.6); Lymphocytes % 23.9 %; Mean Corpuscular HGB Conc 33.2 g/dL (31.6-35.5); Mean Corpuscular Hemoglobin 29.7 pg (28.0-33.3); Mean Corpuscular Volume 89.6 fL (83.0-100.0); Mean Platelet Volume 11.9 fL (9.4-12.4); Monocytes # 0.8 K/mcL (0.0-1.3); Monocytes % 7.1 %; Neutrophils # 6.7 K/mcL (1.6-8.9); Platelet Count 299 K/mcL (140-400); Prothrombin Time 32.2 Seconds (9.4-12.1); Red Blood Count 4.24 M/mcL (4.19-5.50); Red Cell Distribution Width 15.1 % (11.5-14.5); Segmented Neutrophils % 63.6 %; White Blood Count 10.6 K/mcL (4.3-11.1)
[2019-07-03 07:21] LABS: Calcium 8.5 mg/dL (8.6-10.3); Potassium 3.3 mEq/L (3.5-5.1)
[2019-07-03] MEDS ORDERED: Perflutren Lipid Microsphere 1.3 ML in 0.9 % Sodium Chloride 8.7 ML IVP ONE (08:08)
[2019-07-03] MEDS: Aspirin Enteric Coated 81 MG Tablet PO SCH (09:49)
[2019-07-03] MEDS: Isosorbide MONOnitrate (24 HR) 30 MG TAB.ER.24H PO SCH (09:49)
[2019-07-03] MEDS: Insulin LISPRO 300 UNITS/3 ML VIAL SQ SCH ×4 (09:50→20:38)
[2019-07-03] MEDS: Tiotropium 18 MCG inhalation IH SCH (10:55)
[2019-07-03] MEDS ORDERED: Albuterol 2.5 MG/3 ML NEBULIZER IH PRN (10:57)
[2019-07-03] MEDS ORDERED: Furosemide 20 MG/2 ML VIAL IVP ONE (10:58)
[2019-07-03] MEDS ORDERED: levoFLOXacin 750 MG TABLET PO SCH (16:00)
[2019-07-03] MEDS ORDERED: *HR* Warfarin 2.5 MG TABLET PO ONE (18:00)
[2019-07-03] MEDS: Insulin DETEMIR 100 UNIT/ML X5UNITS SQ SCH (20:39)
[2019-07-04 01:21] LABS: INR 2.5; Prothrombin Time 28.3 Seconds (9.4-12.1)
[2019-07-04 01:31] LABS: Calcium 8.9 mg/dL (8.6-10.3); Potassium 3.9 mEq/L (3.5-5.1)
[2019-07-04] MEDS: Tiotropium 18 MCG inhalation IH SCH (07:42)
[2019-07-04] MEDS: Isosorbide MONOnitrate (24 HR) 30 MG TAB.ER.24H PO SCH (07:57)
[2019-07-04] MEDS: Aspirin Enteric Coated 81 MG Tablet PO SCH (07:57)
[2019-07-04] MEDS: Insulin LISPRO 300 UNITS/3 ML VIAL SQ SCH ×4 (07:59→20:26)
[2019-07-04 11:57] LABS: Hematocrit 38.1 % (37.5-50.1); Hemoglobin 11.9 g/dL (12.9-16.9); Mean Corpuscular HGB Conc 31.2 g/dL (31.6-35.5); Mean Corpuscular Hemoglobin 29.4 pg (28.0-33.3); Mean Corpuscular Volume 94.1 fL (83.0-100.0); Mean Platelet Volume 11.4 fL (9.4-12.4); Platelet Count 282 K/mcL (140-400); Red Blood Count 4.05 M/mcL (4.19-5.50); Red Cell Distribution Width 15.3 % (11.5-14.5); White Blood Count 9.6 K/mcL (4.3-11.1)
[2019-07-04] MEDS ORDERED: Furosemide 20 MG TABLET PO SCH (12:46)
[2019-07-04] MEDS: Furosemide 20 MG TABLET PO SCH (14:04)
[2019-07-04] MEDS ORDERED: *HR* Warfarin 5 MG TABLET PO ONE (18:00)
[2019-07-04] MEDS ORDERED: Insulin DETEMIR 100 UNIT/ML X5UNITS SQ SCH (21:00)
[2019-07-05 06:57] VITALS: BP 164/70
[2019-07-05 07:03] LABS: Basophils # 0.1 K/mcL (0.0-0.2); Eosinophils # 0.5 K/mcL (0.0-0.6); Eosinophils % 4.9 %; Hematocrit 37.9 % (37.5-50.1); Hemoglobin 12.3 g/dL (12.9-16.9); Immature Granulocytes % 0.6 % (0-4); Lymphocytes # 2.1 K/mcL (0.6-4.6); Lymphocytes % 21.9 %; Mean Corpuscular HGB Conc 32.5 g/dL (31.6-35.5); Mean Corpuscular Hemoglobin 29.9 pg (28.0-33.3); Mean Platelet Volume 11.2 fL (9.4-12.4); Monocytes # 0.7 K/mcL (0.0-1.3); Monocytes % 7.5 %; Neutrophils # 6.1 K/mcL (1.6-8.9); Platelet Count 268 K/mcL (140-400); Red Blood Count 4.12 M/mcL (4.19-5.50); Red Cell Distribution Width 15.2 % (11.5-14.5); Segmented Neutrophils % 64.1 %; White Blood Count 9.6 K/mcL (4.3-11.1)
[2019-07-05 07:18] LABS: INR 2.1; Prothrombin Time 24.1 Seconds (9.4-12.1)
[2019-07-05 07:26] LABS: Albumin 3.5 g/dL (3.5-5.7); Calcium 9.2 mg/dL (8.6-10.3); Magnesium 1.9 mg/dL (1.6-2.6); Potassium 3.6 mEq/L (3.5-5.1)
[2019-07-05] MEDS: Tiotropium 18 MCG inhalation IH SCH (07:32)
[2019-07-05] MEDS ORDERED: Loratadine 10 MG TABLET PO SCH (09:00)
[2019-07-05] MEDS: Aspirin Enteric Coated 81 MG Tablet PO SCH (09:27)
[2019-07-05] MEDS: Furosemide 20 MG TABLET PO SCH (09:27)
[2019-07-05] MEDS: Isosorbide MONOnitrate (24 HR) 30 MG TAB.ER.24H PO SCH (09:27)
[2019-07-05] MEDS: Insulin LISPRO 300 UNITS/3 ML VIAL SQ SCH (09:31)
[2019-07-05] MEDS ORDERED: *HR* Warfarin 5 MG TABLET PO ONE (18:00)
== END 2019-07-05 12:11 | disposition home or self-care (01) | DRG 291 ==
LOC: EMEROOARM 11:15 → 3BNU 11:15 → SUATTDRO 13:47 → 3BNU 14:33
PROVIDERS: ADMIT Internal Medicine; ATTEND Internal Medicine

== ENCOUNTER 2019-07-17 13:15 | Inpatient (IN) ==
[2019-07-17] MEDS ORDERED: Ipratropium/Albuterol Neb 3 ML IH ONE (14:07)
[2019-07-17] MEDS ORDERED: methylPREDNISolone 125 MG/2 ML VIAL IVP ONE (14:07)
[2019-07-17] MEDS ORDERED: Furosemide 40 MG/4 ML VIAL IVP ONE (14:19)
[2019-07-17] MEDS ORDERED: Isovue-370 500 ML BOTTLE IVP ONE (14:24)
[2019-07-17 14:27] LABS: Basophils # 0.1 K/mcL (0.0-0.2); Eosinophils # 0.8 K/mcL (0.0-0.6); Eosinophils % 8.1 %; Hematocrit 38.2 % (37.5-50.1); Immature Granulocytes % 0.5 % (0-4); Lymphocytes # 2.2 K/mcL (0.6-4.6); Lymphocytes % 21.4 %; Mean Corpuscular HGB Conc 31.4 g/dL (31.6-35.5); Mean Corpuscular Hemoglobin 29.1 pg (28.0-33.3); Mean Corpuscular Volume 92.7 fL (83.0-100.0); Mean Platelet Volume 11.4 fL (9.4-12.4); Monocytes # 0.5 K/mcL (0.0-1.3); Monocytes % 5.2 %; Neutrophils # 6.5 K/mcL (1.6-8.9); Platelet Count 288 K/mcL (140-400); Red Blood Count 4.12 M/mcL (4.19-5.50); Red Cell Distribution Width 15.3 % (11.5-14.5); Segmented Neutrophils % 63.8 %; White Blood Count 10.1 K/mcL (4.3-11.1)
[2019-07-17 14:49] LABS: Calcium 8.5 mg/dL (8.6-10.3); Potassium 4.4 mEq/L (3.5-5.1); Troponin I 0.03 ng/mL (< 0.04)
[2019-07-17] MEDS ORDERED: Naloxone 0.4 MG/ML INJ IVP PRN (15:16)
[2019-07-17] MEDS ORDERED: D5% in Water 1,000 ML IVC PRN (15:19)
[2019-07-17] MEDS ORDERED: *HR* Dextrose 50 % in Water (Syg) 50 ML SYRINGE IVP PRN (15:19)
[2019-07-17] MEDS ORDERED: Dextrose Gel 15 GM/37.5 ML TUBE PO PRN ×2 (15:19)
[2019-07-17 15:22] LABS: INR 2.7; Prothrombin Time 30.4 Seconds (9.4-12.1)
[2019-07-17] MEDS ORDERED: Sennosides/Docusate Sodium TABLET PO PRN (15:23)
[2019-07-17] MEDS ORDERED: Ipratropium/Albuterol Neb 3 ML IH PRN (15:27)
[2019-07-17 15:35] LABS: Activated Partial Thrombo Time 49.9 Seconds (26.0-36.0)
[2019-07-17 15:39] LABS: Bilirubin,Urine Negative (Negative); Blood,Urine Negative (Negative); Clarity,Urine Clear (Clear); Color,Urine Yellow (Yellow); Glucose,Urine (UA) 500 mg/dL (Normal); Ketones,Urine Negative (Negative); Leukocyte Esterase,Urine Negative (Negative); Nitrite,Urine Negative (Negative); PH,Urine 5.5 pH Units (5.0-8.0); Protein,Urine Negative (Neg-Trace); Specific Gravity,Urine 1.018 (1.010-1.025); Urobilinogen,Urine Normal (Normal)
[2019-07-17] MEDS ORDERED: Azithromycin 250 MG TABLET PO SCH (16:00)
[2019-07-17] MEDS: Insulin LISPRO 300 UNITS/3 ML VIAL SQ SCH ×2 (17:47→17:48)
[2019-07-17] MEDS: predniSONE 20 MG TABLET PO SCH (17:47)
[2019-07-17] MEDS: Warfarin perPT PO SCH (17:50)
[2019-07-17] MEDS ORDERED: *HR* Warfarin 2.5 MG TABLET PO ONE (18:00)
[2019-07-17] MEDS ORDERED: Benzonatate 100 MG CAPSULE PO PRN (18:18)
[2019-07-17] MEDS ORDERED: Insulin DETEMIR 100 UNIT/ML X5UNITS SQ SCH (21:00)
[2019-07-18 04:54] LABS: INR 2.5; Prothrombin Time 28.2 Seconds (9.4-12.1)
[2019-07-18 04:57] LABS: Basophils % 0.2 %; Hematocrit 37.7 % (37.5-50.1); Hemoglobin 12.4 g/dL (12.9-16.9); Immature Granulocytes % 0.7 % (0-4); Lymphocytes # 0.8 K/mcL (0.6-4.6); Lymphocytes % 9.2 %; Mean Corpuscular HGB Conc 32.9 g/dL (31.6-35.5); Mean Corpuscular Hemoglobin 28.9 pg (28.0-33.3); Mean Corpuscular Volume 87.9 fL (83.0-100.0); Mean Platelet Volume 11.6 fL (9.4-12.4); Monocytes # 0.1 K/mcL (0.0-1.3); Monocytes % 0.7 %; Neutrophils # 7.3 K/mcL (1.6-8.9); Platelet Count 307 K/mcL (140-400); Red Blood Count 4.29 M/mcL (4.19-5.50); Red Cell Distribution Width 15.1 % (11.5-14.5); Segmented Neutrophils % 89.2 %; White Blood Count 8.2 K/mcL (4.3-11.1)
[2019-07-18 05:14] LABS: Albumin 3.5 g/dL (3.5-5.7); Albumin/Globulin Ratio 1.3 (1.1-2.2); Bilirubin,Total 0.5 mg/dL (0.3-1.0); Calcium 8.6 mg/dL (8.6-10.3); Globulin 2.7 g/dL (2.4-3.5); Magnesium 1.9 mg/dL (1.6-2.6); Phosphorous 3.6 mg/dL (2.7-4.5); Potassium 4.6 mEq/L (3.5-5.1); Total Protein 6.2 g/dL (6.4-8.9)
[2019-07-18] MEDS: Isosorbide MONOnitrate (24 HR) 30 MG TAB.ER.24H PO SCH (08:39)
[2019-07-18] MEDS: predniSONE 20 MG TABLET PO SCH (08:39)
[2019-07-18] MEDS: Aspirin Enteric Coated 81 MG Tablet PO SCH (08:39)
[2019-07-18] MEDS: Insulin LISPRO 300 UNITS/3 ML VIAL SQ SCH ×6 (08:39→17:31)
[2019-07-18] MEDS ORDERED: Furosemide 40 MG/4 ML VIAL IVP SCH (09:00)
[2019-07-18 10:30] LABS: Estimated Average Glucose 272 mg/dl
[2019-07-18] MEDS ORDERED: levoFLOXacin 500 MG/100 ML 500 MG/100 ML BAG IVPB SCH (11:00)
[2019-07-18] MEDS: Warfarin perPT PO SCH (17:30)
[2019-07-18] MEDS ORDERED: *HR* Warfarin 5 MG TABLET PO ONE (18:00)
[2019-07-18] MEDS: Famotidine 20 MG TABLET PO SCH (20:20)
[2019-07-18] MEDS ORDERED: Insulin DETEMIR 100 UNIT/ML X5UNITS SQ SCH (21:00)
[2019-07-19 07:02] LABS: Basophils % 0.1 %; Eosinophils % 0.1 %; Hematocrit 36.9 % (37.5-50.1); Hemoglobin 12.1 g/dL (12.9-16.9); Immature Granulocytes % 0.6 % (0-4); Lymphocytes # 1.9 K/mcL (0.6-4.6); Lymphocytes % 11.1 %; Mean Corpuscular HGB Conc 32.8 g/dL (31.6-35.5); Mean Corpuscular Hemoglobin 29.5 pg (28.0-33.3); Mean Platelet Volume 12.3 fL (9.4-12.4); Monocytes # 0.7 K/mcL (0.0-1.3); Monocytes % 4.4 %; Platelet Count 284 K/mcL (140-400); Red Cell Distribution Width 15.2 % (11.5-14.5); Segmented Neutrophils % 83.7 %
[2019-07-19 07:03] LABS: White Blood Count 16.7 K/mcL (4.3-11.1)
[2019-07-19 07:05] LABS: INR 1.9; Prothrombin Time 22.1 Seconds (9.4-12.1)
[2019-07-19 07:29] LABS: Potassium 4.3 mEq/L (3.5-5.1)
[2019-07-19] MEDS: predniSONE 20 MG TABLET PO SCH (08:28)
[2019-07-19] MEDS: Isosorbide MONOnitrate (24 HR) 30 MG TAB.ER.24H PO SCH (08:29)
[2019-07-19] MEDS: Insulin LISPRO 300 UNITS/3 ML VIAL SQ SCH ×6 (08:29→17:50)
[2019-07-19] MEDS: Aspirin Enteric Coated 81 MG Tablet PO SCH (08:29)
[2019-07-19] MEDS: Furosemide 20 MG/2 ML VIAL IVP SCH (08:30)
[2019-07-19] MEDS ORDERED: ALPRAZolam 0.5 MG TABLET PO ONE (11:45)
[2019-07-19] MEDS ORDERED: levoFLOXacin 750 MG/150 ML 750 MG/150 ML BAG IVPB SCH (13:00)
[2019-07-19 15:17] LABS: Protein/Creatinine Ratio,Urine 0.1 mg/mg (0.00-0.20)
[2019-07-19] MEDS: Warfarin perPT PO SCH (17:51)
[2019-07-19] MEDS ORDERED: *HR* Warfarin 5 MG TABLET PO ONE (18:00)
[2019-07-19] MEDS: Famotidine 20 MG TABLET PO SCH (19:57)
[2019-07-19] MEDS: Insulin DETEMIR 100 UNIT/ML X5UNITS SQ SCH (19:58)
[2019-07-19] MEDS: Sennosides/Docusate Sodium TABLET PO SCH (20:00)
[2019-07-20 04:31] LABS: Basophils % 0.3 %; Eosinophils % 0.1 %; Hematocrit 37.1 % (37.5-50.1); Hemoglobin 12.4 g/dL (12.9-16.9); Immature Granulocytes % 0.9 % (0-4); Lymphocytes # 1.9 K/mcL (0.6-4.6); Lymphocytes % 15.7 %; Mean Corpuscular HGB Conc 33.4 g/dL (31.6-35.5); Mean Corpuscular Hemoglobin 28.9 pg (28.0-33.3); Mean Corpuscular Volume 86.5 fL (83.0-100.0); Mean Platelet Volume 11.7 fL (9.4-12.4); Monocytes # 0.6 K/mcL (0.0-1.3); Monocytes % 4.5 %; Neutrophils # 9.7 K/mcL (1.6-8.9); Platelet Count 341 K/mcL (140-400); Red Blood Count 4.29 M/mcL (4.19-5.50); Red Cell Distribution Width 15.1 % (11.5-14.5); Segmented Neutrophils % 78.5 %; White Blood Count 12.3 K/mcL (4.3-11.1)
[2019-07-20 04:41] LABS: Prothrombin Time 22.3 Seconds (9.4-12.1)
[2019-07-20 04:53] LABS: Calcium 8.8 mg/dL (8.6-10.3); Potassium 4.2 mEq/L (3.5-5.1)
[2019-07-20] MEDS: Aspirin Enteric Coated 81 MG Tablet PO SCH (08:44)
[2019-07-20] MEDS: predniSONE 20 MG TABLET PO SCH (08:44)
[2019-07-20] MEDS: Isosorbide MONOnitrate (24 HR) 30 MG TAB.ER.24H PO SCH (08:44)
[2019-07-20] MEDS: Sennosides/Docusate Sodium TABLET PO SCH ×2 (08:44→20:32)
[2019-07-20] MEDS: Furosemide 20 MG/2 ML VIAL IVP SCH (08:44)
[2019-07-20] MEDS: Insulin LISPRO 300 UNITS/3 ML VIAL SQ SCH ×6 (08:46→17:52)
[2019-07-20] MEDS: Warfarin perPT PO SCH (17:52)
[2019-07-20] MEDS ORDERED: *HR* Warfarin 5 MG TABLET PO ONE (18:00)
[2019-07-20] MEDS: Famotidine 20 MG TABLET PO SCH (20:31)
[2019-07-20] MEDS: Insulin DETEMIR 100 UNIT/ML X5UNITS SQ SCH (20:32)
[2019-07-21 05:53] LABS: Calcium 8.7 mg/dL (8.6-10.3)
[2019-07-21 06:01] LABS: INR 2.1; Prothrombin Time 23.5 Seconds (9.4-12.1)
[2019-07-21] MEDS: Aspirin Enteric Coated 81 MG Tablet PO SCH (09:07)
[2019-07-21] MEDS: predniSONE 20 MG TABLET PO SCH (09:08)
[2019-07-21] MEDS: Isosorbide MONOnitrate (24 HR) 30 MG TAB.ER.24H PO SCH (09:08)
[2019-07-21] MEDS: Sennosides/Docusate Sodium TABLET PO SCH (09:09)
[2019-07-21] MEDS: Insulin LISPRO 300 UNITS/3 ML VIAL SQ SCH ×4 (09:10→12:14)
[2019-07-21 12:00] VITALS: BP 125/71
[2019-07-21] MEDS ORDERED: levoFLOXacin 750 MG TABLET PO SCH (12:00)
[2019-07-21] MEDS ORDERED: Furosemide 20 MG TABLET PO SCH (12:20)
[2019-07-21] MEDS: Furosemide 20 MG/2 ML VIAL IVP SCH (12:22)
[2019-07-21] MEDS ORDERED: *HR* Warfarin 5 MG TABLET PO ONE (18:00)
== END 2019-07-21 18:00 | disposition home health service (06) | DRG 291 ==
LOC: EMEROOARM 13:15 → 3BNU 13:15
PROVIDERS: ADMIT Internal Medicine; ATTEND Internal Medicine